=== PATIENT | female | born 1940 | race Caucasian/White ===

== ENCOUNTER → 2019-04-14 | Outpatient (CLI) | payer MEDICARE ==
[2019-04-14 11:36] LABS: African American GFR (CKD) >90 (>60 ml/min/1.73 sqM); Blood Urea Nitrogen 20 mg/dL (7-17); Non-African American GFR(CKD) 85 (>60 ml/min/1.73 sqM)
--- NOTE | 2019-04-14 13:58 | CT ---
EXAMINATION TYPE: CT ChestAbdPelvis wo/w con DATE OF EXAM: 04/14/2019 COMPARISON: Correlation to outside MRI lumbar spine report from 03/27/2019 HISTORY: 78-year-old female Splenomegaly TECHNIQUE: Contiguous axial scanning of the chest, abdomen, and pelvis performed without and with IV Contrast, patient injected with 100 mL of Isovue 300. Delayed images through the kidneys were obtaine d. Coronal/sagittal reconstructions performed. CT DLP: 1267.9 mGycm Automated exposure control for dose reduction was used. FINDINGS: CHEST: The heart normal size with trace anterior pericardial fluid. Scattered three-vessel coronary artery c alcifications are present as well as mild aortic valvular calcifications. Moderate atherosclerotic arch calcifications with conventional arch vessel branching anatomy. Heterogeneous hypodense nodule right lobe of thyroid gland measuring 2.2 cm to be further evaluated w ith thyroid ultrasound. Large caliber to the main right and left pulmonary arteries measuring up to 2.9 cm suggesting underly ing pulmonary arterial hypertension. No thoracic lymphadenopathy by CT size criteria. Calcified right hilar lymph nodes compatible with pr ior granulomatous disease. Numerous bilateral calcified granulomas within the lungs. Moderate centrilobular emphysema. Some stre aky atelectasis/scarring basilar right middle lobe and inferior lingula. Right apical pleural parench ymal scarring. A noncalcified 4 mm anterior right lower lung pulmonary nodule is noted on image 33 and should be keny ssessed at a 6 month follow-up. No consolidation or pleural effusion. ABDOMEN: Tiny hiatal hernia. Liver enlarged measuring 20.0 cm. No focal liver lesion. No biliary ductal dilatation. Portal venous system is patent. Cholecystectomy clips. Adrenal glands, kidneys, and pancreas appear within normal limits. Tiny punctate calcified granulomas within the spleen. Spleen is markedly enlarged measuring up to 20. 0 cm. No dilated small bowel, free fluid, or free air. No mesenteric or retroperitoneal lymphadenopathy. Moderate atherosclerotic calcification and plaque within the infrarenal abdominal aorta and iliac art eries without aneurysm. There is fusiform dilatation of the infrarenal abdominal aorta measuring soo uring up to 2.2 cm. No aneurysm. Scattered mild to moderate stool within the colon and left-sided colonic diverticulosis, greatest in the sigmoid colon. No pericolonic inflammatory change. PELVIS: Bladder is urine distended. Multiple pelvic phlebolith. Uterus surgically absent. Neither ovary is id entified. No abnormal fluid collection in the pelvis or pelvic lymphadenopathy. BONES: Heterogeneous sclerotic appearance throughout the osseous structures. Large heterogeneous enhancing solid mass with some cystic components within the musculature posterior to the right hip extending into the gluteal musculature and along the course of the right sciatic ne rve. This measures up to 7.6 cm craniocaudal by 7.1 cm wide by 4.1 cm AP dimension. IMPRESSION: 1. HEPATOSPLENOMEGALY (LIVER 20.0 CM AND SPLEEN ALSO 20.0 CM). 2. DIFFUSE HETEROGENEOUS SCLEROSIS THROUGHOUT THE OSSEOUS STRUCTURES. MYELOFIBROSIS, MYELOPROLIFERATI VE DISORDER, OR INFILTRATIVE PROCESS NOT EXCLUDED. FURTHER CLINICAL WORKUP RECOMMENDED. 3. LARGE HETEROGENEOUSLY ENHANCING SOFT TISSUE MASS INVOLVING THE MUSCULATURE OF THE POSTERIOR RIGHT HIP WITH SOME CYSTIC COMPONENTS. MASS MEASURES UP TO 7.6 CM. SARCOMA OR OTHER NEOPLASM ARE CONSIDERAT IONS. 4. A 2.2 CM RIGHT THYROID LOBE NODULE. DEDICATED THYROID ULTRASOUND RECOMMENDED TO FURTHER EVALUATE. 5. INCIDENTAL: COPD, PULMONARY ARTERIAL HYPERTENSION, PRIOR GRANULOMATOUS DISEASE, TINY HIATAL HERNIA , AND LEFT-SIDED COLONIC DIVERTICULOSIS.
== END | disposition home or self-care (01) ==
LOC: RADCTMAIN 10:37
PROVIDERS: ATTEND Surgery
DX: R16.2 Hepatomegaly with splenomegaly, not elsewhere classified (principal); E04.1 Nontoxic single thyroid nodule
CPT/HCPCS: 82565; 84520; 71270; 74178; 36415; Q9967 ×2

== ENCOUNTER → 2019-05-10 | Outpatient (CLI) | payer MEDICARE | END | disposition home or self-care (01) | DX: D48.1 Neoplasm of uncertain behavior of connective and other soft tissue (principal) | CPT/HCPCS: 36415; 80053; 84443; 85025; 85610; 85730 ==

== ENCOUNTER 2019-05-26 12:36 | Inpatient (IN) | payer MEDICARE ==
[~2019-05-26 12:36] MED LIST: PROPOFOL 10 MG/ML 20 ML VIAL IV ONE; SUCCINYLCHOLINE CHLORIDE VIAL 200 MG/10 ML VIAL IV ONE
[2019-05-26] MEDS ORDERED: SODIUM CHLORIDE 0.9% 1,000 ML IV STA (13:18)
--- NOTE | 2019-05-26 13:35 | ED ---
General Adult HPI - General Source: patient, RN notes reviewed Mode of arrival: ambulatory Limitations: no limitations <Cole Freedman - Last Filed: 05/26/19 15:16> <Benjie Gomez - Last Filed: 05/26/19 15:53> - General Chief complaint: Nausea/Vomiting/Diarrhea Stated complaint: aches and sweating Time Seen by Provider: 05/26/19 13:01 - History of Present Illness Initial comments: 78-year-old female with a past medical history of hypertension currently taking medications presents to the emergency department for nausea 4 days. Patient states that she has been very nauseous and unable to keep down solid foods. States she has been able to drink water and [employer]. States that when she tries to eat solid foods she "spits it up." States that she has also been sweating more than normal especially on her scalp but denies fevers. Denies cough. Patient denies any chest or abdominal pain. Denies shortness of breath. Does admit she feels somewhat weak if she has not been able to eat much. Patient was recently diagnosed with a large soft tissue mass involving the posterior right hip. She had this biopsied one week ago and is awaiting results.Patient has no other complaints at this time including shortness of breath, chest pain, abdominal pain, headache, or visual changes. (Cole Freedman) - Related Data Allergies Allergy/AdvReac Type Severity Reaction Status Date / Time No Known Allergies Allergy Verified 05/26/19 15:42 Review of Systems ROS Other: All systems not noted in ROS Statement are negative. <Cole Freedman - Last Filed: 05/26/19 15:16> ROS Other: All systems not noted in ROS Statement are negative. <Benjie Gomez - Last Filed: 05/26/19 15:53> ROS Statement: Those systems with pertinent positive or pertinent negative responses have been documented in the HPI. 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 History of Any Multi-Drug Resistant Organisms: None Reported Past Surgical History: Cholecystectomy, Hysterectomy, Orthopedic Surgery Additional Past Surgical History / Comment(s): bowel suspension,throat polyp removed,adhesions removed,lt shoulder Past Psychological History: Depression Smoking Status: Former smoker Past Alcohol Use History: Occasional Past Drug Use History: None Reported <Cole Freedman - Last Filed: 05/26/19 15:16> General Exam Limitations: no limitations General appearance: alert, in no apparent distress Head exam: Present: atraumatic, normocephalic, normal inspection Eye exam: Present: normal appearance, PERRL, EOMI. Absent: scleral icterus, conjunctival injection, periorbital swelling ENT exam: Present: normal exam, mucous membranes moist Neck exam: Present: normal inspection, full ROM. Absent: tenderness, meningismus, lymphadenopathy Respiratory exam: Present: normal lung sounds bilaterally. Absent: respiratory distress, wheezes, rales, rhonchi, stridor Cardiovascular Exam: Present: regular rate, normal rhythm, normal heart sounds. Absent: systolic murmur, diastolic murmur, rubs, gallop, clicks GI/Abdominal exam: Present: soft, normal bowel sounds. Absent: distended, tenderness, guarding, rebound, rigid Neurological exam: Present: alert <Cole Freedman - Last Filed: 05/26/19 15:16> Course Vital Signs 05/26/19 05/26/19 12:44 15:00 Temperature 98.4 F Pulse Rate 87 87 Respiratory 20 18 Rate Blood Pressure 123/72 149/71 O2 Sat by Pulse 97 95 Oximetry EKG Findings - EKG Comments: EKG Findings:: Normal sinus rhythm, ventricular rate 89, DE interval 116, QTc 467. 2nd EKG @ 1457 sinus rhythm, PVCs noted, ventricular rate 85, DE interval 122, QTc 471 <Cole Freedman - Last Filed: 05/26/19 15:16> Medical Decision Making - Lab Data Result diagrams: 05/26/19 13:29 05/26/19 13:29 <Cole Freedman - Last Filed: 05/26/19 15:16> - Lab Data Result diagrams: 05/26/19 13:29 05/26/19 13:29 <Benjie Gomez - Last Filed: 05/26/19 15:53> - Medical Decision Making Vitals are stable. Patient is a well-appearing. CBC shows chronic anemia with a hemoglobin of 10. CMP is unremarkable. Mild dehydration is noted and patient was given fluids. EKG was obtained which did show T-wave inversions. Given inversions without previous EKG to compare troponin was obtained which was found to be elevated at 0.418. Patient was given aspirin and started on low-dose heparin. EKG was repeated. Chest x-ray was obtained which showed mild peribronchial cuffing. There are subcentimeter bilateral pulmonary nodules seen on the prior CT from March. Patient did receive these results from her doctor. Dr. Gomez spoke with Dr. Huntley who does accept the admission, recommends echo. Cardiology consulted, trop trending. (Cole Freedman) Patient reevaluated and reexamined by myself, Dr. Gomez. EKGs and results reviewed. Patient updated on results and plan. Case was discussed in detail [facility] Dr. sujey reynolds, who will admit covering for hospital call. I do agree with PA findings. This includes diagnostic interpretation and treatment plan. (Benjie Gomez) - Lab Data Lab Results 05/26/19 05/26/19 05/26/19 Range/Units 13:29 13:29 13:29 WBC 5.7 (3.8-10.6) k/uL RBC 4.22 (3.80-5.40) m/uL Hgb 10.0 L (11.4-16.0) gm/dL Hct 31.8 L (34.0-46.0) % MCV 75.4 L D (80.0-100.0) fL MCH 23.7 L (25.0-35.0) pg MCHC 31.4 (31.0-37.0) g/dL RDW 18.3 H (11.5-15.5) % Plt Count 227 (150-450) k/uL Neutrophils % 83 % Lymphocytes % 9 % Monocytes % 5 % Eosinophils % 1 % Basophils % 0 % Neutrophils # 4.7 (1.3-7.7) k/uL Lymphocytes # 0.5 L (1.0-4.8) k/uL Monocytes # 0.3 (0-1.0) k/uL Eosinophils # 0.0 (0-0.7) k/uL Basophils # 0.0 (0-0.2) k/uL Hypochromasia Moderate Poikilocytosis Moderate Anisocytosis Slight Microcytosis Moderate PT 11.0 (9.0-12.0) sec INR 1.1 (<1.2) APTT 29.9 (22.0-30.0) sec Sodium 134 L (137-145) mmol/L Potassium 4.5 (3.5-5.1) mmol/L Chloride 98 (98-107) mmol/L Carbon Dioxide 26 (22-30) mmol/L Anion Gap 10 mmol/L BUN 22 H (7-17) mg/dL Creatinine 0.72 (0.52-1.04) mg/dL Est GFR (CKD-EPI)AfAm >90 (>60 ml/min/1.73 sqM) Est GFR (CKD-EPI)NonAf 82 (>60 ml/min/1.73 sqM) Glucose 118 H (74-99) mg/dL Calcium 8.7 (8.4-10.2) mg/dL Magnesium 1.8 (1.6-2.3) mg/dL Total Bilirubin 0.9 (0.2-1.3) mg/dL AST 20 (14-36) U/L ALT 11 (4-34) U/L Alkaline Phosphatase 219 H (38-126) U/L Troponin I (0.000-0.034) ng/mL Total Protein 6.4 (6.3-8.2) g/dL Albumin 3.7 (3.5-5.0) g/dL Urine Color Urine Appearance (Clear) Urine pH (5.0-8.0) Ur Specific [place] (1.001-1.035) Urine Protein (Negative) Urine Glucose (UA) (Negative) Urine Ketones (Negative) Urine Blood (Negative) Urine Nitrite (Negative) Urine Bilirubin (Negative) Urine Urobilinogen (<2.0) mg/dL Ur Leukocyte Esterase (Negative) Urine RBC (0-5) /hpf Urine WBC (0-5) /hpf Ur Squamous Epith Cells (0-4) /hpf Urine Bacteria (None) /hpf Hyaline Casts (0-2) /lpf Urine Mucus (None) /hpf 05/26/19 05/26/19 Range/Units 13:29 13:56 WBC (3.8-10.6) k/uL RBC (3.80-5.40) m/uL Hgb (11.4-16.0) gm/dL Hct (34.0-46.0) % MCV (80.0-100.0) fL MCH (25.0-35.0) pg MCHC (31.0-37.0) g/dL RDW (11.5-15.5) % Plt Count (150-450) k/uL Neutrophils % % Lymphocytes % % Monocytes % % Eosinophils % % Basophils % % Neutrophils # (1.3-7.7) k/uL Lymphocytes # (1.0-4.8) k/uL Monocytes # (0-1.0) k/uL Eosinophils # (0-0.7) k/uL Basophils # (0-0.2) k/uL Hypochromasia Poikilocytosis Anisocytosis Microcytosis PT (9.0-12.0) sec INR (<1.2) APTT (22.0-30.0) sec Sodium (137-145) mmol/L Potassium (3.5-5.1) mmol/L Chloride (98-107) mmol/L Carbon Dioxide (22-30) mmol/L Anion Gap mmol/L BUN (7-17) mg/dL Creatinine (0.52-1.04) mg/dL Est GFR (CKD-EPI)AfAm (>60 ml/min/1.73 sqM) Est GFR (CKD-EPI)NonAf (>60 ml/min/1.73 sqM) Glucose (74-99) mg/dL Calcium (8.4-10.2) mg/dL Magnesium (1.6-2.3) mg/dL Total Bilirubin (0.2-1.3) mg/dL AST (14-36) U/L ALT (4-34) U/L Alkaline Phosphatase (38-126) U/L Troponin I 0.418 H* (0.000-0.034) ng/mL Total Protein (6.3-8.2) g/dL Albumin (3.5-5.0) g/dL Urine Color Yellow Urine Appearance Turbid H (Clear) Urine pH 6.0 (5.0-8.0) Ur Specific [place] 1.028 (1.001-1.035) Urine Protein 1+ H (Negative) Urine Glucose (UA) Negative (Negative) Urine Ketones Negative (Negative) Urine Blood Negative (Negative) Urine Nitrite Negative (Negative) Urine Bilirubin Negative (Negative) Urine Urobilinogen 3.0 (<2.0) mg/dL Ur Leukocyte Esterase Moderate H (Negative) Urine RBC 2 (0-5) /hpf Urine WBC 12 H (0-5) /hpf Ur Squamous Epith Cells 1 (0-4) /hpf Urine Bacteria Rare H (None) /hpf Hyaline Casts 3 H (0-2) /lpf Urine Mucus Occasional H (None) /hpf Disposition Is patient prescribed a controlled substance at d/c from ED?: No Time of Disposition: 15:16 <Cole Freedman - Last Filed: 05/26/19 15:16> <Benjie Gomez - Last Filed: 05/26/19 15:53> Clinical Impression: Elevated troponin, NSTEMI (non-ST elevated myocardial infarction) Disposition: ADMITTED IP TO THIS HOSP
[2019-05-26 13:44] LABS: Anisocytosis Slight; Basophils % (A) 0 %; Eosinophils % (A) 1 %; HCT 31.8 % (34.0-46.0); Hypochromasia Moderate; Lymphocytes # (A) 0.5 k/uL (1.0-4.8); Lymphocytes % (A) 9 %; MCH 23.7 pg (25.0-35.0); MCHC 31.4 g/dL (31.0-37.0); Mean Platelet Volume 9.5; Microcytosis Moderate; Monocytes # (A) 0.3 k/uL (0-1.0); Monocytes % (A) 5 %; Neutrophils # (A) 4.7 k/uL (1.3-7.7); Neutrophils % (A) 83 %; Platelet Count 227 k/uL (150-450); Poikilocytosis Moderate; RBC 4.22 m/uL (3.80-5.40); RDW 18.3 % (11.5-15.5); WBC 5.7 k/uL (3.8-10.6)
[2019-05-26 13:53] LABS: MCV 75.4 fL (80.0-100.0)
[2019-05-26 13:54] LABS: INR 1.1 (<1.2); Partial Thromboplastin Time 29.9 sec (22.0-30.0)
[2019-05-26 13:58] LABS: African American GFR (CKD) >90 (>60 ml/min/1.73 sqM); Anion Gap 10 mmol/L; Blood Urea Nitrogen 22 mg/dL (7-17); Carbon Dioxide 26 mmol/L (22-30); Chloride 98 mmol/L (98-107); Glucose 118 mg/dL (74-99); Potassium 4.5 mmol/L (3.5-5.1); Sodium 134 mmol/L (137-145)
[2019-05-26 13:59] LABS: ALT 11 U/L (4-34); AST 20 U/L (14-36); Albumin 3.7 g/dL (3.5-5.0); Alkaline Phosphatase 219 U/L (38-126); Calcium 8.7 mg/dL (8.4-10.2); Magnesium 1.8 mg/dL (1.6-2.3); Non-African American GFR(CKD) 82 (>60 ml/min/1.73 sqM); Total Bilirubin 0.9 mg/dL (0.2-1.3); Total Protein 6.4 g/dL (6.3-8.2)
--- NOTE | 2019-05-26 14:09 | XR ---
EXAMINATION TYPE: XR chest 2V DATE OF EXAM: 05/26/2019 COMPARISON: CT dated 04/14/2019 HISTORY: Weakness and vomiting TECHNIQUE: Frontal and lateral views of the chest are obtained. FINDINGS: There is no focal air space opacity, pleural effusion, or pneumothorax seen. Peribronchia l cuffing is seen diffusely. Mild emphysematous changes of the lungs. The subcentimeter pulmonary nod ules are better seen on the prior CT. The cardiac silhouette size is mildly enlarged. The osseous s tructures are intact. Mild multilevel degenerative change of the spine. IMPRESSION: 1. Mild peribronchial cuffing that could be on the basis of reactive airway disease or acute infectio us etiology such as bronchitis. Mild emphysematous changes of the lungs. 2. The subcentimeter bilateral pulmonary nodules seen on the prior CT of 04/14/2019 are better visuali zed on CT than x-ray.
[2019-05-26] MEDS ORDERED: ONDANSETRON 4 MG/2 ML VIAL IVP STA (14:30)
[2019-05-26 14:39] LABS: Appearance,Urine Turbid (Clear); Bacteria,Urine Rare /hpf; Bilirubin,Urine Negative (Negative); Blood,Urine Negative (Negative); Color,Urine Yellow; Glucose,Urine (UA) Negative (Negative); Hyaline Casts,Urine 3 /lpf (0-2); Ketones,Urine Negative (Negative); Leukocyte Esterase,Urine Moderate (Negative); Mucus,Urine Occasional /hpf; Nitrite,Urine Negative (Negative); Protein,Urine 1+ (Negative); RBC,Urine 2 /hpf (0-5); Specific Gravity,Urine 1.028 (1.001-1.035); Squamous Epithelial Cell,Urine 1 /hpf (0-4); WBC,Urine 12 /hpf (0-5)
[2019-05-26] MEDS ORDERED: HEPARIN SODIUM,PORCINE 5,000 UNIT/ML 1 ML VIAL IV PRN (14:39)
[2019-05-26] MEDS ORDERED: HEPARIN SODIUM,PORCINE 5,000 UNIT/ML 1 ML VIAL IV ONE (14:39)
[2019-05-26] MEDS ORDERED: HEPARIN SOD,PORK IN 0.45% NACL 25,000 UNIT in 0.45% NACL 1 250ML.BAG IV SCH (14:45)
[2019-05-26] MEDS ORDERED: ASPIRIN 81 MG PO STA (14:50)
[2019-05-26] MEDS ORDERED: NITROGLYCERIN SL TABS 0.4 MG TAB SUBLINGUAL PRN (15:09)
[2019-05-26] MEDS ORDERED: PANTOPRAZOLE 40 MG TABLET PO STA (16:47)
--- NOTE | 2019-05-26 16:48 | P.HPIM ---
History of Present Illness H&P Date: 05/26/19 Chief Complaint: Nausea vomiting abdominal pain The patient is a 78-year-old female with a past medical history of essential hypertension That presented to the ER via private vehicle with chief complaint of epigastric abdominal pain and nausea and retching for the last 4 days. The patient reports decreased ability to keep food down, she reports the pain as moderate to severe denies any radiation, she denies diarrhea or constipation, she denies subjective fevers chills or night sweats. She is only able to keep down water and sosa drake, she reports repeated episodes of retching and denies any overt vomiting. She denies any chest pain, denies shortness of breath, denies any specific precipitating or relieving factors. The patient does follow with Dr. Flowers and is currently being worked up for right Posterior hip soft tissue mass that was apparently biopsied one week ago and she is currently waiting the results. She does report some lower extremity s welling. She denies any other complaints. The patient does report a cough but attributes to postnasal drip and ALLERGY symptoms In the ER showed her workup consisted of a chest x-ray showed mild peribronchial cuffing that could be on the basis of reactive air disease or infectious etiologies as bronchitis, with mild emphysematous changes of the long. She has bilateral pulmonary nodules that are again visualized on chest x-ray. Labs on admission include sodium of 134, troponin 0.418, EKG showed T-wave inversions. 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 History of Any Multi-Drug Resistant Organisms: None Reported Past Surgical History: Cholecystectomy, Hysterectomy, Orthopedic Surgery Additional Past Surgical History / Comment(s): bowel suspension,throat polyp removed,adhesions removed,lt shoulder Past Psychological History: Depression Smoking Status: Former smoker Past Alcohol Use History: Occasional Past Drug Use History: None Reported Medications and Allergies Home Medications Medication Instructions Recorded Confirmed Type Fosinopril [Monopril] 10 mg PO HS 05/26/19 05/26/19 History PARoxetine HCL [Paxil] 10 mg PO DAILY 05/26/19 05/26/19 History Allergies Allergy/AdvReac Type Severity Reaction Status Date / Time No Known Allergies Allergy Verified 05/26/19 15:42 Physical Exam Vitals: Vital Signs Temp Pulse Resp BP Pulse Ox 05/26/19 15:00 87 18 149/71 95 05/26/19 12:44 98.4 F 87 20 123/72 97 Intake and Output 05/26/19 05/26/19 05/26/19 06:59 14:59 22:59 Other: Weight 68.946 kg Constitutional: No acute distress, conversant, pleasant Eyes: Anicteric sclerae, moist conjunctiva, no lid-lag, PERRLA ENMT: NC/AT,Oropharynx clear, no erythema, exudates Neck:Supple, FROM, no masses, or JVD, No carotid bruits; No thyromegaly Lungs: Clear to auscultation, Clear to percussion, Normal respiratory effort, no accessory muscle use Cardiovascular: Heart regular in rate and rhythm, No murmurs, gallops, or rubs no peripheral edema Abdominal: Soft Nontender, nom distended, no guarding, no rebound or rigidity, Normoactive bowel sounds No hepatomegaly, No splenomegaly, No palpable mass No abdominal wall hernia noted Skin: Normal temperature, tone, texture, turgor, No induration No subcutaneous nodules, No rash, lesions, No ulcers Extremities:No digital cyanosis No clubbing, Pedal pulses intact and symmetrical Radial pulses intact and symmetrical Normal gait and station, No calf tenderness Psychiatric: Alert and oriented to person, place and time, Appropriate affect Intact judgement Neuro: Muscles Strength 5/5 in all 4 extremities, Sensation to light touch grossly present throughout, Cranial nerves II-XII grossly intact. No focal sensory deficits Results CBC & Chem 7: 05/26/19 13:29 05/26/19 13:29 Labs: Abnormal Lab Results - Last 24 Hours (Table) 05/26/19 05/26/19 05/26/19 Range/Units 13:29 13:29 13:29 Hgb 10.0 L (11.4-16.0) gm/dL Hct 31.8 L (34.0-46.0) % MCV 75.4 L D (80.0-100.0) fL MCH 23.7 L (25.0-35.0) pg RDW 18.3 H (11.5-15.5) % Lymphocytes # 0.5 L (1.0-4.8) k/uL Sodium 134 L (137-145) mmol/L BUN 22 H (7-17) mg/dL Glucose 118 H (74-99) mg/dL Alkaline Phosphatase 219 H (38-126) U/L Troponin I 0.418 H* (0.000-0.034) ng/mL Urine Appearance (Clear) Urine Protein (Negative) Ur Leukocyte Esterase (Negative) Urine WBC (0-5) /hpf Urine Bacteria (None) /hpf Hyaline Casts (0-2) /lpf Urine Mucus (None) /hpf 05/26/19 Range/Units 13:56 Hgb (11.4-16.0) gm/dL Hct (34.0-46.0) % MCV (80.0-100.0) fL MCH (25.0-35.0) pg RDW (11.5-15.5) % Lymphocytes # (1.0-4.8) k/uL Sodium (137-145) mmol/L BUN (7-17) mg/dL Glucose (74-99) mg/dL Alkaline Phosphatase (38-126) U/L Troponin I (0.000-0.034) ng/mL Urine Appearance Turbid H (Clear) Urine Protein 1+ H (Negative) Ur Leukocyte Esterase Moderate H (Negative) Urine WBC 12 H (0-5) /hpf Urine Bacteria Rare H (None) /hpf Hyaline Casts 3 H (0-2) /lpf Urine Mucus Occasional H (None) /hpf Assessment and Plan Assessment: Non-STEMI Intractable nausea and abdominal pain Viral bronchitis Essential hypertension Hyponatremia Hip tumor Plan: Patient is admitted anticipated in 2 midnight stay with concern for possible non-STEMI presenting with abdominal pain nausea noted to have elevated troponin of 0.418, will plan to trend her troponins, EKG showed some T-wave inversion. continue her on heparin drip and aspirin per chest pain protocol. We'll follow- up echocardiogram and cardiology recommendations, the patient is also have lymphopenia along with cough with noted peribronchial cuffing on chest x-ray, will order LDH, ferritin, Propulsid tone and Covid-19, we'll follow-up lipid panel. Noted abnormal urinalysis urine culture has been sent. The patient also has a chronic anemia , willl follow-up iron studies and continue to observe closely. The patient started on PPI and anticoagulation for GI and DVT prophylaxis respectively CODE STATUS: Full code Anticipated discharge place: Home Discussed plan of care with: Patient and nurse Greater than 60 minutes was spent in evaluation of this patient
[2019-05-26] MEDS: ONDANSETRON 4 MG/2 ML VIAL IVP PRN (21:23)
[2019-05-26] MEDS: lisinopriL 10 MG TAB PO SCH (21:23)
[2019-05-26] MEDS: HYDROcodone/APAP 10-325MG 1 EACH TAB PO PRN (23:09)
--- NOTE | 2019-05-27 00:36 | P.EN ---
I was notified by RN . patient falgged for possible sepsis I reviewed the case with SHERICE queen patient has no new complaints, she is here for R/O NSTEMI, and had GI symptoms currently with fever and tachycardia troponins trending down, no chest pain we reviewed possible sources of infection , and evaluate for need of antibiotics at this time, UA slightly abnormal but patient denies urinary symptoms no abd pain , no diarrhea at this time very mild occasional coughing, no SOB, no chest pain, no body aches (patient has chronic hip pain unchanged) patient being tested for COVID, and I highly suspect COVID-19 infection on her patient has received 1 L bolus normal saline in light of possible underlying COVID-19 most expert advise against initial IVF bolus and recommending conservative fluid resuscitation in patient with hypotension or shock currently SBP in 140s i would not give patient any further IVF at this time no identified source of infection that warrants ABx at this time no leukocytosis CXR reviewed plan close monitoring supportive care check Lactic acid
[2019-05-27] MEDS: ACETAMINOPHEN TAB 325 MG TAB PO PRN ×2 (01:27→08:30)
[2019-05-27 02:32] LABS: % Iron Saturation 3.83 (12.00-45.00)
[2019-05-27 02:38] LABS: Ferritin 524.4 ng/mL (10.0-291.0)
[2019-05-27] MEDS: PANTOPRAZOLE 40 MG TABLET PO SCH (05:17)
[2019-05-27] MEDS ORDERED: AZITHROMYCIN 500 MG TAB PO STA (07:52)
[2019-05-27 08:00] LABS: Anisocytosis Slight; Basophils % (A) 0 %; Eosinophils % (A) 0 %; HCT 29.6 % (34.0-46.0); HGB 9.1 gm/dL (11.4-16.0); Hypochromasia Moderate; Lymphocytes # (A) 0.6 k/uL (1.0-4.8); Lymphocytes % (A) 15 %; MCH 23.5 pg (25.0-35.0); MCHC 30.8 g/dL (31.0-37.0); MCV 76.3 fL (80.0-100.0); Mean Platelet Volume 9.7; Microcytosis Slight; Monocytes # (A) 0.2 k/uL (0-1.0); Monocytes % (A) 4 %; Neutrophils % (A) 78 %; Platelet Count 193 k/uL (150-450); Poikilocytosis Moderate; RBC 3.88 m/uL (3.80-5.40); RDW 18.2 % (11.5-15.5); WBC 3.8 k/uL (3.8-10.6)
[2019-05-27 08:02] LABS: Cholesterol 89 mg/dL (<200); HDL Cholesterol 26 mg/dL (40-60); LDL Cholesterol,Calculated 40 mg/dL (0-99); Triglycerides 115 mg/dL (<150)
[2019-05-27] MEDS: PARoxetine 10 MG TAB PO SCH (08:31)
[2019-05-27] MEDS: ASPIRIN 325 MG TAB PO SCH (08:31)
--- NOTE | 2019-05-27 09:26 | XR ---
EXAMINATION TYPE: XR chest 1V portable DATE OF EXAM: 05/27/2019 COMPARISON: 05/26/2019 HISTORY: Sepsis. Fever. Shortness of breath. TECHNIQUE: Single frontal view of the chest is obtained. FINDINGS: Paratracheal cuffing now appears as more prominent pulmonary vascular congestion. No new f ocal consolidation, pleural effusion or pneumothorax. Cardiomediastinal silhouette is shifted to the left secondary to patient rotation but overall stable in size. Mild degenerative change of the spine. IMPRESSION: Mild diffuse pulmonary vascular congestion that may be on the basis of cardiogenic or no ncardiogenic fluid overload.
[2019-05-27] MEDS: HYDROcodone/APAP 10-325MG 1 EACH TAB PO PRN ×3 (09:44→21:58)
[2019-05-27] MEDS: ONDANSETRON 4 MG/2 ML VIAL IVP PRN ×2 (09:45→16:03)
--- NOTE | 2019-05-27 09:50 | ECHOF ---
Referral Reason:NSTEMI MEASUREMENTS -------- HEIGHT: 160.0 cm WEIGHT: 76.2 kg BP: 120/62 RVIDd: 3.4 cm (< 3.3) IVSd: 1.1 cm (0.6 - 1.1) LVIDd: 4.5 cm (3.9 - 5.3) LVPWd: 1.1 cm (0.6 - 1.1) IVSs: 1.6 cm LVIDs: 3.3 cm LVPWs: 1.9 cm LA Diam: 3.7 cm (2.7 - 3.8) LAESV Index (A-L): 39.91 ml/m Ao Diam: 3.0 cm (2.0 - 3.7) AV Cusp: 1.7 cm (1.5 - 2.6) MV EXCURSION: 16.920 mm (> 18.000) MV EF SLOPE: 71 mm/s (70 - 150) EPSS: 0.9 cm MV E Henry: 1.25 m/s MV DecT: 147 ms MV A Henry: 1.20 m/s MV E/A Ratio: 1.04 RAP: 5.00 mmHg RVSP: 54.92 mmHg FINDINGS -------- Sinus rhythm. Resting tachycardia (HR>100bpm). This was a technically adequate study. The left ventricular size is normal. There is borderline concentric left ventricular hypertrophy. Overall left ventricular systolic function is normal with, an EF between 55 - 60 %. The right ventricle is mildly enlarged. LA is moderately dilated 34-39 ml/m2 The right atrial size is normal. Interatrial and interventricular septum intact. Can't exclude possible Bicuspid Aov. The mitral valve is normal. Phno-am-lireynng mitral regurgitation is present. Mild tricuspid regurgitation present. There is moderate to severe pulmonary hypertension. The rig ht ventricular systolic pressure, as measured by Doppler, is 54.92mmHg. Trace/mild (physiologic) pulmonic regurgitation. The aortic root size is normal. Normal inferior vena cava with normal inspiratory collapse consistent with estimated right atrial pre ssure of 5 mmHg. There is no pericardial effusion. CONCLUSIONS -------- 1. There is borderline concentric left ventricular hypertrophy. 2. Overall left ventricular systolic function is normal with, an EF between 55 - 60 %. 3. The right ventricle is mildly enlarged. 4. LA is moderately dilated 34-39 ml/m2 5. Can't exclude possible Bicuspid Aov. 6. Aghw-as-peuwojsp mitral regurgitation is present. 7. Mild tricuspid regurgitation present. 8. There is moderate to severe pulmonary hypertension. 9. The right ventricular systolic pressure, as measured by Doppler, is 54.92mmHg. 10. Trace/mild (physiologic) pulmonic regurgitation. 11. Normal inferior vena cava with normal inspiratory collapse consistent with estimated right atrial pressure of 5 mmHg. 12. There is no pericardial effusion. CHICKEN SEXER: Sabi Lo RDCS
[2019-05-27] MEDS: HYDROXYCHLOROQUINE SULFATE 200 MG TAB PO SCH ×2 (11:42→21:57)
--- NOTE | 2019-05-27 12:19 | P.PN ---
Subjective Progress Note Date: 05/27/19 Patient seen and examined at bedside apparently was febrile overnight the patient was flagged for possible sepsis, patient does complain of hip pain, the troponin went from 0.195-0.190. Inflammatory markers are elevated, Hemoglobin is 9.1 today, urinalysis also stress of infection influenza A and B were negative. Patient febrile overnight Objective - Vital Signs Vital signs: Vital Signs Temp 99.1 F 05/27/19 11:50 Pulse 72 05/27/19 11:50 Resp 18 05/27/19 11:50 BP 123/58 05/27/19 11:50 Pulse Ox 98 05/27/19 11:50 Intake & Output 05/26/19 05/27/19 05/27/19 18:59 06:59 18:59 Intake Total 240 306.468 Balance 240 306.468 Weight 68.946 kg 76.4 kg Intake: Intake, IV Titration 66.468 Amount Heparin Sod,Pork in 0.45% 66.468 NaCl 25,000 unit In 0.45 % NaCl 1 250ml.bag @ 12 UNITS/KG/HR 8.274 mls/hr IV .Q24H [facility] Rx#: [id number] Oral 240 240 Other: # Voids 2 - Exam Constitutional: No acute distress, conversant, pleasant Eyes: Anicteric sclerae, moist conjunctiva, no lid-lag, PERRLA ENMT: NC/AT,Oropharynx clear, no erythema, exudates Neck:Supple, FROM, no masses, or JVD, No carotid bruits; No thyromegaly Lungs: Scattered rhonchi, with bilateral basilar crackles, unlabored on 2 L via nasal cannula Cardiovascular: Heart regular in rate and rhythm, No murmurs, gallops, or rubs no peripheral edema Abdominal: Soft Nontender, nom distended, no guarding, no rebound or rigidity, Normoactive bowel sounds No hepatomegaly, No splenomegaly, No palpable mass No abdominal wall hernia noted Skin: Normal temperature, tone, texture, turgor, No induration No subcutaneous nodules, No rash, lesions, No ulcers Extremities:No digital cyanosis No clubbing, Pedal pulses intact and symmetrical Radial pulses intact and symmetrical Normal gait and station, No calf tenderness Psychiatric: Alert and oriented to person, place and time, Appropriate affect Intact judgement Neuro: Muscles Strength 5/5 in all 4 extremities, Sensation to light touch grossly present throughout, Cranial nerves II-XII grossly intact. No focal sensory deficits - Labs CBC & Chem 7: 05/27/19 07:21 05/26/19 13:29 Labs: Abnormal Lab Results - Last 24 Hours (Table) 05/26/19 05/26/19 05/26/19 Range/Units 13:29 13:29 13:29 Hgb 10.0 L (11.4-16.0) gm/dL Hct 31.8 L (34.0-46.0) % MCV 75.4 L D (80.0-100.0) fL MCH 23.7 L (25.0-35.0) pg MCHC (31.0-37.0) g/dL RDW 18.3 H (11.5-15.5) % Lymphocytes # 0.5 L (1.0-4.8) k/uL APTT (22.0-30.0) sec Sodium 134 L (137-145) mmol/L BUN 22 H (7-17) mg/dL Glucose 118 H (74-99) mg/dL Plasma Lactic Acid Mike (0.7-2.0) mmol/L Iron (50-170) ug/dL % Saturation (12.00-45.00) Ferritin (10.0-291.0) ng/mL Alkaline Phosphatase 219 H (38-126) U/L Lactate Dehydrogenase (313-618) U/L Troponin I 0.418 H* (0.000-0.034) ng/mL HDL Cholesterol (40-60) mg/dL Procalcitonin (0.02-0.09) ng/mL Urine Appearance (Clear) Urine Protein (Negative) Ur Leukocyte Esterase (Negative) Urine WBC (0-5) /hpf Urine Bacteria (None) /hpf Hyaline Casts (0-2) /lpf Urine Mucus (None) /hpf 05/26/19 05/26/19 05/26/19 Range/Units 13:56 20:37 20:37 Hgb (11.4-16.0) gm/dL Hct (34.0-46.0) % MCV (80.0-100.0) fL MCH (25.0-35.0) pg MCHC (31.0-37.0) g/dL RDW (11.5-15.5) % Lymphocytes # (1.0-4.8) k/uL APTT 52.7 H (22.0-30.0) sec Sodium (137-145) mmol/L BUN (7-17) mg/dL Glucose (74-99) mg/dL Plasma Lactic Acid Mike (0.7-2.0) mmol/L Iron (50-170) ug/dL % Saturation (12.00-45.00) Ferritin (10.0-291.0) ng/mL Alkaline Phosphatase (38-126) U/L Lactate Dehydrogenase (313-618) U/L Troponin I 0.195 H* (0.000-0.034) ng/mL HDL Cholesterol (40-60) mg/dL Procalcitonin (0.02-0.09) ng/mL Urine Appearance Turbid H (Clear) Urine Protein 1+ H (Negative) Ur Leukocyte Esterase Moderate H (Negative) Urine WBC 12 H (0-5) /hpf Urine Bacteria Rare H (None) /hpf Hyaline Casts 3 H (0-2) /lpf Urine Mucus Occasional H (None) /hpf 05/26/19 05/26/19 05/27/19 Range/Units 20:37 20:37 01:18 Hgb (11.4-16.0) gm/dL Hct (34.0-46.0) % MCV (80.0-100.0) fL MCH (25.0-35.0) pg MCHC (31.0-37.0) g/dL RDW (11.5-15.5) % Lymphocytes # (1.0-4.8) k/uL APTT (22.0-30.0) sec Sodium (137-145) mmol/L BUN (7-17) mg/dL Glucose (74-99) mg/dL Plasma Lactic Acid Mike (0.7-2.0) mmol/L Iron 9 L (50-170) ug/dL % Saturation 3.83 L (12.00-45.00) Ferritin 524.4 H (10.0-291.0) ng/mL Alkaline Phosphatase (38-126) U/L Lactate Dehydrogenase 1047 H (313-618) U/L Troponin I 0.190 H* (0.000-0.034) ng/mL HDL Cholesterol (40-60) mg/dL Procalcitonin 0.39 H (0.02-0.09) ng/mL Urine Appearance (Clear) Urine Protein (Negative) Ur Leukocyte Esterase (Negative) Urine WBC (0-5) /hpf Urine Bacteria (None) /hpf Hyaline Casts (0-2) /lpf Urine Mucus (None) /hpf 05/27/19 05/27/19 05/27/19 Range/Units 01:18 07:21 07:21 Hgb 9.1 L (11.4-16.0) gm/dL Hct 29.6 L (34.0-46.0) % MCV 76.3 L (80.0-100.0) fL MCH 23.5 L (25.0-35.0) pg MCHC 30.8 L (31.0-37.0) g/dL RDW 18.2 H (11.5-15.5) % Lymphocytes # 0.6 L (1.0-4.8) k/uL APTT (22.0-30.0) sec Sodium (137-145) mmol/L BUN (7-17) mg/dL Glucose (74-99) mg/dL Plasma Lactic Acid Mike <0.5 L (0.7-2.0) mmol/L Iron (50-170) ug/dL % Saturation (12.00-45.00) Ferritin (10.0-291.0) ng/mL Alkaline Phosphatase (38-126) U/L Lactate Dehydrogenase (313-618) U/L Troponin I (0.000-0.034) ng/mL HDL Cholesterol 26 L (40-60) mg/dL Procalcitonin (0.02-0.09) ng/mL Urine Appearance (Clear) Urine Protein (Negative) Ur Leukocyte Esterase (Negative) Urine WBC (0-5) /hpf Urine Bacteria (None) /hpf Hyaline Casts (0-2) /lpf Urine Mucus (None) /hpf 05/27/19 Range/Units 07:21 Hgb (11.4-16.0) gm/dL Hct (34.0-46.0) % MCV (80.0-100.0) fL MCH (25.0-35.0) pg MCHC (31.0-37.0) g/dL RDW (11.5-15.5) % Lymphocytes # (1.0-4.8) k/uL APTT 45.3 H (22.0-30.0) sec Sodium (137-145) mmol/L BUN (7-17) mg/dL Glucose (74-99) mg/dL Plasma Lactic Acid Mike (0.7-2.0) mmol/L Iron (50-170) ug/dL % Saturation (12.00-45.00) Ferritin (10.0-291.0) ng/mL Alkaline Phosphatase (38-126) U/L Lactate Dehydrogenase (313-618) U/L Troponin I (0.000-0.034) ng/mL HDL Cholesterol (40-60) mg/dL Procalcitonin (0.02-0.09) ng/mL Urine Appearance (Clear) Urine Protein (Negative) Ur Leukocyte Esterase (Negative) Urine WBC (0-5) /hpf Urine Bacteria (None) /hpf Hyaline Casts (0-2) /lpf Urine Mucus (None) /hpf Microbiology - Last 24 Hours (Table) 05/26/19 13:56 Urine Culture - Preliminary Urine,Voided Assessment and Plan Assessment: presumptive nCoV acute respiratory disease * With likely viral pneumonia, Covid 19 pending * Patient initiated on Plaquenil, azithromycin. zinc and vitamin C * Sepsis * The patient afebrile overnight no leukocytosis noted lymphopenia * Secondary to presumptive Covid 19 versus urinary tract infection (Initiated on Rocephin pending urine cultures * Urinalysis abnormal urine culture ordered, chest x-ray showing mild diffuse pulmonary vascular congestion cardiogenic versus noncardiogenic (Patient received a bolus of IV fluids due to the positive sepsis screen) recommend discontinuing all further IV fluids as to not precipitate ARDS inpatient pelvis suspicious for Covid 19 * ID consulted for further recommendations Elevated troponin * suspect secondary to Covid 19 * Echocardiogram showed a preserved LVEF of 55-60%, moderately dilated left atrium, mild to moderate MR, moderate to severe PAH Intractable nausea and abdominal pain * suspect secondary to Covid Essential hypertension * Blood pressure stable and controlled on home dose of Lisinopril Hyponatremia * We'll recheck labs tomorrow 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
[2019-05-27] MEDS: ZINC SULFATE 220 MG CAP PO SCH (14:30)
[2019-05-27 15:34] LABS: African American GFR (CKD) >90 (>60 ml/min/1.73 sqM); Anion Gap 6 mmol/L; Blood Urea Nitrogen 20 mg/dL (7-17); Calcium 8.5 mg/dL (8.4-10.2); Carbon Dioxide 24 mmol/L (22-30); Chloride 104 mmol/L (98-107); Glucose 98 mg/dL (74-99); Magnesium 1.9 mg/dL (1.6-2.3); Non-African American GFR(CKD) 87 (>60 ml/min/1.73 sqM); Phosphorus 4.1 mg/dL (2.5-4.5); Sodium 134 mmol/L (137-145)
--- NOTE | 2019-05-27 17:21 | CONS ---
CONSULTATION Tia Garcia is a 78-year-old lady with a diagnosis of hypertension and mild depression. She takes Monopril 10 mg daily and Paxil 10 mg daily. She also has past history of smoking and underlying COPD as well. She came into the hospital mainly with complaints of feeling severely nauseated and felt that she was also dehydrated, had abdominal discomfort and complained of some cough. There was also a question of fever. With these symptoms, she came into the hospital and subsequent evaluation, including troponin, revealed that there was a modest elevation of troponin but no trend. They were flat numbers, both of them, and I was asked to see her in this regard. This patient is resting comfortably at this time. Her nausea has abated. She is actually quite comfortable. She also has some other issues, including some soft tissue mass over the right posterior hip, for which she had a biopsy and is awaiting the results as well. At the time of my evaluation she is not in any distress. She is resting comfortably without symptoms. PAST MEDICAL HISTORY: 1. Hypertension. 2. Mild depression. 3. Some left hip soft tissue mass. ALLERGIES: NONE. REVIEW OF SYSTEMS: Unremarkable other than above-mentioned facts. When the patient arrived, she had a temperature of 100.1, but now she seems to be afebrile. Her troponin initially was 0.19, and a repeat one is also 0.19. Her lactic acid levels were normal. White count is also normal. Patient's prolactin level was elevated. Chest x-ray from this morning suggests diffuse pulmonary vascular congestion-type picture, but no clear-cut infiltrates. PHYSICAL EXAMINATION: Blood pressure is 128/70. Pulse rate is about 80 per minute, regular. HEENT: Unremarkable. Fundus was not examined by me. NECK: Supple. There is JVD of 1 cm. No carotid bruit. Heart exam reveals S1, S2 heard normally. There is a short systolic murmur. Lungs reveal decent air entry. Abdomen is soft, nontender. Lower extremities reveal diminished pulses. No edema. Central nervous system is normal. EKG revealed a sinus mechanism, precordial nonspecific T-wave abnormality. An echocardiogram was also performed this morning and revealed normal LV size and systolic function with severe pulmonary hypertension, right-sided pressures in the range of 50 to 55 mmHg. There is also some aortic sclerosis noted. IMPRESSION: 1. Abnormal troponin, probably unrelated to myocardial injury. 2. Nausea, fever and cough. Rule out COVID-19 infection under the circumstances. 3. Hypertension. 4. History of mild depression. RECOMMENDATIONS: I am recommending that we add a small dose of beta leandra. Keep her reasonably well hydrated. Echo revealed preserved systolic function. No aggressive workup for her troponin at this time. When she is more stable and discharged, as an outpatient we can consider stress testing. We will continue to see her as needed. Thank you very much for the consult. PRAKASH / VIVEK: [id number] /
[2019-05-27] MEDS: lisinopriL 10 MG TAB PO SCH (21:58)
[2019-05-27] MEDS: METOPROLOL TARTRATE 25 MG TAB PO SCH (21:58)
[2019-05-27] MEDS: HEPARIN SODIUM,PORCINE 5,000 UNIT/ML 1 ML VIAL SQ SCH (22:00)
[2019-05-28] MEDS: PANTOPRAZOLE 40 MG TABLET PO SCH (06:39)
[2019-05-28] MEDS: AZITHROMYCIN 250 MG TAB PO SCH (08:48)
[2019-05-28] MEDS: ASPIRIN 81 MG PO SCH (08:48)
[2019-05-28] MEDS: ONDANSETRON 4 MG/2 ML VIAL IVP PRN (08:49)
[2019-05-28] MEDS: PARoxetine 10 MG TAB PO SCH (08:49)
[2019-05-28] MEDS: HEPARIN SODIUM,PORCINE 5,000 UNIT/ML 1 ML VIAL SQ SCH ×2 (08:49→21:48)
[2019-05-28] MEDS: HYDROXYCHLOROQUINE SULFATE 200 MG TAB PO SCH ×2 (08:49→21:48)
[2019-05-28] MEDS: METOPROLOL TARTRATE 25 MG TAB PO SCH ×2 (08:49→21:47)
[2019-05-28] MEDS: ZINC SULFATE 220 MG CAP PO SCH (08:50)
[2019-05-28] MEDS: HYDROcodone/APAP 10-325MG 1 EACH TAB PO PRN ×2 (08:50→21:47)
--- NOTE | 2019-05-28 08:57 | P.CONS ---
History of Present Illness - Reason for Consult Consult date: 05/27/19 Fever--?COVID19 Requesting physician: Rajeev Watts - Chief Complaint nausea and vomiting x few days - History of Present Illness Patient is a 78-year-old female presenting to the ER at [facility] yesterday with chief complaints of nausea and vomiting for the last 4 days the patient said he was unable to keep anything solid down she has been drinking mostly water and 1 years denies having any abdominal pain had no diarrhea patient reported sweating her but no high-grade fever denies any cough chest pain shortness of breath or cough patient noticed herself to be getting weak and unable to eat much with the symptom the patient presented to [facility] ER on arrival to the ER patient was afebrile subsequently spiked a fever of 101 F patient was mildly tachycardic no significant hypoxemia on a blood work she did have a normal white count however did have lymphopenia also noticed to have elevated LDH of 1047 procalcitonin mildly elevated CRP has not been done and did have mild elevated troponin patient did have a chest x-ray mild peribronchial cuffing could be on the basis of reactive airway disease disease repeat x-ray this morning mild diffuse pulmonary vascular congestion on the basis of cardiogenic or noncardiogenic fluid overload infectious disease has been consulted for further recommendation and concern for possible COVID-19 infection. Review of Systems Positive point has been mentioned in HPI rest of the systems are negative 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 History of Any Multi-Drug Resistant Organisms: None Reported Past Surgical History: Cholecystectomy, Hysterectomy, Orthopedic Surgery Additional Past Surgical History / Comment(s): bowel suspension,throat polyp removed,adhesions removed,lt shoulder Past Anesthesia/Blood Transfusion Reactions: No Reported Reaction Past Psychological History: Depression Smoking Status: Former smoker Past Alcohol Use History: Occasional Past Drug Use History: None Reported - Past Family History Father Additional Family Medical History / Comment(s): pancreatic CA Mother Additional Family Medical History / Comment(s): Colon CA Medications and Allergies Home Medications Medication Instructions Recorded Confirmed Type Fosinopril [Monopril] 10 mg PO HS 05/26/19 05/26/19 History PARoxetine HCL [Paxil] 10 mg PO DAILY 05/26/19 05/26/19 History Allergies Allergy/AdvReac Type Severity Reaction Status Date / Time No Known Allergies Allergy Verified 05/26/19 15:42 Physical Exam Vitals: Vital Signs Temp Pulse Resp BP Pulse Ox 05/27/19 16:00 99.1 F 78 20 120/59 99 05/27/19 11:50 99.1 F 72 18 123/58 98 05/27/19 08:36 122/56 05/27/19 08:00 100.1 F H 98 24 181/81 95 05/27/19 04:00 98.1 F 78 16 120/62 99 05/27/19 00:00 105 H 16 05/26/19 23:57 101.2 F H 105 H 16 147/66 93 L Intake and Output 05/27/19 05/27/19 05/27/19 06:59 14:59 22:59 Intake Total 306.468 225.6 Balance 306.468 225.6 Intake: IV 225.6 Heparin Sod,Pork in 0.45% 65.6 NaCl 25,000 unit In 0.45 % NaCl 1 250ml.bag @ 12 UNITS/KG/HR 8.274 mls/hr IV .Q24H [facility] Rx#: [id number] Sodium Chloride 0.9% 1, 160 000 ml @ 999 mls/hr IV . Q1H1M [facility] Rx#:[id number] Intake, IV Titration 66.468 Amount Heparin Sod,Pork in 0.45% 66.468 NaCl 25,000 unit In 0.45 % NaCl 1 250ml.bag @ 12 UNITS/KG/HR 8.274 mls/hr IV .Q24H [facility] Rx#: [id number] Oral 240 Other: Voiding Method Toilet # Voids 2 1 # Bowel Movements 1 Weight 76.4 kg 76.4 kg GENERAL DESCRIPTION: Elderly female lying in bed, no distress. No tachypnea or accessory muscle of respiration use. HEENT: Shows Pallor , no scleral icterus. Oral mucous membrane is dry. NECK: Trachea central, no thyromegaly. LUNGS: Unlabored breathing. Decrease intensity of breath sounds. No wheeze or crackle. HEART: S1, S2, regular rate and rhythm. ABDOMEN: Soft, no tenderness , guarding or rigidity EXTREMITIES: No edema of feet. SKIN: No rash, no masses palpable. NEUROLOGICAL: The patient is awake, alert, oriented x3, mood and affect normal. Results CBC & Chem 7: 05/27/19 07:21 05/27/19 07:21 Labs: Abnormal Lab Results - Last 24 Hours (Table) 05/26/19 05/26/19 05/26/19 Range/Units 17:37 20:37 20:37 Hgb (11.4-16.0) gm/dL Hct (34.0-46.0) % MCV (80.0-100.0) fL MCH (25.0-35.0) pg MCHC (31.0-37.0) g/dL RDW (11.5-15.5) % Lymphocytes # (1.0-4.8) k/uL APTT (22.0-30.0) sec Sodium (137-145) mmol/L BUN (7-17) mg/dL Plasma Lactic Acid Mike (0.7-2.0) mmol/L Iron 9 L (50-170) ug/dL % Saturation 3.83 L (12.00-45.00) Ferritin 524.4 H (10.0-291.0) ng/mL Troponin I (0.000-0.034) ng/mL HDL Cholesterol (40-60) mg/dL Procalcitonin 0.39 H (0.02-0.09) ng/mL Coronavirus (PCR) Detected H (Not Detected) 05/27/19 05/27/19 05/27/19 Range/Units 01:18 01:18 07:21 Hgb 9.1 L (11.4-16.0) gm/dL Hct 29.6 L (34.0-46.0) % MCV 76.3 L (80.0-100.0) fL MCH 23.5 L (25.0-35.0) pg MCHC 30.8 L (31.0-37.0) g/dL RDW 18.2 H (11.5-15.5) % Lymphocytes # 0.6 L (1.0-4.8) k/uL APTT (22.0-30.0) sec Sodium (137-145) mmol/L BUN (7-17) mg/dL Plasma Lactic Acid Mike <0.5 L (0.7-2.0) mmol/L Iron (50-170) ug/dL % Saturation (12.00-45.00) Ferritin (10.0-291.0) ng/mL Troponin I 0.190 H* (0.000-0.034) ng/mL HDL Cholesterol (40-60) mg/dL Procalcitonin (0.02-0.09) ng/mL Coronavirus (PCR) (Not Detected) 05/27/19 05/27/19 05/27/19 Range/Units 07:21 07:21 07:21 Hgb (11.4-16.0) gm/dL Hct (34.0-46.0) % MCV (80.0-100.0) fL MCH (25.0-35.0) pg MCHC (31.0-37.0) g/dL RDW (11.5-15.5) % Lymphocytes # (1.0-4.8) k/uL APTT 45.3 H (22.0-30.0) sec Sodium 134 L (137-145) mmol/L BUN 20 H (7-17) mg/dL Plasma Lactic Acid Mike (0.7-2.0) mmol/L Iron (50-170) ug/dL % Saturation (12.00-45.00) Ferritin (10.0-291.0) ng/mL Troponin I (0.000-0.034) ng/mL HDL Cholesterol 26 L (40-60) mg/dL Procalcitonin (0.02-0.09) ng/mL Coronavirus (PCR) (Not Detected) Microbiology - Last 24 Hours (Table) 05/26/19 13:56 Urine Culture - Preliminary Urine,Voided Gram Neg Bacilli Assessment and Plan Assessment: patient presented hospital predominantly with GI symptoms however this patient did have a fever she has lymphopenia with a pulmonary infiltrate and elevated LDH high clinical suspicious for acute component infection (1) Fever Current Visit: Yes Status: Acute Code(s): R50.9 - FEVER, UNSPECIFIED SNOMED Code(s): 978855695 Plan: 1-we will start the patient on Plaquenil 400 g twice daily x1 day followed by 200 mg twice daily for 4 days 2-droplet isolation and respiratory support while waiting for the COVID-19 testing 3-symptomatic treatment of her nausea We will follow on clinical condition and cultures to further adjust medication if needed Thank you for this consultation we will follow the patient along with you Time with Patient: Greater than 30
--- NOTE | 2019-05-28 10:24 | XR ---
EXAMINATION TYPE: XR chest 1V portable DATE OF EXAM: 05/28/2019 HISTORY: Shortness of breath. COMPARISON: May 27, 2019 TECHNIQUE: Single view of the chest is submitted. FINDINGS: Demonstrated are scattered senescent parenchymal change. Again noted and without significant interval change are scattered bilateral interstitial and airspace infiltrates. Correlate for COVID 19 related pneumonia. The heart is stable. Hilar and mediastinal structures are within normal limits. Degenerative changes are seen of the dorsal spine. IMPRESSION: 1. Again noted and without significant interval change are scattered bilateral interstitial and airs pace infiltrates. Correlate for COVID 19 related pneumonia.
--- NOTE | 2019-05-28 12:08 | P.PN ---
Subjective Progress Note Date: 05/28/19 Patient seen and examined at bedside apparently had a low-grade fever 99.6 overnight the patient denies nausea Or abdominal pain, reports her breathing is improved reports she is tired secondary to having poor sleep. Reports her appetite is diminished but improving of an approximately 25% of her breakfast Objective - Vital Signs Vital signs: Vital Signs Temp 99.6 F 05/28/19 08:46 Pulse 101 H 05/28/19 08:46 Resp 16 05/28/19 08:46 BP 135/61 05/28/19 08:46 Pulse Ox 96 05/28/19 08:46 Intake & Output 05/27/19 05/28/19 05/28/19 18:59 06:59 18:59 Intake Total 225.6 480 170 Balance 225.6 480 170 Weight 76.4 kg 78 kg Intake: IV 225.6 Heparin Sod,Pork in 0.45% 65.6 NaCl 25,000 unit In 0.45 % NaCl 1 250ml.bag @ 12 UNITS/KG/HR 8.274 mls/hr IV .Q24H [facility] Rx#: [id number] Sodium Chloride 0.9% 1, 160 000 ml @ 999 mls/hr IV . Q1H1M [facility] Rx#:[id number] Intake, IV Titration 50 Amount cefTRIAXone 1 gm In 50 Sodium Chloride 0.9% 50 ml @ 100 mls/hr IVPB Q24HR [facility] Rx#:[id number] Oral 480 120 Other: Voiding Method Toilet Toilet Toilet # Voids 1 2 # Bowel Movements 1 - Exam Constitutional: No acute distress, conversant, pleasant Eyes: Anicteric sclerae, moist conjunctiva, no lid-lag, PERRLA ENMT: NC/AT,Oropharynx clear, no erythema, exudates Neck:Supple, FROM, no masses, or JVD, No carotid bruits; No thyromegaly Lungs: Scattered rhonchi, with bilateral basilar crackles, unlabored on 2 L via nasal cannula Cardiovascular: Heart regular in rate and rhythm, No murmurs, gallops, or rubs no peripheral edema Abdominal: Soft Nontender, nom distended, no guarding, no rebound or rigidity, Normoactive bowel sounds No hepatomegaly, No splenomegaly, No palpable mass No abdominal wall hernia noted Skin: Normal temperature, tone, texture, turgor, No induration No subcutaneous nodules, No rash, lesions, No ulcers Extremities:No digital cyanosis No clubbing, Pedal pulses intact and symmetrical Radial pulses intact and symmetrical Normal gait and station, No calf tenderness Psychiatric: Alert and oriented to person, place and time, Appropriate affect Intact judgement Neuro: Muscles Strength 5/5 in all 4 extremities, Sensation to light touch grossly present throughout, Cranial nerves II-XII grossly intact. No focal sensory deficits - Labs CBC & Chem 7: 05/27/19 07:21 05/27/19 07:21 Labs: Abnormal Lab Results - Last 24 Hours (Table) 05/26/19 05/27/19 Range/Units 17:37 07:21 Sodium 134 L (137-145) mmol/L BUN 20 H (7-17) mg/dL Coronavirus (PCR) Detected H (Not Detected) Microbiology - Last 24 Hours (Table) 05/26/19 13:56 Urine Culture - Preliminary Urine,Voided Gram Neg Bacilli Assessment and Plan Assessment: nCoV acute respiratory disease * With likely viral pneumonia, Covid 19 pending * Patient initiated on Plaquenil, azithromycin. zinc and vitamin C * Chest x-ray showing scattered bilateral interstitial airspace disease consistent with Covid Sepsis * The patient afebrile overnight no leukocytosis noted lymphopenia * Secondary to presumptive Covid 19 versus urinary tract infection (Initiated on Rocephin pending urine cultures * Urinalysis abnormal urine culture ordered, chest x-ray showing mild diffuse pulmonary vascular congestion cardiogenic versus noncardiogenic (Patient received a bolus of IV fluids due to the positive sepsis screen) recommend discontinuing all further IV fluids as to not precipitate ARDS inpatient pelvis suspicious for Covid 19 * Appreciate ID recommendations Elevated troponin * suspect secondary to Covid 19 * Echocardiogram showed a preserved LVEF of 55-60%, moderately dilated left atrium, mild to moderate MR, moderate to severe PAH Intractable nausea and abdominal pain * suspect secondary to Covid Essential hypertension * Blood pressure stable and controlled on home dose of Lisinopril Hyponatremia * Improved with IV fluids now discontinued 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
[2019-05-28] MEDS: ACETAMINOPHEN TAB 325 MG TAB PO PRN (15:45)
[2019-05-28] MEDS: lisinopriL 10 MG TAB PO SCH (21:48)
[2019-05-29] MEDS: HYDROcodone/APAP 10-325MG 1 EACH TAB PO PRN ×3 (06:22→22:00)
[2019-05-29] MEDS: PANTOPRAZOLE 40 MG TABLET PO SCH (06:22)
[2019-05-29 06:38] LABS: Anisocytosis Slight; HGB 9.3 gm/dL (11.4-16.0); Hypochromasia Moderate; MCH 23.4 pg (25.0-35.0); MCHC 31.1 g/dL (31.0-37.0); MCV 75.2 fL (80.0-100.0); Mean Platelet Volume 9.5; Microcytosis Moderate; Platelet Count 213 k/uL (150-450); Poikilocytosis Moderate; RBC 3.99 m/uL (3.80-5.40); RDW 18.2 % (11.5-15.5); WBC 3.6 k/uL (3.8-10.6)
[2019-05-29 08:22] LABS: Anisocytosis Slight; Hypochromasia Marked; MCH 23.5 pg (25.0-35.0); MCHC 28.6 g/dL (31.0-37.0); Mean Platelet Volume 12.1; Microcytosis Slight; Platelet Count 223 k/uL (150-450); Poikilocytosis Slight; RBC 4.25 m/uL (3.80-5.40); RDW 17.9 % (11.5-15.5)
[2019-05-29 08:27] LABS: MCV 82.2 fL (80.0-100.0)
[2019-05-29] MEDS: AZITHROMYCIN 250 MG TAB PO SCH (09:21)
[2019-05-29] MEDS: ASPIRIN 81 MG PO SCH (09:21)
[2019-05-29] MEDS: FERROUS SULFATE 325 MG TAB PO SCH ×2 (09:21→17:30)
[2019-05-29] MEDS: METOPROLOL TARTRATE 25 MG TAB PO SCH ×2 (09:22→22:00)
[2019-05-29] MEDS: HEPARIN SODIUM,PORCINE 5,000 UNIT/ML 1 ML VIAL SQ SCH ×2 (09:22→22:01)
[2019-05-29] MEDS: HYDROXYCHLOROQUINE SULFATE 200 MG TAB PO SCH ×2 (09:22→22:00)
[2019-05-29] MEDS: ZINC SULFATE 220 MG CAP PO SCH (09:22)
[2019-05-29] MEDS: PARoxetine 10 MG TAB PO SCH (09:22)
[2019-05-29 09:25] LABS: Band Neutrophils % 2 %; Eosinophils # (M) 0.04 k/uL (0-0.7); Lymphocytes # (M) 0.29 k/uL (1.0-4.8); Metamyelocytes # (M) 0.04 k/uL (0); Metamyelocytes % 1 %; Monocytes # (M) 0.11 k/uL (0-1.0); Myelocytes # (M) 0.04 k/uL (0); Myelocytes % 1 %; Neutrophils % (M) 86 %; Nucleated Red Blood Cells 0 /100 WBC (0-0); Total Cells Counted 200
[2019-05-29 09:27] LABS: Tear Drop Cells Present
[2019-05-29] MEDS: ONDANSETRON 4 MG/2 ML VIAL IVP PRN ×2 (10:54→22:00)
[2019-05-29 11:54] LABS: Band Neutrophils % 6 %; Basophils # (M) 0.05 k/uL (0-0.2); Metamyelocytes % 2 %; Monocytes # (M) 0.31 k/uL (0-1.0); Myelocytes % 2 %; Neutrophils % (M) 73 %; Nucleated Red Blood Cells 1 /100 WBC (0-0); Total Cells Counted 200
[2019-05-29 11:55] LABS: Lymphocytes # (M) 0.61 k/uL (1.0-4.8); WBC 5.1 k/uL (3.8-10.6)
[2019-05-29 11:56] LABS: Tear Drop Cells Present
[2019-05-29 11:57] LABS: Large Platelets Present
--- NOTE | 2019-05-29 15:52 | P.PN ---
Subjective Progress Note Date: 05/29/19 Patient seen and examined at bedside. Earlier today patient's oxygen desaturated to 70% because her oxygen was off. Nasal cannula was titrated to 4 L and patient has improved. Patient denies chest pain has intermittent shortness of breath. Today patient is experiencing watery diarrhea she denies abdominal pain. Overall patient feels fair. Objective - Vital Signs Vital signs: Vital Signs Temp 99.5 F 05/29/19 09:20 Pulse 85 05/29/19 09:20 Resp 18 05/29/19 09:20 BP 123/58 05/29/19 09:20 Pulse Ox 94 L 05/29/19 09:20 Intake & Output 05/28/19 05/29/19 05/29/19 18:59 06:59 18:59 Intake Total 290 240 Balance 290 240 Weight 65.771 kg Intake: Intake, IV Titration 50 Amount cefTRIAXone 1 gm In 50 Sodium Chloride 0.9% 50 ml @ 100 mls/hr IVPB Q24HR [facility] Rx#:[id number] Oral 240 240 Other: Voiding Method Toilet Toilet # Voids 2 1 1 # Bowel Movements 1 - Exam General: [non toxic], [no distress], [appears at stated age] Derm: [warm], [dry] Head: [atraumatic], [normocephalic], [symmetric] Eyes: [EOMI], [no lid lag], [anicteric sclera] Mouth: [no lip lesion], [mucus membranes moist] Cardiovascular: [S1S2 reg], [no murmur], [positive posterior tibial pulse bilateral], Lungs: [diminished breath sounds bilateral], [no rhonchi, no rales] , [no accessory muscle use] Abdominal: [soft], [ nontender to palpation], [no guarding], [no appreciable organomegaly] Ext: [no gross muscle atrophy], [no edema], [no contractures] Neuro: [ CN II-XI grossly intact], [no focal neuro deficits] Psych: [Alert], [oriented], [appropriate affect] - Labs CBC & Chem 7: 05/29/19 06:28 05/27/19 07:21 Labs: Abnormal Lab Results - Last 24 Hours (Table) 05/29/19 05/29/19 Range/Units 05:57 06:28 WBC 3.6 L (3.8-10.6) k/uL Hgb 9.3 L 10.0 L (11.4-16.0) gm/dL Hct 30.0 L (34.0-46.0) % MCV 75.2 L (80.0-100.0) fL MCH 23.4 L 23.5 L (25.0-35.0) pg MCHC 28.6 L (31.0-37.0) g/dL RDW 18.2 H 17.9 H (11.5-15.5) % Lymphocytes # (Manual) 0.29 L 0.61 L (1.0-4.8) k/uL Metamyelocytes # (Man) 0.04 H 0.10 H (0) k/uL Myelocytes # (Manual) 0.04 H 0.10 H (0) k/uL Nucleated RBCs 1 H (0-0) /100 WBC Microbiology - Last 24 Hours (Table) 05/26/19 13:56 Urine Culture - Final Urine,Voided Escherichia coli Assessment and Plan Assessment: Acute respiratory disease secondary to COVID 19 pneumonia Chest x-ray showing scattered bilateral interstitial airspace disease consis tent with Covid Sepsis Low grade fever no leukocytosis noted lymphopenia Secondary to Covid 19 and urinary tract infection Appreciate ID recommendations Abx per ID Diarrhea likely caused by IV Abx r/o c. 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
[2019-05-29] MEDS: SODIUM CHLORIDE 0.9% 1,000 ML IV SCH (17:32)
[2019-05-29] MEDS: lisinopriL 10 MG TAB PO SCH (22:00)
[2019-05-30] MEDS: SODIUM CHLORIDE 0.9% 1,000 ML IV SCH ×2 (05:46→17:00)
[2019-05-30] MEDS: HYDROcodone/APAP 10-325MG 1 EACH TAB PO PRN ×3 (05:46→19:57)
[2019-05-30] MEDS: FERROUS SULFATE 325 MG TAB PO SCH ×2 (05:47→16:57)
[2019-05-30] MEDS: PANTOPRAZOLE 40 MG TABLET PO SCH (05:47)
[2019-05-30 07:10] LABS: ALT 12 U/L (4-34); AST 21 U/L (14-36); African American GFR (CKD) >90 (>60 ml/min/1.73 sqM); Albumin 2.9 g/dL (3.5-5.0); Alkaline Phosphatase 190 U/L (38-126); Anion Gap 7 mmol/L; Blood Urea Nitrogen 27 mg/dL (7-17); Calcium 8.2 mg/dL (8.4-10.2); Carbon Dioxide 22 mmol/L (22-30); Chloride 105 mmol/L (98-107); Glucose 143 mg/dL (74-99); LDH 1363 U/L (313-618); Non-African American GFR(CKD) >90 (>60 ml/min/1.73 sqM); Potassium 4.2 mmol/L (3.5-5.1); Sodium 134 mmol/L (137-145); Total Bilirubin 0.4 mg/dL (0.2-1.3); Total Protein 5.5 g/dL (6.3-8.2)
[2019-05-30 07:26] LABS: Anisocytosis Slight; Basophils % (A) 0 %; Eosinophils % (A) 1 %; HCT 28.3 % (34.0-46.0); HGB 8.6 gm/dL (11.4-16.0); Hypochromasia Marked; Lymphocytes # (A) 0.4 k/uL (1.0-4.8); Lymphocytes % (A) 8 %; MCH 23.1 pg (25.0-35.0); MCHC 30.4 g/dL (31.0-37.0); Mean Platelet Volume 10.1; Microcytosis Slight; Monocytes # (A) 0.2 k/uL (0-1.0); Monocytes % (A) 4 %; Neutrophils # (A) 3.8 k/uL (1.3-7.7); Neutrophils % (A) 86 %; Platelet Count 246 k/uL (150-450); Poikilocytosis Moderate; RBC 3.72 m/uL (3.80-5.40); RDW 17.4 % (11.5-15.5); WBC 4.4 k/uL (3.8-10.6)
[2019-05-30 07:29] LABS: MCV 76.1 fL (80.0-100.0)
[2019-05-30] MEDS ORDERED: lisinopriL 20 MG TAB PO SCH (09:00)
[2019-05-30] MEDS: HEPARIN SODIUM,PORCINE 5,000 UNIT/ML 1 ML VIAL SQ SCH ×2 (09:12→19:57)
[2019-05-30] MEDS: AZITHROMYCIN 250 MG TAB PO SCH (09:13)
[2019-05-30] MEDS: ZINC SULFATE 220 MG CAP PO SCH (09:13)
[2019-05-30] MEDS: ASPIRIN 81 MG PO SCH (09:13)
[2019-05-30] MEDS: PARoxetine 10 MG TAB PO SCH (09:13)
[2019-05-30] MEDS: HYDROXYCHLOROQUINE SULFATE 200 MG TAB PO SCH ×2 (09:13→20:11)
[2019-05-30] MEDS: METOPROLOL TARTRATE 25 MG TAB PO SCH ×2 (09:13→19:57)
[2019-05-30] MEDS: ONDANSETRON 4 MG/2 ML VIAL IVP PRN ×2 (12:00→19:57)
[2019-05-30 12:35] LABS: Anisocytosis Slight; HCT 29.3 % (34.0-46.0); Hypochromasia Moderate; MCHC 30.5 g/dL (31.0-37.0); MCV 75.4 fL (80.0-100.0); Mean Platelet Volume 9.4; Microcytosis Moderate; Platelet Count 222 k/uL (150-450); Poikilocytosis Moderate; RBC 3.89 m/uL (3.80-5.40); RDW 18.2 % (11.5-15.5); WBC 5.2 k/uL (3.8-10.6)
--- NOTE | 2019-05-30 15:25 | P.PN ---
Subjective Progress Note Date: 05/30/19 Principal diagnosis: COVID 19 Pneumonia Patient seen and examined at bedside. Patient is positive for COV ID 19 pneumonia. Patient's blood pressure has been elevated. Earlier this morning lisinopril was increased to 20 mg. Unfortunately blood pressure continues to be elevated this afternoon. Lisinopril will be increased to 20 mg twice a day. Yesterday there was concern for C. diff. However since yesterday's episode of watery diarrhea patient has had no bowel movements. Hence no collection for C. diff was obtained. Patient denies chest pain. Shortness resting comfortably on 94 L nasal cannula. Patient was on 7 L yesterday. Objective - Vital Signs Vital signs: Vital Signs Temp 98.6 F 05/30/19 11:50 Pulse 77 05/30/19 11:50 Resp 18 05/30/19 11:50 BP 162/73 05/30/19 11:50 Pulse Ox 95 05/30/19 11:50 Intake & Output 05/29/19 05/30/19 05/30/19 18:59 06:59 18:59 Intake Total 480 Balance 480 Weight 73.936 kg Intake: Oral 480 Other: Voiding Method Toilet Toilet Toilet # Voids 2 1 1 # Bowel Movements 1 - Exam General: [non toxic], [no distress], [appears at stated age] Derm: [warm], [dry] Head: [atraumatic], [normocephalic], [symmetric] Eyes: [EOMI], [no lid lag], [anicteric sclera] Mouth: [no lip lesion], [mucus membranes moist] Cardiovascular: [S1S2 reg], [no murmur], [positive posterior tibial pulse bilateral], Lungs: [diminished bilateral], [no rhonchi, no rales] , [no accessory muscle use] Abdominal: [soft], [ nontender to palpation], [no guarding], [no appreciable o rganomegaly] Ext: [no gross muscle atrophy], [no edema], [no contractures] Neuro: [ CN II-XI grossly intact], [no focal neuro deficits] Psych: [Alert], [oriented], [appropriate affect] - Labs CBC & Chem 7: 05/30/19 11:56 05/30/19 06:30 Labs: Abnormal Lab Results - Last 24 Hours (Table) 05/30/19 05/30/19 05/30/19 Range/Units 06:30 06:30 11:56 RBC 3.72 L (3.80-5.40) m/uL Hgb 8.6 L 9.0 L (11.4-16.0) gm/dL Hct 28.3 L 29.3 L (34.0-46.0) % MCV 76.1 L D 75.4 L (80.0-100.0) fL MCH 23.1 L 23.0 L (25.0-35.0) pg MCHC 30.4 L 30.5 L (31.0-37.0) g/dL RDW 17.4 H 18.2 H (11.5-15.5) % Lymphocytes # 0.4 L (1.0-4.8) k/uL Sodium 134 L (137-145) mmol/L BUN 27 H (7-17) mg/dL Glucose 143 H (74-99) mg/dL Calcium 8.2 L (8.4-10.2) mg/dL Alkaline Phosphatase 190 H (38-126) U/L Lactate Dehydrogenase 1363 H (313-618) U/L Total Protein 5.5 L (6.3-8.2) g/dL Albumin 2.9 L (3.5-5.0) g/dL Assessment and Plan Plan: Acute respiratory disease secondary to COVID 19 pneumonia Repeat CXR in the AM Patient is now on 4 L nasal cannula Essential hypertension uncontrolled Increase lisinopril to 20mg po BID Sepsis improving Secondary to Covid 19 and urinary tract infection Appreciate ID recommendations Abx per ID Diarrhea likely caused by IV Abx resolved slow IV hydration Elevated troponin suspect secondary to Covid 19 Echocardiogram showed a preserved LVEF of 55-60%, moderately dilated left atrium, mild to moderate MR, moderate to severe PAH Intractable nausea and abdominal pain suspect secondary to Covid Hip tumor Continue [place]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
[2019-05-30] MEDS: lisinopriL 20 MG TAB PO SCH (19:58)
[2019-05-30] MEDS: methylPREDNISolone SOD SUCCI 40 MG/ML 1 ML VIAL IV SCH (23:51)
[2019-05-31] MEDS: ONDANSETRON 4 MG/2 ML VIAL IVP PRN ×2 (01:37→09:31)
[2019-05-31] MEDS: HYDROcodone/APAP 10-325MG 1 EACH TAB PO PRN (01:38)
[2019-05-31 07:06] LABS: Anisocytosis Slight; Basophils % (A) 0 %; Eosinophils % (A) 0 %; HCT 30.5 % (34.0-46.0); HGB 9.3 gm/dL (11.4-16.0); Hypochromasia Marked; Lymphocytes # (A) 0.5 k/uL (1.0-4.8); Lymphocytes % (A) 8 %; MCH 23.3 pg (25.0-35.0); MCHC 30.4 g/dL (31.0-37.0); MCV 76.5 fL (80.0-100.0); Mean Platelet Volume 9.8; Microcytosis Slight; Monocytes # (A) 0.2 k/uL (0-1.0); Monocytes % (A) 2 %; Neutrophils # (A) 5.7 k/uL (1.3-7.7); Neutrophils % (A) 88 %; Platelet Count 285 k/uL (150-450); Poikilocytosis Moderate; RBC 3.99 m/uL (3.80-5.40); RDW 17.3 % (11.5-15.5); WBC 6.5 k/uL (3.8-10.6)
[2019-05-31 07:07] LABS: ALT 12 U/L (4-34); AST 18 U/L (14-36); African American GFR (CKD) >90 (>60 ml/min/1.73 sqM); Albumin 2.8 g/dL (3.5-5.0); Alkaline Phosphatase 223 U/L (38-126); Anion Gap 6 mmol/L; Blood Urea Nitrogen 25 mg/dL (7-17); Calcium 8.5 mg/dL (8.4-10.2); Carbon Dioxide 25 mmol/L (22-30); Chloride 106 mmol/L (98-107); Glucose 147 mg/dL (74-99); LDH 1491 U/L (313-618); Non-African American GFR(CKD) 83 (>60 ml/min/1.73 sqM); Potassium 4.7 mmol/L (3.5-5.1); Sodium 137 mmol/L (137-145); Total Bilirubin 0.4 mg/dL (0.2-1.3); Total Protein 5.4 g/dL (6.3-8.2)
[2019-05-31] MEDS: ASPIRIN 81 MG PO SCH (08:00)
[2019-05-31] MEDS: FERROUS SULFATE 325 MG TAB PO SCH ×2 (08:00→17:43)
[2019-05-31] MEDS: PANTOPRAZOLE 40 MG TABLET PO SCH (08:00)
[2019-05-31] MEDS: lisinopriL 20 MG TAB PO SCH ×3 (08:02→21:06)
[2019-05-31] MEDS: HYDROXYCHLOROQUINE SULFATE 200 MG TAB PO SCH (08:02)
[2019-05-31] MEDS: methylPREDNISolone SOD SUCCI 40 MG/ML 1 ML VIAL IV SCH ×2 (08:02→20:44)
[2019-05-31] MEDS: HEPARIN SODIUM,PORCINE 5,000 UNIT/ML 1 ML VIAL SQ SCH ×2 (08:02→20:44)
[2019-05-31] MEDS: METOPROLOL TARTRATE 25 MG TAB PO SCH ×3 (08:02→21:01)
[2019-05-31] MEDS: ZINC SULFATE 220 MG CAP PO SCH (08:03)
[2019-05-31] MEDS: PARoxetine 10 MG TAB PO SCH (08:41)
[2019-05-31] MEDS: AZITHROMYCIN 250 MG TAB PO SCH (08:41)
--- NOTE | 2019-05-31 08:56 | PN ---
PROGRESS NOTE DATE OF SERVICE: 05/30/2019 REASON FOR FOLLOWUP: Acute COVID-19 pneumonia. INTERVAL HISTORY: The patient is currently afebrile. She has been breathing slightly comfortably. Denies having any chest pain or cough. No nausea, no vomiting. No abdominal pain or diarrhea. The patient is requiring high-flow oxygen this afternoon. PHYSICAL EXAMINATION: Blood pressure 172/74 with a pulse of 92, temperature 98.2. She is 93% on 8 L high- flow oxygen. General description is an elderly female, lying in bed in no distress. RESPIRATORY SYSTEM: Unlabored breathing, decreased breath sounds at bases, no wheeze. HEART: S1, S2. Regular rate and rhythm. ABDOMEN: Soft, no tenderness. LABS: Hemoglobin is 9, white count of 5.2, BUN of 27, creatinine of 0.57. DIAGNOSTIC IMPRESSION AND PLAN: Patient with acute COVID-19 infection in this patient requiring high-flow oxygen. We will add supplemental oxygen, supplemental steroids, Hep-Lock the IV fluid to keep the patient in negative fluid balance and monitor clinical course closely. KURTL / IJN: [id number] /
--- NOTE | 2019-05-31 09:28 | XR ---
EXAMINATION TYPE: XR chest 1V DATE OF EXAM: 05/31/2019 COMPARISON: 05/28/2019 HISTORY: COVID. Follow-up for pneumonia. TECHNIQUE: Single frontal view of the chest is obtained. FINDINGS: Progressive worsening of the multifocal interstitial and alveolar opacities most pronounce d in the right midlung with relative sparing of the lung apices. Cardiomediastinal silhouette is part ially obscured but appears mildly enlarged. No acute osseous process. No sizable pneumothorax or pleu ral effusion. IMPRESSION: Progressive worsening of the known multifocal COVID 19 related pneumonia/lung injury mo st confluent in the right midlung.
[2019-05-31 11:28] LABS: ABG Base Excess -1.2 mmol/L; ABG HCO3 23 mmol/L (21-25); ABG PCO2 36 mmHg (35-45); ABG PH 7.42 (7.35-7.45); ABG TCO2 24 mmol/L (19-24); Allen Test Performed? Yes
[2019-05-31 11:34] LABS: ABG PO2 57 mmHg (83-108)
--- NOTE | 2019-05-31 12:21 | P.CNPUL ---
History of Present Illness Consult date: 05/31/19 Requesting physician: Chapo Potts Reason for consult: dyspnea, pneumonia, abnormal CXR/CT Chief complaint: Dyspnea, acute hypoxemic respiratory failure, Covid 19 pneumonia History of present illness: 78-year-old white female patient with past medical history of hypertension, depression, ex-smoker, who presented to the emergency department on 05/26/2019 for evaluation of nausea for 4 days. Patient has only been able to consume liquids, and has been having vomiting with solid food. She denied fevers, denied cough, denied any chest or abdominal pain, denied any shortness of breath. She was feeling weak, fatigued. Patient was recently diagnosed with a large soft tissue mass involving the posterior right hip that was biopsied a week ago and she is awaiting results. Chest x-ray showed mild peribronchial cuffing, on the basis of possible reactive airway disease, but no focal airspace opacity, pleural effusion with pneumothorax on initial chest x-ray on 05/26/2019. White blood cell count was 5.7, hemoglobin is 10.0, lymphocyte count was 0.5, sodium is 134, potassium is 4.5, chloride is 98, CO2 is 26, B1 is 22, creatinine 0.7, plasma lactic acid was less than 0.5, ferritin was elevated at 524, LDH 1047, troponins were elevated with the first one at 0.418, and trended down to 0.19, pro-calcitonin was 0.39, patient was found to have a urinary tract infection with urine cultures positive for E. coli, she was started on, a Rocephin and Zithromax, her COVID 19 was positive. She was started on Plaquenil and IV steroids, however gradually her oxygenation continued to worsen, and today on 05/31/2019 patient is on 8 L of oxygen, with marginal O2 saturations, she feels very fatigued and weak, and dyspneic. She did have one episode of low-grade fever today, her follow-up blood work showed white blood cell count of 6.5, hemoglobin 9.3, electrolytes are within normal limits, B1 of 25, creatinine 0.71, LDH continuously trending up to 1491. Follow-up chest x-ray today shows a worsening of the known multifocal COVID 19 related pneumonia, most confluent in the right midlung. Patient is dyspnea, her O2 saturations have worsen, blood gas was obtained, showing pO2 57, pCO2 36, pH of 7.42 this was done and FiO2 of 60%. Patient is being transferred to the intensive care unit with orders for intubation and placement on mechanical ventilator by anesthesia services. Review of Systems All systems: negative Constitutional: Denies chills, Denies fever Eyes: denies blurred vision, denies pain Ears, nose, mouth and throat: Denies headache, Denies sore throat Cardiovascular: Denies chest pain, Denies shortness of breath Respiratory: Reports dyspnea, Denies cough Gastrointestinal: Reports nausea, Reports vomiting, Denies abdominal pain, Denies diarrhea Genitourinary: Denies dysuria, Denies hematuria Musculoskeletal: Denies myalgias Integumentary: Denies pruritus, Denies rash Neurological: Denies numbness, Denies weakness Psychiatric: Denies anxiety, Denies depression Endocrine: Denies fatigue, Denies weight change 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 History of Any Multi-Drug Resistant Organisms: None Reported Past Surgical History: Cholecystectomy, Hysterectomy, Orthopedic Surgery Additional Past Surgical History / Comment(s): bowel suspension,throat polyp removed,adhesions removed,lt shoulder Past Anesthesia/Blood Transfusion Reactions: No Reported Reaction Past Psychological History: Depression Smoking Status: Former smoker Past Alcohol Use History: Occasional Past Drug Use History: None Reported - Past Family History Father Additional Family Medical History / Comment(s): pancreatic CA Mother Additional Family Medical History / Comment(s): Colon CA Medications and Allergies Home Medications Medication Instructions Recorded Confirmed Type Fosinopril [Monopril] 10 mg PO HS 05/26/19 05/26/19 History PARoxetine HCL [Paxil] 10 mg PO DAILY 05/26/19 05/26/19 History Allergies Allergy/AdvReac Type Severity Reaction Status Date / Time No Known Allergies Allergy Verified 05/26/19 15:42 Physical Exam Vitals: Vital Signs Temp Pulse Pulse Resp BP Pulse Ox 05/31/19 11:10 86 L 05/31/19 11:00 97.3 F L 82 31 H 157/77 80 L 05/31/19 08:00 98.3 F 91 22 164/79 94 L 05/31/19 06:10 94 L 05/31/19 04:06 99 F 87 14 130/72 90 L 05/31/19 01:45 92 L 05/30/19 23:43 98.2 F 78 14 130/64 98 05/30/19 22:18 93 L 05/30/19 19:31 98.2 F 92 14 172/74 93 L 05/30/19 16:55 97.9 F 78 16 141/65 90 L Intake and Output 05/30/19 05/31/19 05/31/19 22:59 06:59 14:59 Intake Total 240 100 318 Output Total 400 110 Balance 240 -300 208 Intake: Oral 240 100 318 Output: Urine 400 110 Straight 400 Other: Voiding Method Toilet # Voids 1 1 # Bowel Movements 2 GENERAL EXAM: Alert, 78-year-old white female, on 8 L per high flow nasal cannula with a pulse ox of 91%, dyspneic comfortable in no apparent distress. HEAD: Normocephalic/atraumatic. EYES: Normal reaction of pupils, equal size. Conjunctiva pink, sclera white. NOSE: Clear with pink turbinates. THROAT: No erythema or exudates. NECK: No masses, no JVD, no thyroid enlargement, no adenopathy. CHEST: No chest wall deformity. Symmetrical expansion. LUNGS: Equal air entry with crackles in bilateral lungs CVS: Regular rate and rhythm, normal S1 and S2, no gallops, no murmurs, no rubs ABDOMEN: Soft, nontender. No hepatosplenomegaly, normal bowel sounds, no guarding or rigidity. EXTREMITIES: No clubbing, no edema, no cyanosis, 2+ pulses and upper and lower extremities. MUSCULOSKELETAL: Muscle strength and tone normal. SPINE: No scoliosis or deformity SKIN: No rashes CENTRAL NERVOUS SYSTEM: Alert and oriented -3. No focal deficits, tone is normal in all 4 extremities. PSYCHIATRIC: Alert and oriented -3. Appropriate affect. Intact judgment and insight. Results - Laboratory Findings CBC and BMP: 05/31/19 06:01 05/31/19 06:01 ABG ABG pH 7.42 (7.35-7.45) 05/31/19 11:18 ABG pCO2 36 mmHg (35-45) 05/31/19 11:18 ABG pO2 57 mmHg (83-108) L* 05/31/19 11:18 ABG O2 Saturation 89.0 % (94-97) L 05/31/19 11:18 PT/INR, D-dimer PT 11.0 sec (9.0-12.0) 05/26/19 13:29 INR 1.1 (<1.2) 05/26/19 13:29 Abnormal lab findings: Abnormal Labs 05/26/19 05/26/19 05/26/19 13:29 13:29 13:29 WBC RBC Hgb 10.0 L Hct 31.8 L MCV 75.4 L D MCH 23.7 L MCHC RDW 18.3 H Lymphocytes # 0.5 L Lymphocytes # (Manual) Metamyelocytes # (Man) Myelocytes # (Manual) Nucleated RBCs APTT ABG pO2 ABG O2 Saturation Sodium 134 L BUN 22 H Glucose 118 H Plasma Lactic Acid Mike Calcium Iron % Saturation Ferritin Alkaline Phosphatase 219 H Lactate Dehydrogenase Troponin I 0.418 H* Total Protein Albumin HDL Cholesterol Procalcitonin Urine Appearance Urine Protein Ur Leukocyte Esterase Urine WBC Urine Bacteria Hyaline Casts Urine Mucus Coronavirus (PCR) 05/26/19 05/26/19 05/26/19 13:56 17:37 20:37 WBC RBC Hgb Hct MCV MCH MCHC RDW Lymphocytes # Lymphocytes # (Manual) Metamyelocytes # (Man) Myelocytes # (Manual) Nucleated RBCs APTT 52.7 H ABG pO2 ABG O2 Saturation Sodium BUN Glucose Plasma Lactic Acid Mike Calcium Iron % Saturation Ferritin Alkaline Phosphatase Lactate Dehydrogenase Troponin I Total Protein Albumin HDL Cholesterol Procalcitonin Urine Appearance Turbid H Urine Protein 1+ H Ur Leukocyte Esterase Moderate H Urine WBC 12 H Urine Bacteria Rare H Hyaline Casts 3 H Urine Mucus Occasional H Coronavirus (PCR) Detected H 05/26/19 05/26/19 05/26/19 20:37 20:37 20:37 WBC RBC Hgb Hct MCV MCH MCHC RDW Lymphocytes # Lymphocytes # (Manual) Metamyelocytes # (Man) Myelocytes # (Manual) Nucleated RBCs APTT ABG pO2 ABG O2 Saturation Sodium BUN Glucose Plasma Lactic Acid Mike Calcium Iron 9 L % Saturation 3.83 L Ferritin 524.4 H Alkaline Phosphatase Lactate Dehydrogenase 1047 H Troponin I 0.195 H* Total Protein Albumin HDL Cholesterol Procalcitonin 0.39 H Urine Appearance Urine Protein Ur Leukocyte Esterase Urine WBC Urine Bacteria Hyaline Casts Urine Mucus Coronavirus (PCR) 05/27/19 05/27/19 05/27/19 01:18 01:18 07:21 WBC RBC Hgb 9.1 L Hct 29.6 L MCV 76.3 L MCH 23.5 L MCHC 30.8 L RDW 18.2 H Lymphocytes # 0.6 L Lymphocytes # (Manual) Metamyelocytes # (Man) Myelocytes # (Manual) Nucleated RBCs APTT ABG pO2 ABG O2 Saturation Sodium BUN Glucose Plasma Lactic Acid Mike <0.5 L Calcium Iron % Saturation Ferritin Alkaline Phosphatase Lactate Dehydrogenase Troponin I 0.190 H* Total Protein Albumin HDL Cholesterol Procalcitonin Urine Appearance Urine Protein Ur Leukocyte Esterase Urine WBC Urine Bacteria Hyaline Casts Urine Mucus Coronavirus (PCR) 05/27/19 05/27/19 05/27/19 07:21 07:21 07:21 WBC RBC Hgb Hct MCV MCH MCHC RDW Lymphocytes # Lymphocytes # (Manual) Metamyelocytes # (Man) Myelocytes # (Manual) Nucleated RBCs APTT 45.3 H ABG pO2 ABG O2 Saturation Sodium 134 L BUN 20 H Glucose Plasma Lactic Acid Mike Calcium Iron % Saturation Ferritin Alkaline Phosphatase Lactate Dehydrogenase Troponin I Total Protein Albumin HDL Cholesterol 26 L Procalcitonin Urine Appearance Urine Protein Ur Leukocyte Esterase Urine WBC Urine Bacteria Hyaline Casts Urine Mucus Coronavirus (PCR) 05/29/19 05/29/19 05/30/19 05:57 06:28 06:30 WBC 3.6 L RBC 3.72 L Hgb 9.3 L 10.0 L 8.6 L Hct 30.0 L 28.3 L MCV 75.2 L 76.1 L D MCH 23.4 L 23.5 L 23.1 L MCHC 28.6 L 30.4 L RDW 18.2 H 17.9 H 17.4 H Lymphocytes # 0.4 L Lymphocytes # (Manual) 0.29 L 0.61 L Metamyelocytes # (Man) 0.04 H 0.10 H Myelocytes # (Manual) 0.04 H 0.10 H Nucleated RBCs 1 H APTT ABG pO2 ABG O2 Saturation Sodium BUN Glucose Plasma Lactic Acid Mike Calcium Iron % Saturation Ferritin Alkaline Phosphatase Lactate Dehydrogenase Troponin I Total Protein Albumin HDL Cholesterol Procalcitonin Urine Appearance Urine Protein Ur Leukocyte Esterase Urine WBC Urine Bacteria Hyaline Casts Urine Mucus Coronavirus (PCR) 05/30/19 05/30/19 05/31/19 06:30 11:56 06:01 WBC RBC Hgb 9.0 L 9.3 L Hct 29.3 L 30.5 L MCV 75.4 L 76.5 L MCH 23.0 L 23.3 L MCHC 30.5 L 30.4 L RDW 18.2 H 17.3 H Lymphocytes # 0.5 L Lymphocytes # (Manual) Metamyelocytes # (Man) Myelocytes # (Manual) Nucleated RBCs APTT ABG pO2 ABG O2 Saturation Sodium 134 L BUN 27 H Glucose 143 H Plasma Lactic Acid Mike Calcium 8.2 L Iron % Saturation Ferritin Alkaline Phosphatase 190 H Lactate Dehydrogenase 1363 H Troponin I Total Protein 5.5 L Albumin 2.9 L HDL Cholesterol Procalcitonin Urine Appearance Urine Protein Ur Leukocyte Esterase Urine WBC Urine Bacteria Hyaline Casts Urine Mucus Coronavirus (PCR) 05/31/19 05/31/19 06:01 11:18 WBC RBC Hgb Hct MCV MCH MCHC RDW Lymphocytes # Lymphocytes # (Manual) Metamyelocytes # (Man) Myelocytes # (Manual) Nucleated RBCs APTT ABG pO2 57 L* ABG O2 Saturation 89.0 L Sodium BUN 25 H Glucose 147 H Plasma Lactic Acid Mike Calcium Iron % Saturation Ferritin Alkaline Phosphatase 223 H Lactate Dehydrogenase 1491 H Troponin I Total Protein 5.4 L Albumin 2.8 L HDL Cholesterol Procalcitonin Urine Appearance Urine Protein Ur Leukocyte Esterase Urine WBC Urine Bacteria Hyaline Casts Urine Mucus Coronavirus (PCR) - Diagnostic Findings Chest x-ray: report reviewed, image reviewed Additional studies: Echocardiogram reviewed Assessment and Plan Plan: Assessment: #1. Acute hypoxemic respiratory failure related to acute COVID 19 related pneumonia, today's chest x-ray on 05/31/2019 showed progressive worsening of the multifocal interstitial and alveolar opacities most pronounced in the right midlung #2. Nausea and vomiting, shortness of breath, diaphoresis and fatigue present on admission related to the above #3. Elevated LDH, ferritin related to COVID 19 infection #4. Elevated troponins #5. Acute urinary tract infection, related to E. coli #6. History of hypertension #7. Depression #8. Recent history of large soft tissue mass involving the posterior right hip status post biopsy, results are pending #9. Ex-smoker Plan: Blood gases have been reviewed, patient is having progressive dyspnea, and progressive hypoxemic respiratory failure. Today's chest x-ray shows a worsening of multifocal interstitial and alveolar opacities, we'll transfer the patient to the intensive care unit and patient will be intubated and placed on mechanical ventilator. Continue with current antibiotics including Rocephin and Zithromax, Plaquenil, and IV Solu-Medrol. Follow-up chest x-ray in the morning, follow-up labs including LDH, ferritin, CRP, and d-dimer. We'll continue to closely follow I performed a history & physical examination of the patient and discussed their management with my nurse practitioner, Hue Rodriguez. I reviewed the nurse practitioner's note and agree with the documented findings and plan of care. Lung sounds are positive for diminished breath sounds. The findings and the impression was discussed with the patient. I attest to the documentation by the nurse practitioner. Time with Patient: Greater than 30
--- NOTE | 2019-05-31 13:25 | XR ---
EXAMINATION TYPE: XR chest 1V portable DATE OF EXAM: 05/31/2019 Comparison: 05/31/2019 Clinical History: 78-year-old female tube placement Findings: ET tube tip 2.2 cm from the aung. NG tube courses below the diaphragm. Heart mildly enlarged. Multi focal patchy and confluent airspace opacity bilaterally, right greater than left. There is slight int erval worsening particularly at the left base. Calcified granuloma left upper lobe. No sizable effusi on. Impression: Continued multifocal airspace disease, right greater than left, with slight interval worsening at the left lower lobe.
--- NOTE | 2019-05-31 13:26 | XR ---
EXAMINATION TYPE: XR abdomen 1V DATE OF EXAM: 05/31/2019 Comparison: None Clinical History: 78-year-old female OG tube placement Findings: OG tube courses below the diaphragm and is looped within the stomach. Cholecystectomy clips. Nonspeci fic bowel gas pattern with some air filled, nondilated small bowel loops in the pelvis. Limited colon ic air. No significant stool burden. Impression: 1. OG tube appears in place. 2. Nonspecific, overall nonobstructive bowel gas pattern.
[2019-05-31] MEDS ORDERED: CISATRACURIUM 2 MG/ML 5 ML VIAL IV ONE (13:29)
[2019-05-31 13:36] LABS: ABG Base Excess -2.8 mmol/L; ABG HCO3 23 mmol/L (21-25); ABG Oxygen Saturation 96.3 % (94-97); ABG PCO2 45 mmHg (35-45); ABG PH 7.32 (7.35-7.45); ABG PO2 90 mmHg (83-108); ABG TCO2 25 mmol/L (19-24); Allen Test Performed? Yes
[2019-05-31] MEDS: fentaNYL (PF) 1,000 MCG in SODIUM CHLORIDE 0.9% 80 ML IV SCH ×2 (13:47→22:39)
[2019-05-31] MEDS: CISATRACURIUM 200 MG in SODIUM CHLORIDE 0.9% 180 ML IV SCH (13:53)
[2019-05-31 13:59] LABS: ALT 12 U/L (4-34); AST 18 U/L (14-36); African American GFR (CKD) >90 (>60 ml/min/1.73 sqM); Albumin 2.7 g/dL (3.5-5.0); Alkaline Phosphatase 227 U/L (38-126); Anion Gap 7 mmol/L; Blood Urea Nitrogen 25 mg/dL (7-17); Calcium 8.1 mg/dL (8.4-10.2); Carbon Dioxide 23 mmol/L (22-30); Chloride 106 mmol/L (98-107); Glucose 153 mg/dL (74-99); Magnesium 1.8 mg/dL (1.6-2.3); Non-African American GFR(CKD) 87 (>60 ml/min/1.73 sqM); Sodium 136 mmol/L (137-145); Total Bilirubin 0.3 mg/dL (0.2-1.3); Total Protein 5.2 g/dL (6.3-8.2)
[2019-05-31 14:10] LABS: Anisocytosis Slight; HCT 28.5 % (34.0-46.0); HGB 8.7 gm/dL (11.4-16.0); Hypochromasia Marked; MCH 23.3 pg (25.0-35.0); MCHC 30.4 g/dL (31.0-37.0); MCV 76.6 fL (80.0-100.0); Mean Platelet Volume 10.4; Microcytosis Slight; Platelet Count 287 k/uL (150-450); Poikilocytosis Moderate; RBC 3.72 m/uL (3.80-5.40); RDW 17.3 % (11.5-15.5); WBC 7.6 k/uL (3.8-10.6)
[2019-05-31] MEDS ORDERED: SODIUM BICARB 8.4% 50 ML SYR (1 MEQ/ML) IV STA (14:12)
[2019-05-31 14:31] LABS: Band Neutrophils % 2 %; Basophils # (M) 0.08 k/uL (0-0.2); Lymphocytes # (M) 0.46 k/uL (1.0-4.8); Metamyelocytes # (M) 0.08 k/uL (0); Metamyelocytes % 1 %; Monocytes # (M) 0.08 k/uL (0-1.0); Myelocytes # (M) 0.15 k/uL (0); Myelocytes % 2 %; Neutrophils % (M) 89 %; Nucleated Red Blood Cells 0 /100 WBC (0-0); Total Cells Counted 200
[2019-05-31 14:32] LABS: Tear Drop Cells Present
--- NOTE | 2019-05-31 16:24 | P.PN ---
Subjective Progress Note Date: 05/31/19 Principal diagnosis: COVID pneumonia Patient was seen early this morning. Reports from nursing that patient was feeling dyspneic. Went from 8 L nasal cannula to 15 L high flow. Patient complains of shortness of breath which is profound and worsening since admission. She denies any chest pain or palpitations. Initially, patient was DNR/DNI but now agreeable for intubation. I had a long conversation with her regarding the utility of chest compressions if her heart was to stop. Patient was agreeable for no chest compressions. CODE STATUS was changed and ICU pulmonology was consulted. Patient was moved to the ICU and intubated. Objective - Vital Signs Vital signs: Vital Signs Temp 97.3 F L 05/31/19 11:00 Pulse 82 05/31/19 11:00 Resp 31 H 05/31/19 11:00 BP 157/77 05/31/19 11:00 Pulse Ox 86 L 05/31/19 11:10 Intake & Output 05/30/19 05/31/19 05/31/19 18:59 06:59 18:59 Intake Total 240 100 318 Output Total 400 110 Balance 240 -300 208 Intake: Oral 240 100 318 Output: Urine 400 110 Straight 400 Other: Voiding Method Toilet # Voids 1 1 # Bowel Movements 2 - Exam General: [non toxic], [severe distress dyspneic on 8 L NC distress], [appears at stated age] Derm: [warm], [dry] Head: [atraumatic], [normocephalic], [symmetric] Eyes: [EOMI], [no lid lag], [anicteric sclera] Mouth: [no lip lesion], [mucus membranes moist] Cardiovascular: [S1S2 reg], [no murmur], [positive posterior tibial pulse bilateral], Lungs: [Decreased breath sounds bilateral with crackles at the bases], [no rhonchi, no rales] , [no accessory muscle use] Abdominal: [soft], [ nontender to palpation], [no guarding], [no appreciable organomegaly] Ext: [no gross muscle atrophy], [no edema], [no contractures] Neuro: [no focal neuro deficits] Psych: [Alert], [oriented], [appropriate affect] - Labs CBC & Chem 7: 05/31/19 13:25 05/31/19 13:25 Labs: Abnormal Lab Results - Last 24 Hours (Table) 05/31/19 05/31/19 05/31/19 Range/Units 06:01 06:01 11:18 RBC (3.80-5.40) m/uL Hgb 9.3 L (11.4-16.0) gm/dL Hct 30.5 L (34.0-46.0) % MCV 76.5 L (80.0-100.0) fL MCH 23.3 L (25.0-35.0) pg MCHC 30.4 L (31.0-37.0) g/dL RDW 17.3 H (11.5-15.5) % Lymphocytes # 0.5 L (1.0-4.8) k/uL Lymphocytes # (Manual) (1.0-4.8) k/uL Metamyelocytes # (Man) (0) k/uL Myelocytes # (Manual) (0) k/uL ABG pH (7.35-7.45) ABG pO2 57 L* (83-108) mmHg ABG Total CO2 (19-24) mmol/L ABG O2 Saturation 89.0 L (94-97) % Sodium (137-145) mmol/L BUN 25 H (7-17) mg/dL Glucose 147 H (74-99) mg/dL Calcium (8.4-10.2) mg/dL Alkaline Phosphatase 223 H (38-126) U/L Lactate Dehydrogenase 1491 H (313-618) U/L Total Protein 5.4 L (6.3-8.2) g/dL Albumin 2.8 L (3.5-5.0) g/dL 05/31/19 05/31/19 05/31/19 Range/Units 13:25 13:25 13:27 RBC 3.72 L (3.80-5.40) m/uL Hgb 8.7 L (11.4-16.0) gm/dL Hct 28.5 L (34.0-46.0) % MCV 76.6 L (80.0-100.0) fL MCH 23.3 L (25.0-35.0) pg MCHC 30.4 L (31.0-37.0) g/dL RDW 17.3 H (11.5-15.5) % Lymphocytes # (1.0-4.8) k/uL Lymphocytes # (Manual) 0.46 L (1.0-4.8) k/uL Metamyelocytes # (Man) 0.08 H (0) k/uL Myelocytes # (Manual) 0.15 H (0) k/uL ABG pH 7.32 L (7.35-7.45) ABG pO2 (83-108) mmHg ABG Total CO2 25 H (19-24) mmol/L ABG O2 Saturation (94-97) % Sodium 136 L (137-145) mmol/L BUN 25 H (7-17) mg/dL Glucose 153 H (74-99) mg/dL Calcium 8.1 L (8.4-10.2) mg/dL Alkaline Phosphatase 227 H (38-126) U/L Lactate Dehydrogenase (313-618) U/L Total Protein 5.2 L (6.3-8.2) g/dL Albumin 2.7 L (3.5-5.0) g/dL Assessment and Plan Assessment: Acute hypoxic respiratory failure secondary to COVID 19 pneumonia Sepsis likely due to Covid in 19 along with UTI Hypertension Elevated troponin likely demand ischemia Hip tumor ABG was obtained which showed hypoxia with low O2. Patient was electively intubated. Plans: She is currently continued on Rocephin and azithromycin for concerns of community-acquired pneumonia. Hydroxychloroquine has been started for Covid infection. Ventilator management by pulmonology. Plans to repeat chest x-ray tomorrow morning. Follow d-dimer, ferritin, LDH, CRP. Infectious disease following. Plans: Management as above. BP 140/55. Plans: Continue lisinopril and metoprolol. Monitor vitals, adjust medications as necessary. Her troponins are flat. Troponin 0.4.8, 0.195, 0.190. Likely demand ischemia from sepsis. Echocardiogram with no wall motion abnormalities. Plans: Cardiology evaluated, nothing further to do. Plans: Adequate pain management. [Patient admitted for hypoxic respiratory failure secondary to COVID 19. Her respiratory status has worsened and she was intubated today. CODE STATUS was discussed with the patient and she was okay with intubation but does not want any chest compressions. CODE STATUS was changed in EMR. She is pending clinical improvement. Prognosis is extremely guarded at this time.]
[2019-05-31] MEDS ORDERED: NALOXONE 0.4 MG/ML 1 ML VIAL IV PRN (16:27)
--- NOTE | 2019-05-31 16:27 | XR ---
EXAMINATION TYPE: XR chest 1V portable DATE OF EXAM: 05/31/2019 COMPARISON: May 31, 2019 HISTORY: SOB, Follow Up FINDINGS: Endotracheal and NG tubes are unchanged in position. Interval placement of left subclavian central ve nous line with its distal tip overlying the SVC. No evidence for sizable pneumothorax. Bilateral interstitial and alveolar infiltrates persist with slight improved aeration noted at the le ft lung base. Stable appearance of the cardio-mediastinal structures at this time. IMPRESSION: 1. Bilateral interstitial and alveolar infiltrates persist with slight improved aeration noted at th e left lung base. 2. Central venous line as discussed.
--- NOTE | 2019-05-31 16:56 | OP ---
OPERATIVE REPORT OPERATIVE PROCEDURE: Placement of a left subclavian triple-lumen catheter. PREOPERATIVE DIAGNOSIS: Acute hypoxic respiratory failure and pneumonitis. POSTOPERATIVE DIAGNOSIS: Acute hypoxic respiratory failure and pneumonitis. ANESTHESIA USED: 2 mL of 1% lidocaine. PROCEDURE DESCRIPTION: Patient was placed in the Trendelenburg position. The area of the left subclavian region was prepared in a sterile fashion and drapes were applied. The area in the left subclavian area was anesthetized locally with lidocaine. Then the left subclavian vein was easily cannulated, and a guidewire was placed. The area around the guidewire was dilated. Then a triple-lumen catheter was inserted over the guidewire, and the guidewire was removed. Good blood flow was noted in the 3 different ports of the triple-lumen catheter. There was no evidence of any complications. Chest x-ray showed adequate placement and no evidence of pneumothorax. MMODL / IJN: [id number] /
--- NOTE | 2019-05-31 16:56 | OP ---
OPERATIVE REPORT OPERATIVE PROCEDURE: Placement of a left radial arterial line. PREOPERATIVE DIAGNOSIS: Acute hypoxic respiratory failure. POSTOPERATIVE DIAGNOSIS: Acute hypoxic respiratory failure. ANESTHESIA USED: None deployed. PROCEDURE DESCRIPTION: The left wrist was prepared in a sterile fashion and drapes were applied. The left radial artery was palpated, cannulated, and a guidewire was placed. A Cook's catheter was inserted over the guidewire, and the guidewire was removed. Good blood flow and good waveform noted. No evidence of any immediate complication. The line was secured using 3.0 silk sutures. MMODL / IJN: [id number] /
[2019-05-31 18:35] LABS: Glucose,Whole Blood 155 mg/dL (75-99)
[2019-05-31] MEDS: INSULIN ASPART (NovoLOG) 100 UNIT/ML VIAL SQ SCH (18:39)
[2019-05-31] MEDS: CHLORHEXIDINE GLUCONATE 15 ML CUP MUCOUS MEM SCH (20:44)
[2019-05-31] MEDS ORDERED: HYDROXYCHLOROQUINE ORAL SUSP 200 MG/8 ML ORAL.SYRG PO SCH (21:00)
--- NOTE | 2019-05-31 23:22 | PN ---
PROGRESS NOTE DATE OF SERVICE: 05/31/2019 REASON FOR FOLLOWUP: Acute COVID-19 pneumonia. INTERVAL HISTORY: The patient did go into respiratory distress and ended up getting transferred to the ICU. Subsequently she has been intubated. The patient is currently sedated on the vent. FiO2 is currently stable on 40%. She is hemodynamically stable, not requiring any pressor support. No significant purulent secretion in the ET. No diarrhea has been reported. PHYSICAL EXAMINATION: Blood pressure is 121/47, pulse of 53, temperature 97.5. She is 96% on 40% FiO2. General description is an elderly female lying in bed in no distress. RESPIRATORY SYSTEM: Unlabored breathing with decreased breath sounds at the base. No wheeze. HEART: S1, S2. Regular rate and rhythm. ABDOMEN: Soft. No tenderness. LABS: Hemoglobin 8.7, white count 7.6 with a BUN of 25, creatinine 0.6. Electrolytes have been normal. DIAGNOSTIC IMPRESSION AND PLAN: 1. Patient with acute respiratory failure which is likely multifactorial in this patient who has a component of acute COVID-19 pneumonia. Patient is currently covered with Plaquenil and low-dose steroids; to continue along with respiratory support. 2. Patient with Escherichia coli urinary tract infection, covered with Rocephin. Monitor clinical course closely. MMODL / IJN: [id number] /
[2019-05-31 23:51] LABS: Glucose,Whole Blood 157 mg/dL (75-99)
[2019-06-01] MEDS: INSULIN ASPART (NovoLOG) 100 UNIT/ML VIAL SQ SCH ×4 (00:07→18:56)
[2019-06-01] MEDS ORDERED: SODIUM CHLORIDE 0.9% 500 ML 500 ML IV ONE ×2 (00:30→12:22)
[2019-06-01] MEDS ORDERED: FUROSEMIDE 10 MG/ML 4 ML VIAL IV STA (01:17)
[2019-06-01 05:46] LABS: ALT 11 U/L (4-34); AST 15 U/L (14-36); African American GFR (CKD) >90 (>60 ml/min/1.73 sqM); Albumin 2.5 g/dL (3.5-5.0); Alkaline Phosphatase 194 U/L (38-126); Anion Gap 7 mmol/L; Blood Urea Nitrogen 27 mg/dL (7-17); C Reactive Protein 79.3 mg/L (<10.0); Calcium 8.3 mg/dL (8.4-10.2); Carbon Dioxide 24 mmol/L (22-30); Chloride 107 mmol/L (98-107); Glucose 143 mg/dL (74-99); LDH 1277 U/L (313-618); Non-African American GFR(CKD) 89 (>60 ml/min/1.73 sqM); Potassium 3.5 mmol/L (3.5-5.1); Sodium 138 mmol/L (137-145); Total Bilirubin 0.3 mg/dL (0.2-1.3); Total Protein 4.9 g/dL (6.3-8.2)
[2019-06-01 05:51] LABS: Anisocytosis Slight; Basophils % (A) 0 %; Eosinophils % (A) 0 %; HCT 26.6 % (34.0-46.0); HGB 8.2 gm/dL (11.4-16.0); Hypochromasia Moderate; Lymphocytes # (A) 0.5 k/uL (1.0-4.8); Lymphocytes % (A) 10 %; MCH 23.1 pg (25.0-35.0); MCHC 30.8 g/dL (31.0-37.0); MCV 74.8 fL (80.0-100.0); Mean Platelet Volume 10.8; Microcytosis Moderate; Monocytes # (A) 0.1 k/uL (0-1.0); Monocytes % (A) 3 %; Neutrophils # (A) 3.9 k/uL (1.3-7.7); Neutrophils % (A) 86 %; Platelet Count 227 k/uL (150-450); Poikilocytosis Moderate; RBC 3.56 m/uL (3.80-5.40); RDW 17.7 % (11.5-15.5); WBC 4.6 k/uL (3.8-10.6)
[2019-06-01] MEDS ORDERED: Potassium Replacement Protocol 1 EACH MISC MISCELLANE PRN (05:51)
[2019-06-01] MEDS: FERROUS SULFATE 325 MG TAB PO SCH ×2 (05:55→18:00)
[2019-06-01 05:56] LABS: Glucose,Whole Blood 177 mg/dL (75-99)
[2019-06-01] MEDS: POTASSIUM BICARBONATE/CIT AC 20 MEQ TABLET.EFF NG-TUBE SCH ×2 (06:07→08:24)
[2019-06-01] MEDS: CISATRACURIUM 200 MG in SODIUM CHLORIDE 0.9% 180 ML IV SCH (06:12)
[2019-06-01 06:15] LABS: ABG Base Excess -0.5 mmol/L; ABG HCO3 24 mmol/L (21-25); ABG Oxygen Saturation 97.6 % (94-97); ABG PCO2 36 mmHg (35-45); ABG PH 7.43 (7.35-7.45); ABG PO2 93 mmHg (83-108); ABG TCO2 25 mmol/L (19-24)
[2019-06-01 06:16] LABS: Allen Test Performed? no
--- NOTE | 2019-06-01 08:10 | XR ---
EXAMINATION TYPE: XR chest 1V portable DATE OF EXAM: 06/01/2019 Comparison: 05/31/2019 Clinical History: 78 year-old female tube placement Findings: ET and NG tubes are satisfactory. Left subclavian CVC tip at the cavoatrial junction. Heart upper moore its of normal in size. Interstitial and patchy airspace opacities, right greater than left are overal l unchanged. No sizable effusion. Small calcified granulomas on the left. Impression: Interstitial and patchy airspace opacities, right greater than left, overall unchanged.
[2019-06-01] MEDS: lisinopriL 20 MG TAB PO SCH ×2 (08:25→20:39)
[2019-06-01] MEDS: ASPIRIN 81 MG PO SCH (08:25)
[2019-06-01] MEDS: HEPARIN SODIUM,PORCINE 5,000 UNIT/ML 1 ML VIAL SQ SCH ×2 (08:25→20:39)
[2019-06-01] MEDS: PARoxetine 10 MG TAB PO SCH (08:25)
[2019-06-01] MEDS: AZITHROMYCIN 250 MG TAB PO SCH (08:25)
[2019-06-01] MEDS: ZINC SULFATE 220 MG CAP PO SCH (08:25)
[2019-06-01] MEDS: methylPREDNISolone SOD SUCCI 40 MG/ML 1 ML VIAL IV SCH ×2 (08:26→20:39)
[2019-06-01] MEDS: CHLORHEXIDINE GLUCONATE 15 ML CUP MUCOUS MEM SCH ×2 (08:26→20:39)
[2019-06-01] MEDS: PANTOPRAZOLE 40 MG/10 ML VIAL IVP SCH (08:26)
[2019-06-01] MEDS: ARTIFICIAL TEARS-HYPROMELLOSE DROPS 15 ML BTL BOTH EYES SCH ×4 (08:27→20:56)
[2019-06-01] MEDS: METOPROLOL TARTRATE 25 MG TAB PO SCH ×2 (08:27→20:39)
[2019-06-01] MEDS: fentaNYL (PF) 1,000 MCG in SODIUM CHLORIDE 0.9% 80 ML IV SCH ×3 (08:34→20:32)
[2019-06-01 11:34] LABS: Ferritin 952.3 ng/mL (10.0-291.0)
[2019-06-01] MEDS: SODIUM CHLORIDE 0.9% 1,000 ML IV SCH (12:31)
[2019-06-01 12:51] LABS: Glucose,Whole Blood 150 mg/dL (75-99)
--- NOTE | 2019-06-01 13:16 | P.PN ---
Subjective Progress Note Date: 06/01/19 Principal diagnosis: Acute hypoxic respiratory failure secondary to covid 19 pneumonitis 78-year-old white female patient with past medical history of hypertension, depression, ex-smoker, who presented to the emergency department on 05/26/2019 for evaluation of nausea for 4 days. Patient has only been able to consume liquids, and has been having vomiting with solid food. She denied fevers, denied cough, denied any chest or abdominal pain, denied any shortness of breath. She was feeling weak, fatigued. Patient was recently diagnosed with a large soft tissue mass involving the posterior right hip that was biopsied a week ago and she is awaiting results. Chest x-ray showed mild peribronchial cuffing, on the basis of possible reactive airway disease, but no focal airspace opacity, pleural effusion with pneumothorax on initial chest x-ray on 05/26/2019. White blood cell count was 5.7, hemoglobin is 10.0, lymphocyte count was 0.5, sodium is 134, potassium is 4.5, chloride is 98, CO2 is 26, B1 is 22, creatinine 0.7, plasma lactic acid was less than 0.5, ferritin was elevated at 524, LDH 1047, troponins were elevated with the first one at 0.418, and trended down to 0.19, pro-calcitonin was 0.39, patient was found to have a urinary tract infection with urine cultures positive for E. coli, she was started on, a Rocephin and Zithromax, her COVID 19 was positive. She was started on Plaquenil and IV steroids, however gradually her oxygenation continued to worsen, and today on 05/31/2019 patient is on 8 L of oxygen, with marginal O2 saturations, she feels very fatigued and weak, and dyspneic. She did have one episode of low-grade fever today, her follow-up blood work showed white blood cell count of 6.5, hemoglobin 9.3, electrolytes are within normal limits, B1 of 25, creatinine 0.71, LDH continuously trending up to 1491. Follow-up chest x-ray today shows a worsening of the known multifocal COVID 19 related pneumonia, most confluent in the right midlung. Patient is dyspnea, her O2 saturations have worsen, blood gas was obtained, showing pO2 57, pCO2 36, pH of 7.42 this was done and FiO2 of 60%. Patient is being transferred to the intensive care unit with orders for intubation and placement on mechanical ventilator by anesthesia services. Patient was reevaluated today on 06/01/19, remains in the unit, patient was intubated and mechanically ventilated yesterday. Her present vent settings are tidal volume is 400 assist control rate is 28 FiO2 is 40% and PEEP is at 12. Her peak airway pressure is 28 and plateau pressures 24. Patient is on fentanyl at 1.5 mcg/kg/h she is also on propofol 50 mcg/kg/m, Nimbex, and IV fluid of 0.9 normal saline at 75 mL per hour. Patient is on tube feeding. Had issues with her urine output yesterday, responded to fluid bolus followed by Lasix. Urine output is about 20-30 mL/h at present. Chest x-ray showed bilateral interstitial airspace disease. Slightly better compared to the one before intubation. ABG showed a pO2 of 93 pCO2 of 36 pH of 7.43. WBC count is 4.6 hemoglobin is 8.2 platelets are 227. Basic metabolic profile is normal. Ferritin however is 952 LDH is 1277 C-reactive protein is 79 d-dimer is 1.01 patient is sedated and paralyzed on mechanical ventilation Objective - Vital Signs Vital signs: Vital Signs Temp 97.7 F 06/01/19 08:00 Pulse 49 L 06/01/19 11:00 Resp 27 H 06/01/19 11:00 BP 111/57 06/01/19 10:00 Pulse Ox 97 06/01/19 11:00 Intake & Output 05/31/19 06/01/19 06/01/19 18:59 06:59 18:59 Intake Total 772.595 6085.265 942.896 Output Total 335 1015 145 Balance 417.647 989.265 797.896 Weight 73.936 kg Intake: IV 381 1436 390 Sodium Chloride 0.9% 1, 375 525 150 000 ml @ 75 mls/hr IV . [id number] [facility] Rx#:[id number] Sodium Chloride 0.9% 500 875 ml 500 ml @ 999 mls/hr IV .Q31M [facility] Rx#:[id number] ns 225 pressure bag 6 36 15 Intake, IV Titration 43.647 338.265 422.896 Amount Cisatracurium 200 mg In 118.293 39.628 Sodium Chloride 0.9% 180 ml @ 1 MCG/KG/MIN 4.436 mls/hr IV .Q24H [facility] Rx#: [id number] Propofol 1,000 mg In 25.285 138.334 188.908 Empty Bag 1 bag @ Titrate IV .Q0M [facility] Rx#: [id number] cefTRIAXone 1 gm In 50 Sodium Chloride 0.9% 50 ml @ 100 mls/hr IVPB Q24HR [facility] Rx#:[id number] fentaNYL (PF) 1,000 mcg 18.362 81.638 144.36 In Sodium Chloride 0.9% 80 ml @ 1 MCG/KG/HR 7.394 mls/hr IV .[id number] [facility] Rx#:[id number] Oral 318 Tube Feeding 10 140 40 Other 90 90 Output: Urine 335 1015 145 Other: Voiding Method Indwelling Catheter Indwelling Catheter Indwelling Catheter # Voids 1 ABP, PAP, CO, CI - Last Documented Arterial Blood Pressure 133/54 - Exam GENERAL EXAM: Alert, 78-year-old white female, on mechanical ventilation, sedated and paralyzed. Head: Atraumatic, normocephalic. Endotracheal tube and orogastric tube are intact. HEENT: PERRLA, EOMI, no icterus. Left subclavian line is noted. Moist mucous membranes. CHEST: No chest wall deformity. Symmetrical expansion. LUNGS: Fine crackles at the bases bilaterally. No rhonchi no wheezes. CVS: Regular rate and rhythm, normal S1 and S2, no gallops, no murmurs, no rubs ABDOMEN: Soft, nontender. No hepatosplenomegaly, normal bowel sounds, no guarding or rigidity. EXTREMITIES: No clubbing, no edema, no cyanosis, 2+ pulses and upper and lower extremities. MUSCULOSKELETAL: Muscle strength and tone normal. SPINE: No scoliosis or deformity SKIN: No rashes CENTRAL NERVOUS SYSTEM: Cannot be assessed, patient is sedated and paralyzed. PSYCHIATRIC: Cannot be assessed. - Labs CBC & Chem 7: 06/01/19 05:20 06/01/19 05:20 Labs: Abnormal Lab Results - Last 24 Hours (Table) 05/31/19 05/31/19 05/31/19 Range/Units 13:25 13:25 13:27 RBC 3.72 L (3.80-5.40) m/uL Hgb 8.7 L (11.4-16.0) gm/dL Hct 28.5 L (34.0-46.0) % MCV 76.6 L (80.0-100.0) fL MCH 23.3 L (25.0-35.0) pg MCHC 30.4 L (31.0-37.0) g/dL RDW 17.3 H (11.5-15.5) % Lymphocytes # (1.0-4.8) k/uL Lymphocytes # (Manual) 0.46 L (1.0-4.8) k/uL Metamyelocytes # (Man) 0.08 H (0) k/uL Myelocytes # (Manual) 0.15 H (0) k/uL D-Dimer (<0.60) mg/L FEU ABG pH 7.32 L (7.35-7.45) ABG Total CO2 25 H (19-24) mmol/L ABG O2 Saturation (94-97) % Sodium 136 L (137-145) mmol/L BUN 25 H (7-17) mg/dL Glucose 153 H (74-99) mg/dL POC Glucose (mg/dL) (75-99) mg/dL Calcium 8.1 L (8.4-10.2) mg/dL Ferritin (10.0-291.0) ng/mL Alkaline Phosphatase 227 H (38-126) U/L Lactate Dehydrogenase (313-618) U/L C-Reactive Protein (<10.0) mg/L Total Protein 5.2 L (6.3-8.2) g/dL Albumin 2.7 L (3.5-5.0) g/dL 05/31/19 05/31/19 06/01/19 Range/Units 18:34 23:50 05:20 RBC (3.80-5.40) m/uL Hgb (11.4-16.0) gm/dL Hct (34.0-46.0) % MCV (80.0-100.0) fL MCH (25.0-35.0) pg MCHC (31.0-37.0) g/dL RDW (11.5-15.5) % Lymphocytes # (1.0-4.8) k/uL Lymphocytes # (Manual) (1.0-4.8) k/uL Metamyelocytes # (Man) (0) k/uL Myelocytes # (Manual) (0) k/uL D-Dimer 1.01 H (<0.60) mg/L FEU ABG pH (7.35-7.45) ABG Total CO2 (19-24) mmol/L ABG O2 Saturation (94-97) % Sodium (137-145) mmol/L BUN (7-17) mg/dL Glucose (74-99) mg/dL POC Glucose (mg/dL) 155 H 157 H (75-99) mg/dL Calcium (8.4-10.2) mg/dL Ferritin (10.0-291.0) ng/mL Alkaline Phosphatase (38-126) U/L Lactate Dehydrogenase (313-618) U/L C-Reactive Protein (<10.0) mg/L Total Protein (6.3-8.2) g/dL Albumin (3.5-5.0) g/dL 06/01/19 06/01/19 06/01/19 Range/Units 05:20 05:20 05:55 RBC 3.56 L (3.80-5.40) m/uL Hgb 8.2 L (11.4-16.0) gm/dL Hct 26.6 L (34.0-46.0) % MCV 74.8 L (80.0-100.0) fL MCH 23.1 L (25.0-35.0) pg MCHC 30.8 L (31.0-37.0) g/dL RDW 17.7 H (11.5-15.5) % Lymphocytes # 0.5 L (1.0-4.8) k/uL Lymphocytes # (Manual) (1.0-4.8) k/uL Metamyelocytes # (Man) (0) k/uL Myelocytes # (Manual) (0) k/uL D-Dimer (<0.60) mg/L FEU ABG pH (7.35-7.45) ABG Total CO2 (19-24) mmol/L ABG O2 Saturation (94-97) % Sodium (137-145) mmol/L BUN 27 H (7-17) mg/dL Glucose 143 H (74-99) mg/dL POC Glucose (mg/dL) 177 H (75-99) mg/dL Calcium 8.3 L (8.4-10.2) mg/dL Ferritin 952.3 H (10.0-291.0) ng/mL Alkaline Phosphatase 194 H (38-126) U/L Lactate Dehydrogenase 1277 H (313-618) U/L C-Reactive Protein 79.3 H (<10.0) mg/L Total Protein 4.9 L (6.3-8.2) g/dL Albumin 2.5 L (3.5-5.0) g/dL 06/01/19 06/01/19 Range/Units 06:09 12:49 RBC (3.80-5.40) m/uL Hgb (11.4-16.0) gm/dL Hct (34.0-46.0) % MCV (80.0-100.0) fL MCH (25.0-35.0) pg MCHC (31.0-37.0) g/dL RDW (11.5-15.5) % Lymphocytes # (1.0-4.8) k/uL Lymphocytes # (Manual) (1.0-4.8) k/uL Metamyelocytes # (Man) (0) k/uL Myelocytes # (Manual) (0) k/uL D-Dimer (<0.60) mg/L FEU ABG pH (7.35-7.45) ABG Total CO2 25 H (19-24) mmol/L ABG O2 Saturation 97.6 H (94-97) % Sodium (137-145) mmol/L BUN (7-17) mg/dL Glucose (74-99) mg/dL POC Glucose (mg/dL) 150 H (75-99) mg/dL Calcium (8.4-10.2) mg/dL Ferritin (10.0-291.0) ng/mL Alkaline Phosphatase (38-126) U/L Lactate Dehydrogenase (313-618) U/L C-Reactive Protein (<10.0) mg/L Total Protein (6.3-8.2) g/dL Albumin (3.5-5.0) g/dL Assessment and Plan Assessment: #1. Acute hypoxemic respiratory failure related to acute COVID 19 related p neumonia, requiring intubation and mechanical ventilation. #2. Nausea and vomiting, shortness of breath, diaphoresis and fatigue present on admission related to the above #3. Elevated LDH, ferritin related to COVID 19 infection #4. Elevated troponins #5. Acute urinary tract infection, related to E. coli #6. History of hypertension #7. Depression #8. Recent history of large soft tissue mass involving the posterior right hip status post biopsy, results are pending #9. Ex-smoker Recommendation: Continue ventilatory support. Continue nutritional support. Continue GI and DVT prophylaxis. Continue antibiotics and hydroxychloroquine. As well as IV Solu-Medrol. Continue to monitor inflammatory markers for covid 19 pneumonitis. Consider stopping Nimbex and continue fentanyl and propofol if tolerated. No plans for any weaning trials at this point, Prognosis is definitely guarded. Patient is critically ill. Critical care time is 30 5. Time with Patient: Greater than 30
--- NOTE | 2019-06-01 16:31 | P.PN ---
Subjective Progress Note Date: 06/01/19 Principal diagnosis: COVID pneumonia Patient was seen early this morning. Intubated yesterday for respiratory failure. Tidal volume 400. Rate of 28. FiO2 is 40%. PEEP is 12. Currently receiving tube feeds. Nursing reports no acute events. Objective - Vital Signs Vital signs: Vital Signs Temp 98.2 F 06/01/19 16:00 Pulse 54 L 06/01/19 16:00 Resp 28 H 06/01/19 16:00 BP 125/59 06/01/19 16:00 Pulse Ox 97 06/01/19 16:00 Intake & Output 05/31/19 06/01/19 06/01/19 18:59 06:59 18:59 Intake Total 482.578 9974.265 1992.896 Output Total 335 1015 260 Balance 417.647 116.669 6589.896 Weight 73.936 kg Intake: IV 381 1436 405 Sodium Chloride 0.9% 1, 375 525 150 000 ml @ 75 mls/hr IV . [id number] [facility] Rx#:[id number] Sodium Chloride 0.9% 500 875 ml 500 ml @ 999 mls/hr IV .Q31M [facility] Rx#:[id number] ns 225 pressure bag 6 36 30 Intake, IV Titration 43.647 194.213 9227.896 Amount Cisatracurium 200 mg In 118.293 39.628 Sodium Chloride 0.9% 180 ml @ 1 MCG/KG/MIN 4.436 mls/hr IV .Q24H [facility] Rx#: [id number] Propofol 1,000 mg In 25.285 138.334 188.908 Empty Bag 1 bag @ Titrate IV .Q0M [facility] Rx#: [id number] Sodium Chloride 0.9% 1, 375 000 ml @ 75 mls/hr IV . [id number] [facility] Rx#:[id number] Sodium Chloride 0.9% 500 500 ml 500 ml @ 999 mls/hr IV .Q31M [facility] Rx#:[id number] cefTRIAXone 1 gm In 50 Sodium Chloride 0.9% 50 ml @ 100 mls/hr IVPB Q24HR [facility] Rx#:[id number] fentaNYL (PF) 1,000 mcg 18.362 81.638 144.36 In Sodium Chloride 0.9% 80 ml @ 1 MCG/KG/HR 7.394 mls/hr IV .[id number] [facility] Rx#:[id number] Oral 318 Tube Feeding 10 140 140 Other 90 150 Output: Urine 335 1015 260 Other: Voiding Method Indwelling Catheter Indwelling Catheter Indwelling Catheter # Voids 1 ABP, PAP, CO, CI - Last Documented Arterial Blood Pressure 111/47 - Exam General: [non toxic], [intubated], [appears at stated age] Derm: [warm], [dry] Head: [atraumatic], [normocephalic], [symmetric] Eyes: [EOMI], [no lid lag], [anicteric sclera] Mouth: [no lip lesion], [mucus membranes moist] Cardiovascular: [S1S2 reg], [no murmur], [positive DP pulse bilateral], Lungs: [Coarse breath sounds bilaterally], [no rhonchi, no rales] , [no accessory muscle use] Abdominal: [soft], [ nontender to palpation], [no guarding], [no appreciable organomegaly] Ext: [no gross muscle atrophy], [no edema], [no contractures] Neuro: [no focal neuro deficits] Psych: [Alert], [oriented], [appropriate affect] - Labs CBC & Chem 7: 06/01/19 05:20 06/01/19 05:20 Labs: Abnormal Lab Results - Last 24 Hours (Table) 05/31/19 05/31/19 06/01/19 Range/Units 18:34 23:50 05:20 RBC (3.80-5.40) m/uL Hgb (11.4-16.0) gm/dL Hct (34.0-46.0) % MCV (80.0-100.0) fL MCH (25.0-35.0) pg MCHC (31.0-37.0) g/dL RDW (11.5-15.5) % Lymphocytes # (1.0-4.8) k/uL D-Dimer 1.01 H (<0.60) mg/L FEU ABG Total CO2 (19-24) mmol/L ABG O2 Saturation (94-97) % BUN (7-17) mg/dL Glucose (74-99) mg/dL POC Glucose (mg/dL) 155 H 157 H (75-99) mg/dL Calcium (8.4-10.2) mg/dL Ferritin (10.0-291.0) ng/mL Alkaline Phosphatase (38-126) U/L Lactate Dehydrogenase (313-618) U/L C-Reactive Protein (<10.0) mg/L Total Protein (6.3-8.2) g/dL Albumin (3.5-5.0) g/dL 06/01/19 06/01/19 06/01/19 Range/Units 05:20 05:20 05:55 RBC 3.56 L (3.80-5.40) m/uL Hgb 8.2 L (11.4-16.0) gm/dL Hct 26.6 L (34.0-46.0) % MCV 74.8 L (80.0-100.0) fL MCH 23.1 L (25.0-35.0) pg MCHC 30.8 L (31.0-37.0) g/dL RDW 17.7 H (11.5-15.5) % Lymphocytes # 0.5 L (1.0-4.8) k/uL D-Dimer (<0.60) mg/L FEU ABG Total CO2 (19-24) mmol/L ABG O2 Saturation (94-97) % BUN 27 H (7-17) mg/dL Glucose 143 H (74-99) mg/dL POC Glucose (mg/dL) 177 H (75-99) mg/dL Calcium 8.3 L (8.4-10.2) mg/dL Ferritin 952.3 H (10.0-291.0) ng/mL Alkaline Phosphatase 194 H (38-126) U/L Lactate Dehydrogenase 1277 H (313-618) U/L C-Reactive Protein 79.3 H (<10.0) mg/L Total Protein 4.9 L (6.3-8.2) g/dL Albumin 2.5 L (3.5-5.0) g/dL 06/01/19 06/01/19 Range/Units 06:09 12:49 RBC (3.80-5.40) m/uL Hgb (11.4-16.0) gm/dL Hct (34.0-46.0) % MCV (80.0-100.0) fL MCH (25.0-35.0) pg MCHC (31.0-37.0) g/dL RDW (11.5-15.5) % Lymphocytes # (1.0-4.8) k/uL D-Dimer (<0.60) mg/L FEU ABG Total CO2 25 H (19-24) mmol/L ABG O2 Saturation 97.6 H (94-97) % BUN (7-17) mg/dL Glucose (74-99) mg/dL POC Glucose (mg/dL) 150 H (75-99) mg/dL Calcium (8.4-10.2) mg/dL Ferritin (10.0-291.0) ng/mL Alkaline Phosphatase (38-126) U/L Lactate Dehydrogenase (313-618) U/L C-Reactive Protein (<10.0) mg/L Total Protein (6.3-8.2) g/dL Albumin (3.5-5.0) g/dL Assessment and Plan Assessment: Acute hypoxic respiratory failure secondary to COVID 19 pneumonia Sepsis likely due to Covid in 19 along with UTI Hypertension Elevated troponin likely demand ischemia Hip tumor Patient was electively intubated. Plans: She is currently continued on Rocephin and azithromycin for concerns of community-acquired pneumonia. Completed course of hydroxychloroquine for Covid infection. Ventilator management by pulmonology. Plans to repeat chest x-ray tomorrow morning. Follow d-dimer, ferritin, LDH, CRP. Infectious disease following. Plans: Management as above. BP 125/59. Plans: Continue lisinopril and metoprolol. Monitor vitals, adjust medications as necessary. Her troponins are flat. Troponin 0.48, 0.195, 0.190. Likely demand ischemia from sepsis. Echocardiogram with no wall motion abnormalities. Plans: Cardiology evaluated, nothing further to do. Plans: Adequate pain management. [Patient intubated. Stable. Pulmonology on board. Infectious disease foll owing. She is pending clinical improvement. Prognosis is guarded.]
[2019-06-01 18:10] LABS: Glucose,Whole Blood 154 mg/dL (75-99)
[2019-06-01] MEDS: HYDROXYCHLOROQUINE ORAL SUSP 200 MG/8 ML ORAL.SYRG PO SCH (20:39)
--- NOTE | 2019-06-01 22:11 | PN ---
PROGRESS NOTE DATE OF SERVICE: 06/01/2019 REASON FOR FOLLOWUP: Acute COVID-19 pneumonia. INTERVAL HISTORY: The patient is currently afebrile. The patient is hemodynamically stable. FiO2 is currently at 40%. She is not requiring any pressor support. No significant purulent secretion through the ET and no diarrhea has been reported by the nursing staff. PHYSICAL EXAMINATION: Blood pressure 119/50 with a pulse of 86, temperature 98.3. She is 97% on 40% FiO2. General description is an elderly female lying in bed in no distress. RESPIRATORY SYSTEM: Unlabored breathing. Clear to auscultation anteriorly. HEART: S1, S2. Regular rate and rhythm. ABDOMEN: Soft. No tenderness. LABS: Hemoglobin is 8.2, white count 4.6. BUN of 27, creatinine 0.60. DIAGNOSTIC IMPRESSION AND PLAN: Patient with acute respiratory failure which is likely multifactorial in this patient with a component of acute COVID-19 pneumonia. X-ray did not show any significant change. The patient is covered with Plaquenil, Zithromax and steroid; to continue. Monitor clinical course closely. MMODL / IJN: [id number] /
[2019-06-02] MEDS: ARTIFICIAL TEARS-HYPROMELLOSE DROPS 15 ML BTL BOTH EYES SCH ×6 (00:31→22:16)
[2019-06-02 00:37] LABS: Glucose,Whole Blood 162 mg/dL (75-99)
[2019-06-02] MEDS: INSULIN ASPART (NovoLOG) 100 UNIT/ML VIAL SQ SCH ×4 (00:40→18:28)
[2019-06-02] MEDS: SODIUM CHLORIDE 0.9% 1,000 ML IV SCH ×2 (03:22→16:23)
[2019-06-02 04:17] LABS: Anisocytosis Slight; HCT 27.6 % (34.0-46.0); HGB 8.4 gm/dL (11.4-16.0); Hypochromasia Marked; MCH 23.1 pg (25.0-35.0); MCHC 30.5 g/dL (31.0-37.0); MCV 75.6 fL (80.0-100.0); Mean Platelet Volume 10.5; Microcytosis Moderate; Platelet Count 271 k/uL (150-450); Poikilocytosis Moderate; RBC 3.64 m/uL (3.80-5.40); RDW 17.9 % (11.5-15.5); WBC 7.8 k/uL (3.8-10.6)
[2019-06-02 04:26] LABS: ALT 10 U/L (4-34); AST 12 U/L (14-36); African American GFR (CKD) >90 (>60 ml/min/1.73 sqM); Albumin 2.3 g/dL (3.5-5.0); Alkaline Phosphatase 164 U/L (38-126); Anion Gap 5 mmol/L; Blood Urea Nitrogen 32 mg/dL (7-17); Calcium 8.1 mg/dL (8.4-10.2); Carbon Dioxide 24 mmol/L (22-30); Chloride 108 mmol/L (98-107); Glucose 149 mg/dL (74-99); LDH 1079 U/L (313-618); Non-African American GFR(CKD) 88 (>60 ml/min/1.73 sqM); Sodium 137 mmol/L (137-145); Total Bilirubin 0.2 mg/dL (0.2-1.3); Total Protein 4.7 g/dL (6.3-8.2)
[2019-06-02 05:18] LABS: Lymphocytes # (M) 0.16 k/uL (1.0-4.8); Monocytes # (M) 0.31 k/uL (0-1.0); Neutrophils # (M) 7.33 k/uL (1.3-7.7); Neutrophils % (M) 94 %; Nucleated Red Blood Cells 0 /100 WBC (0-0); Total Cells Counted 100
[2019-06-02 05:19] LABS: Ovalocytes Present; Tear Drop Cells Present
[2019-06-02] MEDS: fentaNYL (PF) 1,000 MCG in SODIUM CHLORIDE 0.9% 80 ML IV SCH ×2 (05:48→14:55)
[2019-06-02 06:00] LABS: Glucose,Whole Blood 143 mg/dL (75-99)
--- NOTE | 2019-06-02 07:22 | XR ---
EXAMINATION TYPE: XR chest 1V portable DATE OF EXAM: 06/02/2019 COMPARISON: 06/01/2019 HISTORY: SOB, Follow Up FINDINGS: Indwelling tubes and catheters are unchanged. Mixed bilateral infiltrates right greater than left persist without significant change. Stable appearance of the cardio-mediastinal structures at this time. Pleural effusion unchanged. IMPRESSION: 1. Mixed bilateral infiltrates right greater than left persist without significant change.
[2019-06-02] MEDS: ALBUTEROL HFA INHALER INHALATION PRN (07:35)
[2019-06-02 07:41] LABS: ABG Base Excess -1.1 mmol/L; ABG HCO3 24 mmol/L (21-25); ABG PCO2 39 mmHg (35-45); ABG PO2 97 mmHg (83-108); ABG TCO2 25 mmol/L (19-24)
[2019-06-02 07:42] LABS: Allen Test Performed? no
[2019-06-02] MEDS ORDERED: FUROSEMIDE 10 MG/ML 2 ML VIAL IV STA (08:39)
[2019-06-02] MEDS: HYDROXYCHLOROQUINE ORAL SUSP 200 MG/8 ML ORAL.SYRG PO SCH ×2 (08:49→20:38)
[2019-06-02] MEDS: FERROUS SULFATE 325 MG TAB PO SCH ×2 (08:50→16:48)
[2019-06-02] MEDS: AZITHROMYCIN 250 MG TAB PO SCH (08:50)
[2019-06-02] MEDS: ASPIRIN 81 MG PO SCH (08:50)
[2019-06-02] MEDS: methylPREDNISolone SOD SUCCI 40 MG/ML 1 ML VIAL IV SCH ×2 (08:50→20:38)
[2019-06-02] MEDS: lisinopriL 20 MG TAB PO SCH ×2 (08:50→20:39)
[2019-06-02] MEDS: ZINC SULFATE 220 MG CAP PO SCH (08:50)
[2019-06-02] MEDS: HEPARIN SODIUM,PORCINE 5,000 UNIT/ML 1 ML VIAL SQ SCH ×2 (08:50→20:38)
[2019-06-02] MEDS: CHLORHEXIDINE GLUCONATE 15 ML CUP MUCOUS MEM SCH ×2 (08:50→20:38)
[2019-06-02] MEDS: PANTOPRAZOLE 40 MG/10 ML VIAL IVP SCH (08:50)
[2019-06-02] MEDS: PARoxetine 10 MG TAB PO SCH (08:51)
[2019-06-02] MEDS: METOPROLOL TARTRATE 25 MG TAB PO SCH ×2 (08:51→19:48)
[2019-06-02 11:10] LABS: Ferritin 766.3 ng/mL (10.0-291.0)
[2019-06-02 11:39] LABS: Glucose,Whole Blood 144 mg/dL (75-99)
[2019-06-02] MEDS: CISATRACURIUM 200 MG in SODIUM CHLORIDE 0.9% 180 ML IV SCH (12:20)
--- NOTE | 2019-06-02 13:41 | P.PN ---
Subjective Progress Note Date: 06/02/19 Principal diagnosis: Acute hypoxic respiratory failure secondary to covid 19 pneumonitis 78-year-old white female patient with past medical history of hypertension, depression, ex-smoker, who presented to the emergency department on 05/26/2019 for evaluation of nausea for 4 days. Patient has only been able to consume liquids, and has been having vomiting with solid food. She denied fevers, denied cough, denied any chest or abdominal pain, denied any shortness of breath. She was feeling weak, fatigued. Patient was recently diagnosed with a large soft tissue mass involving the posterior right hip that was biopsied a week ago and she is awaiting results. Chest x-ray showed mild peribronchial cuffing, on the basis of possible reactive airway disease, but no focal airspace opacity, pleural effusion with pneumothorax on initial chest x-ray on 05/26/2019. White blood cell count was 5.7, hemoglobin is 10.0, lymphocyte count was 0.5, sodium is 134, potassium is 4.5, chloride is 98, CO2 is 26, B1 is 22, creatinine 0.7, plasma lactic acid was less than 0.5, ferritin was elevated at 524, LDH 1047, troponins were elevated with the first one at 0.418, and trended down to 0.19, pro-calcitonin was 0.39, patient was found to have a urinary tract infection with urine cultures positive for E. coli, she was started on, a Rocephin and Zithromax, her COVID 19 was positive. She was started on Plaquenil and IV steroids, however gradually her oxygenation continued to worsen, and today on 05/31/2019 patient is on 8 L of oxygen, with marginal O2 saturations, she feels very fatigued and weak, and dyspneic. She did have one episode of low-grade fever today, her follow-up blood work showed white blood cell count of 6.5, hemoglobin 9.3, electrolytes are within normal limits, B1 of 25, creatinine 0.71, LDH continuously trending up to 1491. Follow-up chest x-ray today shows a worsening of the known multifocal COVID 19 related pneumonia, most confluent in the right midlung. Patient is dyspnea, her O2 saturations have worsen, blood gas was obtained, showing pO2 57, pCO2 36, pH of 7.42 this was done and FiO2 of 60%. Patient is being transferred to the intensive care unit with orders for intubation and placement on mechanical ventilator by anesthesia services. Patient was reevaluated today on 06/01/19, remains in the unit, patient was intubated and mechanically ventilated yesterday. Her present vent settings are tidal volume is 400 assist control rate is 28 FiO2 is 40% and PEEP is at 12. Her peak airway pressure is 28 and plateau pressures 24. Patient is on fentanyl at 1.5 mcg/kg/h she is also on propofol 50 mcg/kg/m, Nimbex, and IV fluid of 0.9 normal saline at 75 mL per hour. Patient is on tube feeding. Had issues with her urine output yesterday, responded to fluid bolus followed by Lasix. Urine output is about 20-30 mL/h at present. Chest x-ray showed bilateral interstitial airspace disease. Slightly better compared to the one before intubation. ABG showed a pO2 of 93 pCO2 of 36 pH of 7.43. WBC count is 4.6 hemoglobin is 8.2 platelets are 227. Basic metabolic profile is normal. Ferritin however is 952 LDH is 1277 C-reactive protein is 79 d-dimer is 1.01 patient is sedated and paralyzed on mechanical ventilation Reevaluated today on 06/02/19, patient remains in the ICU, intubated, mechanically ventilated. Her ventilator settings are assist control rate of 28 tidal volume of 400 FiO2 is 40% PEEP is at 12. Patient is on propofol at 50 mcg/kg/m, she is on fentanyl at 1.5 mcg/kg/m, not requiring any Nimbex, IV fluid 0.9 normal ritu ine at 75 mL per hour. Patient iscovid 19 positive. Patient is on enteral feeding at 50 mL per hour. ABG showed a pO2 of 97 pCO2 of 39 pH of 7.40. CBC is relatively normal except for hemoglobin of 8.4. D-dimer is 1.02. Electrodes are normal renal profile is normal LDH is 1079, C-reactive protein is 35 ferritin is 766. Chest x-ray showed bilateral infiltrates right more so than left, not much of significant change in the last 24 hours, but definitely not worse. It is actually improved compared to her baseline chest x-ray before intubation Objective - Vital Signs Vital signs: Vital Signs Temp 98 F 06/02/19 12:00 Pulse 57 L 06/02/19 12:00 Resp 28 H 06/02/19 12:00 BP 108/50 06/02/19 12:00 Pulse Ox 95 06/02/19 12:00 Intake & Output 06/01/19 06/02/19 06/02/19 18:59 06:59 18:59 Intake Total 2338.896 1091.35 1065.197 Output Total 320 485 585 Balance 2018.896 606.35 480.197 Weight 73.936 kg 73.936 kg Intake: IV 411 69 21 Sodium Chloride 0.9% 1, 150 000 ml @ 75 mls/hr IV . [id number] [facility] Rx#:[id number] ns 225 pressure bag 36 69 21 Intake, IV Titration 1547.896 463.35 618.197 Amount Cisatracurium 200 mg In 39.628 Sodium Chloride 0.9% 180 ml @ 1 MCG/KG/MIN 4.436 mls/hr IV .Q24H [facility] Rx#: [id number] Propofol 1,000 mg In 288.908 200.0 193.197 Empty Bag 1 bag @ Titrate IV .Q0M [facility] Rx#: [id number] Sodium Chloride 0.9% 1, 525 75 375 000 ml @ 75 mls/hr IV . [id number] [facility] Rx#:[id number] Sodium Chloride 0.9% 500 500 ml 500 ml @ 999 mls/hr IV .Q31M [facility] Rx#:[id number] cefTRIAXone 1 gm In 50 50 Sodium Chloride 0.9% 50 ml @ 100 mls/hr IVPB Q24HR [facility] Rx#:[id number] fentaNYL (PF) 1,000 mcg 144.36 188.35 In Sodium Chloride 0.9% 80 ml @ 1 MCG/KG/HR 7.394 mls/hr IV .[id number] [facility] Rx#:[id number] Tube Feeding 200 469 276 Other 180 90 150 Output: Urine 320 485 585 Other: Voiding Method Indwelling Catheter Indwelling Catheter Indwelling Catheter ABP, PAP, CO, CI - Last Documented Arterial Blood Pressure 117/47 - Exam GENERAL EXAM: Alert, 78-year-old white female, on mechanical ventilation, sedated Head: Atraumatic, normocephalic. Endotracheal tube and orogastric tube are intact. HEENT: PERRLA, EOMI, no icterus. Left subclavian line is noted. Moist mucous membranes. CHEST: No chest wall deformity. Symmetrical expansion. LUNGS: Fine crackles at the bases bilaterally. No rhonchi no wheezes. CVS: Regular rate and rhythm, normal S1 and S2, no gallops, no murmurs, no rubs ABDOMEN: Soft, nontender. No hepatosplenomegaly, normal bowel sounds, no guarding or rigidity. EXTREMITIES: No clubbing, no edema, no cyanosis, 2+ pulses and upper and lower extremities. MUSCULOSKELETAL: Muscle strength and tone normal. SPINE: No scoliosis or deformity SKIN: No rashes CENTRAL NERVOUS SYSTEM: Cannot be assessed, patient is sedated and paralyzed. PSYCHIATRIC: Cannot be assessed. - Labs CBC & Chem 7: 06/02/19 04:00 06/02/19 04:00 Labs: Abnormal Lab Results - Last 24 Hours (Table) 06/01/19 06/02/19 06/02/19 Range/Units 18:08 00:36 04:00 RBC (3.80-5.40) m/uL Hgb (11.4-16.0) gm/dL Hct (34.0-46.0) % MCV (80.0-100.0) fL MCH (25.0-35.0) pg MCHC (31.0-37.0) g/dL RDW (11.5-15.5) % Lymphocytes # (Manual) (1.0-4.8) k/uL D-Dimer 1.02 H (<0.60) mg/L FEU ABG Total CO2 (19-24) mmol/L ABG O2 Saturation (94-97) % Chloride (98-107) mmol/L BUN (7-17) mg/dL Glucose (74-99) mg/dL POC Glucose (mg/dL) 154 H 162 H (75-99) mg/dL Calcium (8.4-10.2) mg/dL Ferritin (10.0-291.0) ng/mL AST (14-36) U/L Alkaline Phosphatase (38-126) U/L Lactate Dehydrogenase (313-618) U/L C-Reactive Protein (<10.0) mg/L Total Protein (6.3-8.2) g/dL Albumin (3.5-5.0) g/dL 06/02/19 06/02/19 06/02/19 Range/Units 04:00 04:00 05:58 RBC 3.64 L (3.80-5.40) m/uL Hgb 8.4 L (11.4-16.0) gm/dL Hct 27.6 L (34.0-46.0) % MCV 75.6 L (80.0-100.0) fL MCH 23.1 L (25.0-35.0) pg MCHC 30.5 L (31.0-37.0) g/dL RDW 17.9 H (11.5-15.5) % Lymphocytes # (Manual) 0.16 L (1.0-4.8) k/uL D-Dimer (<0.60) mg/L FEU ABG Total CO2 (19-24) mmol/L ABG O2 Saturation (94-97) % Chloride 108 H (98-107) mmol/L BUN 32 H (7-17) mg/dL Glucose 149 H (74-99) mg/dL POC Glucose (mg/dL) 143 H (75-99) mg/dL Calcium 8.1 L (8.4-10.2) mg/dL Ferritin 766.3 H (10.0-291.0) ng/mL AST 12 L (14-36) U/L Alkaline Phosphatase 164 H (38-126) U/L Lactate Dehydrogenase 1079 H (313-618) U/L C-Reactive Protein 35.0 H (<10.0) mg/L Total Protein 4.7 L (6.3-8.2) g/dL Albumin 2.3 L (3.5-5.0) g/dL 06/02/19 06/02/19 Range/Units 07:35 11:37 RBC (3.80-5.40) m/uL Hgb (11.4-16.0) gm/dL Hct (34.0-46.0) % MCV (80.0-100.0) fL MCH (25.0-35.0) pg MCHC (31.0-37.0) g/dL RDW (11.5-15.5) % Lymphocytes # (Manual) (1.0-4.8) k/uL D-Dimer (<0.60) mg/L FEU ABG Total CO2 25 H (19-24) mmol/L ABG O2 Saturation 98.0 H (94-97) % Chloride (98-107) mmol/L BUN (7-17) mg/dL Glucose (74-99) mg/dL POC Glucose (mg/dL) 144 H (75-99) mg/dL Calcium (8.4-10.2) mg/dL Ferritin (10.0-291.0) ng/mL AST (14-36) U/L Alkaline Phosphatase (38-126) U/L Lactate Dehydrogenase (313-618) U/L C-Reactive Protein (<10.0) mg/L Total Protein (6.3-8.2) g/dL Albumin (3.5-5.0) g/dL Microbiology - Last 24 Hours (Table) 06/02/19 04:00 Sputum Culture - Preliminary Sputum Assessment and Plan Assessment: Acute hypoxemic respiratory failure related to acute COVID 19 related pneumonia, requiring intubation and mechanical ventilation. Acute urinary tract infection, related to E. coli History of hypertension Depression Recent history of large soft tissue mass involving the posterior right hip status post biopsy, results are pending Ex-smoker Recommendation: Continue ventilatory support. Decrease PEEP to 10. Continue FiO2 at 40%. Consider holding sedation including propofol and fentanyl and possibly assess mental status today. Continue nutritional support. Continue GI and DVT prophylaxis. Continue antibiotics and hydroxychloroquine. As well as IV Solu-Medrol. Continue to monitor inflammatory markers for covid 19 pneumonitis. No plans for any weaning trials at this point, Prognosis is definitely guarded. Patient is critically ill. Critical care time is 36 minutes. Time with Patient: Greater than 30
--- NOTE | 2019-06-02 13:45 | CDI ---
Documentation Clarification Form Date: 06/02/2019 CDS: Annette Garvin, CCS, CCDS Admit Date: 05/26/2019 Patient Name: Tia Garcia Discharge Date: ATTENTION: The Clinical Documentation Specialists (CDI) and [facility] Coding Staff appreciate your assistance in clarifying documentation. Please respond to the clarification below the line at the bottom and electronically sign. The CDI & [facility] Coding staff will review the response and follow-up if needed. Please note: Queries are made part of the Legal Health Record. If you have any questions, please contact the author of this message via ITS. Dear Dr. Devaughn Godfrey: Per the ED note on 05/25: Chronic anemia is documented. Per the 05/25 History & Physical: "The patient also has a chronic anemia, will follow-up iron studies and continue to observe closely." The cause or specificity of the patients anemia is not documented. 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 Clinical indicators: Presented to the ED on 05/25 with nausea, omitting, diarrhea x4 days, sweating more than normal, feels weak, not eating. Diagnosed with initially with a NSTEMI (ruled out) & viral bronchitis. After study, diagnosed with Acute hypoxic respiratory failure secondary to COVID 19, Pneumonia, Sepsis & UTI. Hemoglobin: 05/25 Hgb 10.0*; 05/30: 8.6*; 05/31: 8.2; 06/01: 8.4* Hematocrit: 05/25: 31.8*; 05/30: 28.5*; 05/31: 26.6*, 06/01: 27.6* Treatment: 05/25: IV fluid bolus 1,000 mls @ 999/hr, IV Zofran, IV Heparin drip, po ASA, H/H. 05/28: po Feosol 325 mg BID. On 05/29 Transferred to dedicated COVID 19 floor. IV SolumedrolOn 05/30 Transferred to ICU, intubated on vent. NGT. IV Lasix. In order to capture the severity of condition, please clarify the type of anemia and etiology if known:. Chronic blood loss anemia Iron deficiency anemia Drug induced anemia Nutritional anemia Anemia of chronic disease Unable to determine Other, please specify (Last Form Revision: April 2019) unable to determine, has not been worked up MTDD
--- NOTE | 2019-06-02 16:23 | P.PN ---
Subjective Progress Note Date: 06/02/19 Principal diagnosis: COVID pneumonia Patient was seen early this morning. Intubated and sedated on vent. PEEP at 5. Rate of 28. FiO2 40%. Tidal volume 400. Given 1 dose of Lasix today. Tube feeds are started. Sedation holiday attempted today with good results. Otherwise, no other events. Objective - Vital Signs Vital signs: Vital Signs Temp 98 F 06/02/19 12:00 Pulse 57 L 06/02/19 15:00 Resp 28 H 06/02/19 15:00 BP 115/56 06/02/19 15:00 Pulse Ox 97 06/02/19 15:00 Intake & Output 06/01/19 06/02/19 06/02/19 18:59 06:59 18:59 Intake Total 2338.896 1091.35 1498.197 Output Total 320 485 765 Balance 2018.896 606.35 733.197 Weight 73.936 kg 73.936 kg Intake: IV 411 69 30 Sodium Chloride 0.9% 1, 150 000 ml @ 75 mls/hr IV . [id number] [facility] Rx#:[id number] ns 225 pressure bag 36 69 30 Intake, IV Titration 1547.896 463.35 943.197 Amount Cisatracurium 200 mg In 39.628 Sodium Chloride 0.9% 180 ml @ 1 MCG/KG/MIN 4.436 mls/hr IV .Q24H [facility] Rx#: [id number] Propofol 1,000 mg In 288.908 200.0 193.197 Empty Bag 1 bag @ Titrate IV .Q0M [facility] Rx#: [id number] Sodium Chloride 0.9% 1, 525 75 600 000 ml @ 75 mls/hr IV . [id number] [facility] Rx#:[id number] Sodium Chloride 0.9% 500 500 ml 500 ml @ 999 mls/hr IV .Q31M [facility] Rx#:[id number] cefTRIAXone 1 gm In 50 50 Sodium Chloride 0.9% 50 ml @ 100 mls/hr IVPB Q24HR [facility] Rx#:[id number] fentaNYL (PF) 1,000 mcg 144.36 188.35 100 In Sodium Chloride 0.9% 80 ml @ 1 MCG/KG/HR 7.394 mls/hr IV .[id number] [facility] Rx#:[id number] Tube Feeding 200 469 375 Other 180 90 150 Output: Urine 320 613 765 Other: Voiding Method Indwelling Catheter Indwelling Catheter Indwelling Catheter # Bowel Movements 1 ABP, PAP, CO, CI - Last Documented Arterial Blood Pressure 129/48 - Exam General: [non toxic], [intubated], [appears at stated age] Derm: [warm], [dry] Head: [atraumatic], [normocephalic], [symmetric] Eyes: [EOMI], [no lid lag], [anicteric sclera] Mouth: [no lip lesion], [mucus membranes moist] Cardiovascular: [S1S2 reg], [no murmur], [positive DP pulse bilateral], Lungs: [Coarse breath sounds bilaterally], [no rhonchi, no rales] , [no accessory muscle use] Abdominal: [soft], [ nontender to palpation], [no guarding], [no appreciable organomegaly] Ext: [no gross muscle atrophy], [no edema], [no contractures] Neuro: [no focal neuro deficits] Psych: [Alert], [oriented], [appropriate affect] - Labs CBC & Chem 7: 06/02/19 04:00 06/02/19 04:00 Labs: Abnormal Lab Results - Last 24 Hours (Table) 06/01/19 06/02/19 06/02/19 Range/Units 18:08 00:36 04:00 RBC (3.80-5.40) m/uL Hgb (11.4-16.0) gm/dL Hct (34.0-46.0) % MCV (80.0-100.0) fL MCH (25.0-35.0) pg MCHC (31.0-37.0) g/dL RDW (11.5-15.5) % Lymphocytes # (Manual) (1.0-4.8) k/uL D-Dimer 1.02 H (<0.60) mg/L FEU ABG Total CO2 (19-24) mmol/L ABG O2 Saturation (94-97) % Chloride (98-107) mmol/L BUN (7-17) mg/dL Glucose (74-99) mg/dL POC Glucose (mg/dL) 154 H 162 H (75-99) mg/dL Calcium (8.4-10.2) mg/dL Ferritin (10.0-291.0) ng/mL AST (14-36) U/L Alkaline Phosphatase (38-126) U/L Lactate Dehydrogenase (313-618) U/L C-Reactive Protein (<10.0) mg/L Total Protein (6.3-8.2) g/dL Albumin (3.5-5.0) g/dL 06/02/19 06/02/19 06/02/19 Range/Units 04:00 04:00 05:58 RBC 3.64 L (3.80-5.40) m/uL Hgb 8.4 L (11.4-16.0) gm/dL Hct 27.6 L (34.0-46.0) % MCV 75.6 L (80.0-100.0) fL MCH 23.1 L (25.0-35.0) pg MCHC 30.5 L (31.0-37.0) g/dL RDW 17.9 H (11.5-15.5) % Lymphocytes # (Manual) 0.16 L (1.0-4.8) k/uL D-Dimer (<0.60) mg/L FEU ABG Total CO2 (19-24) mmol/L ABG O2 Saturation (94-97) % Chloride 108 H (98-107) mmol/L BUN 32 H (7-17) mg/dL Glucose 149 H (74-99) mg/dL POC Glucose (mg/dL) 143 H (75-99) mg/dL Calcium 8.1 L (8.4-10.2) mg/dL Ferritin 766.3 H (10.0-291.0) ng/mL AST 12 L (14-36) U/L Alkaline Phosphatase 164 H (38-126) U/L Lactate Dehydrogenase 1079 H (313-618) U/L C-Reactive Protein 35.0 H (<10.0) mg/L Total Protein 4.7 L (6.3-8.2) g/dL Albumin 2.3 L (3.5-5.0) g/dL 06/02/19 06/02/19 Range/Units 07:35 11:37 RBC (3.80-5.40) m/uL Hgb (11.4-16.0) gm/dL Hct (34.0-46.0) % MCV (80.0-100.0) fL MCH (25.0-35.0) pg MCHC (31.0-37.0) g/dL RDW (11.5-15.5) % Lymphocytes # (Manual) (1.0-4.8) k/uL D-Dimer (<0.60) mg/L FEU ABG Total CO2 25 H (19-24) mmol/L ABG O2 Saturation 98.0 H (94-97) % Chloride (98-107) mmol/L BUN (7-17) mg/dL Glucose (74-99) mg/dL POC Glucose (mg/dL) 144 H (75-99) mg/dL Calcium (8.4-10.2) mg/dL Ferritin (10.0-291.0) ng/mL AST (14-36) U/L Alkaline Phosphatase (38-126) U/L Lactate Dehydrogenase (313-618) U/L C-Reactive Protein (<10.0) mg/L Total Protein (6.3-8.2) g/dL Albumin (3.5-5.0) g/dL Microbiology - Last 24 Hours (Table) 06/02/19 04:00 Gram Stain - Preliminary Sputum Sputum Culture - Preliminary Assessment and Plan Assessment: Acute hypoxic respiratory failure secondary to COVID 19 pneumonia Sepsis likely due to Covid in 19 along with UTI Hypertension Elevated troponin likely demand ischemia Hip tumor Patient was electively intubated. Plans: She is currently continued on Rocephin and azithromycin for concerns of community-acquired pneumonia. Completed course of hydroxychloroquine for Covid infection. Also on zinc. Ventilator management by pulmonology. Plans to repeat chest x-ray tomorrow morning. Follow d-dimer (slightly elevated), ferritin (decreasing), LDH (decreasing), CRP (decreasing). Infectious disease following. Plans: Management as above. BP 115/56. Plans: Continue lisinopril and metoprolol. Monitor vitals, adjust medications as necessary. Her troponins are flat. Troponin 0.48, 0.195, 0.190. Likely demand ischemia from sepsis. Echocardiogram with no wall motion abnormalities. Plans: Cardiology evaluated, nothing further to do. Plans: Adequate pain management. [Patient intubated. Stable. Pulmonology on board. Infectious disease following. She is pending clinical improvement. Prognosis is guarded.]
--- NOTE | 2019-06-02 17:33 | PN ---
PROGRESS NOTE DATE OF SERVICE: 06/02/2019. REASON FOR FOLLOWUP: Acute COVID-19 pneumonia. INTERVAL HISTORY: The patient is currently afebrile. The patient is hemodynamically stable. The patient remains to be intubated on the vent. FiO2 is currently down to 40%. No significant purulent secretion through the ET and no diarrhea has been reported by the nursing staff. PHYSICAL EXAMINATION: Blood pressure 115/56, pulse of 56, temperature 97.8. She is 98% on 40% FiO2. General description is an elderly female lying in the bed on the vent. RESPIRATORY SYSTEM: Unlabored breathing. Decreased breath sounds at the bases. No wheeze. HEART: S1, S2. Regular rate and rhythm. ABDOMEN: Soft. No tenderness. EXTREMITIES: No edema of the feet. LABS: Hemoglobin 8.4, white count 7.8. BUN of 32, creatinine 0.61. DIAGNOSTIC IMPRESSION AND PLAN: Patient with acute respiratory failure, which is likely multifactorial in this patient who does have a component of acute COVID-19 pneumonia. The patient is currently on Plaquenil, Zithromax, zinc, and Solu-Medrol, to continue along with respiratory support and monitor her clinical course closely. MMODL / IJN: [id number] /
[2019-06-02 18:14] LABS: Glucose,Whole Blood 147 mg/dL (75-99)
[2019-06-03 00:13] LABS: Glucose,Whole Blood 140 mg/dL (75-99)
[2019-06-03] MEDS: INSULIN ASPART (NovoLOG) 100 UNIT/ML VIAL SQ SCH ×4 (00:20→17:11)
[2019-06-03] MEDS: ARTIFICIAL TEARS-HYPROMELLOSE DROPS 15 ML BTL BOTH EYES SCH ×2 (01:17→06:48)
[2019-06-03 05:34] LABS: Anisocytosis Slight; HCT 26.7 % (34.0-46.0); Hypochromasia Marked; MCH 22.9 pg (25.0-35.0); MCHC 30.2 g/dL (31.0-37.0); Mean Platelet Volume 10.6; Microcytosis Slight; Platelet Count 324 k/uL (150-450); Poikilocytosis Moderate; RBC 3.51 m/uL (3.80-5.40); RDW 17.6 % (11.5-15.5)
[2019-06-03 05:47] LABS: ALT 11 U/L (4-34); AST 13 U/L (14-36); African American GFR (CKD) >90 (>60 ml/min/1.73 sqM); Albumin 2.3 g/dL (3.5-5.0); Alkaline Phosphatase 157 U/L (38-126); Anion Gap 5 mmol/L; Blood Urea Nitrogen 35 mg/dL (7-17); C Reactive Protein 26.5 mg/L (<10.0); Calcium 7.8 mg/dL (8.4-10.2); Carbon Dioxide 23 mmol/L (22-30); Chloride 111 mmol/L (98-107); Glucose 143 mg/dL (74-99); LDH 1103 U/L (313-618); Non-African American GFR(CKD) >90 (>60 ml/min/1.73 sqM); Potassium 3.7 mmol/L (3.5-5.1); Sodium 139 mmol/L (137-145); Total Bilirubin 0.2 mg/dL (0.2-1.3); Total Protein 4.6 g/dL (6.3-8.2)
[2019-06-03 06:15] LABS: Glucose,Whole Blood 137 mg/dL (75-99)
[2019-06-03] MEDS: SODIUM CHLORIDE 0.9% 1,000 ML IV SCH ×2 (06:16→16:22)
[2019-06-03 06:20] LABS: Band Neutrophils % 2 %; Lymphocytes # (M) 0.44 k/uL (1.0-4.8); Myelocytes # (M) 0.07 k/uL (0); Myelocytes % 1 %; Neutrophils % (M) 88 %; Nucleated Red Blood Cells 1 /100 WBC (0-0); Total Cells Counted 200
[2019-06-03 06:21] LABS: Monocytes # (M) 0.29 k/uL (0-1.0); Tear Drop Cells Present; WBC 7.3 k/uL (3.8-10.6)
[2019-06-03] MEDS: FERROUS SULFATE 325 MG TAB PO SCH ×2 (06:34→16:22)
[2019-06-03] MEDS: fentaNYL (PF) 1,000 MCG in SODIUM CHLORIDE 0.9% 80 ML IV SCH (06:47)
[2019-06-03] MEDS ORDERED: POTASSIUM BICARBONATE/CIT AC 20 MEQ TABLET.EFF NG-TUBE SCH (07:00)
[2019-06-03 08:03] LABS: ABG Base Excess -2.6 mmol/L; ABG HCO3 22 mmol/L (21-25); ABG Oxygen Saturation 98.2 % (94-97); ABG PCO2 37 mmHg (35-45); ABG PH 7.39 (7.35-7.45); ABG PO2 100 mmHg (83-108); ABG TCO2 23 mmol/L (19-24)
[2019-06-03 08:04] LABS: Allen Test Performed? no
--- NOTE | 2019-06-03 08:08 | XR ---
EXAMINATION TYPE: XR chest 1V portable DATE OF EXAM: 06/03/2019 COMPARISON: 06/02/2019 INDICATION: Tube placement TECHNIQUE: Single frontal view of the chest is obtained. FINDINGS: The heart size is mild the prominent. The pulmonary vasculature is prominent. Diffuse increased lung markings are present greater into the right lower lobe. Small left pleural eff usion may be present. Endotracheal tube tip is above the aung. Nasogastric tube transverses the thorax. Left central veno us catheter is tip in the proximal right atrium. IMPRESSION: 1. Bibasilar infiltrates, stable from comparison. 2. Multiple lines and catheters discussed above.
--- NOTE | 2019-06-03 08:08 | CDI ---
Documentation Clarification Form Date: 06/03/2019 07:52:05 AM From: Annette Garvin CCS, CCDS Admit Date: 05/26/2019 03:33:00 PM Patient Name: Tia Garcia Visit Number: [id number] Discharge Date: ATTENTION: The Clinical Documentation Specialists (CDI) and [facility] Coding Staff appreciate your assistance in clarifying documentation. Please respond to the clarification below the line at the bottom and electronically sign. The CDI & [facility] Coding staff will review the response and follow-up if needed. Please note: Queries are made part of the Legal Health Record. If you have any questions, please contact the author of this message via ITS. Dr. Devaughn Godfrey or Dr. Rajeev Watts: Per the 05/30, 05/31 & 06/01 Attending Progress Notes: "Elevated troponin likely demand ischemia. Likely demand ischemia from sepsis." Per the 05/26 Cardiology Consults: Abnormal troponins, probably unrelated to myocardial injury. Cardiology has not documented again on this patient. Patient History/Risk Factors: Hypertension, Clinical Indicators: Patient presented to the ED on 05/25 with Epigastric abdominal, pain, cough, nausea & retching x4 days. Initially diagnosed with a possible NSTEMI. Diagnosed with COVID-19 related Sepsis, Pneumonia & UTI with Acute hypoxic respiratory failure requiring intubation.. Troponin 05/25: 0.418^^, 0.195^^; 05/26: 0.190^^ EKG Results 05/25: P 89 nsr, T wave abnormality, consider anterior ischemia. Repeat 05/30: P 80 nsr, same impression. Treatment 05/25: IV fluid bolus 1,000 mls@999/hr, IV Zofran, IV Heparin drip, po ASA, 05/26: po Zithromax, po Plaquenil, IV Rocephin, po Zithromax. 05/30: Intubated. In order to capture the severity of condition and necessary documentation specificity, please clarify: Myocardial Infarction ruled out Non-STEMI Myocardial Infarction Type II Unable to determine Other Condition, please specify Last Revision: November 2016) Unable to determine MTDD
[2019-06-03] MEDS: ASPIRIN 81 MG PO SCH (08:37)
[2019-06-03] MEDS: PARoxetine 10 MG TAB PO SCH (08:37)
[2019-06-03] MEDS: ZINC SULFATE 220 MG CAP PO SCH (08:37)
[2019-06-03] MEDS: AZITHROMYCIN 250 MG TAB PO SCH (08:37)
[2019-06-03] MEDS: HEPARIN SODIUM,PORCINE 5,000 UNIT/ML 1 ML VIAL SQ SCH ×2 (08:38→21:00)
[2019-06-03] MEDS: METOPROLOL TARTRATE 25 MG TAB PO SCH ×2 (08:38→21:00)
[2019-06-03] MEDS: HYDROXYCHLOROQUINE ORAL SUSP 200 MG/8 ML ORAL.SYRG PO SCH ×2 (08:38→21:00)
[2019-06-03] MEDS: CHLORHEXIDINE GLUCONATE 15 ML CUP MUCOUS MEM SCH ×2 (08:38→21:00)
[2019-06-03] MEDS: lisinopriL 20 MG TAB PO SCH ×2 (08:38→20:51)
[2019-06-03] MEDS: methylPREDNISolone SOD SUCCI 40 MG/ML 1 ML VIAL IV SCH ×2 (08:38→21:00)
[2019-06-03] MEDS: PANTOPRAZOLE 40 MG/10 ML VIAL IVP SCH (08:39)
[2019-06-03] MEDS ORDERED: FUROSEMIDE 10 MG/ML 2 ML VIAL IV STA (09:09)
[2019-06-03 11:21] LABS: Glucose,Whole Blood 137 mg/dL (75-99)
[2019-06-03 11:33] LABS: Ferritin 519.9 ng/mL (10.0-291.0)
--- NOTE | 2019-06-03 13:39 | P.PN ---
Subjective Progress Note Date: 06/03/19 Principal diagnosis: Acute hypoxic respiratory failure secondary to covid 19 pneumonitis 78-year-old white female patient with past medical history of hypertension, depression, ex-smoker, who presented to the emergency department on 05/26/2019 for evaluation of nausea for 4 days. Patient has only been able to consume liquids, and has been having vomiting with solid food. She denied fevers, denied cough, denied any chest or abdominal pain, denied any shortness of breath. She was feeling weak, fatigued. Patient was recently diagnosed with a large soft tissue mass involving the posterior right hip that was biopsied a week ago and she is awaiting results. Chest x-ray showed mild peribronchial cuffing, on the basis of possible reactive airway disease, but no focal airspace opacity, pleural effusion with pneumothorax on initial chest x-ray on 05/26/2019. White blood cell count was 5.7, hemoglobin is 10.0, lymphocyte count was 0.5, sodium is 134, potassium is 4.5, chloride is 98, CO2 is 26, B1 is 22, creatinine 0.7, plasma lactic acid was less than 0.5, ferritin was elevated at 524, LDH 1047, troponins were elevated with the first one at 0.418, and trended down to 0.19, pro-calcitonin was 0.39, patient was found to have a urinary tract infection with urine cultures positive for E. coli, she was started on, a Rocephin and Zithromax, her COVID 19 was positive. She was started on Plaquenil and IV steroids, however gradually her oxygenation continued to worsen, and today on 05/31/2019 patient is on 8 L of oxygen, with marginal O2 saturations, she feels very fatigued and weak, and dyspneic. She did have one episode of low-grade fever today, her follow-up blood work showed white blood cell count of 6.5, hemoglobin 9.3, electrolytes are within normal limits, B1 of 25, creatinine 0.71, LDH continuously trending up to 1491. Follow-up chest x-ray today shows a worsening of the known multifocal COVID 19 related pneumonia, most confluent in the right midlung. Patient is dyspnea, her O2 saturations have worsen, blood gas was obtained, showing pO2 57, pCO2 36, pH of 7.42 this was done and FiO2 of 60%. Patient is being transferred to the intensive care unit with orders for intubation and placement on mechanical ventilator by anesthesia services. Patient was reevaluated today on 06/01/19, remains in the unit, patient was intubated and mechanically ventilated yesterday. Her present vent settings are tidal volume is 400 assist control rate is 28 FiO2 is 40% and PEEP is at 12. Her peak airway pressure is 28 and plateau pressures 24. Patient is on fentanyl at 1.5 mcg/kg/h she is also on propofol 50 mcg/kg/m, Nimbex, and IV fluid of 0.9 normal saline at 75 mL per hour. Patient is on tube feeding. Had issues with her urine output yesterday, responded to fluid bolus followed by Lasix. Urine output is about 20-30 mL/h at present. Chest x-ray showed bilateral interstitial airspace disease. Slightly better compared to the one before intubation. ABG showed a pO2 of 93 pCO2 of 36 pH of 7.43. WBC count is 4.6 hemoglobin is 8.2 platelets are 227. Basic metabolic profile is normal. Ferritin however is 952 LDH is 1277 C-reactive protein is 79 d-dimer is 1.01 patient is sedated and paralyzed on mechanical ventilation Reevaluated today on 06/02/19, patient remains in the ICU, intubated, mechanically ventilated. Her ventilator settings are assist control rate of 28 tidal volume of 400 FiO2 is 40% PEEP is at 12. Patient is on propofol at 50 mcg/kg/m, she is on fentanyl at 1.5 mcg/kg/m, not requiring any Nimbex, IV fluid 0.9 normal ritu ine at 75 mL per hour. Patient iscovid 19 positive. Patient is on enteral feeding at 50 mL per hour. ABG showed a pO2 of 97 pCO2 of 39 pH of 7.40. CBC is relatively normal except for hemoglobin of 8.4. D-dimer is 1.02. Electrodes are normal renal profile is normal LDH is 1079, C-reactive protein is 35 ferritin is 766. Chest x-ray showed bilateral infiltrates right more so than left, not much of significant change in the last 24 hours, but definitely not worse. It is actually improved compared to her baseline chest x-ray before intubation Reevaluated today on 06/13/19, patient remains in the ICU, intubated and mechanically ventilated. Ventilator settings are assist control rate of 28, tidal volume is 400, FiO2 is 40%, PEEP is 10 and I cut it down to 8 today. Patient is on fentanyl at 0.5 mcg/kg per hour and propofol at 40 mcg/kg/minute. ABG showed a pO2 of 100 pCO2 of 37 pH of 7.39. Basic metabolic profile is normal. Renal profile is normal. CBC is relatively normal except for hemoglobin of 8. Inflammatory markers today showed C-reactive protein of 26.5 LDH is 02/24/2002 and ferritin is 520. Chest x-ray is showing slight improvement with bibasilar infiltrates compared to baseline. Objective - Vital Signs Vital signs: Vital Signs Temp 97.5 F L 06/03/19 08:00 Pulse 80 06/03/19 10:00 Resp 28 H 06/03/19 10:00 BP 101/51 06/03/19 08:00 Pulse Ox 97 06/03/19 10:00 Intake & Output 06/02/19 06/03/19 06/03/19 18:59 06:59 18:59 Intake Total 2034.197 1754.467 534.568 Output Total 860 440 455 Balance 8408.310 7871.467 79.568 Weight 73.936 kg 73.936 kg Intake: IV 39 36 312 Sodium Chloride 0.9% 1, 300 000 ml @ 75 mls/hr IV . [id number] [facility] Rx#:[id number] pressure bag 39 36 12 Intake, IV Titration 3759.486 3841.467 60.568 Amount Propofol 1,000 mg In 293.197 290.942 49.353 Empty Bag 1 bag @ Titrate IV .Q0M [facility] Rx#: [id number] Sodium Chloride 0.9% 1, 825 900 000 ml @ 75 mls/hr IV . [id number] [facility] Rx#:[id number] cefTRIAXone 1 gm In 50 Sodium Chloride 0.9% 50 ml @ 100 mls/hr IVPB Q24HR [facility] Rx#:[id number] fentaNYL (PF) 1,000 mcg 100 98.525 11.215 In Sodium Chloride 0.9% 80 ml @ 1 MCG/KG/HR 7.394 mls/hr IV .[id number] [facility] Rx#:[id number] Tube Feeding 507 429 132 Other 220 30 Output: Urine 860 440 455 Other: Voiding Method Indwelling Catheter Indwelling Catheter # Bowel Movements 1 1 ABP, PAP, CO, CI - Last Documented Arterial Blood Pressure 149/50 - Exam GENERAL EXAM: Alert, 78-year-old white female, on mechanical ventilation, sedated but arousable on lower dose of propofol and fentanyl. Head: Atraumatic, normocephalic. Endotracheal tube and orogastric tube are intact. HEENT: PERRLA, EOMI, no icterus. Left subclavian line is noted. Moist mucous membranes. CHEST: No chest wall deformity. Symmetrical expansion. LUNGS: Fine crackles at the bases bilaterally. No rhonchi no wheezes. CVS: Regular rate and rhythm, normal S1 and S2, no gallops, no murmurs, no rubs ABDOMEN: Soft, nontender. No hepatosplenomegaly, normal bowel sounds, no guar ding or rigidity. EXTREMITIES: No clubbing, no edema, no cyanosis, 2+ pulses and upper and lower extremities. MUSCULOSKELETAL: Muscle strength and tone normal. SPINE: No scoliosis or deformity SKIN: No rashes CENTRAL NERVOUS SYSTEM: Arousable in spite of sedation, follows very simple instructions. PSYCHIATRIC: Cannot be assessed. - Labs CBC & Chem 7: 06/03/19 05:02 06/03/19 05:02 Labs: Abnormal Lab Results - Last 24 Hours (Table) 06/02/19 06/03/19 06/03/19 Range/Units 18:13 00:11 05:02 RBC (3.80-5.40) m/uL Hgb (11.4-16.0) gm/dL Hct (34.0-46.0) % MCV (80.0-100.0) fL MCH (25.0-35.0) pg MCHC (31.0-37.0) g/dL RDW (11.5-15.5) % Lymphocytes # (Manual) (1.0-4.8) k/uL Myelocytes # (Manual) (0) k/uL Nucleated RBCs (0-0) /100 WBC D-Dimer 1.13 H (<0.60) mg/L FEU ABG O2 Saturation (94-97) % Chloride (98-107) mmol/L BUN (7-17) mg/dL Creatinine (0.52-1.04) mg/dL Glucose (74-99) mg/dL POC Glucose (mg/dL) 147 H 140 H (75-99) mg/dL Calcium (8.4-10.2) mg/dL Ferritin (10.0-291.0) ng/mL AST (14-36) U/L Alkaline Phosphatase (38-126) U/L Lactate Dehydrogenase (313-618) U/L C-Reactive Protein (<10.0) mg/L Total Protein (6.3-8.2) g/dL Albumin (3.5-5.0) g/dL 06/03/19 06/03/19 06/03/19 Range/Units 05:02 05:02 06:14 RBC 3.51 L (3.80-5.40) m/uL Hgb 8.0 L (11.4-16.0) gm/dL Hct 26.7 L (34.0-46.0) % MCV 76.0 L (80.0-100.0) fL MCH 22.9 L (25.0-35.0) pg MCHC 30.2 L (31.0-37.0) g/dL RDW 17.6 H (11.5-15.5) % Lymphocytes # (Manual) 0.44 L (1.0-4.8) k/uL Myelocytes # (Manual) 0.07 H (0) k/uL Nucleated RBCs 1 H (0-0) /100 WBC D-Dimer (<0.60) mg/L FEU ABG O2 Saturation (94-97) % Chloride 111 H (98-107) mmol/L BUN 35 H (7-17) mg/dL Creatinine 0.50 L (0.52-1.04) mg/dL Glucose 143 H (74-99) mg/dL POC Glucose (mg/dL) 137 H (75-99) mg/dL Calcium 7.8 L (8.4-10.2) mg/dL Ferritin 519.9 H (10.0-291.0) ng/mL AST 13 L (14-36) U/L Alkaline Phosphatase 157 H (38-126) U/L Lactate Dehydrogenase 1103 H (313-618) U/L C-Reactive Protein 26.5 H (<10.0) mg/L Total Protein 4.6 L (6.3-8.2) g/dL Albumin 2.3 L (3.5-5.0) g/dL 06/03/19 06/03/19 Range/Units 07:54 11:20 RBC (3.80-5.40) m/uL Hgb (11.4-16.0) gm/dL Hct (34.0-46.0) % MCV (80.0-100.0) fL MCH (25.0-35.0) pg MCHC (31.0-37.0) g/dL RDW (11.5-15.5) % Lymphocytes # (Manual) (1.0-4.8) k/uL Myelocytes # (Manual) (0) k/uL Nucleated RBCs (0-0) /100 WBC D-Dimer (<0.60) mg/L FEU ABG O2 Saturation 98.2 H (94-97) % Chloride (98-107) mmol/L BUN (7-17) mg/dL Creatinine (0.52-1.04) mg/dL Glucose (74-99) mg/dL POC Glucose (mg/dL) 137 H (75-99) mg/dL Calcium (8.4-10.2) mg/dL Ferritin (10.0-291.0) ng/mL AST (14-36) U/L Alkaline Phosphatase (38-126) U/L Lactate Dehydrogenase (313-618) U/L C-Reactive Protein (<10.0) mg/L Total Protein (6.3-8.2) g/dL Albumin (3.5-5.0) g/dL Microbiology - Last 24 Hours (Table) 06/02/19 04:00 Gram Stain - Preliminary Sputum Sputum Culture - Preliminary Assessment and Plan Assessment: Impression: Acute hypoxemic respiratory failure related to acute COVID 19 related pneumonia, requiring intubation and mechanical ventilation. Acute urinary tract infection, related to E. coli History of hypertension Depression Recent history of large soft tissue mass involving the posterior right hip status post biopsy, results are pending Ex-smoker Recommendation: Continue ventilatory support. Decrease PEEP to 8 and continue FiO2 at 40%. Cut down on sedation, manage patient hopefully with propofol only and discontinue fentanyl. Continue nutritional support. Continue GI and DVT prophylaxis. Continue antibiotics and hydroxychloroquine. As well as IV Solu-Medrol. Continue to monitor inflammatory markers for covid 19 pneumonitis. Consider weaning trials in the next 24 hours if the patient tolerates lower PEEP. Prognosis is definitely guarded. Patient is critically ill. Critical care time is 33 minutes. Time with Patient: Greater than 30
--- NOTE | 2019-06-03 16:38 | P.PN ---
Subjective Progress Note Date: 06/03/19 Principal diagnosis: COVID pneumonia Patient was seen early this morning. Intubated and sedated on vent. PEEP is currently at 8. Rate of 28. FiO2 40%. Tidal volume 400. Tube feeds are tolerated. Objective - Vital Signs Vital signs: Vital Signs Temp 98 F 06/03/19 12:00 Pulse 86 06/03/19 14:00 Resp 28 H 06/03/19 14:00 BP 101/51 06/03/19 08:00 Pulse Ox 97 06/03/19 14:00 Intake & Output 06/02/19 06/03/19 06/03/19 18:59 06:59 18:59 Intake Total 2034.197 1754.467 942.670 Output Total 203 321 8361 Balance 1521.804 1988.467 -312.330 Weight 73.936 kg 73.936 kg Intake: IV 39 36 546 Sodium Chloride 0.9% 1, 525 000 ml @ 75 mls/hr IV . [id number] [facility] Rx#:[id number] pressure bag 39 36 21 Intake, IV Titration 8917.371 1248.467 105.670 Amount Propofol 1,000 mg In 293.197 290.942 94.455 Empty Bag 1 bag @ Titrate IV .Q0M [facility] Rx#: [id number] Sodium Chloride 0.9% 1, 825 900 000 ml @ 75 mls/hr IV . [id number] [facility] Rx#:[id number] cefTRIAXone 1 gm In 50 Sodium Chloride 0.9% 50 ml @ 100 mls/hr IVPB Q24HR [facility] Rx#:[id number] fentaNYL (PF) 1,000 mcg 100 98.525 11.215 In Sodium Chloride 0.9% 80 ml @ 1 MCG/KG/HR 7.394 mls/hr IV .[id number] [facility] Rx#:[id number] Tube Feeding 507 429 231 Other 220 60 Output: Urine 211 289 5974 Other: Voiding Method Indwelling Catheter Indwelling Catheter Indwelling Catheter # Bowel Movements 1 1 ABP, PAP, CO, CI - Last Documented Arterial Blood Pressure 126/43 - Exam General: [non toxic], [intubated], [appears at stated age] Derm: [warm], [dry] Head: [atraumatic], [normocephalic], [symmetric] Eyes: [EOMI], [no lid lag], [anicteric sclera] Mouth: [no lip lesion], [mucus membranes moist] Cardiovascular: [S1S2 reg], [no murmur], [positive DP pulse bilateral], Lungs: [Coarse breath sounds bilaterally], [no rhonchi, no rales] , [no accessory muscle use] Abdominal: [soft], [ nontender to palpation], [no guarding], [no appreciable organomegaly] Ext: [no gross muscle atrophy], [no edema], [no contractures] Neuro: [no focal neuro deficits] Psych: [Alert], [oriented], [appropriate affect] - Labs CBC & Chem 7: 06/03/19 05:02 06/03/19 05:02 Labs: Abnormal Lab Results - Last 24 Hours (Table) 06/02/19 06/03/19 06/03/19 Range/Units 18:13 00:11 05:02 RBC (3.80-5.40) m/uL Hgb (11.4-16.0) gm/dL Hct (34.0-46.0) % MCV (80.0-100.0) fL MCH (25.0-35.0) pg MCHC (31.0-37.0) g/dL RDW (11.5-15.5) % Lymphocytes # (Manual) (1.0-4.8) k/uL Myelocytes # (Manual) (0) k/uL Nucleated RBCs (0-0) /100 WBC D-Dimer 1.13 H (<0.60) mg/L FEU ABG O2 Saturation (94-97) % Chloride (98-107) mmol/L BUN (7-17) mg/dL Creatinine (0.52-1.04) mg/dL Glucose (74-99) mg/dL POC Glucose (mg/dL) 147 H 140 H (75-99) mg/dL Calcium (8.4-10.2) mg/dL Ferritin (10.0-291.0) ng/mL AST (14-36) U/L Alkaline Phosphatase (38-126) U/L Lactate Dehydrogenase (313-618) U/L C-Reactive Protein (<10.0) mg/L Total Protein (6.3-8.2) g/dL Albumin (3.5-5.0) g/dL 06/03/19 06/03/19 06/03/19 Range/Units 05:02 05:02 06:14 RBC 3.51 L (3.80-5.40) m/uL Hgb 8.0 L (11.4-16.0) gm/dL Hct 26.7 L (34.0-46.0) % MCV 76.0 L (80.0-100.0) fL MCH 22.9 L (25.0-35.0) pg MCHC 30.2 L (31.0-37.0) g/dL RDW 17.6 H (11.5-15.5) % Lymphocytes # (Manual) 0.44 L (1.0-4.8) k/uL Myelocytes # (Manual) 0.07 H (0) k/uL Nucleated RBCs 1 H (0-0) /100 WBC D-Dimer (<0.60) mg/L FEU ABG O2 Saturation (94-97) % Chloride 111 H (98-107) mmol/L BUN 35 H (7-17) mg/dL Creatinine 0.50 L (0.52-1.04) mg/dL Glucose 143 H (74-99) mg/dL POC Glucose (mg/dL) 137 H (75-99) mg/dL Calcium 7.8 L (8.4-10.2) mg/dL Ferritin 519.9 H (10.0-291.0) ng/mL AST 13 L (14-36) U/L Alkaline Phosphatase 157 H (38-126) U/L Lactate Dehydrogenase 1103 H (313-618) U/L C-Reactive Protein 26.5 H (<10.0) mg/L Total Protein 4.6 L (6.3-8.2) g/dL Albumin 2.3 L (3.5-5.0) g/dL 06/03/19 06/03/19 Range/Units 07:54 11:20 RBC (3.80-5.40) m/uL Hgb (11.4-16.0) gm/dL Hct (34.0-46.0) % MCV (80.0-100.0) fL MCH (25.0-35.0) pg MCHC (31.0-37.0) g/dL RDW (11.5-15.5) % Lymphocytes # (Manual) (1.0-4.8) k/uL Myelocytes # (Manual) (0) k/uL Nucleated RBCs (0-0) /100 WBC D-Dimer (<0.60) mg/L FEU ABG O2 Saturation 98.2 H (94-97) % Chloride (98-107) mmol/L BUN (7-17) mg/dL Creatinine (0.52-1.04) mg/dL Glucose (74-99) mg/dL POC Glucose (mg/dL) 137 H (75-99) mg/dL Calcium (8.4-10.2) mg/dL Ferritin (10.0-291.0) ng/mL AST (14-36) U/L Alkaline Phosphatase (38-126) U/L Lactate Dehydrogenase (313-618) U/L C-Reactive Protein (<10.0) mg/L Total Protein (6.3-8.2) g/dL Albumin (3.5-5.0) g/dL Microbiology - Last 24 Hours (Table) 06/02/19 04:00 Gram Stain - Preliminary Sputum Sputum Culture - Preliminary Assessment and Plan Assessment: Acute hypoxic respiratory failure secondary to COVID 19 pneumonia Sepsis likely due to Covid in 19 along with UTI Hypertension Elevated troponin likely demand ischemia Hip tumor Patient was electively intubated. Plans: She is currently continued azithromycin for concerns of acute bronchitis. Rocephin has been discontinued. Completed course of hydroxychloroquine for Covid infection. Also on zinc. Ventilator management by pulmonology. Plans to repeat chest x-ray tomorrow morning. Follow d-dimer (slightly elevated), ferritin (decreasing), LDH (slightly increasing), CRP (decreasing). Infectious disease following. Plans: Management as above. BP 126/43. Plans: Continue lisinopril and metoprolol. Monitor vitals, adjust medications as necessary. Her troponins are flat. Troponin 0.48, 0.195, 0.190. Likely demand ischemia from sepsis. Echocardiogram with no wall motion abnormalities. Plans: Cardiology evaluated, nothing further to do. Plans: Adequate pain management. [Patient intubated. Stable. Pulmonology on board. Infectious disease following. She is pending clinical improvement. Prognosis is guarded.]
[2019-06-03 16:57] LABS: Glucose,Whole Blood 122 mg/dL (75-99)
--- NOTE | 2019-06-03 22:24 | PN ---
PROGRESS NOTE DATE OF SERVICE: 06/03/2019 REASON FOR FOLLOWUP: Acute COVID-19 pneumonia. INTERVAL HISTORY: The patient is currently afebrile. The patient is hemodynamically stable, not on any pressor support. Patient's FiO2 is currently down to 40%. No purulent secretions in the ET tube reported by the nursing staff or any diarrhea. PHYSICAL EXAMINATION: Blood pressure 114/55 with a pulse of 80, temperature 98.1. She is 97% on 40% FiO2. General description is an elderly female intubated on the vent. RESPIRATORY SYSTEM: Unlabored breathing. Lungs are clear to auscultation per the RN. HEART: Regular rhythm. EXTREMITIES: No edema of the feet. LABS: Hemoglobin 8.3, white count 7.3, BUN of 35, creatinine 0.50. DIAGNOSTIC IMPRESSION AND PLAN: 1. Patient with acute respiratory failure which is likely multifactorial in this patient who does have a component of acute COVID-19 pneumonia. The patient is currently on Plaquenil and zinc and Solu-Medrol; to continue. 2. Patient with diarrhea. Will add Questran for symptomatic relief and monitor clinical course closely. MMODL / IJN: [id number] /
[2019-06-03 23:38] LABS: Glucose,Whole Blood 118 mg/dL (75-99)
[2019-06-04] MEDS: INSULIN ASPART (NovoLOG) 100 UNIT/ML VIAL SQ SCH ×5 (00:20→23:43)
[2019-06-04 04:55] LABS: Anisocytosis Slight; Basophils # (A) 0.1 k/uL (0-0.2); Basophils % (A) 1 %; Eosinophils # (A) 0.1 k/uL (0-0.7); Eosinophils % (A) 1 %; HCT 28.6 % (34.0-46.0); HGB 8.7 gm/dL (11.4-16.0); Hypochromasia Marked; Lymphocytes # (A) 0.8 k/uL (1.0-4.8); Lymphocytes % (A) 7 %; MCHC 30.4 g/dL (31.0-37.0); MCV 75.6 fL (80.0-100.0); Mean Platelet Volume 9.8; Microcytosis Moderate; Monocytes # (A) 0.4 k/uL (0-1.0); Monocytes % (A) 4 %; Neutrophils # (A) 8.8 k/uL (1.3-7.7); Neutrophils % (A) 87 %; Platelet Count 365 k/uL (150-450); Poikilocytosis Moderate; RBC 3.78 m/uL (3.80-5.40); RDW 18.5 % (11.5-15.5); WBC 10.2 k/uL (3.8-10.6)
[2019-06-04 05:07] LABS: ALT 12 U/L (4-34); AST 13 U/L (14-36); African American GFR (CKD) >90 (>60 ml/min/1.73 sqM); Albumin 2.4 g/dL (3.5-5.0); Alkaline Phosphatase 156 U/L (38-126); Anion Gap 6 mmol/L; Blood Urea Nitrogen 36 mg/dL (7-17); C Reactive Protein 23.4 mg/L (<10.0); Calcium 8.2 mg/dL (8.4-10.2); Carbon Dioxide 21 mmol/L (22-30); Chloride 113 mmol/L (98-107); Creatine Kinase <20 U/L (30-135); Glucose 119 mg/dL (74-99); LDH 1301 U/L (313-618); Non-African American GFR(CKD) >90 (>60 ml/min/1.73 sqM); Potassium 3.3 mmol/L (3.5-5.1); Sodium 140 mmol/L (137-145); Total Bilirubin 0.2 mg/dL (0.2-1.3); Total Protein 4.8 g/dL (6.3-8.2)
[2019-06-04 05:48] LABS: Glucose,Whole Blood 116 mg/dL (75-99)
[2019-06-04] MEDS: POTASSIUM BICARBONATE/CIT AC 20 MEQ TABLET.EFF NG-TUBE SCH ×2 (05:59→08:18)
--- NOTE | 2019-06-04 06:36 | XR ---
EXAMINATION TYPE: XR chest 1V portable DATE OF EXAM: 06/04/2019 CLINICAL HISTORY: Difficulty breathing progress study. TECHNIQUE: Single AP portable upright view of the chest is obtained. COMPARISON: Chest x-ray from one day earlier and older studies. FINDINGS: Stable endotracheal and orogastric tubes. Stable left subclavian central venous catheter. C ardiac silhouette size stable and mildly enlarged with atherosclerotic aorta. Background chronic emph ysematous change with diffuse increased lung markings and increased lower lung opacities bilaterally. Silhouetting left hemidiaphragm redemonstrated. No pneumothorax seen. Osseous structures are intact. IMPRESSION: Overall stable findings from most recent x-ray, chronic emphysematous change and mild ca rdiomegaly with diffuse interstitial edema and/or infiltrates along with bilateral lower lung infiltr ates and/or atelectasis and probable small left pleural effusion are all redemonstrated.
[2019-06-04 07:53] LABS: ABG Base Excess -5.8 mmol/L; ABG HCO3 20 mmol/L (21-25); ABG Oxygen Saturation 98.4 % (94-97); ABG PCO2 36 mmHg (35-45); ABG PH 7.35 (7.35-7.45); ABG PO2 100 mmHg (83-108); ABG TCO2 21 mmol/L (19-24)
[2019-06-04 07:59] LABS: Allen Test Performed? no
[2019-06-04] MEDS: SODIUM CHLORIDE 0.9% 1,000 ML IV SCH ×2 (08:11→19:52)
[2019-06-04] MEDS: methylPREDNISolone SOD SUCCI 40 MG/ML 1 ML VIAL IV SCH ×2 (08:17→19:52)
[2019-06-04] MEDS: lisinopriL 20 MG TAB PO SCH ×2 (08:17→19:52)
[2019-06-04] MEDS: METOPROLOL TARTRATE 25 MG TAB PO SCH ×2 (08:17→19:53)
[2019-06-04] MEDS: HEPARIN SODIUM,PORCINE 5,000 UNIT/ML 1 ML VIAL SQ SCH (08:17)
[2019-06-04] MEDS: PARoxetine 10 MG TAB PO SCH (08:17)
[2019-06-04] MEDS: CHLORHEXIDINE GLUCONATE 15 ML CUP MUCOUS MEM SCH (08:17)
[2019-06-04] MEDS: ASPIRIN 81 MG PO SCH (08:17)
[2019-06-04] MEDS: ZINC SULFATE 220 MG CAP PO SCH (08:17)
[2019-06-04] MEDS: PANTOPRAZOLE 40 MG/10 ML VIAL IVP SCH (08:18)
[2019-06-04] MEDS: CHOLESTYRAMINE (WITH SUGAR) 4 GM PACKET OG-TUBE SCH ×2 (08:19→17:46)
[2019-06-04] MEDS: AZITHROMYCIN 250 MG TAB PO SCH (08:19)
[2019-06-04] MEDS: HYDROXYCHLOROQUINE ORAL SUSP 200 MG/8 ML ORAL.SYRG PO SCH ×2 (08:32→20:06)
[2019-06-04] MEDS ORDERED: FUROSEMIDE 10 MG/ML 2 ML VIAL IV STA (08:49)
[2019-06-04 09:42] LABS: ABG Base Excess -5.5 mmol/L; ABG HCO3 20 mmol/L (21-25); ABG Oxygen Saturation 98.2 % (94-97); ABG PCO2 35 mmHg (35-45); ABG PH 7.36 (7.35-7.45); ABG PO2 101 mmHg (83-108); ABG TCO2 21 mmol/L (19-24); Allen Test Performed? Yes
[2019-06-04 11:19] LABS: Ferritin 445.7 ng/mL (10.0-291.0)
[2019-06-04 11:41] LABS: Glucose,Whole Blood 117 mg/dL (75-99)
--- NOTE | 2019-06-04 13:10 | P.PN ---
Subjective Progress Note Date: 06/04/19 Principal diagnosis: Acute hypoxic respiratory failure secondary to covid 19 pneumonitis 78-year-old white female patient with past medical history of hypertension, depression, ex-smoker, who presented to the emergency department on 05/26/2019 for evaluation of nausea for 4 days. Patient has only been able to consume liquids, and has been having vomiting with solid food. She denied fevers, denied cough, denied any chest or abdominal pain, denied any shortness of breath. She was feeling weak, fatigued. Patient was recently diagnosed with a large soft tissue mass involving the posterior right hip that was biopsied a week ago and she is awaiting results. Chest x-ray showed mild peribronchial cuffing, on the basis of possible reactive airway disease, but no focal airspace opacity, pleural effusion with pneumothorax on initial chest x-ray on 05/26/2019. White blood cell count was 5.7, hemoglobin is 10.0, lymphocyte count was 0.5, sodium is 134, potassium is 4.5, chloride is 98, CO2 is 26, B1 is 22, creatinine 0.7, plasma lactic acid was less than 0.5, ferritin was elevated at 524, LDH 1047, troponins were elevated with the first one at 0.418, and trended down to 0.19, pro-calcitonin was 0.39, patient was found to have a urinary tract infection with urine cultures positive for E. coli, she was started on, a Rocephin and Zithromax, her COVID 19 was positive. She was started on Plaquenil and IV steroids, however gradually her oxygenation continued to worsen, and today on 05/31/2019 patient is on 8 L of oxygen, with marginal O2 saturations, she feels very fatigued and weak, and dyspneic. She did have one episode of low-grade fever today, her follow-up blood work showed white blood cell count of 6.5, hemoglobin 9.3, electrolytes are within normal limits, B1 of 25, creatinine 0.71, LDH continuously trending up to 1491. Follow-up chest x-ray today shows a worsening of the known multifocal COVID 19 related pneumonia, most confluent in the right midlung. Patient is dyspnea, her O2 saturations have worsen, blood gas was obtained, showing pO2 57, pCO2 36, pH of 7.42 this was done and FiO2 of 60%. Patient is being transferred to the intensive care unit with orders for intubation and placement on mechanical ventilator by anesthesia services. Patient was reevaluated today on 06/01/19, remains in the unit, patient was intubated and mechanically ventilated yesterday. Her present vent settings are tidal volume is 400 assist control rate is 28 FiO2 is 40% and PEEP is at 12. Her peak airway pressure is 28 and plateau pressures 24. Patient is on fentanyl at 1.5 mcg/kg/h she is also on propofol 50 mcg/kg/m, Nimbex, and IV fluid of 0.9 normal saline at 75 mL per hour. Patient is on tube feeding. Had issues with her urine output yesterday, responded to fluid bolus followed by Lasix. Urine output is about 20-30 mL/h at present. Chest x-ray showed bilateral interstitial airspace disease. Slightly better compared to the one before intubation. ABG showed a pO2 of 93 pCO2 of 36 pH of 7.43. WBC count is 4.6 hemoglobin is 8.2 platelets are 227. Basic metabolic profile is normal. Ferritin however is 952 LDH is 1277 C-reactive protein is 79 d-dimer is 1.01 patient is sedated and paralyzed on mechanical ventilation Reevaluated today on 06/02/19, patient remains in the ICU, intubated, mechanically ventilated. Her ventilator settings are assist control rate of 28 tidal volume of 400 FiO2 is 40% PEEP is at 12. Patient is on propofol at 50 mcg/kg/m, she is on fentanyl at 1.5 mcg/kg/m, not requiring any Nimbex, IV fluid 0.9 normal ritu ine at 75 mL per hour. Patient iscovid 19 positive. Patient is on enteral feeding at 50 mL per hour. ABG showed a pO2 of 97 pCO2 of 39 pH of 7.40. CBC is relatively normal except for hemoglobin of 8.4. D-dimer is 1.02. Electrodes are normal renal profile is normal LDH is 1079, C-reactive protein is 35 ferritin is 766. Chest x-ray showed bilateral infiltrates right more so than left, not much of significant change in the last 24 hours, but definitely not worse. It is actually improved compared to her baseline chest x-ray before intubation Reevaluated today on 06/03/19, patient remains in the ICU, intubated and mechanically ventilated. Ventilator settings are assist control rate of 28, tidal volume is 400, FiO2 is 40%, PEEP is 10 and I cut it down to 8 today. Patient is on fentanyl at 0.5 mcg/kg per hour and propofol at 40 mcg/kg/minute. ABG showed a pO2 of 100 pCO2 of 37 pH of 7.39. Basic metabolic profile is normal. Renal profile is normal. CBC is relatively normal except for hemoglobin of 8. Inflammatory markers today showed C-reactive protein of 26.5 LDH is 02/24/2002 and ferritin is 520. Chest x-ray is showing slight improvement with bibasilar infiltrates compared to baseline. Reevaluated today on 06/04/19, patient remains in the ICU, intubated and mechanically ventilated. Her ventilatory settings are assist control rate of 28 tidal volume is 400 FiO2 is 40% and PEEP is 8. Patient is in the process of having her propofol on hold, and I will most likely recommend pressure support of 8 and CPAP on this patient and repeat her ABG in half an hour or so, may consider weaning the patient and extubating her. Chest x-ray is showing slight improvement but nonetheless continues to show diffuse interstitial infiltrates. Patient was given Lasix 20 mg IV push. And she seems to be awake, she does have thick secretions during suctioning. Her labs today showed a pO2 of 100 pCO2 of 36 pH of 7.35. Her electrolytes in the upper profile are normal CBC is normal. CPAP ABG showed a pO2 of 101 pCO2 of 35 pH of 7.36. Inflammatory markers today showed improvement with her C-reactive protein, LDH, and ferritin. Objective - Vital Signs Vital signs: Vital Signs Temp 37.3 F L 06/04/19 09:00 Pulse 89 06/04/19 12:00 Resp 28 H 06/04/19 12:00 BP 142/67 06/04/19 12:00 Pulse Ox 95 06/04/19 12:00 Intake & Output 06/03/19 06/04/19 06/04/19 18:59 06:59 18:59 Intake Total 4680.653 9203.901 790 Output Total 1775 1885 1005 Balance -424.330 -254.099 -215 Weight 73.936 kg Intake: IV 858 936 558 Sodium Chloride 0.9% 1, 825 900 525 000 ml @ 75 mls/hr IV . [id number] [facility] Rx#:[id number] pressure bag 33 36 33 Intake, IV Titration 105.670 232.901 0 Amount Propofol 1,000 mg In 94.455 232.901 0 Empty Bag 1 bag @ Titrate IV .Q0M [facility] Rx#: [id number] fentaNYL (PF) 1,000 mcg 11.215 In Sodium Chloride 0.9% 80 ml @ 1 MCG/KG/HR 7.394 mls/hr IV .[id number] [facility] Rx#:[id number] Tube Feeding 297 462 132 Other 90 100 Output: Urine 9610 795 5955 Stool 400 1450 Other: Voiding Method Indwelling Catheter Indwelling Catheter Indwelling Catheter ABP, PAP, CO, CI - Last Documented Arterial Blood Pressure 160/59 - Exam GENERAL EXAM: Alert, 78-year-old white female, on mechanical ventilation, awake, and follows simple instructions. Head: Atraumatic, normocephalic. Endotracheal tube and orogastric tube are intact. HEENT: PERRLA, EOMI, no icterus. Left subclavian line is noted. Moist mucous membranes. CHEST: No chest wall deformity. Symmetrical expansion. LUNGS: Fine crackles at the bases bilaterally. CVS: Regular rate and rhythm, normal S1 and S2, no gallops, no murmurs, no rubs ABDOMEN: Soft, nontender. No hepatosplenomegaly, normal bowel sounds, no guarding or rigidity. EXTREMITIES: No clubbing, no edema, no cyanosis, 2+ pulses and upper and lower extremities. MUSCULOSKELETAL: Muscle strength and tone normal. SPINE: No scoliosis or deformity SKIN: No rashes CENTRAL NERVOUS SYSTEM: Awake, oriented 3, no gross focal neurologic deficits. PSYCHIATRIC: Normal mood affect and normal mental status examination. - Labs CBC & Chem 7: 06/04/19 04:39 06/04/19 04:39 Labs: Abnormal Lab Results - Last 24 Hours (Table) 06/03/19 06/03/19 06/04/19 Range/Units 16:56 23:36 04:39 RBC 3.78 L (3.80-5.40) m/uL Hgb 8.7 L (11.4-16.0) gm/dL Hct 28.6 L (34.0-46.0) % MCV 75.6 L (80.0-100.0) fL MCH 23.0 L (25.0-35.0) pg MCHC 30.4 L (31.0-37.0) g/dL RDW 18.5 H (11.5-15.5) % Neutrophils # 8.8 H (1.3-7.7) k/uL Lymphocytes # 0.8 L (1.0-4.8) k/uL ABG HCO3 (21-25) mmol/L ABG O2 Saturation (94-97) % Potassium (3.5-5.1) mmol/L Chloride (98-107) mmol/L Carbon Dioxide (22-30) mmol/L BUN (7-17) mg/dL Glucose (74-99) mg/dL POC Glucose (mg/dL) 122 H 118 H (75-99) mg/dL Calcium (8.4-10.2) mg/dL Ferritin (10.0-291.0) ng/mL AST (14-36) U/L Alkaline Phosphatase (38-126) U/L Lactate Dehydrogenase (313-618) U/L Creatine Kinase (30-135) U/L C-Reactive Protein (<10.0) mg/L Total Protein (6.3-8.2) g/dL Albumin (3.5-5.0) g/dL 06/04/19 06/04/19 06/04/19 Range/Units 04:39 05:47 07:48 RBC (3.80-5.40) m/uL Hgb (11.4-16.0) gm/dL Hct (34.0-46.0) % MCV (80.0-100.0) fL MCH (25.0-35.0) pg MCHC (31.0-37.0) g/dL RDW (11.5-15.5) % Neutrophils # (1.3-7.7) k/uL Lymphocytes # (1.0-4.8) k/uL ABG HCO3 20 L (21-25) mmol/L ABG O2 Saturation 98.4 H (94-97) % Potassium 3.3 L (3.5-5.1) mmol/L Chloride 113 H (98-107) mmol/L Carbon Dioxide 21 L (22-30) mmol/L BUN 36 H (7-17) mg/dL Glucose 119 H (74-99) mg/dL POC Glucose (mg/dL) 116 H (75-99) mg/dL Calcium 8.2 L (8.4-10.2) mg/dL Ferritin 445.7 H (10.0-291.0) ng/mL AST 13 L (14-36) U/L Alkaline Phosphatase 156 H (38-126) U/L Lactate Dehydrogenase 1301 H (313-618) U/L Creatine Kinase <20 L (30-135) U/L C-Reactive Protein 23.4 H (<10.0) mg/L Total Protein 4.8 L (6.3-8.2) g/dL Albumin 2.4 L (3.5-5.0) g/dL 06/04/19 06/04/19 Range/Units 09:36 11:39 RBC (3.80-5.40) m/uL Hgb (11.4-16.0) gm/dL Hct (34.0-46.0) % MCV (80.0-100.0) fL MCH (25.0-35.0) pg MCHC (31.0-37.0) g/dL RDW (11.5-15.5) % Neutrophils # (1.3-7.7) k/uL Lymphocytes # (1.0-4.8) k/uL ABG HCO3 20 L (21-25) mmol/L ABG O2 Saturation 98.2 H (94-97) % Potassium (3.5-5.1) mmol/L Chloride (98-107) mmol/L Carbon Dioxide (22-30) mmol/L BUN (7-17) mg/dL Glucose (74-99) mg/dL POC Glucose (mg/dL) 117 H (75-99) mg/dL Calcium (8.4-10.2) mg/dL Ferritin (10.0-291.0) ng/mL AST (14-36) U/L Alkaline Phosphatase (38-126) U/L Lactate Dehydrogenase (313-618) U/L Creatine Kinase (30-135) U/L C-Reactive Protein (<10.0) mg/L Total Protein (6.3-8.2) g/dL Albumin (3.5-5.0) g/dL Microbiology - Last 24 Hours (Table) 06/02/19 04:00 Gram Stain - Final Sputum Sputum Culture - Final Bernadette albicans Assessment and Plan Assessment: Impression: Acute hypoxemic respiratory failure related to acute COVID 19 related pneumonia, requiring intubation and mechanical ventilation. Acute urinary tract infection, related to E. coli History of hypertension Depression Recent history of large soft tissue mass involving the posterior right hip status post biopsy, results are pending Ex-smoker Recommendation: Patient will be trialed on pressure support and CPAP, and repeat ABG will be done in the next hour or so. Continue same ventilatory settings for the time being until patient is placed on pressure support and CPAP. Hold sedatives and narcotics. Hold enteral feeding if the patient is to be weaned and extubated. Continue GI and DVT prophylaxis. Continue antibiotics and hydroxychloroquine. As well as IV Solu-Medrol. Continue to monitor inflammatory markers for covid [address] on a trial of pressure support and CPAP, and if tolerated will extubated. Nonetheless patient remains critically ill, and even if extubated she will remain in the ICU for the next 24 hours. Critical care time is 33 minutes Time with Patient: Greater than 30
[2019-06-04] MEDS: ALBUTEROL HFA INHALER INHALATION PRN ×2 (16:16→19:46)
[2019-06-04 16:50] LABS: Glucose,Whole Blood 107 mg/dL (75-99)
--- NOTE | 2019-06-04 17:52 | P.PN ---
Subjective Progress Note Date: 06/04/19 Principal diagnosis: COVID pneumonia Patient was seen and examined. Extubated today. Patient has no complaints except for shortness of breath. As per nursing, no other events. Lactic dehydrogenase slightly elevated. CRP improving. C. diff was negative. Objective - Vital Signs Vital signs: Vital Signs Temp 98.6 F 06/04/19 16:00 Pulse 105 H 06/04/19 16:00 Resp 28 H 06/04/19 16:00 BP 148/85 06/04/19 16:00 Pulse Ox 97 06/04/19 16:00 Intake & Output 06/03/19 06/04/19 06/04/19 18:59 06:59 18:59 Intake Total 0206.565 3407.901 1030 Output Total 1775 1885 2830 Balance -424.330 -254.099 -1800 Weight 73.936 kg Intake: IV 858 936 798 Sodium Chloride 0.9% 1, 825 900 750 000 ml @ 75 mls/hr IV . [id number] WENDI Rx#:[id number] pressure bag 33 36 48 Intake, IV Titration 105.670 232.901 0 Amount Propofol 1,000 mg In 94.455 232.901 0 Empty Bag 1 bag @ Titrate IV .Q0M WENDI Rx#: [id number] fentaNYL (PF) 1,000 mcg 11.215 In Sodium Chloride 0.9% 80 ml @ 1 MCG/KG/HR 7.394 mls/hr IV .[id number] WENDI Rx#:[id number] Tube Feeding 297 462 132 Other 90 100 Output: Urine 0931 727 0246 Stool 400 1450 1000 Other: Voiding Method Indwelling Catheter Indwelling Catheter Indwelling Catheter ABP, PAP, CO, CI - Last Documented Arterial Blood Pressure 160/59 - Exam General: [non toxic], [appears dyspnea on 4 L nasal cannula], [appears at stated age] Derm: [warm], [dry] Head: [atraumatic], [normocephalic], [symmetric] Eyes: [EOMI], [no lid lag], [anicteric sclera] Mouth: [no lip lesion], [mucus membranes moist] Cardiovascular: [S1S2 reg], [tachycardia], [positive DP pulse bilateral], Lungs: [Coarse breath sounds bilaterally], [no rhonchi, no rales] , [no accessory muscle use] Abdominal: [soft], [ nontender to palpation], [no guarding], [no appreciable organomegaly] Ext: [no gross muscle atrophy], [no edema], [no contractures] Neuro: [no focal neuro deficits] Psych: [Alert], [oriented], [appropriate affect] - Labs CBC & Chem 7: 06/04/19 04:39 06/04/19 04:39 Labs: Abnormal Lab Results - Last 24 Hours (Table) 06/03/19 06/04/19 06/04/19 Range/Units 23:36 04:39 04:39 RBC 3.78 L (3.80-5.40) m/uL Hgb 8.7 L (11.4-16.0) gm/dL Hct 28.6 L (34.0-46.0) % MCV 75.6 L (80.0-100.0) fL MCH 23.0 L (25.0-35.0) pg MCHC 30.4 L (31.0-37.0) g/dL RDW 18.5 H (11.5-15.5) % Neutrophils # 8.8 H (1.3-7.7) k/uL Lymphocytes # 0.8 L (1.0-4.8) k/uL ABG HCO3 (21-25) mmol/L ABG O2 Saturation (94-97) % Potassium 3.3 L (3.5-5.1) mmol/L Chloride 113 H (98-107) mmol/L Carbon Dioxide 21 L (22-30) mmol/L BUN 36 H (7-17) mg/dL Glucose 119 H (74-99) mg/dL POC Glucose (mg/dL) 118 H (75-99) mg/dL Calcium 8.2 L (8.4-10.2) mg/dL Ferritin 445.7 H (10.0-291.0) ng/mL AST 13 L (14-36) U/L Alkaline Phosphatase 156 H (38-126) U/L Lactate Dehydrogenase 1301 H (313-618) U/L Creatine Kinase <20 L (30-135) U/L C-Reactive Protein 23.4 H (<10.0) mg/L Total Protein 4.8 L (6.3-8.2) g/dL Albumin 2.4 L (3.5-5.0) g/dL 06/04/19 06/04/19 06/04/19 Range/Units 05:47 07:48 09:36 RBC (3.80-5.40) m/uL Hgb (11.4-16.0) gm/dL Hct (34.0-46.0) % MCV (80.0-100.0) fL MCH (25.0-35.0) pg MCHC (31.0-37.0) g/dL RDW (11.5-15.5) % Neutrophils # (1.3-7.7) k/uL Lymphocytes # (1.0-4.8) k/uL ABG HCO3 20 L 20 L (21-25) mmol/L ABG O2 Saturation 98.4 H 98.2 H (94-97) % Potassium (3.5-5.1) mmol/L Chloride (98-107) mmol/L Carbon Dioxide (22-30) mmol/L BUN (7-17) mg/dL Glucose (74-99) mg/dL POC Glucose (mg/dL) 116 H (75-99) mg/dL Calcium (8.4-10.2) mg/dL Ferritin (10.0-291.0) ng/mL AST (14-36) U/L Alkaline Phosphatase (38-126) U/L Lactate Dehydrogenase (313-618) U/L Creatine Kinase (30-135) U/L C-Reactive Protein (<10.0) mg/L Total Protein (6.3-8.2) g/dL Albumin (3.5-5.0) g/dL 06/04/19 06/04/19 Range/Units 11:39 16:48 RBC (3.80-5.40) m/uL Hgb (11.4-16.0) gm/dL Hct (34.0-46.0) % MCV (80.0-100.0) fL MCH (25.0-35.0) pg MCHC (31.0-37.0) g/dL RDW (11.5-15.5) % Neutrophils # (1.3-7.7) k/uL Lymphocytes # (1.0-4.8) k/uL ABG HCO3 (21-25) mmol/L ABG O2 Saturation (94-97) % Potassium (3.5-5.1) mmol/L Chloride (98-107) mmol/L Carbon Dioxide (22-30) mmol/L BUN (7-17) mg/dL Glucose (74-99) mg/dL POC Glucose (mg/dL) 117 H 107 H (75-99) mg/dL Calcium (8.4-10.2) mg/dL Ferritin (10.0-291.0) ng/mL AST (14-36) U/L Alkaline Phosphatase (38-126) U/L Lactate Dehydrogenase (313-618) U/L Creatine Kinase (30-135) U/L C-Reactive Protein (<10.0) mg/L Total Protein (6.3-8.2) g/dL Albumin (3.5-5.0) g/dL Microbiology - Last 24 Hours (Table) 06/02/19 04:00 Gram Stain - Final Sputum Sputum Culture - Final Bernadette albicans Assessment and Plan Assessment: Acute hypoxic respiratory failure secondary to COVID 19 pneumonia Sepsis likely due to Covid in 19 along with UTI Hypertension Elevated troponin likely demand ischemia Hip tumor Patient was extubated on 06/04/2019. Plans: She is currently continued azithromycin for concerns of acute bronchitis. Rocephin has been discontinued. Completed course of hydroxychloroquine for Covid infection. Also on zinc. Plans to repeat chest x-ray tomorrow morning. Follow d-dimer (slightly elevated), ferritin (decreasing), LDH (slightly increasing), CRP (decreasing). Infectious disease following. Plans: Management as above. BP 164/77. Plans: Continue lisinopril and metoprolol. Monitor vitals, adjust medications as necessary. Her troponins are flat. Troponin 0.48, 0.195, 0.190. Likely demand ischemia from sepsis. Echocardiogram with no wall motion abnormalities. Plans: Cardiology evaluated, nothing further to do. Plans: Adequate pain management. [Patient extubated. Stable. Pulmonology on board. Infectious disease following. She is pending clinical improvement. Prognosis is guarded.]
[2019-06-04] MEDS: ENOXAPARIN 60 MG/0.6 ML SYRINGE SQ SCH (19:53)
[2019-06-04] MEDS ORDERED: ENOXAPARIN 40 MG/0.4 ML SYRINGE SQ SCH (21:00)
--- NOTE | 2019-06-04 23:02 | PN ---
PROGRESS NOTE DATE OF SERVICE: 06/04/2019 REASON FOR FOLLOWUP: Acute COVID-19 pneumonia. INTERVAL HISTORY: The patient is currently afebrile. The patient has been extubated this afternoon. She has been breathing comfortably post extubation. Denies having any chest pain. Minimal cough. No nausea, vomiting or any diarrhea. PHYSICAL EXAMINATION: Blood pressure is 145/82, pulse of 89, temperature of 98. She is 95% on 4 L nasal cannula. General description is an elderly female lying in bed in no distress. RESPIRATORY SYSTEM: Unlabored breathing with decreased intensity of breath sounds. No wheeze. HEART: S1, S2. Regular rate and rhythm. ABDOMEN: Soft. No tenderness. LABS: Hemoglobin 8.7, white count 10.2, BUN of 36, creatinine 0.57. DIAGNOSTIC IMPRESSION AND PLAN: Patient with acute COVID-19 pneumonia. The patient seems to have shown some clinical improvement. The patient has been extubated. She has completed her 5-day course of Plaquenil. Currently on a steroid; to continue and monitor her clinical course closely. MMODL / IJN: [id number] /
[2019-06-04 23:44] LABS: Glucose,Whole Blood 115 mg/dL (75-99)
[2019-06-04] MEDS: HYDROcodone/APAP 10-325MG 1 EACH TAB PO PRN (23:46)
[2019-06-05 05:25] LABS: Anisocytosis Slight; Basophils % (A) 0 %; Eosinophils # (A) 0.1 k/uL (0-0.7); Eosinophils % (A) 1 %; HGB 8.4 gm/dL (11.4-16.0); Hypochromasia Marked; Lymphocytes # (A) 1.1 k/uL (1.0-4.8); Lymphocytes % (A) 9 %; MCH 22.8 pg (25.0-35.0); MCHC 30.2 g/dL (31.0-37.0); MCV 75.5 fL (80.0-100.0); Mean Platelet Volume 9.7; Microcytosis Moderate; Monocytes # (A) 0.3 k/uL (0-1.0); Monocytes % (A) 3 %; Neutrophils # (A) 10.1 k/uL (1.3-7.7); Neutrophils % (A) 86 %; Platelet Count 416 k/uL (150-450); Poikilocytosis Moderate; RBC 3.71 m/uL (3.80-5.40); RDW 18.6 % (11.5-15.5); WBC 11.8 k/uL (3.8-10.6)
[2019-06-05 05:36] LABS: ALT 14 U/L (4-34); AST 19 U/L (14-36); African American GFR (CKD) >90 (>60 ml/min/1.73 sqM); Albumin 2.4 g/dL (3.5-5.0); Alkaline Phosphatase 154 U/L (38-126); Anion Gap 3 mmol/L; Blood Urea Nitrogen 28 mg/dL (7-17); C Reactive Protein 30.9 mg/L (<10.0); Calcium 8.2 mg/dL (8.4-10.2); Carbon Dioxide 24 mmol/L (22-30); Chloride 112 mmol/L (98-107); Creatine Kinase <20 U/L (30-135); Glucose 97 mg/dL (74-99); LDH 2046 U/L (313-618); Non-African American GFR(CKD) >90 (>60 ml/min/1.73 sqM); Potassium 3.6 mmol/L (3.5-5.1); Sodium 139 mmol/L (137-145); Total Bilirubin 0.3 mg/dL (0.2-1.3); Total Protein 4.8 g/dL (6.3-8.2)
[2019-06-05 05:51] LABS: Glucose,Whole Blood 112 mg/dL (75-99)
[2019-06-05] MEDS: INSULIN ASPART (NovoLOG) 100 UNIT/ML VIAL SQ SCH ×3 (05:57→18:37)
[2019-06-05] MEDS ORDERED: POTASSIUM CHLORIDE ER 20 MEQ TAB.ER PO SCH (06:00)
--- NOTE | 2019-06-05 06:59 | XR ---
EXAMINATION TYPE: XR chest 1V portable DATE OF EXAM: 06/05/2019 HISTORY: Tube placement. REFERENCE: Previous study dated 06/04/2019. FINDINGS: The patient has been extubated. The patient is NG tube is been removed. A left subclavian c atheter remains in place. Its tip is at the cavoatrial junction. There is worsening bibasilar airspace disease. The heart is enlarged. There is blunting of both CP an gles. I could not exclude small, bilateral effusions. IMPRESSION: 1. CARDIOMEGALY. 2. WORSENING BIBASILAR AIRSPACE DISEASE. 3. I COULD NOT EXCLUDE SMALL, BILATERAL EFFUSIONS.
[2019-06-05] MEDS: ALBUTEROL HFA INHALER INHALATION PRN ×4 (07:56→20:33)
[2019-06-05] MEDS: methylPREDNISolone SOD SUCCI 40 MG/ML 1 ML VIAL IV SCH (08:10)
[2019-06-05] MEDS: lisinopriL 20 MG TAB PO SCH ×2 (08:10→20:41)
[2019-06-05] MEDS: ZINC SULFATE 220 MG CAP PO SCH (08:11)
[2019-06-05] MEDS: PARoxetine 10 MG TAB PO SCH (08:11)
[2019-06-05] MEDS: PANTOPRAZOLE 40 MG/10 ML VIAL IVP SCH (08:11)
[2019-06-05] MEDS: ASPIRIN 81 MG PO SCH (08:11)
[2019-06-05] MEDS: METOPROLOL TARTRATE 25 MG TAB PO SCH ×2 (08:11→20:41)
[2019-06-05] MEDS: HYDROXYCHLOROQUINE ORAL SUSP 200 MG/8 ML ORAL.SYRG PO SCH ×2 (08:12→20:41)
[2019-06-05] MEDS ORDERED: FUROSEMIDE 10 MG/ML 4 ML VIAL IV STA (09:25)
[2019-06-05] MEDS: ENOXAPARIN 60 MG/0.6 ML SYRINGE SQ SCH ×2 (09:28→20:40)
[2019-06-05] MEDS: CHOLESTYRAMINE (WITH SUGAR) 4 GM PACKET OG-TUBE SCH ×2 (09:29→15:57)
[2019-06-05] MEDS: SODIUM CHLORIDE 0.9% 1,000 ML IV SCH (09:39)
[2019-06-05 11:18] LABS: Ferritin 508.3 ng/mL (10.0-291.0)
[2019-06-05 11:39] LABS: Glucose,Whole Blood 137 mg/dL (75-99)
[2019-06-05] MEDS: ONDANSETRON 4 MG/2 ML VIAL IVP PRN (11:49)
[2019-06-05] MEDS: HYDROcodone/APAP 10-325MG 1 EACH TAB PO PRN ×2 (11:54→20:41)
--- NOTE | 2019-06-05 13:33 | P.PN ---
Subjective Progress Note Date: 06/05/19 Principal diagnosis: Acute hypoxic respiratory failure secondary to covid 19 pneumonitis 78-year-old white female patient with past medical history of hypertension, depression, ex-smoker, who presented to the emergency department on 05/26/2019 for evaluation of nausea for 4 days. Patient has only been able to consume liquids, and has been having vomiting with solid food. She denied fevers, denied cough, denied any chest or abdominal pain, denied any shortness of breath. She was feeling weak, fatigued. Patient was recently diagnosed with a large soft tissue mass involving the posterior right hip that was biopsied a week ago and she is awaiting results. Chest x-ray showed mild peribronchial cuffing, on the basis of possible reactive airway disease, but no focal airspace opacity, pleural effusion with pneumothorax on initial chest x-ray on 05/26/2019. White blood cell count was 5.7, hemoglobin is 10.0, lymphocyte count was 0.5, sodium is 134, potassium is 4.5, chloride is 98, CO2 is 26, B1 is 22, creatinine 0.7, plasma lactic acid was less than 0.5, ferritin was elevated at 524, LDH 1047, troponins were elevated with the first one at 0.418, and trended down to 0.19, pro-calcitonin was 0.39, patient was found to have a urinary tract infection with urine cultures positive for E. coli, she was started on, a Rocephin and Zithromax, her COVID 19 was positive. She was started on Plaquenil and IV steroids, however gradually her oxygenation continued to worsen, and today on 05/31/2019 patient is on 8 L of oxygen, with marginal O2 saturations, she feels very fatigued and weak, and dyspneic. She did have one episode of low-grade fever today, her follow-up blood work showed white blood cell count of 6.5, hemoglobin 9.3, electrolytes are within normal limits, B1 of 25, creatinine 0.71, LDH continuously trending up to 1491. Follow-up chest x-ray today shows a worsening of the known multifocal COVID 19 related pneumonia, most confluent in the right midlung. Patient is dyspnea, her O2 saturations have worsen, blood gas was obtained, showing pO2 57, pCO2 36, pH of 7.42 this was done and FiO2 of 60%. Patient is being transferred to the intensive care unit with orders for intubation and placement on mechanical ventilator by anesthesia services. Patient was reevaluated today on 06/01/19, remains in the unit, patient was intubated and mechanically ventilated yesterday. Her present vent settings are tidal volume is 400 assist control rate is 28 FiO2 is 40% and PEEP is at 12. Her peak airway pressure is 28 and plateau pressures 24. Patient is on fentanyl at 1.5 mcg/kg/h she is also on propofol 50 mcg/kg/m, Nimbex, and IV fluid of 0.9 normal saline at 75 mL per hour. Patient is on tube feeding. Had issues with her urine output yesterday, responded to fluid bolus followed by Lasix. Urine output is about 20-30 mL/h at present. Chest x-ray showed bilateral interstitial airspace disease. Slightly better compared to the one before intubation. ABG showed a pO2 of 93 pCO2 of 36 pH of 7.43. WBC count is 4.6 hemoglobin is 8.2 platelets are 227. Basic metabolic profile is normal. Ferritin however is 952 LDH is 1277 C-reactive protein is 79 d-dimer is 1.01 patient is sedated and paralyzed on mechanical ventilation Reevaluated today on 06/02/19, patient remains in the ICU, intubated, mechanically ventilated. Her ventilator settings are assist control rate of 28 tidal volume of 400 FiO2 is 40% PEEP is at 12. Patient is on propofol at 50 mcg/kg/m, she is on fentanyl at 1.5 mcg/kg/m, not requiring any Nimbex, IV fluid 0.9 normal ritu ine at 75 mL per hour. Patient iscovid 19 positive. Patient is on enteral feeding at 50 mL per hour. ABG showed a pO2 of 97 pCO2 of 39 pH of 7.40. CBC is relatively normal except for hemoglobin of 8.4. D-dimer is 1.02. Electrodes are normal renal profile is normal LDH is 1079, C-reactive protein is 35 ferritin is 766. Chest x-ray showed bilateral infiltrates right more so than left, not much of significant change in the last 24 hours, but definitely not worse. It is actually improved compared to her baseline chest x-ray before intubation Reevaluated today on 06/03/19, patient remains in the ICU, intubated and mechanically ventilated. Ventilator settings are assist control rate of 28, tidal volume is 400, FiO2 is 40%, PEEP is 10 and I cut it down to 8 today. Patient is on fentanyl at 0.5 mcg/kg per hour and propofol at 40 mcg/kg/minute. ABG showed a pO2 of 100 pCO2 of 37 pH of 7.39. Basic metabolic profile is normal. Renal profile is normal. CBC is relatively normal except for hemoglobin of 8. Inflammatory markers today showed C-reactive protein of 26.5 LDH is 02/24/2002 and ferritin is 520. Chest x-ray is showing slight improvement with bibasilar infiltrates compared to baseline. Reevaluated today on 06/04/19, patient remains in the ICU, intubated and mechanically ventilated. Her ventilatory settings are assist control rate of 28 tidal volume is 400 FiO2 is 40% and PEEP is 8. Patient is in the process of having her propofol on hold, and I will most likely recommend pressure support of 8 and CPAP on this patient and repeat her ABG in half an hour or so, may consider weaning the patient and extubating her. Chest x-ray is showing slight improvement but nonetheless continues to show diffuse interstitial infiltrates. Patient was given Lasix 20 mg IV push. And she seems to be awake, she does have thick secretions during suctioning. Her labs today showed a pO2 of 100 pCO2 of 36 pH of 7.35. Her electrolytes in the upper profile are normal CBC is normal. CPAP ABG showed a pO2 of 101 pCO2 of 35 pH of 7.36. Inflammatory markers today showed improvement with her C-reactive protein, LDH, and ferritin. Reevaluated today on 06/05/19, patient remains in the ICU, she was extubated yesterday, continues to tolerate the extubation well, however her chest x-ray shows worsening infiltrates bilaterally. Not reflected on her actual clinical status at present.patient is on 4 L nasal cannula. And her O2 saturation is 95%.denies being short of breath. Her WBC count is 11.8 hemoglobin is 8.4. Electrodes are normal d-dimer is 1.23.markers are elevated including ferritin of 508 LDH is 2046 and C-reactive protein is 30.9. Objective - Vital Signs Vital signs: Vital Signs Temp 98.0 F 06/05/19 12:00 Pulse 78 06/05/19 13:00 Resp 18 06/05/19 13:00 BP 155/102 06/05/19 13:00 Pulse Ox 94 L 06/05/19 13:00 Intake & Output 06/04/19 06/05/19 06/05/19 18:59 06:59 18:59 Intake Total 1180 1425 175 Output Total 4130 3335 1225 Balance -2950 -1910 -1050 Intake: IV 948 975 175 Sodium Chloride 0.9% 1, 900 975 175 000 ml @ 20 mls/hr IV . Q24H [facility] Rx#:[id number] pressure bag 48 Intake, IV Titration 0 Amount Propofol 1,000 mg In 0 Empty Bag 1 bag @ Titrate IV .Q0M [facility] Rx#: [id number] Oral 450 Tube Feeding 132 Other 100 Output: Urine 9350 121 6479 Stool 2200 2550 Other: Voiding Method Indwelling Catheter Indwelling Catheter Indwelling Catheter ABP, PAP, CO, CI - Last Documented Arterial Blood Pressure 160/59 - Exam GENERAL EXAM: Alert, 78-year-old white female, on 5 L nasal cannula, in no distress. Head: Atraumatic, normocephalic. HEENT: PERRLA, EOMI, no icterus. Moist mucous membranes. CHEST: No chest wall deformity. Symmetrical expansion. LUNGS: Fine crackles at the bases bilaterally. persists. CVS: Regular rate and rhythm, normal S1 and S2, no gallops, no murmurs, no rubs ABDOMEN: Soft, nontender. No hepatosplenomegaly, normal bowel sounds, no guarding or rigidity. EXTREMITIES: No clubbing, no edema, no cyanosis, 2+ pulses and upper and lower extremities. MUSCULOSKELETAL: Muscle strength and tone normal. SPINE: No scoliosis or deformity SKIN: No rashes CENTRAL NERVOUS SYSTEM: Awake, oriented 3, no gross focal neurologic deficits. PSYCHIATRIC: Normal mood affect and normal mental status examination. - Labs CBC & Chem 7: 06/05/19 04:40 06/05/19 04:40 Labs: Abnormal Lab Results - Last 24 Hours (Table) 06/04/19 06/04/19 06/05/19 Range/Units 16:48 23:42 04:40 WBC 11.8 H (3.8-10.6) k/uL RBC 3.71 L (3.80-5.40) m/uL Hgb 8.4 L (11.4-16.0) gm/dL Hct 28.0 L (34.0-46.0) % MCV 75.5 L (80.0-100.0) fL MCH 22.8 L (25.0-35.0) pg MCHC 30.2 L (31.0-37.0) g/dL RDW 18.6 H (11.5-15.5) % Neutrophils # 10.1 H (1.3-7.7) k/uL D-Dimer (<0.60) mg/L FEU Chloride (98-107) mmol/L BUN (7-17) mg/dL Creatinine (0.52-1.04) mg/dL POC Glucose (mg/dL) 107 H 115 H (75-99) mg/dL Calcium (8.4-10.2) mg/dL Ferritin (10.0-291.0) ng/mL Alkaline Phosphatase (38-126) U/L Lactate Dehydrogenase (313-618) U/L Creatine Kinase (30-135) U/L C-Reactive Protein (<10.0) mg/L Total Protein (6.3-8.2) g/dL Albumin (3.5-5.0) g/dL 06/05/19 06/05/19 06/05/19 Range/Units 04:40 05:50 11:37 WBC (3.8-10.6) k/uL RBC (3.80-5.40) m/uL Hgb (11.4-16.0) gm/dL Hct (34.0-46.0) % MCV (80.0-100.0) fL MCH (25.0-35.0) pg MCHC (31.0-37.0) g/dL RDW (11.5-15.5) % Neutrophils # (1.3-7.7) k/uL D-Dimer (<0.60) mg/L FEU Chloride 112 H (98-107) mmol/L BUN 28 H (7-17) mg/dL Creatinine 0.42 L (0.52-1.04) mg/dL POC Glucose (mg/dL) 112 H 137 H (75-99) mg/dL Calcium 8.2 L (8.4-10.2) mg/dL Ferritin 508.3 H (10.0-291.0) ng/mL Alkaline Phosphatase 154 H (38-126) U/L Lactate Dehydrogenase 2046 H (313-618) U/L Creatine Kinase <20 L (30-135) U/L C-Reactive Protein 30.9 H (<10.0) mg/L Total Protein 4.8 L (6.3-8.2) g/dL Albumin 2.4 L (3.5-5.0) g/dL 06/05/19 Range/Units 12:20 WBC (3.8-10.6) k/uL RBC (3.80-5.40) m/uL Hgb (11.4-16.0) gm/dL Hct (34.0-46.0) % MCV (80.0-100.0) fL MCH (25.0-35.0) pg MCHC (31.0-37.0) g/dL RDW (11.5-15.5) % Neutrophils # (1.3-7.7) k/uL D-Dimer 1.23 H (<0.60) mg/L FEU Chloride (98-107) mmol/L BUN (7-17) mg/dL Creatinine (0.52-1.04) mg/dL POC Glucose (mg/dL) (75-99) mg/dL Calcium (8.4-10.2) mg/dL Ferritin (10.0-291.0) ng/mL Alkaline Phosphatase (38-126) U/L Lactate Dehydrogenase (313-618) U/L Creatine Kinase (30-135) U/L C-Reactive Protein (<10.0) mg/L Total Protein (6.3-8.2) g/dL Albumin (3.5-5.0) g/dL Microbiology - Last 24 Hours (Table) 06/02/19 04:00 Gram Stain - Final Sputum Sputum Culture - Final Bernadette albicans Assessment and Plan Assessment: Impression: Acute hypoxemic respiratory failure related to acute COVID 19 related pneumonia, requiring intubation and mechanical ventilation. extubated on 06/04/19, seems to be fairly well tolerated so far. However considering her chest x-ray appearance and her markers, I will continue to monitor the patient in the ICU. And she was made aware that she remains relatively critically ill. Acute urinary tract infection, related to E. coliremains on Rocephin. History of hypertension Depression Recent history of large soft tissue mass involving the posterior right hip status post biopsy, results are pending Ex-smoker Recommendation: continue oxygen at 5 L/m via nasal cannula. advanced diet as tolerated. Continue to monitor in the ICU. Added Zithromax 500 mg IV piggyback daily. Continue GI and DVT prophylaxis. Continue antibiotics and hydroxychloroquine. As well as IV Solu-Medrol. Continue to monitor inflammatory markers for covid 19 pneumonitis. we will continue to follow. Time with Patient: Less than 30
[2019-06-05] MEDS: AZITHROMYCIN 500 MG in SODIUM CHLORIDE 0.9% 250 ML IVPB SCH (14:13)
[2019-06-05] MEDS: amLODIPine 5 MG TAB PO SCH ×2 (14:21→20:41)
--- NOTE | 2019-06-05 15:50 | P.PN ---
Subjective Progress Note Date: 06/05/19 Principal diagnosis: COVID pneumonia 78-year-old female with PMH of hypertension presented to the ED for epigastric discomfort and intractable nausea and vomiting. In the ED, she was noted to have an elevated troponin of 0.418 with T-wave inversions on EKG. She was started on aspirin and heparin drip and was admitted for non-ST elevation [place]. On 05/27/2019 she was noted to have spiked a fever thought to be possibly related to UTI or COVID 19 infection. Troponins were trended which went from 0.195-0.190. Her troponins were related to demand ischemia probably from sepsis . Influenza A and B was negative. Urine culture did come back positive for E. coli that was sensitive to Rocephin. COVID testing was subsequently positive. She was initiated on hydroxychloroquine, azithromycin, Rocephin, zinc and vitamin C. Infectious disease was consulted and discontinued her Rocephin and azithromycin. Echocardiogram was done which showed an EF of 55-60%. Her respiratory status worsened and to 05/31/2019. Her oxygen requirements increased from 8 L nasal cannula to 15 L high flow. It was noted that she was DO NOT RESUSCITATE and DO NOT INTUBATE. I had a long conversation with the patient and she was agreeable for intubation. Pulmonology was consulted and she was moved to the ICU for elective intubation. Sedation holiday was attempted on June 01 and June 02. She did have diarrhea for which she was given cholestyramine, C. diff was negative. Patient was extubated on 06/04/2019. She did go into atrial flutter on telemetry on 06/04/2019 for which she was started on therapeutic Lovenox by cardiology. Her Rocephin was started on 06/05/2019 for total of 3 doses to treat UTI. Patient was seen and examined. No acute events overnight. She is on 4 L nasal cannula. Patient complains of some shortness of breath but no other complaints. She denies any chest pain or palpitations. No nausea or vomiting. No fever or chills. Objective - Vital Signs Vital signs: Vital Signs Temp 97.9 F 06/05/19 08:00 Pulse 82 06/05/19 09:00 Resp 33 H 06/05/19 09:00 BP 165/73 06/05/19 09:00 Pulse Ox 95 06/05/19 09:00 Intake & Output 06/04/19 06/05/19 06/05/19 18:59 06:59 18:59 Intake Total 1180 1425 95 Output Total 4130 3335 300 Balance -2949 Intake: IV 948 975 95 Sodium Chloride 0.9% 1, 900 975 95 000 ml @ 20 mls/hr IV . Q24H [facility] Rx#:[id number] pressure bag 48 Intake, IV Titration 0 Amount Propofol 1,000 mg In 0 Empty Bag 1 bag @ Titrate IV .Q0M [facility] Rx#: [id number] Oral 450 Tube Feeding 132 Other 100 Output: Urine 1930 785 300 Stool 2200 2550 Other: Voiding Method Indwelling Catheter Indwelling Catheter Indwelling Catheter ABP, PAP, CO, CI - Last Documented Arterial Blood Pressure 160/59 - Exam General: [non toxic], [appears dyspnea on 4 L nasal cannula], [appears at stated age] Derm: [warm], [dry] Head: [atraumatic], [normocephalic], [symmetric] Eyes: [EOMI], [no lid lag], [anicteric sclera] Mouth: [no lip lesion], [mucus membranes moist] Cardiovascular: [S1S2 reg], [tachycardia], [positive DP pulse bilateral], Lungs: [Coarse breath sounds bilaterally], [no rhonchi, no rales] , [no accessory muscle use] Abdominal: [soft], [ nontender to palpation], [no guarding], [no appreciable organomegaly] Ext: [no gross muscle atrophy], [no edema], [no contractures] Neuro: [no focal neuro deficits] Psych: [Alert], [oriented], [appropriate affect] - Labs CBC & Chem 7: 06/05/19 04:40 06/05/19 04:40 Labs: Abnormal Lab Results - Last 24 Hours (Table) 06/04/19 06/04/19 06/04/19 Range/Units 11:39 16:48 23:42 WBC (3.8-10.6) k/uL RBC (3.80-5.40) m/uL Hgb (11.4-16.0) gm/dL Hct (34.0-46.0) % MCV (80.0-100.0) fL MCH (25.0-35.0) pg MCHC (31.0-37.0) g/dL RDW (11.5-15.5) % Neutrophils # (1.3-7.7) k/uL Chloride (98-107) mmol/L BUN (7-17) mg/dL Creatinine (0.52-1.04) mg/dL POC Glucose (mg/dL) 117 H 107 H 115 H (75-99) mg/dL Calcium (8.4-10.2) mg/dL Ferritin (10.0-291.0) ng/mL Alkaline Phosphatase (38-126) U/L Lactate Dehydrogenase (313-618) U/L Creatine Kinase (30-135) U/L C-Reactive Protein (<10.0) mg/L Total Protein (6.3-8.2) g/dL Albumin (3.5-5.0) g/dL 06/05/19 06/05/19 06/05/19 Range/Units 04:40 04:40 05:50 WBC 11.8 H (3.8-10.6) k/uL RBC 3.71 L (3.80-5.40) m/uL Hgb 8.4 L (11.4-16.0) gm/dL Hct 28.0 L (34.0-46.0) % MCV 75.5 L (80.0-100.0) fL MCH 22.8 L (25.0-35.0) pg MCHC 30.2 L (31.0-37.0) g/dL RDW 18.6 H (11.5-15.5) % Neutrophils # 10.1 H (1.3-7.7) k/uL Chloride 112 H (98-107) mmol/L BUN 28 H (7-17) mg/dL Creatinine 0.42 L (0.52-1.04) mg/dL POC Glucose (mg/dL) 112 H (75-99) mg/dL Calcium 8.2 L (8.4-10.2) mg/dL Ferritin 508.3 H (10.0-291.0) ng/mL Alkaline Phosphatase 154 H (38-126) U/L Lactate Dehydrogenase 2046 H (313-618) U/L Creatine Kinase <20 L (30-135) U/L C-Reactive Protein 30.9 H (<10.0) mg/L Total Protein 4.8 L (6.3-8.2) g/dL Albumin 2.4 L (3.5-5.0) g/dL Microbiology - Last 24 Hours (Table) 06/02/19 04:00 Gram Stain - Final Sputum Sputum Culture - Final Bernadette albicans Assessment and Plan Assessment: Acute hypoxic respiratory failure secondary to COVID 19 pneumonia Atrial flutter Sepsis likely due to COVID 19 along with UTI Hypertension Elevated troponin likely demand ischemia Hip tumor Patient was extubated on 06/04/2019. Plans: She has completed a course of azithromycin for concerns of acute bronchitis. Completed course of hydroxychloroquine for COVID infection. Also on zinc. Plans to repeat chest x- ray tomorrow morning. Follow d-dimer (slightly elevated), ferritin (decreasing), LDH (slightly increasing), CRP (decreasing). Infectious disease following. As seen on telemetry. Plans: Started on therapeutic Lovenox. Maintain potassium greater than 4 and magnesium greater than 2. Follow cardiology recommendations. Telemetry monitoring. Continue metoprolol. Plans: Management as above. Will restart Rocephin for 3 days as it appears the patient was not treated for her UTI. BP 165/73. Plans: Continue lisinopril and metoprolol. Monitor vitals, adjust medications as necessary. Her troponins are flat. Troponin 0.48, 0.195, 0.190. Likely demand ischemia from sepsis. Echocardiogram with no wall motion abnormalities. Plans: Cardiology evaluated, nothing further to do. Plans: Adequate pain management. [Patient extubated. Stable. Progressing well. Pulmonology on board. Infectious disease following. Being treated for UTI and COVID 19 infection.]
[2019-06-05] MEDS: TRIMETHOBENZAMIDE 300 MG CAP PO SCH ×2 (16:47→20:41)
[2019-06-05 18:01] LABS: Glucose,Whole Blood 113 mg/dL (75-99)
--- NOTE | 2019-06-05 19:05 | PN ---
PROGRESS NOTE DATE OF SERVICE: 06/05/2019 REASON FOR FOLLOWUP: Acute COVID-19 infection. INTERVAL HISTORY: The patient is currently afebrile. The patient is breathing slightly comfortably. She has been complaining of significant nausea. No vomiting has been reported. Still having diarrhea but no worsening. No chest pain or shortness of breath. Occasional cough. PHYSICAL EXAMINATION: Blood pressure 137/80 with a pulse of 90, temperature 98. She is 94% on 2 L nasal cannula. General description is an elderly female lying in bed in no distress. Respiratory system: Unlabored breathing. Clear to auscultation anteriorly. Heart S1, S2. Regular rate and rhythm. ABDOMEN: Soft. No tenderness. LABS: Hemoglobin is 8.4, white count 11.8, BUN of 28, creatinine 0.42 and LDH up to 2045. DIAGNOSTIC IMPRESSION AND PLAN: Patient with acute COVID-19 pneumonia. The patient has been extubated. Some worsening of inflammatory marker, Zithromax and Plaquenil will be started with added Zofran will be switched over to Tigan to decrease the QT prolonging agent and monitor clinical course closely. MMODL / IJN: [id number] /
[2019-06-06 02:35] LABS: Glucose,Whole Blood 115 mg/dL (75-99)
[2019-06-06] MEDS: INSULIN ASPART (NovoLOG) 100 UNIT/ML VIAL SQ SCH ×5 (02:37→20:35)
[2019-06-06 05:19] LABS: ALT 12 U/L (4-34); AST 14 U/L (14-36); African American GFR (CKD) >90 (>60 ml/min/1.73 sqM); Albumin 2.4 g/dL (3.5-5.0); Alkaline Phosphatase 146 U/L (38-126); Anion Gap 3 mmol/L; Blood Urea Nitrogen 19 mg/dL (7-17); C Reactive Protein 38.9 mg/L (<10.0); Calcium 8.2 mg/dL (8.4-10.2); Carbon Dioxide 28 mmol/L (22-30); Chloride 104 mmol/L (98-107); Creatine Kinase <20 U/L (30-135); Glucose 100 mg/dL (74-99); LDH 1505 U/L (313-618); Non-African American GFR(CKD) >90 (>60 ml/min/1.73 sqM); Potassium 3.1 mmol/L (3.5-5.1); Sodium 135 mmol/L (137-145); Total Bilirubin 0.4 mg/dL (0.2-1.3); Total Protein 4.8 g/dL (6.3-8.2)
[2019-06-06 05:24] LABS: Anisocytosis Slight; Basophils # (A) 0.1 k/uL (0-0.2); Basophils % (A) 0 %; Eosinophils # (A) 0.1 k/uL (0-0.7); Eosinophils % (A) 1 %; HCT 32.2 % (34.0-46.0); HGB 9.8 gm/dL (11.4-16.0); Hypochromasia Marked; Lymphocytes % (A) 7 %; MCH 23.3 pg (25.0-35.0); MCHC 30.4 g/dL (31.0-37.0); MCV 76.7 fL (80.0-100.0); Mean Platelet Volume 9.8; Microcytosis Slight; Monocytes # (A) 0.5 k/uL (0-1.0); Monocytes % (A) 4 %; Neutrophils # (A) 12.2 k/uL (1.3-7.7); Neutrophils % (A) 87 %; Platelet Count 504 k/uL (150-450); Poikilocytosis Moderate; RDW 19.3 % (11.5-15.5)
[2019-06-06] MEDS: POTASSIUM CHLORIDE 10 MEQ in WATER FOR INJECTION 1 100ML.BAG IVPB SCH ×2 (06:08→07:16)
[2019-06-06 06:16] LABS: Glucose,Whole Blood 103 mg/dL (75-99)
--- NOTE | 2019-06-06 07:00 | XR ---
EXAMINATION TYPE: XR chest 1V portable DATE OF EXAM: 06/06/2019 HISTORY: Tube placement. REFERENCE: Previous study dated 06/05/2019. FINDINGS: Left subclavian catheter remains in place. Its tip is at the cavoatrial junction. The heart is enlarged. There is patchy, bilateral airspace disease. There may be slight improvement i n the aeration of the right lung. Both CP angles are blunted. I could not exclude small effusions. IMPRESSION: THERE MAY BE SLIGHT IMPROVEMENT IN THE DEGREE OF AERATION OF THE RIGHT LUNG.
[2019-06-06] MEDS: ENOXAPARIN 60 MG/0.6 ML SYRINGE SQ SCH ×2 (08:53→20:34)
[2019-06-06] MEDS: methylPREDNISolone SOD SUCCI 40 MG/ML 1 ML VIAL IV SCH (08:55)
[2019-06-06] MEDS: lisinopriL 20 MG TAB PO SCH ×2 (08:56→20:35)
[2019-06-06] MEDS: METOPROLOL TARTRATE 25 MG TAB PO SCH ×2 (08:56→20:35)
[2019-06-06] MEDS: ASPIRIN 81 MG PO SCH (08:56)
[2019-06-06] MEDS: PANTOPRAZOLE 40 MG/10 ML VIAL IVP SCH (08:56)
[2019-06-06] MEDS: amLODIPine 5 MG TAB PO SCH ×2 (08:56→20:35)
[2019-06-06] MEDS: AZITHROMYCIN 500 MG in SODIUM CHLORIDE 0.9% 250 ML IVPB SCH (08:57)
[2019-06-06] MEDS: CHOLESTYRAMINE (WITH SUGAR) 4 GM PACKET OG-TUBE SCH ×2 (08:59→18:17)
[2019-06-06] MEDS: TRIMETHOBENZAMIDE 300 MG CAP PO SCH ×3 (08:59→20:35)
[2019-06-06] MEDS: ZINC SULFATE 220 MG CAP PO SCH (08:59)
[2019-06-06] MEDS: PARoxetine 10 MG TAB PO SCH (09:00)
[2019-06-06] MEDS: HYDROXYCHLOROQUINE ORAL SUSP 200 MG/8 ML ORAL.SYRG PO SCH ×2 (09:01→20:35)
[2019-06-06] MEDS: SODIUM CHLORIDE 0.9% 1,000 ML IV SCH (09:02)
[2019-06-06] MEDS ORDERED: FUROSEMIDE 10 MG/ML 4 ML VIAL IV STA (09:42)
[2019-06-06 10:01] LABS: Glucose,Whole Blood 88 mg/dL (75-99)
[2019-06-06] MEDS: ALBUTEROL HFA INHALER INHALATION PRN ×3 (11:21→20:01)
[2019-06-06 11:58] LABS: Glucose,Whole Blood 117 mg/dL (75-99)
--- NOTE | 2019-06-06 12:40 | P.PN ---
Subjective Progress Note Date: 06/06/19 Principal diagnosis: Acute hypoxic respiratory failure secondary to covid 19 pneumonitis 78-year-old white female patient with past medical history of hypertension, depression, ex-smoker, who presented to the emergency department on 05/26/2019 for evaluation of nausea for 4 days. Patient has only been able to consume liquids, and has been having vomiting with solid food. She denied fevers, denied cough, denied any chest or abdominal pain, denied any shortness of breath. She was feeling weak, fatigued. Patient was recently diagnosed with a large soft tissue mass involving the posterior right hip that was biopsied a week ago and she is awaiting results. Chest x-ray showed mild peribronchial cuffing, on the basis of possible reactive airway disease, but no focal airspace opacity, pleural effusion with pneumothorax on initial chest x-ray on 05/26/2019. White blood cell count was 5.7, hemoglobin is 10.0, lymphocyte count was 0.5, sodium is 134, potassium is 4.5, chloride is 98, CO2 is 26, B1 is 22, creatinine 0.7, plasma lactic acid was less than 0.5, ferritin was elevated at 524, LDH 1047, troponins were elevated with the first one at 0.418, and trended down to 0.19, pro-calcitonin was 0.39, patient was found to have a urinary tract infection with urine cultures positive for E. coli, she was started on, a Rocephin and Zithromax, her COVID 19 was positive. She was started on Plaquenil and IV steroids, however gradually her oxygenation continued to worsen, and today on 05/31/2019 patient is on 8 L of oxygen, with marginal O2 saturations, she feels very fatigued and weak, and dyspneic. She did have one episode of low-grade fever today, her follow-up blood work showed white blood cell count of 6.5, hemoglobin 9.3, electrolytes are within normal limits, B1 of 25, creatinine 0.71, LDH continuously trending up to 1491. Follow-up chest x-ray today shows a worsening of the known multifocal COVID 19 related pneumonia, most confluent in the right midlung. Patient is dyspnea, her O2 saturations have worsen, blood gas was obtained, showing pO2 57, pCO2 36, pH of 7.42 this was done and FiO2 of 60%. Patient is being transferred to the intensive care unit with orders for intubation and placement on mechanical ventilator by anesthesia services. Patient was reevaluated today on 06/01/19, remains in the unit, patient was intubated and mechanically ventilated yesterday. Her present vent settings are tidal volume is 400 assist control rate is 28 FiO2 is 40% and PEEP is at 12. Her peak airway pressure is 28 and plateau pressures 24. Patient is on fentanyl at 1.5 mcg/kg/h she is also on propofol 50 mcg/kg/m, Nimbex, and IV fluid of 0.9 normal saline at 75 mL per hour. Patient is on tube feeding. Had issues with her urine output yesterday, responded to fluid bolus followed by Lasix. Urine output is about 20-30 mL/h at present. Chest x-ray showed bilateral interstitial airspace disease. Slightly better compared to the one before intubation. ABG showed a pO2 of 93 pCO2 of 36 pH of 7.43. WBC count is 4.6 hemoglobin is 8.2 platelets are 227. Basic metabolic profile is normal. Ferritin however is 952 LDH is 1277 C-reactive protein is 79 d-dimer is 1.01 patient is sedated and paralyzed on mechanical ventilation Reevaluated today on 06/02/19, patient remains in the ICU, intubated, mechanically ventilated. Her ventilator settings are assist control rate of 28 tidal volume of 400 FiO2 is 40% PEEP is at 12. Patient is on propofol at 50 mcg/kg/m, she is on fentanyl at 1.5 mcg/kg/m, not requiring any Nimbex, IV fluid 0.9 normal ritu ine at 75 mL per hour. Patient iscovid 19 positive. Patient is on enteral feeding at 50 mL per hour. ABG showed a pO2 of 97 pCO2 of 39 pH of 7.40. CBC is relatively normal except for hemoglobin of 8.4. D-dimer is 1.02. Electrodes are normal renal profile is normal LDH is 1079, C-reactive protein is 35 ferritin is 766. Chest x-ray showed bilateral infiltrates right more so than left, not much of significant change in the last 24 hours, but definitely not worse. It is actually improved compared to her baseline chest x-ray before intubation Reevaluated today on 06/03/19, patient remains in the ICU, intubated and mechanically ventilated. Ventilator settings are assist control rate of 28, tidal volume is 400, FiO2 is 40%, PEEP is 10 and I cut it down to 8 today. Patient is on fentanyl at 0.5 mcg/kg per hour and propofol at 40 mcg/kg/minute. ABG showed a pO2 of 100 pCO2 of 37 pH of 7.39. Basic metabolic profile is normal. Renal profile is normal. CBC is relatively normal except for hemoglobin of 8. Inflammatory markers today showed C-reactive protein of 26.5 LDH is 02/24/2002 and ferritin is 520. Chest x-ray is showing slight improvement with bibasilar infiltrates compared to baseline. Reevaluated today on 06/04/19, patient remains in the ICU, intubated and mechanically ventilated. Her ventilatory settings are assist control rate of 28 tidal volume is 400 FiO2 is 40% and PEEP is 8. Patient is in the process of having her propofol on hold, and I will most likely recommend pressure support of 8 and CPAP on this patient and repeat her ABG in half an hour or so, may consider weaning the patient and extubating her. Chest x-ray is showing slight improvement but nonetheless continues to show diffuse interstitial infiltrates. Patient was given Lasix 20 mg IV push. And she seems to be awake, she does have thick secretions during suctioning. Her labs today showed a pO2 of 100 pCO2 of 36 pH of 7.35. Her electrolytes in the upper profile are normal CBC is normal. CPAP ABG showed a pO2 of 101 pCO2 of 35 pH of 7.36. Inflammatory markers today showed improvement with her C-reactive protein, LDH, and ferritin. Reevaluated today on 06/05/19, patient remains in the ICU, she was extubated yesterday, continues to tolerate the extubation well, however her chest x-ray shows worsening infiltrates bilaterally. Not reflected on her actual clinical status at present.patient is on 4 L nasal cannula. And her O2 saturation is 95%.denies being short of breath. Her WBC count is 11.8 hemoglobin is 8.4. Electrodes are normal d-dimer is 1.23.markers are elevated including ferritin of 508 LDH is 2046 and C-reactive protein is 30.9. Patient was reevaluated today on 06/06/19, patient was extubated on 06/04/19, however her overall pulmonary status remains marginal. Patient is relatively asymptomatic, however her chest x-ray seems to be quite concerning to me. Wor sening infiltrates noted bilaterally. And her O2 saturation is 92% on 5 L. Patient is hemodynamically stable, relatively asymptomatic. Denies any cough wheezing or shortness of breath. WBC count is 14 hemoglobin is 9.8 and advised are normal except for low potassium being corrected as per protocol. Objective - Vital Signs Vital signs: Vital Signs Temp 98.1 F 06/06/19 08:00 Pulse 75 06/06/19 10:00 Resp 31 H 06/06/19 10:00 BP 156/69 06/06/19 10:00 Pulse Ox 92 L 06/06/19 10:00 Intake & Output 06/05/19 06/06/19 06/06/19 18:59 06:59 18:59 Intake Total 275 950 620 Output Total 1700 790 825 Balance -1425 160 -205 Intake: IV 275 240 80 Sodium Chloride 0.9% 1, 275 240 80 000 ml @ 20 mls/hr IV . Q24H [facility] Rx#:[id number] Intake, IV Titration 300 Amount Azithromycin 500 mg In 250 Sodium Chloride 0.9% 250 ml @ 250 mls/hr IVPB DAILY [facility] Rx#:[id number] cefTRIAXone 1 gm In 50 Sodium Chloride 0.9% 50 ml @ 100 mls/hr IVPB Q24HR [facility] Rx#:[id number] Oral 710 240 Output: Urine 1700 790 825 Other: Voiding Method Indwelling Catheter Indwelling Catheter Indwelling Catheter ABP, PAP, CO, CI - Last Documented Arterial Blood Pressure 160/59 - Exam GENERAL EXAM: Alert, 78-year-old white female, on 5 L nasal cannula, in no distress. Asymptomatic. Head: Atraumatic, normocephalic. HEENT: PERRLA, EOMI, no icterus. Moist mucous membranes. CHEST: No chest wall deformity. Symmetrical expansion. LUNGS: Fine crackles at the bases bilaterally. persists. CVS: Regular rate and rhythm, normal S1 and S2, no gallops, no murmurs, no rubs ABDOMEN: Soft, nontender. No hepatosplenomegaly, normal bowel sounds, no guarding or rigidity. EXTREMITIES: No clubbing, no edema, no cyanosis, 2+ pulses and upper and lower extremities. MUSCULOSKELETAL: Muscle strength and tone normal. SPINE: No scoliosis or deformity SKIN: No rashes CENTRAL NERVOUS SYSTEM: Awake, oriented 3, no gross focal neurologic deficits. PSYCHIATRIC: Normal mood affect and normal mental status examination. - Labs CBC & Chem 7: 06/06/19 04:30 06/06/19 04:30 Labs: Abnormal Lab Results - Last 24 Hours (Table) 06/05/19 06/05/19 06/06/19 Range/Units 12:20 18:00 02:23 WBC (3.8-10.6) k/uL Hgb (11.4-16.0) gm/dL Hct (34.0-46.0) % MCV (80.0-100.0) fL MCH (25.0-35.0) pg MCHC (31.0-37.0) g/dL RDW (11.5-15.5) % Plt Count (150-450) k/uL Neutrophils # (1.3-7.7) k/uL D-Dimer 1.23 H (<0.60) mg/L FEU Sodium (137-145) mmol/L Potassium (3.5-5.1) mmol/L BUN (7-17) mg/dL Creatinine (0.52-1.04) mg/dL Glucose (74-99) mg/dL POC Glucose (mg/dL) 113 H 115 H (75-99) mg/dL Calcium (8.4-10.2) mg/dL Alkaline Phosphatase (38-126) U/L Lactate Dehydrogenase (313-618) U/L Creatine Kinase (30-135) U/L C-Reactive Protein (<10.0) mg/L Total Protein (6.3-8.2) g/dL Albumin (3.5-5.0) g/dL 06/06/19 06/06/19 06/06/19 Range/Units 04:30 04:30 06:13 WBC 14.0 H (3.8-10.6) k/uL Hgb 9.8 L (11.4-16.0) gm/dL Hct 32.2 L (34.0-46.0) % MCV 76.7 L (80.0-100.0) fL MCH 23.3 L (25.0-35.0) pg MCHC 30.4 L (31.0-37.0) g/dL RDW 19.3 H (11.5-15.5) % Plt Count 504 H (150-450) k/uL Neutrophils # 12.2 H (1.3-7.7) k/uL D-Dimer (<0.60) mg/L FEU Sodium 135 L (137-145) mmol/L Potassium 3.1 L (3.5-5.1) mmol/L BUN 19 H (7-17) mg/dL Creatinine 0.41 L (0.52-1.04) mg/dL Glucose 100 H (74-99) mg/dL POC Glucose (mg/dL) 103 H (75-99) mg/dL Calcium 8.2 L (8.4-10.2) mg/dL Alkaline Phosphatase 146 H (38-126) U/L Lactate Dehydrogenase 1505 H (313-618) U/L Creatine Kinase <20 L (30-135) U/L C-Reactive Protein 38.9 H (<10.0) mg/L Total Protein 4.8 L (6.3-8.2) g/dL Albumin 2.4 L (3.5-5.0) g/dL 06/06/19 Range/Units 11:56 WBC (3.8-10.6) k/uL Hgb (11.4-16.0) gm/dL Hct (34.0-46.0) % MCV (80.0-100.0) fL MCH (25.0-35.0) pg MCHC (31.0-37.0) g/dL RDW (11.5-15.5) % Plt Count (150-450) k/uL Neutrophils # (1.3-7.7) k/uL D-Dimer (<0.60) mg/L FEU Sodium (137-145) mmol/L Potassium (3.5-5.1) mmol/L BUN (7-17) mg/dL Creatinine (0.52-1.04) mg/dL Glucose (74-99) mg/dL POC Glucose (mg/dL) 117 H (75-99) mg/dL Calcium (8.4-10.2) mg/dL Alkaline Phosphatase (38-126) U/L Lactate Dehydrogenase (313-618) U/L Creatine Kinase (30-135) U/L C-Reactive Protein (<10.0) mg/L Total Protein (6.3-8.2) g/dL Albumin (3.5-5.0) g/dL Assessment and Plan Assessment: Impression: Acute hypoxemic respiratory failure related to acute COVID 19 related pneumonia, requiring intubation and mechanical ventilation. extubated on 06/04/19, seems to be fairly well tolerated so far. Chest x-ray remains a bit concerning to me. Hence I would recommend that we keep her in the ICU for the next 24 hours Acute urinary tract infection, related to E. coli remains on Rocephin. History of hypertension Depression Recent history of large soft tissue mass involving the posterior right hip status post biopsy, results are pending Ex-smoker Recommendation: continue oxygen at 5 L/m via nasal cannula. Titrate accordingly. Trial of diuresis, Lasix 40 mg IV push was recommended Regular diet. Continue to monitor in the ICU. Continue Zithromax 500 mg IV piggyback daily. Continue GI and DVT prophylaxis. Continue antibiotics and hydroxychloroquine. As well as IV Solu-Medrol. Continue to monitor inflammatory markers for covid 19 pneumonitis. we will continue to follow. Time with Patient: Less than 30
--- NOTE | 2019-06-06 14:44 | P.PN ---
Subjective Progress Note Date: 06/06/19 Principal diagnosis: COVID pneumonia 78-year-old female with PMH of hypertension presented to the ED for epigastric discomfort and intractable nausea and vomiting. In the ED, she was noted to have an elevated troponin of 0.418 with T-wave inversions on EKG. She was started on aspirin and heparin drip and was admitted for non-ST elevation [place]. On 05/27/2019 she was noted to have spiked a fever thought to be possibly related to UTI or COVID 19 infection. Troponins were trended which went from 0.195-0.190. Her troponins were related to demand ischemia probably from sepsis . Influenza A and B was negative. Urine culture did come back positive for E. coli that was sensitive to Rocephin. COVID testing was subsequently positive. She was initiated on hydroxychloroquine, azithromycin, Rocephin, zinc and vitamin C. Infectious disease was consulted and discontinued her Rocephin and azithromycin. Echocardiogram was done which showed an EF of 55-60%. Her respiratory status worsened and to 05/31/2019. Her oxygen requirements increased from 8 L nasal cannula to 15 L high flow. It was noted that she was DO NOT RESUSCITATE and DO NOT INTUBATE. I had a long conversation with the patient and she was agreeable for intubation. Pulmonology was consulted and she was moved to the ICU for elective intubation. Sedation holiday was attempted on June 01 and June 02. She did have diarrhea for which she was given cholestyramine, C. diff was negative. Patient was extubated on 06/04/2019. She did go into atrial flutter on telemetry on 06/04/2019 for which she was started on therapeutic Lovenox by cardiology. Her Rocephin was started on 06/05/2019 for total of 3 doses to treat UTI. Her respiratory status continues to be borderline on 4-5L NC into 06/06/2019. Patient was seen and examined. No acute events overnight. She is on 5 L nasal cannula. Patient complains of some shortness of breath but no other complaints. She denies any chest pain or palpitations. No nausea or vomiting. No fever or chills. Potassium is 3.1 which will be replaced. Chest x-ray showing worsening infiltrates. Objective - Vital Signs Vital signs: Vital Signs Temp 97.6 F 06/06/19 12:00 Pulse 82 06/06/19 14:00 Resp 28 H 06/06/19 14:00 BP 136/65 06/06/19 14:00 Pulse Ox 93 L 06/06/19 14:00 Intake & Output 06/05/19 06/06/19 06/06/19 18:59 06:59 18:59 Intake Total 275 950 920 Output Total 9351 900 8691 Balance -1425 160 -930 Weight 73.936 kg Intake: IV 275 240 140 Sodium Chloride 0.9% 1, 275 240 140 000 ml @ 20 mls/hr IV . Q24H [facility] Rx#:[id number] Intake, IV Titration 300 Amount Azithromycin 500 mg In 250 Sodium Chloride 0.9% 250 ml @ 250 mls/hr IVPB DAILY [facility] Rx#:[id number] cefTRIAXone 1 gm In 50 Sodium Chloride 0.9% 50 ml @ 100 mls/hr IVPB Q24HR [facility] Rx#:[id number] Oral 710 480 Output: Urine 1237 450 8384 Other: Voiding Method Indwelling Catheter Indwelling Catheter Indwelling Catheter ABP, PAP, CO, CI - Last Documented Arterial Blood Pressure 160/59 - Exam General: [non toxic], [appears dyspnic on 5 L nasal cannula], [appears at stated age] Derm: [warm], [dry] Head: [atraumatic], [normocephalic], [symmetric] Eyes: [EOMI], [no lid lag], [anicteric sclera] Mouth: [no lip lesion], [mucus membranes moist] Cardiovascular: [S1S2 reg], [tachycardia], [positive DP pulse bilateral], Lungs: [Coarse breath sounds bilaterally], [no rhonchi, no rales] , [no accessory muscle use] Abdominal: [soft], [ nontender to palpation], [no guarding], [no appreciable organomegaly] Ext: [no gross muscle atrophy], [no edema], [no contractures] Neuro: [no focal neuro deficits] Psych: [Alert], [oriented], [appropriate affect] - Labs CBC & Chem 7: 06/06/19 04:30 06/06/19 04:30 Labs: Abnormal Lab Results - Last 24 Hours (Table) 06/05/19 06/06/19 06/06/19 Range/Units 18:00 02:23 04:30 WBC 14.0 H (3.8-10.6) k/uL Hgb 9.8 L (11.4-16.0) gm/dL Hct 32.2 L (34.0-46.0) % MCV 76.7 L (80.0-100.0) fL MCH 23.3 L (25.0-35.0) pg MCHC 30.4 L (31.0-37.0) g/dL RDW 19.3 H (11.5-15.5) % Plt Count 504 H (150-450) k/uL Neutrophils # 12.2 H (1.3-7.7) k/uL Sodium (137-145) mmol/L Potassium (3.5-5.1) mmol/L BUN (7-17) mg/dL Creatinine (0.52-1.04) mg/dL Glucose (74-99) mg/dL POC Glucose (mg/dL) 113 H 115 H (75-99) mg/dL Calcium (8.4-10.2) mg/dL Alkaline Phosphatase (38-126) U/L Lactate Dehydrogenase (313-618) U/L Creatine Kinase (30-135) U/L C-Reactive Protein (<10.0) mg/L Total Protein (6.3-8.2) g/dL Albumin (3.5-5.0) g/dL 06/06/19 06/06/19 06/06/19 Range/Units 04:30 06:13 11:56 WBC (3.8-10.6) k/uL Hgb (11.4-16.0) gm/dL Hct (34.0-46.0) % MCV (80.0-100.0) fL MCH (25.0-35.0) pg MCHC (31.0-37.0) g/dL RDW (11.5-15.5) % Plt Count (150-450) k/uL Neutrophils # (1.3-7.7) k/uL Sodium 135 L (137-145) mmol/L Potassium 3.1 L (3.5-5.1) mmol/L BUN 19 H (7-17) mg/dL Creatinine 0.41 L (0.52-1.04) mg/dL Glucose 100 H (74-99) mg/dL POC Glucose (mg/dL) 103 H 117 H (75-99) mg/dL Calcium 8.2 L (8.4-10.2) mg/dL Alkaline Phosphatase 146 H (38-126) U/L Lactate Dehydrogenase 1505 H (313-618) U/L Creatine Kinase <20 L (30-135) U/L C-Reactive Protein 38.9 H (<10.0) mg/L Total Protein 4.8 L (6.3-8.2) g/dL Albumin 2.4 L (3.5-5.0) g/dL Assessment and Plan Assessment: Acute hypoxic respiratory failure secondary to COVID 19 pneumonia Hypokalemia Atrial flutter Sepsis likely due to COVID 19 along with UTI Hypertension Elevated troponin likely demand ischemia Hip tumor Patient was extubated on 06/04/2019. Plans: She has completed a course of azithromycin for concerns of acute bronchitis. Completed course of hydroxychloroquine for COVID infection. Also on zinc. Plans to repeat chest x- ray tomorrow morning. Follow d-dimer (slightly elevated), ferritin (slight increase), LDH (decreasing), CRP (increasing). Infectious disease following. Potassium 3.1. Plans: Replaced via protocol. Repeat BMP tomorrow morning. As seen on telemetry. Plans: Started on therapeutic Lovenox. Maintain potassium greater than 4 and magnesium greater than 2. Follow cardiology recommendations. Telemetry monitoring. Continue metoprolol. Plans: Management as above. Will restart Rocephin for 3 days as it appears the patient was not treated for her UTI. BP 136/65. Plans: Continue lisinopril and metoprolol. Monitor vitals, adjust medications as necessary. Her troponins are flat. Troponin 0.48, 0.195, 0.190. Likely demand ischemia from sepsis. Echocardiogram with no wall motion abnormalities. Plans: Cardiology evaluated, nothing further to do. Plans: Adequate pain management. [Patient extubated. Progress is marginal on 4-5L NC. CXR worsening. Pulmonology on board. Infectious disease following. Being treated for UTI and COVID 19 infection. Low threshold for re-intubation.]
[2019-06-06] MEDS: POTASSIUM CHLORIDE 20 MEQ in WATER FOR INJECTION 1 100ML.BAG IVPB SCH ×2 (16:08→18:16)
[2019-06-06 17:12] LABS: Glucose,Whole Blood 122 mg/dL (75-99)
[2019-06-06 20:33] LABS: Glucose,Whole Blood 104 mg/dL (75-99)
[2019-06-06] MEDS: HYDROcodone/APAP 10-325MG 1 EACH TAB PO PRN (20:36)
--- NOTE | 2019-06-06 22:19 | PN ---
PROGRESS NOTE DATE OF SERVICE: 06/06/2019 REASON FOR FOLLOWUP: Acute COVID-19 pneumonia. INTERVAL HISTORY: The patient is currently afebrile. She is breathing comfortably on nasal cannula oxygen. Denies having any chest pain. Nausea has improved. No abdominal pain and no diarrhea. PHYSICAL EXAMINATION: Blood pressure 142/64 with a pulse of 79, temperature 98. She is 92% on 5 L nasal cannula. General description is an elderly female lying in bed in no distress. Respiratory system: Unlabored breathing with decreased breath sounds in the base. No wheeze. Heart: S1, S2. Regular rate and rhythm. Abdomen soft, no tenderness. LABS: Hemoglobin 9.8, white count 64177, BUN of 19, creatinine 0.41. DIAGNOSTIC IMPRESSION AND PLAN: Patient with acute COVID-19 pneumonia. The patient seems to have shown clinical improvement as well as improvement on the chest x-ray. She will continue with current therapy. Currently on Zithromax, Solu-Medrol, zinc, and has completed her Plaquenil therapy. Will monitor clinical course closely. PRAKASH / WILFREDON: [id number] /
[2019-06-07 05:22] LABS: Anisocytosis Slight; HGB 10.3 gm/dL (11.4-16.0); Hypochromasia Marked; MCH 23.3 pg (25.0-35.0); MCHC 31.3 g/dL (31.0-37.0); MCV 74.5 fL (80.0-100.0); Microcytosis Moderate; Platelet Count 601 k/uL (150-450); Poikilocytosis Moderate; RBC 4.43 m/uL (3.80-5.40); RDW 19.9 % (11.5-15.5); WBC 16.7 k/uL (3.8-10.6)
[2019-06-07 05:31] LABS: ALT 15 U/L (4-34); AST 20 U/L (14-36); African American GFR (CKD) >90 (>60 ml/min/1.73 sqM); Albumin 2.7 g/dL (3.5-5.0); Alkaline Phosphatase 162 U/L (38-126); Anion Gap 8 mmol/L; Blood Urea Nitrogen 18 mg/dL (7-17); C Reactive Protein 68.8 mg/L (<10.0); Calcium 8.4 mg/dL (8.4-10.2); Carbon Dioxide 26 mmol/L (22-30); Chloride 98 mmol/L (98-107); Creatine Kinase <20 U/L (30-135); Glucose 78 mg/dL (74-99); LDH 2141 U/L (313-618); Non-African American GFR(CKD) >90 (>60 ml/min/1.73 sqM); Potassium 3.5 mmol/L (3.5-5.1); Sodium 132 mmol/L (137-145); Total Bilirubin 0.7 mg/dL (0.2-1.3); Total Protein 5.2 g/dL (6.3-8.2)
[2019-06-07 07:20] LABS: Glucose,Whole Blood 104 mg/dL (75-99)
[2019-06-07] MEDS: INSULIN ASPART (NovoLOG) 100 UNIT/ML VIAL SQ SCH ×4 (07:20→21:18)
[2019-06-07] MEDS: lisinopriL 20 MG TAB PO SCH ×2 (08:12→20:55)
[2019-06-07] MEDS: METOPROLOL TARTRATE 25 MG TAB PO SCH ×2 (08:13→20:55)
[2019-06-07] MEDS: ASPIRIN 81 MG PO SCH (08:13)
[2019-06-07] MEDS: PANTOPRAZOLE 40 MG/10 ML VIAL IVP SCH (08:13)
[2019-06-07] MEDS: methylPREDNISolone SOD SUCCI 40 MG/ML 1 ML VIAL IV SCH (08:13)
[2019-06-07] MEDS: AZITHROMYCIN 500 MG in SODIUM CHLORIDE 0.9% 250 ML IVPB SCH (08:14)
[2019-06-07] MEDS: PARoxetine 10 MG TAB PO SCH (08:25)
[2019-06-07] MEDS: TRIMETHOBENZAMIDE 300 MG CAP PO SCH ×3 (08:25→20:55)
[2019-06-07] MEDS: ENOXAPARIN 60 MG/0.6 ML SYRINGE SQ SCH ×2 (08:25→20:55)
[2019-06-07] MEDS: ZINC SULFATE 220 MG CAP PO SCH (08:25)
[2019-06-07] MEDS: CHOLESTYRAMINE (WITH SUGAR) 4 GM PACKET OG-TUBE SCH ×2 (08:26→17:30)
[2019-06-07] MEDS: SODIUM CHLORIDE 0.9% 1,000 ML IV SCH (08:26)
[2019-06-07] MEDS: amLODIPine 5 MG TAB PO SCH ×2 (08:27→20:55)
[2019-06-07] MEDS: POTASSIUM CHLORIDE ER 20 MEQ TAB.ER PO SCH ×2 (08:35→11:10)
[2019-06-07 10:39] LABS: Ferritin 519.1 ng/mL (10.0-291.0)
--- NOTE | 2019-06-07 10:50 | XR ---
EXAMINATION TYPE: XR chest 1V portable DATE OF EXAM: 06/07/2019 HISTORY: Shortness of breath. COMPARISON: 06/06/2019 TECHNIQUE: Single view of the chest is submitted. FINDINGS: Scattered interstitial and alveolar infiltrates persist without significant interval change. Left-sided subclavian central venous line unchanged in position. The heart is stable. Hilar and mediastinal structures are within normal limits. Degenerative changes are seen of the dorsal spine. IMPRESSION: 1. Scattered interstitial and alveolar infiltrates persist without significant interval change.
[2019-06-07 11:59] LABS: Glucose,Whole Blood 165 mg/dL (75-99)
--- NOTE | 2019-06-07 12:16 | P.PN ---
Subjective Progress Note Date: 06/07/19 Principal diagnosis: 78-year-old female with PMH of hypertension presented to the ED for epigastric discomfort and intractable nausea and vomiting. In the ED, she was noted to hav e an elevated troponin of 0.418 with T-wave inversions on EKG. She was started on aspirin and heparin drip and was admitted for non-ST elevation [place]. On 05/27/2019 she was noted to have spiked a fever thought to be possibly related to UTI or COVID 19 infection. Troponins were trended which went from 0.195- 0.190. Her troponins were related to demand ischemia probably from sepsis. Influenza A and B was negative. Urine culture did come back positive for E. coli that was sensitive to Rocephin. COVID testing was subsequently positive. She was initiated on hydroxychloroquine, azithromycin, Rocephin, zinc and vitamin C. Infectious disease was consulted and discontinued her Rocephin and azithromycin. Echocardiogram was done which showed an EF of 55-60%. Her respiratory status worsened and to 05/31/2019. Her oxygen requirements increased from 8 L nasal cannula to 15 L high flow. It was noted that she was DO NOT RESUSCITATE and DO NOT INTUBATE. I had a long conversation with the ruth vasquez and she was agreeable for intubation. Pulmonology was consulted and she was moved to the ICU for elective intubation. Sedation holiday was attempted on June 01 and June 02. She did have diarrhea for which she was given cholestyramine, C. diff was negative. Patient was extubated on 06/04/2019. She did go into atrial flutter on telemetry on 06/04/2019 for which she was started on therapeutic Lovenox by cardiology. Her Rocephin was started on 06/05/2019 for total of 3 doses to treat UTI. Her respiratory status continues to be declining now on 10 L high flow via nasal cannula. Patient seen and examined at bedside, respiratory status continues to decline having increasing O2 requirements now up to 10 L via nasal cannula high flow with increased work of breathing and tachypneic. Patient mentioned that she does not want to be reintubated. Leukocytosis worsening at 16.7 and patient is afebrile. Had issues with some nausea this morning continues to have severe diarrhea rectal tube in place. Objective - Vital Signs Vital signs: Vital Signs Temp 98.0 F 06/07/19 04:00 Pulse 75 06/07/19 11:00 Resp 32 H 06/07/19 11:00 BP 137/71 06/07/19 11:00 Pulse Ox 94 L 06/07/19 11:00 Intake & Output 06/06/19 06/07/19 06/07/19 18:59 06:59 18:59 Intake Total 1460 440 250 Output Total 2495 965 1340 Balance -9980 -874 -1091 Weight 73.936 kg Intake: IV 240 240 150 Sodium Chloride 0.9% 1, 240 240 100 000 ml @ 20 mls/hr IV . Q24H [facility] Rx#:[id number] cefTRIAXone 1 gm In 50 Sodium Chloride 0.9% 50 ml @ 100 mls/hr IVPB Q24HR [facility] Rx#:[id number] Intake, IV Titration 500 Amount Azithromycin 500 mg In 250 Sodium Chloride 0.9% 250 ml @ 250 mls/hr IVPB DAILY [facility] Rx#:[id number] Potassium Chloride 20 meq 200 In Water For Injection 1 100ml.bag @ 50 mls/hr IVPB Q2H [facility] Rx#: [id number] cefTRIAXone 1 gm In 50 Sodium Chloride 0.9% 50 ml @ 100 mls/hr IVPB Q24HR [facility] Rx#:[id number] Oral 720 200 100 Output: Urine 2495 565 340 Stool 400 1000 Other: Voiding Method Indwelling Catheter Indwelling Catheter Indwelling Catheter # Voids 1 ABP, PAP, CO, CI - Last Documented Arterial Blood Pressure 160/59 - Exam Constitutional: Respiratory distress, conversant, pleasant Eyes: Anicteric sclerae, moist conjunctiva, no lid-lag, PERRLA ENMT: NC/AT,Oropharynx clear, no erythema, exudates Neck:Supple, FROM, no masses, or JVD, No carotid bruits; No thyromegaly Lungs: increased respiratory effort with accessory muscle use and tachypneic on 10 L high flow via nasal cannula Cardiovascular: Heart regular in rate and rhythm, No murmurs, gallops, or rubs no peripheral edema Abdominal: Soft Nontender, nom distended, no guarding, no rebound or rigidity, Normoactive bowel sounds No hepatomegaly, No splenomegaly, No palpable mass No abdominal wall hernia noted Skin: Normal temperature, tone, texture, turgor, No induration No subcutaneous nodules, No rash, lesions, No ulcers Extremities:No digital cyanosis No clubbing, Pedal pulses intact and symmetrical Radial pulses intact and symmetrical Normal gait and station, No calf tenderness Psychiatric: Alert and oriented to person, place and time, Appropriate affect Intact judgement Neuro: Muscles Strength 5/5 in all 4 extremities, Sensation to light touch grossly present throughout, Cranial nerves II-XII grossly intact. No focal sensory deficits - Labs CBC & Chem 7: 06/08/19 04:30 06/08/19 04:30 Labs: Abnormal Lab Results - Last 24 Hours (Table) 06/06/19 06/06/19 06/06/19 Range/Units 04:30 15:10 17:10 WBC (3.8-10.6) k/uL Hgb (11.4-16.0) gm/dL Hct (34.0-46.0) % MCV (80.0-100.0) fL MCH (25.0-35.0) pg RDW (11.5-15.5) % Plt Count (150-450) k/uL Sodium (137-145) mmol/L Potassium 3.2 L (3.5-5.1) mmol/L BUN (7-17) mg/dL Creatinine (0.52-1.04) mg/dL POC Glucose (mg/dL) 122 H (75-99) mg/dL Ferritin 519.1 H (10.0-291.0) ng/mL Alkaline Phosphatase (38-126) U/L Lactate Dehydrogenase (313-618) U/L Creatine Kinase (30-135) U/L C-Reactive Protein (<10.0) mg/L Total Protein (6.3-8.2) g/dL Albumin (3.5-5.0) g/dL 06/06/19 06/07/19 06/07/19 Range/Units 20:32 04:28 04:28 WBC 16.7 H (3.8-10.6) k/uL Hgb 10.3 L (11.4-16.0) gm/dL Hct 33.0 L (34.0-46.0) % MCV 74.5 L (80.0-100.0) fL MCH 23.3 L (25.0-35.0) pg RDW 19.9 H (11.5-15.5) % Plt Count 601 H (150-450) k/uL Sodium 132 L (137-145) mmol/L Potassium (3.5-5.1) mmol/L BUN 18 H (7-17) mg/dL Creatinine 0.40 L (0.52-1.04) mg/dL POC Glucose (mg/dL) 104 H (75-99) mg/dL Ferritin (10.0-291.0) ng/mL Alkaline Phosphatase 162 H (38-126) U/L Lactate Dehydrogenase 2141 H (313-618) U/L Creatine Kinase <20 L (30-135) U/L C-Reactive Protein 68.8 H (<10.0) mg/L Total Protein 5.2 L (6.3-8.2) g/dL Albumin 2.7 L (3.5-5.0) g/dL 06/07/19 06/07/19 Range/Units 07:19 11:58 WBC (3.8-10.6) k/uL Hgb (11.4-16.0) gm/dL Hct (34.0-46.0) % MCV (80.0-100.0) fL MCH (25.0-35.0) pg RDW (11.5-15.5) % Plt Count (150-450) k/uL Sodium (137-145) mmol/L Potassium (3.5-5.1) mmol/L BUN (7-17) mg/dL Creatinine (0.52-1.04) mg/dL POC Glucose (mg/dL) 104 H 165 H (75-99) mg/dL Ferritin (10.0-291.0) ng/mL Alkaline Phosphatase (38-126) U/L Lactate Dehydrogenase (313-618) U/L Creatine Kinase (30-135) U/L C-Reactive Protein (<10.0) mg/L Total Protein (6.3-8.2) g/dL Albumin (3.5-5.0) g/dL Assessment and Plan Assessment: Acute hypoxic respiratory failure secondary to COVID 19 pneumonia Hypokalemia Atrial flutter Sepsis likely due to COVID 19 along with UTI Hypertension Elevated troponin likely demand ischemia Hip tumor Patient was extubated on 06/04/2019. Plans: She has completed a course of azithromycin for concerns of acute bronchitis. Completed course of hydroxyc hloroquine for COVID infection. Also on zinc. Plans to repeat chest x-ray tomorrow morning. Follow d-dimer (slightly elevated), ferritin (slight increase), LDH (decreasing), CRP (increasing). Infectious disease following. Potassium 3.5. Plans: Replaced via protocol. Repeat BMP tomorrow morning. As seen on telemetry. Plans: Started on therapeutic Lovenox. Maintain potassium greater than 4 and magnesium greater than 2. Follow cardiology recommendations. Telemetry monitoring. Continue metoprolol. Plans: Management as above. Will restart Rocephin for 3 days as it appears the patient was not treated for her UTI. BP 136/65. Plans: Continue lisinopril and metoprolol. Monitor vitals, adjust medications as necessary. Her troponins are flat. Troponin 0.48, 0.195, 0.190. Likely demand ischemia from sepsis. Echocardiogram with no wall motion abnormalities. Plans: Cardiology evaluated, nothing further to do. Plans: Adequate pain management. [Patient extubated. Progress is marginal on 4-5L NC. CXR worsening. Pulmonology on board. Infectious disease following. Being treated for UTI and COVID 19 infection. Low threshold for re-intubation.]
[2019-06-07 12:34] LABS: Ferritin 606.9 ng/mL (10.0-291.0)
[2019-06-07] MEDS: ALBUTEROL HFA INHALER INHALATION PRN (12:49)
--- NOTE | 2019-06-07 13:25 | P.PN ---
Subjective Progress Note Date: 06/07/19 Principal diagnosis: Acute hypoxic respiratory failure secondary to covid 19 pneumonitis 78-year-old white female patient with past medical history of hypertension, depression, ex-smoker, who presented to the emergency department on 05/26/2019 for evaluation of nausea for 4 days. Patient has only been able to consume liquids, and has been having vomiting with solid food. She denied fevers, denied cough, denied any chest or abdominal pain, denied any shortness of breath. She was feeling weak, fatigued. Patient was recently diagnosed with a large soft tissue mass involving the posterior right hip that was biopsied a week ago and she is awaiting results. Chest x-ray showed mild peribronchial cuffing, on the basis of possible reactive airway disease, but no focal airspace opacity, pleural effusion with pneumothorax on initial chest x-ray on 05/26/2019. White blood cell count was 5.7, hemoglobin is 10.0, lymphocyte count was 0.5, sodium is 134, potassium is 4.5, chloride is 98, CO2 is 26, B1 is 22, creatinine 0.7, plasma lactic acid was less than 0.5, ferritin was elevated at 524, LDH 1047, troponins were elevated with the first one at 0.418, and trended down to 0.19, pro-calcitonin was 0.39, patient was found to have a urinary tract infection with urine cultures positive for E. coli, she was started on, a Rocephin and Zithromax, her COVID 19 was positive. She was started on Plaquenil and IV steroids, however gradually her oxygenation continued to worsen, and today on 05/31/2019 patient is on 8 L of oxygen, with marginal O2 saturations, she feels very fatigued and weak, and dyspneic. She did have one episode of low-grade fever today, her follow-up blood work showed white blood cell count of 6.5, hemoglobin 9.3, electrolytes are within normal limits, B1 of 25, creatinine 0.71, LDH continuously trending up to 1491. Follow-up chest x-ray today shows a worsening of the known multifocal COVID 19 related pneumonia, most confluent in the right midlung. Patient is dyspnea, her O2 saturations have worsen, blood gas was obtained, showing pO2 57, pCO2 36, pH of 7.42 this was done and FiO2 of 60%. Patient is being transferred to the intensive care unit with orders for intubation and placement on mechanical ventilator by anesthesia services. Patient was reevaluated today on 06/01/19, remains in the unit, patient was intubated and mechanically ventilated yesterday. Her present vent settings are tidal volume is 400 assist control rate is 28 FiO2 is 40% and PEEP is at 12. Her peak airway pressure is 28 and plateau pressures 24. Patient is on fentanyl at 1.5 mcg/kg/h she is also on propofol 50 mcg/kg/m, Nimbex, and IV fluid of 0.9 normal saline at 75 mL per hour. Patient is on tube feeding. Had issues with her urine output yesterday, responded to fluid bolus followed by Lasix. Urine output is about 20-30 mL/h at present. Chest x-ray showed bilateral interstitial airspace disease. Slightly better compared to the one before intubation. ABG showed a pO2 of 93 pCO2 of 36 pH of 7.43. WBC count is 4.6 hemoglobin is 8.2 platelets are 227. Basic metabolic profile is normal. Ferritin however is 952 LDH is 1277 C-reactive protein is 79 d-dimer is 1.01 patient is sedated and paralyzed on mechanical ventilation Reevaluated today on 06/02/19, patient remains in the ICU, intubated, mechanically ventilated. Her ventilator settings are assist control rate of 28 tidal volume of 400 FiO2 is 40% PEEP is at 12. Patient is on propofol at 50 mcg/kg/m, she is on fentanyl at 1.5 mcg/kg/m, not requiring any Nimbex, IV fluid 0.9 normal ritu ine at 75 mL per hour. Patient iscovid 19 positive. Patient is on enteral feeding at 50 mL per hour. ABG showed a pO2 of 97 pCO2 of 39 pH of 7.40. CBC is relatively normal except for hemoglobin of 8.4. D-dimer is 1.02. Electrodes are normal renal profile is normal LDH is 1079, C-reactive protein is 35 ferritin is 766. Chest x-ray showed bilateral infiltrates right more so than left, not much of significant change in the last 24 hours, but definitely not worse. It is actually improved compared to her baseline chest x-ray before intubation Reevaluated today on 06/03/19, patient remains in the ICU, intubated and mechanically ventilated. Ventilator settings are assist control rate of 28, tidal volume is 400, FiO2 is 40%, PEEP is 10 and I cut it down to 8 today. Patient is on fentanyl at 0.5 mcg/kg per hour and propofol at 40 mcg/kg/minute. ABG showed a pO2 of 100 pCO2 of 37 pH of 7.39. Basic metabolic profile is normal. Renal profile is normal. CBC is relatively normal except for hemoglobin of 8. Inflammatory markers today showed C-reactive protein of 26.5 LDH is 02/24/2002 and ferritin is 520. Chest x-ray is showing slight improvement with bibasilar infiltrates compared to baseline. Reevaluated today on 06/04/19, patient remains in the ICU, intubated and mechanically ventilated. Her ventilatory settings are assist control rate of 28 tidal volume is 400 FiO2 is 40% and PEEP is 8. Patient is in the process of having her propofol on hold, and I will most likely recommend pressure support of 8 and CPAP on this patient and repeat her ABG in half an hour or so, may consider weaning the patient and extubating her. Chest x-ray is showing slight improvement but nonetheless continues to show diffuse interstitial infiltrates. Patient was given Lasix 20 mg IV push. And she seems to be awake, she does have thick secretions during suctioning. Her labs today showed a pO2 of 100 pCO2 of 36 pH of 7.35. Her electrolytes in the upper profile are normal CBC is normal. CPAP ABG showed a pO2 of 101 pCO2 of 35 pH of 7.36. Inflammatory markers today showed improvement with her C-reactive protein, LDH, and ferritin. Reevaluated today on 06/05/19, patient remains in the ICU, she was extubated yesterday, continues to tolerate the extubation well, however her chest x-ray shows worsening infiltrates bilaterally. Not reflected on her actual clinical status at present.patient is on 4 L nasal cannula. And her O2 saturation is 95%.denies being short of breath. Her WBC count is 11.8 hemoglobin is 8.4. Electrodes are normal d-dimer is 1.23.markers are elevated including ferritin of 508 LDH is 2046 and C-reactive protein is 30.9. Patient was reevaluated today on 06/06/19, patient was extubated on 06/04/19, however her overall pulmonary status remains marginal. Patient is relatively asymptomatic, however her chest x-ray seems to be quite concerning to me. Wor sening infiltrates noted bilaterally. And her O2 saturation is 92% on 5 L. Patient is hemodynamically stable, relatively asymptomatic. Denies any cough wheezing or shortness of breath. WBC count is 14 hemoglobin is 9.8 and advised are normal except for low potassium being corrected as per protocol. The patient was reevaluated in the intensive care unit today, 06/07/2019, with Dr. Hanson. Her oxygen requirements have gradually increased, this more and she is on 10 L high flow nasal cannula with oxygen saturation 96%. She remains afebrile. Hemodynamically stable on no pressors. WBC 16.7, hemoglobin 10.3, platelet 601, BUN 18, creatinine 0.4, LDH 2141 which is increased from yesterday, CRP 68.8 which is increased from yesterday, ferritin 606.9 which is increased from yesterday. Chest x-ray this morning demonstrates scattered interstitial and alveolar infiltrates without significant change. Her fluid balance this morning is -1 L over the last 24 hours. She denies any pain or inc reased shortness of breath. Objective - Vital Signs Vital signs: Vital Signs Temp 98.0 F 06/07/19 04:00 Pulse 85 06/07/19 12:00 Resp 28 H 06/07/19 12:00 BP 146/72 06/07/19 12:00 Pulse Ox 96 06/07/19 12:00 Intake & Output 06/06/19 06/07/19 06/07/19 18:59 06:59 18:59 Intake Total 1460 440 290 Output Total 2495 965 1340 Balance -1035 -525 -1050 Weight 73.936 kg Intake: IV 240 240 150 Sodium Chloride 0.9% 1, 240 240 100 000 ml @ 20 mls/hr IV . Q24H [facility] Rx#:[id number] cefTRIAXone 1 gm In 50 Sodium Chloride 0.9% 50 ml @ 100 mls/hr IVPB Q24HR [facility] Rx#:[id number] Intake, IV Titration 500 Amount Azithromycin 500 mg In 250 Sodium Chloride 0.9% 250 ml @ 250 mls/hr IVPB DAILY [facility] Rx#:[id number] Potassium Chloride 20 meq 200 In Water For Injection 1 100ml.bag @ 50 mls/hr IVPB Q2H [facility] Rx#: [id number] cefTRIAXone 1 gm In 50 Sodium Chloride 0.9% 50 ml @ 100 mls/hr IVPB Q24HR [facility] Rx#:[id number] Oral 720 200 140 Output: Urine 2495 565 340 Stool 400 1000 Other: Voiding Method Indwelling Catheter Indwelling Catheter Indwelling Catheter # Voids 1 ABP, PAP, CO, CI - Last Documented Arterial Blood Pressure 160/59 - Constitutional Constitutional Comment(s): Sitting up in bed, appears comfortable General appearance: Present: cooperative, no acute distress - Respiratory Details: Lungs sounds diminished bilaterally with fine crackles in the bases. Respirations even but slightly taccypneic. Currently on 10 L high flow nasal cannula with oxygen saturation 96%. - Cardiovascular Details: S1, S2 present. Regular rate and rhythm, sinus rhythm on telemetry. Palpable peripheral pulses bilaterally. No edema present. No calf pain or tenderness noted. - Gastrointestinal Gastrointestinal Comment(s): Abdomen soft, nontender, nondistended. No organomegaly present. Active bowel sounds present 4 quadrants. Tolerating sips. - Integumentary Integumentary Comment(s): Skin is warm and dry with evidence of good perfusion - Neurologic Neurologic: Present: CNII-XII intact - Musculoskeletal Musculoskeletal: Present: generalized weakness, strength equal bilaterally - Psychiatric Psychiatric: Present: A&O x's 3, appropriate affect, intact judgment & insight - Allied health notes Allied health notes reviewed: nursing - Labs CBC & Chem 7: 06/07/19 04:28 06/07/19 04:28 Labs: Abnormal Lab Results - Last 24 Hours (Table) 06/06/19 06/06/19 06/06/19 Range/Units 04:30 15:10 17:10 WBC (3.8-10.6) k/uL Hgb (11.4-16.0) gm/dL Hct (34.0-46.0) % MCV (80.0-100.0) fL MCH (25.0-35.0) pg RDW (11.5-15.5) % Plt Count (150-450) k/uL Sodium (137-145) mmol/L Potassium 3.2 L (3.5-5.1) mmol/L BUN (7-17) mg/dL Creatinine (0.52-1.04) mg/dL POC Glucose (mg/dL) 122 H (75-99) mg/dL Ferritin 519.1 H (10.0-291.0) ng/mL Alkaline Phosphatase (38-126) U/L Lactate Dehydrogenase (313-618) U/L Creatine Kinase (30-135) U/L C-Reactive Protein (<10.0) mg/L Total Protein (6.3-8.2) g/dL Albumin (3.5-5.0) g/dL 06/06/19 06/07/19 06/07/19 Range/Units 20:32 04:28 04:28 WBC 16.7 H (3.8-10.6) k/uL Hgb 10.3 L (11.4-16.0) gm/dL Hct 33.0 L (34.0-46.0) % MCV 74.5 L (80.0-100.0) fL MCH 23.3 L (25.0-35.0) pg RDW 19.9 H (11.5-15.5) % Plt Count 601 H (150-450) k/uL Sodium 132 L (137-145) mmol/L Potassium (3.5-5.1) mmol/L BUN 18 H (7-17) mg/dL Creatinine 0.40 L (0.52-1.04) mg/dL POC Glucose (mg/dL) 104 H (75-99) mg/dL Ferritin 606.9 H (10.0-291.0) ng/mL Alkaline Phosphatase 162 H (38-126) U/L Lactate Dehydrogenase 2141 H (313-618) U/L Creatine Kinase <20 L (30-135) U/L C-Reactive Protein 68.8 H (<10.0) mg/L Total Protein 5.2 L (6.3-8.2) g/dL Albumin 2.7 L (3.5-5.0) g/dL 06/07/19 06/07/19 Range/Units 07:19 11:58 WBC (3.8-10.6) k/uL Hgb (11.4-16.0) gm/dL Hct (34.0-46.0) % MCV (80.0-100.0) fL MCH (25.0-35.0) pg RDW (11.5-15.5) % Plt Count (150-450) k/uL Sodium (137-145) mmol/L Potassium (3.5-5.1) mmol/L BUN (7-17) mg/dL Creatinine (0.52-1.04) mg/dL POC Glucose (mg/dL) 104 H 165 H (75-99) mg/dL Ferritin (10.0-291.0) ng/mL Alkaline Phosphatase (38-126) U/L Lactate Dehydrogenase (313-618) U/L Creatine Kinase (30-135) U/L C-Reactive Protein (<10.0) mg/L Total Protein (6.3-8.2) g/dL Albumin (3.5-5.0) g/dL - Imaging and Cardiology Chest x-ray: report reviewed, image reviewed Assessment and Plan Assessment: Acute hypoxemic respiratory failure related to acute COVID 19 related pneumonia, requiring intubation and mechanical ventilation. extubated on 06/04/19, oxygen requirements increased overnight, currently on 10 L high flow nasal cannula. Chest x-ray remains concerning, especially with increased oxygen needs. Acute urinary tract infection, related to E. coli, completed antibiotic course History of hypertension Depression Recent history of large soft tissue mass involving the posterior right hip status post biopsy, results are pending Previous tobacco dependence Plan: Wean O2 as tolerated, oxygen currently at 10 L/m via high flow nasal cannula. Regular diet. Continue to monitor in the ICU for another 24 hours. Stop Zithromax Continue GI and DVT prophylaxis. Continue to monitor inflammatory markers for covid 19 pneumonitis. we will continue to follow. Time with Patient: Greater than 30
[2019-06-07 16:32] LABS: Glucose,Whole Blood 145 mg/dL (75-99)
[2019-06-07] MEDS ORDERED: FUROSEMIDE 10 MG/ML 2 ML VIAL IV ONE (18:12)
[2019-06-07 21:09] LABS: Glucose,Whole Blood 98 mg/dL (75-99)
--- NOTE | 2019-06-07 21:59 | PN ---
PROGRESS NOTE DATE OF SERVICE: 06/07/2019 REASON FOR FOLLOWUP: Acute COVID-19 pneumonia. INTERVAL HISTORY: The patient is currently afebrile. Patient has been breathing comfortably. Still requiring high-flow oxygen. Denies having any chest pain. Occasional cough. No nausea, vomiting, abdominal pain, diarrhea has resolved. PHYSICAL EXAMINATION: Blood pressure 139/55 with a pulse of 92, temperature 98. She is 93% on 10 L high-flow oxygen. General description is an elderly female lying in bed in no distress. Respiratory system: Unlabored breathing, decreased breath sounds at the base. No wheeze. Heart S1-S2 regular rate and rhythm. Abdomen soft, no tenderness. LABS: Hemoglobin is 10.8, white count 16.7, LDH is up to 141. CRP is elevated as well. Chest x-ray scheduled, the patient infiltrate persists. IMPRESSION/PLAN: 1. Patient with acute COVID-19 infection in this patient who has completed her course of the Plaquenil and Zithromax. Even the steroids has been discontinued today per Pulmonary. The patient needs to be monitored closely for any worsening. 2. If spike in fever or any change in her clinical condition to re-culture before starting oral antibiotics. Overall prognosis remains to be guarded. MMODL / IJN: [id number] / LOGAN
[2019-06-08] MEDS: HYDROcodone/APAP 10-325MG 1 EACH TAB PO PRN ×3 (01:50→22:45)
[2019-06-08 04:45] LABS: Anisocytosis Moderate; Basophils % (A) 0 %; Eosinophils # (A) 0.2 k/uL (0-0.7); Eosinophils % (A) 1 %; HCT 31.5 % (34.0-46.0); HGB 9.7 gm/dL (11.4-16.0); Hypochromasia Marked; Lymphocytes # (A) 1.1 k/uL (1.0-4.8); Lymphocytes % (A) 7 %; MCH 22.9 pg (25.0-35.0); MCHC 30.7 g/dL (31.0-37.0); MCV 74.6 fL (80.0-100.0); Mean Platelet Volume 9.4; Microcytosis Moderate; Monocytes # (A) 0.4 k/uL (0-1.0); Monocytes % (A) 3 %; Neutrophils # (A) 14.2 k/uL (1.3-7.7); Neutrophils % (A) 89 %; Platelet Count 568 k/uL (150-450); Poikilocytosis Moderate; RBC 4.22 m/uL (3.80-5.40); RDW 20.1 % (11.5-15.5)
[2019-06-08 04:57] LABS: ALT 13 U/L (4-34); AST 13 U/L (14-36); African American GFR (CKD) >90 (>60 ml/min/1.73 sqM); Albumin 2.5 g/dL (3.5-5.0); Alkaline Phosphatase 157 U/L (38-126); Anion Gap 3 mmol/L; Blood Urea Nitrogen 19 mg/dL (7-17); C Reactive Protein 44.9 mg/L (<10.0); Calcium 8.2 mg/dL (8.4-10.2); Carbon Dioxide 29 mmol/L (22-30); Chloride 101 mmol/L (98-107); Glucose 98 mg/dL (74-99); LDH 1397 U/L (313-618); Non-African American GFR(CKD) >90 (>60 ml/min/1.73 sqM); Potassium 3.2 mmol/L (3.5-5.1); Sodium 133 mmol/L (137-145); Total Bilirubin 0.4 mg/dL (0.2-1.3)
[2019-06-08 05:21] LABS: Polychromasia Present; Tear Drop Cells Present
[2019-06-08 05:22] LABS: Large Platelets Present
[2019-06-08 06:18] LABS: Glucose,Whole Blood 106 mg/dL (75-99)
[2019-06-08] MEDS: INSULIN ASPART (NovoLOG) 100 UNIT/ML VIAL SQ SCH ×4 (06:20→20:26)
[2019-06-08 06:59] LABS: Glucose,Whole Blood 98 mg/dL (75-99)
--- NOTE | 2019-06-08 07:18 | XR ---
EXAMINATION TYPE: XR chest 1V portable DATE OF EXAM: 06/08/2019 COMPARISON: 06/07/2019 HISTORY: Shortness of breath FINDINGS: There are bilateral pleural effusions with cardiomegaly and bibasilar infiltrate. There is a diffuse interstitial pattern. Lung apices not included but no sizable pneumothorax. Central line stable. Hyp ertrophic and degenerative change of the spine with curvature the spine. Small granuloma left upper l obe stable. IMPRESSION: 1. Stable x-ray demonstrating mixed diffuse bilateral pleural-parenchymal changes. Underlying diffuse pneumonia versus pulmonary edema.
[2019-06-08] MEDS ORDERED: PANTOPRAZOLE 40 MG TABLET PO SCH (07:30)
[2019-06-08] MEDS: ALBUTEROL HFA INHALER INHALATION PRN ×3 (07:44→20:42)
[2019-06-08] MEDS: ENOXAPARIN 60 MG/0.6 ML SYRINGE SQ SCH ×2 (08:57→20:23)
[2019-06-08] MEDS: ASPIRIN 81 MG PO SCH (08:58)
[2019-06-08] MEDS: amLODIPine 5 MG TAB PO SCH ×2 (08:58→20:23)
[2019-06-08] MEDS: lisinopriL 20 MG TAB PO SCH ×2 (08:58→20:23)
[2019-06-08] MEDS: METOPROLOL TARTRATE 25 MG TAB PO SCH ×2 (08:58→20:23)
[2019-06-08] MEDS: ZINC SULFATE 220 MG CAP PO SCH (08:59)
[2019-06-08] MEDS: PANTOPRAZOLE 40 MG/10 ML VIAL IVP SCH (08:59)
[2019-06-08] MEDS: PARoxetine 10 MG TAB PO SCH (08:59)
[2019-06-08] MEDS: TRIMETHOBENZAMIDE 300 MG CAP PO SCH ×3 (08:59→20:23)
[2019-06-08] MEDS: CHOLESTYRAMINE (WITH SUGAR) 4 GM PACKET OG-TUBE SCH ×2 (09:00→18:01)
[2019-06-08 12:10] LABS: Glucose,Whole Blood 119 mg/dL (75-99)
[2019-06-08] MEDS: ASCORBIC ACID 500 MG TAB PO SCH ×2 (12:23→20:23)
[2019-06-08] MEDS: POTASSIUM CHLORIDE ER 20 MEQ TAB.ER PO SCH ×4 (12:23→18:01)
--- NOTE | 2019-06-08 13:59 | PN ---
PROGRESS NOTE PULMONARY/CRITICAL CARE PROGRESS NOTE: DATE OF SERVICE: 06/08/2019 This is a 78-year-old female who was admitted way back on May 25. I began seeing her yesterday on June 06. The patient is currently on 12 L high-flow oxygen with a saturation of 96%. She is getting saline at KVO. She is on Rocephin. She is a DNR patient. The patient does refuse to go back on mechanical life support if necessary. We asked her that yesterday. The patient was admitted with a diagnosis of acute hypoxemic respiratory failure related to underlying COVID-19 pneumonia. She was intubated and finally extubated on June 03. Currently, she also has a history of acute urinary tract infection secondary to Escherichia coli, hypertension, and depression. She also has a large soft tissue mass involving the posterior right hip with previous biopsy, results which are pending. She also has a previous tobacco dependence. Again currently, she seems to be doing better. Current vital signs are reviewed. They include a temperature which is 97.6, a heart rate which is 85, respiratory rate 27, blood pressure 159/76 mean 103, saturations are 97% on 12 L high flow. GENERAL: Appears in no acute distress. Mildly tachypneic. She does have some mild conversational dyspnea. HEENT: Examination is grossly unremarkable. High-flow nasal cannula noted. NECK: Supple. Full range of motion. No adenopathy. Neck veins are flat. CARDIOVASCULAR: Examination reveals regular rhythm and rate. S1, S2 normal. No S3, S4 or murmur. Heart rate 85. LUNGS: Reveal coarse bilateral rhonchi. No wheezes or crackles. ABDOMEN: Soft, bowel sounds are heard. EXTREMITIES: Intact. Slight edema. SKIN: Without rash. NEUROLOGIC: Examination is brief but nonfocal. LABS: Reviewed. White count 16, hemoglobin 9.7, hematocrit 31.5, platelet count 568,000. D- dimer 0.89. Sodium 133, potassium 3.2, chloride 101, CO2 is 29, anion gap is 3. BUN and creatinine were 19 and 0.45, calcium 8.2, bilirubin 0.4, AST 13, ALT 13, LDH 1397, alkaline phosphatase 157. C-reactive protein 44.9, albumin 2.5. Microbiology showing evidence of Escherichia coli in the urine. There was some Bernadette albicans in the sputum. MEDICATIONS: Reviewed. She is currently on Tylenol, albuterol inhaler, amlodipine, ascorbic acid, aspirin, Questran, Lovenox, [place], NovoLog insulin, Zestril, metoprolol, Narcan, nitroglycerin, Protonix, Paxil, potassium replacement, Tigan, and zinc. ASSESSMENT: 1. Acute hypoxemic respiratory failure, secondary to COVID-19 pneumonia, status post extubation successfully on June 04, 2019. 2. Ongoing hypoxemia and chronic chest x-ray changes, secondary to COVID-19 pneumonia. 3. Escherichia coli urinary tract infection, currently being treated. 4. History of benign essential hypertension. 5. History of depression. 6. History of large soft tissue mass involving the posterior right hip, status post biopsy, results pending. 7. Prior history of tobacco dependence. PLAN: We discussed with the patient whether not she would want to go back on life support. She was adamant about not ongoing back on life support. The patient will continue on her current medications. Will continue to follow. Prognosis is guarded. She could be transferred out to the general medical floor. Additional recommendations and suggestions are forthcoming. She is not to be intubated, mechanically ventilated again. MMODL / IJN: [id number] /
--- NOTE | 2019-06-08 14:39 | P.PN ---
Subjective Progress Note Date: 06/08/19 Principal diagnosis: 78-year-old female with PMH of hypertension presented to the ED for epigastric discomfort and intractable nausea and vomiting. In the ED, she was noted to hav e an elevated troponin of 0.418 with T-wave inversions on EKG. She was started on aspirin and heparin drip and was admitted for non-ST elevation [place]. On 05/27/2019 she was noted to have spiked a fever thought to be possibly related to UTI or COVID 19 infection. Troponins were trended which went from 0.195- 0.190. Her troponins were related to demand ischemia probably from sepsis. Influenza A and B was negative. Urine culture did come back positive for E. coli that was sensitive to Rocephin. COVID testing was subsequently positive. She was initiated on hydroxychloroquine, azithromycin, Rocephin, zinc and vitamin C. Infectious disease was consulted and discontinued her Rocephin and azithromycin. Echocardiogram was done which showed an EF of 55-60%. Her respiratory status worsened and to 05/31/2019. Her oxygen requirements increased from 8 L nasal cannula to 15 L high flow. It was noted that she was DO NOT RESUSCITATE and DO NOT INTUBATE. I had a long conversation with the ruth vasquez and she was agreeable for intubation. Pulmonology was consulted and she was moved to the ICU for elective intubation. Sedation holiday was attempted on June 01 and June 02. She did have diarrhea for which she was given cholestyramine, C. diff was negative. Patient was extubated on 06/04/2019. She did go into atrial flutter on telemetry on 06/04/2019 for which she was started on therapeutic Lovenox by cardiology. Her Rocephin was started on 06/05/2019 for total of 3 doses to treat UTI. Her respiratory status continues to be declining now on 10 L high flow via nasal cannula. Patient seen and examined at bedside, she continues on 10 L via nasal cannula high flow with increased work of breathing and tachypneic. Patient mentioned that she does not want to be reintubated ever again Leukocytosis down slightly to 16 from 16.7 and patient is afebrile. Diarrhea has improved fecal monitoring system has been removed potassium 3.2 today. LDH 1397, CRP 45. Objective - Vital Signs Vital signs: Vital Signs Temp 98.7 F 06/08/19 12:00 Pulse 85 06/08/19 08:00 Resp 20 06/08/19 12:00 BP 146/62 06/08/19 12:00 Pulse Ox 87 L 06/08/19 12:00 Intake & Output 06/07/19 06/08/19 06/08/19 18:59 06:59 18:59 Intake Total 640 370 40 Output Total 2440 1485 150 Balance -1800 -1115 -110 Intake: IV 270 220 40 Sodium Chloride 0.9% 1, 220 220 40 000 ml @ 20 mls/hr IV . Q24H [facility] Rx#:[id number] cefTRIAXone 1 gm In 50 Sodium Chloride 0.9% 50 ml @ 100 mls/hr IVPB Q24HR [facility] Rx#:[id number] Oral 370 150 Output: Urine 440 1085 150 Stool 2000 400 Other: Voiding Method Indwelling Catheter Indwelling Catheter Indwelling Catheter # Voids 1 ABP, PAP, CO, CI - Last Documented Arterial Blood Pressure 160/59 - Exam Constitutional: Respiratory distress, conversant, pleasant Eyes: Anicteric sclerae, moist conjunctiva, no lid-lag, PERRLA ENMT: NC/AT,Oropharynx clear, no erythema, exudates Neck:Supple, FROM, no masses, or JVD, No carotid bruits; No thyromegaly Lungs: increased respiratory effort with accessory muscle use and tachypneic on 10 L high flow via nasal cannula Cardiovascular: Heart regular in rate and rhythm, No murmurs, gallops, or rubs no peripheral edema Abdominal: Soft Nontender, nom distended, no guarding, no rebound or rigidity, Normoactive bowel sounds No hepatomegaly, No splenomegaly, No palpable mass No abdominal wall hernia noted Skin: Normal temperature, tone, texture, turgor, No induration No subcutaneous nodules, No rash, lesions, No ulcers Extremities:No digital cyanosis No clubbing, Pedal pulses intact and symmetrical Radial pulses intact and symmetrical Normal gait and station, No calf tenderness Psychiatric: Alert and oriented to person, place and time, Appropriate affect Intact judgement Neuro: Muscles Strength 5/5 in all 4 extremities, Sensation to light touch grossly present throughout, Cranial nerves II-XII grossly intact. No focal sensory deficits - Labs CBC & Chem 7: 06/08/19 04:30 04/14/20 04:30 Labs: Abnormal Lab Results - Last 24 Hours (Table) 06/07/19 06/08/19 06/08/19 Range/Units 16:30 04:30 04:30 WBC 16.0 H (3.8-10.6) k/uL Hgb 9.7 L (11.4-16.0) gm/dL Hct 31.5 L (34.0-46.0) % MCV 74.6 L (80.0-100.0) fL MCH 22.9 L (25.0-35.0) pg MCHC 30.7 L (31.0-37.0) g/dL RDW 20.1 H (11.5-15.5) % Plt Count 568 H (150-450) k/uL Neutrophils # 14.2 H (1.3-7.7) k/uL D-Dimer 0.89 H (<0.60) mg/L FEU Sodium (137-145) mmol/L Potassium (3.5-5.1) mmol/L BUN (7-17) mg/dL Creatinine (0.52-1.04) mg/dL POC Glucose (mg/dL) 145 H (75-99) mg/dL Calcium (8.4-10.2) mg/dL AST (14-36) U/L Alkaline Phosphatase (38-126) U/L Lactate Dehydrogenase (313-618) U/L C-Reactive Protein (<10.0) mg/L Total Protein (6.3-8.2) g/dL Albumin (3.5-5.0) g/dL 06/08/19 06/08/19 06/08/19 Range/Units 04:30 06:16 12:08 WBC (3.8-10.6) k/uL Hgb (11.4-16.0) gm/dL Hct (34.0-46.0) % MCV (80.0-100.0) fL MCH (25.0-35.0) pg MCHC (31.0-37.0) g/dL RDW (11.5-15.5) % Plt Count (150-450) k/uL Neutrophils # (1.3-7.7) k/uL D-Dimer (<0.60) mg/L FEU Sodium 133 L (137-145) mmol/L Potassium 3.2 L (3.5-5.1) mmol/L BUN 19 H (7-17) mg/dL Creatinine 0.45 L (0.52-1.04) mg/dL POC Glucose (mg/dL) 106 H 119 H (75-99) mg/dL Calcium 8.2 L (8.4-10.2) mg/dL AST 13 L (14-36) U/L Alkaline Phosphatase 157 H (38-126) U/L Lactate Dehydrogenase 1397 H (313-618) U/L C-Reactive Protein 44.9 H (<10.0) mg/L Total Protein 5.0 L (6.3-8.2) g/dL Albumin 2.5 L (3.5-5.0) g/dL Assessment and Plan Assessment: Acute hypoxic respiratory failure secondary to COVID 19 pneumonia Hypokalemia Atrial flutter Sepsis likely due to COVID 19 along with UTI Hypertension Elevated troponin likely demand ischemia Hip tumor Patient was extubated on 06/04/2019. Plans: She has completed a course of azithromycin for concerns of acute bronchitis. Completed course of hydroxychloroquine for COVID infection. Also on zinc. Plans to repeat chest x- ray tomorrow morning. Follow d-dimer (slightly elevated), ferritin (slight increase), LDH (decreasing), CRP (increasing). Infectious disease following. Potassium 3.2. Plans: Replaced via protocol. Repeat BMP tomorrow morning. As seen on telemetry. Plans: Started on therapeutic Lovenox. Maintain potassium greater than 4 and magnesium greater than 2. Follow cardiology recommendations. Telemetry monitoring. Continue metoprolol. Plans: Management as above. Will restart Rocephin for 3 days as it appears the patient was not treated for her UTI. BP elevated. Plans: Continue lisinopril and metoprolol. Monitor vitals, adjust medications as necessary. Her troponins are flat. Troponin 0.48, 0.195, 0.190. Likely demand ischemia from sepsis. Echocardiogram with no wall motion abnormalities. Plans: Cardiology evaluated, nothing further to do. Plans: Adequate pain management. [Patient extubated. Progress is marginal on 10 L NC. CXR worsening. Pulmonology on board. Infectious disease following. Being treated for UTI and COVID 19 infection. Low threshold for re-intubation.]
[2019-06-08 17:41] LABS: Glucose,Whole Blood 105 mg/dL (75-99)
[2019-06-08 20:10] LABS: Glucose,Whole Blood 105 mg/dL (75-99)
[2019-06-08] MEDS: CEFEPIME 2 GM in SODIUM CHLORIDE 0.9% 100 ML IVPB SCH (21:38)
--- NOTE | 2019-06-08 21:58 | PN ---
PROGRESS NOTE DATE OF SERVICE: 06/08/2019 REASON FOR FOLLOWUP: COVID-19 pneumonia. INTERVAL HISTORY: The patient is currently afebrile. The patient has been transferred out of the ICU. Still requiring high-flow oxygen. The patient denies having any chest pain or cough. No abdominal pain. No diarrhea. PHYSICAL EXAMINATION: Blood pressure 134/76, pulse of 100, temperature 98.3. She is 91% on 15 L high-flow oxygen. General description is an elderly female lying in bed in no distress. RESPIRATORY SYSTEM: Unlabored breathing with decreased breath sounds at the base. No wheeze. HEART: S1, S2. Regular rate and rhythm. ABDOMEN: Soft. No tenderness. LABS/IMAGING: Hemoglobin 9.7, white count 16. BUN of 19, creatinine 0.45. LDH is down. CRP is down to 44.9. Chest x-ray shows some bilateral parenchymal changes. DIAGNOSTIC IMPRESSION AND PLAN: Patient with acute COVID-19 pneumonia, for which the patient has completed her Plaquenil therapy, now with persistent respiratory distress and elevated white count, with concern for possible secondary bacterial pneumonia. We will empirically add antibiotics, obtain a sputum sample and monitor clinical course closely. MMODL / IJN: [id number] /
[2019-06-08] MEDS ORDERED: LEVOFLOXACIN 750MG-D5W PMX 750 MG in DEXTROSE/WATER 1 150ML.BAG IVPB ONE (22:00)
[2019-06-09 06:51] LABS: Glucose,Whole Blood 120 mg/dL (75-99)
[2019-06-09] MEDS: INSULIN ASPART (NovoLOG) 100 UNIT/ML VIAL SQ SCH ×4 (07:28→23:55)
[2019-06-09] MEDS: ALBUTEROL HFA INHALER INHALATION PRN ×3 (08:07→19:27)
[2019-06-09] MEDS ORDERED: SUCCINYLCHOLINE CHLORIDE VIAL 200 MG/10 ML VIAL IV ONE (08:50)
[2019-06-09] MEDS ORDERED: PROPOFOL 10 MG/ML 20 ML VIAL IV ONE (08:50)
[2019-06-09] MEDS: METOPROLOL TARTRATE 25 MG TAB PO SCH (09:42)
[2019-06-09] MEDS: lisinopriL 20 MG TAB PO SCH (09:42)
[2019-06-09] MEDS: amLODIPine 5 MG TAB PO SCH (09:42)
--- NOTE | 2019-06-09 09:58 | XR ---
EXAMINATION TYPE: XR chest 1V portable DATE OF EXAM: 06/09/2019 COMPARISON: 06/08/2019 INDICATION: Increased need for oxygen TECHNIQUE: Single frontal view of the chest is obtained. FINDINGS: The heart size is normal. The pulmonary vasculature is normal. There is diffuse increased lung markings bilaterally. Findings are worsening from comparison. IMPRESSION: 1. Worsening bilateral lung infiltrates.
[2019-06-09] MEDS: ASPIRIN 81 MG PO SCH (10:18)
[2019-06-09] MEDS: ENOXAPARIN 60 MG/0.6 ML SYRINGE SQ SCH ×2 (10:18→20:30)
[2019-06-09] MEDS: ASCORBIC ACID 500 MG TAB PO SCH ×2 (10:18→20:12)
[2019-06-09] MEDS: CEFEPIME 2 GM in SODIUM CHLORIDE 0.9% 100 ML IVPB SCH ×2 (10:18→20:12)
[2019-06-09] MEDS: TRIMETHOBENZAMIDE 300 MG CAP PO SCH (10:19)
[2019-06-09] MEDS: PARoxetine 10 MG TAB PO SCH (10:19)
[2019-06-09] MEDS: CHOLESTYRAMINE (WITH SUGAR) 4 GM PACKET OG-TUBE SCH ×2 (10:19→18:08)
[2019-06-09] MEDS: PANTOPRAZOLE 40 MG/10 ML VIAL IVP SCH (10:19)
[2019-06-09] MEDS: ZINC SULFATE 220 MG CAP PO SCH (10:19)
--- NOTE | 2019-06-09 10:22 | P.PN ---
Subjective Progress Note Date: 06/09/19 Principal diagnosis: 78-year-old female with PMH of hypertension presented to the ED for epigastric discomfort and intractable nausea and vomiting. In the ED, she was noted to hav e an elevated troponin of 0.418 with T-wave inversions on EKG. She was started on aspirin and heparin drip and was admitted for non-ST elevation [place]. On 05/27/2019 she was noted to have spiked a fever thought to be possibly related to UTI or COVID 19 infection. Troponins were trended which went from 0.195- 0.190. Her troponins were related to demand ischemia probably from sepsis. Influenza A and B was negative. Urine culture did come back positive for E. coli that was sensitive to Rocephin. COVID testing was subsequently positive. She was initiated on hydroxychloroquine, azithromycin, Rocephin, zinc and vitamin C. Infectious disease was consulted and discontinued her Rocephin and azithromycin. Echocardiogram was done which showed an EF of 55-60%. Her respiratory status worsened and to 05/31/2019. Her oxygen requirements increased from 8 L nasal cannula to 15 L high flow. It was noted that she was DO NOT RESUSCITATE and DO NOT INTUBATE. I had a long conversation with the ruth vasquez and she was agreeable for intubation. Pulmonology was consulted and she was moved to the ICU for elective intubation. Sedation holiday was attempted on June 01 and June 02. She did have diarrhea for which she was given cholestyramine, C. diff was negative. Patient was extubated on 06/04/2019. She did go into atrial flutter on telemetry on 06/04/2019 for which she was started on therapeutic Lovenox by cardiology. Her Rocephin was started on 06/05/2019 for total of 3 doses to treat UTI. Her respiratory status continues to be declining now on 10 L high flow via nasal cannula. Patient seen and examined at bedside having increasing O2 requirements up from 10 L yesterday to a nonrebreather and still having episodes of desaturation into the high 70s and mid 80s, chest x-ray confirms worsening bilateral lung infiltrates. Patient continues to be afebrile. Patient continues to be adamant about not being reintubated. Objective - Vital Signs Vital signs: Vital Signs Temp 98.4 F 06/09/19 07:00 Pulse 126 H 06/09/19 07:00 Resp 26 H 06/09/19 09:00 BP 145/69 06/09/19 07:00 Pulse Ox 95 06/09/19 09:00 Intake & Output 06/08/19 06/09/19 06/09/19 18:59 06:59 18:59 Intake Total 240 50 Output Total 350 Balance -110 50 Intake: IV 40 Sodium Chloride 0.9% 1, 40 000 ml @ 20 mls/hr IV . Q24H [facility] Rx#:[id number] Oral 200 50 Output: Urine 150 Stool 200 Other: Voiding Method Indwelling Catheter Bedside Commode Bedpan # Voids 1 1 # Bowel Movements 1 1 ABP, PAP, CO, CI - Last Documented Arterial Blood Pressure 160/59 - Exam Constitutional: Respiratory distress, conversant, pleasant Eyes: Anicteric sclerae, moist conjunctiva, no lid-lag, PERRLA ENMT: NC/AT,Oropharynx clear, no erythema, exudates Neck:Supple, FROM, no masses, or JVD, No carotid bruits; No thyromegaly Lungs: increased respiratory effort with accessory muscle use and tachypneic on nonrebreather Cardiovascular: Heart regular in rate and rhythm, No murmurs, gallops, or rubs no peripheral edema Abdominal: Soft Nontender, nom distended, no guarding, no rebound or rigidity, Normoactive bowel sounds No hepatomegaly, No splenomegaly, No palpable mass No abdominal wall hernia noted Skin: Normal temperature, tone, texture, turgor, No induration No subcutaneous nodules, No rash, lesions, No ulcers Extremities:No digital cyanosis No clubbing, Pedal pulses intact and symmetrical Radial pulses intact and symmetrical Normal gait and station, No calf tenderness Psychiatric: Alert and oriented to person, place and time, Appropriate affect Intact judgement Neuro: Muscles Strength 5/5 in all 4 extremities, Sensation to light touch grossly present throughout, Cranial nerves II-XII grossly intact. No focal sensory deficits - Labs CBC & Chem 7: 06/08/19 04:30 06/08/19 04:30 Labs: Abnormal Lab Results - Last 24 Hours (Table) 06/08/19 06/08/19 06/08/19 Range/Units 12:08 17:40 20:09 POC Glucose (mg/dL) 119 H 105 H 105 H (75-99) mg/dL 06/09/19 Range/Units 06:50 POC Glucose (mg/dL) 120 H (75-99) mg/dL Microbiology - Last 24 Hours (Table) 06/08/19 Unknown Gram Stain - Preliminary Sputum Sputum Culture - Preliminary Assessment and Plan Assessment: Acute hypoxic respiratory failure secondary to COVID 19 pneumonia Hypokalemia Atrial flutter Sepsis likely due to COVID 19 along with UTI Hypertension Elevated troponin likely demand ischemia Hip tumor Patient was extubated on 06/04/2019. Plans: She has completed a course of azithromycin for concerns of acute bronchitis. Completed course of hydroxychloroquine for COVID infection. Also on zinc. Plans to repeat chest x- ray tomorrow morning. Follow d-dimer (slightly elevated), ferritin (slight increase), LDH (decreasing), CRP (increasing). Infectious disease following. Potassium 3.2. Plans: Replaced via protocol. Repeat BMP tomorrow morning. As seen on telemetry. Plans: Started on therapeutic Lovenox. Maintain potassium greater than 4 and magnesium greater than 2. Follow cardiology recommendations. Telemetry monitoring. Continue metoprolol. Plans: Management as above. Patient continued on cefepime BP elevated. Plans: Continue lisinopril and metoprolol. Monitor vitals, adjust medications as necessary. Her troponins are flat. Troponin 0.48, 0.195, 0.190. Likely demand ischemia from sepsis. Echocardiogram with no wall motion abnormalities. Plans: Cardiology evaluated, nothing further to do. Plans: Adequate pain management. [Patient extubated. Patient is in respiratory distress and deteriorating. CXR worsening. Pulmonology on board. Infectious disease following. Being treated for UTI and COVID 19 infection. Patient adamant about not being reintubated]
[2019-06-09 10:52] LABS: Glucose,Whole Blood 122 mg/dL (75-99)
[2019-06-09] MEDS ORDERED: CISATRACURIUM 2 MG/ML 5 ML VIAL IV ONE (11:11)
[2019-06-09 11:18] LABS: Potassium 3.8 mmol/L (3.5-5.1)
[2019-06-09 11:21] LABS: ALT 15 U/L (4-34); AST 18 U/L (14-36); African American GFR (CKD) >90 (>60 ml/min/1.73 sqM); Albumin 2.6 g/dL (3.5-5.0); Alkaline Phosphatase 188 U/L (38-126); Anion Gap 6 mmol/L; Blood Urea Nitrogen 16 mg/dL (7-17); Calcium 8.3 mg/dL (8.4-10.2); Carbon Dioxide 26 mmol/L (22-30); Chloride 100 mmol/L (98-107); Glucose 117 mg/dL (74-99); LDH 1589 U/L (313-618); Magnesium 1.7 mg/dL (1.6-2.3); Non-African American GFR(CKD) >90 (>60 ml/min/1.73 sqM); Sodium 132 mmol/L (137-145); Total Bilirubin 0.7 mg/dL (0.2-1.3); Total Protein 5.2 g/dL (6.3-8.2)
--- NOTE | 2019-06-09 11:41 | PCN ---
PROCEDURE NOTE PROCEDURE: Left internal jugular triple-lumen catheter. PREOPERATIVE DIAGNOSIS: Administration of fluids and pressors. POSTOPERATIVE DIAGNOSIS: Administration of fluids and pressors. HOUSING CASE MANAGER: Dr. Hanson and Wanda Garcia. TRIPLE LUMEN CATHETER PLACEMENT: Indication: Hemodynamic monitoring/Intravenous access. A time-out was completed verifying correct patient, procedure, site, positioning, and implant(s) or special equipment if applicable. The patient was placed in a dependent position appropriate for triple lumen catheter placement based on the vein to be cannulated. The patient's left neck was prepped and draped in sterile fashion. 1% Lidocaine was used to anesthetize the surrounding skin area. A triple lumen 9F Cordis catheter was introduced into the left internal jugular vein using Seldinger technique. The catheter was threaded smoothly over the guide wire and appropriate blood return was obtained. Each lumen of the catheter was evacuated of air and flushed with sterile saline. The catheter was then sutured in place to the skin and a sterile dressing applied. Perfusion to the extremity distal to the point of catheter insertion was checked and found to be adequate. There was informed consent and universal timeout. We used the left internal jugular vein posterior approach. It was placed without complication. The tip of catheter was seen in the junction of right atrium, superior vena cava. There was good blood return from all 3 ports. The catheter was sutured in place. There was no immediate complication. Sterile dressing was applied by the nurse. The patient tolerated the procedure well. MMODL / IJN: [id number] /
[2019-06-09 11:50] LABS: ABG Base Excess -5.8 mmol/L; ABG HCO3 22 mmol/L (21-25); ABG Oxygen Saturation 87.3 % (94-97); ABG PCO2 58 mmHg (35-45); ABG PH 7.21 (7.35-7.45); ABG PO2 74 mmHg (83-108); Allen Test Performed? Yes
[2019-06-09 11:52] LABS: C Reactive Protein 173.1 mg/L (<10.0)
--- NOTE | 2019-06-09 11:59 | XR ---
EXAMINATION TYPE: XR chest 1V portable DATE OF EXAM: 06/09/2019 COMPARISON: 06/09/2019 earlier in the day INDICATION: Tube placement central line placement TECHNIQUE: Single frontal view of the chest is obtained. FINDINGS: The heart size is prominent. The pulmonary vasculature is prominent. There is diffuse increased lung markings greater in the lower lobes bilaterally. This is increasing o charlee the interval. There is placement of an endotracheal tube with the tip 3.3 cm above the aung. Nasogastric tube tra nsverses the thorax the tip in the left upper quadrant of the abdomen. Left central venous catheter i s been placed with the tip in the right atrium. No pneumothorax is evident. IMPRESSION: 1. Increasing bilateral lung infiltrates. 2. Placement of an endotracheal tube, nasogastric tube and left central venous catheter discussed abo ve. No pneumothorax is evident
--- NOTE | 2019-06-09 12:02 | PCN ---
PROCEDURE NOTE PROCEDURE: Right radial art line. OPERATORS: Dr. Hanson, Hue Rodriguez, Reece Glass and Wanda Garcia. PREOPERATIVE DIAGNOSIS: Frequent blood gases and blood gas monitoring. POSTOPERATIVE DIAGNOSIS: Frequent blood gases and blood gas monitoring. ARTERIAL LINE PLACEMENT: Indications: Hemodynamic monitoring. A time-out was completed verifying correct patient, procedure, site, positioning, and implant(s) or special equipment if applicable. Azar's test was performed to ensure adequate perfusion. The patient's right wrist was prepped and draped in sterile fashion. 1% Lidocaine was used to anesthetize the area. An 18G Arrow arterial line was introduced into the right radial artery. The catheter was threaded over the guide wire and the needle was removed with appropriate pulsatile blood return. Blood loss was minimal. The catheter was then sutured in place to the skin and a sterile dressing applied. Perfusion to the extremity distal to the point of catheter insertion was checked and found to be adequate. The patient tolerated the procedure well and there were no complications. There was informed consent and universal timeout. The site was the right radial art site. There was no immediate complication. There was good blood return and waveform. The catheter was sutured in place. Sterile dressing was applied by the nurse. There was no immediate complication. MMODL / IJN: [id number] /
[2019-06-09 12:04] LABS: Anisocytosis Moderate; Basophils # (A) 0.1 k/uL (0-0.2); Basophils % (A) 1 %; Eosinophils # (A) 0.1 k/uL (0-0.7); Eosinophils % (A) 0 %; HCT 36.9 % (34.0-46.0); Hypochromasia Marked; Lymphocytes # (A) 0.9 k/uL (1.0-4.8); Lymphocytes % (A) 4 %; MCH 23.1 pg (25.0-35.0); MCHC 29.9 g/dL (31.0-37.0); MCV 77.5 fL (80.0-100.0); Mean Platelet Volume 11.1; Microcytosis Slight; Monocytes # (A) 0.7 k/uL (0-1.0); Monocytes % (A) 3 %; Neutrophils # (A) 19.5 k/uL (1.3-7.7); Neutrophils % (A) 91 %; Platelet Count 481 k/uL (150-450); Poikilocytosis Moderate; RBC 4.76 m/uL (3.80-5.40); RDW 20.4 % (11.5-15.5); WBC 21.5 k/uL (3.8-10.6)
[2019-06-09] MEDS: SODIUM CHLORIDE 0.9% 1,000 ML IV SCH (12:13)
[2019-06-09] MEDS: SODIUM CHLORIDE 0.9% 1,000 ML IV ONE ×4 (12:15→20:15)
[2019-06-09 12:26] LABS: Tear Drop Cells Present; Toxic Granulation Present
[2019-06-09] MEDS: NOREPINEPHRINE 8 MG in SODIUM CHLORIDE 0.9% 250 ML IV SCH ×2 (12:37→22:17)
[2019-06-09] MEDS ORDERED: SODIUM CHLORIDE 0.9% 1,000 ML IV ONE ×2 (13:04→18:18)
--- NOTE | 2019-06-09 13:18 | P.PN ---
Subjective Progress Note Date: 06/09/19 On 06/09/2019 patient seen in follow-up on selective care unit, we were called to the bedside for concern of increasing toxemia, patient was placed on 15 L high flow nasal cannula and her pulse ox would drop into the 70s, she was then placed on 100% nonrebreather, and she remained quite hypoxic with a pulse oxygen is 73-84%. At first she was adamant about not going back on life-support, however after she spoke to her children and after we spoke to her shoulder on the phone, she changed her mind and she decided to be a full code and agree to transfer to the intensive care unit and intubation. We are told by one of her daughters that her 3 days ago and they have not told their mother about his passing. Patient was becoming quite dyspneic and more distressed, she was transferred to the intensive care unit and emergently intubated and placed on assist-control mode of ventilation with a rate of 20, tidal volume of 450, FiO2 100% and PEEP of 5. Repeat blood gases showed pO2 74, pCO2 58, and pH of 7.21, and based on those blood gases her rate was increased to 26, and PEEP was increased to 10 cm of water. She was sedated, she is currently on Diprivan infusion, she did become hypotensive after intubation with the systolic in the 70s, she will be given 2 L and IV fluid boluses. She has been afebrile in last 24 hours, this was chest x-ray showed worsening bilateral lung infiltrates. Her labs after intubation showed white blood cell count 21.5, hemoglobin of 11, platelet count of 481, sodium of 132, potassium is 3.8, chloride is 100, CO2 is 26, BUN of 16 creatinine 0.43, her inflammatory markers have increased, with LDH at 1589, CRP of 173. Patient was on antibiotics for E. coli urinary tract infection and she is on cefepime, she has completed her course of Plaquenil. Central line and art line has been placed by Dr. Hanson after intubation. Follow-up chest x-ray showed increasing bilateral lung infiltrates, and placement of endotracheal tube and nasogastric tube and left central venous catheter in appropriate position without evidence of pneumothorax Objective - Vital Signs Vital signs: Vital Signs Temp 98.4 F 06/09/19 07:00 Pulse 89 06/09/19 12:30 Resp 29 H 06/09/19 12:30 BP 66/41 06/09/19 12:30 Pulse Ox 93 L 06/09/19 12:30 Intake & Output 06/08/19 06/09/19 06/09/19 18:59 06:59 18:59 Intake Total 240 50 11.984 Output Total 350 200 Balance -110 50 -188.016 Intake: IV 40 Sodium Chloride 0.9% 1, 40 000 ml @ 20 mls/hr IV . Q24H WENDI Rx#:[id number] Intake, IV Titration 11.984 Amount Norepinephrine 8 mg In 2.742 Sodium Chloride 0.9% 250 ml @ 0.05 MCG/KG/MIN 7. 153 mls/hr IV .Q24H WENDI Rx#:[id number] Propofol 1,000 mg In 9.242 Empty Bag 1 bag @ Titrate IV .Q0M WENDI Rx#: [id number] Oral 200 50 Output: Urine 150 Stool 200 200 Other: Voiding Method Indwelling Catheter Bedside Commode Bedside Commode Bedpan Bedpan # Voids 1 1 # Bowel Movements 1 1 ABP, PAP, CO, CI - Last Documented Arterial Blood Pressure 53/28 - Exam GENERAL EXAM: 78-year-old white female, intubated, sedated on mechanical ventilator HEAD: Normocephalic/atraumatic. EYES: Normal reaction of pupils, equal size. Conjunctiva pink, sclera white. NOSE: Clear with pink turbinates. THROAT: No erythema or exudates. NECK: No masses, no JVD, no thyroid enlargement, no adenopathy. CHEST: No chest wall deformity. Symmetrical expansion. LUNGS: Equal air entry with no crackles, wheeze, rhonchi or dullness. CVS: Regular rate and rhythm, normal S1 and S2, no gallops, no murmurs, no rubs ABDOMEN: Soft, nontender. No hepatosplenomegaly, normal bowel sounds, no guarding or rigidity. EXTREMITIES: No clubbing, no edema, no cyanosis, 2+ pulses and upper and lower extremities. MUSCULOSKELETAL: Muscle strength and tone normal. SPINE: No scoliosis or deformity SKIN: No rashes CENTRAL NERVOUS SYSTEM: Intubated, sedated. No focal deficits, tone is normal in all 4 extremities. - Labs CBC & Chem 7: 06/09/19 10:24 06/09/19 10:24 Labs: Abnormal Lab Results - Last 24 Hours (Table) 06/08/19 06/08/19 06/09/19 Range/Units 17:40 20:09 06:50 WBC (3.8-10.6) k/uL Hgb (11.4-16.0) gm/dL MCV (80.0-100.0) fL MCH (25.0-35.0) pg MCHC (31.0-37.0) g/dL RDW (11.5-15.5) % Plt Count (150-450) k/uL Neutrophils # (1.3-7.7) k/uL Lymphocytes # (1.0-4.8) k/uL ABG pH (7.35-7.45) ABG pCO2 (35-45) mmHg ABG pO2 (83-108) mmHg ABG O2 Saturation (94-97) % Sodium (137-145) mmol/L Creatinine (0.52-1.04) mg/dL Glucose (74-99) mg/dL POC Glucose (mg/dL) 105 H 105 H 120 H (75-99) mg/dL Calcium (8.4-10.2) mg/dL Alkaline Phosphatase (38-126) U/L Lactate Dehydrogenase (313-618) U/L C-Reactive Protein (<10.0) mg/L Total Protein (6.3-8.2) g/dL Albumin (3.5-5.0) g/dL 06/09/19 06/09/19 06/09/19 Range/Units 10:24 10:24 10:51 WBC 21.5 H (3.8-10.6) k/uL Hgb 11.0 L (11.4-16.0) gm/dL MCV 77.5 L (80.0-100.0) fL MCH 23.1 L (25.0-35.0) pg MCHC 29.9 L (31.0-37.0) g/dL RDW 20.4 H (11.5-15.5) % Plt Count 481 H (150-450) k/uL Neutrophils # 19.5 H (1.3-7.7) k/uL Lymphocytes # 0.9 L (1.0-4.8) k/uL ABG pH (7.35-7.45) ABG pCO2 (35-45) mmHg ABG pO2 (83-108) mmHg ABG O2 Saturation (94-97) % Sodium 132 L (137-145) mmol/L Creatinine 0.43 L (0.52-1.04) mg/dL Glucose 117 H (74-99) mg/dL POC Glucose (mg/dL) 122 H (75-99) mg/dL Calcium 8.3 L (8.4-10.2) mg/dL Alkaline Phosphatase 188 H (38-126) U/L Lactate Dehydrogenase 1589 H (313-618) U/L C-Reactive Protein 173.1 H (<10.0) mg/L Total Protein 5.2 L (6.3-8.2) g/dL Albumin 2.6 L (3.5-5.0) g/dL 06/09/19 Range/Units 11:45 WBC (3.8-10.6) k/uL Hgb (11.4-16.0) gm/dL MCV (80.0-100.0) fL MCH (25.0-35.0) pg MCHC (31.0-37.0) g/dL RDW (11.5-15.5) % Plt Count (150-450) k/uL Neutrophils # (1.3-7.7) k/uL Lymphocytes # (1.0-4.8) k/uL ABG pH 7.21 L (7.35-7.45) ABG pCO2 58 H (35-45) mmHg ABG pO2 74 L (83-108) mmHg ABG O2 Saturation 87.3 L (94-97) % Sodium (137-145) mmol/L Creatinine (0.52-1.04) mg/dL Glucose (74-99) mg/dL POC Glucose (mg/dL) (75-99) mg/dL Calcium (8.4-10.2) mg/dL Alkaline Phosphatase (38-126) U/L Lactate Dehydrogenase (313-618) U/L C-Reactive Protein (<10.0) mg/L Total Protein (6.3-8.2) g/dL Albumin (3.5-5.0) g/dL Microbiology - Last 24 Hours (Table) 06/08/19 Unknown Gram Stain - Preliminary Sputum Sputum Culture - Preliminary Assessment and Plan Plan: Assessment: #1. Acute hypoxemic and hypercapnic respiratory failure related to acute COVID 19 related pneumonia, today's chest x-ray on 05/31/2019 showed progressive worsening of the multifocal interstitial and alveolar opacities most pronounced in the right midlung. Patient required intubation and placement on mechanical ventilator on 05/31/2019, she was successfully weaned and extubated on 0. However today on 06/09/2019 patient has developed a worsening hypoxemia, requiring transfer back to the intensive care unit and reintubation and placement on mechanical ventilator #2. Nausea and vomiting, shortness of breath, diaphoresis and fatigue present on admission likely related to Covid 19 infection resolved #3. Elevated LDH, ferritin related to COVID 19 infection #4. Elevated troponins #5. Acute urinary tract infection, related to E. coli #6. History of hypertension #7. Depression #8. Recent history of large soft tissue mass involving the posterior right hip status post biopsy, results are pending #9. Ex-smoker Plan: Vent adjustments have been made, central line catheter and underlying catheters have been placed, follow-up chest x-ray shows worsening bilateral infiltrates and invasive lines ET tube are all in appropriate positions, without evidence of pneumothorax, will add steroids, follow-up inflammatory markers are elevated, d- dimer is pending for tomorrow, we spoke to the patient's daughters today on the phone, and spoke to the patient prior to intubation, initially patient was adamant about not going back on the ventilator however she later changed her mind and want to proceed with aggressive treatment including intubation and placement on mechanical ventilator, will continue same antibiotics, ID service is following. Will give the patient 2 L and IV fluid boluses, she may need vasopressor support, we'll send a sputum culture, blood culture, urine culture. Monitor fever pattern, monitor inflammatory markers and follow-up chest x-ray, patient may need to be considered for Tocilizumab or convalescent plasma will send interleukin-6 level. We'll continue to closely follow. Initiate nutritional support today. I performed a history & physical examination of the patient and discussed their management with my nurse practitioner, Hue Rodriguez. I reviewed the nurse practitioner's note and agree with the documented findings and plan of care. Lung sounds are positive for diminished breath sounds. The findings and the impression was discussed with the patient. I attest to the documentation by the nurse practitioner. Time with Patient: Greater than 30
[2019-06-09] MEDS: methylPREDNISolone SOD SUCCI 40 MG/ML 1 ML VIAL IV SCH ×2 (14:25→20:12)
[2019-06-09] MEDS: CISATRACURIUM 200 MG in SODIUM CHLORIDE 0.9% 180 ML IV SCH (15:46)
[2019-06-09 16:02] LABS: Ferritin 791.6 ng/mL (10.0-291.0)
--- NOTE | 2019-06-09 16:47 | PN ---
PROGRESS NOTE DATE OF SERVICE: 06/09/2019 REASON FOR FOLLOWUP: Acute COVID-19 pneumonia. INTERVAL HISTORY: The patient did go into respiratory distress and ended up getting intubated, has been transferred to the ICU. Patient currently did have borderline blood pressure and received fluid boluses in addition to the pressor support. She is currently 100% FiO2, sedated on the vent and unable to provide any history. PHYSICAL EXAMINATION: Blood pressure 108/73 with a pulse of 100, temperature of 98.4. She is 93% on 100% FiO2. General description is an elderly female, intubated on the vent. RESPIRATORY SYSTEM: Unlabored breathing, coarse breath sounds bilaterally, no wheeze. HEART: S1, S2. Regular rate and rhythm. ABDOMEN: Soft, no tenderness. LABS: Hemoglobin is 11, white count 1.5, BUN of 16, creatinine 0.43. LDH and CRP elevated. DIAGNOSTIC IMPRESSION AND PLAN: Patient has acute respiratory failure which is likely multifactorial. The patient did have a confirmed case of COVID-19 and she did initially improve, but now has crashed again and has to be re-intubated. We will keep her current course of Plaquenil. She is on cefepime to cover for bacterial infection. . Overall prognosis remains to be guarded. Continue supportive care. MMODL / IJN: [id number] / LOGAN
[2019-06-09] MEDS ORDERED: fentaNYL (PF) 50 MCG/ML 2 ML AMP IVP STA (18:03)
[2019-06-09 18:04] LABS: Glucose,Whole Blood 157 mg/dL (75-99)
[2019-06-09 18:17] LABS: Appearance,Urine Clear (Clear); Bacteria,Urine Rare /hpf; Bilirubin,Urine Negative (Negative); Blood,Urine Negative (Negative); Budding Yeast,Urine Few /hpf; Color,Urine Yellow; Glucose,Urine (UA) Negative (Negative); Ketones,Urine Negative (Negative); Leukocyte Esterase,Urine Small (Negative); Mucus,Urine Many /hpf; Nitrite,Urine Negative (Negative); Protein,Urine 1+ (Negative); RBC,Urine 4 /hpf (0-5); Specific Gravity,Urine 1.023 (1.001-1.035); Squamous Epithelial Cell,Urine <1 /hpf (0-4); Urobilinogen,Urine <2.0 mg/dL (<2.0); WBC,Urine 27 /hpf (0-5)
[2019-06-09] MEDS: ARTIFICIAL TEARS-HYPROMELLOSE DROPS 15 ML BTL BOTH EYES SCH ×2 (19:43→23:54)
[2019-06-09] MEDS: CHLORHEXIDINE GLUCONATE 15 ML CUP MUCOUS MEM SCH (20:12)
[2019-06-09] MEDS: HYDROXYCHLOROQUINE ORAL SUSP 200 MG/8 ML ORAL.SYRG PO SCH (20:13)
[2019-06-09] MEDS ORDERED: HYDROXYCHLOROQUINE SULFATE 200 MG TAB PO SCH (21:00)
[2019-06-09] MEDS ORDERED: FUROSEMIDE 10 MG/ML 4 ML VIAL IV STA (21:21)
[2019-06-09 23:32] LABS: Glucose,Whole Blood 159 mg/dL (75-99)
[2019-06-10] MEDS: NOREPINEPHRINE 8 MG in SODIUM CHLORIDE 0.9% 250 ML IV SCH ×4 (02:46→23:24)
[2019-06-10] MEDS: ARTIFICIAL TEARS-HYPROMELLOSE DROPS 15 ML BTL BOTH EYES SCH ×6 (03:20→23:23)
[2019-06-10 04:22] LABS: Anisocytosis Moderate; HGB 11.5 gm/dL (11.4-16.0); Hypochromasia Marked; MCH 22.9 pg (25.0-35.0); MCHC 28.8 g/dL (31.0-37.0); MCV 79.5 fL (80.0-100.0); Mean Platelet Volume 9.1; Microcytosis Slight; Poikilocytosis Moderate; RBC 5.02 m/uL (3.80-5.40); RDW 20.1 % (11.5-15.5)
[2019-06-10 04:39] LABS: Platelet Count 1248 k/uL (150-450); WBC 90.6 k/uL (3.8-10.6)
[2019-06-10 04:41] LABS: Albumin 2.8 g/dL (3.5-5.0); Calcium 8.6 mg/dL (8.4-10.2); Potassium 5.4 mmol/L (3.5-5.1); Total Bilirubin 1.3 mg/dL (0.2-1.3); Total Protein 5.5 g/dL (6.3-8.2)
[2019-06-10 04:47] LABS: Band Neutrophils % 14 %; Eosinophils # (M) 2.72 k/uL (0-0.7); Lymphocytes # (M) 6.34 k/uL (1.0-4.8); Metamyelocytes # (M) 1.81 k/uL (0); Metamyelocytes % 2 %; Monocytes # (M) 2.72 k/uL (0-1.0); Myelocytes # (M) 0.91 k/uL (0); Myelocytes % 1 %; Neutrophils % (M) 70 %; Nucleated Red Blood Cells 0 /100 WBC (0-0); Total Cells Counted 200
[2019-06-10 04:48] LABS: Anisocytosis (M) Present; Ovalocytes Present; Poikilocytosis (M) Present; Tear Drop Cells Present
[2019-06-10 04:49] LABS: Large Platelets Present; Toxic Granulation Present
[2019-06-10 05:03] LABS: C Reactive Protein 242.9 mg/L (<10.0)
[2019-06-10 05:19] LABS: ABG Base Excess -15.7 mmol/L; ABG HCO3 15 mmol/L (21-25); ABG Oxygen Saturation 93.3 % (94-97); ABG PCO2 56 mmHg (35-45); ABG PO2 86 mmHg (83-108); ABG TCO2 17 mmol/L (19-24)
[2019-06-10 05:23] LABS: ABG PH 7.04 (7.35-7.45)
[2019-06-10 05:31] LABS: Glucose,Whole Blood 139 mg/dL (75-99)
[2019-06-10] MEDS ORDERED: SODIUM BICARB 8.4% 50 ML SYR (1 MEQ/ML) IV STA (05:51)
[2019-06-10] MEDS: INSULIN ASPART (NovoLOG) 100 UNIT/ML VIAL SQ SCH ×5 (06:05→23:30)
[2019-06-10 06:16] LABS: Magnesium 1.9 mg/dL (1.6-2.3)
[2019-06-10] MEDS: DEXTROSE 5% IN WATER 1,000 ML with SODIUM BICARB (1 MEQ/ML) 150 ML IV SCH ×2 (06:30→21:12)
[2019-06-10 06:36] LABS: Phosphorus 9.2 mg/dL (2.5-4.5)
--- NOTE | 2019-06-10 07:43 | XR ---
EXAMINATION TYPE: XR chest 1V DATE OF EXAM: 06/10/2019 COMPARISON: 06/09/2019 HISTORY: SOB, Follow Up FINDINGS: Indwelling tubes and catheters are unchanged. Persistent but improved airspace infiltrates with superimposed interstitial infiltrates noted as well . Small bilateral pleural effusions. Stable appearance of the cardio-mediastinal structures at this time. IMPRESSION: 1. Moderate interval improvement noted. Clinical correlation and follow up until resolution is recomm ended.
[2019-06-10] MEDS ORDERED: VANCOMYCIN IV PER PHARMACY 1 EACH MISC MISCELLANE PRN ×2 (08:41→14:35)
[2019-06-10] MEDS: ALBUTEROL HFA INHALER INHALATION PRN ×2 (08:47→11:36)
[2019-06-10] MEDS: CEFEPIME 2 GM in SODIUM CHLORIDE 0.9% 100 ML IVPB SCH ×2 (08:51→19:53)
[2019-06-10] MEDS: ZINC SULFATE 220 MG CAP PO SCH (08:52)
[2019-06-10] MEDS: ASCORBIC ACID 500 MG TAB PO SCH ×2 (08:52→19:53)
[2019-06-10] MEDS: CHLORHEXIDINE GLUCONATE 15 ML CUP MUCOUS MEM SCH ×2 (08:52→19:53)
[2019-06-10] MEDS: ENOXAPARIN 60 MG/0.6 ML SYRINGE SQ SCH ×2 (08:52→19:53)
[2019-06-10] MEDS: ASPIRIN 81 MG PO SCH (08:52)
[2019-06-10] MEDS: CISATRACURIUM 200 MG in SODIUM CHLORIDE 0.9% 180 ML IV SCH (08:53)
[2019-06-10] MEDS: CHOLESTYRAMINE (WITH SUGAR) 4 GM PACKET OG-TUBE SCH ×3 (08:53→19:40)
[2019-06-10] MEDS: methylPREDNISolone SOD SUCCI 40 MG/ML 1 ML VIAL IV SCH ×2 (08:53→19:53)
[2019-06-10] MEDS: PANTOPRAZOLE 40 MG/10 ML VIAL IVP SCH (08:53)
[2019-06-10] MEDS: HYDROXYCHLOROQUINE ORAL SUSP 200 MG/8 ML ORAL.SYRG PO SCH ×2 (08:54→20:06)
[2019-06-10] MEDS ORDERED: VANCOMYCIN 1,500 MG in SODIUM CHLORIDE 0.9% 250 ML IVPB ONE (09:30)
[2019-06-10] MEDS ORDERED: SODIUM CHLORIDE 0.9% 1,000 ML IV ONE (09:42)
[2019-06-10] MEDS ORDERED: FUROSEMIDE 10 MG/ML 10 ML VIAL IV STA (10:09)
--- NOTE | 2019-06-10 11:00 | P.PN ---
Subjective Progress Note Date: 06/10/19 On 06/09/2019 patient seen in follow-up on [facility] care unit, we were called to the bedside for concern of increasing toxemia, patient was placed on 15 L high flow nasal cannula and her pulse ox would drop into the 70s, she was then placed on 100% nonrebreather, and she remained quite hypoxic with a pulse oxygen is 73-84%. At first she was adamant about not going back on life-support, however after she spoke to her children and after we spoke to her shoulder on the phone, she changed her mind and she decided to be a full code and agree to transfer to the intensive care unit and intubation. We are told by one of her daughters that her 3 days ago and they have not told their mother about his passing. Patient was becoming quite dyspneic and more distressed, she was transferred to the intensive care unit and emergently intubated and placed on assist-control mode of ventilation with a rate of 20, tidal volume of 450, FiO2 100% and PEEP of 5. Repeat blood gases showed pO2 74, pCO2 58, and pH of 7.21, and based on those blood gases her rate was increased to 26, and PEEP was increased to 10 cm of water. She was sedated, she is currently on Diprivan infusion, she did become hypotensive after intubation with the systolic in the 70s, she will be given 2 L and IV fluid boluses. She has been afebrile in last 24 hours, this was chest x-ray showed worsening bilateral lung infiltrates. Her labs after intubation showed white blood cell count 21.5, hemoglobin of 11, platelet count of 481, sodium of 132, potassium is 3.8, chloride is 100, CO2 is 26, BUN of 16 creatinine 0.43, her inflammatory markers have increased, with LDH at 1589, CRP of 173. Patient was on antibiotics for E. coli urinary tract infection and she is on cefepime, she has completed her course of Plaquenil. Central line and art line has been placed by Dr. Hanson after intubation. Follow-up chest x-ray showed increasing bilateral lung infiltrates, and placement of endotracheal tube and nasogastric tube and left central venous catheter in appropriate position without evidence of pneumothorax Today on all 06/10/2019 patient seen in follow-up in the intensive care unit. She is sedated, intubated, on mechanical ventilator, current vent settings are assist-control mode of ventilation with a rate of 30, tidal volume of 350, FiO2 65% and PEEP of 10, pulse ox 96%, this morning his blood gases were reviewed showing pO2 of 86, pCO2 56, and pH of 7.04, and patient's rate had since been increased to 30 breaths per minute, and she was given 3 A of sodium bicarbonate. Patient is tachycardic on the monitor, A. fib with a rate of 103-120 BPM, sometimes the rate reaches up to 150 BPM, yesterday she was fluid resuscitated with 3 L of IV fluid boluses, her maintenance IV is 0.9 normal saline at 20, which will be switched to D5 and water with 3 A of bicarbonate at 75 ML per hour. We will set is at 21 mics per minute, Nimbex is at 2 mics per kilo per hour, Diprivan is at 70 mics per kilo per minute. Her CVP is about 12, patient has been extremely oliguric, today's labs have been reviewed doing well blood cell count critically high at 98.6, hemoglobin is 11.5, platelet count is 1248, neutrophils are 76.10, lymphocytes is 6.34, there is evidence of toxic granulation on the differential. 14% bandemia present, d-dimer is 0.83, sodium is 136, potassium is 5.4, chloride is 106, CO2 16, patient is in acute kidney injury, with B1 up to 26, creatinine is 1.15, AST is 93, ALT is 120, alkaline phosphatase 253, LDH has increased, 2 2650, CRP is 242, urinalysis is collected showing small leuks, and white blood cell count is 27, with a few yeast and rare bacteria. Urine culture, sputum culture and blood cultures have been sent and are pending at this time, patient has been on cefepime, we will add vancomycin today for empiric antibiotic coverage for possibility of hospital-acquired sep sis. Patient remains critically ill. [place] 6 level was sent yesterday, patient has been restarted on Plaquenil by ID service. Objective - Vital Signs Vital signs: Vital Signs Temp 97.0 F L 06/10/19 08:00 Pulse 151 H 06/10/19 09:45 Resp 30 H 06/10/19 09:45 BP 103/59 04/16/20 08:15 Pulse Ox 94 L 06/10/19 09:45 Intake & Output 06/09/19 06/10/19 06/10/19 18:59 06:59 18:59 Intake Total 2344.413 1590.831 504.379 Output Total 470 45 225 Balance 8544.628 5858.831 279.379 Weight 71 kg 71 kg Intake: IV 184 552 72 Normal Saline Pressure 24 72 12 Bag Sodium Chloride 0.9% 1, 160 480 60 000 ml @ 20 mls/hr IV . Q24H WENDI Rx#:[id number] Intake, IV Titration 2160.413 1038.831 432.379 Amount Cisatracurium 200 mg In 151.859 Sodium Chloride 0.9% 180 ml @ 2 MCG/KG/MIN 8.872 mls/hr IV .[id number] WENDI Rx #:[id number] Dextrose 5% in Water 1, 75 000 ml @ 75 mls/hr IV . [id number] WENDI with Sodium Bicarb (1 Meq/ml) 150 ml Rx#:[id number] Norepinephrine 8 mg In 2.742 771.258 104.485 Sodium Chloride 0.9% 250 ml @ 0.05 MCG/KG/MIN 7. 153 mls/hr IV .Q24H WENDI Rx#:[id number] Propofol 1,000 mg In 157.671 267.573 101.035 Empty Bag 1 bag @ Titrate IV .Q0M WENDI Rx#: [id number] Sodium Chloride 0.9% 1, 2000 000 ml @ 999 mls/hr IV . Q1H1M ONE Rx#:[id number] Output: Gastric Drainage 225 Urine 270 45 0 Stool 200 Other: Voiding Method Indwelling Catheter Indwelling Catheter Indwelling Catheter ABP, PAP, CO, CI - Last Documented Arterial Blood Pressure 98/50 - Exam GENERAL EXAM: 78-year-old white female, intubated, sedated on mechanical ventilator. Patient is tachycardic, and A. fib RVR with a rate of 120-150 BPM, she is paralyzed, sedated, she is hypotensive, on 21 mics per minute of Levophed, and patient is oliguric HEAD: Normocephalic/atraumatic. EYES: Normal reaction of pupils, equal size. Conjunctiva pink, sclera white. NOSE: Clear with pink turbinates. THROAT: No erythema or exudates. NECK: No masses, no JVD, no thyroid enlargement, no adenopathy. CHEST: No chest wall deformity. Symmetrical expansion. LUNGS: Equal air entry with no crackles, wheeze, rhonchi or dullness. CVS: Regular rate and rhythm, normal S1 and S2, no gallops, no murmurs, no rubs ABDOMEN: Soft, nontender. No hepatosplenomegaly, normal bowel sounds, no guard ing or rigidity. EXTREMITIES: No clubbing, no edema, no cyanosis, 2+ pulses and upper and lower extremities. MUSCULOSKELETAL: Muscle strength and tone normal. SPINE: No scoliosis or deformity SKIN: No rashes CENTRAL NERVOUS SYSTEM: Intubated, sedated. No focal deficits, tone is normal in all 4 extremities. - Labs CBC & Chem 7: 06/10/19 03:51 06/10/19 03:51 Labs: Abnormal Lab Results - Last 24 Hours (Table) 06/09/19 06/09/19 06/09/19 Range/Units 10:24 10:24 10:51 WBC 21.5 H (3.8-10.6) k/uL Hgb 11.0 L (11.4-16.0) gm/dL MCV 77.5 L (80.0-100.0) fL MCH 23.1 L (25.0-35.0) pg MCHC 29.9 L (31.0-37.0) g/dL RDW 20.4 H (11.5-15.5) % Plt Count 481 H (150-450) k/uL Neutrophils # 19.5 H (1.3-7.7) k/uL Neutrophils # (Manual) (1.3-7.7) k/uL Lymphocytes # 0.9 L (1.0-4.8) k/uL Lymphocytes # (Manual) (1.0-4.8) k/uL Monocytes # (Manual) (0-1.0) k/uL Eosinophils # (Manual) (0-0.7) k/uL Metamyelocytes # (Man) (0) k/uL Myelocytes # (Manual) (0) k/uL D-Dimer (<0.60) mg/L FEU ABG pH (7.35-7.45) ABG pCO2 (35-45) mmHg ABG pO2 (83-108) mmHg ABG HCO3 (21-25) mmol/L ABG Total CO2 (19-24) mmol/L ABG O2 Saturation (94-97) % Sodium 132 L (137-145) mmol/L Potassium (3.5-5.1) mmol/L Carbon Dioxide (22-30) mmol/L BUN (7-17) mg/dL Creatinine 0.43 L (0.52-1.04) mg/dL Glucose 117 H (74-99) mg/dL POC Glucose (mg/dL) 122 H (75-99) mg/dL Calcium 8.3 L (8.4-10.2) mg/dL Phosphorus (2.5-4.5) mg/dL Ferritin 791.6 H (10.0-291.0) ng/mL AST (14-36) U/L ALT (4-34) U/L Alkaline Phosphatase 188 H (38-126) U/L Lactate Dehydrogenase 1589 H (313-618) U/L CK-MB (CK-2) (0.0-2.4) ng/mL C-Reactive Protein 173.1 H (<10.0) mg/L Total Protein 5.2 L (6.3-8.2) g/dL Albumin 2.6 L (3.5-5.0) g/dL Urine Protein (Negative) Ur Leukocyte Esterase (Negative) Urine WBC (0-5) /hpf Urine Bacteria (None) /hpf Urine Mucus (None) /hpf Urine Yeast (Budding) (None) /hpf 06/09/19 06/09/19 06/09/19 Range/Units 11:45 18:00 18:02 WBC (3.8-10.6) k/uL Hgb (11.4-16.0) gm/dL MCV (80.0-100.0) fL MCH (25.0-35.0) pg MCHC (31.0-37.0) g/dL RDW (11.5-15.5) % Plt Count (150-450) k/uL Neutrophils # (1.3-7.7) k/uL Neutrophils # (Manual) (1.3-7.7) k/uL Lymphocytes # (1.0-4.8) k/uL Lymphocytes # (Manual) (1.0-4.8) k/uL Monocytes # (Manual) (0-1.0) k/uL Eosinophils # (Manual) (0-0.7) k/uL Metamyelocytes # (Man) (0) k/uL Myelocytes # (Manual) (0) k/uL D-Dimer (<0.60) mg/L FEU ABG pH 7.21 L (7.35-7.45) ABG pCO2 58 H (35-45) mmHg ABG pO2 74 L (83-108) mmHg ABG HCO3 (21-25) mmol/L ABG Total CO2 (19-24) mmol/L ABG O2 Saturation 87.3 L (94-97) % Sodium (137-145) mmol/L Potassium (3.5-5.1) mmol/L Carbon Dioxide (22-30) mmol/L BUN (7-17) mg/dL Creatinine (0.52-1.04) mg/dL Glucose (74-99) mg/dL POC Glucose (mg/dL) 157 H (75-99) mg/dL Calcium (8.4-10.2) mg/dL Phosphorus (2.5-4.5) mg/dL Ferritin (10.0-291.0) ng/mL AST (14-36) U/L ALT (4-34) U/L Alkaline Phosphatase (38-126) U/L Lactate Dehydrogenase (313-618) U/L CK-MB (CK-2) (0.0-2.4) ng/mL C-Reactive Protein (<10.0) mg/L Total Protein (6.3-8.2) g/dL Albumin (3.5-5.0) g/dL Urine Protein 1+ H (Negative) Ur Leukocyte Esterase Small H (Negative) Urine WBC 27 H (0-5) /hpf Urine Bacteria Rare H (None) /hpf Urine Mucus Many H (None) /hpf Urine Yeast (Budding) Few H (None) /hpf 06/09/19 06/10/19 06/10/19 Range/Units 23:30 03:50 03:50 WBC (3.8-10.6) k/uL Hgb (11.4-16.0) gm/dL MCV (80.0-100.0) fL MCH (25.0-35.0) pg MCHC (31.0-37.0) g/dL RDW (11.5-15.5) % Plt Count (150-450) k/uL Neutrophils # (1.3-7.7) k/uL Neutrophils # (Manual) (1.3-7.7) k/uL Lymphocytes # (1.0-4.8) k/uL Lymphocytes # (Manual) (1.0-4.8) k/uL Monocytes # (Manual) (0-1.0) k/uL Eosinophils # (Manual) (0-0.7) k/uL Metamyelocytes # (Man) (0) k/uL Myelocytes # (Manual) (0) k/uL D-Dimer (<0.60) mg/L FEU ABG pH (7.35-7.45) ABG pCO2 (35-45) mmHg ABG pO2 (83-108) mmHg ABG HCO3 (21-25) mmol/L ABG Total CO2 (19-24) mmol/L ABG O2 Saturation (94-97) % Sodium (137-145) mmol/L Potassium (3.5-5.1) mmol/L Carbon Dioxide (22-30) mmol/L BUN (7-17) mg/dL Creatinine (0.52-1.04) mg/dL Glucose (74-99) mg/dL POC Glucose (mg/dL) 159 H (75-99) mg/dL Calcium (8.4-10.2) mg/dL Phosphorus 9.2 H* (2.5-4.5) mg/dL Ferritin (10.0-291.0) ng/mL AST (14-36) U/L ALT (4-34) U/L Alkaline Phosphatase (38-126) U/L Lactate Dehydrogenase (313-618) U/L CK-MB (CK-2) 3.7 H (0.0-2.4) ng/mL C-Reactive Protein (<10.0) mg/L Total Protein (6.3-8.2) g/dL Albumin (3.5-5.0) g/dL Urine Protein (Negative) Ur Leukocyte Esterase (Negative) Urine WBC (0-5) /hpf Urine Bacteria (None) /hpf Urine Mucus (None) /hpf Urine Yeast (Budding) (None) /hpf 06/10/19 06/10/19 06/10/19 Range/Units 03:51 03:51 03:51 WBC 90.6 H* (3.8-10.6) k/uL Hgb (11.4-16.0) gm/dL MCV 79.5 L (80.0-100.0) fL MCH 22.9 L (25.0-35.0) pg MCHC 28.8 L (31.0-37.0) g/dL RDW 20.1 H (11.5-15.5) % Plt Count 1248 H* D (150-450) k/uL Neutrophils # (1.3-7.7) k/uL Neutrophils # (Manual) 76.10 H (1.3-7.7) k/uL Lymphocytes # (1.0-4.8) k/uL Lymphocytes # (Manual) 6.34 H (1.0-4.8) k/uL Monocytes # (Manual) 2.72 H (0-1.0) k/uL Eosinophils # (Manual) 2.72 H (0-0.7) k/uL Metamyelocytes # (Man) 1.81 H (0) k/uL Myelocytes # (Manual) 0.91 H (0) k/uL D-Dimer 0.83 H (<0.60) mg/L FEU ABG pH (7.35-7.45) ABG pCO2 (35-45) mmHg ABG pO2 (83-108) mmHg ABG HCO3 (21-25) mmol/L ABG Total CO2 (19-24) mmol/L ABG O2 Saturation (94-97) % Sodium 136 L (137-145) mmol/L Potassium 5.4 H (3.5-5.1) mmol/L Carbon Dioxide 16 L (22-30) mmol/L BUN 26 H (7-17) mg/dL Creatinine 1.15 H (0.52-1.04) mg/dL Glucose 153 H (74-99) mg/dL POC Glucose (mg/dL) (75-99) mg/dL Calcium (8.4-10.2) mg/dL Phosphorus (2.5-4.5) mg/dL Ferritin (10.0-291.0) ng/mL AST 93 H (14-36) U/L ALT 120 H (4-34) U/L Alkaline Phosphatase 253 H (38-126) U/L Lactate Dehydrogenase 2650 H (313-618) U/L CK-MB (CK-2) (0.0-2.4) ng/mL C-Reactive Protein 242.9 H (<10.0) mg/L Total Protein 5.5 L (6.3-8.2) g/dL Albumin 2.8 L (3.5-5.0) g/dL Urine Protein (Negative) Ur Leukocyte Esterase (Negative) Urine WBC (0-5) /hpf Urine Bacteria (None) /hpf Urine Mucus (None) /hpf Urine Yeast (Budding) (None) /hpf 06/10/19 06/10/19 Range/Units 05:12 05:30 WBC (3.8-10.6) k/uL Hgb (11.4-16.0) gm/dL MCV (80.0-100.0) fL MCH (25.0-35.0) pg MCHC (31.0-37.0) g/dL RDW (11.5-15.5) % Plt Count (150-450) k/uL Neutrophils # (1.3-7.7) k/uL Neutrophils # (Manual) (1.3-7.7) k/uL Lymphocytes # (1.0-4.8) k/uL Lymphocytes # (Manual) (1.0-4.8) k/uL Monocytes # (Manual) (0-1.0) k/uL Eosinophils # (Manual) (0-0.7) k/uL Metamyelocytes # (Man) (0) k/uL Myelocytes # (Manual) (0) k/uL D-Dimer (<0.60) mg/L FEU ABG pH 7.04 L* (7.35-7.45) ABG pCO2 56 H (35-45) mmHg ABG pO2 (83-108) mmHg ABG HCO3 15 L (21-25) mmol/L ABG Total CO2 17 L (19-24) mmol/L ABG O2 Saturation 93.3 L (94-97) % Sodium (137-145) mmol/L Potassium (3.5-5.1) mmol/L Carbon Dioxide (22-30) mmol/L BUN (7-17) mg/dL Creatinine (0.52-1.04) mg/dL Glucose (74-99) mg/dL POC Glucose (mg/dL) 139 H (75-99) mg/dL Calcium (8.4-10.2) mg/dL Phosphorus (2.5-4.5) mg/dL Ferritin (10.0-291.0) ng/mL AST (14-36) U/L ALT (4-34) U/L Alkaline Phosphatase (38-126) U/L Lactate Dehydrogenase (313-618) U/L CK-MB (CK-2) (0.0-2.4) ng/mL C-Reactive Protein (<10.0) mg/L Total Protein (6.3-8.2) g/dL Albumin (3.5-5.0) g/dL Urine Protein (Negative) Ur Leukocyte Esterase (Negative) Urine WBC (0-5) /hpf Urine Bacteria (None) /hpf Urine Mucus (None) /hpf Urine Yeast (Budding) (None) /hpf Microbiology - Last 24 Hours (Table) 06/09/19 18:00 Urine Culture - Preliminary Urine,Voided 06/08/19 Unknown Gram Stain - Preliminary Sputum Sputum Culture - Preliminary Assessment and Plan Plan: Assessment: #1. Septic shock with the source possibly related to urinary tract infection, and pneumonia, cultures have been sent, are pending at this time. Patient is covered with cefepime, will add vancomycin #2. Severe anion gap metabolic acidosis related to sepsis #3. Acute hypoxemic and hypercapnic respiratory failure related to acute COVID 19 related pneumonia, today's chest x-ray on 05/31/2019 showed progressive worsening of the multifocal interstitial and alveolar opacities most pronounced in the right midlung. Patient required intubation and placement on mechanical ventilator on 05/31/2019, she was successfully weaned and extubated on 06/04/2019. However today on 06/09/2019 patient has developed a worsening hypoxemia, requiring transfer back to the intensive care unit and reintubation and placement on mechanical ventilator #4. Acute kidney injury #5. A. fib with RVR related to sepsis #6. Acute leukocytosis, bandemia, likely related to acute sepsis #7. Elevated LDH, ferritin related to COVID 19 infection #8. Elevated troponins #9. Acute urinary tract infection, related to E. coli #10. History of hypertension #11. Depression #12. Recent history of large soft tissue mass involving the posterior right hip status post biopsy, results are pending #13. Ex-smoker Plan: Vent adjustments have been made, PEEP has been increased to 15, and FiO2 has been dropped down to 55, today's blood gases and chest x-rays have been reviewed, patient was seen and evaluated along with Dr. Hanson. We'll start bicarbonate infusion at 75 ML per hour we'll give the patient additional liter and IV fluid boluses, we will add vancomycin in addition to cefepime, patient has been pancultured, cultures are pending. Interleukin-6 level has been sent, and is pending, patient has been restarted on Plaquenil by ID service. We'll continue to treat supportively, prognosis is extremely guarded. I performed a history & physical examination of the patient and discussed their management with my nurse practitioner, Hue Rodriguez. I reviewed the nurse practitioner's note and agree with the documented findings and plan of care. Lung sounds are positive for diminished breath sounds. The findings and the impression was discussed with the patient. I attest to the documentation by the nurse practitioner. Time with Patient: Greater than 30
--- NOTE | 2019-06-10 11:07 | P.NPCON ---
History of Present Illness - Reason for Consult acute renal failure - History of Present Illness Reason for consultation: Acute kidney injury history of present illness: Patient is a 78-year-old female seen in renal consultation for acute kidney injury. Her baseline creatinine is 1 and is up to 1.15 today. Patient is positive for coronavirus. This is second time she has been intubated. She is on 55% FiO2. She is currently on Levophed. She is also noted to be tachycardic and has been receiving IV fluid boluses. She has received a total of 4 L in the last 2 days. Tube feeding is supposed to be started today. Her white count is up to 90.6. She received Lasix 40 mg IV once last night with no significant response in her urine output. Urine output is about 5 mL an hour. She is noted to be mildly hyperkalemic with potassium level of 5. fours morning. She is also acidotic with bicarb level of 16. Her pH this morning was 7.04. She was afebrile this morning. However heart rate is in the 140s. Blood pressure is in the systolic 90s. Vital signs : She is tachycardic. She is also on Levophed. Respiratory rate 30. General: The patient appeared well nourished and normally developed. HEENT: Intubated. HEART: Tachycardic. ABDOMEN: No distention noted. 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 History of Any Multi-Drug Resistant Organisms: None Reported Past Surgical History: Cholecystectomy, Hysterectomy, Orthopedic Surgery Additional Past Surgical History / Comment(s): bowel suspension,throat polyp removed,adhesions removed,lt shoulder Past Anesthesia/Blood Transfusion Reactions: No Reported Reaction Past Psychological History: Depression Smoking Status: Former smoker Past Alcohol Use History: Occasional Past Drug Use History: None Reported - Past Family History Father Additional Family Medical History / Comment(s): pancreatic CA Mother Additional Family Medical History / Comment(s): Colon CA Medications and Allergies Home Medications Medication Instructions Recorded Confirmed Type Fosinopril [Monopril] 10 mg PO HS 05/26/19 05/26/19 History PARoxetine HCL [Paxil] 10 mg PO DAILY 05/26/19 05/26/19 History Allergies Allergy/AdvReac Type Severity Reaction Status Date / Time No Known Allergies Allergy Verified 05/26/19 15:42 Physical Exam Vitals: Vital Signs Temp Pulse Resp BP Pulse Ox 06/10/19 09:45 151 H 30 H 94 L 06/10/19 09:30 152 H 30 H 93 L 06/10/19 09:15 141 H 30 H 92 L 06/10/19 09:00 141 H 30 H 94 L 06/10/19 08:45 138 H 30 H 95 06/10/19 08:30 141 H 30 H 95 06/10/19 08:15 115 H 30 H 103/59 96 06/10/19 08:00 97.0 F L 118 H 30 H 133/71 96 06/10/19 07:45 111 H 30 H 115/66 97 06/10/19 07:30 114 H 30 H 82/39 97 06/10/19 07:15 113 H 30 H 88/54 96 06/10/19 07:00 109 H 30 H 126/52 94 L 06/10/19 06:45 130 H 30 H 110/70 96 06/10/19 06:30 122 H 30 H 143/76 96 06/10/19 06:15 117 H 30 H 112/71 96 06/10/19 06:00 130 H 26 H 101/64 95 06/10/19 05:45 147 H 26 H 104/60 95 06/10/19 05:30 137 H 26 H 83/40 96 06/10/19 05:15 134 H 26 H 105/55 94 L 06/10/19 05:00 130 H 26 H 103/59 93 L 06/10/19 04:45 141 H 26 H 91/59 93 L 06/10/19 04:30 138 H 26 H 95/70 93 L 06/10/19 04:15 156 H 26 H 102/43 93 L 06/10/19 04:00 98.2 F 131 H 26 H 99/66 93 L 06/10/19 03:45 133 H 26 H 96/54 93 L 06/10/19 03:30 144 H 26 H 74/62 94 L 06/10/19 03:15 149 H 20 75/45 93 L 06/10/19 03:00 129 H 26 H 108/77 93 L 06/10/19 02:45 140 H 26 H 98/62 93 L 06/10/19 02:30 146 H 26 H 94/79 93 L 06/10/19 02:15 121 H 26 H 87/68 93 L 06/10/19 02:00 121 H 26 H 80/55 94 L 06/10/19 01:45 129 H 26 H 96/65 93 L 06/10/19 01:30 130 H 26 H 100/60 93 L 06/10/19 01:15 136 H 26 H 86/44 93 L 06/10/19 01:00 142 H 26 H 104/56 92 L 06/10/19 00:45 121 H 26 H 97/53 92 L 06/10/19 00:30 141 H 26 H 99/43 92 L 06/10/19 00:15 120 H 26 H 106/64 92 L 06/10/19 00:00 98.4 F 130 H 26 H 94/62 93 L 06/09/19 23:45 121 H 26 H 97/68 91 L 06/09/19 23:30 135 H 26 H 94/57 95 06/09/19 23:15 137 H 26 H 105/64 95 06/09/19 23:00 147 H 26 H 98/71 95 06/09/19 22:45 140 H 26 H 102/89 95 06/09/19 22:30 147 H 26 H 86/66 95 06/09/19 22:15 140 H 26 H 102/47 97 06/09/19 22:00 133 H 26 H 83/58 96 06/09/19 21:45 131 H 26 H 96/58 96 06/09/19 21:30 124 H 26 H 108/71 100 06/09/19 21:15 131 H 26 H 114/65 93 L 06/09/19 21:00 147 H 26 H 96/55 94 L 06/09/19 20:45 126 H 26 H 127/67 94 L 06/09/19 20:30 112 H 26 H 115/69 94 L 06/09/19 20:15 129 H 26 H 89/56 93 L 06/09/19 20:00 97.7 F 110 H 26 H 106/61 93 L 06/09/19 19:45 128 H 26 H 86/61 93 L 06/09/19 19:30 125 H 26 H 89/49 96 06/09/19 19:15 108 H 26 H 93/54 96 04/15/20 19:00 130 H 26 H 71/60 95 06/09/19 18:45 118 H 26 H 90/59 95 06/09/19 18:30 118 H 26 H 87/73 94 L 06/09/19 18:15 123 H 26 H 99/61 93 L 06/09/19 18:00 135 H 26 H 98/55 94 L 06/09/19 17:45 110 H 26 H 88/49 94 L 06/09/19 17:30 118 H 26 H 125/70 94 L 06/09/19 17:15 112 H 26 H 102/52 95 06/09/19 17:00 110 H 26 H 96/49 94 L 06/09/19 16:45 116 H 26 H 103/69 06/09/19 16:30 113 H 26 H 98/63 06/09/19 16:15 112 H 26 H 109/60 06/09/19 16:00 98 F 114 H 26 H 106/58 94 L 06/09/19 15:45 103 H 30 H 106/52 93 L 06/09/19 15:30 106 H 29 H 108/46 92 L 06/09/19 15:15 111 H 29 H 106/50 93 L 06/09/19 15:00 102 H 31 H 113/59 93 L 06/09/19 14:45 118 H 34 H 116/59 93 L 06/09/19 14:30 102 H 34 H 118/49 90 L 06/09/19 14:15 96 35 H 117/64 91 L 06/09/19 14:00 104 H 34 H 112/55 92 L 06/09/19 13:45 95 33 H 103/53 92 L 06/09/19 13:30 98 34 H 108/53 94 L 06/09/19 13:15 93 33 H 91/47 94 L 06/09/19 13:00 84 28 H 90/58 93 L 06/09/19 12:45 86 27 H 66/42 95 06/09/19 12:30 89 29 H 66/41 93 L 06/09/19 12:00 100 30 H 108/73 90 L 06/09/19 11:30 105 H 12 91/56 83 L Intake and Output 06/09/19 06/10/19 06/10/19 22:59 06:59 14:59 Intake Total 2732.677 1142.154 504.379 Output Total 298 17 225 Balance 2434.677 1125.154 279.379 Intake: IV 368 368 72 Normal Saline Pressure 48 48 12 Bag Sodium Chloride 0.9% 1, 320 320 60 000 ml @ 20 mls/hr IV . Q24H [facility] Rx#:[id number] Intake, IV Titration 2364.677 774.154 432.379 Amount Cisatracurium 200 mg In 151.859 Sodium Chloride 0.9% 180 ml @ 2 MCG/KG/MIN 8.872 mls/hr IV .[id number] [facility] Rx #:[id number] Dextrose 5% in Water 1, 75 000 ml @ 75 mls/hr IV . [id number] WEND[facility] with Sodium Bicarb (1 Meq/ml) 150 ml Rx#:[id number] Norepinephrine 8 mg In 264.677 506.581 104.485 Sodium Chloride 0.9% 250 ml @ 0.05 MCG/KG/MIN 7. 153 mls/hr IV .Q24H [facility] Rx#:[id number] Propofol 1,000 mg In 100 267.573 101.035 Empty Bag 1 bag @ Titrate IV .Q0M [facility] Rx#: [id number] Sodium Chloride 0.9% 1, 2000 000 ml @ 999 mls/hr IV . Q1H1M [facility] Rx#:[id number] Output: Gastric Drainage 225 Urine 298 17 0 Other: Voiding Method Indwelling Catheter Indwelling Catheter Indwelling Catheter Weight 71 kg 71 kg ABP, PAP, CO, CI - Last 8 Hours Arterial Blood Pressure 98/50 Arterial Blood Pressure 82/49 Arterial Blood Pressure 92/50 Arterial Blood Pressure 147/69 Arterial Blood Pressure 119/58 Arterial Blood Pressure 114/58 Arterial Blood Pressure 131/62 Arterial Blood Pressure 109/47 Arterial Blood Pressure 132/65 Arterial Blood Pressure 129/65 Arterial Blood Pressure 83/42 Arterial Blood Pressure 122/56 Arterial Blood Pressure 141/64 Arterial Blood Pressure 128/62 Arterial Blood Pressure 123/64 Arterial Blood Pressure 102/56 Arterial Blood Pressure 97/58 Arterial Blood Pressure 91/59 Arterial Blood Pressure 91/53 Arterial Blood Pressure 91/56 Arterial Blood Pressure 89/59 Arterial Blood Pressure 89/58 Arterial Blood Pressure 100/59 Arterial Blood Pressure 94/59 Arterial Blood Pressure 98/57 Arterial Blood Pressure 85/53 Results - Lab Results Most recent lab results ABG pH 7.04 (7.35-7.45) L* 06/10/19 05:12 ABG pCO2 56 mmHg (35-45) H 06/10/19 05:12 ABG pO2 86 mmHg (83-108) 06/10/19 05:12 ABG HCO3 15 mmol/L (21-25) L 06/10/19 05:12 ABG O2 Saturation 93.3 % (94-97) L 06/10/19 05:12 Calcium 8.6 mg/dL (8.4-10.2) 06/10/19 03:51 Phosphorus 9.2 mg/dL (2.5-4.5) H* 06/10/19 03:50 Magnesium 1.9 mg/dL (1.6-2.3) 06/10/19 03:50 06/10/19 03:51 06/10/19 03:51 Assessment and Plan Plan: assessment: 1. Acute kidney injury secondary to ATN secondary to septic shock. Creatinine 1.15 today. 2. Metabolic acidosis secondary to acute kidney injury. 3. Mild hyperkalemia secondary to acute kidney injury and metabolic acidosis. 4. Acute hypoxic and hypercapnic respiratory failure. Currently intubated. 5. Septic shock secondary to COVID-19 pneumonia. 6. Hyperphosphatemia secondary to acute kidney injury. Plan: Lasix 80 mg IV once today. Maintain bicarb drip at 75 mL an hour. Wean FiO2 and vasopressors. Avoid nephrotoxins. Lisinopril discontinued June 08. Tube feeds to be started today. Add PhosLo 1 tab 3 times daily. Follow-up cultures. Monitor vancomycin level closely. Continue to assess on daily basis for need for renal replacement therapy. Thank you for the consultation. I will continue to follow the patient with you during her hospital stay.
[2019-06-10 11:50] LABS: Ferritin 7243.7 ng/mL (10.0-291.0)
[2019-06-10 12:13] LABS: Glucose,Whole Blood 153 mg/dL (75-99)
[2019-06-10] MEDS: SODIUM CHLORIDE 0.9% 1,000 ML IV SCH (12:25)
[2019-06-10] MEDS: CALCIUM ACETATE 667 MG TAB PO SCH ×2 (12:25→17:33)
[2019-06-10] MEDS: PARoxetine 10 MG TAB PO SCH (12:26)
[2019-06-10] MEDS: DILTIAZEM 125 MG in SODIUM CHLORIDE 0.9% 100 ML IV SCH (14:33)
--- NOTE | 2019-06-10 15:29 | PN ---
PROGRESS NOTE DATE OF SERVICE: 06/10/2019 REASON FOR FOLLOWUP: Acute COVID-19 pneumonia. INTERVAL HISTORY: The patient is currently intubated on the vent. The patient's blood pressure has been borderline and has received multiple fluid boluses and pressure support. Patient's FiO2 is currently down to 55% , no diarrhea reported. PHYSICAL EXAMINATION: Blood pressure 102/58 with a pulse of 140, temperature 97.2. She is 96% on 55% FiO2. General description is an elderly female, lying in bed in no distress. RESPIRATORY SYSTEM: Unlabored breathing, decreased breath sounds at the base, no wheeze. HEART: S1, S2. Regular rate and rhythm. ABDOMEN: Soft, no tenderness. LABS: Hemoglobin 11.5, white count of 98,000, platelet count is 248. BUN of 26, creatinine 1.15. DIAGNOSTIC IMPRESSION AND PLAN: Patient with acute respiratory failure which is multifactorial in this patient who did have a component of pneumonia. Sputum is now showing Staph aureus. Vancomycin will be added, pharmacy to dose. Unfortunately, Zyvox could not be added because of the patient's Paxil and with drug interaction of the same. Overall prognosis remains to be guarded and will monitor clinical course closely. MMODL / IJN: [id number] / MTDD
--- NOTE | 2019-06-10 16:21 | P.PN ---
Subjective Progress Note Date: 06/10/19 Principal diagnosis: Covid pneumonia This is a 78-year-old female with history of hypertension was admitted via the ED for epigastric discomfort and nausea and vomiting. Patient was noted to have an elevated troponin of 0.418 with T-wave inversions on EKG. Patient was started on aspirin and heparin drip and was admitted for non-ST elevation NC. On May 26 patient had a initially thought secondary to urinary tract infection versus "19 infection. Patient troponin trended positive which was thought to be related to demand ischemia from sepsis. Patient influenza A and B were negative urine culture showed E. coli sensitive to Rocephin. Patient tested positive for COVID she was initiated on hydrocortisone, azithromycin, Rocephin, zinc and vitamin C. She was seen by infectious disease on her Rocephin and azithromycin were discontinued. Echocardiogram showed EF of 50-5060%. Patient respiratory status declined patient was initially a DNR/DNI patient had a discussion physician she changed to a full code patient was moved to the intensive care unit for elective intubation. Patient continued to have diarrhea C. diff was negative she was extubated on June 03 course was also complicated by atrial fibrillation which patient was started on Lovenox by cardiology. She was treated for urinary tract infection with Rocephin 3 doses patient then continued to have increasing oxygen requirements she initially wanted to be DO NOT RESUSCITATE but discussion did her family she states she'll be full code she was transferred back to the ICU on the and subsequently intubated. Objective - Vital Signs Vital signs: Vital Signs Temp 97.2 F L 06/10/19 13:00 Pulse 142 H 06/10/19 13:45 Resp 30 H 06/10/19 13:45 BP 103/59 06/10/19 08:15 Pulse Ox 96 06/10/19 13:45 Intake & Output 06/09/19 06/10/19 06/10/19 18:59 06:59 18:59 Intake Total 2344.413 2746.159 0918.969 Output Total 470 45 225 Balance 2335.727 7885.831 2487.969 Weight 71 kg 71 kg Intake: IV 184 552 176 Normal Saline Pressure 24 72 36 Bag Sodium Chloride 0.9% 1, 160 480 140 000 ml @ 20 mls/hr IV . Q24H [facility] Rx#:[id number] Intake, IV Titration 2160.413 1959.145 8145.969 Amount Cisatracurium 200 mg In 151.859 Sodium Chloride 0.9% 180 ml @ 2 MCG/KG/MIN 8.872 mls/hr IV .[id number] [facility] Rx #:[id number] Dextrose 5% in Water 1, 525 000 ml @ 75 mls/hr IV . [id number] [facility]ED[facility] with Sodium Bicarb (1 Meq/ml) 150 ml Rx#:[id number] Norepinephrine 8 mg In 2.742 771.258 185.557 Sodium Chloride 0.9% 250 ml @ 0.05 MCG/KG/MIN 7. 153 mls/hr IV .Q24H [facility] Rx#:[id number] Propofol 1,000 mg In 157.671 267.573 201.553 Empty Bag 1 bag @ Titrate IV .Q0M [facility] Rx#: [id number] Sodium Chloride 0.9% 1, 2000 000 ml @ 999 mls/hr IV . Q1H1M [facility] Rx#:[id number] Sodium Chloride 0.9% 1, 1000 000 ml @ 999 mls/hr IV . Q1H1M [facility] Rx#:[id number] Sodium Chloride 0.9% 1, 118 000 ml @ 999 mls/hr IV . Q1H1M [facility] Rx#:[id number] Vancomycin 1,250 mg In 250 Sodium Chloride 0.9% 250 ml @ 125 mls/hr IVPB Q24H [facility] Rx#:[id number] Tube Feeding 45 Other 60 Output: Gastric Drainage 225 Urine 270 45 0 Stool 200 Other: Voiding Method Indwelling Catheter Indwelling Catheter Indwelling Catheter ABP, PAP, CO, CI - Last Documented Arterial Blood Pressure 102/58 - EENT Ears: bilateral: normal - Respiratory Respiratory: bilateral: diminished - Cardiovascular Rhythm: other (tachycardic) - Gastrointestinal General gastrointestinal: Present: decreased bowel sounds - Psychiatric Psychiatric Comment(s): Limited insight - Labs CBC & Chem 7: 06/10/19 03:51 06/10/19 03:51 Labs: Abnormal Lab Results - Last 24 Hours (Table) 06/09/19 06/09/19 06/09/19 Range/Units 18:00 18:02 23:30 WBC (3.8-10.6) k/uL MCV (80.0-100.0) fL MCH (25.0-35.0) pg MCHC (31.0-37.0) g/dL RDW (11.5-15.5) % Plt Count (150-450) k/uL Neutrophils # (Manual) (1.3-7.7) k/uL Lymphocytes # (Manual) (1.0-4.8) k/uL Monocytes # (Manual) (0-1.0) k/uL Eosinophils # (Manual) (0-0.7) k/uL Metamyelocytes # (Man) (0) k/uL Myelocytes # (Manual) (0) k/uL D-Dimer (<0.60) mg/L FEU ABG pH (7.35-7.45) ABG pCO2 (35-45) mmHg ABG HCO3 (21-25) mmol/L ABG Total CO2 (19-24) mmol/L ABG O2 Saturation (94-97) % Sodium (137-145) mmol/L Potassium (3.5-5.1) mmol/L Carbon Dioxide (22-30) mmol/L BUN (7-17) mg/dL Creatinine (0.52-1.04) mg/dL Glucose (74-99) mg/dL POC Glucose (mg/dL) 157 H 159 H (75-99) mg/dL Phosphorus (2.5-4.5) mg/dL Ferritin (10.0-291.0) ng/mL AST (14-36) U/L ALT (4-34) U/L Alkaline Phosphatase (38-126) U/L Lactate Dehydrogenase (313-618) U/L CK-MB (CK-2) (0.0-2.4) ng/mL C-Reactive Protein (<10.0) mg/L Total Protein (6.3-8.2) g/dL Albumin (3.5-5.0) g/dL Urine Protein 1+ H (Negative) Ur Leukocyte Esterase Small H (Negative) Urine WBC 27 H (0-5) /hpf Urine Bacteria Rare H (None) /hpf Urine Mucus Many H (None) /hpf Urine Yeast (Budding) Few H (None) /hpf 06/10/19 06/10/19 06/10/19 Range/Units 03:50 03:50 03:51 WBC (3.8-10.6) k/uL MCV (80.0-100.0) fL MCH (25.0-35.0) pg MCHC (31.0-37.0) g/dL RDW (11.5-15.5) % Plt Count (150-450) k/uL Neutrophils # (Manual) (1.3-7.7) k/uL Lymphocytes # (Manual) (1.0-4.8) k/uL Monocytes # (Manual) (0-1.0) k/uL Eosinophils # (Manual) (0-0.7) k/uL Metamyelocytes # (Man) (0) k/uL Myelocytes # (Manual) (0) k/uL D-Dimer (<0.60) mg/L FEU ABG pH (7.35-7.45) ABG pCO2 (35-45) mmHg ABG HCO3 (21-25) mmol/L ABG Total CO2 (19-24) mmol/L ABG O2 Saturation (94-97) % Sodium 136 L (137-145) mmol/L Potassium 5.4 H (3.5-5.1) mmol/L Carbon Dioxide 16 L (22-30) mmol/L BUN 26 H (7-17) mg/dL Creatinine 1.15 H (0.52-1.04) mg/dL Glucose 153 H (74-99) mg/dL POC Glucose (mg/dL) (75-99) mg/dL Phosphorus 9.2 H* (2.5-4.5) mg/dL Ferritin 7243.7 H (10.0-291.0) ng/mL AST 93 H (14-36) U/L ALT 120 H (4-34) U/L Alkaline Phosphatase 253 H (38-126) U/L Lactate Dehydrogenase 2650 H (313-618) U/L CK-MB (CK-2) 3.7 H (0.0-2.4) ng/mL C-Reactive Protein 242.9 H (<10.0) mg/L Total Protein 5.5 L (6.3-8.2) g/dL Albumin 2.8 L (3.5-5.0) g/dL Urine Protein (Negative) Ur Leukocyte Esterase (Negative) Urine WBC (0-5) /hpf Urine Bacteria (None) /hpf Urine Mucus (None) /hpf Urine Yeast (Budding) (None) /hpf 06/10/19 06/10/19 06/10/19 Range/Units 03:51 03:51 05:12 WBC 90.6 H* (3.8-10.6) k/uL MCV 79.5 L (80.0-100.0) fL MCH 22.9 L (25.0-35.0) pg MCHC 28.8 L (31.0-37.0) g/dL RDW 20.1 H (11.5-15.5) % Plt Count 1248 H* D (150-450) k/uL Neutrophils # (Manual) 76.10 H (1.3-7.7) k/uL Lymphocytes # (Manual) 6.34 H (1.0-4.8) k/uL Monocytes # (Manual) 2.72 H (0-1.0) k/uL Eosinophils # (Manual) 2.72 H (0-0.7) k/uL Metamyelocytes # (Man) 1.81 H (0) k/uL Myelocytes # (Manual) 0.91 H (0) k/uL D-Dimer 0.83 H (<0.60) mg/L FEU ABG pH 7.04 L* (7.35-7.45) ABG pCO2 56 H (35-45) mmHg ABG HCO3 15 L (21-25) mmol/L ABG Total CO2 17 L (19-24) mmol/L ABG O2 Saturation 93.3 L (94-97) % Sodium (137-145) mmol/L Potassium (3.5-5.1) mmol/L Carbon Dioxide (22-30) mmol/L BUN (7-17) mg/dL Creatinine (0.52-1.04) mg/dL Glucose (74-99) mg/dL POC Glucose (mg/dL) (75-99) mg/dL Phosphorus (2.5-4.5) mg/dL Ferritin (10.0-291.0) ng/mL AST (14-36) U/L ALT (4-34) U/L Alkaline Phosphatase (38-126) U/L Lactate Dehydrogenase (313-618) U/L CK-MB (CK-2) (0.0-2.4) ng/mL C-Reactive Protein (<10.0) mg/L Total Protein (6.3-8.2) g/dL Albumin (3.5-5.0) g/dL Urine Protein (Negative) Ur Leukocyte Esterase (Negative) Urine WBC (0-5) /hpf Urine Bacteria (None) /hpf Urine Mucus (None) /hpf Urine Yeast (Budding) (None) /hpf 06/10/19 06/10/19 Range/Units 05:30 12:12 WBC (3.8-10.6) k/uL MCV (80.0-100.0) fL MCH (25.0-35.0) pg MCHC (31.0-37.0) g/dL RDW (11.5-15.5) % Plt Count (150-450) k/uL Neutrophils # (Manual) (1.3-7.7) k/uL Lymphocytes # (Manual) (1.0-4.8) k/uL Monocytes # (Manual) (0-1.0) k/uL Eosinophils # (Manual) (0-0.7) k/uL Metamyelocytes # (Man) (0) k/uL Myelocytes # (Manual) (0) k/uL D-Dimer (<0.60) mg/L FEU ABG pH (7.35-7.45) ABG pCO2 (35-45) mmHg ABG HCO3 (21-25) mmol/L ABG Total CO2 (19-24) mmol/L ABG O2 Saturation (94-97) % Sodium (137-145) mmol/L Potassium (3.5-5.1) mmol/L Carbon Dioxide (22-30) mmol/L BUN (7-17) mg/dL Creatinine (0.52-1.04) mg/dL Glucose (74-99) mg/dL POC Glucose (mg/dL) 139 H 153 H (75-99) mg/dL Phosphorus (2.5-4.5) mg/dL Ferritin (10.0-291.0) ng/mL AST (14-36) U/L ALT (4-34) U/L Alkaline Phosphatase (38-126) U/L Lactate Dehydrogenase (313-618) U/L CK-MB (CK-2) (0.0-2.4) ng/mL C-Reactive Protein (<10.0) mg/L Total Protein (6.3-8.2) g/dL Albumin (3.5-5.0) g/dL Urine Protein (Negative) Ur Leukocyte Esterase (Negative) Urine WBC (0-5) /hpf Urine Bacteria (None) /hpf Urine Mucus (None) /hpf Urine Yeast (Budding) (None) /hpf Microbiology - Last 24 Hours (Table) 06/08/19 Unknown Gram Stain - Preliminary Sputum Sputum Culture - Preliminary Presumptive Staph aureus Bernadette albicans 06/09/19 18:00 Urine Culture - Preliminary Urine,Voided Assessment and Plan (1) Pneumonia due to COVID-19 virus Narrative/Plan: Patient with pneumonia initially intubated and extubated now reintubated secondary positive for staph vancomycin has been added to her regimen continue management patient on Levophed Current Visit: Yes Status: Acute Code(s): U07.1 - COVID-19; J12.89 - OTHER VIRAL PNEUMONIA SNOMED Code(s): 942940915 (2) Renal failure, acute Narrative/Plan: Acute kidney injury secondary to intrinsic kidney disease ATN secondary to shock metabolic acidosis patient a bicarb drip currently anuric making only 5 ml an hour appreciated nephrology input Current Visit: Yes Status: Acute Code(s): N17.9 - ACUTE KIDNEY FAILURE, UNSPECIFIED SNOMED Code(s): 90108901 (3) NSTEMI (non-ST elevated myocardial infarction) Narrative/Plan: Secondary to demand ischemia Current Visit: Yes Status: Acute Code(s): I21.4 - NON-ST ELEVATION (NSTEMI) MYOCARDIAL INFARCTION SNOMED Code(s): 61698680 Plan: Prognosis grave
[2019-06-10 17:21] LABS: Glucose,Whole Blood 177 mg/dL (75-99)
[2019-06-10 17:45] LABS: Albumin 2.2 g/dL (3.5-5.0); Calcium 7.5 mg/dL (8.4-10.2); Potassium 4.4 mmol/L (3.5-5.1); Total Bilirubin 0.5 mg/dL (0.2-1.3); Total Protein 4.7 g/dL (6.3-8.2)
[2019-06-10] MEDS: CISATRACURIUM 200 MG in SODIUM CHLORIDE 0.9% 100 ML IV SCH (19:47)
[2019-06-10] MEDS ORDERED: HYDROXYCHLOROQUINE SULFATE 200 MG TAB PO SCH (21:00)
[2019-06-10 23:28] LABS: Glucose,Whole Blood 145 mg/dL (75-99)
[2019-06-10 23:51] LABS: Glucose,Whole Blood 176 mg/dL (75-99)
[2019-06-11] MEDS: ARTIFICIAL TEARS-HYPROMELLOSE DROPS 15 ML BTL BOTH EYES SCH ×6 (03:47→21:29)
[2019-06-11 04:37] LABS: Anisocytosis Moderate; HCT 34.7 % (34.0-46.0); HGB 10.6 gm/dL (11.4-16.0); Hypochromasia Marked; MCH 23.3 pg (25.0-35.0); MCHC 30.5 g/dL (31.0-37.0); MCV 76.5 fL (80.0-100.0); Mean Platelet Volume 7.9; Microcytosis Moderate; Platelet Count 574 k/uL (150-450); Poikilocytosis Moderate; RBC 4.54 m/uL (3.80-5.40); RDW 20.4 % (11.5-15.5); WBC 46.7 k/uL (3.8-10.6)
[2019-06-11 05:10] LABS: Albumin 2.3 g/dL (3.5-5.0); Calcium 7.4 mg/dL (8.4-10.2); Magnesium 1.7 mg/dL (1.6-2.3); Phosphorus 7.5 mg/dL (2.5-4.5); Potassium 4.3 mmol/L (3.5-5.1); Total Bilirubin 0.4 mg/dL (0.2-1.3); Total Protein 4.7 g/dL (6.3-8.2)
[2019-06-11 05:23] LABS: ABG Base Excess -5.7 mmol/L; ABG HCO3 22 mmol/L (21-25); ABG Oxygen Saturation 97.7 % (94-97); ABG PCO2 50 mmHg (35-45); ABG PH 7.24 (7.35-7.45); ABG PO2 108 mmHg (83-108); ABG TCO2 23 mmol/L (19-24); Allen Test Performed? Yes
[2019-06-11 05:26] LABS: C Reactive Protein 148.9 mg/L (<10.0)
[2019-06-11] MEDS ORDERED: Magnesium Replacement Protocol 1 EACH MISC MISCELLANE PRN (05:27)
[2019-06-11] MEDS: MAGNESIUM SULFATE-D5W PMX 1 GM in DEXTROSE/WATER 1 100ML.BAG IVPB SCH ×2 (05:42→06:47)
[2019-06-11 05:51] LABS: Band Neutrophils % 8 %; Lymphocytes # (M) 0.93 k/uL (1.0-4.8); Metamyelocytes # (M) 0.47 k/uL (0); Metamyelocytes % 1 %; Neutrophils % (M) 89 %; Nucleated Red Blood Cells 0 /100 WBC (0-0); Total Cells Counted 200
[2019-06-11 05:51] LABS: Glucose,Whole Blood 196 mg/dL (75-99)
[2019-06-11 05:52] LABS: Large Platelets Present; Polychromasia Present; Toxic Vacuolation Present
[2019-06-11 05:54] LABS: Crenated RBC Present; RBC Fragments Present
[2019-06-11] MEDS: INSULIN ASPART (NovoLOG) 100 UNIT/ML VIAL SQ SCH ×3 (05:55→17:50)
[2019-06-11] MEDS: CALCIUM ACETATE 667 MG TAB PO SCH ×3 (06:27→17:52)
[2019-06-11] MEDS: NOREPINEPHRINE 8 MG in SODIUM CHLORIDE 0.9% 250 ML IV SCH ×2 (06:31→23:19)
[2019-06-11] MEDS: ALBUTEROL HFA INHALER INHALATION PRN ×2 (07:20→11:10)
--- NOTE | 2019-06-11 07:29 | XR ---
EXAMINATION TYPE: XR chest 1V DATE OF EXAM: 06/11/2019 COMPARISON: Prior chest x-ray 06/10/2019 HISTORY: Intubated TECHNIQUE: Single frontal view of the chest is obtained. FINDINGS: Endotracheal tube, NG tube, left-sided central venous catheter are all again noted and are stable. There is prominence of interstitium as on prior exam, basilar airspace disease is again note d. No evident pneumothorax. Heart is stable. Aorta is dense. IMPRESSION: Findings are not significantly changed. Consider pulmonary edema, ARDS, congestive heart failure and pneumonia.
[2019-06-11] MEDS ORDERED: VANCOMYCIN 1,250 MG in SODIUM CHLORIDE 0.9% 250 ML IVPB SCH (08:00)
[2019-06-11] MEDS ORDERED: VANCOMYCIN IV PER PHARMACY 1 EACH MISC MISCELLANE PRN (08:00)
[2019-06-11] MEDS: ASPIRIN 81 MG PO SCH (09:29)
[2019-06-11] MEDS: PANTOPRAZOLE 40 MG/10 ML VIAL IVP SCH (09:29)
[2019-06-11] MEDS: PARoxetine 10 MG TAB PO SCH (09:29)
[2019-06-11] MEDS: ZINC SULFATE 220 MG CAP PO SCH (09:29)
[2019-06-11] MEDS: ASCORBIC ACID 500 MG TAB PO SCH ×2 (09:29→21:28)
[2019-06-11] MEDS: CEFEPIME 2 GM in SODIUM CHLORIDE 0.9% 100 ML IVPB SCH (09:30)
[2019-06-11] MEDS: ENOXAPARIN 60 MG/0.6 ML SYRINGE SQ SCH (09:30)
[2019-06-11] MEDS: CHLORHEXIDINE GLUCONATE 15 ML CUP MUCOUS MEM SCH ×2 (09:30→21:28)
[2019-06-11] MEDS: methylPREDNISolone SOD SUCCI 40 MG/ML 1 ML VIAL IV SCH ×2 (09:31→21:28)
[2019-06-11] MEDS: HYDROXYCHLOROQUINE ORAL SUSP 200 MG/8 ML ORAL.SYRG PO SCH ×2 (09:32→21:28)
[2019-06-11] MEDS: DILTIAZEM 125 MG in SODIUM CHLORIDE 0.9% 100 ML IV SCH (10:03)
[2019-06-11] MEDS ORDERED: FUROSEMIDE 10 MG/ML 10 ML VIAL IV STA (10:24)
[2019-06-11] MEDS ORDERED: SODIUM CHLORIDE 0.9% 1,000 ML IV SCH (10:24)
--- NOTE | 2019-06-11 10:55 | P.PN ---
Subjective Patient is seen in follow-up for acute kidney injury. Creatinine 1.5 today. She is maintained on 14 mics of Levophed. Acidosis has improved. She is also on Cardizem drip for A. fib with RVR. Patient is anuric. She is receiving tube feeding. Currently on 40% FiO2. Vital signs are stable. Currently on Levophed. General: The patient appeared well nourished and normally developed. HEENT: Head exam is unremarkable. Neck is without jugular venous distension. Intubated. LUNGS: Lungs are clear to auscultation and percussion. Breath sounds decreased. HEART: Irregular rate and rhythm. ABDOMEN: Soft. Nondistended. EXTREMITITES: 1+ edema. Objective - Vital Signs Vital signs: Vital Signs Temp 97.3 F L 06/11/19 08:00 Pulse 88 06/11/19 08:15 Resp 30 H 06/11/19 08:15 BP 103/59 06/10/19 08:15 Pulse Ox 100 06/11/19 08:15 Intake & Output 06/10/19 06/11/19 06/11/19 18:59 06:59 18:59 Intake Total 3358.753 1588.556 324.282 Output Total 425 6 0 Balance 2933.753 1582.556 324.282 Weight 71 kg 78.6 kg 78.6 kg Intake: IV 280 538 26 Magnesium Sulfate-D5w Pmx 200 1 gm In Dextrose/Water 1 100ml.bag @ 100 mls/hr IVPB Q1H [facility] Rx#: [id number] Normal Saline Pressure 60 78 6 Bag Sodium Chloride 0.9% 1, 220 260 20 000 ml @ 20 mls/hr IV . Q24H [facility] Rx#:[id number] Intake, IV Titration 2883.753 607.556 242.282 Amount Cisatracurium 200 mg In 151.859 Sodium Chloride 0.9% 180 ml @ 2 MCG/KG/MIN 8.872 mls/hr IV .[id number] [facility] Rx #:[id number] Dextrose 5% in Water 1, 825 75 000 ml @ 75 mls/hr IV . [id number] [facility] with Sodium Bicarb (1 Meq/ml) 150 ml Rx#:[id number] Diltiazem 125 mg In 97.5 Sodium Chloride 0.9% 100 ml @ Per Protocol IV .Q0M [facility] Rx#:[id number] Norepinephrine 8 mg In 236.823 432.038 44.232 Sodium Chloride 0.9% 250 ml @ 0.05 MCG/KG/MIN 7. 153 mls/hr IV .Q24H [facility] Rx#:[id number] Propofol 1,000 mg In 302.071 100.518 100.55 Empty Bag 1 bag @ Titrate IV .Q0M [facility] Rx#: [id number] Sodium Chloride 0.9% 1, 1000 000 ml @ 999 mls/hr IV . Q1H1M [facility] Rx#:[id number] Sodium Chloride 0.9% 1, 118 000 ml @ 999 mls/hr IV . Q1H1M [facility] Rx#:[id number] Vancomycin 1,250 mg In 250 Sodium Chloride 0.9% 250 ml @ 125 mls/hr IVPB Q24H [facility] Rx#:[id number] Tube Feeding 105 353 26 Other 90 90 30 Output: Gastric Drainage 225 Urine 0 6 0 Stool 200 Other: Voiding Method Indwelling Catheter Indwelling Catheter Indwelling Catheter ABP, PAP, CO, CI - Last Documented Arterial Blood Pressure 115/41 - Labs CBC & Chem 7: 06/11/19 04:20 06/11/19 04:20 Labs: Abnormal Lab Results - Last 24 Hours (Table) 06/10/19 06/10/19 06/10/19 Range/Units 03:51 12:12 17:19 WBC (3.8-10.6) k/uL Hgb (11.4-16.0) gm/dL MCV (80.0-100.0) fL MCH (25.0-35.0) pg MCHC (31.0-37.0) g/dL RDW (11.5-15.5) % Plt Count (150-450) k/uL Neutrophils # (Manual) (1.3-7.7) k/uL Lymphocytes # (Manual) (1.0-4.8) k/uL Metamyelocytes # (Man) (0) k/uL ABG pH (7.35-7.45) ABG pCO2 (35-45) mmHg ABG O2 Saturation (94-97) % Sodium (137-145) mmol/L Carbon Dioxide (22-30) mmol/L BUN (7-17) mg/dL Creatinine (0.52-1.04) mg/dL Glucose (74-99) mg/dL POC Glucose (mg/dL) 153 H 177 H (75-99) mg/dL Calcium (8.4-10.2) mg/dL Phosphorus (2.5-4.5) mg/dL Ferritin 7243.7 H (10.0-291.0) ng/mL AST (14-36) U/L ALT (4-34) U/L Alkaline Phosphatase (38-126) U/L Lactate Dehydrogenase (313-618) U/L CK-MB (CK-2) (0.0-2.4) ng/mL C-Reactive Protein (<10.0) mg/L Total Protein (6.3-8.2) g/dL Albumin (3.5-5.0) g/dL Triglycerides (<150) mg/dL 06/10/19 06/10/19 06/10/19 Range/Units 17:20 23:27 23:49 WBC (3.8-10.6) k/uL Hgb (11.4-16.0) gm/dL MCV (80.0-100.0) fL MCH (25.0-35.0) pg MCHC (31.0-37.0) g/dL RDW (11.5-15.5) % Plt Count (150-450) k/uL Neutrophils # (Manual) (1.3-7.7) k/uL Lymphocytes # (Manual) (1.0-4.8) k/uL Metamyelocytes # (Man) (0) k/uL ABG pH (7.35-7.45) ABG pCO2 (35-45) mmHg ABG O2 Saturation (94-97) % Sodium 136 L (137-145) mmol/L Carbon Dioxide 21 L (22-30) mmol/L BUN 32 H (7-17) mg/dL Creatinine 1.38 H (0.52-1.04) mg/dL Glucose 164 H (74-99) mg/dL POC Glucose (mg/dL) 145 H 176 H (75-99) mg/dL Calcium 7.5 L (8.4-10.2) mg/dL Phosphorus (2.5-4.5) mg/dL Ferritin (10.0-291.0) ng/mL AST 51 H (14-36) U/L ALT 106 H (4-34) U/L Alkaline Phosphatase 179 H (38-126) U/L Lactate Dehydrogenase (313-618) U/L CK-MB (CK-2) (0.0-2.4) ng/mL C-Reactive Protein (<10.0) mg/L Total Protein 4.7 L (6.3-8.2) g/dL Albumin 2.2 L (3.5-5.0) g/dL Triglycerides (<150) mg/dL 06/11/19 06/11/19 06/11/19 Range/Units 04:20 04:20 04:20 WBC 46.7 H (3.8-10.6) k/uL Hgb 10.6 L (11.4-16.0) gm/dL MCV 76.5 L (80.0-100.0) fL MCH 23.3 L (25.0-35.0) pg MCHC 30.5 L (31.0-37.0) g/dL RDW 20.4 H (11.5-15.5) % Plt Count 574 H (150-450) k/uL Neutrophils # (Manual) 45.20 H (1.3-7.7) k/uL Lymphocytes # (Manual) 0.93 L (1.0-4.8) k/uL Metamyelocytes # (Man) 0.47 H (0) k/uL ABG pH (7.35-7.45) ABG pCO2 (35-45) mmHg ABG O2 Saturation (94-97) % Sodium 135 L (137-145) mmol/L Carbon Dioxide (22-30) mmol/L BUN 37 H (7-17) mg/dL Creatinine 1.51 H (0.52-1.04) mg/dL Glucose 190 H (74-99) mg/dL POC Glucose (mg/dL) (75-99) mg/dL Calcium 7.4 L (8.4-10.2) mg/dL Phosphorus 7.5 H (2.5-4.5) mg/dL Ferritin (10.0-291.0) ng/mL AST 43 H (14-36) U/L ALT 104 H (4-34) U/L Alkaline Phosphatase 182 H (38-126) U/L Lactate Dehydrogenase 1577 H (313-618) U/L CK-MB (CK-2) 4.1 H (0.0-2.4) ng/mL C-Reactive Protein 148.9 H (<10.0) mg/L Total Protein 4.7 L (6.3-8.2) g/dL Albumin 2.3 L (3.5-5.0) g/dL Triglycerides 347 H (<150) mg/dL 06/11/19 06/11/19 Range/Units 05:20 05:50 WBC (3.8-10.6) k/uL Hgb (11.4-16.0) gm/dL MCV (80.0-100.0) fL MCH (25.0-35.0) pg MCHC (31.0-37.0) g/dL RDW (11.5-15.5) % Plt Count (150-450) k/uL Neutrophils # (Manual) (1.3-7.7) k/uL Lymphocytes # (Manual) (1.0-4.8) k/uL Metamyelocytes # (Man) (0) k/uL ABG pH 7.24 L (7.35-7.45) ABG pCO2 50 H (35-45) mmHg ABG O2 Saturation 97.7 H (94-97) % Sodium (137-145) mmol/L Carbon Dioxide (22-30) mmol/L BUN (7-17) mg/dL Creatinine (0.52-1.04) mg/dL Glucose (74-99) mg/dL POC Glucose (mg/dL) 196 H (75-99) mg/dL Calcium (8.4-10.2) mg/dL Phosphorus (2.5-4.5) mg/dL Ferritin (10.0-291.0) ng/mL AST (14-36) U/L ALT (4-34) U/L Alkaline Phosphatase (38-126) U/L Lactate Dehydrogenase (313-618) U/L CK-MB (CK-2) (0.0-2.4) ng/mL C-Reactive Protein (<10.0) mg/L Total Protein (6.3-8.2) g/dL Albumin (3.5-5.0) g/dL Triglycerides (<150) mg/dL Microbiology - Last 24 Hours (Table) 06/08/19 Unknown Gram Stain - Final Sputum Sputum Culture - Final Methicillin resist S. aureus Bernadette albicans 06/10/19 05:40 Blood Culture - Preliminary Blood No Growth after 24 hours Assessment and Plan Plan: assessment: 1. Acute kidney injury secondary to ATN secondary to septic shock. Creatinine 1.5 today. 2. Metabolic acidosis secondary to acute kidney injury. Improved. 3. Mild hyperkalemia secondary to acute kidney injury and metabolic acidosis. Improved. 4. Acute hypoxic and hypercapnic respiratory failure. Currently intubated. On 40% FiO2. 5. Septic shock secondary to COVID-19 pneumonia. Urine culture positive for E. coli. Sputum cultures positive for MRSA and Bernadette. 6. Hyperphosphatemia secondary to acute kidney injury maintained on PhosLo. 7. A. fib with RVR maintain on Cardizem drip. 8. Volume overload. Plan: Discontinue bicarbonate drip. Maintain tube feeding. Wean FiO2 and vasopressors. Avoid nephrotoxins. Lisinopril discontinued June 08. Follow-up cultures. Monitor vancomycin level closely. Lasix 80 mg IV once today. Patient is anuric and hypervolemic. Plan to start renal replacement therapy once consent obtained.
[2019-06-11 11:25] LABS: Glucose,Whole Blood 180 mg/dL (75-99)
--- NOTE | 2019-06-11 11:36 | P.PN ---
Subjective Progress Note Date: 06/11/19 On 06/09/2019 patient seen in follow-up on [facility] care unit, we were called to the bedside for concern of increasing toxemia, patient was placed on 15 L high flow nasal cannula and her pulse ox would drop into the 70s, she was then placed on 100% nonrebreather, and she remained quite hypoxic with a pulse oxygen is 73-84%. At first she was adamant about not going back on life-support, however after she spoke to her children and after we spoke to her shoulder on the phone, she changed her mind and she decided to be a full code and agree to transfer to the intensive care unit and intubation. We are told by one of her daughters that her 3 days ago and they have not told their mother about his passing. Patient was becoming quite dyspneic and more distressed, she was transferred to the intensive care unit and emergently intubated and placed on assist-control mode of ventilation with a rate of 20, tidal volume of 450, FiO2 100% and PEEP of 5. Repeat blood gases showed pO2 74, pCO2 58, and pH of 7.21, and based on those blood gases her rate was increased to 26, and PEEP was increased to 10 cm of water. She was sedated, she is currently on Diprivan infusion, she did become hypotensive after intubation with the systolic in the 70s, she will be given 2 L and IV fluid boluses. She has been afebrile in last 24 hours, this was chest x-ray showed worsening bilateral lung infiltrates. Her labs after intubation showed white blood cell count 21.5, hemoglobin of 11, platelet count of 481, sodium of 132, potassium is 3.8, chloride is 100, CO2 is 26, BUN of 16 creatinine 0.43, her inflammatory markers have increased, with LDH at 1589, CRP of 173. Patient was on antibiotics for E. coli urinary tract infection and she is on cefepime, she has completed her course of Plaquenil. Central line and art line has been placed by Dr. Hanson after intubation. Follow-up chest x-ray showed increasing bilateral lung infiltrates, and placement of endotracheal tube and nasogastric tube and left central venous catheter in appropriate position without evidence of pneumothorax Today on all 06/10/2019 patient seen in follow-up in the intensive care unit. She is sedated, intubated, on mechanical ventilator, current vent settings are assist-control mode of ventilation with a rate of 30, tidal volume of 350, FiO2 65% and PEEP of 10, pulse ox 96%, this morning his blood gases were reviewed showing pO2 of 86, pCO2 56, and pH of 7.04, and patient's rate had since been increased to 30 breaths per minute, and she was given 3 A of sodium bicarbonate. Patient is tachycardic on the monitor, A. fib with a rate of 103-120 BPM, sometimes the rate reaches up to 150 BPM, yesterday she was fluid resuscitated with 3 L of IV fluid boluses, her maintenance IV is 0.9 normal saline at 20, which will be switched to D5 and water with 3 A of bicarbonate at 75 ML per hour. We will set is at 21 mics per minute, Nimbex is at 2 mics per kilo per hour, Diprivan is at 70 mics per kilo per minute. Her CVP is about 12, patient has been extremely oliguric, today's labs have been reviewed doing well blood cell count critically high at 98.6, hemoglobin is 11.5, platelet count is 1248, neutrophils are 76.10, lymphocytes is 6.34, there is evidence of toxic granulation on the differential. 14% bandemia present, d-dimer is 0.83, sodium is 136, potassium is 5.4, chloride is 106, CO2 16, patient is in acute kidney injury, with B1 up to 26, creatinine is 1.15, AST is 93, ALT is 120, alkaline phosphatase 253, LDH has increased, 2 2650, CRP is 242, urinalysis is collected showing small leuks, and white blood cell count is 27, with a few yeast and rare bacteria. Urine culture, sputum culture and blood cultures have been sent and are pending at this time, patient has been on cefepime, we will add vancomycin today for empiric antibiotic coverage for possibility of hospital-acquired sep sis. Patient remains critically ill. [place] 6 level was sent yesterday, patient has been restarted on Plaquenil by ID service. On 06/11/2019 patient seen in follow-up in the intensive care unit, she is sedated, intubated on mechanical ventilator, current settings are assist control with a rate of 30, tidal volume 350, FiO2 is 50% and PEEP of 15, this morning blood gases showed pO2 of 108, pCO2 is 50, and pH of 7.20. IV normal saline at a rate of 20, Levophed is at 7.8 mics per minute, Diprivan is a 70 mics per kilo per minute, Cardizem at 5 mg per hour, Nimbex is at 2 mics per kilo per minute, and D5 W with 3 A of bicarb at a rate of 75 ML per hour. tube feedings of vital 1.2 at 26 mL, with a goal of 26 mL per hour, today's chest x-ray has been reviewed showing prominence of interstitium, with basilar airspace disease . On today's labs, white blood cell count has decreased down to 46.7, hemoglobin is 10.6, platelet count is 574, bandemia is 8%, sodium is 135, the rest of the aster ctrolytes were within normal limits, renal profile continues to worsen, B1 is 37 creatinine is 1.51, patient is a near, she has failed to respond to challenge dose of Lasix 80 mg. On yesterday's labs patient's ferritin jumped to 7243, today's level is pending, LDH is 1570, CRP is 148. Glycerin level is 347. Ultra data has been reviewed, and sputum culture was positive for MRSA, urine culture was positive for E. coli. Patient is on combination of cefepime and vancomycin. Objective - Vital Signs Vital signs: Vital Signs Temp 97.3 F L 06/11/19 08:00 Pulse 88 06/11/19 08:15 Resp 30 H 06/11/19 08:15 BP 103/59 06/10/19 08:15 Pulse Ox 100 06/11/19 08:15 Intake & Output 06/10/19 06/11/19 06/11/19 18:59 06:59 18:59 Intake Total 3358.753 1588.556 324.282 Output Total 425 6 0 Balance 2933.753 1582.556 324.282 Weight 71 kg 78.6 kg 78.6 kg Intake: IV 280 538 26 Magnesium Sulfate-D5w Pmx 200 1 gm In Dextrose/Water 1 100ml.bag @ 100 mls/hr IVPB Q1H [facility] Rx#: [id number] Normal Saline Pressure 60 78 6 Bag Sodium Chloride 0.9% 1, 220 260 20 000 ml @ 20 mls/hr IV . Q24H [facility] Rx#:[id number] Intake, IV Titration 2883.753 607.556 242.282 Amount Cisatracurium 200 mg In 151.859 Sodium Chloride 0.9% 180 ml @ 2 MCG/KG/MIN 8.872 mls/hr IV .[id number] [facility] Rx #:[id number] Dextrose 5% in Water 1, 825 75 000 ml @ 75 mls/hr IV . [id number] [facility] with Sodium Bicarb (1 Meq/ml) 150 ml Rx#:[id number] Diltiazem 125 mg In 97.5 Sodium Chloride 0.9% 100 ml @ Per Protocol IV .Q0M [facility] Rx#:[id number] Norepinephrine 8 mg In 236.823 432.038 44.232 Sodium Chloride 0.9% 250 ml @ 0.05 MCG/KG/MIN 7. 153 mls/hr IV .Q24H [facility] Rx#:[id number] Propofol 1,000 mg In 302.071 100.518 100.55 Empty Bag 1 bag @ Titrate IV .Q0M [facility] Rx#: [id number] Sodium Chloride 0.9% 1, 1000 000 ml @ 999 mls/hr IV . Q1H1M [facility] Rx#:[id number] Sodium Chloride 0.9% 1, 118 000 ml @ 999 mls/hr IV . Q1H1M [facility] Rx#:[id number] Vancomycin 1,250 mg In 250 Sodium Chloride 0.9% 250 ml @ 125 mls/hr IVPB Q24H [facility] Rx#:[id number] Tube Feeding 105 353 26 Other 90 90 30 Output: Gastric Drainage 225 Urine 0 6 0 Stool 200 Other: Voiding Method Indwelling Catheter Indwelling Catheter Indwelling Catheter ABP, PAP, CO, CI - Last Documented Arterial Blood Pressure 115/41 - Exam GENERAL EXAM: 78-year-old white female, intubated, sedated on mechanical ventilator. Patient is paralyzed, sedated, she is hypotensive, on 7.8 mics per minute of Levophed, and patient is anuric HEAD: Normocephalic/atraumatic. EYES: Normal reaction of pupils, equal size. Conjunctiva pink, sclera white. NOSE: Clear with pink turbinates. THROAT: No erythema or exudates. NECK: No masses, no JVD, no thyroid enlargement, no adenopathy. CHEST: No chest wall deformity. Symmetrical expansion. LUNGS: Equal air entry with no crackles, wheeze, rhonchi or dullness. CVS: Regular rate and rhythm, normal S1 and S2, no gallops, no murmurs, no rubs ABDOMEN: Soft, nontender. No hepatosplenomegaly, normal bowel sounds, no guarding or rigidity. EXTREMITIES: No clubbing, no edema, no cyanosis, 2+ pulses and upper and lower extremities. MUSCULOSKELETAL: Muscle strength and tone normal. SPINE: No scoliosis or deformity SKIN: No rashes CENTRAL NERVOUS SYSTEM: Intubated, sedated. No focal deficits, tone is normal in all 4 extremities. - Labs CBC & Chem 7: 06/11/19 04:06/11/19 04:20 Labs: Abnormal Lab Results - Last 24 Hours (Table) 06/10/19 06/10/19 06/10/19 Range/Units 03:51 12:12 17:19 WBC (3.8-10.6) k/uL Hgb (11.4-16.0) gm/dL MCV (80.0-100.0) fL MCH (25.0-35.0) pg MCHC (31.0-37.0) g/dL RDW (11.5-15.5) % Plt Count (150-450) k/uL Neutrophils # (Manual) (1.3-7.7) k/uL Lymphocytes # (Manual) (1.0-4.8) k/uL Metamyelocytes # (Man) (0) k/uL ABG pH (7.35-7.45) ABG pCO2 (35-45) mmHg ABG O2 Saturation (94-97) % Sodium (137-145) mmol/L Carbon Dioxide (22-30) mmol/L BUN (7-17) mg/dL Creatinine (0.52-1.04) mg/dL Glucose (74-99) mg/dL POC Glucose (mg/dL) 153 H 177 H (75-99) mg/dL Calcium (8.4-10.2) mg/dL Phosphorus (2.5-4.5) mg/dL Ferritin 7243.7 H (10.0-291.0) ng/mL AST (14-36) U/L ALT (4-34) U/L Alkaline Phosphatase (38-126) U/L Lactate Dehydrogenase (313-618) U/L CK-MB (CK-2) (0.0-2.4) ng/mL C-Reactive Protein (<10.0) mg/L Total Protein (6.3-8.2) g/dL Albumin (3.5-5.0) g/dL Triglycerides (<150) mg/dL 06/10/19 06/10/19 06/10/19 Range/Units 17:20 23:27 23:49 WBC (3.8-10.6) k/uL Hgb (11.4-16.0) gm/dL MCV (80.0-100.0) fL MCH (25.0-35.0) pg MCHC (31.0-37.0) g/dL RDW (11.5-15.5) % Plt Count (150-450) k/uL Neutrophils # (Manual) (1.3-7.7) k/uL Lymphocytes # (Manual) (1.0-4.8) k/uL Metamyelocytes # (Man) (0) k/uL ABG pH (7.35-7.45) ABG pCO2 (35-45) mmHg ABG O2 Saturation (94-97) % Sodium 136 L (137-145) mmol/L Carbon Dioxide 21 L (22-30) mmol/L BUN 32 H (7-17) mg/dL Creatinine 1.38 H (0.52-1.04) mg/dL Glucose 164 H (74-99) mg/dL POC Glucose (mg/dL) 145 H 176 H (75-99) mg/dL Calcium 7.5 L (8.4-10.2) mg/dL Phosphorus (2.5-4.5) mg/dL Ferritin (10.0-291.0) ng/mL AST 51 H (14-36) U/L ALT 106 H (4-34) U/L Alkaline Phosphatase 179 H (38-126) U/L Lactate Dehydrogenase (313-618) U/L CK-MB (CK-2) (0.0-2.4) ng/mL C-Reactive Protein (<10.0) mg/L Total Protein 4.7 L (6.3-8.2) g/dL Albumin 2.2 L (3.5-5.0) g/dL Triglycerides (<150) mg/dL 06/11/19 06/11/19 06/11/19 Range/Units 04:20 04:20 04:20 WBC 46.7 H (3.8-10.6) k/uL Hgb 10.6 L (11.4-16.0) gm/dL MCV 76.5 L (80.0-100.0) fL MCH 23.3 L (25.0-35.0) pg MCHC 30.5 L (31.0-37.0) g/dL RDW 20.4 H (11.5-15.5) % Plt Count 574 H (150-450) k/uL Neutrophils # (Manual) 45.20 H (1.3-7.7) k/uL Lymphocytes # (Manual) 0.93 L (1.0-4.8) k/uL Metamyelocytes # (Man) 0.47 H (0) k/uL ABG pH (7.35-7.45) ABG pCO2 (35-45) mmHg ABG O2 Saturation (94-97) % Sodium 135 L (137-145) mmol/L Carbon Dioxide (22-30) mmol/L BUN 37 H (7-17) mg/dL Creatinine 1.51 H (0.52-1.04) mg/dL Glucose 190 H (74-99) mg/dL POC Glucose (mg/dL) (75-99) mg/dL Calcium 7.4 L (8.4-10.2) mg/dL Phosphorus 7.5 H (2.5-4.5) mg/dL Ferritin (10.0-291.0) ng/mL AST 43 H (14-36) U/L ALT 104 H (4-34) U/L Alkaline Phosphatase 182 H (38-126) U/L Lactate Dehydrogenase 1577 H (313-618) U/L CK-MB (CK-2) 4.1 H (0.0-2.4) ng/mL C-Reactive Protein 148.9 H (<10.0) mg/L Total Protein 4.7 L (6.3-8.2) g/dL Albumin 2.3 L (3.5-5.0) g/dL Triglycerides 347 H (<150) mg/dL 06/11/19 06/11/19 06/11/19 Range/Units 05:20 05:50 11:24 WBC (3.8-10.6) k/uL Hgb (11.4-16.0) gm/dL MCV (80.0-100.0) fL MCH (25.0-35.0) pg MCHC (31.0-37.0) g/dL RDW (11.5-15.5) % Plt Count (150-450) k/uL Neutrophils # (Manual) (1.3-7.7) k/uL Lymphocytes # (Manual) (1.0-4.8) k/uL Metamyelocytes # (Man) (0) k/uL ABG pH 7.24 L (7.35-7.45) ABG pCO2 50 H (35-45) mmHg ABG O2 Saturation 97.7 H (94-97) % Sodium (137-145) mmol/L Carbon Dioxide (22-30) mmol/L BUN (7-17) mg/dL Creatinine (0.52-1.04) mg/dL Glucose (74-99) mg/dL POC Glucose (mg/dL) 196 H 180 H (75-99) mg/dL Calcium (8.4-10.2) mg/dL Phosphorus (2.5-4.5) mg/dL Ferritin (10.0-291.0) ng/mL AST (14-36) U/L ALT (4-34) U/L Alkaline Phosphatase (38-126) U/L Lactate Dehydrogenase (313-618) U/L CK-MB (CK-2) (0.0-2.4) ng/mL C-Reactive Protein (<10.0) mg/L Total Protein (6.3-8.2) g/dL Albumin (3.5-5.0) g/dL Triglycerides (<150) mg/dL Microbiology - Last 24 Hours (Table) 06/08/19 Unknown Gram Stain - Final Sputum Sputum Culture - Final Methicillin resist S. aureus Bernadette albicans 06/10/19 05:40 Blood Culture - Preliminary Blood No Growth after 24 hours Assessment and Plan Plan: Assessment: #1. Septic shock related to MRSA pneumonia. Current coverage includes cefepime, and vancomycin. Patient required reintubation and placement on mechanical ventilation on 06/09/2019. #2. Non-anion gap metabolic acidosis related to acute kidney injury secondary to sepsis #3. Acute hypoxemic and hypercapnic respiratory failure related to acute COVID 19 related pneumonia, today's chest x-ray on 05/31/2019 showed progressive worsening of the multifocal interstitial and alveolar opacities most pronounced in the right midlung. Patient required intubation and placement on mechanical ventilator on 05/31/2019, she was successfully weaned and extubated on 06/04/2019. However today on 06/09/2019 patient has developed a worsening hypoxemia, requiring transfer back to the intensive care unit and reintubation and placement on mechanical ventilator #4. Acute kidney injury, worsened on today's labs, and patient is anuric #5. A. fib with RVR related to sepsis, the rate is better controlled on Cardizem drip #6. Acute leukocytosis, bandemia, likely related to acute sepsis #7. Elevated LDH, ferritin related to COVID 19 infection #8. Elevated troponins #9. Acute urinary tract infection, related to E. coli #10. History of hypertension #11. Depression #12. Recent history of large soft tissue mass involving the posterior right hip status post biopsy, results are pending #13. Ex-smoker Plan: Continue with current antibiotic coverage, sputum culture was positive for MRSA, and coverage includes cefepime and vancomycin, ID service is following, patient has been restarted on Plaquenil, interleukin-6 level is still pending, today's chest x-ray has been reviewed showing interstitial prominence, bilateral infiltrates. Today's blood gases have been reviewed, we will drop down the FiO2 to 40%. We will send support has been decreased down to 7 mics per minute, pat ient was adequately fluid resuscitated yesterday, continue to wean the levo fed, nephrology is following, and discussing possibility of initiation of hemodialysis. Patient's daughter was updated about patient's condition, and her CODE STATUS was changed to DO NOT RESUSCITATE, will continue supportive care, however overall prognosis is poor. Continue GI and DVT prophylaxis, nutritional support, antibiotics. Repeat chest x-ray, daily labs. We'll follow I performed a history & physical examination of the patient and discussed their management with my nurse practitioner, Hue Michael. I reviewed the nurse practitioner's note and agree with the documented findings and plan of care. Lung sounds are positive for diminished breath sounds. The findings and the impression was discussed with the patient. I attest to the documentation by the nurse practitioner. Time with Patient: Greater than 30
[2019-06-11 12:21] LABS: Ferritin 5409.7 ng/mL (10.0-291.0)
[2019-06-11 14:06] LABS: Partial Thromboplastin Time 28.4 sec (22.0-30.0); Prothrombin Time 10.6 sec (9.0-12.0)
[2019-06-11] MEDS ORDERED: HEPARIN SODIUM 1,000 UN/ML (10ML VL) ONE (14:30)
--- NOTE | 2019-06-11 16:04 | P.PN ---
Subjective Progress Note Date: 06/11/19 Principal diagnosis: Covid -19 pneumonia Patient is a 78-year-old female with history of hypertension was initially admitted to the emergency room for elevated troponin of 0.418 with T-wave inversions. Patient was started on aspirin heparin drip and was admitted for non-ST elevation RI. Patient on the second was noted to have an infection urinary tract infection versus Covid -19. Patient elevated troponin was due to determined to be secondary to demand ischemia her influenza A and B were negative and urine culture showed E. coli sensitive to Rocephin. Patient was found to be positive for Covid19 she required intubation after she declined from Rister standpoint. Patient was extubated on June 03 was optimized and then transferred to general medical floor she then declined and was subsequently reintubated on June 09. Patient was initially admitted to DO NOT RESUSCITATE however she was declining family opted for patient to be a full code Objective - Vital Signs Vital signs: Vital Signs Temp 97.0 F L 06/11/19 12:00 Pulse 85 06/11/19 15:00 Resp 30 H 06/11/19 15:00 BP 103/59 06/10/19 08:15 Pulse Ox 94 L 06/11/19 15:00 Intake & Output 06/10/19 06/11/19 06/11/19 18:59 06:59 18:59 Intake Total 3358.753 2069.798 1289.701 Output Total 425 6 0 Balance 2933.753 1398.352 1569.701 Weight 71 kg 78.6 kg 78.6 kg Intake: IV 280 538 188 Magnesium Sulfate-D5w Pmx 200 1 gm In Dextrose/Water 1 100ml.bag @ 100 mls/hr IVPB Q1H [facility] Rx#: [id number] Normal Saline Pressure 60 78 48 Bag Sodium Chloride 0.9% 1, 220 260 140 000 ml @ 20 mls/hr IV . Q24H [facility] Rx#:[id number] Intake, IV Titration 2883.753 597.827 9198.701 Amount Cefepime 2 gm In Sodium 100 Chloride 0.9% 100 ml @ 200 mls/hr IVPB Q12HR [facility] Rx#:[id number] Cisatracurium 200 mg In 151.859 Sodium Chloride 0.9% 180 ml @ 2 MCG/KG/MIN 8.872 mls/hr IV .[id number] [facility] Rx #:[id number] Dextrose 5% in Water 1, 825 75 75 000 ml @ 75 mls/hr IV . [id number] [facility] with Sodium Bicarb (1 Meq/ml) 150 ml Rx#:[id number] Diltiazem 125 mg In 97.5 Sodium Chloride 0.9% 100 ml @ Per Protocol IV .Q0M [facility] Rx#:[id number] Norepinephrine 8 mg In 236.823 432.038 130.551 Sodium Chloride 0.9% 250 ml @ 0.05 MCG/KG/MIN 7. 153 mls/hr IV .Q24H [facility] Rx#:[id number] Propofol 1,000 mg In 302.071 100.518 201.65 Empty Bag 1 bag @ Titrate IV .Q0M [facility] Rx#: [id number] Sodium Chloride 0.9% 1, 200 000 ml @ 50 mls/hr IV . Q20H [facility] Rx#:[id number] Sodium Chloride 0.9% 1, 1000 000 ml @ 999 mls/hr IV . Q1H1M [facility] Rx#:[id number] Sodium Chloride 0.9% 1, 118 000 ml @ 999 mls/hr IV . Q1H1M [facility] Rx#:[id number] Vancomycin 1,250 mg In 250 250 Sodium Chloride 0.9% 250 ml @ 125 mls/hr IVPB Q24H [facility] Rx#:[id number] Tube Feeding 105 353 208 Other 90 90 30 Output: Gastric Drainage 225 Urine 0 6 0 Stool 200 Other: Voiding Method Indwelling Catheter Indwelling Catheter Indwelling Catheter ABP, PAP, CO, CI - Last Documented Arterial Blood Pressure 132/46 - Constitutional Constitutional Comment(s): Ill appearing - Respiratory Respiratory: bilateral: diminished - Gastrointestinal General gastrointestinal: Present: decreased bowel sounds - Neurologic Neurologic Comment(s): not following commands - Psychiatric Psychiatric Comment(s): limited insight - Labs CBC & Chem 7: 06/11/19 04:20 06/11/19 04:20 Labs: Abnormal Lab Results - Last 24 Hours (Table) 06/10/19 06/10/19 06/10/19 Range/Units 17:19 17:20 23:27 WBC (3.8-10.6) k/uL Hgb (11.4-16.0) gm/dL MCV (80.0-100.0) fL MCH (25.0-35.0) pg MCHC (31.0-37.0) g/dL RDW (11.5-15.5) % Plt Count (150-450) k/uL Neutrophils # (Manual) (1.3-7.7) k/uL Lymphocytes # (Manual) (1.0-4.8) k/uL Metamyelocytes # (Man) (0) k/uL ABG pH (7.35-7.45) ABG pCO2 (35-45) mmHg ABG O2 Saturation (94-97) % Sodium 136 L (137-145) mmol/L Carbon Dioxide 21 L (22-30) mmol/L BUN 32 H (7-17) mg/dL Creatinine 1.38 H (0.52-1.04) mg/dL Glucose 164 H (74-99) mg/dL POC Glucose (mg/dL) 177 H 145 H (75-99) mg/dL Calcium 7.5 L (8.4-10.2) mg/dL Phosphorus (2.5-4.5) mg/dL Ferritin (10.0-291.0) ng/mL AST 51 H (14-36) U/L ALT 106 H (4-34) U/L Alkaline Phosphatase 179 H (38-126) U/L Lactate Dehydrogenase (313-618) U/L CK-MB (CK-2) (0.0-2.4) ng/mL C-Reactive Protein (<10.0) mg/L Total Protein 4.7 L (6.3-8.2) g/dL Albumin 2.2 L (3.5-5.0) g/dL Triglycerides (<150) mg/dL 06/10/19 06/11/19 06/11/19 Range/Units 23:49 04:20 04:20 WBC 46.7 H (3.8-10.6) k/uL Hgb 10.6 L (11.4-16.0) gm/dL MCV 76.5 L (80.0-100.0) fL MCH 23.3 L (25.0-35.0) pg MCHC 30.5 L (31.0-37.0) g/dL RDW 20.4 H (11.5-15.5) % Plt Count 574 H (150-450) k/uL Neutrophils # (Manual) 45.20 H (1.3-7.7) k/uL Lymphocytes # (Manual) 0.93 L (1.0-4.8) k/uL Metamyelocytes # (Man) 0.47 H (0) k/uL ABG pH (7.35-7.45) ABG pCO2 (35-45) mmHg ABG O2 Saturation (94-97) % Sodium 135 L (137-145) mmol/L Carbon Dioxide (22-30) mmol/L BUN 37 H (7-17) mg/dL Creatinine 1.51 H (0.52-1.04) mg/dL Glucose 190 H (74-99) mg/dL POC Glucose (mg/dL) 176 H (75-99) mg/dL Calcium 7.4 L (8.4-10.2) mg/dL Phosphorus 7.5 H (2.5-4.5) mg/dL Ferritin 5409.7 H (10.0-291.0) ng/mL AST 43 H (14-36) U/L ALT 104 H (4-34) U/L Alkaline Phosphatase 182 H (38-126) U/L Lactate Dehydrogenase 1577 H (313-618) U/L CK-MB (CK-2) (0.0-2.4) ng/mL C-Reactive Protein 148.9 H (<10.0) mg/L Total Protein 4.7 L (6.3-8.2) g/dL Albumin 2.3 L (3.5-5.0) g/dL Triglycerides 347 H (<150) mg/dL 06/11/19 06/11/19 06/11/19 Range/Units 04:20 05:20 05:50 WBC (3.8-10.6) k/uL Hgb (11.4-16.0) gm/dL MCV (80.0-100.0) fL MCH (25.0-35.0) pg MCHC (31.0-37.0) g/dL RDW (11.5-15.5) % Plt Count (150-450) k/uL Neutrophils # (Manual) (1.3-7.7) k/uL Lymphocytes # (Manual) (1.0-4.8) k/uL Metamyelocytes # (Man) (0) k/uL ABG pH 7.24 L (7.35-7.45) ABG pCO2 50 H (35-45) mmHg ABG O2 Saturation 97.7 H (94-97) % Sodium (137-145) mmol/L Carbon Dioxide (22-30) mmol/L BUN (7-17) mg/dL Creatinine (0.52-1.04) mg/dL Glucose (74-99) mg/dL POC Glucose (mg/dL) 196 H (75-99) mg/dL Calcium (8.4-10.2) mg/dL Phosphorus (2.5-4.5) mg/dL Ferritin (10.0-291.0) ng/mL AST (14-36) U/L ALT (4-34) U/L Alkaline Phosphatase (38-126) U/L Lactate Dehydrogenase (313-618) U/L CK-MB (CK-2) 4.1 H (0.0-2.4) ng/mL C-Reactive Protein (<10.0) mg/L Total Protein (6.3-8.2) g/dL Albumin (3.5-5.0) g/dL Triglycerides (<150) mg/dL 06/11/19 Range/Units 11:24 WBC (3.8-10.6) k/uL Hgb (11.4-16.0) gm/dL MCV (80.0-100.0) fL MCH (25.0-35.0) pg MCHC (31.0-37.0) g/dL RDW (11.5-15.5) % Plt Count (150-450) k/uL Neutrophils # (Manual) (1.3-7.7) k/uL Lymphocytes # (Manual) (1.0-4.8) k/uL Metamyelocytes # (Man) (0) k/uL ABG pH (7.35-7.45) ABG pCO2 (35-45) mmHg ABG O2 Saturation (94-97) % Sodium (137-145) mmol/L Carbon Dioxide (22-30) mmol/L BUN (7-17) mg/dL Creatinine (0.52-1.04) mg/dL Glucose (74-99) mg/dL POC Glucose (mg/dL) 180 H (75-99) mg/dL Calcium (8.4-10.2) mg/dL Phosphorus (2.5-4.5) mg/dL Ferritin (10.0-291.0) ng/mL AST (14-36) U/L ALT (4-34) U/L Alkaline Phosphatase (38-126) U/L Lactate Dehydrogenase (313-618) U/L CK-MB (CK-2) (0.0-2.4) ng/mL C-Reactive Protein (<10.0) mg/L Total Protein (6.3-8.2) g/dL Albumin (3.5-5.0) g/dL Triglycerides (<150) mg/dL Microbiology - Last 24 Hours (Table) 06/08/19 Unknown Gram Stain - Final Sputum Sputum Culture - Final Methicillin resist S. aureus Bernadette albicans 06/10/19 05:40 Blood Culture - Preliminary Blood No Growth after 24 hours Assessment and Plan (1) Pneumonia due to COVID-19 virus Narrative/Plan: Patient has been febrile, chest x-ray with bilateral lung infiltrates sputum cu lture positive for MRSA patient on cefepime and vancomycin. Appreciate pulmonary and ID input Current Visit: Yes Status: Acute Code(s): U07.1 - COVID-19; J12.89 - OTHER VIRAL PNEUMONIA SNOMED Code(s): 820928252 (2) Renal failure, acute Narrative/Plan: Appreciate nephrology input, bicarb drip to be discontinued patient continues to be anuric and hypervolemic. Nephrology plans renal replacement therapy once consent is obtained Current Visit: Yes Status: Acute Code(s): N17.9 - ACUTE KIDNEY FAILURE, UNSPECIFIED SNOMED Code(s): 23441955 (3) NSTEMI (non-ST elevated myocardial infarction) Narrative/Plan: Secondary to demand ischemia Current Visit: Yes Status: Acute Code(s): I21.4 - NON-ST ELEVATION (NSTEMI) MYOCARDIAL INFARCTION SNOMED Code(s): 96874130 Plan: Patient continues to have coronary prognosis she is now DO NOT RESUSCITATE continue care as detailed above
[2019-06-11 17:21] LABS: Glucose,Whole Blood 150 mg/dL (75-99)
--- NOTE | 2019-06-11 17:27 | CONS ---
DATE OF CONSULTATION: 06/11/2019 A 78-year-old female with a history of acute chronic renal failure. I was consulted for placement of urgent dialysis catheter. The patient has COVID-19. She has been intubated. PHYSICAL EXAMINATION: Patient was seen in the intensive care unit. Patient has been intubated. Chest has crackles. Abdomen is soft. Femorals are not palpable. Patient has some swelling of both lower extremities. PLAN: Placement of the dialysis catheter. Risks and complications discussed. MMTRACYL / WILFREDON: [id number] / MTDD
--- NOTE | 2019-06-11 18:00 | PCN ---
PROCEDURE NOTE PREOPERATIVE DIAGNOSIS: Acute Covid-19 with a history of renal failure. PROCEDURE PERFORMED: Ultrasound-guided dialysis catheter placed right femoral approach. DESCRIPTION OF PROCEDURE: The patient was seen in the room. Right groin was prepped and draped in a sterile manner. Ultrasound-guided micropuncture into the right common femoral vein and micropuncture guidewire was passed and 4-Uzbek dilator advanced on top of the guidewire. After that, we passed a regular guidewire. Then we advanced the dilator on the top of the guidewire without any resistance and after that we placed a triple-lumen dialysis catheter on the top of the guidewire. There was a free flow noted, flushed with heparin saline and hep-locked and secured with 3-0 nylon. Dressing applied. Patient tolerated the procedure well. MMODL / IJN: [id number] /
[2019-06-11 20:36] LABS: Hepatitis B Surface AB- Quant 3.5 mIU/mL; Hepatitis B Surface Antibody Non-Reactive (Non-Reactive); Hepatitis B Surface Antigen Non-Reactive (Non-Reactive)
--- NOTE | 2019-06-11 23:52 | PN ---
PROGRESS NOTE DATE OF SERVICE: 06/11/2019 REASON FOR FOLLOWUP: Pneumonia. INTERVAL HISTORY: The patient is currently afebrile. The patient is hemodynamically stable. Has been taken off the pressor support. FiO2 is down to 14%. No significant purulent secretion through the ET or any diarrhea reported by the nursing staff. PHYSICAL EXAMINATION: Blood pressure 116/48 with a pulse of 103, temperature 97.7. She is 99% on 40% FiO2. General description is an elderly female intubated on the vent. Respiratory system: Unlabored breathing, clear to auscultation anteriorly. Heart S1, S2. Regular rate and rhythm. Abdomen soft. No distention. LABS: Hemoglobin is 10.6, white count 46.7, down from yesterday of 19,000. Sputum is MRSA, urine with Bernadette albicans. DIAGNOSTIC IMPRESSION AND PLAN: Patient with acute respiratory failure which is multifactorial in this patient who did have a component of pneumonia. Sputum has been MRSA with evidence of Bernadette likely indication of oropharyngeal candidiasis. The patient is covered with vancomycin. We will add Diflucan and monitor her clinical course closely. MMODL / IJN: [id number] /
[2019-06-11 23:58] LABS: Glucose,Whole Blood 124 mg/dL (75-99)
[2019-06-12] MEDS: ARTIFICIAL TEARS-HYPROMELLOSE DROPS 15 ML BTL BOTH EYES SCH ×6 (00:13→21:02)
[2019-06-12] MEDS: INSULIN ASPART (NovoLOG) 100 UNIT/ML VIAL SQ SCH ×4 (00:54→17:19)
[2019-06-12] MEDS: CISATRACURIUM 200 MG in SODIUM CHLORIDE 0.9% 100 ML IV SCH ×2 (01:32→22:14)
[2019-06-12] MEDS: DILTIAZEM 125 MG in SODIUM CHLORIDE 0.9% 100 ML IV SCH ×3 (04:21→22:13)
[2019-06-12 04:37] LABS: Anisocytosis Moderate; HCT 34.8 % (34.0-46.0); HGB 10.3 gm/dL (11.4-16.0); Hypochromasia Marked; MCH 23.1 pg (25.0-35.0); MCHC 29.6 g/dL (31.0-37.0); MCV 77.9 fL (80.0-100.0); Microcytosis Slight; Platelet Count 681 k/uL (150-450); Poikilocytosis Moderate; RBC 4.47 m/uL (3.80-5.40); RDW 20.2 % (11.5-15.5)
[2019-06-12 04:48] LABS: WBC 50.6 k/uL (3.8-10.6)
[2019-06-12 05:10] LABS: ALT 95 U/L (4-34); AST 27 U/L (14-36); African American GFR (CKD) 39 (>60 ml/min/1.73 sqM); Albumin 2.4 g/dL (3.5-5.0); Alkaline Phosphatase 188 U/L (38-126); Anion Gap 13 mmol/L; Blood Urea Nitrogen 35 mg/dL (7-17); C Reactive Protein 63.2 mg/L (<10.0); Calcium 7.7 mg/dL (8.4-10.2); Carbon Dioxide 20 mmol/L (22-30); Chloride 100 mmol/L (98-107); Creatine Kinase <20 U/L (30-135); Glucose 159 mg/dL (74-99); LDH 1377 U/L (313-618); Non-African American GFR(CKD) 34 (>60 ml/min/1.73 sqM); Potassium 4.4 mmol/L (3.5-5.1); Sodium 133 mmol/L (137-145); Total Bilirubin 0.3 mg/dL (0.2-1.3); Total Protein 4.8 g/dL (6.3-8.2)
[2019-06-12 05:34] LABS: ABG Base Excess -6.8 mmol/L; ABG HCO3 21 mmol/L (21-25); ABG Oxygen Saturation 93.2 % (94-97); ABG PCO2 53 mmHg (35-45); ABG PH 7.21 (7.35-7.45); ABG PO2 77 mmHg (83-108); ABG TCO2 23 mmol/L (19-24); Allen Test Performed? Yes
[2019-06-12 06:03] LABS: Glucose,Whole Blood 158 mg/dL (75-99)
--- NOTE | 2019-06-12 07:00 | XR ---
EXAMINATION TYPE: XR chest 1V DATE OF EXAM: 06/12/2019 HISTORY: intubated. REFERENCE: Previous study dated 06/11/2019. FINDINGS: The patient is ET tube, NG tube and left internal jugular catheter remain in place, unchang ed in appearance. There is continuing left basilar airspace disease which may have worsened slightly. There is also alejandra ateral peripheral airspace disease. There is blunting of both CP angles and I cannot exclude small ef fusions. IMPRESSION: OVERALL APPEARS TO BE SLIGHT WORSENING IN THE APPEARANCE OF THE CHEST.
[2019-06-12] MEDS: ALBUTEROL HFA INHALER INHALATION PRN ×2 (08:03→20:02)
--- NOTE | 2019-06-12 08:20 | P.PN ---
Subjective Progress Note Date: 06/12/19 Principal diagnosis: This is 78-year old female followed up with: Pneumonia, acute kidney injury requiring dialysis started yesterday with a temporary dialysis catheter dated 06/11/2019 As per the nursing staff patient is stable on small doses of levo fed currently is on 40% FiO2. She was dialyzed yesterday without any problems. She is normal sinus rhythm, anuric. Other than that, with pneumonia she has E. coli UTI and sputum is growing Bernadette had MSSA Objective - Vital Signs Vital signs: Vital Signs Temp 98.8 F 06/12/19 04:00 Pulse 113 H 06/12/19 07:30 Resp 30 H 06/12/19 07:30 BP 108/44 06/11/19 19:46 Pulse Ox 96 06/12/19 07:30 Intake & Output 06/11/19 06/12/19 06/12/19 18:59 06:59 18:59 Intake Total 2282.181 9029.692 52 Output Total 0 40 0 Balance 6624.403 9805.692 52 Weight 78.6 kg 83.9 kg Intake: IV 266 312 26 Normal Saline Pressure 66 72 6 Bag Sodium Chloride 0.9% 1, 200 240 20 000 ml @ 20 mls/hr IV . Q24H [facility] Rx#:[id number] Intake, IV Titration 1354.701 496.692 Amount Cefepime 2 gm In Sodium 100 Chloride 0.9% 100 ml @ 200 mls/hr IVPB Q12HR [facility] Rx#:[id number] Cisatracurium 200 mg In 200 Sodium Chloride 0.9% 100 ml @ 2 MCG/KG/MIN 8.872 mls/hr IV .[id number] [facility] Rx #:[id number] Dextrose 5% in Water 1, 75 000 ml @ 75 mls/hr IV . [id number] [facility] with Sodium Bicarb (1 Meq/ml) 150 ml Rx#:[id number] Diltiazem 125 mg In 97.5 114.708 Sodium Chloride 0.9% 100 ml @ Per Protocol IV .Q0M [facility] Rx#:[id number] Norepinephrine 8 mg In 130.551 115.41 Sodium Chloride 0.9% 250 ml @ 0.05 MCG/KG/MIN 7. 153 mls/hr IV .Q24H [facility] Rx#:[id number] Propofol 1,000 mg In 301.65 266.574 Empty Bag 1 bag @ Titrate IV .Q0M [facility] Rx#: [id number] Sodium Chloride 0.9% 1, 200 000 ml @ 50 mls/hr IV . Q20H [facility] Rx#:[id number] Vancomycin 1,250 mg In 250 Sodium Chloride 0.9% 250 ml @ 125 mls/hr IVPB Q24H [facility] Rx#:[id number] Tube Feeding 286 312 26 Other 60 90 Output: Urine 0 40 0 Hemodialysis 0 Other: Voiding Method Indwelling Catheter Indwelling Catheter ABP, PAP, CO, CI - Last Documented Arterial Blood Pressure 106/47 On examination patient was.physical exam. Per the nursing staff there is no edema Lungs are clear on the vent. Patient is sedated - Labs CBC & Chem 7: 06/12/19 04:10 06/12/19 04:10 Labs: Abnormal Lab Results - Last 24 Hours (Table) 06/11/19 06/11/19 06/11/19 Range/Units 04:20 11:24 17:19 WBC (3.8-10.6) k/uL Hgb (11.4-16.0) gm/dL MCV (80.0-100.0) fL MCH (25.0-35.0) pg MCHC (31.0-37.0) g/dL RDW (11.5-15.5) % Plt Count (150-450) k/uL D-Dimer (<0.60) mg/L FEU ABG pH (7.35-7.45) ABG pCO2 (35-45) mmHg ABG pO2 (83-108) mmHg ABG O2 Saturation (94-97) % Sodium (137-145) mmol/L Carbon Dioxide (22-30) mmol/L BUN (7-17) mg/dL Creatinine (0.52-1.04) mg/dL Glucose (74-99) mg/dL POC Glucose (mg/dL) 180 H 150 H (75-99) mg/dL Calcium (8.4-10.2) mg/dL Ferritin 5409.7 H (10.0-291.0) ng/mL ALT (4-34) U/L Alkaline Phosphatase (38-126) U/L Lactate Dehydrogenase (313-618) U/L Creatine Kinase (30-135) U/L C-Reactive Protein (<10.0) mg/L Total Protein (6.3-8.2) g/dL Albumin (3.5-5.0) g/dL 06/11/19 06/12/19 06/12/19 Range/Units 23:57 04:10 04:10 WBC 50.6 H* (3.8-10.6) k/uL Hgb 10.3 L (11.4-16.0) gm/dL MCV 77.9 L (80.0-100.0) fL MCH 23.1 L (25.0-35.0) pg MCHC 29.6 L (31.0-37.0) g/dL RDW 20.2 H (11.5-15.5) % Plt Count 681 H (150-450) k/uL D-Dimer 1.18 H (<0.60) mg/L FEU ABG pH (7.35-7.45) ABG pCO2 (35-45) mmHg ABG pO2 (83-108) mmHg ABG O2 Saturation (94-97) % Sodium (137-145) mmol/L Carbon Dioxide (22-30) mmol/L BUN (7-17) mg/dL Creatinine (0.52-1.04) mg/dL Glucose (74-99) mg/dL POC Glucose (mg/dL) 124 H (75-99) mg/dL Calcium (8.4-10.2) mg/dL Ferritin (10.0-291.0) ng/mL ALT (4-34) U/L Alkaline Phosphatase (38-126) U/L Lactate Dehydrogenase (313-618) U/L Creatine Kinase (30-135) U/L C-Reactive Protein (<10.0) mg/L Total Protein (6.3-8.2) g/dL Albumin (3.5-5.0) g/dL 06/12/19 06/12/19 06/12/19 Range/Units 04:10 05:32 06:01 WBC (3.8-10.6) k/uL Hgb (11.4-16.0) gm/dL MCV (80.0-100.0) fL MCH (25.0-35.0) pg MCHC (31.0-37.0) g/dL RDW (11.5-15.5) % Plt Count (150-450) k/uL D-Dimer (<0.60) mg/L FEU ABG pH 7.21 L (7.35-7.45) ABG pCO2 53 H (35-45) mmHg ABG pO2 77 L (83-108) mmHg ABG O2 Saturation 93.2 L (94-97) % Sodium 133 L (137-145) mmol/L Carbon Dioxide 20 L (22-30) mmol/L BUN 35 H (7-17) mg/dL Creatinine 1.50 H (0.52-1.04) mg/dL Glucose 159 H (74-99) mg/dL POC Glucose (mg/dL) 158 H (75-99) mg/dL Calcium 7.7 L (8.4-10.2) mg/dL Ferritin (10.0-291.0) ng/mL ALT 95 H (4-34) U/L Alkaline Phosphatase 188 H (38-126) U/L Lactate Dehydrogenase 1377 H (313-618) U/L Creatine Kinase <20 L (30-135) U/L C-Reactive Protein 63.2 H (<10.0) mg/L Total Protein 4.8 L (6.3-8.2) g/dL Albumin 2.4 L (3.5-5.0) g/dL Microbiology - Last 24 Hours (Table) 06/10/19 05:40 Blood Culture - Preliminary Blood No Growth after 48 hours 06/09/19 18:00 Urine Culture - Final Urine,Voided Bernadette albicans 06/08/19 Unknown Gram Stain - Final Sputum Sputum Culture - Final Methicillin resist S. aureus Bernadette albicans Assessment and Plan Assessment: Impression 1. Acute kidney injury from sepsis secondary to call with pneumonia at the [facility] and started on dialysis yesterday for 2019 tolerated 2. Remains and anuric, 3. Bilateral pneumonia 4. E. coli UTI 5. Respiratory acidosis with a pH of 7.2 and pCO2 of 53. 6. Mild hyponatremia secondary to acute kidney injury 7. Mild non-gap acidosis with bicarb of 20 and a gap of 13, etiology is Acute kidney injury. 8. Hypotensive on levo fed. 9. Hyperphosphatemia on binders Recommendation 1. They did blood pressure with Venofer 2. We will continue dialysis today. We'll ultrafiltrate on a 1 L if she tolerates it with's sodium modeling and cold dialysate. Her blood pressure goes down we will stop her dialysis as her labs are fairly satisfactory 3. Watch electrolytes and acid-base
[2019-06-12] MEDS: ASCORBIC ACID 500 MG TAB PO SCH ×2 (09:10→21:00)
[2019-06-12] MEDS: HYDROXYCHLOROQUINE ORAL SUSP 200 MG/8 ML ORAL.SYRG PO SCH ×2 (09:10→21:00)
[2019-06-12] MEDS: CALCIUM ACETATE 667 MG TAB PO SCH ×3 (09:10→16:44)
[2019-06-12] MEDS: ENOXAPARIN 60 MG/0.6 ML SYRINGE SQ SCH (09:10)
[2019-06-12] MEDS: CHLORHEXIDINE GLUCONATE 15 ML CUP MUCOUS MEM SCH ×2 (09:10→21:00)
[2019-06-12] MEDS: PARoxetine 10 MG TAB PO SCH (09:11)
[2019-06-12] MEDS: ZINC SULFATE 220 MG CAP PO SCH (09:11)
[2019-06-12] MEDS: CEFEPIME 2 GM in SODIUM CHLORIDE 0.9% 100 ML IVPB SCH (09:11)
[2019-06-12] MEDS: ASPIRIN 81 MG PO SCH (09:11)
[2019-06-12] MEDS: methylPREDNISolone SOD SUCCI 40 MG/ML 1 ML VIAL IV SCH ×2 (09:11→21:00)
[2019-06-12] MEDS: FLUCONAZOLE IN NACL,ISO-OSM 100 MG in SALINE 1 50ML.BAG IVPB SCH (09:41)
[2019-06-12] MEDS: PANTOPRAZOLE 40 MG/10 ML VIAL IVP SCH (09:41)
--- NOTE | 2019-06-12 10:54 | P.PN ---
Subjective Progress Note Date: 06/12/19 Principal diagnosis: Acute hypoxemic and hypercapnic respiratory failure secondary to acute covert 19 pneumonia. Septic shock related to MRSA pneumonia. The patient is seen today 06/12/2019 in follow-up in the intensive care unit. She remains intubated and sedated. Current vent settings are assist control rate 30, tidal volume 350, FiO2 40% and a PEEP of 15. Morning blood gases revealed a PaO2 of 77, pCO2 53, pH 7.21. She remains sedated on propofol at 70 mg/kg/m. Nimbex at 2 mcg/kg/m. Norepinephrine at 0.15 mcg/kg/m. Cardizem at 7.5 mg per hour. She is currently on vancomycin and cefepime. Sputum is positive for MRSA. Blood culture reveals no growth. White count 50.6. Hemoglobin 10.3. Platelet count 681. D-dimer 1.18. Sodium 133. Potassium 4.4. Creatinine 1.50. AST 27, ALT 95. Lactic dehydrogenase 1377, creatinine kinase less than 20, C-reactive protein 63.2. All are trending down. She is being nourished with vital AF at 26 ML's per hour which is goal. Chest x-ray continues to show left basilar airspace disease slightly worse compared to pre vious. Bilateral peripheral airspace disease. Blunting the costophrenic angles. She is due for hemodialysis today. Objective - Vital Signs Vital signs: Vital Signs Temp 98.8 F 06/12/19 04:00 Pulse 113 H 06/12/19 07:30 Resp 30 H 06/12/19 07:30 BP 108/44 06/11/19 19:46 Pulse Ox 96 06/12/19 07:30 Intake & Output 06/11/19 06/12/19 06/12/19 18:59 06:59 18:59 Intake Total 2665.404 1981.692 318.243 Output Total 0 40 0 Balance 9375.710 4607.692 318.243 Weight 78.6 kg 83.9 kg Intake: IV 266 312 26 Normal Saline Pressure 66 72 6 Bag Sodium Chloride 0.9% 1, 200 240 20 000 ml @ 20 mls/hr IV . Q24H [facility] Rx#:[id number] Intake, IV Titration 1354.701 496.692 266.243 Amount Cefepime 2 gm In Sodium 100 Chloride 0.9% 100 ml @ 200 mls/hr IVPB Q12HR [facility] Rx#:[id number] Cisatracurium 200 mg In 200 Sodium Chloride 0.9% 100 ml @ 2 MCG/KG/MIN 8.872 mls/hr IV .[id number] [facility] Rx #:[id number] Dextrose 5% in Water 1, 75 000 ml @ 75 mls/hr IV . [id number] [facility] with Sodium Bicarb (1 Meq/ml) 150 ml Rx#:[id number] Diltiazem 125 mg In 97.5 114.708 Sodium Chloride 0.9% 100 ml @ Per Protocol IV .Q0M [facility] Rx#:[id number] Norepinephrine 8 mg In 130.551 115.41 166.243 Sodium Chloride 0.9% 250 ml @ 0.05 MCG/KG/MIN 7. 153 mls/hr IV .Q24H [facility] Rx#:[id number] Propofol 1,000 mg In 301.65 266.574 100 Empty Bag 1 bag @ Titrate IV .Q0M [facility] Rx#: [id number] Sodium Chloride 0.9% 1, 200 000 ml @ 50 mls/hr IV . Q20H [facility] Rx#:[id number] Vancomycin 1,250 mg In 250 Sodium Chloride 0.9% 250 ml @ 125 mls/hr IVPB Q24H [facility] Rx#:[id number] Tube Feeding 286 312 26 Other 60 90 Output: Urine 0 40 0 Hemodialysis 0 Other: Voiding Method Indwelling Catheter Indwelling Catheter ABP, PAP, CO, CI - Last Documented Arterial Blood Pressure 106/47 - Exam GENERAL EXAM: 78-year-old white female, intubated, sedated on mechanical ventilator. Patient is paralyzed, sedated. HEAD: Normocephalic/atraumatic. EYES: Normal reaction of pupils, equal size. Conjunctiva pink, sclera white. NOSE: Clear with pink turbinates. THROAT: No erythema or exudates. NECK: No masses, no JVD, no thyroid enlargement, no adenopathy. CHEST: No chest wall deformity. Symmetrical expansion. LUNGS: Equal air entry with crackles in the bilateral posterior bases. CVS: Regular rate and rhythm, normal S1 and S2, no gallops, no murmurs, no rubs ABDOMEN: Soft, nontender. No hepatosplenomegaly, normal bowel sounds, no guarding or rigidity. EXTREMITIES: No clubbing, no edema, no cyanosis, 2+ pulses and upper and lower extremities. MUSCULOSKELETAL: Muscle strength and tone normal. SPINE: No scoliosis or deformity SKIN: No rashes CENTRAL NERVOUS SYSTEM: Intubated, sedated. No focal deficits, tone is normal in all 4 extremities. - Labs CBC & Chem 7: 06/12/19 04:10 06/12/19 04:10 Labs: Abnormal Lab Results - Last 24 Hours (Table) 06/11/19 06/11/19 06/11/19 Range/Units 04:20 11:24 17:19 WBC (3.8-10.6) k/uL Hgb (11.4-16.0) gm/dL MCV (80.0-100.0) fL MCH (25.0-35.0) pg MCHC (31.0-37.0) g/dL RDW (11.5-15.5) % Plt Count (150-450) k/uL D-Dimer (<0.60) mg/L FEU ABG pH (7.35-7.45) ABG pCO2 (35-45) mmHg ABG pO2 (83-108) mmHg ABG O2 Saturation (94-97) % Sodium (137-145) mmol/L Carbon Dioxide (22-30) mmol/L BUN (7-17) mg/dL Creatinine (0.52-1.04) mg/dL Glucose (74-99) mg/dL POC Glucose (mg/dL) 180 H 150 H (75-99) mg/dL Calcium (8.4-10.2) mg/dL Ferritin 5409.7 H (10.0-291.0) ng/mL ALT (4-34) U/L Alkaline Phosphatase (38-126) U/L Lactate Dehydrogenase (313-618) U/L Creatine Kinase (30-135) U/L C-Reactive Protein (<10.0) mg/L Total Protein (6.3-8.2) g/dL Albumin (3.5-5.0) g/dL 06/11/19 06/12/19 06/12/19 Range/Units 23:57 04:10 04:10 WBC 50.6 H* (3.8-10.6) k/uL Hgb 10.3 L (11.4-16.0) gm/dL MCV 77.9 L (80.0-100.0) fL MCH 23.1 L (25.0-35.0) pg MCHC 29.6 L (31.0-37.0) g/dL RDW 20.2 H (11.5-15.5) % Plt Count 681 H (150-450) k/uL D-Dimer 1.18 H (<0.60) mg/L FEU ABG pH (7.35-7.45) ABG pCO2 (35-45) mmHg ABG pO2 (83-108) mmHg ABG O2 Saturation (94-97) % Sodium (137-145) mmol/L Carbon Dioxide (22-30) mmol/L BUN (7-17) mg/dL Creatinine (0.52-1.04) mg/dL Glucose (74-99) mg/dL POC Glucose (mg/dL) 124 H (75-99) mg/dL Calcium (8.4-10.2) mg/dL Ferritin (10.0-291.0) ng/mL ALT (4-34) U/L Alkaline Phosphatase (38-126) U/L Lactate Dehydrogenase (313-618) U/L Creatine Kinase (30-135) U/L C-Reactive Protein (<10.0) mg/L Total Protein (6.3-8.2) g/dL Albumin (3.5-5.0) g/dL 06/12/19 06/12/19 06/12/19 Range/Units 04:10 05:32 06:01 WBC (3.8-10.6) k/uL Hgb (11.4-16.0) gm/dL MCV (80.0-100.0) fL MCH (25.0-35.0) pg MCHC (31.0-37.0) g/dL RDW (11.5-15.5) % Plt Count (150-450) k/uL D-Dimer (<0.60) mg/L FEU ABG pH 7.21 L (7.35-7.45) ABG pCO2 53 H (35-45) mmHg ABG pO2 77 L (83-108) mmHg ABG O2 Saturation 93.2 L (94-97) % Sodium 133 L (137-145) mmol/L Carbon Dioxide 20 L (22-30) mmol/L BUN 35 H (7-17) mg/dL Creatinine 1.50 H (0.52-1.04) mg/dL Glucose 159 H (74-99) mg/dL POC Glucose (mg/dL) 158 H (75-99) mg/dL Calcium 7.7 L (8.4-10.2) mg/dL Ferritin (10.0-291.0) ng/mL ALT 95 H (4-34) U/L Alkaline Phosphatase 188 H (38-126) U/L Lactate Dehydrogenase 1377 H (313-618) U/L Creatine Kinase <20 L (30-135) U/L C-Reactive Protein 63.2 H (<10.0) mg/L Total Protein 4.8 L (6.3-8.2) g/dL Albumin 2.4 L (3.5-5.0) g/dL Microbiology - Last 24 Hours (Table) 06/10/19 05:40 Blood Culture - Preliminary Blood No Growth after 48 hours 06/09/19 18:00 Urine Culture - Final Urine,Voided Bernadette albicans 06/08/19 Unknown Gram Stain - Final Sputum Sputum Culture - Final Methicillin resist S. aureus Bernadette albicans Assessment and Plan Assessment: #1. Septic shock related to MRSA pneumonia. Current coverage includes cefepime, and vancomycin. Patient required re-intubation and placement on mechanical ventilation on 06/09/2019. #2. Non-anion gap metabolic acidosis related to acute kidney injury secondary to sepsis #3. Acute hypoxemic and hypercapnic respiratory failure related to acute COVID 19 related pneumonia, chest x-ray on 05/31/2019 showed progressive worsening of the multifocal interstitial and alveolar opacities most pronounced in the right midlung. Patient required intubation and placement on mechanical ventilator on 05/31/2019, she was successfully weaned and extubated on 06/04/2019. However today on 06/09/2019 patient has developed a worsening hypoxemia, requiring transfer back to the intensive care unit and reintubation and placement on mechanical ventilator #4. Acute kidney injury, worsened on today's labs, and patient is anuric, receiving hemodialysis #5. A. fib with RVR related to sepsis, the rate is better controlled on Cardizem drip #6. Acute leukocytosis, bandemia, likely related to acute sepsis #7. Elevated LDH, ferritin related to COVID 19 infection #8. Elevated troponins #9. Acute urinary tract infection, related to E. coli #10. History of hypertension #11. Depression #12. Recent history of large soft tissue mass involving the posterior right hip status post biopsy, results are pending #13. Ex-smoker Plan: The patient was seen and evaluated by Dr. Hanson Chest x-ray, ABGs and labs all reviewed No changes planned for today Daily interruption of sedation Titrate down the FiO2 as tolerated Continue Plaquenil IL- 6 still pending Overall prognosis remains poor The patient is a DO NOT RESUSCITATE/DO NOT INTUBATE CODE STATUS We'll continue to follow and make further recommendations based on her clinical status. Critical care time 38 minutes I, the cosigning physician, performed a history & physical examination of the patient. Lungs sounds crackles in the bilateral posterior bases. Maintaining good O2 saturations in the 90s on 40% FiO2 on mechanical ventilator. I discussed the assessment and plan of care with my nurse practitioner, Zohra Casarez. I attest to the above note as dictated by her.
[2019-06-12 11:29] LABS: Glucose,Whole Blood 176 mg/dL (75-99)
--- NOTE | 2019-06-12 14:07 | P.PN ---
Subjective Progress Note Date: 06/12/19 Principal diagnosis: COVID pneumonia Patient is a 78-year-old female who was initially admitted to the emergency room for elevated troponin of 0.4182 T-wave inversions. Patient was started on aspirin, heparin drip and was admitted for non-ST elevation OK. Patient was admitted on the first and May 26 she was noted to have a urinary tract infection, Covid 19 infection. Her elevated troponin was determined to be secondary to demand ischemia, urine cultures showed E. coli sensitive to Rocephin. Initially, on hospitalization patient was a DO NOT RESUSCITATE however when she was declining her family changed her to a full code. Patient required intubation for respiratory failure she was subsequently extubated and June 03 was then transferred to the general medical floor. Patient subsequently declined and was reintubated on June 09. She also developed renal failure and was dialyzed on June 10. Objective - Vital Signs Vital signs: Vital Signs Temp 98.0 F 06/12/19 13:28 Pulse 126 H 06/12/19 13:28 Resp 30 H 06/12/19 13:28 BP 107/51 06/12/19 13:28 Pulse Ox 93 L 06/12/19 13:00 Intake & Output 06/11/19 06/12/19 06/12/19 18:59 06:59 18:59 Intake Total 8037.890 7596.692 907.655 Output Total 0 40 1005 Balance 9512.927 1683.692 -97.345 Weight 78.6 kg 83.9 kg Intake: IV 266 312 442 Cefepime 2 gm In Sodium 100 Chloride 0.9% 100 ml @ 200 mls/hr IVPB Q24HR [facility] Rx#:[id number] Fluconazole in NaCl,Iso- 100 Osm 100 mg In Saline 1 50ml.bag @ 50 mls/hr IVPB DAILY [facility] Rx#:[id number] Normal Saline Pressure 66 72 102 Bag Sodium Chloride 0.9% 1, 200 240 140 000 ml @ 20 mls/hr IV . Q24H [facility] Rx#:[id number] Intake, IV Titration 1354.701 496.692 439.655 Amount Cefepime 2 gm In Sodium 100 Chloride 0.9% 100 ml @ 200 mls/hr IVPB Q12HR [facility] Rx#:[id number] Cisatracurium 200 mg In 200 Sodium Chloride 0.9% 100 ml @ 2 MCG/KG/MIN 8.872 mls/hr IV .[id number] [facility] Rx #:[id number] Dextrose 5% in Water 1, 75 000 ml @ 75 mls/hr IV . [id number] [facility] with Sodium Bicarb (1 Meq/ml) 150 ml Rx#:[id number] Diltiazem 125 mg In 97.5 114.708 Sodium Chloride 0.9% 100 ml @ Per Protocol IV .Q0M [facility] Rx#:[id number] Norepinephrine 8 mg In 130.551 115.41 166.243 Sodium Chloride 0.9% 250 ml @ 0.05 MCG/KG/MIN 7. 153 mls/hr IV .Q24H [facility] Rx#:[id number] Propofol 1,000 mg In 301.65 266.574 273.412 Empty Bag 1 bag @ Titrate IV .Q0M [facility] Rx#: [id number] Sodium Chloride 0.9% 1, 200 000 ml @ 50 mls/hr IV . Q20H [facility] Rx#:[id number] Vancomycin 1,250 mg In 250 Sodium Chloride 0.9% 250 ml @ 125 mls/hr IVPB Q24H [facility] Rx#:[id number] Tube Feeding 286 312 26 Other 60 90 Output: Urine 0 40 5 Hemodialysis 0 1000 Other: Voiding Method Indwelling Catheter Indwelling Catheter Indwelling Catheter # Voids 1 ABP, PAP, CO, CI - Last Documented Arterial Blood Pressure 88/44 - Constitutional Constitutional Comment(s): Intubated, sedated - Respiratory Respiratory: bilateral: diminished - Cardiovascular Rhythm: regular - Gastrointestinal General gastrointestinal: Present: decreased bowel sounds - Integumentary Integumentary Comment(s): no Sacral skin breakdown - Psychiatric Psychiatric Comment(s): Limited - Labs CBC & Chem 7: 06/12/19 04:10 06/12/19 04:10 Labs: Abnormal Lab Results - Last 24 Hours (Table) 06/11/19 06/11/19 06/12/19 Range/Units 17:19 23:57 04:10 WBC 50.6 H* (3.8-10.6) k/uL Hgb 10.3 L (11.4-16.0) gm/dL MCV 77.9 L (80.0-100.0) fL MCH 23.1 L (25.0-35.0) pg MCHC 29.6 L (31.0-37.0) g/dL RDW 20.2 H (11.5-15.5) % Plt Count 681 H (150-450) k/uL D-Dimer (<0.60) mg/L FEU ABG pH (7.35-7.45) ABG pCO2 (35-45) mmHg ABG pO2 (83-108) mmHg ABG O2 Saturation (94-97) % Sodium (137-145) mmol/L Carbon Dioxide (22-30) mmol/L BUN (7-17) mg/dL Creatinine (0.52-1.04) mg/dL Glucose (74-99) mg/dL POC Glucose (mg/dL) 150 H 124 H (75-99) mg/dL Calcium (8.4-10.2) mg/dL ALT (4-34) U/L Alkaline Phosphatase (38-126) U/L Lactate Dehydrogenase (313-618) U/L Creatine Kinase (30-135) U/L C-Reactive Protein (<10.0) mg/L Total Protein (6.3-8.2) g/dL Albumin (3.5-5.0) g/dL 06/12/19 06/12/19 06/12/19 Range/Units 04:10 04:10 05:32 WBC (3.8-10.6) k/uL Hgb (11.4-16.0) gm/dL MCV (80.0-100.0) fL MCH (25.0-35.0) pg MCHC (31.0-37.0) g/dL RDW (11.5-15.5) % Plt Count (150-450) k/uL D-Dimer 1.18 H (<0.60) mg/L FEU ABG pH 7.21 L (7.35-7.45) ABG pCO2 53 H (35-45) mmHg ABG pO2 77 L (83-108) mmHg ABG O2 Saturation 93.2 L (94-97) % Sodium 133 L (137-145) mmol/L Carbon Dioxide 20 L (22-30) mmol/L BUN 35 H (7-17) mg/dL Creatinine 1.50 H (0.52-1.04) mg/dL Glucose 159 H (74-99) mg/dL POC Glucose (mg/dL) (75-99) mg/dL Calcium 7.7 L (8.4-10.2) mg/dL ALT 95 H (4-34) U/L Alkaline Phosphatase 188 H (38-126) U/L Lactate Dehydrogenase 1377 H (313-618) U/L Creatine Kinase <20 L (30-135) U/L C-Reactive Protein 63.2 H (<10.0) mg/L Total Protein 4.8 L (6.3-8.2) g/dL Albumin 2.4 L (3.5-5.0) g/dL 06/12/19 06/12/19 Range/Units 06:01 11:27 WBC (3.8-10.6) k/uL Hgb (11.4-16.0) gm/dL MCV (80.0-100.0) fL MCH (25.0-35.0) pg MCHC (31.0-37.0) g/dL RDW (11.5-15.5) % Plt Count (150-450) k/uL D-Dimer (<0.60) mg/L FEU ABG pH (7.35-7.45) ABG pCO2 (35-45) mmHg ABG pO2 (83-108) mmHg ABG O2 Saturation (94-97) % Sodium (137-145) mmol/L Carbon Dioxide (22-30) mmol/L BUN (7-17) mg/dL Creatinine (0.52-1.04) mg/dL Glucose (74-99) mg/dL POC Glucose (mg/dL) 158 H 176 H (75-99) mg/dL Calcium (8.4-10.2) mg/dL ALT (4-34) U/L Alkaline Phosphatase (38-126) U/L Lactate Dehydrogenase (313-618) U/L Creatine Kinase (30-135) U/L C-Reactive Protein (<10.0) mg/L Total Protein (6.3-8.2) g/dL Albumin (3.5-5.0) g/dL Microbiology - Last 24 Hours (Table) 06/10/19 05:40 Blood Culture - Preliminary Blood No Growth after 48 hours 06/09/19 18:00 Urine Culture - Final Urine,Voided Bernadette albicans 06/08/19 Unknown Gram Stain - Final Sputum Sputum Culture - Final Methicillin resist S. aureus Bernadette albicans Assessment and Plan (1) Pneumonia due to COVID-19 virus Narrative/Plan: Patient currently receiving cefepime, IV vancomycin Plaquenil, steroids Current Visit: Yes Status: Acute Code(s): U07.1 - COVID-19; J12.89 - OTHER VIRAL PNEUMONIA SNOMED Code(s): 792598165 (2) Renal failure, acute Narrative/Plan: Patient had her initial dialysis on June 10 with temporary dialysis catheter continue per nephrology Current Visit: Yes Status: Acute Code(s): N17.9 - ACUTE KIDNEY FAILURE, UNSPECIFIED SNOMED Code(s): 57534794 (3) Septic shock due to methicillin resistant Staphylococcus aureus Narrative/Plan: Continue current treatment, critical care and infectious disease following appreciated their input. Patient is on cefepime and vancomycin also started on flu, resolved secondary to presence of Bernadette in the sputum Current Visit: Yes Status: Acute Code(s): A41.02 - SEPSIS DUE TO METHICILLIN RESISTANT STAPHYLOCOCCUS AUREUS; R65.21 - SEVERE SEPSIS WITH SEPTIC SHOCK SNOMED Code(s): 59158264 (4) NSTEMI (non-ST elevated myocardial infarction) Narrative/Plan: Secondary to demand ischemia, Current Visit: Yes Status: Acute Code(s): I21.4 - NON-ST ELEVATION (NSTEMI) MYOCARDIAL INFARCTION SNOMED Code(s): 61922101 (5) Atrial fibrillation Narrative/Plan: Secondary to sepsis on Cardizem drip Current Visit: Yes Status: Acute Code(s): I48.91 - UNSPECIFIED ATRIAL FIBRILLATION SNOMED Code(s): 18709117 Plan: Disposition: Continue as above patient continues to be critically ill and her prognosis remains poor she has a DO NOT RESUSCITATE
[2019-06-12 14:28] LABS: Ferritin 2671.6 ng/mL (10.0-291.0)
[2019-06-12 17:15] LABS: Glucose,Whole Blood 156 mg/dL (75-99)
[2019-06-12] MEDS: NOREPINEPHRINE 8 MG in SODIUM CHLORIDE 0.9% 250 ML IV SCH ×2 (19:11→22:13)
[2019-06-12] MEDS ORDERED: VANCOMYCIN 1,250 MG in SODIUM CHLORIDE 0.9% 250 ML IVPB ONE (21:00)
--- NOTE | 2019-06-12 22:11 | PN ---
PROGRESS NOTE DATE OF SERVICE: 06/12/2019 REASON FOR FOLLOWUP: Pneumonia. INTERVAL HISTORY: The patient is currently afebrile and hemodynamically stable, off pressor support. FiO2 is currently 40%. No significant purulent secretion through the ET or any diarrhea reported. PHYSICAL EXAMINATION: Blood pressure is 135/56, pulse of 108. Temperature 97.9. She is 96% on 40% FiO2. General description is an elderly female lying in bed in no distress. Respiratory system: Unlabored breathing. Clear to auscultation anteriorly. Heart S1, S2. Regular rate and rhythm. Abdomen soft, no tenderness. LABS: Hemoglobin is 10, white count 15.7, BUN of 35, creatinine is 1.50. DIAGNOSTIC IMPRESSION AND PLAN: 1. Patient with acute respiratory failure which is likely multifactorial in this patient who did have a component of acute COVID-19 pneumonia and secondary bacterial pneumonia with sputum showing MRSA. The patient is covered with vancomycin, Plaquenil, steroids and vent support to continue. 2. Patient with possible pharyngeal candidiasis. Diflucan has been added and see clinical response. 3. Continue supportive care. MMODL / IJN: [id number] / LOGAN
[2019-06-13 00:07] LABS: Glucose,Whole Blood 133 mg/dL (75-99)
[2019-06-13] MEDS: INSULIN ASPART (NovoLOG) 100 UNIT/ML VIAL SQ SCH ×4 (00:14→18:21)
[2019-06-13] MEDS: ARTIFICIAL TEARS-HYPROMELLOSE DROPS 15 ML BTL BOTH EYES SCH ×6 (00:15→20:18)
[2019-06-13 04:28] LABS: Anisocytosis Moderate; Basophils # (A) 0.1 k/uL (0-0.2); Basophils % (A) 0 %; Eosinophils # (A) 0.1 k/uL (0-0.7); Eosinophils % (A) 0 %; HCT 34.7 % (34.0-46.0); HGB 10.1 gm/dL (11.4-16.0); Hypochromasia Marked; Lymphocytes # (A) 1.1 k/uL (1.0-4.8); Lymphocytes % (A) 3 %; MCH 22.5 pg (25.0-35.0); MCHC 29.1 g/dL (31.0-37.0); MCV 77.3 fL (80.0-100.0); Microcytosis Moderate; Monocytes # (A) 0.6 k/uL (0-1.0); Monocytes % (A) 2 %; Neutrophils # (A) 32.9 k/uL (1.3-7.7); Neutrophils % (A) 94 %; Platelet Count 436 k/uL (150-450); Poikilocytosis Moderate; RBC 4.48 m/uL (3.80-5.40); RDW 20.7 % (11.5-15.5); WBC 34.9 k/uL (3.8-10.6)
[2019-06-13 04:42] LABS: C Reactive Protein 42.9 mg/L (<10.0); Potassium 4.6 mmol/L (3.5-5.1)
[2019-06-13 05:11] LABS: ABG Base Excess -7.7 mmol/L; ABG HCO3 20 mmol/L (21-25); ABG Oxygen Saturation 96.5 % (94-97); ABG PCO2 50 mmHg (35-45); ABG PH 7.22 (7.35-7.45); ABG PO2 97 mmHg (83-108); ABG TCO2 22 mmol/L (19-24); Allen Test Performed? Yes
[2019-06-13 05:48] LABS: Glucose,Whole Blood 171 mg/dL (75-99)
--- NOTE | 2019-06-13 06:51 | XR ---
EXAMINATION TYPE: XR chest 1V portable DATE OF EXAM: 06/13/2019 HISTORY: Tube placement. REFERENCE: Previous study dated 06/12/2019. FINDINGS: The patient's ET tube, NG tube and left internal jugular catheter remain in place, unchange d in appearance. Heart size upper limits of normal. There continues to be patchy bilateral airspace disease. Optimisti c leak, this may have improved on the right. There is more confluent left basilar airspace disease wh ich is also improved from previous. There is blunting of the left CP angle and I cannot exclude a sma ll left effusion. IMPRESSION: IMPROVED AERATION, BOTH LUNGS.
[2019-06-13] MEDS: ALBUTEROL HFA INHALER INHALATION PRN ×2 (07:39→11:11)
[2019-06-13] MEDS: PANTOPRAZOLE 40 MG/10 ML VIAL IVP SCH (08:01)
[2019-06-13] MEDS: CEFEPIME 2 GM in SODIUM CHLORIDE 0.9% 100 ML IVPB SCH (08:01)
[2019-06-13] MEDS: ENOXAPARIN 60 MG/0.6 ML SYRINGE SQ SCH (08:01)
[2019-06-13] MEDS: ASPIRIN 81 MG PO SCH (08:01)
[2019-06-13] MEDS: ASCORBIC ACID 500 MG TAB PO SCH ×2 (08:01→20:22)
[2019-06-13] MEDS: ZINC SULFATE 220 MG CAP PO SCH (08:01)
[2019-06-13] MEDS: CHLORHEXIDINE GLUCONATE 15 ML CUP MUCOUS MEM SCH ×2 (08:01→20:22)
[2019-06-13] MEDS: CALCIUM ACETATE 667 MG TAB PO SCH ×3 (08:01→18:21)
[2019-06-13] MEDS: HYDROXYCHLOROQUINE ORAL SUSP 200 MG/8 ML ORAL.SYRG PO SCH ×2 (08:01→20:22)
[2019-06-13] MEDS: methylPREDNISolone SOD SUCCI 40 MG/ML 1 ML VIAL IV SCH ×2 (08:01→20:22)
[2019-06-13] MEDS: PARoxetine 10 MG TAB PO SCH (08:01)
--- NOTE | 2019-06-13 08:16 | P.PN ---
Subjective Principal diagnosis: This is 78-year old female followed up with: Covid Pneumonia, acute kidney injury requiring dialysis started 06/11/2019 day before yesterday with a temporary dialysis catheter dated 06/11/2019 She was on small dose of levo fed yesterday and she had her second dialysis yesterday. This morning she is stable on 40% FiO2 and PEEP requirement is less her x-ray looks somewhat better with bilateral infiltrates. He remains in anuric. Other than Covid pneumonia she has E. coli UTI and sputum is growing Bernadette had MSSA Objective - Vital Signs Vital signs: Vital Signs Temp 98.4 F 06/13/19 04:00 Pulse 120 H 06/13/19 07:00 Resp 30 H 06/13/19 07:00 BP 107/51 06/12/19 13:28 Pulse Ox 96 06/13/19 07:00 Intake & Output 06/12/19 06/13/19 06/13/19 18:59 06:59 18:59 Intake Total 4491.252 5439.372 152 Output Total 1005 20 0 Balance 034.073 9943.372 152 Weight 84.5 kg Intake: IV 572 312 26 Cefepime 2 gm In Sodium 100 Chloride 0.9% 100 ml @ 200 mls/hr IVPB Q24HR [facility] Rx#:[id number] Fluconazole in NaCl,Iso- 100 Osm 100 mg In Saline 1 50ml.bag @ 50 mls/hr IVPB DAILY [facility] Rx#:[id number] Normal Saline Pressure 132 72 6 Bag Sodium Chloride 0.9% 1, 240 240 20 000 ml @ 20 mls/hr IV . Q24H [facility] Rx#:[id number] Intake, IV Titration 631.412 969.372 100 Amount Cisatracurium 200 mg In 183.65 Sodium Chloride 0.9% 100 ml @ 2 MCG/KG/MIN 8.872 mls/hr IV .[id number] [facility] Rx #:[id number] Diltiazem 125 mg In 134 Sodium Chloride 0.9% 100 ml @ Per Protocol IV .Q0M [facility] Rx#:[id number] Norepinephrine 8 mg In 258.000 105.992 Sodium Chloride 0.9% 250 ml @ 0.05 MCG/KG/MIN 7. 153 mls/hr IV .Q24H [facility] Rx#:[id number] Propofol 1,000 mg In 373.412 295.73 100 Empty Bag 1 bag @ Titrate IV .Q0M [facility] Rx#: [id number] Vancomycin 1,250 mg In 250 Sodium Chloride 0.9% 250 ml @ 125 mls/hr IVPB ONCE ONE Rx#:[id number] Tube Feeding 26 286 26 Other 90 Output: Urine 5 20 0 Hemodialysis 1000 Other: Voiding Method Indwelling Catheter Indwelling Catheter # Voids 1 # Bowel Movements 1 ABP, PAP, CO, CI - Last Documented Arterial Blood Pressure 122/55 Patient was not examined because of the Covid status According to nursing staff she has mild edema Lungs are significant for diminished breath sounds She remains intubated and sedated - Labs CBC & Chem 7: 06/13/19 04:10 06/13/19 04:10 Labs: Abnormal Lab Results - Last 24 Hours (Table) 06/09/19 06/12/19 06/12/19 Range/Units 14:15 04:10 11:27 WBC (3.8-10.6) k/uL Hgb (11.4-16.0) gm/dL MCV (80.0-100.0) fL MCH (25.0-35.0) pg MCHC (31.0-37.0) g/dL RDW (11.5-15.5) % Neutrophils # (1.3-7.7) k/uL ABG pH (7.35-7.45) ABG pCO2 (35-45) mmHg ABG HCO3 (21-25) mmol/L Sodium (137-145) mmol/L Carbon Dioxide (22-30) mmol/L BUN (7-17) mg/dL Creatinine (0.52-1.04) mg/dL Glucose (74-99) mg/dL POC Glucose (mg/dL) 176 H (75-99) mg/dL Calcium (8.4-10.2) mg/dL Ferritin 2671.6 H (10.0-291.0) ng/mL Lactate Dehydrogenase (313-618) U/L Creatine Kinase (30-135) U/L C-Reactive Protein (<10.0) mg/L Interleukin 6 56 H (<=5) pg/mL 06/12/19 06/13/19 06/13/19 Range/Units 17:14 00:04 04:10 WBC 34.9 H (3.8-10.6) k/uL Hgb 10.1 L (11.4-16.0) gm/dL MCV 77.3 L (80.0-100.0) fL MCH 22.5 L (25.0-35.0) pg MCHC 29.1 L (31.0-37.0) g/dL RDW 20.7 H (11.5-15.5) % Neutrophils # 32.9 H (1.3-7.7) k/uL ABG pH (7.35-7.45) ABG pCO2 (35-45) mmHg ABG HCO3 (21-25) mmol/L Sodium (137-145) mmol/L Carbon Dioxide (22-30) mmol/L BUN (7-17) mg/dL Creatinine (0.52-1.04) mg/dL Glucose (74-99) mg/dL POC Glucose (mg/dL) 156 H 133 H (75-99) mg/dL Calcium (8.4-10.2) mg/dL Ferritin (10.0-291.0) ng/mL Lactate Dehydrogenase (313-618) U/L Creatine Kinase (30-135) U/L C-Reactive Protein (<10.0) mg/L Interleukin 6 (<=5) pg/mL 06/13/19 06/13/19 06/13/19 Range/Units 04:10 05:08 05:46 WBC (3.8-10.6) k/uL Hgb (11.4-16.0) gm/dL MCV (80.0-100.0) fL MCH (25.0-35.0) pg MCHC (31.0-37.0) g/dL RDW (11.5-15.5) % Neutrophils # (1.3-7.7) k/uL ABG pH 7.22 L (7.35-7.45) ABG pCO2 50 H (35-45) mmHg ABG HCO3 20 L (21-25) mmol/L Sodium 132 L (137-145) mmol/L Carbon Dioxide 19 L (22-30) mmol/L BUN 41 H (7-17) mg/dL Creatinine 1.55 H (0.52-1.04) mg/dL Glucose 150 H (74-99) mg/dL POC Glucose (mg/dL) 171 H (75-99) mg/dL Calcium 8.0 L (8.4-10.2) mg/dL Ferritin (10.0-291.0) ng/mL Lactate Dehydrogenase 1025 H (313-618) U/L Creatine Kinase 26 L (30-135) U/L C-Reactive Protein 42.9 H (<10.0) mg/L Interleukin 6 (<=5) pg/mL Microbiology - Last 24 Hours (Table) 06/10/19 05:40 Blood Culture - Preliminary Blood No Growth after 72 hours Assessment and Plan Assessment: Impression 1. Dialysis dependent Acute kidney injury from sepsis secondary to Covid pneumonia, vent dependent respiratory failure, and started on dialysis on 417 and dialyze on 06/12/2019. Remains in anuric 2. Remains and anuric, 3. Bilateral Covid pneumonia 4. E. coli UTI 5. Respiratory acidosis with a pH of 7.2 and pCO2 of 50 6. Mild hyponatremia secondary to acute kidney injury 7. Mild non-gap acidosis with bicarb of 19 and a gap of 12, etiology is Acute kidney injury. 8. Blood pressure improved and is off of levofed . 9. Hyperphosphatemia on binders Recommendation 1. No indication for dialysis today. 2. Will dialyze her tomorrow for 3 hours and take off 2 L 3. Watch electrolytes and acid-base. 4. Continue nutritional support with NG tube feeding, currently on 30 mL water flushes every hour. If sodium continues to deteriorate and we will reduce this
[2019-06-13] MEDS: FLUCONAZOLE IN NACL,ISO-OSM 100 MG in SALINE 1 50ML.BAG IVPB SCH (08:48)
--- NOTE | 2019-06-13 10:39 | P.PN ---
Subjective Progress Note Date: 06/13/19 Principal diagnosis: Acute hypoxemic and hypercapnic respiratory failure secondary to acute covert 19 pneumonia. Septic shock related to MRSA pneumonia. The patient is seen today 06/13/2019 in follow-up in the intensive care unit. She remains intubated on mechanical ventilator. Current settings are assist control at a rate of 30, tidal volume 350, FiO2 40% and a PEEP of 15. Morning blood gases reveal a P O2 of 97, pCO2 50, pH 7.22. Chest x-ray is showing improved aeration in both lungs. She remains sedated on propofol at 70 mcg/kg/m. Nimbex at 2 mcg/kg/min. Norepinephrine at 8 mcg/m. She remains on Cardizem drip at 7.5 mg per hour. 0.9 normal sitting at 20 ML's per hour. Being nourished with Vital AF 26 ML's per hour which is goal. Urine culture was positive for E. coli. Sputum culture positive for Bernadette and to MRSA. Blood cultures reveal no growth. White count 34.9. Hemoglobin 10.1. Platelets 436. D-dimer 0.88. Sodium 132. Potassium 4.6. Creatinine 1.55. LDH 1025. C- reactive protein 42.9. Trending down. Objective - Vital Signs Vital signs: Vital Signs Temp 97.2 F L 06/13/19 08:00 Pulse 110 H 06/13/19 10:00 Resp 30 H 06/13/19 10:00 BP 107/51 06/12/19 13:28 Pulse Ox 95 06/13/19 10:00 Intake & Output 06/12/19 06/13/19 06/13/19 18:59 06:59 18:59 Intake Total 8033.388 0924.372 490.121 Output Total 1005 20 0 Balance 266.533 6238.372 490.121 Weight 84.5 kg Intake: IV 572 312 254 Cefepime 2 gm In Sodium 100 100 Chloride 0.9% 100 ml @ 200 mls/hr IVPB Q24HR [facility] Rx#:[id number] Fluconazole in NaCl,Iso- 100 50 Osm 100 mg In Saline 1 50ml.bag @ 50 mls/hr IVPB DAILY [facility] Rx#:[id number] Normal Saline Pressure 132 72 24 Bag Sodium Chloride 0.9% 1, 240 240 80 000 ml @ 20 mls/hr IV . Q24H [facility] Rx#:[id number] Intake, IV Titration 631.412 969.372 184.121 Amount Cisatracurium 200 mg In 183.65 Sodium Chloride 0.9% 100 ml @ 2 MCG/KG/MIN 8.872 mls/hr IV .[id number] [facility] Rx #:[id number] Diltiazem 125 mg In 134 Sodium Chloride 0.9% 100 ml @ Per Protocol IV .Q0M [facility] Rx#:[id number] Norepinephrine 8 mg In 258.000 105.992 84.121 Sodium Chloride 0.9% 250 ml @ 0.05 MCG/KG/MIN 7. 153 mls/hr IV .Q24H [facility] Rx#:[id number] Propofol 1,000 mg In 373.412 295.73 100 Empty Bag 1 bag @ Titrate IV .Q0M [facility] Rx#: [id number] Vancomycin 1,250 mg In 250 Sodium Chloride 0.9% 250 ml @ 125 mls/hr IVPB ONCE ONE Rx#:[id number] Tube Feeding 26 286 52 Other 90 Output: Urine 5 20 0 Hemodialysis 1000 Other: Voiding Method Indwelling Catheter Indwelling Catheter Indwelling Catheter # Voids 1 # Bowel Movements 1 ABP, PAP, CO, CI - Last Documented Arterial Blood Pressure 120/54 - Exam GENERAL EXAM: 78-year-old female patient, intubated, sedated on mechanical ventilator. On 40% FiO2 via the mechanical ventilator HEAD: Normocephalic/atraumatic. EYES: Normal reaction of pupils, equal size. Conjunctiva pink, sclera white. NOSE: Clear with pink turbinates. THROAT: No erythema or exudates. NECK: No masses, no JVD, no thyroid enlargement, no adenopathy. CHEST: No chest wall deformity. Symmetrical expansion. LUNGS: Equal air entry with crackles in the bilateral posterior bases. CVS: Regular rate and rhythm, normal S1 and S2, no gallops, no murmurs, no rubs ABDOMEN: Soft, nontender. No hepatosplenomegaly, normal bowel sounds, no guarding or rigidity. EXTREMITIES: No clubbing, no edema, no cyanosis, 2+ pulses and upper and lower extremities. MUSCULOSKELETAL: Muscle strength and tone normal. SPINE: No scoliosis or deformity SKIN: No rashes CENTRAL NERVOUS SYSTEM: Intubated, sedated. No focal deficits, tone is normal in all 4 extremities. - Labs CBC & Chem 7: 06/13/19 04:10 06/13/19 04:10 Labs: Abnormal Lab Results - Last 24 Hours (Table) 06/09/19 06/12/19 06/12/19 Range/Units 14:15 04:10 11:27 WBC (3.8-10.6) k/uL Hgb (11.4-16.0) gm/dL MCV (80.0-100.0) fL MCH (25.0-35.0) pg MCHC (31.0-37.0) g/dL RDW (11.5-15.5) % Neutrophils # (1.3-7.7) k/uL D-Dimer (<0.60) mg/L FEU ABG pH (7.35-7.45) ABG pCO2 (35-45) mmHg ABG HCO3 (21-25) mmol/L Sodium (137-145) mmol/L Carbon Dioxide (22-30) mmol/L BUN (7-17) mg/dL Creatinine (0.52-1.04) mg/dL Glucose (74-99) mg/dL POC Glucose (mg/dL) 176 H (75-99) mg/dL Calcium (8.4-10.2) mg/dL Ferritin 2671.6 H (10.0-291.0) ng/mL Lactate Dehydrogenase (313-618) U/L Creatine Kinase (30-135) U/L C-Reactive Protein (<10.0) mg/L Interleukin 6 56 H (<=5) pg/mL 06/12/19 06/13/19 06/13/19 Range/Units 17:14 00:04 04:10 WBC 34.9 H (3.8-10.6) k/uL Hgb 10.1 L (11.4-16.0) gm/dL MCV 77.3 L (80.0-100.0) fL MCH 22.5 L (25.0-35.0) pg MCHC 29.1 L (31.0-37.0) g/dL RDW 20.7 H (11.5-15.5) % Neutrophils # 32.9 H (1.3-7.7) k/uL D-Dimer (<0.60) mg/L FEU ABG pH (7.35-7.45) ABG pCO2 (35-45) mmHg ABG HCO3 (21-25) mmol/L Sodium (137-145) mmol/L Carbon Dioxide (22-30) mmol/L BUN (7-17) mg/dL Creatinine (0.52-1.04) mg/dL Glucose (74-99) mg/dL POC Glucose (mg/dL) 156 H 133 H (75-99) mg/dL Calcium (8.4-10.2) mg/dL Ferritin (10.0-291.0) ng/mL Lactate Dehydrogenase (313-618) U/L Creatine Kinase (30-135) U/L C-Reactive Protein (<10.0) mg/L Interleukin 6 (<=5) pg/mL 06/13/19 06/13/19 06/13/19 Range/Units 04:10 04:10 05:08 WBC (3.8-10.6) k/uL Hgb (11.4-16.0) gm/dL MCV (80.0-100.0) fL MCH (25.0-35.0) pg MCHC (31.0-37.0) g/dL RDW (11.5-15.5) % Neutrophils # (1.3-7.7) k/uL D-Dimer 0.88 H (<0.60) mg/L FEU ABG pH 7.22 L (7.35-7.45) ABG pCO2 50 H (35-45) mmHg ABG HCO3 20 L (21-25) mmol/L Sodium 132 L (137-145) mmol/L Carbon Dioxide 19 L (22-30) mmol/L BUN 41 H (7-17) mg/dL Creatinine 1.55 H (0.52-1.04) mg/dL Glucose 150 H (74-99) mg/dL POC Glucose (mg/dL) (75-99) mg/dL Calcium 8.0 L (8.4-10.2) mg/dL Ferritin (10.0-291.0) ng/mL Lactate Dehydrogenase 1025 H (313-618) U/L Creatine Kinase 26 L (30-135) U/L C-Reactive Protein 42.9 H (<10.0) mg/L Interleukin 6 (<=5) pg/mL 06/13/19 Range/Units 05:46 WBC (3.8-10.6) k/uL Hgb (11.4-16.0) gm/dL MCV (80.0-100.0) fL MCH (25.0-35.0) pg MCHC (31.0-37.0) g/dL RDW (11.5-15.5) % Neutrophils # (1.3-7.7) k/uL D-Dimer (<0.60) mg/L FEU ABG pH (7.35-7.45) ABG pCO2 (35-45) mmHg ABG HCO3 (21-25) mmol/L Sodium (137-145) mmol/L Carbon Dioxide (22-30) mmol/L BUN (7-17) mg/dL Creatinine (0.52-1.04) mg/dL Glucose (74-99) mg/dL POC Glucose (mg/dL) 171 H (75-99) mg/dL Calcium (8.4-10.2) mg/dL Ferritin (10.0-291.0) ng/mL Lactate Dehydrogenase (313-618) U/L Creatine Kinase (30-135) U/L C-Reactive Protein (<10.0) mg/L Interleukin 6 (<=5) pg/mL Microbiology - Last 24 Hours (Table) 06/10/19 05:40 Blood Culture - Preliminary Blood No Growth after 72 hours Assessment and Plan Assessment: 1 Acute hypoxemic and hypercapnic respiratory failure related to acute COVID 19 related pneumonia, chest x-ray on 05/31/2019 showed progressive worsening of the multifocal interstitial and alveolar opacities most pronounced in the right midlung. Patient required intubation and placement on mechanical ventilator on 05/31/2019, she was successfully weaned and extubated on 06/04/2019. However today on 06/09/2019 patient has developed a worsening hypoxemia, requiring transfer back to the intensive care unit and reintubation and placement on mechanical ventilator 2 Septic shock related to MRSA pneumonia. Current coverage includes cefepime, and vancomycin. Patient required re-intubation and placement on mechanical ventilation on 06/09/2019. 3 Non-anion gap metabolic acidosis related to acute kidney injury secondary to sepsis 4 Acute kidney injury, worsened on today's labs, and patient is anuric, receiving hemodialysis 5 A. fib with RVR related to sepsis, the rate is better controlled on Cardizem drip 6 Acute leukocytosis, bandemia, likely related to acute sepsis 7 Elevated LDH, ferritin related to COVID 19 infection 8 Elevated troponins 9 Acute urinary tract infection, related to E. coli 10 History of hypertension 11 Depression 12 Recent history of large soft tissue mass involving the posterior right hip status post biopsy, results are pending 13 Previous history of chronic tobacco dependence Plan: The patient was seen and evaluated by Dr. Hanson Chest x-ray, ABGs and labs all reviewed PEEP is decreased to 10 Daily interruption of sedation Titrate down the FiO2 as tolerated Continued on vancomycin, cefepime Continued on Lovenox Continue Plaquenil through 8 doses IL- 6 still pending Overall prognosis remains poor The patient is a DO NOT RESUSCITATE/DO NOT INTUBATE CODE STATUS We'll continue to follow and make further recommendations based on her clinical status. Critical care time 38 minutes I, the cosigning physician, performed a history & physical examination of the patient. Lungs sounds crackles in the bilateral posterior bases. Maintaining good O2 saturations in the 90s on 40% FiO2 on mechanical ventilator. I discussed the assessment and plan of care with my nurse practitioner, Zohra Casarez. I attest to the above note as dictated by her.
[2019-06-13 11:44] LABS: Glucose,Whole Blood 150 mg/dL (75-99)
--- NOTE | 2019-06-13 13:30 | P.PN ---
Subjective Progress Note Date: 06/13/19 Principal diagnosis: COVID pneumonia Patient is a 78 her female who was initially admitted for elevated troponin of 0.412 with associated T-wave inversions. Patient was started on aspirin, heparin drip was admitted for non-ST elevation AK. Patient was admitted on May 25 and was found to have a Covid- 19 infection and urinary tract infection. Patient elevated troponin was determined to be secondary to demand ischemia culture showed E. coli sensitive to Rocephin. Patient was initially Do NOot Resuscitate howevere when she was declining her family changed her to full code. Patient required intubation for respiratory failure she was subsequently extubated on June 03 transferred to general medical floor. Patient was subsequently declined and was transferred back to the intensive care unit intubated on June 09. The patient had inflammatory markers have improved h owever she developed anuric renal failure and dialysis was initiated on June 10. Objective - Vital Signs Vital signs: Vital Signs Temp 97.0 F L 06/13/19 12:00 Pulse 104 H 06/13/19 12:00 Resp 30 H 06/13/19 12:00 BP 107/51 06/12/19 13:28 Pulse Ox 94 L 06/13/19 12:00 Intake & Output 06/12/19 06/13/19 06/13/19 18:59 06:59 18:59 Intake Total 9338.110 6383.372 659.476 Output Total 1005 20 0 Balance 645.456 7551.372 659.476 Weight 84.5 kg Intake: IV 572 312 306 Cefepime 2 gm In Sodium 100 100 Chloride 0.9% 100 ml @ 200 mls/hr IVPB Q24HR [facility] Rx#:[id number] Fluconazole in NaCl,Iso- 100 50 Osm 100 mg In Saline 1 50ml.bag @ 50 mls/hr IVPB DAILY [facility] Rx#:[id number] Normal Saline Pressure 132 72 36 Bag Sodium Chloride 0.9% 1, 240 240 120 000 ml @ 20 mls/hr IV . Q24H [facility] Rx#:[id number] Intake, IV Titration 631.412 969.372 301.476 Amount Cisatracurium 200 mg In 183.65 Sodium Chloride 0.9% 100 ml @ 2 MCG/KG/MIN 8.872 mls/hr IV .[id number] [facility] Rx #:[id number] Diltiazem 125 mg In 134 Sodium Chloride 0.9% 100 ml @ Per Protocol IV .Q0M [facility] Rx#:[id number] Norepinephrine 8 mg In 258.000 105.992 103.984 Sodium Chloride 0.9% 250 ml @ 0.05 MCG/KG/MIN 7. 153 mls/hr IV .Q24H [facility] Rx#:[id number] Propofol 1,000 mg In 373.412 295.73 197.492 Empty Bag 1 bag @ Titrate IV .Q0M [facility] Rx#: [id number] Vancomycin 1,250 mg In 250 Sodium Chloride 0.9% 250 ml @ 125 mls/hr IVPB ONCE ONE Rx#:[id number] Tube Feeding 26 286 52 Other 90 Output: Urine 5 20 0 Hemodialysis 1000 Other: Voiding Method Indwelling Catheter Indwelling Catheter Indwelling Catheter # Voids 1 # Bowel Movements 1 ABP, PAP, CO, CI - Last Documented Arterial Blood Pressure 106/48 - Constitutional Constitutional Comment(s): chronically ill appearing, sedated - Respiratory Respiratory: bilateral: diminished - Cardiovascular Rhythm: regular - Gastrointestinal General gastrointestinal: Present: decreased bowel sounds - Psychiatric Psychiatric Comment(s): limited - Labs CBC & Chem 7: 06/13/19 04:10 06/13/19 04:10 Labs: Abnormal Lab Results - Last 24 Hours (Table) 06/09/19 06/12/19 06/12/19 Range/Units 14:15 04:10 17:14 WBC (3.8-10.6) k/uL Hgb (11.4-16.0) gm/dL MCV (80.0-100.0) fL MCH (25.0-35.0) pg MCHC (31.0-37.0) g/dL RDW (11.5-15.5) % Neutrophils # (1.3-7.7) k/uL D-Dimer (<0.60) mg/L FEU ABG pH (7.35-7.45) ABG pCO2 (35-45) mmHg ABG HCO3 (21-25) mmol/L Sodium (137-145) mmol/L Carbon Dioxide (22-30) mmol/L BUN (7-17) mg/dL Creatinine (0.52-1.04) mg/dL Glucose (74-99) mg/dL POC Glucose (mg/dL) 156 H (75-99) mg/dL Calcium (8.4-10.2) mg/dL Ferritin 2671.6 H (10.0-291.0) ng/mL Lactate Dehydrogenase (313-618) U/L Creatine Kinase (30-135) U/L C-Reactive Protein (<10.0) mg/L Interleukin 6 56 H (<=5) pg/mL 06/13/19 06/13/19 06/13/19 Range/Units 00:04 04:10 04:10 WBC 34.9 H (3.8-10.6) k/uL Hgb 10.1 L (11.4-16.0) gm/dL MCV 77.3 L (80.0-100.0) fL MCH 22.5 L (25.0-35.0) pg MCHC 29.1 L (31.0-37.0) g/dL RDW 20.7 H (11.5-15.5) % Neutrophils # 32.9 H (1.3-7.7) k/uL D-Dimer (<0.60) mg/L FEU ABG pH (7.35-7.45) ABG pCO2 (35-45) mmHg ABG HCO3 (21-25) mmol/L Sodium 132 L (137-145) mmol/L Carbon Dioxide 19 L (22-30) mmol/L BUN 41 H (7-17) mg/dL Creatinine 1.55 H (0.52-1.04) mg/dL Glucose 150 H (74-99) mg/dL POC Glucose (mg/dL) 133 H (75-99) mg/dL Calcium 8.0 L (8.4-10.2) mg/dL Ferritin (10.0-291.0) ng/mL Lactate Dehydrogenase 1025 H (313-618) U/L Creatine Kinase 26 L (30-135) U/L C-Reactive Protein 42.9 H (<10.0) mg/L Interleukin 6 (<=5) pg/mL 06/13/19 06/13/19 06/13/19 Range/Units 04:10 05:08 05:46 WBC (3.8-10.6) k/uL Hgb (11.4-16.0) gm/dL MCV (80.0-100.0) fL MCH (25.0-35.0) pg MCHC (31.0-37.0) g/dL RDW (11.5-15.5) % Neutrophils # (1.3-7.7) k/uL D-Dimer 0.88 H (<0.60) mg/L FEU ABG pH 7.22 L (7.35-7.45) ABG pCO2 50 H (35-45) mmHg ABG HCO3 20 L (21-25) mmol/L Sodium (137-145) mmol/L Carbon Dioxide (22-30) mmol/L BUN (7-17) mg/dL Creatinine (0.52-1.04) mg/dL Glucose (74-99) mg/dL POC Glucose (mg/dL) 171 H (75-99) mg/dL Calcium (8.4-10.2) mg/dL Ferritin (10.0-291.0) ng/mL Lactate Dehydrogenase (313-618) U/L Creatine Kinase (30-135) U/L C-Reactive Protein (<10.0) mg/L Interleukin 6 (<=5) pg/mL 06/13/19 Range/Units 11:42 WBC (3.8-10.6) k/uL Hgb (11.4-16.0) gm/dL MCV (80.0-100.0) fL MCH (25.0-35.0) pg MCHC (31.0-37.0) g/dL RDW (11.5-15.5) % Neutrophils # (1.3-7.7) k/uL D-Dimer (<0.60) mg/L FEU ABG pH (7.35-7.45) ABG pCO2 (35-45) mmHg ABG HCO3 (21-25) mmol/L Sodium (137-145) mmol/L Carbon Dioxide (22-30) mmol/L BUN (7-17) mg/dL Creatinine (0.52-1.04) mg/dL Glucose (74-99) mg/dL POC Glucose (mg/dL) 150 H (75-99) mg/dL Calcium (8.4-10.2) mg/dL Ferritin (10.0-291.0) ng/mL Lactate Dehydrogenase (313-618) U/L Creatine Kinase (30-135) U/L C-Reactive Protein (<10.0) mg/L Interleukin 6 (<=5) pg/mL Microbiology - Last 24 Hours (Table) 06/10/19 05:40 Blood Culture - Preliminary Blood No Growth after 72 hours Assessment and Plan (1) Pneumonia due to COVID-19 virus Narrative/Plan: Patient currently receiving cefepime, Plaquenil, dose #6 of 8, IV steroids, zinc Current Visit: Yes Status: Acute Code(s): U07.1 - COVID-19; J12.89 - OTHER VIRAL PNEUMONIA SNOMED Code(s): 327445468 (2) Renal failure, acute Narrative/Plan: Patient with anuric renal failure, status post dialysis on June 10 and . Plan for dialysis tomorrow. Current Visit: Yes Status: Acute Code(s): N17.9 - ACUTE KIDNEY FAILURE, UNSPECIFIED SNOMED Code(s): 54062932 (3) Septic shock due to methicillin resistant Staphylococcus aureus Narrative/Plan: Appreciate the critical care and infectious disease input. Patient is currently on Levophed, cefepime and vancomycin for MRSA sepsis. Also Diflucan for presence of Bernadette in the sputum Current Visit: Yes Status: Acute Code(s): A41.02 - SEPSIS DUE TO METHICILLIN RESISTANT STAPHYLOCOCCUS AUREUS; R65.21 - SEVERE SEPSIS WITH SEPTIC SHOCK SNOMED Code(s): 20647151 (4) NSTEMI (non-ST elevated myocardial infarction) Narrative/Plan: Secondary to demand ischemia present on admission Current Visit: Yes Status: Acute Code(s): I21.4 - NON-ST ELEVATION (NSTEMI) MYOCARDIAL INFARCTION SNOMED Code(s): 54371069 (5) Atrial fibrillation Narrative/Plan: Secondary to septic shock on a Cardizem drip Current Visit: Yes Status: Acute Code(s): I48.91 - UNSPECIFIED ATRIAL FIBRILLATION SNOMED Code(s): 84187304 Plan: Patient is currently a DO NOT RESUSCITATE and her prognosis remains poor
[2019-06-13] MEDS: DILTIAZEM 125 MG in SODIUM CHLORIDE 0.9% 100 ML IV SCH (14:06)
[2019-06-13] MEDS: NOREPINEPHRINE 8 MG in SODIUM CHLORIDE 0.9% 250 ML IV SCH (15:57)
[2019-06-13] MEDS: CISATRACURIUM 200 MG in SODIUM CHLORIDE 0.9% 100 ML IV SCH (18:03)
[2019-06-13 18:07] LABS: Glucose,Whole Blood 162 mg/dL (75-99)
[2019-06-13 23:53] LABS: Glucose,Whole Blood 146 mg/dL (75-99)
[2019-06-14] MEDS: ARTIFICIAL TEARS-HYPROMELLOSE DROPS 15 ML BTL BOTH EYES SCH ×5 (00:09→17:11)
[2019-06-14] MEDS: INSULIN ASPART (NovoLOG) 100 UNIT/ML VIAL SQ SCH ×5 (00:09→23:59)
--- NOTE | 2019-06-14 00:28 | PN ---
PROGRESS NOTE DATE OF SERVICE: 06/13/2019 REASON FOR FOLLOWUP: Pneumonia. INTERVAL HISTORY: The patient is currently afebrile. The patient is off pressor support. FiO2 is currently 40%. No significant purulent secretion through ET or any diarrhea reported. PHYSICAL EXAMINATION: Blood pressure 107/45 with a pulse of 105, temperature of 98. She is 95% on 40% FiO2. General description is an elderly female lying in bed in no distress. RESPIRATORY SYSTEM: Unlabored breathing, decreased breath sounds in the base, no wheeze. HEART: S1, S2. Regular rate and rhythm. ABDOMEN: Soft, no tenderness. LABS: Hemoglobin is 10.1, white count 34.9, BUN of 41, creatinine 1.55. DIAGNOSTIC IMPRESSION AND PLAN: 1. Patient with acute respiratory failure which is likely multifactorial. The patient did have a component of pneumonia, sputum has been methicillin-resistant Staphylococcus aureus. The patient is covered with vancomycin to continue while watching the kidney function closely with no gram-negative. Cefepime will be discontinued. 2. The patient with Bernadette albicans urinary tract infection. The patient is currently covered with Diflucan. White count showing a downward trend and continue supportive care. MMODL / IJN: [id number] / [email or web address]
[2019-06-14] MEDS: DILTIAZEM 125 MG in SODIUM CHLORIDE 0.9% 100 ML IV SCH ×2 (03:50→18:36)
[2019-06-14 04:50] LABS: Anisocytosis Moderate; Basophils # (A) 0.1 k/uL (0-0.2); Basophils % (A) 0 %; Eosinophils # (A) 0.1 k/uL (0-0.7); Eosinophils % (A) 0 %; HCT 30.9 % (34.0-46.0); HGB 9.1 gm/dL (11.4-16.0); Hypochromasia Marked; Lymphocytes # (A) 0.8 k/uL (1.0-4.8); Lymphocytes % (A) 3 %; MCH 22.7 pg (25.0-35.0); MCHC 29.4 g/dL (31.0-37.0); MCV 77.2 fL (80.0-100.0); Mean Platelet Volume 10.1; Microcytosis Moderate; Monocytes # (A) 0.4 k/uL (0-1.0); Monocytes % (A) 2 %; Neutrophils # (A) 22.8 k/uL (1.3-7.7); Neutrophils % (A) 94 %; Platelet Count 361 k/uL (150-450); Poikilocytosis Moderate; RDW 20.8 % (11.5-15.5); WBC 24.3 k/uL (3.8-10.6)
[2019-06-14 05:15] LABS: ABG Base Excess -10.7 mmol/L; ABG HCO3 17 mmol/L (21-25); ABG Oxygen Saturation 94.2 % (94-97); ABG PCO2 46 mmHg (35-45); ABG PO2 83 mmHg (83-108); ABG TCO2 19 mmol/L (19-24); Allen Test Performed? Yes
[2019-06-14 05:17] LABS: ABG PH 7.19 (7.35-7.45)
[2019-06-14 05:17] LABS: C Reactive Protein 26.9 mg/L (<10.0)
[2019-06-14 05:20] LABS: Vancomycin,Random 23.7 ug/mL
[2019-06-14 05:39] LABS: Glucose,Whole Blood 154 mg/dL (75-99)
[2019-06-14] MEDS: CALCIUM ACETATE 667 MG TAB PO SCH ×3 (06:39→17:11)
--- NOTE | 2019-06-14 07:33 | XR ---
EXAMINATION TYPE: XR chest 1V portable DATE OF EXAM: 06/14/2019 COMPARISON: 06/13/2019 HISTORY: SOB, Follow Up FINDINGS: Indwelling tubes and catheters are unchanged. No change in scattered interstitial and alveolar infiltrates. Increased opacification at the lung bas es. Stable appearance of the cardio-mediastinal structures at this time. Increasing basilar pleural effusions. IMPRESSION: 1. Increased opacity at the lung bases may reflect a combination of atelectasis infiltrate and/or ple ural effusion. Clinical correlation and follow up until resolution is recommended.
[2019-06-14] MEDS: methylPREDNISolone SOD SUCCI 40 MG/ML 1 ML VIAL IV SCH ×2 (07:57→20:21)
[2019-06-14] MEDS: CEFEPIME 2 GM in SODIUM CHLORIDE 0.9% 100 ML IVPB SCH (07:57)
[2019-06-14] MEDS: SODIUM BICARBONATE TAB 650 MG TAB PO SCH ×3 (07:58→20:21)
[2019-06-14] MEDS: ASCORBIC ACID 500 MG TAB PO SCH ×2 (07:58→20:21)
[2019-06-14] MEDS: ASPIRIN 81 MG PO SCH (07:58)
[2019-06-14] MEDS: PANTOPRAZOLE 40 MG/10 ML VIAL IVP SCH (07:58)
[2019-06-14] MEDS: CHLORHEXIDINE GLUCONATE 15 ML CUP MUCOUS MEM SCH ×2 (08:00→20:21)
[2019-06-14] MEDS: ZINC SULFATE 220 MG CAP PO SCH (08:00)
[2019-06-14] MEDS: PARoxetine 10 MG TAB PO SCH (08:00)
[2019-06-14] MEDS: ENOXAPARIN 60 MG/0.6 ML SYRINGE SQ SCH (08:01)
[2019-06-14] MEDS: HYDROXYCHLOROQUINE ORAL SUSP 200 MG/8 ML ORAL.SYRG PO SCH (08:03)
[2019-06-14] MEDS: FLUCONAZOLE IN NACL,ISO-OSM 100 MG in SALINE 1 50ML.BAG IVPB SCH (08:03)
[2019-06-14 08:43] LABS: Calcium 7.8 mg/dL (8.4-10.2); Potassium 4.8 mmol/L (3.5-5.1)
--- NOTE | 2019-06-14 10:05 | P.PN ---
Subjective Progress Note Date: 06/14/19 This is a 78-year-old female patient with respiratory failure secondary to Coumadin 19 related pneumonia. A short initially admitted on 05/26/2019 for a UTI and Covid pneumonia. Her initial urine cultures came back positive for E. coli. At the later stage, she was found to have a Covid 19 pneumonia with pulmonary complications. The patient remains in the intensive care unit intubated on a mechanical ventilator. Note that the patient was intubated on 05/31/2019. She was extubated on 06/04/2019. However on 06/09/2019 the patient worsening hypoxemia and she had to be reintubated and placed on mechanical ventilator. She also developed a septic shock related to an MRSA pneumonia. His sputum culture from 06/08/2019 was positive for MRSA. She has other ongoing issues for now including acute kidney injury and the patient remains anuric receiving hemodialysis. The patient also developed an acute non-STEMI with a troponin maxed at 0.4 started on a combination of aspirin and heparin treating an acute non-ST segment elevation myocardial infarction. The patient remains sedated and paralyzed. She is on propofol and Pneumovax. She remains on a mechanical ventilator with assist control mode with a rate of 30, tidal volume 350 and FiO2 40% with a PEEP of 15. She remains on broad-spectrum antibiotics and current antibiotic coverage includes IV cefepime and vancomycin. Diflucan was also added at the sputum was positive for Bernadette multiple occasions. She is also receiving hydroxychloroquine regarding the Covid 19 pneumonia. She is on IV Solu-Medrol 40 mg every 12 hours. She is still hypotensive requiring norepinephrine infusion for blood pressure support and he was being titrated according to the patient's BP response. Note that the patient was started on dialysis for acute kidney injury on 06/11/2019. She has a temporary dialysis catheter inserted. She 2 sessions of hemodialysis since yesterday. She is not producing any urine for now. Note that along with a septic shock, the patient developed severe leukocytosis. White cell count was high as 90.6. It has gradually improved over the past few days. On today's evaluation of 06/14/2019, the patient remains on propofol at 75 g and the patient was taken off the Nimbex. The patient remains on essentially the same ventilator settings which include a tidal volume of 350 with a PEEP of 10 and FiO2 of 40% with a tidal volume of 350 and the respiratory rate of 30. The morning blood gases showed a pH of 7.19 with a pCO2 of 46 and pO2 of 83. The patient seems to have compliant lungs and the patient was requesting higher volumes. For that reason, I increased the tidal volume of 03/30/1947. I do not to be down to 8. I started the patient was also riding the mechanical ventilator at the rate of 30 and I dropped a respiratory rate down to 22. Her chest x-ray was showing some improvement in the pneumonia. There is still feasible breast in the lung bases consistent with infiltration. The patient is still receiving enteral feeding for nutritional support. The patient as mentioned has Covid 19 infection and a bacterial pneumonia in the form of MRSA. We are somewhat inclined not to give Actemra. The interleukin level from few days ago was 56. The patient has developed an acute kidney injury. The patient is producing minimal amount of urine output and she is going to undergo dialysis today. The net fluid balance is +1.8 and 2.7 L over the past 24 hours. . Objective - Vital Signs Vital signs: Vital Signs Temp 96.1 F L 06/14/19 04:00 Pulse 92 06/14/19 06:00 Resp 30 H 06/14/19 06:00 BP 107/51 06/12/19 13:28 Pulse Ox 95 06/14/19 06:00 Intake & Output 06/13/19 06/13/19 06/14/19 06:59 18:59 06:59 Intake Total 0750.371 0534.205 1309.066 Output Total 20 0 0 Balance 3462.931 8377.205 1309.066 Weight 84.5 kg 86.9 kg Intake: IV 312 456 312 Cefepime 2 gm In Sodium 100 Chloride 0.9% 100 ml @ 200 mls/hr IVPB Q24HR [facility] Rx#:[id number] Fluconazole in NaCl,Iso- 50 Osm 100 mg In Saline 1 50ml.bag @ 50 mls/hr IVPB DAILY [facility] Rx#:[id number] Normal Saline Pressure 72 66 72 Bag Sodium Chloride 0.9% 1, 240 240 240 000 ml @ 20 mls/hr IV . Q24H [facility] Rx#:[id number] Intake, IV Titration 969.372 813.205 595.066 Amount Cisatracurium 200 mg In 183.65 175.813 Sodium Chloride 0.9% 100 ml @ 2 MCG/KG/MIN 8.872 mls/hr IV .[id number] [facility] Rx #:[id number] Diltiazem 125 mg In 134 119.125 103 Sodium Chloride 0.9% 100 ml @ Per Protocol IV .Q0M [facility] Rx#:[id number] Norepinephrine 8 mg In 105.992 135.029 110.590 Sodium Chloride 0.9% 250 ml @ 0.05 MCG/KG/MIN 7. 153 mls/hr IV .Q24H [facility] Rx#:[id number] Propofol 1,000 mg In 295.73 383.238 381.476 Empty Bag 1 bag @ Titrate IV .Q0M [facility] Rx#: [id number] Vancomycin 1,250 mg In 250 Sodium Chloride 0.9% 250 ml @ 125 mls/hr IVPB ONCE ONE Rx#:[id number] Tube Feeding 286 78 312 Other 90 90 Output: Urine 20 0 0 Other: Voiding Method Indwelling Catheter Indwelling Catheter Indwelling Catheter ABP, PAP, CO, CI - Last Documented Arterial Blood Pressure 160/57 - Exam GENERAL EXAM: 78-year-old female patient, intubated, sedated on mechanical ventilator. The patient is off paralytics for now. HEAD: Normocephalic/atraumatic. EYES: Normal reaction of pupils, equal size. Conjunctiva pink, sclera white. NOSE: Clear with pink turbinates. THROAT: No erythema or exudates. NECK: No masses, no JVD, no thyroid enlargement, no adenopathy. CHEST: No chest wall deformity. Symmetrical expansion. LUNGS: Equal air entry with crackles in the bilateral posterior bases. CVS: Regular rate and rhythm, normal S1 and S2, no gallops, no murmurs, no rubs ABDOMEN: Soft, nontender. No hepatosplenomegaly, normal bowel sounds, no guarding or rigidity. EXTREMITIES: No clubbing, no edema, no cyanosis, 2+ pulses and upper and lower extremities. The patient is dialysis catheter in the right groin area. MUSCULOSKELETAL: Muscle strength and tone normal. SPINE: No scoliosis or deformity SKIN: No rashes CENTRAL NERVOUS SYSTEM: Intubated, sedated. No focal deficits, tone is normal in all 4 extremities. - Labs CBC & Chem 7: 06/14/19 04:35 06/14/19 08:17 Labs: Abnormal Lab Results - Last 24 Hours (Table) 06/13/19 06/13/19 06/13/19 Range/Units 04:10 11:42 18:06 WBC (3.8-10.6) k/uL Hgb (11.4-16.0) gm/dL Hct (34.0-46.0) % MCV (80.0-100.0) fL MCH (25.0-35.0) pg MCHC (31.0-37.0) g/dL RDW (11.5-15.5) % Neutrophils # (1.3-7.7) k/uL Lymphocytes # (1.0-4.8) k/uL D-Dimer 0.88 H (<0.60) mg/L FEU ABG pH (7.35-7.45) ABG pCO2 (35-45) mmHg ABG HCO3 (21-25) mmol/L POC Glucose (mg/dL) 150 H 162 H (75-99) mg/dL Lactate Dehydrogenase (313-618) U/L C-Reactive Protein (<10.0) mg/L 06/13/19 06/14/19 06/14/19 Range/Units 23:51 04:35 04:35 WBC 24.3 H (3.8-10.6) k/uL Hgb 9.1 L (11.4-16.0) gm/dL Hct 30.9 L (34.0-46.0) % MCV 77.2 L (80.0-100.0) fL MCH 22.7 L (25.0-35.0) pg MCHC 29.4 L (31.0-37.0) g/dL RDW 20.8 H (11.5-15.5) % Neutrophils # 22.8 H (1.3-7.7) k/uL Lymphocytes # 0.8 L (1.0-4.8) k/uL D-Dimer (<0.60) mg/L FEU ABG pH (7.35-7.45) ABG pCO2 (35-45) mmHg ABG HCO3 (21-25) mmol/L POC Glucose (mg/dL) 146 H (75-99) mg/dL Lactate Dehydrogenase 678 H (313-618) U/L C-Reactive Protein 26.9 H (<10.0) mg/L 06/14/19 06/14/19 06/14/19 Range/Units 05:10 05:30 05:38 WBC (3.8-10.6) k/uL Hgb (11.4-16.0) gm/dL Hct (34.0-46.0) % MCV (80.0-100.0) fL MCH (25.0-35.0) pg MCHC (31.0-37.0) g/dL RDW (11.5-15.5) % Neutrophils # (1.3-7.7) k/uL Lymphocytes # (1.0-4.8) k/uL D-Dimer 0.98 H (<0.60) mg/L FEU ABG pH 7.19 L* (7.35-7.45) ABG pCO2 46 H (35-45) mmHg ABG HCO3 17 L (21-25) mmol/L POC Glucose (mg/dL) 154 H (75-99) mg/dL Lactate Dehydrogenase (313-618) U/L C-Reactive Protein (<10.0) mg/L Microbiology - Last 24 Hours (Table) 06/10/19 05:40 Blood Culture - Preliminary Blood No Growth after 72 hours Assessment and Plan Plan: 1 Acute hypoxemic and hypercapnic respiratory failure related to acute COVID 19 related pneumonia, chest x-ray on 05/31/2019 showed progressive worsening of the multifocal interstitial and alveolar opacities most pronounced in the right midlung. Patient required intubation and placement on mechanical ventilator on 05/31/2019, she was successfully weaned and extubated on 06/04/2019. However today on 06/09/2019 patient has developed a worsening hypoxemia, and she developed bilateral pneumonia with septic shock. Note that x-ray at that time showed extensive bilateral pulmonary infiltrates which has been progressively improving over the past few days. Nevertheless, the patient remains sedated and paralyzedand she is still requiring mechanical ventilation. She is on broad- spectrum antibiotics utilizing a combination of cefepime and vancomycin and Diflucan. She remains pressor dependent. Also, the patient developed acute kidney injury and currently she is dialysis dependent. On today's evaluation of 06/14/2019, the patient is still on a mechanical ventilator. The patient is off paralytics. The chest x-ray still showing beta pulmonary infiltrates. The patient is on broad-spectrum antibiotics and the necessity ventilator changes were done. The patient remains on IV Solu-Medrol. She does of fluid overload based on his underlying acute kidney injury the patient is going to need dialysis today. 2 Septic shock related to MRSA pneumonia. Current coverage includes cefepime, and vancomycin. Patient required re-intubation and placement on mechanical ventilation on 06/09/2019. 3 acute kidney injury secondary to sepsis and septic shock. the patient is not producing any urine output and she is dialysis dependent. The nephrology is on the case. She has a temporary dialysis catheter in the patient is requiring daily hemodialysis. 4 severe leukocytosis secondary to septic shock, improving, white cell count is on the decline 5 A. fib with RVR related to sepsis, the rate is better controlled on Cardizem drip 6 acute non-STEMI with elevation of troponins, remains on aspirin 81 mg 7 acute bilateral Covid 19 pneumonia with secondary elevation of the LDH, ferritin related to COVID 19 infectionmy treated with Plaquenil and zinc sulfate 8 hypertensive heart disease with a concentric LVH and an ejection fraction of 55-60% with secondary pulmonary hypertension with a PA pressure of 54 based on echocardiogram from early May 2019 9 Acute urinary tract infection, related to E. coli, This was diagnosed at time of admission and his been well treated 10 History of hypertension 11 Depression 12 Recent history of large soft tissue mass involving the posterior right hip status post biopsy, results are pending 13 Previous history of chronic tobacco dependence Plan Condition remains critical. Proceed with hemodialysis on a daily basis Monitor urine output Increase tidal volume to 450 and PEEP down to 8 and dropped a respiratory rate down to 22 Keep the patient on propofol for sedation Discontinue the back Continue Vital for enteral nutrition Repeat blood gases in few hours We'll consider a sedation holiday ventilator stage following dialysis We'll continue to follow. Condition is critical and the this evaluation was done and more than 30 minutes. Time with Patient: Greater than 30
[2019-06-14 10:10] LABS: ABG Base Excess -10.6 mmol/L; ABG HCO3 16 mmol/L (21-25); ABG Oxygen Saturation 96.8 % (94-97); ABG PCO2 32 mmHg (35-45); ABG PH 7.31 (7.35-7.45); ABG PO2 92 mmHg (83-108); ABG TCO2 17 mmol/L (19-24); Allen Test Performed? Yes
[2019-06-14] MEDS: ALBUTEROL HFA INHALER INHALATION PRN ×2 (11:05→15:23)
[2019-06-14 11:25] LABS: Ferritin 1225.7 ng/mL (10.0-291.0)
[2019-06-14 11:27] LABS: Ferritin 774.2 ng/mL (10.0-291.0)
[2019-06-14] MEDS ORDERED: PROMETHAZINE HCL 6.25 MG/5 ML CUP PO PRN (12:55)
[2019-06-14 13:37] LABS: Glucose,Whole Blood 135 mg/dL (75-99)
[2019-06-14] MEDS: CISATRACURIUM 200 MG in SODIUM CHLORIDE 0.9% 100 ML IV SCH (13:37)
--- NOTE | 2019-06-14 13:45 | P.PN ---
Subjective Progress Note Date: 06/14/19 Principal diagnosis: COVID pneumonia 78-year-old female with PMH of hypertension presented to the ED for epigastric discomfort and intractable nausea and vomiting. In the ED, she was noted to have an elevated troponin of 0.418 with T-wave inversions on EKG. She was started on aspirin and heparin drip and was admitted for non-ST elevation [place]. On 05/27/2019 she was noted to have spiked a fever thought to be possibly related to UTI or COVID 19 infection. Troponins were trended which went from 0.195-0.190. Her troponins were related to demand ischemia probably from sepsis . Influenza A and B was negative. Urine culture did come back positive for E. coli that was sensitive to Rocephin. COVID testing was subsequently positive. She was initiated on hydroxychloroquine, azithromycin, Rocephin, zinc and vitamin C. Infectious disease was consulted and discontinued her Rocephin and azithromycin. Echocardiogram was done which showed an EF of 55-60%. Her respiratory status worsened and to 05/31/2019. Her oxygen requirements increased from 8 L nasal cannula to 15 L high flow. It was noted that she was DO NOT RESUSCITATE and DO NOT INTUBATE. I had a long conversation with the patient and she was agreeable for intubation. Pulmonology was consulted and she was moved to the ICU for elective intubation. Sedation holiday was attempted on June 01 and June 02. She did have diarrhea for which she was given cholestyramine, C. diff was negative. Patient was extubated on 06/04/2019. She did go into atrial flutter on telemetry on 06/04/2019 for which she was started on therapeutic Lovenox by cardiology. Her Rocephin was started on 06/05/2019 for total of 3 doses to treat UTI. Her respiratory status continued to worsen after extubation patient was reintubated on 06/09/2019. On June 09 patient was noted to be in A. fib with rate of 103-120 bpm for which she was started on Cardizem drip. Patient required pressors to maintain BP and was started on norepinephrine IV. Vancomycin was added to her medication regimen of cefepime and hydroxychloroquine was restarted for worsening leukocytosis and inflammatory markers. Urine, blood and sputum cultures were collected. Sputum culture grew MRSA and Bernadette albicans. Her urine culture grew bernadette albicans and she was started on Fluconazole IV. Her renal function and urine production continued to worsen and nephrology was consulted. Dialysis catheter was placed on 06/11/2019 and dialysis was initiated. Patient was seen and examined. Currently receiving dialysis. Case was discussed with RN. Patient had 2 bowel movements overnight. PEEP has been decreased from 10-8 with plans of decreasing further to 6. Nimbex has been discontinued. CBC shows leukocytosis of 24.3 and hemoglobin of 9.1. ABG shows pH 7.31, pCO2 32, pO2 92, bicarbonate 16. CMP shows sodium of 1:30, BUN 59, creatinine 2.16, calcium 7.8. Ferritin, lactate dehydrogenase and CRP improving. Pro-calcitonin decreasing from 19-12.7. Objective - Vital Signs Vital signs: Vital Signs Temp 96.6 F L 06/14/19 12:00 Pulse 79 06/14/19 12:00 Resp 21 06/14/19 12:00 BP 119/54 06/14/19 09:00 Pulse Ox 97 06/14/19 12:00 Intake & Output 06/13/19 06/14/19 06/14/19 18:59 06:59 18:59 Intake Total 2338.330 1335.671 572.722 Output Total 0 0 0 Balance 0086.363 0503.671 572.722 Weight 86.9 kg 86.9 kg Intake: IV 456 312 286 Cefepime 2 gm In Sodium 100 100 Chloride 0.9% 100 ml @ 200 mls/hr IVPB Q24HR [facility] Rx#:[id number] Fluconazole in NaCl,Iso- 50 50 Osm 100 mg In Saline 1 50ml.bag @ 50 mls/hr IVPB DAILY [facility] Rx#:[id number] Normal Saline Pressure 66 72 36 Bag Sodium Chloride 0.9% 1, 240 240 100 000 ml @ 20 mls/hr IV . Q24H [facility] Rx#:[id number] Intake, IV Titration 813.205 718.671 126.722 Amount Cisatracurium 200 mg In 175.813 126.722 Sodium Chloride 0.9% 100 ml @ 2 MCG/KG/MIN 8.872 mls/hr IV .[id number] [facility] Rx #:[id number] Diltiazem 125 mg In 119.125 103 Sodium Chloride 0.9% 100 ml @ Per Protocol IV .Q0M [facility] Rx#:[id number] Norepinephrine 8 mg In 135.029 134.195 Sodium Chloride 0.9% 250 ml @ 0.05 MCG/KG/MIN 7. 153 mls/hr IV .Q24H [facility] Rx#:[id number] Propofol 1,000 mg In 383.238 481.476 Empty Bag 1 bag @ Titrate IV .Q0M [facility] Rx#: [id number] Tube Feeding 78 312 130 Other 90 30 Output: Urine 0 0 0 Other: Voiding Method Indwelling Catheter Indwelling Catheter # Bowel Movements 1 ABP, PAP, CO, CI - Last Documented Arterial Blood Pressure 134/42 - Exam General: [non toxic], [intubated], [appears at stated age] Derm: [warm], [dry] Head: [atraumatic], [normocephalic], [symmetric] Eyes: [EOMI], [no lid lag], [anicteric sclera] Mouth: [no lip lesion], [mucus membranes moist] Cardiovascular: [S1S2 reg], [tachycardia], [positive DP pulse bilateral], Lungs: [Coarse breath sounds bilaterally], [no rhonchi, no rales] , [no accessory muscle use] Abdominal: [soft], [ nontender to palpation], [no guarding], [no appreciable organomegaly] Ext: [no gross muscle atrophy], [no edema], [no contractures], [right groin dialysis catheter] Neuro: [Unable to determine] Psych: [Unable to determine] - Labs CBC & Chem 7: 06/14/19 04:35 06/14/19 08:17 Labs: Abnormal Lab Results - Last 24 Hours (Table) 06/13/19 06/13/19 06/13/19 Range/Units 04:10 04:10 18:06 WBC (3.8-10.6) k/uL Hgb (11.4-16.0) gm/dL Hct (34.0-46.0) % MCV (80.0-100.0) fL MCH (25.0-35.0) pg MCHC (31.0-37.0) g/dL RDW (11.5-15.5) % Neutrophils # (1.3-7.7) k/uL Lymphocytes # (1.0-4.8) k/uL D-Dimer (<0.60) mg/L FEU ABG pH (7.35-7.45) ABG pCO2 (35-45) mmHg ABG HCO3 (21-25) mmol/L ABG Total CO2 (19-24) mmol/L Sodium (137-145) mmol/L Carbon Dioxide (22-30) mmol/L BUN (7-17) mg/dL Creatinine (0.52-1.04) mg/dL Glucose (74-99) mg/dL POC Glucose (mg/dL) 162 H (75-99) mg/dL Calcium (8.4-10.2) mg/dL Ferritin 1225.7 H (10.0-291.0) ng/mL Lactate Dehydrogenase (313-618) U/L C-Reactive Protein (<10.0) mg/L Procalcitonin 19.00 H (0.02-0.09) ng/mL 06/13/19 06/14/19 06/14/19 Range/Units 23:51 04:35 04:35 WBC 24.3 H (3.8-10.6) k/uL Hgb 9.1 L (11.4-16.0) gm/dL Hct 30.9 L (34.0-46.0) % MCV 77.2 L (80.0-100.0) fL MCH 22.7 L (25.0-35.0) pg MCHC 29.4 L (31.0-37.0) g/dL RDW 20.8 H (11.5-15.5) % Neutrophils # 22.8 H (1.3-7.7) k/uL Lymphocytes # 0.8 L (1.0-4.8) k/uL D-Dimer (<0.60) mg/L FEU ABG pH (7.35-7.45) ABG pCO2 (35-45) mmHg ABG HCO3 (21-25) mmol/L ABG Total CO2 (19-24) mmol/L Sodium (137-145) mmol/L Carbon Dioxide (22-30) mmol/L BUN (7-17) mg/dL Creatinine (0.52-1.04) mg/dL Glucose (74-99) mg/dL POC Glucose (mg/dL) 146 H (75-99) mg/dL Calcium (8.4-10.2) mg/dL Ferritin 774.2 H (10.0-291.0) ng/mL Lactate Dehydrogenase 678 H (313-618) U/L C-Reactive Protein 26.9 H (<10.0) mg/L Procalcitonin (0.02-0.09) ng/mL 06/14/19 06/14/19 06/14/19 Range/Units 04:35 05:10 05:30 WBC (3.8-10.6) k/uL Hgb (11.4-16.0) gm/dL Hct (34.0-46.0) % MCV (80.0-100.0) fL MCH (25.0-35.0) pg MCHC (31.0-37.0) g/dL RDW (11.5-15.5) % Neutrophils # (1.3-7.7) k/uL Lymphocytes # (1.0-4.8) k/uL D-Dimer 0.98 H (<0.60) mg/L FEU ABG pH 7.19 L* (7.35-7.45) ABG pCO2 46 H (35-45) mmHg ABG HCO3 17 L (21-25) mmol/L ABG Total CO2 (19-24) mmol/L Sodium (137-145) mmol/L Carbon Dioxide (22-30) mmol/L BUN (7-17) mg/dL Creatinine (0.52-1.04) mg/dL Glucose (74-99) mg/dL POC Glucose (mg/dL) (75-99) mg/dL Calcium (8.4-10.2) mg/dL Ferritin (10.0-291.0) ng/mL Lactate Dehydrogenase (313-618) U/L C-Reactive Protein (<10.0) mg/L Procalcitonin 12.27 H (0.02-0.09) ng/mL 06/14/19 06/14/19 06/14/19 Range/Units 05:38 08:17 10:08 WBC (3.8-10.6) k/uL Hgb (11.4-16.0) gm/dL Hct (34.0-46.0) % MCV (80.0-100.0) fL MCH (25.0-35.0) pg MCHC (31.0-37.0) g/dL RDW (11.5-15.5) % Neutrophils # (1.3-7.7) k/uL Lymphocytes # (1.0-4.8) k/uL D-Dimer (<0.60) mg/L FEU ABG pH 7.31 L (7.35-7.45) ABG pCO2 32 L (35-45) mmHg ABG HCO3 16 L (21-25) mmol/L ABG Total CO2 17 L (19-24) mmol/L Sodium 130 L (137-145) mmol/L Carbon Dioxide 16 L (22-30) mmol/L BUN 59 H (7-17) mg/dL Creatinine 2.16 H (0.52-1.04) mg/dL Glucose 135 H (74-99) mg/dL POC Glucose (mg/dL) 154 H (75-99) mg/dL Calcium 7.8 L (8.4-10.2) mg/dL Ferritin (10.0-291.0) ng/mL Lactate Dehydrogenase (313-618) U/L C-Reactive Protein (<10.0) mg/L Procalcitonin (0.02-0.09) ng/mL Microbiology - Last 24 Hours (Table) 06/10/19 05:40 Blood Culture - Preliminary Blood No Growth after 96 hours Assessment and Plan Assessment: Acute hypoxic respiratory failure with Septic shock secondary to COVID 19 and MRSA pneumonia Acute kidney injury with metabolic acidosis from septic shock requiring dialysis Hyponatremia AFib with RVR UTI Hypertension Elevated troponin likely demand ischemia Hip tumor Patient was reintubated on 06/08/2018. Chest x-ray shows increased opacity in the lung bases. Leukocytosis of 24.3 with neutrophilia and lymphopenia pointing towards bacterial infection. Sputum culture positive MRSA and Bernadette albicans. Urine culture positive Bernadette albicans. Previous urine culture positive for E. coli. Pro-calcitonin, LDH, ferritin and CRP decreasing. Plans: Norepinephrine drip maintained by preventive medicine officer to maintain MAP > 65. Continue cefepime. Continue fluconazole. Continue vancomycin. Infectious disease following. Continue trending inflammatory markers. Vent management as per pulmonology. BUN 59, creatinine 2.16. Likely prerenal from septic shock. Plans: Continue calcium acetate. Continue sodium bicarb supplementation. Nephrology following. Dialysis today. Sodium 130. Plans: Follow urine and sodium osmolality. Follow urine sodium. Daily BMP. Plans: Started on therapeutic Lovenox, renally dosed. Continue Cardizem drip. Maintain potassium greater than 4 and magnesium greater than 2. Follow cardiol ogy recommendations. Telemetry monitoring. Plans: Completed treatment for UTI. BP 134/42. Plans: Lisinopril discontinued for acute kidney injury. Metoprolol discontinued for hypotension. Currently on pressors. Monitor vitals, adjust medications as necessary. Her troponins are flat. Troponin 0.48, 0.195, 0.190. Likely demand ischemia from sepsis. Echocardiogram with no wall motion abnormalities. Plans: Cardiology evaluated, nothing further to do. Plans: Adequate pain management. [Patient continues to be intubated. Vent management per pulmonology. Receiving dialysis. Pulmonology, infectious disease, nephrology, cardiology following. Her prognosis is poor.]
--- NOTE | 2019-06-14 15:13 | PN ---
PROGRESS NOTE Patient is seen for followup for acute kidney injury. She was started on dialysis. She will have her second treatment today. She remains aneuric, patient remains on the vent also. She is currently sedated, Nimbex has just been turned off this morning. Levophed is at about 3 mcg. PHYSICAL EXAMINATION: On examination today, blood pressure was 109/42, heart rate 60 per minute. Patient is afebrile. Rest of the exam is discussed with the nurse. Discussed with nursing staff she has some edema. The patient remains stable on the vent. She is tolerating her tube feeds. 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 LABS: Show sodium of 130, potassium 4.8, chloride 101, CO2 is 16, BUN 59, creatinine 2.16. ASSESSMENT: 1. Acute kidney injury, ATN currently oliguric, associated with COVID-19 infection, currently started on dialysis. Patient will have her third treatment today. We will try for goal UF of about 1 L. 2. Bilateral COVID-19 pneumonia. 3. Escherichia coli urinary tract infection. 4. Hypoxic acute hypoxic respiratory failure, currently on the vent. 5. Hypotension secondary to sepsis. 6. Hyperphosphatemia, maintained on PhosLo. 7. Atrial fibrillation, currently on IV Cardizem. 8. Metabolic acidosis. Expect improvement with ongoing dialysis. Continue with oral sodium bicarb as well. PLAN: 1. Repeat hemodialysis in a.m. 2. Increase UF as tolerated tomorrow. Chest x-ray from today does show bilateral infiltrates/pleural effusions. MMODL / IJN: [id number] /
--- NOTE | 2019-06-14 17:33 | PN ---
PROGRESS NOTE DATE OF SERVICE: 06/14/2019 REASON FOR FOLLOWUP: Pneumonia. INTERVAL HISTORY: The patient remains to be afebrile. The patient is hemodynamically stable, not on any pressor support. FiO2 is currently at 40%. No significant purulent secretion through ET. Did have 2 loose stools today and is undergoing dialysis. PHYSICAL EXAMINATION: Blood pressure 134/54 with a pulse of 84, temperature is 97.7. She is 96% on 40% FiO2. General description is an elderly female, intubated on the vent. RESPIRATORY SYSTEM: Unlabored breathing, decreased breath sounds in the base, with no wheeze. HEART: S1, S2. Regular rate and rhythm. ABDOMEN: Soft, no tenderness. LABS: Hemoglobin 9.8, white count down to 4.3, creatinine is up to 2.16 Vanco random is 23.7. IMPRESSION/PLAN: 1. Patient acute respiratory failure which is likely multifactorial. 2. MRSA pneumonia. The patient is currently on vancomycin as we are not able to use the Zyvox because of the medication patient was already on that is Paxil. The Vanco level will need to monitored very closely to prevent any worsening of kidney function. 3. Patient with Bernadette albicans UTI. Patient is covered with Diflucan. Her white count is currently coming down. Overall prognosis remains to be guarded. MMODL / IJN: [id number] / LOGAN
[2019-06-14 18:41] LABS: Glucose,Whole Blood 137 mg/dL (75-99)
[2019-06-14] MEDS: hydrALAZINE HCL 20 MG/ML 1 ML VIAL IVP PRN (23:20)
[2019-06-14 23:30] LABS: Glucose,Whole Blood 153 mg/dL (75-99)
[2019-06-15 04:45] LABS: C Reactive Protein 15.2 mg/L (<10.0); Calcium 7.4 mg/dL (8.4-10.2)
[2019-06-15 05:02] LABS: ABG Base Excess -6.1 mmol/L; ABG HCO3 18 mmol/L (21-25); ABG Oxygen Saturation 95.4 % (94-97); ABG PCO2 28 mmHg (35-45); ABG PH 7.43 (7.35-7.45); ABG PO2 76 mmHg (83-108); ABG TCO2 19 mmol/L (19-24)
[2019-06-15 05:27] LABS: Prothrombin Time 10.6 sec (9.0-12.0)
[2019-06-15] MEDS: DILTIAZEM 125 MG in SODIUM CHLORIDE 0.9% 100 ML IV SCH (05:36)
[2019-06-15] MEDS: INSULIN ASPART (NovoLOG) 100 UNIT/ML VIAL SQ SCH ×4 (05:37→23:55)
[2019-06-15 05:51] LABS: Anisocytosis Moderate; Basophils % (A) 0 %; Eosinophils % (A) 0 %; HCT 22.7 % (34.0-46.0); Hypochromasia Slight; Lymphocytes # (A) 0.6 k/uL (1.0-4.8); Lymphocytes % (A) 5 %; MCH 24.5 pg (25.0-35.0); MCHC 32.5 g/dL (31.0-37.0); MCV 75.4 fL (80.0-100.0); Mean Platelet Volume 9.6; Microcytosis Moderate; Monocytes # (A) 0.3 k/uL (0-1.0); Monocytes % (A) 3 %; Neutrophils # (A) 10.4 k/uL (1.3-7.7); Neutrophils % (A) 91 %; Platelet Count 213 k/uL (150-450); Poikilocytosis Moderate; RBC 3.01 m/uL (3.80-5.40); RDW 21.4 % (11.5-15.5); WBC 11.4 k/uL (3.8-10.6)
[2019-06-15 06:15] LABS: Allen Test Performed? no
[2019-06-15 06:18] LABS: HGB 7.4 gm/dL (11.4-16.0)
[2019-06-15] MEDS: CALCIUM ACETATE 667 MG TAB PO SCH ×3 (06:55→16:00)
[2019-06-15] MEDS ORDERED: VANCOMYCIN 1,250 MG in SODIUM CHLORIDE 0.9% 250 ML IVPB ONE (07:00)
--- NOTE | 2019-06-15 07:15 | XR ---
EXAMINATION TYPE: XR chest 1V portable DATE OF EXAM: 06/15/2019 COMPARISON: 06/14/2019 INDICATION: Tube placement, difficulty breathing TECHNIQUE: Single frontal view of the chest is obtained. FINDINGS: The heart size is mildly prominent. The pulmonary vasculature is prominent. There is diffuse patchy infiltrate throughout the bilateral lung coleman. Endotracheal tube has been advanced and has the tip 1.5 cm above aung. This should be pulled back a pproximately 2.5 cm. Nasogastric tube transverses the thorax the tip within the abdomen. Left central venous catheter is present with the tip within the right atrium. IMPRESSION: 1. Diffuse patchy infiltrate present bilaterally, stable from comparison. 2. Endotracheal tube tip is 1.5 cm above the aung. This should be pulled back 2.5 cm. 3. Additional lines and catheters discussed above.
[2019-06-15] MEDS: ALBUTEROL HFA INHALER INHALATION PRN ×3 (07:24→15:38)
[2019-06-15] MEDS: CEFEPIME 2 GM in SODIUM CHLORIDE 0.9% 100 ML IVPB SCH (08:47)
[2019-06-15] MEDS: PARoxetine 10 MG TAB PO SCH (08:47)
[2019-06-15] MEDS: methylPREDNISolone SOD SUCCI 40 MG/ML 1 ML VIAL IV SCH ×2 (08:47→21:13)
[2019-06-15] MEDS: ZINC SULFATE 220 MG CAP PO SCH (08:47)
[2019-06-15] MEDS: ASCORBIC ACID 500 MG TAB PO SCH ×2 (08:47→21:13)
[2019-06-15] MEDS: CHLORHEXIDINE GLUCONATE 15 ML CUP MUCOUS MEM SCH ×2 (08:47→21:13)
[2019-06-15] MEDS: FLUCONAZOLE IN NACL,ISO-OSM 100 MG in SALINE 1 50ML.BAG IVPB SCH (08:48)
[2019-06-15] MEDS: ASPIRIN 81 MG PO SCH (08:48)
[2019-06-15] MEDS: ENOXAPARIN 60 MG/0.6 ML SYRINGE SQ SCH (08:48)
[2019-06-15] MEDS: PANTOPRAZOLE 40 MG/10 ML VIAL IVP SCH (08:48)
[2019-06-15] MEDS: SODIUM BICARBONATE TAB 650 MG TAB PO SCH ×3 (08:53→21:13)
--- NOTE | 2019-06-15 11:15 | P.PN ---
Subjective Progress Note Date: 06/15/19 This is a 78-year-old female patient with respiratory failure secondary to Coumadin 19 related pneumonia. A short initially admitted on 05/26/2019 for a UTI and Covid pneumonia. Her initial urine cultures came back positive for E. coli. At the later stage, she was found to have a Covid 19 pneumonia with pulmonary complications. The patient remains in the intensive care unit intubated on a mechanical ventilator. Note that the patient was intubated on 05/31/2019. She was extubated on 06/04/2019. However on 06/09/2019 the patient worsening hypoxemia and she had to be reintubated and placed on mechanical ventilator. She also developed a septic shock related to an MRSA pneumonia. His sputum culture from 06/08/2019 was positive for MRSA. She has other ongoing issues for now including acute kidney injury and the patient remains anuric receiving hemodialysis. The patient also developed an acute non-STEMI with a troponin maxed at 0.4 started on a combination of aspirin and heparin treating an acute non-ST segment elevation myocardial infarction. The patient remains sedated and paralyzed. She is on propofol and Pneumovax. She remains on a mechanical ventilator with assist control mode with a rate of 30, tidal volume 350 and FiO2 40% with a PEEP of 15. She remains on broad-spectrum antibiotics and current antibiotic coverage includes IV cefepime and vancomycin. Diflucan was also added at the sputum was positive for Bernadette multiple occasions. She is also receiving hydroxychloroquine regarding the Covid 19 pneumonia. She is on IV Solu-Medrol 40 mg every 12 hours. She is still hypotensive requiring norepinephrine infusion for blood pressure support and he was being titrated according to the patient's BP response. Note that the patient was started on dialysis for acute kidney injury on 06/11/2019. She has a temporary dialysis catheter inserted. She 2 sessions of hemodialysis since yesterday. She is not producing any urine for now. Note that along with a septic shock, the patient developed severe leukocytosis. White cell count was high as 90.6. It has gradually improved over the past few days. On today's evaluation of 06/14/2019, the patient remains on propofol at 75 g and the patient was taken off the Nimbex. The patient remains on essentially the same ventilator settings which include a tidal volume of 350 with a PEEP of 10 and FiO2 of 40% with a tidal volume of 350 and the respiratory rate of 30. The morning blood gases showed a pH of 7.19 with a pCO2 of 46 and pO2 of 83. The patient seems to have compliant lungs and the patient was requesting higher volumes. For that reason, I increased the tidal volume of 03/30/1947. I do not to be down to 8. I started the patient was also riding the mechanical ventilator at the rate of 30 and I dropped a respiratory rate down to 22. Her chest x-ray was showing some improvement in the pneumonia. There is still feasible breast in the lung bases consistent with infiltration. The patient is still receiving enteral feeding for nutritional support. The patient as mentioned has Covid 19 infection and a bacterial pneumonia in the form of MRSA. We are somewhat inclined not to give Actemra. The interleukin level from few days ago was 56. The patient has developed an acute kidney injury. The patient is producing minimal amount of urine output and she is going to undergo dialysis today. The net fluid balance is +1.8 and 2.7 L over the past 24 hours. . On today's evaluation of 06/15/2019, the patient is being seen in follow-up in the intensive care unit. This morning, the patient remains of Nimbex. The patient is sedated with propofol running at 65 g per KG per minute. The patient is also on Cardizem at 7.5 mg an hour. The patient remains on assist control mode of ventilation. She is at the rate of 22 with a tidal volume of 500 and FiO2 of 40% with a PEEP of 5. The peak pressures 22. The static airway pressure is 11. The patient's blood gas showed a pH of 7.43 with a pCO2 of 28 and pO2 of 76. The patient a follow-up chest x-ray that showed diffuse patchy breath and pulmonary infiltrates, essentially stable compared to yesterday. Endotracheal tube was seen around 1.5 cm above the aung. The plan is to undergo another session of hemodialysis today. The patient has diffuse edema and third spacing all 4 extremities specially in the legs and the patient has been in a significant amount of fluid balance positivity. The patient underwent hemodialysis yesterday. The white cell count is at 11.4. Hemoglobin is at 7.4. The patient's sodium level is at 129. BUN is 56 with a creatinine of 1.9. The LDH level has declined down to 564. The CRP level is down to 15.2. The white cell count is also improved down to 11.4 and the patient's pro-calcitonin level is also improving. As such, the septic bacterial pneumonia has been improving with improvement in hemodynamics and improvement in the pro-calcitonin level and white count. Objective - Vital Signs Vital signs: Vital Signs Temp 98.1 F 06/15/19 08:00 Pulse 121 H 06/15/19 11:00 Resp 25 H 06/15/19 11:00 BP 131/62 06/15/19 11:00 Pulse Ox 92 L 06/15/19 11:00 Intake & Output 06/14/19 06/15/19 06/15/19 18:59 06:59 18:59 Intake Total 1274.031 6800.419 864.785 Output Total 2165 16 0 Balance -691.983 2680.419 864.785 Weight 86.9 kg 87.2 kg 87.2 kg Intake: IV 442 202 550 Cefepime 2 gm In Sodium 100 100 Chloride 0.9% 100 ml @ 200 mls/hr IVPB Q24HR [facility] Rx#:[id number] Fluconazole in NaCl,Iso- 50 150 Osm 100 mg In Saline 1 50ml.bag @ 50 mls/hr IVPB DAILY [facility] Rx#:[id number] Normal Saline Pressure 72 72 30 Bag Sodium Chloride 0.9% 1, 220 130 20 000 ml @ 20 mls/hr IV . Q24H [facility] Rx#:[id number] Vancomycin 1,250 mg In 250 Sodium Chloride 0.9% 250 ml @ 125 mls/hr IVPB ONCE ONE Rx#:[id number] Intake, IV Titration 408.457 473.419 128.785 Amount Cisatracurium 200 mg In 126.722 Sodium Chloride 0.9% 100 ml @ 2 MCG/KG/MIN 8.872 mls/hr IV .[id number] [facility] Rx #:[id number] Diltiazem 125 mg In 110.75 82.5 Sodium Chloride 0.9% 100 ml @ Per Protocol IV .Q0M [facility] Rx#:[id number] Norepinephrine 8 mg In 70.985 0 Sodium Chloride 0.9% 250 ml @ 0.05 MCG/KG/MIN 7. 153 mls/hr IV .Q24H [facility] Rx#:[id number] Propofol 1,000 mg In 100 390.919 128.785 Empty Bag 1 bag @ Titrate IV .Q0M [facility] Rx#: [id number] Tube Feeding 286 312 156 Other 90 90 30 Output: Urine 15 16 0 Stool 200 Hemodialysis 1950 Other: Voiding Method Indwelling Catheter Indwelling Catheter Indwelling Catheter # Bowel Movements 1 ABP, PAP, CO, CI - Last Documented Arterial Blood Pressure 147/58 - Exam GENERAL EXAM: 78-year-old female patient, intubated, sedated on mechanical ventilator. The patient is off paralytics for now. HEAD: Normocephalic/atraumatic. EYES: Normal reaction of pupils, equal size. Conjunctiva pink, sclera white. NOSE: Clear with pink turbinates. THROAT: No erythema or exudates. NECK: No masses, no JVD, no thyroid enlargement, no adenopathy. CHEST: No chest wall deformity. Symmetrical expansion. LUNGS: Equal air entry with crackles in the bilateral posterior bases. CVS: Regular rate and rhythm, normal S1 and S2, no gallops, no murmurs, no rubs ABDOMEN: Soft, nontender. No hepatosplenomegaly, normal bowel sounds, no guarding or rigidity. EXTREMITIES: No clubbing, significant edema in all 4 extremities, no cyanosis, 2+ pulses and upper and lower extremities. The patient is dialysis catheter in the right groin area. MUSCULOSKELETAL: Muscle strength and tone normal. SPINE: No scoliosis or deformity SKIN: No rashes CENTRAL NERVOUS SYSTEM: Intubated, sedated. No focal deficits, tone is normal in all 4 extremities. - Labs CBC & Chem 7: 06/15/19 04:25 06/15/19 04:25 Labs: Abnormal Lab Results - Last 24 Hours (Table) 06/13/19 06/13/19 06/14/19 Range/Units 04:10 04:10 04:35 WBC (3.8-10.6) k/uL RBC (3.80-5.40) m/uL Hgb (11.4-16.0) gm/dL Hct (34.0-46.0) % MCV (80.0-100.0) fL MCH (25.0-35.0) pg RDW (11.5-15.5) % Neutrophils # (1.3-7.7) k/uL Lymphocytes # (1.0-4.8) k/uL ABG pCO2 (35-45) mmHg ABG pO2 (83-108) mmHg ABG HCO3 (21-25) mmol/L Sodium (137-145) mmol/L Carbon Dioxide (22-30) mmol/L BUN (7-17) mg/dL Creatinine (0.52-1.04) mg/dL Glucose (74-99) mg/dL POC Glucose (mg/dL) (75-99) mg/dL Calcium (8.4-10.2) mg/dL Ferritin 1225.7 H 774.2 H (10.0-291.0) ng/mL C-Reactive Protein (<10.0) mg/L Procalcitonin 19.00 H (0.02-0.09) ng/mL 06/14/19 06/14/19 06/14/19 Range/Units 04:35 13:34 18:40 WBC (3.8-10.6) k/uL RBC (3.80-5.40) m/uL Hgb (11.4-16.0) gm/dL Hct (34.0-46.0) % MCV (80.0-100.0) fL MCH (25.0-35.0) pg RDW (11.5-15.5) % Neutrophils # (1.3-7.7) k/uL Lymphocytes # (1.0-4.8) k/uL ABG pCO2 (35-45) mmHg ABG pO2 (83-108) mmHg ABG HCO3 (21-25) mmol/L Sodium (137-145) mmol/L Carbon Dioxide (22-30) mmol/L BUN (7-17) mg/dL Creatinine (0.52-1.04) mg/dL Glucose (74-99) mg/dL POC Glucose (mg/dL) 135 H 137 H (75-99) mg/dL Calcium (8.4-10.2) mg/dL Ferritin (10.0-291.0) ng/mL C-Reactive Protein (<10.0) mg/L Procalcitonin 12.27 H (0.02-0.09) ng/mL 06/14/19 06/15/19 06/15/19 Range/Units 23:27 04:25 04:25 WBC 11.4 H (3.8-10.6) k/uL RBC 3.01 L (3.80-5.40) m/uL Hgb 7.4 L D (11.4-16.0) gm/dL Hct 22.7 L (34.0-46.0) % MCV 75.4 L (80.0-100.0) fL MCH 24.5 L (25.0-35.0) pg RDW 21.4 H (11.5-15.5) % Neutrophils # 10.4 H (1.3-7.7) k/uL Lymphocytes # 0.6 L (1.0-4.8) k/uL ABG pCO2 (35-45) mmHg ABG pO2 (83-108) mmHg ABG HCO3 (21-25) mmol/L Sodium 129 L (137-145) mmol/L Carbon Dioxide 18 L (22-30) mmol/L BUN 56 H (7-17) mg/dL Creatinine 1.95 H (0.52-1.04) mg/dL Glucose 136 H (74-99) mg/dL POC Glucose (mg/dL) 153 H (75-99) mg/dL Calcium 7.4 L (8.4-10.2) mg/dL Ferritin (10.0-291.0) ng/mL C-Reactive Protein 15.2 H (<10.0) mg/L Procalcitonin (0.02-0.09) ng/mL 06/15/19 Range/Units 05:02 WBC (3.8-10.6) k/uL RBC (3.80-5.40) m/uL Hgb (11.4-16.0) gm/dL Hct (34.0-46.0) % MCV (80.0-100.0) fL MCH (25.0-35.0) pg RDW (11.5-15.5) % Neutrophils # (1.3-7.7) k/uL Lymphocytes # (1.0-4.8) k/uL ABG pCO2 28 L (35-45) mmHg ABG pO2 76 L (83-108) mmHg ABG HCO3 18 L (21-25) mmol/L Sodium (137-145) mmol/L Carbon Dioxide (22-30) mmol/L BUN (7-17) mg/dL Creatinine (0.52-1.04) mg/dL Glucose (74-99) mg/dL POC Glucose (mg/dL) (75-99) mg/dL Calcium (8.4-10.2) mg/dL Ferritin (10.0-291.0) ng/mL C-Reactive Protein (<10.0) mg/L Procalcitonin (0.02-0.09) ng/mL Microbiology - Last 24 Hours (Table) 06/10/19 05:40 Blood Culture - Preliminary Blood No Growth after 120 hours Assessment and Plan Plan: 1 Acute hypoxemic and hypercapnic respiratory failure related to acute COVID 19 related pneumonia, chest x-ray on 05/31/2019 showed progressive worsening of the multifocal interstitial and alveolar opacities most pronounced in the right midl adryan. Patient required intubation and placement on mechanical ventilator on 05/31/2019, she was successfully weaned and extubated on 06/04/2019. However today on 06/09/2019 patient has developed a worsening hypoxemia, and she developed bilateral pneumonia with septic shock. On today's evaluation of 06/15/2019, the patient remains intubated on a mechanical ventilator. The bacterial MRSA pneumonia is improving. The white cell count is improved. Pro-calcitonin level has been dropping. The patient has stable interstitial by the pulmonary infiltrates on today's chest x-ray. The oxygenation is improved. The airway pressures are nonelevated. She has developed significant amount of third spacing of fluid overload. She remains in renal failure. 2 Septic shock related to MRSA pneumonia. Current coverage includes cefepime, and vancomycin. Patient required re-intubation and placement on mechanical ventilation on 06/09/2019. The septic shock is improved and the patient is currently hemodynamically stable 3 acute kidney injury secondary to sepsis and septic shock. the patient is not producing any urine output and she is dialysis dependent. The nephrology is on the case. She has a temporary dialysis catheter in the patient is requiring daily hemodialysis. 4 severe leukocytosis secondary to septic shock, improved 5 A. fib with RVR related to sepsis, the rate is better controlled on Cardizem drip at 7.5 mg an hour 6 acute non-STEMI with elevation of troponins, remains on aspirin 81 mg 7 acute bilateral Covid 19 pneumonia with secondary elevation of the LDH, ferritin related to COVID 19 infectionmy treated with Plaquenil and zinc sulfate 8 hypertensive heart disease with a concentric LVH and an ejection fraction of 55-60% with secondary pulmonary hypertension with a PA pressure of 54 based on echocardiogram from early May 2019 9 Acute urinary tract infection, related to E. coli, This was diagnosed at time of admission and his been well treated 10 History of hypertension 11 Depression 12 Recent history of large soft tissue mass involving the posterior right hip status post biopsy, results are pending 13 Previous history of chronic tobacco dependence Plan Condition remains critical Proceed with hemodialysis today Keep the same ventilator setting The blood gas and oxygenation is stable for now Continue vital for enteral nutrition Give the patient sedation holiday Check weaning parameters Assess candidacy for any further weaning keep the cefepime and vancomycin Continued IV Solu Medrol 40 mg every 12 hours Stop the Lovenox and switch this patient to subcu heparin every 8 hours, the d- dimer is down to 0.98 We'll continue to follow we'll continue the supportive care for now. Condition is critical.This evaluation was done and more than 30 minutes Time with Patient: Greater than 30
[2019-06-15 11:25] LABS: Ferritin 618.8 ng/mL (10.0-291.0)
[2019-06-15 12:12] LABS: Glucose,Whole Blood 154 mg/dL (75-99)
[2019-06-15] MEDS ORDERED: HEPARIN SODIUM,PORCINE 5,000 UNIT/ML 1 ML VIAL ONE (12:15)
--- NOTE | 2019-06-15 14:56 | PN ---
PROGRESS NOTE Patient is seen for followup for acute kidney injury. She remains pretty much aneuric with no significant urine output. Patient was dialyzed, yesterday we had about 1.9 L of fluid removed. She will be dialyzed again today. She remains on the vent. Case is discussed with nursing staff. Levophed has been off. Patient is maintained on Cardizem drip as well. PHYSICAL EXAMINATION: This morning blood pressure was 135/68, heart rate staying about 120-116 per minute, she is afebrile. No major changes in physical exam according to nursing staff. Trace edema bilateral lower extremities. The patient is tolerating tube feeds. She is maintained on FiO2 of 40% with O2 sats 94%-92%. LABS: Show hemoglobin 7.4 g/dL, sodium 129, potassium 4.0, chloride 100, CO2 is 18, BUN 56, creatinine 1.95. ASSESSMENT: 1. Acute kidney injury associated with COVID-19 infection, currently aneuric, dialysis dependent. Patient will be dialyzed again today and given her chest x-ray findings and volume overload. We will try for another 2 L today. However, blood pressure is on the lower side. We can restart the Levophed if the blood pressure drops. Patient's catheter has also not been working well when her systolic blood pressure drops. We will plan for possibly another treatment tomorrow depending on her volume status and chest x-ray findings. 2. Anemia, most likely associated with underlying bleeding. No active gastrointestinal bleed noted at this time. 3. COVID-19 pneumonia, status post treatment with hydroxychloroquine, Zithromax and zinc. 4. Metabolic acidosis maintained on sodium bicarb. We will hopefully discontinue the sodium bicarb tomorrow, based on the labs. 5. Hyponatremia associated with renal failure and volume overload. 6. Atrial fibrillation with RVR, maintained on Cardizem drip. PLAN: Hemodialysis today, goal UF close to 2 L. Possible dialysis again in a.m. depending on the volume status. MMODL / IJN: [id number] /
--- NOTE | 2019-06-15 15:35 | PN ---
PROGRESS NOTE DATE OF SERVICE: 06/15/2019 REASON FOR FOLLOWUP: Pneumonia. INTERVAL HISTORY: The patient is currently afebrile. The patient is currently on low-dose pressor support for the dialysis. FiO2 is currently at 40%. No significant purulent secretion or any worsening diarrhea reported. PHYSICAL EXAMINATION: Blood pressure is 121/60 with a pulse of 103, temperature 98.4. She is 92% on 40% FiO2. General description is an elderly female intubated on the vent. RESPIRATORY SYSTEM: Unlabored breathing. Decreased breath sounds. No wheeze. HEART: S1, S2. Regular rate and rhythm. ABDOMEN: Soft, no distention. LABS: Hemoglobin 7.4, white count 11.4, BUN of 56, creatinine 1.95. DIAGNOSTIC IMPRESSION AND PLAN: 1. Patient with acute respiratory failure which is likely multifactorial. This patient did have a component of pneumonia, sputum has MRSA. Patient is covered with vancomycin to continue. Will monitor the kidney function closely. 2. The urinary tract infection covered with Diflucan, white count almost down to normal. Continue supportive care. MMODL / IJN: [id number] /
[2019-06-15] MEDS: HEPARIN SODIUM,PORCINE 5,000 UNIT/ML 1 ML VIAL SQ SCH ×2 (16:00→23:57)
[2019-06-15 17:56] LABS: Glucose,Whole Blood 127 mg/dL (75-99)
--- NOTE | 2019-06-15 19:52 | P.PN ---
Subjective Progress Note Date: 06/15/19 Principal diagnosis: COVID pneumonia 78-year-old female with PMH of hypertension presented to the ED for epigastric discomfort and intractable nausea and vomiting. In the ED, she was noted to have an elevated troponin of 0.418 with T-wave inversions on EKG. She was started on aspirin and heparin drip and was admitted for non-ST elevation CT. On 05/27/2019 she was noted to have spiked a fever thought to be possibly related to UTI or COVID 19 infection. Troponins were trended which went from 0.195-0.190. Her troponins were related to demand ischemia probably from sepsis . Influenza A and B was negative. Urine culture did come back positive for E. coli that was sensitive to Rocephin. COVID testing was subsequently positive. She was initiated on hydroxychloroquine, azithromycin, Rocephin, zinc and vitamin C. Infectious disease was consulted and discontinued her Rocephin and azithromycin. Echocardiogram was done which showed an EF of 55-60%. Her respiratory status worsened and to 05/31/2019. Her oxygen requirements increased from 8 L nasal cannula to 15 L high flow. It was noted that she was DO NOT RESUSCITATE and DO NOT INTUBATE. I had a long conversation with the patient and she was agreeable for intubation. Pulmonology was consulted and she was moved to the ICU for elective intubation. Sedation holiday was attempted on June 01 and June 02. She did have diarrhea for which she was given cholestyramine, C. diff was negative. Patient was extubated on 06/04/2019. She did go into atrial flutter on telemetry on 06/04/2019 for which she was started on therapeutic Lovenox by cardiology. Her Rocephin was started on 06/05/2019 for total of 3 doses to treat UTI. Her respiratory status continued to worsen after extubation patient was reintubated on 06/09/2019. On June 09 patient was noted to be in A. fib with rate of 103-120 bpm for which she was started on Cardizem drip. Patient required pressors to maintain BP and was started on norepinephrine IV. Vancomycin was added to her medication regimen of cefepime and hydroxychloroquine was restarted for worsening leukocytosis and inflammatory markers. Urine, blood and sputum cultures were collected. Sputum culture grew MRSA and Bernadette albicans. Her urine culture grew bernadette albicans and she was started on Fluconazole IV. Her renal function and urine production continued to worsen and nephrology was consulted. Dialysis catheter was placed on 06/11/2019 and dialysis was initiated. Patient was seen and examined. Going to get dialysis today. Plans to wean sedation. Rate of 22. Tiral volume 500. FiO2 40%. PEEP of 5. Chest x-ray shows no improvement from yesterday. Hemoglobin is 7.4 this morning. Sodium is 129. Leukocytosis, CRP and LDH improving. Objective - Vital Signs Vital signs: Vital Signs Temp 97.7 F 06/15/19 16:00 Pulse 108 H 06/15/19 19:00 Resp 29 H 06/15/19 19:00 BP 119/62 06/15/19 15:41 Pulse Ox 96 06/15/19 19:00 Intake & Output 06/15/19 06/15/19 06/16/19 06:59 18:59 06:59 Intake Total 8702.053 5352.831 Output Total 16 3010 Balance 1061.419 -1735.169 Weight 87.2 kg 87.2 kg Intake: IV 202 586 Cefepime 2 gm In Sodium 100 Chloride 0.9% 100 ml @ 200 mls/hr IVPB Q24HR [facility] Rx#:[id number] Fluconazole in NaCl,Iso- 50 Osm 100 mg In Saline 1 50ml.bag @ 50 mls/hr IVPB DAILY [facility] Rx#:[id number] Normal Saline Pressure 72 66 Bag Sodium Chloride 0.9% 1, 130 120 000 ml @ 20 mls/hr IV . Q24H [facility] Rx#:[id number] Vancomycin 1,250 mg In 250 Sodium Chloride 0.9% 250 ml @ 125 mls/hr IVPB ONCE ONE Rx#:[id number] Intake, IV Titration 473.419 234.831 Amount Diltiazem 125 mg In 82.5 Sodium Chloride 0.9% 100 ml @ Per Protocol IV .Q0M [facility] Rx#:[id number] Norepinephrine 8 mg In 0 0 Sodium Chloride 0.9% 250 ml @ 0.05 MCG/KG/MIN 7. 153 mls/hr IV .Q24H [facility] Rx#:[id number] Propofol 1,000 mg In 390.919 234.831 Empty Bag 1 bag @ Titrate IV .Q0M [facility] Rx#: [id number] Tube Feeding 312 364 Other 90 90 Output: Urine 16 10 Hemodialysis 3000 Other: Voiding Method Indwelling Catheter Indwelling Catheter ABP, PAP, CO, CI - Last Documented Arterial Blood Pressure 127/53 - Exam General: [non toxic], [intubated], [appears at stated age] Derm: [warm], [dry] Head: [atraumatic], [normocephalic], [symmetric] Eyes: [EOMI], [no lid lag], [anicteric sclera] Mouth: [no lip lesion], [mucus membranes moist] Cardiovascular: [S1S2 reg], [tachycardia], [positive DP pulse bilateral], Lungs: [Coarse breath sounds bilaterally], [no rhonchi, no rales] , [no a ccessory muscle use] Abdominal: [soft], [ nontender to palpation], [no guarding], [no appreciable or ganomegaly] Ext: [no gross muscle atrophy], [no edema], [no contractures], [right groin dialysis catheter] Neuro: [Unable to determine] Psych: [Unable to determine] - Labs CBC & Chem 7: 06/15/19 04:25 06/15/19 04:25 Labs: Abnormal Lab Results - Last 24 Hours (Table) 06/14/19 06/15/19 06/15/19 Range/Units 23:27 04:25 04:25 WBC 11.4 H (3.8-10.6) k/uL RBC 3.01 L (3.80-5.40) m/uL Hgb 7.4 L D (11.4-16.0) gm/dL Hct 22.7 L (34.0-46.0) % MCV 75.4 L (80.0-100.0) fL MCH 24.5 L (25.0-35.0) pg RDW 21.4 H (11.5-15.5) % Neutrophils # 10.4 H (1.3-7.7) k/uL Lymphocytes # 0.6 L (1.0-4.8) k/uL ABG pCO2 (35-45) mmHg ABG pO2 (83-108) mmHg ABG HCO3 (21-25) mmol/L Sodium 129 L (137-145) mmol/L Carbon Dioxide 18 L (22-30) mmol/L BUN 56 H (7-17) mg/dL Creatinine 1.95 H (0.52-1.04) mg/dL Glucose 136 H (74-99) mg/dL POC Glucose (mg/dL) 153 H (75-99) mg/dL Calcium 7.4 L (8.4-10.2) mg/dL Ferritin 618.8 H (10.0-291.0) ng/mL C-Reactive Protein 15.2 H (<10.0) mg/L 06/15/19 06/15/19 06/15/19 Range/Units 05:02 12:10 17:55 WBC (3.8-10.6) k/uL RBC (3.80-5.40) m/uL Hgb (11.4-16.0) gm/dL Hct (34.0-46.0) % MCV (80.0-100.0) fL MCH (25.0-35.0) pg RDW (11.5-15.5) % Neutrophils # (1.3-7.7) k/uL Lymphocytes # (1.0-4.8) k/uL ABG pCO2 28 L (35-45) mmHg ABG pO2 76 L (83-108) mmHg ABG HCO3 18 L (21-25) mmol/L Sodium (137-145) mmol/L Carbon Dioxide (22-30) mmol/L BUN (7-17) mg/dL Creatinine (0.52-1.04) mg/dL Glucose (74-99) mg/dL POC Glucose (mg/dL) 154 H 127 H (75-99) mg/dL Calcium (8.4-10.2) mg/dL Ferritin (10.0-291.0) ng/mL C-Reactive Protein (<10.0) mg/L Microbiology - Last 24 Hours (Table) 06/10/19 05:40 Blood Culture - Preliminary Blood No Growth after 120 hours Assessment and Plan Assessment: Acute hypoxic respiratory failure with Septic shock secondary to COVID 19 and MRSA pneumonia Acute kidney injury with metabolic acidosis from septic shock requiring dialysis Anemia Hyponatremia AFib with RVR UTI Hypertension Elevated troponin likely demand ischemia Hip tumor Patient was reintubated on 06/08/2018. Chest x-ray shows stable changes. Leukocytosis of 24.3-11.4 with neutrophilia and lymphopenia pointing towards bacterial infection. Sputum culture positive MRSA and Bernadette albicans. Urine culture positive Bernadette albicans. Previous urine culture positive for E. coli. Pro-calcitonin, LDH, ferritin and CRP decreasing. Plans: Norepinephrine drip maintained by fur dry cleaner to maintain MAP > 65. Continue cefepime. Continue fluconazole. Continue vancomycin. Infectious disease following. Continue trending inflammatory markers. Vent management as per pulmonology. BUN 59-56, creatinine 2.16-1.95. Likely prerenal from septic shock. Plans: Continue calcium acetate. Continue sodium bicarb supplementation. Nephrology following. Dialysis today. Hemoglobin dropped from 9.1-7.4. No obvious source of bleed. Plans: DC Lovenox and start subcut Heparin. Follow repeat CBC. Sodium 129. Plans: Follow urine and sodium osmolality. Follow urine sodium. Daily BMP. Plans: Lovenox discontinued due to drop in hemoglobin, continue subcutaneous heparin. Continue Cardizem drip. Maintain potassium greater than 4 and magnesium greater than 2. Follow cardiology recommendations. Telemetry monitoring. Plans: Completed treatment for UTI. BP 127/53. Plans: Lisinopril discontinued for acute kidney injury. Metoprolol discontinued for hypotension. Currently on pressors. Monitor vitals, adjust medications as necessary. Her troponins are flat. Troponin 0.48, 0.195, 0.190. Likely demand ischemia from sepsis. Echocardiogram with no wall motion abnormalities. Plans: Cardiology evaluated, nothing further to do. Plans: Adequate pain management. [Patient continues to be intubated. Vent management per pulmonology. Receiving dialysis. Pulmonology, infectious disease, nephrology, cardiology following. Her prognosis is poor. Plans have goals of care discussion with family tomorrow.]
[2019-06-15 21:14] LABS: Anisocytosis Moderate; HCT 23.2 % (34.0-46.0); HGB 7.2 gm/dL (11.4-16.0); Hypochromasia Moderate; MCHC 30.8 g/dL (31.0-37.0); MCV 74.4 fL (80.0-100.0); Mean Platelet Volume 8.1; Microcytosis Moderate; Platelet Count 233 k/uL (150-450); Poikilocytosis Moderate; RBC 3.12 m/uL (3.80-5.40); RDW 21.1 % (11.5-15.5); WBC 15.8 k/uL (3.8-10.6)
[2019-06-15] MEDS: hydrALAZINE HCL 20 MG/ML 1 ML VIAL IVP PRN (22:40)
[2019-06-15 23:54] LABS: Glucose,Whole Blood 123 mg/dL (75-99)
[2019-06-16 05:26] LABS: ABG Base Excess -2.4 mmol/L; ABG HCO3 21 mmol/L (21-25); ABG Oxygen Saturation 96.4 % (94-97); ABG PCO2 29 mmHg (35-45); ABG PH 7.48 (7.35-7.45); ABG PO2 81 mmHg (83-108); ABG TCO2 22 mmol/L (19-24)
[2019-06-16 05:31] LABS: Calcium 7.6 mg/dL (8.4-10.2); Potassium 4.1 mmol/L (3.5-5.1)
[2019-06-16 05:36] LABS: Vancomycin,Random 27.4 ug/mL
[2019-06-16 05:40] LABS: Allen Test Performed? no
[2019-06-16] MEDS: INSULIN ASPART (NovoLOG) 100 UNIT/ML VIAL SQ SCH ×4 (05:53→23:53)
[2019-06-16 05:55] LABS: Anisocytosis Moderate; HCT 22.6 % (34.0-46.0); HGB 7.3 gm/dL (11.4-16.0); Hypochromasia Moderate; MCH 23.9 pg (25.0-35.0); MCHC 32.1 g/dL (31.0-37.0); MCV 74.6 fL (80.0-100.0); Mean Platelet Volume 10.1; Microcytosis Moderate; Platelet Count 277 k/uL (150-450); Poikilocytosis Moderate; RBC 3.03 m/uL (3.80-5.40); RDW 21.9 % (11.5-15.5); WBC 19.2 k/uL (3.8-10.6)
[2019-06-16 06:21] LABS: Lymphocytes # (M) 1.92 k/uL (1.0-4.8); Neutrophils # (M) 17.28 k/uL (1.3-7.7); Neutrophils % (M) 90 %; Nucleated Red Blood Cells 0 /100 WBC (0-0); Total Cells Counted 100
[2019-06-16 06:46] LABS: Glucose,Whole Blood 159 mg/dL (75-99)
[2019-06-16] MEDS: ALBUTEROL HFA INHALER INHALATION PRN ×4 (07:22→23:26)
--- NOTE | 2019-06-16 07:36 | XR ---
EXAMINATION TYPE: XR chest 1V portable DATE OF EXAM: 06/16/2019 COMPARISON: 06/15/2019 HISTORY: Ventilatory dependent respiratory failure. TECHNIQUE: Single frontal view of the chest is obtained. FINDINGS: Enteric, endotracheal, and left internal jugular central venous catheter are appropriately positioned. Endotracheal tube has been retracted now terminating 3.4 cm from the aung, previously 1.5 cm. There is improved aeration of the lung bases with at least mild pulmonary vascular congestion remaini ng and bibasilar reticular interstitial airspace disease. 2 subcentimeter nodular densities on the le ft could represent pulmonary vessels en face. Attention on follow-up exam. Very trace pleural effusio ns have improved. Lung apices are not imaged and therefore evaluation for pneumothorax is suboptimal. Stable cardiomediastinal silhouette. IMPRESSION: 1. Improved bibasilar reticular interstitial airspace disease after retraction of the endotracheal tu be, now appropriately placed. Improved trace bilateral pleural effusions. 2. Possible subcentimeter left pulmonary nodules versus vessels en face. Attention on follow-up exam.
[2019-06-16] MEDS: CHLORHEXIDINE GLUCONATE 15 ML CUP MUCOUS MEM SCH ×2 (08:41→20:35)
[2019-06-16] MEDS: CEFEPIME 2 GM in SODIUM CHLORIDE 0.9% 100 ML IVPB SCH (08:41)
[2019-06-16] MEDS: HEPARIN SODIUM,PORCINE 5,000 UNIT/ML 1 ML VIAL SQ SCH ×3 (08:42→23:55)
[2019-06-16] MEDS: CALCIUM ACETATE 667 MG TAB PO SCH ×3 (08:42→17:42)
[2019-06-16] MEDS: ASCORBIC ACID 500 MG TAB PO SCH ×2 (08:42→20:34)
[2019-06-16] MEDS: ASPIRIN 81 MG PO SCH (08:42)
[2019-06-16] MEDS: ZINC SULFATE 220 MG CAP PO SCH (08:42)
[2019-06-16] MEDS: SODIUM BICARBONATE TAB 650 MG TAB PO SCH ×3 (08:42→20:35)
[2019-06-16] MEDS: PANTOPRAZOLE 40 MG/10 ML VIAL IVP SCH (08:43)
[2019-06-16] MEDS: PARoxetine 10 MG TAB PO SCH (08:44)
[2019-06-16] MEDS: methylPREDNISolone SOD SUCCI 40 MG/ML 1 ML VIAL IV SCH (08:44)
[2019-06-16] MEDS: FLUCONAZOLE IN NACL,ISO-OSM 100 MG in SALINE 1 50ML.BAG IVPB SCH (08:47)
[2019-06-16] MEDS ORDERED: HEPARIN SODIUM,PORCINE 5,000 UNIT/ML 1 ML VIAL ONE (08:50)
--- NOTE | 2019-06-16 12:52 | P.PN ---
Subjective Progress Note Date: 06/16/19 This is a 78-year-old female patient with respiratory failure secondary to Coumadin 19 related pneumonia. A short initially admitted on 05/26/2019 for a UTI and Covid pneumonia. Her initial urine cultures came back positive for E. coli. At the later stage, she was found to have a Covid 19 pneumonia with pulmonary complications. The patient remains in the intensive care unit intubated on a mechanical ventilator. Note that the patient was intubated on 05/31/2019. She was extubated on 06/04/2019. However on 06/09/2019 the patient worsening hypoxemia and she had to be reintubated and placed on mechanical ventilator. She also developed a septic shock related to an MRSA pneumonia. His sputum culture from 06/08/2019 was positive for MRSA. She has other ongoing issues for now including acute kidney injury and the patient remains anuric receiving hemodialysis. The patient also developed an acute non-STEMI with a troponin maxed at 0.4 started on a combination of aspirin and heparin treating an acute non-ST segment elevation myocardial infarction. The patient remains sedated and paralyzed. She is on propofol and Pneumovax. She remains on a mechanical ventilator with assist control mode with a rate of 30, tidal volume 350 and FiO2 40% with a PEEP of 15. She remains on broad-spectrum antibiotics and current antibiotic coverage includes IV cefepime and vancomycin. Diflucan was also added at the sputum was positive for Bernadette multiple occasions. She is also receiving hydroxychloroquine regarding the Covid 19 pneumonia. She is on IV Solu-Medrol 40 mg every 12 hours. She is still hypotensive requiring norepinephrine infusion for blood pressure support and he was being titrated according to the patient's BP response. Note that the patient was started on dialysis for acute kidney injury on 06/11/2019. She has a temporary dialysis catheter inserted. She 2 sessions of hemodialysis since yesterday. She is not producing any urine for now. Note that along with a septic shock, the patient developed severe leukocytosis. White cell count was high as 90.6. It has gradually improved over the past few days. On today's evaluation of 06/14/2019, the patient remains on propofol at 75 g and the patient was taken off the Nimbex. The patient remains on essentially the same ventilator settings which include a tidal volume of 350 with a PEEP of 10 and FiO2 of 40% with a tidal volume of 350 and the respiratory rate of 30. The morning blood gases showed a pH of 7.19 with a pCO2 of 46 and pO2 of 83. The patient seems to have compliant lungs and the patient was requesting higher volumes. For that reason, I increased the tidal volume of 03/30/1947. I do not to be down to 8. I started the patient was also riding the mechanical ventilator at the rate of 30 and I dropped a respiratory rate down to 22. Her chest x-ray was showing some improvement in the pneumonia. There is still feasible breast in the lung bases consistent with infiltration. The patient is still receiving enteral feeding for nutritional support. The patient as mentioned has Covid 19 infection and a bacterial pneumonia in the form of MRSA. We are somewhat inclined not to give Actemra. The interleukin level from few days ago was 56. The patient has developed an acute kidney injury. The patient is producing minimal amount of urine output and she is going to undergo dialysis today. The net fluid balance is +1.8 and 2.7 L over the past 24 hours. . On today's evaluation of 06/15/2019, the patient is being seen in follow-up in the intensive care unit. This morning, the patient remains of Nimbex. The patient is sedated with propofol running at 65 g per KG per minute. The patient is also on Cardizem at 7.5 mg an hour. The patient remains on assist control mode of ventilation. She is at the rate of 22 with a tidal volume of 500 and FiO2 of 40% with a PEEP of 5. The peak pressures 22. The static airway pressure is 11. The patient's blood gas showed a pH of 7.43 with a pCO2 of 28 and pO2 of 76. The patient a follow-up chest x-ray that showed diffuse patchy breath and pulmonary infiltrates, essentially stable compared to yesterday. Endotracheal tube was seen around 1.5 cm above the aung. The plan is to undergo another session of hemodialysis today. The patient has diffuse edema and third spacing all 4 extremities specially in the legs and the patient has been in a significant amount of fluid balance positivity. The patient underwent hemodialysis yesterday. The white cell count is at 11.4. Hemoglobin is at 7.4. The patient's sodium level is at 129. BUN is 56 with a creatinine of 1.9. The LDH level has declined down to 564. The CRP level is down to 15.2. The white cell count is also improved down to 11.4 and the patient's pro-calcitonin level is also improving. As such, the septic bacterial pneumonia has been improving with improvement in hemodynamics and improvement in the pro-calcitonin level and white count. On 06/16/2019, the patient is being seen in follow-up in the intensive care unit. This morning, the patient is been taken off sedation and the patient is being given a sedation holiday. At the time of my evaluation, she was still very much some limited and sleepy and sedated and the patient was not following any commands nor she wasn't withdrawing to any painful stimulation. I requested to keep the patient off propofol for now. She remains on Cardizem at 7.5 mg an hour to control her atrial fibrillation. She remains on a mechanical ventilator with essentially the same ventilator settings which included control of 22, tidal volume of 350, FiO2 of 40% and a PEEP of 5. Peak and static airway pressures are not elevated PA chest x-ray shows stable about pulmonary infiltrates dated to Covid 19 related pneumonia in addition to a superimposed bacterial pneumonia which improved clinically. Mother the patient is afebrile. The patient's white cell count is improved. The patient's pro-calcitonin level is declining is down to 12.2. Also, the patient's blood. Showed a pH of 7.48 with a pCO2 of 29 and pO2 of 81 is with an FiO2 of 40%. The patient is still on examination antibiotics patient is receiving cefepime and vancomycin and Diflucan. She remains on vitamin AF which is running at 26 an hour for enteral feeding and nutritional support. She is undergoing daily dialysis. Her fluid balance is been negative as the patient has been essentially undergoing daily dialysis with ultrafiltration. The plan is to proceed another session of dialysis today. Her current weight is 86 kg which is 1 kg less compared to yesterday. Had extremity edema is also improving. She is afebrile for now. Objective - Vital Signs Vital signs: Vital Signs Temp 97.9 F 06/16/19 08:00 Pulse 102 H 06/16/19 11:00 Resp 24 06/16/19 11:00 BP 119/62 06/15/19 15:41 Pulse Ox 96 06/16/19 11:00 Intake & Output 06/15/19 06/16/1906/15/20 18:59 06:59 18:59 Intake Total 1274.831 672.604 242 Output Total 3010 8 18 Balance -1735.169 664.604 224 Weight 87.2 kg 86.1 kg 86.1 kg Intake: IV 586 176 60 Cefepime 2 gm In Sodium 100 Chloride 0.9% 100 ml @ 200 mls/hr IVPB Q24HR [facility] Rx#:[id number] Fluconazole in NaCl,Iso- 50 Osm 100 mg In Saline 1 50ml.bag @ 50 mls/hr IVPB DAILY [facility] Rx#:[id number] Normal Saline Pressure 66 66 30 Bag Sodium Chloride 0.9% 1, 120 110 30 000 ml @ 20 mls/hr IV . Q24H [facility] Rx#:[id number] Vancomycin 1,250 mg In 250 Sodium Chloride 0.9% 250 ml @ 125 mls/hr IVPB ONCE ONE Rx#:[id number] Intake, IV Titration 234.831 60.604 Amount Norepinephrine 8 mg In 0 Sodium Chloride 0.9% 250 ml @ 0.05 MCG/KG/MIN 7. 153 mls/hr IV .Q24H [facility] Rx#:[id number] Propofol 1,000 mg In 234.831 60.604 Empty Bag 1 bag @ Titrate IV .Q0M [facility] Rx#: [id number] Tube Feeding 364 286 182 Other 90 150 Output: Urine 10 8 18 Hemodialysis 3000 Other: Voiding Method Indwelling Catheter Indwelling Catheter Indwelling Catheter ABP, PAP, CO, CI - Last Documented Arterial Blood Pressure 141/44 - Exam GENERAL EXAM: 78-year-old female patient, intubated, sedated on mechanical ventilator. The patient is off sedation the patient is being given a sedation holiday for the time being. HEAD: Normocephalic/atraumatic. EYES: Normal reaction of pupils, equal size. Conjunctiva pink, sclera white. NOSE: Clear with pink turbinates. THROAT: No erythema or exudates. NECK: No masses, no JVD, no thyroid enlargement, no adenopathy. CHEST: No chest wall deformity. Symmetrical expansion. LUNGS: Equal air entry with crackles in the bilateral posterior bases. CVS: Regular rate and rhythm, normal S1 and S2, no gallops, no murmurs, no rubs ABDOMEN: Soft, nontender. No hepatosplenomegaly, normal bowel sounds, no guarding or rigidity. EXTREMITIES: No clubbing, significant edema in all 4 extremities, no cyanosis, 2+ pulses and upper and lower extremities. The patient is dialysis catheter in the right groin area. MUSCULOSKELETAL: Muscle strength and tone normal. SPINE: No scoliosis or deformity SKIN: No rashes CENTRAL NERVOUS SYSTEM: Intubated, sedated. No focal deficits, tone is normal in all 4 extremities. - Labs CBC & Chem 7: 06/16/19 05:05 06/16/19 05:05 Labs: Abnormal Lab Results - Last 24 Hours (Table) 06/15/19 06/15/19 06/15/19 Range/Units 17:55 20:30 23:52 WBC 15.8 H (3.8-10.6) k/uL RBC 3.12 L (3.80-5.40) m/uL Hgb 7.2 L (11.4-16.0) gm/dL Hct 23.2 L (34.0-46.0) % MCV 74.4 L (80.0-100.0) fL MCH 23.0 L (25.0-35.0) pg MCHC 30.8 L (31.0-37.0) g/dL RDW 21.1 H (11.5-15.5) % Neutrophils # (Manual) (1.3-7.7) k/uL ABG pH (7.35-7.45) ABG pCO2 (35-45) mmHg ABG pO2 (83-108) mmHg Sodium (137-145) mmol/L Carbon Dioxide (22-30) mmol/L BUN (7-17) mg/dL Creatinine (0.52-1.04) mg/dL Glucose (74-99) mg/dL POC Glucose (mg/dL) 127 H 123 H (75-99) mg/dL Calcium (8.4-10.2) mg/dL 06/16/19 06/16/19 06/16/19 Range/Units 05:05 05:05 05:25 WBC 19.2 H (3.8-10.6) k/uL RBC 3.03 L (3.80-5.40) m/uL Hgb 7.3 L (11.4-16.0) gm/dL Hct 22.6 L (34.0-46.0) % MCV 74.6 L (80.0-100.0) fL MCH 23.9 L (25.0-35.0) pg MCHC (31.0-37.0) g/dL RDW 21.9 H (11.5-15.5) % Neutrophils # (Manual) 17.28 H (1.3-7.7) k/uL ABG pH 7.48 H (7.35-7.45) ABG pCO2 29 L (35-45) mmHg ABG pO2 81 L (83-108) mmHg Sodium 131 L (137-145) mmol/L Carbon Dioxide 21 L (22-30) mmol/L BUN 52 H (7-17) mg/dL Creatinine 2.32 H (0.52-1.04) mg/dL Glucose 119 H (74-99) mg/dL POC Glucose (mg/dL) (75-99) mg/dL Calcium 7.6 L (8.4-10.2) mg/dL 06/16/19 Range/Units 06:44 WBC (3.8-10.6) k/uL RBC (3.80-5.40) m/uL Hgb (11.4-16.0) gm/dL Hct (34.0-46.0) % MCV (80.0-100.0) fL MCH (25.0-35.0) pg MCHC (31.0-37.0) g/dL RDW (11.5-15.5) % Neutrophils # (Manual) (1.3-7.7) k/uL ABG pH (7.35-7.45) ABG pCO2 (35-45) mmHg ABG pO2 (83-108) mmHg Sodium (137-145) mmol/L Carbon Dioxide (22-30) mmol/L BUN (7-17) mg/dL Creatinine (0.52-1.04) mg/dL Glucose (74-99) mg/dL POC Glucose (mg/dL) 159 H (75-99) mg/dL Calcium (8.4-10.2) mg/dL Microbiology - Last 24 Hours (Table) 06/10/19 05:40 Blood Culture - Final Blood No Growth after 144 hours Assessment and Plan Plan: 1 Acute hypoxemic and hypercapnic respiratory failure related to acute COVID 19 related pneumonia, chest x-ray on 05/31/2019 showed progressive worsening of the multifocal interstitial and alveolar opacities most pronounced in the right midlung. Patient required intubation and placement on mechanical ventilator on 05/31/2019, she was successfully weaned and extubated on 06/04/2019. However today on 06/09/2019 patient has developed a worsening hypoxemia, and she developed bilateral pneumonia with septic shock. On today's evaluation of 06/16/2019, will be that the patient's pneumonia which wasn't MRSA pneumonia has improved with the current antibiotic coverage. She does have an underlying Covid 19 related pneumonia for which she was also treated. The chest x-ray was noted. The blood gas was noted. Ventilator was checked. Peak and static pressure were checked. The patient currently is off sedation and hopefully we should be able to get her back awake today or tomorrow and assess his readiness to wean. In terms of her septic shock, the patient has recovered and the patient is hemodynamically stable. The patient is still dialysis dependent undergoing daily dialysis with ultrafiltration. 2 Septic shock related to MRSA pneumonia. Current coverage includes cefepime, and vancomycin. Patient required re-intubation and placement on mechanical ventilation on 06/09/2019. The septic shock is improved and the patient is currently hemodynamically stable 3 acute kidney injury secondary to sepsis and septic shock. the patient is not producing any urine output and she is dialysis dependent. The nephrology is on the case. She has a temporary dialysis catheter in the patient is requiring daily hemodialysis. 4 severe leukocytosis secondary to septic shock, improved 5 A. fib with RVR related to sepsis, the rate is better controlled on Cardizem drip at 7.5 mg an hour 6 acute non-STEMI with elevation of troponins, remains on aspirin 81 mg 7 acute bilateral Covid 19 pneumonia with secondary elevation of the LDH, ferritin related to COVID 19 infectionmy treated with Plaquenil and zinc sulfate, and inflammatory markers including the LDH and the ferritin the CRP levels improved/improving 8 hypertensive heart disease with a concentric LVH and an ejection fraction of 55-60% with secondary pulmonary hypertension with a PA pressure of 54 based on echocardiogram from early May 2019 9 Acute urinary tract infection, related to E. coli, This was diagnosed at time of admission and his been well treated 10 History of hypertension 11 Depression 12 Recent history of large soft tissue mass involving the posterior right hip status post biopsy, results are pending 13 Previous history of chronic tobacco dependence Plan Proceed with dialysis today Continue vent support Continue vital AF for enteral nutrition Give the patient sedation holiday Check weaning parameters the patient is currently off sedation and would awaiting some degree of recovery of neurologic function is with subsequent assessment for her candidacy for any further weaning keep the cefepime and vancomycin and the patient is also on Diflucan. Discontinued IV Solu Medrol and start the patient prednisone burst taper Stop the Lovenox and switch this patient to subcu heparin every 8 hours, the d- dimer is down to 0.98 We'll continue to follow we'll continue the supportive care for now. Condition is critical.This evaluation was done and more than 30 minutes Time with Patient: Greater than 30
[2019-06-16 13:09] LABS: Glucose,Whole Blood 134 mg/dL (75-99)
--- NOTE | 2019-06-16 13:49 | PN ---
PROGRESS NOTE Patient is seen for followup for acute kidney injury, currently hemodialysis dependent. She continues to have no significant urine output. She was dialyzed yesterday and we had about 3 L of fluid removed and she is scheduled for hemodialysis again today. Patient remains on the vent. It appears that there may be some improvement in her chest x-ray findings. Her sedation has been decreased; however, patient does not have any significant improvement in mentation or any purposeful movements. PHYSICAL EXAMINATION: Patient is sedated. Discussed with nursing staff. FiO2 is at 40%. She is not on any Levophed. No urine output, tolerating tube feeds. No significant edema noted. LABS: Show sodium 131, potassium 4.1, chloride 101, BUN 52, creatinine 2.32, hemoglobin 7.3 g/dL. ASSESSMENT: 1. Acute kidney injury ATN, hemodialysis dependent. We will arrange for hemodialysis again today and possibly in a.m. as well as long as we can get fluid off. 2. Hypoxic respiratory failure, currently on the vent. 3. COVID pneumonia. 4. Anemia, no active bleeding. There is continues oozing from all the lines. 5. Candiduria. 6. MRSA in the sputum. 7. Escherichia coli urinary tract infection. 8. Atrial fibrillation, currently on Cardizem. PLAN: Hemodialysis today with UF about 2-3 L as tolerated. Continue with the PhosLo. Check phosphorus levels since last level was checked on 06/11/2019. MMODL / IJN: [id number] /
--- NOTE | 2019-06-16 16:28 | P.PN ---
Subjective Progress Note Date: 06/16/19 Principal diagnosis: COVID pneumonia 78-year-old female with PMH of hypertension presented to the ED for epigastric discomfort and intractable nausea and vomiting. In the ED, she was noted to have an elevated troponin of 0.418 with T-wave inversions on EKG. She was started on aspirin and heparin drip and was admitted for non-ST elevation WI. On 05/27/2019 she was noted to have spiked a fever thought to be possibly related to UTI or COVID 19 infection. Troponins were trended which went from 0.195-0.190. Her troponins were related to demand ischemia probably from sepsis . Influenza A and B was negative. Urine culture did come back positive for E. coli that was sensitive to Rocephin. COVID testing was subsequently positive. She was initiated on hydroxychloroquine, azithromycin, Rocephin, zinc and vitamin C. Infectious disease was consulted and discontinued her Rocephin and azithromycin. Echocardiogram was done which showed an EF of 55-60%. Her respiratory status worsened and to 05/31/2019. Her oxygen requirements increased from 8 L nasal cannula to 15 L high flow. It was noted that she was DO NOT RESUSCITATE and DO NOT INTUBATE. I had a long conversation with the patient and she was agreeable for intubation. Pulmonology was consulted and she was moved to the ICU for elective intubation. Sedation holiday was attempted on June 01 and June 02. She did have diarrhea for which she was given cholestyramine, C. diff was negative. Patient was extubated on 06/04/2019. She did go into atrial flutter on telemetry on 06/04/2019 for which she was started on therapeutic Lovenox by cardiology. Her Rocephin was started on 06/05/2019 for total of 3 doses to treat UTI. Her respiratory status continued to worsen after extubation patient was reintubated on 06/09/2019. On June 09 patient was noted to be in A. fib with rate of 103-120 bpm for which she was started on Cardizem drip. Patient required pressors to maintain BP and was started on norepinephrine IV. Vancomycin was added to her medication regimen of cefepime and hydroxychloroquine was restarted for worsening leukocytosis and inflammatory markers. Urine, blood and sputum cultures were collected. Sputum culture grew MRSA and Bernadette albicans. Her urine culture grew bernadette albicans and she was started on Fluconazole IV. Her renal function and urine production continued to worsen and nephrology was consulted. Dialysis catheter was placed on 06/11/2019 and dialysis was initiated. Patient underwent sedation holiday on June 14 and , she has been minimally responsive and unable to follow commands up until this time. Her condition continues to remain critical. Patient was seen and examined. Patient minimally responsive and not following commands off sedation. Rate of 22. Tidal volume 350. FiO2 40%. PEEP of 5. Chest x-ray shows improved bibasilar reticular interstitial airspace disease. Hemoglobin remaining stable at 7.3. Sodium improving to 131. Leukocytosis, CRP and LDH improving. Attempted to call daughter Dorene, went to voicemail. Objective - Vital Signs Vital signs: Vital Signs Temp 97.4 F L 06/16/19 15:10 Pulse 131 H 06/16/19 15:10 Resp 30 H 06/16/19 15:10 BP 109/55 06/16/19 15:10 Pulse Ox 94 L 06/16/19 15:00 Intake & Output 06/15/19 06/16/19 06/16/19 18:59 06:59 18:59 Intake Total 1274.831 672.604 450 Output Total 3010 8 2521 Balance -1735.169 664.604 -2071 Weight 87.2 kg 86.1 kg 86.1 kg Intake: IV 586 176 112 Cefepime 2 gm In Sodium 100 Chloride 0.9% 100 ml @ 200 mls/hr IVPB Q24HR [facility] Rx#:[id number] Fluconazole in NaCl,Iso- 50 Osm 100 mg In Saline 1 50ml.bag @ 50 mls/hr IVPB DAILY [facility] Rx#:[id number] Normal Saline Pressure 66 66 42 Bag Sodium Chloride 0.9% 1, 120 110 70 000 ml @ 20 mls/hr IV . Q24H [facility] Rx#:[id number] Vancomycin 1,250 mg In 250 Sodium Chloride 0.9% 250 ml @ 125 mls/hr IVPB ONCE ONE Rx#:[id number] Intake, IV Titration 234.831 60.604 Amount Norepinephrine 8 mg In 0 Sodium Chloride 0.9% 250 ml @ 0.05 MCG/KG/MIN 7. 153 mls/hr IV .Q24H [facility] Rx#:[id number] Propofol 1,000 mg In 234.831 60.604 Empty Bag 1 bag @ Titrate IV .Q0M [facility] Rx#: [id number] Tube Feeding 364 286 308 Other 90 150 30 Output: Urine 10 8 21 Hemodialysis 3000 2500 Other: Voiding Method Indwelling Catheter Indwelling Catheter Indwelling Catheter # Voids 1 ABP, PAP, CO, CI - Last Documented Arterial Blood Pressure 115/54 - Exam General: [non toxic], [intubated], [appears at stated age] Derm: [warm], [dry] Head: [atraumatic], [normocephalic], [symmetric] Eyes: [EOMI], [no lid lag], [anicteric sclera] Mouth: [no lip lesion], [mucus membranes moist] Cardiovascular: [S1S2 ireg], [tachycardia], [positive DP pulse bilateral], Lungs: [Coarse breath sounds bilaterally], [no rhonchi, no rales] , [no accessory muscle use] Abdominal: [soft], [ nontender to palpation], [no guarding], [no appreciable organomegaly] Ext: [no gross muscle atrophy], [no edema], [no contractures], [right groin dialysis catheter] Neuro: [Unable to determine] Psych: [Unable to determine] - Labs CBC & Chem 7: 06/16/19 05:05 06/16/19 05:05 Labs: Abnormal Lab Results - Last 24 Hours (Table) 06/15/19 06/15/19 06/15/19 Range/Units 17:55 20:30 23:52 WBC 15.8 H (3.8-10.6) k/uL RBC 3.12 L (3.80-5.40) m/uL Hgb 7.2 L (11.4-16.0) gm/dL Hct 23.2 L (34.0-46.0) % MCV 74.4 L (80.0-100.0) fL MCH 23.0 L (25.0-35.0) pg MCHC 30.8 L (31.0-37.0) g/dL RDW 21.1 H (11.5-15.5) % Neutrophils # (Manual) (1.3-7.7) k/uL ABG pH (7.35-7.45) ABG pCO2 (35-45) mmHg ABG pO2 (83-108) mmHg Sodium (137-145) mmol/L Carbon Dioxide (22-30) mmol/L BUN (7-17) mg/dL Creatinine (0.52-1.04) mg/dL Glucose (74-99) mg/dL POC Glucose (mg/dL) 127 H 123 H (75-99) mg/dL Calcium (8.4-10.2) mg/dL 06/16/19 06/16/19 06/16/19 Range/Units 05:05 05:05 05:25 WBC 19.2 H (3.8-10.6) k/uL RBC 3.03 L (3.80-5.40) m/uL Hgb 7.3 L (11.4-16.0) gm/dL Hct 22.6 L (34.0-46.0) % MCV 74.6 L (80.0-100.0) fL MCH 23.9 L (25.0-35.0) pg MCHC (31.0-37.0) g/dL RDW 21.9 H (11.5-15.5) % Neutrophils # (Manual) 17.28 H (1.3-7.7) k/uL ABG pH 7.48 H (7.35-7.45) ABG pCO2 29 L (35-45) mmHg ABG pO2 81 L (83-108) mmHg Sodium 131 L (137-145) mmol/L Carbon Dioxide 21 L (22-30) mmol/L BUN 52 H (7-17) mg/dL Creatinine 2.32 H (0.52-1.04) mg/dL Glucose 119 H (74-99) mg/dL POC Glucose (mg/dL) (75-99) mg/dL Calcium 7.6 L (8.4-10.2) mg/dL 06/16/19 06/16/19 Range/Units 06:44 13:05 WBC (3.8-10.6) k/uL RBC (3.80-5.40) m/uL Hgb (11.4-16.0) gm/dL Hct (34.0-46.0) % MCV (80.0-100.0) fL MCH (25.0-35.0) pg MCHC (31.0-37.0) g/dL RDW (11.5-15.5) % Neutrophils # (Manual) (1.3-7.7) k/uL ABG pH (7.35-7.45) ABG pCO2 (35-45) mmHg ABG pO2 (83-108) mmHg Sodium (137-145) mmol/L Carbon Dioxide (22-30) mmol/L BUN (7-17) mg/dL Creatinine (0.52-1.04) mg/dL Glucose (74-99) mg/dL POC Glucose (mg/dL) 159 H 134 H (75-99) mg/dL Calcium (8.4-10.2) mg/dL Microbiology - Last 24 Hours (Table) 06/10/19 05:40 Blood Culture - Final Blood No Growth after 144 hours Assessment and Plan Assessment: Acute hypoxic respiratory failure with Septic shock secondary to COVID 19 and MRSA pneumonia Acute kidney injury with metabolic acidosis from septic shock requiring dialysis Anemia Hyponatremia AFib with RVR UTI Hypertension Elevated troponin likely demand ischemia Hip tumor Patient was reintubated on 06/08/2018. Chest x-ray shows minimal improvement. Leukocytosis of 24.3-11.4-19.2 with neutrophilia and lymphopenia pointing towards bacterial infection. Sputum culture positive MRSA and Bernadette albicans. Urine culture positive Bernadette albicans. Previous urine culture positive for E. coli. Pro-calcitonin, LDH, ferritin and CRP decreasing. Plans: Continue cefepime. Continue fluconazole. Continue vancomycin. Infectious disease following. Continue trending inflammatory markers. Vent management as per pulmonology. BUN 59-56-52, creatinine 2.16-1.95-2.32. Likely prerenal from septic shock. Plans: Continue calcium acetate. Continue sodium bicarb supplementation. Nephrology following. Dialysis today. Hemoglobin dropped from 9.1-7.4-7.3. No obvious source of bleed. Plans: DC L ovenox and start subcut Heparin. Follow repeat CBC. Sodium 129-131. Likely SIADH. Plans: Fluid restriction. Daily BMP. Plans: Lovenox discontinued due to drop in hemoglobin, continue subcutaneous heparin. Continue Cardizem drip. Maintain potassium greater than 4 and magnesium greater than 2. Follow cardiology recommendations. Telemetry monitoring. Plans: Completed treatment for UTI. BP 109/55. Plans: Lisinopril discontinued for acute kidney injury. Metoprolol discontinued for hypotension. Currently on pressors. Monitor vitals, adjust medications as necessary. Her troponins are flat. Troponin 0.48, 0.195, 0.190. Likely demand ischemia from sepsis. Echocardiogram with no wall motion abnormalities. Plans: Cardiology evaluated, nothing further to do. Plans: Adequate pain management. [Patient continues to be intubated. Vent management per pulmonology. Receiving dialysis. Pulmonology, infectious disease, nephrology, cardiology following. Her prognosis is poor. Attempted to call daughter Dorene for goals of care discussion, went to voicemail.]
--- NOTE | 2019-06-16 17:22 | PN ---
PROGRESS NOTE DATE OF SERVICE: 06/16/2019 REASON FOR FOLLOWUP: Pneumonia. INTERVAL HISTORY: The patient is currently afebrile, the patient is sedated, intubated on the vent. FiO2 is currently 40%, was undergoing dialysis and the patient did not have any good urine output. No worsening diarrhea or any other changes reported by THE nursing staff. PHYSICAL EXAMINATION: Blood pressure is 113/49, pulse of 97, temperature is 97.9, she is 96% on 40% FiO2. General description is an elderly female, lying in bed in no distress. RESPIRATORY SYSTEM: Unlabored breathing, decreased breath sounds at the base. No wheeze. HEART: S1, S2. Regular rate and rhythm. ABDOMEN: Soft. LABS: Hemoglobin is 7.3, white count 19.2, creatinine of 2.32 and the vancomycin is 27. DIAGNOSTIC IMPRESSION/PLAN: Patient with acute respiratory failure which is likely a component of pneumonia, sputum has been MRSA. The patient is covered with vancomycin because of Bactrim and Zyvox cannot be used. Pt with UTI which has been currently covered with Diflucan. Overall prognosis remains to be guarded. Will monitor clinical course closely. MMODL / IJN: [id number] / LOGAN
[2019-06-16] MEDS: NOREPINEPHRINE 8 MG in SODIUM CHLORIDE 0.9% 250 ML IV SCH (17:56)
[2019-06-16 18:02] LABS: Glucose,Whole Blood 129 mg/dL (75-99)
[2019-06-17 00:02] LABS: Glucose,Whole Blood 130 mg/dL (75-99)
[2019-06-17] MEDS: DILTIAZEM 125 MG in SODIUM CHLORIDE 0.9% 100 ML IV SCH ×2 (02:31→23:25)
[2019-06-17 04:50] LABS: Anisocytosis Moderate; HCT 20.6 % (34.0-46.0); Hypochromasia Marked; MCH 23.5 pg (25.0-35.0); MCHC 30.7 g/dL (31.0-37.0); MCV 76.4 fL (80.0-100.0); Mean Platelet Volume 10.5; Microcytosis Moderate; Platelet Count 243 k/uL (150-450); Poikilocytosis Slight; RBC 2.69 m/uL (3.80-5.40); RDW 23.2 % (11.5-15.5)
[2019-06-17 05:07] LABS: Albumin 2.1 g/dL (3.5-5.0); Calcium 7.9 mg/dL (8.4-10.2); Phosphorus 4.8 mg/dL (2.5-4.5); Total Bilirubin 0.3 mg/dL (0.2-1.3); Total Protein 4.1 g/dL (6.3-8.2)
[2019-06-17 05:08] LABS: Potassium 3.5 mmol/L (3.5-5.1)
[2019-06-17 05:16] LABS: HGB 6.3 gm/dL (11.4-16.0)
[2019-06-17 05:18] LABS: ABG Base Excess -0.9 mmol/L; ABG HCO3 23 mmol/L (21-25); ABG Oxygen Saturation 98.2 % (94-97); ABG PCO2 30 mmHg (35-45); ABG PH 7.48 (7.35-7.45); ABG PO2 101 mmHg (83-108); ABG TCO2 24 mmol/L (19-24); Allen Test Performed? Yes
[2019-06-17 05:40] LABS: Large Platelets Present; Lymphocytes # (M) 0.94 k/uL (1.0-4.8); Monocytes # (M) 0.62 k/uL (0-1.0); Neutrophils # (M) 14.04 k/uL (1.3-7.7); Neutrophils % (M) 90 %; Nucleated Red Blood Cells 7 /100 WBC (0-0); Total Cells Counted 200; WBC 15.6 k/uL (3.8-10.6)
[2019-06-17 05:42] LABS: Ovalocytes Present; Tear Drop Cells Present
[2019-06-17] MEDS: INSULIN ASPART (NovoLOG) 100 UNIT/ML VIAL SQ SCH ×3 (06:38→18:37)
[2019-06-17 06:44] LABS: Glucose,Whole Blood 128 mg/dL (75-99)
[2019-06-17] MEDS: CALCIUM ACETATE 667 MG TAB PO SCH ×3 (06:46→16:44)
--- NOTE | 2019-06-17 07:15 | XR ---
EXAMINATION TYPE: XR chest 1V portable DATE OF EXAM: 06/17/2019 COMPARISON: 06/16/2019 INDICATION: Previous abnormal chest TECHNIQUE: Single frontal view of the chest is obtained. FINDINGS: The heart size is normal. The pulmonary vasculature is normal. There is patchy infiltrate diffusely throughout the bilateral lung [place]. This may be more focal in the left lower lobe. Small nodular densities in the left apex. Left basilar nodule is not identified at this time. Endotracheal tube tip is above the aung. Left central venous catheter tip is in the proximal right atrium. Nasogastric tube tip is within the left upper quadrant of the abdomen. IMPRESSION: 1. Stable to slight improvement of a diffuse lung infiltrate. 2. Lines and catheters discussed above
[2019-06-17] MEDS: ALBUTEROL HFA INHALER INHALATION PRN ×4 (07:24→20:02)
[2019-06-17] MEDS: PANTOPRAZOLE 40 MG/10 ML VIAL IVP SCH (08:37)
[2019-06-17] MEDS: SODIUM BICARBONATE TAB 650 MG TAB PO SCH (08:37)
[2019-06-17] MEDS: ASPIRIN 81 MG PO SCH (08:37)
[2019-06-17] MEDS: CHLORHEXIDINE GLUCONATE 15 ML CUP MUCOUS MEM SCH ×2 (08:37→20:13)
[2019-06-17] MEDS: FLUCONAZOLE IN NACL,ISO-OSM 100 MG in SALINE 1 50ML.BAG IVPB SCH (08:37)
[2019-06-17] MEDS: predniSONE 20 MG TAB PO SCH (08:38)
[2019-06-17] MEDS: PARoxetine 10 MG TAB PO SCH (08:38)
[2019-06-17] MEDS: ZINC SULFATE 220 MG CAP PO SCH (08:38)
[2019-06-17] MEDS: ASCORBIC ACID 500 MG TAB PO SCH ×2 (08:38→20:13)
[2019-06-17] MEDS: HEPARIN SODIUM,PORCINE 5,000 UNIT/ML 1 ML VIAL SQ SCH ×3 (08:38→23:15)
[2019-06-17] MEDS: CEFEPIME 2 GM in SODIUM CHLORIDE 0.9% 100 ML IVPB SCH (09:47)
[2019-06-17 11:38] LABS: Glucose,Whole Blood 172 mg/dL (75-99)
--- NOTE | 2019-06-17 12:59 | P.PN ---
Subjective Progress Note Date: 06/17/19 This is a 78-year-old female patient with respiratory failure secondary to Coumadin 19 related pneumonia. A short initially admitted on 05/26/2019 for a UTI and Covid pneumonia. Her initial urine cultures came back positive for E. coli. At the later stage, she was found to have a Covid 19 pneumonia with pulmonary complications. The patient remains in the intensive care unit intubated on a mechanical ventilator. Note that the patient was intubated on 05/31/2019. She was extubated on 06/04/2019. However on 06/09/2019 the patient worsening hypoxemia and she had to be reintubated and placed on mechanical ventilator. She also developed a septic shock related to an MRSA pneumonia. His sputum culture from 06/08/2019 was positive for MRSA. She has other ongoing issues for now including acute kidney injury and the patient remains anuric receiving hemodialysis. The patient also developed an acute non-STEMI with a troponin maxed at 0.4 started on a combination of aspirin and heparin treating an acute non-ST segment elevation myocardial infarction. The patient remains sedated and paralyzed. She is on propofol and Pneumovax. She remains on a mechanical ventilator with assist control mode with a rate of 30, tidal volume 350 and FiO2 40% with a PEEP of 15. She remains on broad-spectrum antibiotics and current antibiotic coverage includes IV cefepime and vancomycin. Diflucan was also added at the sputum was positive for Bernadette multiple occasions. She is also receiving hydroxychloroquine regarding the Covid 19 pneumonia. She is on IV Solu-Medrol 40 mg every 12 hours. She is still hypotensive requiring norepinephrine infusion for blood pressure support and he was being titrated according to the patient's BP response. Note that the patient was started on dialysis for acute kidney injury on 06/11/2019. She has a temporary dialysis catheter inserted. She 2 sessions of hemodialysis since yesterday. She is not producing any urine for now. Note that along with a septic shock, the patient developed severe leukocytosis. White cell count was high as 90.6. It has gradually improved over the past few days. On today's evaluation of 06/14/2019, the patient remains on propofol at 75 g and the patient was taken off the Nimbex. The patient remains on essentially the same ventilator settings which include a tidal volume of 350 with a PEEP of 10 and FiO2 of 40% with a tidal volume of 350 and the respiratory rate of 30. The morning blood gases showed a pH of 7.19 with a pCO2 of 46 and pO2 of 83. The patient seems to have compliant lungs and the patient was requesting higher volumes. For that reason, I increased the tidal volume of 03/30/1947. I do not to be down to 8. I started the patient was also riding the mechanical ventilator at the rate of 30 and I dropped a respiratory rate down to 22. Her chest x-ray was showing some improvement in the pneumonia. There is still feasible breast in the lung bases consistent with infiltration. The patient is still receiving enteral feeding for nutritional support. The patient as mentioned has Covid 19 infection and a bacterial pneumonia in the form of MRSA. We are somewhat inclined not to give Actemra. The interleukin level from few days ago was 56. The patient has developed an acute kidney injury. The patient is producing minimal amount of urine output and she is going to undergo dialysis today. The net fluid balance is +1.8 and 2.7 L over the past 24 hours. . On today's evaluation of 06/15/2019, the patient is being seen in follow-up in the intensive care unit. This morning, the patient remains of Nimbex. The patient is sedated with propofol running at 65 g per KG per minute. The patient is also on Cardizem at 7.5 mg an hour. The patient remains on assist control mode of ventilation. She is at the rate of 22 with a tidal volume of 500 and FiO2 of 40% with a PEEP of 5. The peak pressures 22. The static airway pressure is 11. The patient's blood gas showed a pH of 7.43 with a pCO2 of 28 and pO2 of 76. The patient a follow-up chest x-ray that showed diffuse patchy breath and pulmonary infiltrates, essentially stable compared to yesterday. Endotracheal tube was seen around 1.5 cm above the aung. The plan is to undergo another session of hemodialysis today. The patient has diffuse edema and third spacing all 4 extremities specially in the legs and the patient has been in a significant amount of fluid balance positivity. The patient underwent hemodialysis yesterday. The white cell count is at 11.4. Hemoglobin is at 7.4. The patient's sodium level is at 129. BUN is 56 with a creatinine of 1.9. The LDH level has declined down to 564. The CRP level is down to 15.2. The white cell count is also improved down to 11.4 and the patient's pro-calcitonin level is also improving. As such, the septic bacterial pneumonia has been improving with improvement in hemodynamics and improvement in the pro-calcitonin level and white count. On 06/16/2019, the patient is being seen in follow-up in the intensive care unit. This morning, the patient is been taken off sedation and the patient is being given a sedation holiday. At the time of my evaluation, she was still very much some limited and sleepy and sedated and the patient was not following any commands nor she wasn't withdrawing to any painful stimulation. I requested to keep the patient off propofol for now. She remains on Cardizem at 7.5 mg an hour to control her atrial fibrillation. She remains on a mechanical ventilator with essentially the same ventilator settings which included control of 22, tidal volume of 350, FiO2 of 40% and a PEEP of 5. Peak and static airway pressures are not elevated PA chest x-ray shows stable about pulmonary infiltrates dated to Covid 19 related pneumonia in addition to a superimposed bacterial pneumonia which improved clinically. Mother the patient is afebrile. The patient's white cell count is improved. The patient's pro-calcitonin level is declining is down to 12.2. Also, the patient's blood. Showed a pH of 7.48 with a pCO2 of 29 and pO2 of 81 is with an FiO2 of 40%. The patient is still on examination antibiotics patient is receiving cefepime and vancomycin and Diflucan. She remains on vitamin AF which is running at 26 an hour for enteral feeding and nutritional support. She is undergoing daily dialysis. Her fluid balance is been negative as the patient has been essentially undergoing daily dialysis with ultrafiltration. The plan is to proceed another session of dialysis today. Her current weight is 86 kg which is 1 kg less compared to yesterday. Had extremity edema is also improving. She is afebrile for now. On 06/17/2019 and seeing the patient in follow-up. The patient was taken off sedation since yesterday and the patient of sedation this morning also. As such the patient has been off sedation for around 24 hours. She is able to respond to some simple commands and she is able to nod her head and regular still wasn't fingers to request. Nevertheless, she is unable to raise her arms or legs or raise head of the bed. We have decided to keep it off sedation for now. She is undergoing hemodialysis this morning. She remains on a mechanical ventilator. She is an assist-control mode at the rate of 22 with a tidal volume of 500 and FiO2 of 40% with a PEEP of 5. The left ear showed a pH of 7.48 with a pCO2 of 30 and pO2 of 11. She is on a Cardizem drip at 7.5 mg an hour. She is levo fed for now. She remains on cefepime and Diflucan and vancomycin. As stated earlier the patient was treated for a MRSA pneumonia that complicated Covid 19 related pneumonia. The most recent random vancomycin level from yesterday was 27.4. The patient otherwise is doing well. The morning hemoglobin was at 6.3 and the patient received a unit of packed RBC. Morning blood gases in the above-mentioned vent setting showed a pH of 7.48 with a pCO2 of 30 and pO2 of 11. The chest x-ray from this morning showed a stable bilateral pulmonary infiltrates although slightly improved compared to yesterday's chest x-ray and t he tubes and lines were all in place. The patient is afebrile. The goal is to do some further ultrafiltration as the patient is still significant signs of fluid overload. Furthermore, will communicate with the family and according to them the patient did not want any long-term ventilator support such as tracheostomy and if she fails extubation the plan is not to reintubate based on the patient's and the family's wishes. Objective - Vital Signs Vital signs: Vital Signs Temp 97.8 F 06/17/19 11:42 Pulse 117 H 06/17/19 11:42 Resp 32 H 06/17/19 11:42 BP 103/57 06/17/19 11:42 Pulse Ox 98 06/17/19 10:20 Intake & Output 06/16/19 06/17/19 06/17/19 18:59 06:59 18:59 Intake Total 734.82 623 342 Output Total 2521 10 2200 Balance -1786.18 643 -9360 Weight 86.1 kg 85.8 kg 85.8 kg Intake: IV 160 137 11 Normal Saline Pressure 60 72 6 Bag Sodium Chloride 0.9% 1, 100 65 5 000 ml @ 20 mls/hr IV . Q24H [facility]ENDI Rx#:[id number] Intake, IV Titration 52.82 0 Amount Norepinephrine 8 mg In 52.82 0 Sodium Chloride 0.9% 250 ml @ 0.05 MCG/KG/MIN 7. 153 mls/hr IV .Q24H [facility]ENDI Rx#:[id number] Tube Feeding 392 336 21 Blood Product 310 Rc As-1 Unit 310 [id number] Other 130 150 Output: Urine 21 10 0 Hemodialysis 2500 2200 Other: Voiding Method Indwelling Catheter Indwelling Catheter # Voids 1 ABP, PAP, CO, CI - Last Documented Arterial Blood Pressure 150/46 - Exam GENERAL EXAM: 78-year-old female patient, intubated, sedated on mechanical ventilator. The patient is off sedation the patient is opening her eyes and some response to simple commands also noted on today's evaluation . HEAD: Normocephalic/atraumatic. EYES: Normal reaction of pupils, equal size. Conjunctiva pink, sclera white. NOSE: Clear with pink turbinates. THROAT: No erythema or exudates. NECK: No masses, no JVD, no thyroid enlargement, no adenopathy. CHEST: No chest wall deformity. Symmetrical expansion. LUNGS: Equal air entry with crackles in the bilateral posterior bases. CVS: Regular rate and rhythm, normal S1 and S2, no gallops, no murmurs, no rubs ABDOMEN: Soft, nontender. No hepatosplenomegaly, normal bowel sounds, no guarding or rigidity. EXTREMITIES: No clubbing, significant edema in all 4 extremities, no cyanosis, 2+ pulses and upper and lower extremities. The patient is dialysis catheter in the right groin area. MUSCULOSKELETAL: Muscle strength and tone normal. SPINE: No scoliosis or deformity SKIN: No rashes CENTRAL NERVOUS SYSTEM: Intubated, opening up her eyes and following some simple commands as stated. She has significant motor weakness in all 4 extremities. Unable to raise her arms and legs against gravity. - Labs CBC & Chem 7: 06/17/19 04:30 06/17/19 04:30 Labs: Abnormal Lab Results - Last 24 Hours (Table) 06/16/19 06/16/19 06/16/19 Range/Units 13:05 18:01 23:50 WBC (3.8-10.6) k/uL RBC (3.80-5.40) m/uL Hgb (11.4-16.0) gm/dL Hct (34.0-46.0) % MCV (80.0-100.0) fL MCH (25.0-35.0) pg MCHC (31.0-37.0) g/dL RDW (11.5-15.5) % Neutrophils # (Manual) (1.3-7.7) k/uL Lymphocytes # (Manual) (1.0-4.8) k/uL Nucleated RBCs (0-0) /100 WBC ABG pH (7.35-7.45) ABG pCO2 (35-45) mmHg ABG O2 Saturation (94-97) % Sodium (137-145) mmol/L BUN (7-17) mg/dL Creatinine (0.52-1.04) mg/dL Glucose (74-99) mg/dL POC Glucose (mg/dL) 134 H 129 H 130 H (75-99) mg/dL Calcium (8.4-10.2) mg/dL Phosphorus (2.5-4.5) mg/dL Total Protein (6.3-8.2) g/dL Albumin (3.5-5.0) g/dL Crossmatch 06/17/19 06/17/19 06/17/19 Range/Units 04:30 04:30 05:15 WBC 15.6 H (3.8-10.6) k/uL RBC 2.69 L (3.80-5.40) m/uL Hgb 6.3 L* (11.4-16.0) gm/dL Hct 20.6 L (34.0-46.0) % MCV 76.4 L (80.0-100.0) fL MCH 23.5 L (25.0-35.0) pg MCHC 30.7 L (31.0-37.0) g/dL RDW 23.2 H (11.5-15.5) % Neutrophils # (Manual) 14.04 H (1.3-7.7) k/uL Lymphocytes # (Manual) 0.94 L (1.0-4.8) k/uL Nucleated RBCs 7 H (0-0) /100 WBC ABG pH 7.48 H (7.35-7.45) ABG pCO2 30 L (35-45) mmHg ABG O2 Saturation 98.2 H (94-97) % Sodium 135 L (137-145) mmol/L BUN 49 H (7-17) mg/dL Creatinine 2.28 H (0.52-1.04) mg/dL Glucose 119 H (74-99) mg/dL POC Glucose (mg/dL) (75-99) mg/dL Calcium 7.9 L (8.4-10.2) mg/dL Phosphorus 4.8 H (2.5-4.5) mg/dL Total Protein 4.1 L (6.3-8.2) g/dL Albumin 2.1 L (3.5-5.0) g/dL Crossmatch 06/17/19 06/17/19 06/17/19 Range/Units 05:40 06:32 11:36 WBC (3.8-10.6) k/uL RBC (3.80-5.40) m/uL Hgb (11.4-16.0) gm/dL Hct (34.0-46.0) % MCV (80.0-100.0) fL MCH (25.0-35.0) pg MCHC (31.0-37.0) g/dL RDW (11.5-15.5) % Neutrophils # (Manual) (1.3-7.7) k/uL Lymphocytes # (Manual) (1.0-4.8) k/uL Nucleated RBCs (0-0) /100 WBC ABG pH (7.35-7.45) ABG pCO2 (35-45) mmHg ABG O2 Saturation (94-97) % Sodium (137-145) mmol/L BUN (7-17) mg/dL Creatinine (0.52-1.04) mg/dL Glucose (74-99) mg/dL POC Glucose (mg/dL) 128 H 172 H (75-99) mg/dL Calcium (8.4-10.2) mg/dL Phosphorus (2.5-4.5) mg/dL Total Protein (6.3-8.2) g/dL Albumin (3.5-5.0) g/dL Crossmatch See Detail Assessment and Plan Plan: 1 Acute hypoxemic and hypercapnic respiratory failure related to acute COVID 19 related pneumonia, chest x-ray on 05/31/2019 showed progressive worsening of the multifocal interstitial and alveolar opacities most pronounced in the right midlung. Patient required intubation and placement on mechanical ventilator on 05/31/2019, she was successfully weaned and extubated on 06/04/2019. However today on 06/09/2019 patient has developed a worsening hypoxemia, and she developed bilateral pneumonia with septic shock. On 06/17/2019, the patient remains on a mechanical ventilator. She was extubated following a Covid 19 related pneumonia and subsequent she developed an MRSA pneumonia for which she was treated. During the course of her treatment s he was treated for septic shock. She also became dialysis dependent. Currently, she is been off sedation for the past 24 hours. She is extremely weak. Weaning parameters are poor. There is going to monitored regularly and will decide at a later stage she is a candidate for any further weaning or weaning trials. For now, the patient is undergoing hemodialysis and the plan is to proceed with ultrafiltration. Continue same antibiotic coverage and IDs on the case. She is hemodynamically stable for now. I think overall generalized weakness and debility may be effective in preventing this patient from weaning off the mechanical ventilator. Her chest x-ray shows some slight improvement. The patient is receiving supportive. She is receiving enteral feeding for nutritional support. 2 Septic shock related to MRSA pneumonia. Current coverage includes cefepime, and vancomycin. Patient required re-intubation and placement on mechanical ventilation on 06/09/2019. The septic shock is improved and the patient is currently hemodynamically stable 3 acute kidney injury secondary to sepsis and septic shock. the patient is not producing any urine output and she is dialysis dependent. The nephrology is on the case. She has a temporary dialysis catheter in the patient is requiring daily hemodialysis. Dialysis session of dialysis was done today in the intensive care unit. 4 severe leukocytosis secondary to septic shock, improved, the patient is currently hemodynamically stable 5 A. fib with RVR related to sepsis, the rate is better controlled on Cardizem drip at 7.5 mg an hour 6 acute non-STEMI with elevation of troponins, remains on aspirin 81 mg 7 acute bilateral Covid 19 pneumonia with secondary elevation of the LDH, ferritin related to COVID 19 infectionmy treated with Plaquenil and zinc sulfate, and inflammatory markers including the LDH and the ferritin the CRP levels improved/improving 8 hypertensive heart disease with a concentric LVH and an ejection fraction of 55-60% with secondary pulmonary hypertension with a PA pressure of 54 based on echocardiogram from early May 2019 9 Acute urinary tract infection, related to E. coli, This was diagnosed at time of admission and his been well treated 10 History of hypertension 11 Depression 12 Recent history of large soft tissue mass involving the posterior right hip status post biopsy, results are pending 13 Previous history of chronic tobacco dependence Plan Proceed with dialysis today and the goal is to do adequate ultrafiltration. Continue vent support, no vent changes on today's evaluation. We'll check weaning parameters as the patient arouses further and decided the patient is a candidate for any further weaning a spontaneous breathing trials. On today's evaluation, she looks quite weak and not ready for any further weaning trials. Continue vital AF for enteral nutrition We'll keep the patient off sedation keep the cefepime and vancomycin and the patient is also on Diflucan. Prednisone burst taper starting with 20 mg by mouth daily Lovenox for DVT prophylaxis Had a lengthy discussion with the patient's family. No plans for long-term mechanical ventilation. No plans for intubation if the patient failed an extubation trial. As such her CODE STATUS is DO NOT RESUSCITATE. We'll continue to follow we'll continue the supportive care for now. Condition is critical.This evaluation was done and more than 30 minutes Time with Patient: Greater than 30
--- NOTE | 2019-06-17 15:18 | PN ---
PROGRESS NOTE Patient is seen for followup for acute kidney injury. Patient is maintained on daily dialysis, mainly for ultrafiltration. She continues to have no urine output. We were able to get about 2.5 L yesterday and about 2.2 L today. Her catheter has had issues with decreased flows, particularly when the blood pressure drops. Patient remains on the vent. FiO2 is at 40%. This morning blood pressure was 101/51, heart rate 117 per minute. Patient is off the sedation. She remains on the vent. Minimal movements. It appears that patient does comprehend, but she appears to be quite weak, per nursing staff. Patient is tolerating tube feedings. No significant edema noted in her lower extremities. Labs show hemoglobin 6.3, sodium 135, potassium 3.5, BUN 49, creatinine 2.28. ASSESSMENT: 1. Acute kidney injury, acute tubular necrosis, associated with COVID-19 infection, currently dialysis-dependent, mainly for fluid overload. Patient has no urine output. Her creatinine, however, is not significantly elevated. Today she had only ultrafiltration and no dialysis. If family would like to proceed with aggressive medical treatment and if plans are to continue with dialysis, we should obtain an IJ PermCath for dialysis. Patient has had significant oozing and bleeding from her lines. 2. Anemia. No GI bleed noted. Continuous oozing from all IVs. 3. Hypoxic respiratory failure. Patient remains on the vent. 4. Volume overload, receiving daily dialysis. Today we only did ultrafiltration of about 2.2 L. 5. COVID-19 pneumonia. PLAN: Repeat dialysis/ultrafiltration tomorrow. Obtain IJ catheter if there are plans to continue with renal replacement therapy. Discontinue the oral sodium bicarb. MMODL / IJN: [id number] /
[2019-06-17] MEDS: NOREPINEPHRINE 8 MG in SODIUM CHLORIDE 0.9% 250 ML IV SCH (15:42)
--- NOTE | 2019-06-17 16:54 | P.PN ---
Subjective Progress Note Date: 06/17/19 Principal diagnosis: COVID pneumonia 78-year-old female with PMH of hypertension presented to the ED for epigastric discomfort and intractable nausea and vomiting. In the ED, she was noted to have an elevated troponin of 0.418 with T-wave inversions on EKG. She was started on aspirin and heparin drip and was admitted for non-ST elevation NV. On 05/27/2019 she was noted to have spiked a fever thought to be possibly related to UTI or COVID 19 infection. Troponins were trended which went from 0.195-0.190. Her troponins were related to demand ischemia probably from sepsis . Influenza A and B was negative. Urine culture did come back positive for E. coli that was sensitive to Rocephin. COVID testing was subsequently positive. She was initiated on hydroxychloroquine, azithromycin, Rocephin, zinc and vitamin C. Infectious disease was consulted and discontinued her Rocephin and azithromycin. Echocardiogram was done which showed an EF of 55-60%. Her respiratory status worsened and to 05/31/2019. Her oxygen requirements increased from 8 L nasal cannula to 15 L high flow. It was noted that she was DO NOT RESUSCITATE and DO NOT INTUBATE. I had a long conversation with the patient and she was agreeable for intubation. Pulmonology was consulted and she was moved to the ICU for elective intubation. Sedation holiday was attempted on June 01 and June 02. She did have diarrhea for which she was given cholestyramine, C. diff was negative. Patient was extubated on 06/04/2019. She did go into atrial flutter on telemetry on 06/04/2019 for which she was started on therapeutic Lovenox by cardiology. Her Rocephin was started on 06/05/2019 for total of 3 doses to treat UTI. Her respiratory status continued to worsen after extubation patient was reintubated on 06/09/2019. On June 09 patient was noted to be in A. fib with rate of 103-120 bpm for which she was started on Cardizem drip. Patient required pressors to maintain BP and was started on norepinephrine IV. Vancomycin was added to her medication regimen of cefepime and hydroxychloroquine was restarted for worsening leukocytosis and inflammatory markers. Urine, blood and sputum cultures were collected. Sputum culture grew MRSA and Bernadette albicans. Her urine culture grew bernadette albicans and she was started on Fluconazole IV. Her renal function and urine production continued to worsen and nephrology was consulted. Dialysis catheter was placed on 06/11/2019 and dialysis was initiated. Patient underwent sedation holiday on June 14 and , she has been minimally responsive and unable to follow commands up until this time. Her condition continues to remain critical. Patient was seen and examined. Patient minimally responsive and following simple commands off sedation. Appears to be considerably weak. Rate of 22. Tidal volume 500. FiO2 40%. PEEP of 5. Chest x-ray shows improved bibasilar reticular interstitial airspace disease. Hemoglobin dropped to 6.3, 1 unit PRBC ordered. Sodium improving to 135. Leukocytosis, CRP and LDH improving. Objective - Vital Signs Vital signs: Vital Signs Temp 98.2 F 06/17/19 12:00 Pulse 98 06/17/19 15:00 Resp 22 06/17/19 15:00 BP 103/57 06/17/19 11:42 Pulse Ox 96 06/17/19 15:00 Intake & Output 06/16/19 06/17/19 06/17/19 18:59 06:59 18:59 Intake Total 734.82 623 936.041 Output Total 2521 10 2200 Balance -1786.18 613 -1263.959 Weight 86.1 kg 85.8 kg 85.8 kg Intake: IV 160 137 349 Cefepime 2 gm In Sodium 100 Chloride 0.9% 100 ml @ 200 mls/hr IVPB Q24HR [facility] Rx#:[id number] Fluconazole in NaCl,Iso- 50 Osm 100 mg In Saline 1 50ml.bag @ 50 mls/hr IVPB DAILY [facility] Rx#:[id number] Normal Saline Pressure 60 72 54 Bag Sodium Chloride 0.9% 1, 100 65 145 000 ml @ 20 mls/hr IV . Q24H [facility] Rx#:[id number] Intake, IV Titration 52.82 28.041 Amount Norepinephrine 8 mg In 52.82 28.041 Sodium Chloride 0.9% 250 ml @ 0.05 MCG/KG/MIN 7. 153 mls/hr IV .Q24H [facility] Rx#:[id number] Tube Feeding 392 336 189 Blood Product 310 Rc As-1 Unit 310 [id number] Other 130 150 60 Output: Urine 21 10 0 Hemodialysis 2500 2200 Other: Voiding Method Indwelling Catheter Indwelling Catheter # Voids 1 ABP, PAP, CO, CI - Last Documented Arterial Blood Pressure 118/46 - Exam General: [non toxic], [intubated], [appears at stated age] Derm: [warm], [dry] Head: [atraumatic], [normocephalic], [symmetric] Eyes: [EOMI], [no lid lag], [anicteric sclera] Mouth: [no lip lesion], [mucus membranes moist] Cardiovascular: [S1S2 ireg], [tachycardia], [positive DP pulse bilateral], Lungs: [Coarse breath sounds bilaterally], [no rhonchi, no rales] , [no accessory muscle use] Abdominal: [soft], [ nontender to palpation], [no guarding], [no appreciable organomegaly] Ext: [no gross muscle atrophy], [no edema], [no contractures], [right groin dialysis catheter] Neuro: [Unable to determine] Psych: [Unable to determine] Patient is minimally responsive when calling her name. Unable to follow com mands. Appears extremely weak - Labs CBC & Chem 7: 06/17/19 04:30 06/17/19 04:30 Labs: Abnormal Lab Results - Last 24 Hours (Table) 06/16/19 06/16/19 06/17/19 Range/Units 18:01 23:50 04:30 WBC 15.6 H (3.8-10.6) k/uL RBC 2.69 L (3.80-5.40) m/uL Hgb 6.3 L* (11.4-16.0) gm/dL Hct 20.6 L (34.0-46.0) % MCV 76.4 L (80.0-100.0) fL MCH 23.5 L (25.0-35.0) pg MCHC 30.7 L (31.0-37.0) g/dL RDW 23.2 H (11.5-15.5) % Neutrophils # (Manual) 14.04 H (1.3-7.7) k/uL Lymphocytes # (Manual) 0.94 L (1.0-4.8) k/uL Nucleated RBCs 7 H (0-0) /100 WBC ABG pH (7.35-7.45) ABG pCO2 (35-45) mmHg ABG O2 Saturation (94-97) % Sodium (137-145) mmol/L BUN (7-17) mg/dL Creatinine (0.52-1.04) mg/dL Glucose (74-99) mg/dL POC Glucose (mg/dL) 129 H 130 H (75-99) mg/dL Calcium (8.4-10.2) mg/dL Phosphorus (2.5-4.5) mg/dL Total Protein (6.3-8.2) g/dL Albumin (3.5-5.0) g/dL Crossmatch 06/17/19 06/17/19 06/17/19 Range/Units 04:30 05:15 05:40 WBC (3.8-10.6) k/uL RBC (3.80-5.40) m/uL Hgb (11.4-16.0) gm/dL Hct (34.0-46.0) % MCV (80.0-100.0) fL MCH (25.0-35.0) pg MCHC (31.0-37.0) g/dL RDW (11.5-15.5) % Neutrophils # (Manual) (1.3-7.7) k/uL Lymphocytes # (Manual) (1.0-4.8) k/uL Nucleated RBCs (0-0) /100 WBC ABG pH 7.48 H (7.35-7.45) ABG pCO2 30 L (35-45) mmHg ABG O2 Saturation 98.2 H (94-97) % Sodium 135 L (137-145) mmol/L BUN 49 H (7-17) mg/dL Creatinine 2.28 H (0.52-1.04) mg/dL Glucose 119 H (74-99) mg/dL POC Glucose (mg/dL) (75-99) mg/dL Calcium 7.9 L (8.4-10.2) mg/dL Phosphorus 4.8 H (2.5-4.5) mg/dL Total Protein 4.1 L (6.3-8.2) g/dL Albumin 2.1 L (3.5-5.0) g/dL Crossmatch See Detail 04/23/20 04/23/20 Range/Units 06:32 11:36 WBC (3.8-10.6) k/uL RBC (3.80-5.40) m/uL Hgb (11.4-16.0) gm/dL Hct (34.0-46.0) % MCV (80.0-100.0) fL MCH (25.0-35.0) pg MCHC (31.0-37.0) g/dL RDW (11.5-15.5) % Neutrophils # (Manual) (1.3-7.7) k/uL Lymphocytes # (Manual) (1.0-4.8) k/uL Nucleated RBCs (0-0) /100 WBC ABG pH (7.35-7.45) ABG pCO2 (35-45) mmHg ABG O2 Saturation (94-97) % Sodium (137-145) mmol/L BUN (7-17) mg/dL Creatinine (0.52-1.04) mg/dL Glucose (74-99) mg/dL POC Glucose (mg/dL) 128 H 172 H (75-99) mg/dL Calcium (8.4-10.2) mg/dL Phosphorus (2.5-4.5) mg/dL Total Protein (6.3-8.2) g/dL Albumin (3.5-5.0) g/dL Crossmatch Assessment and Plan Assessment: Acute hypoxic respiratory failure with Septic shock secondary to COVID 19 and MRSA pneumonia Acute kidney injury with metabolic acidosis from septic shock requiring dialysis Anemia Hyponatremia AFib with RVR UTI Hypertension Elevated troponin likely demand ischemia Hip tumor Patient was reintubated on 06/08/2018. Chest x-ray shows minimal improvement. Leukocytosis of 24.3-11.4-19.2- with neutrophilia and lymphopenia pointing towards bacterial infection. Sputum culture positive MRSA and Bernadette albicans. Urine culture positive Bernadette albicans. Previous urine culture positive for E. coli. Pro-calcitonin, LDH, ferritin and CRP decreasing. Plans: Continue cefepime. Continue fluconazole. Continue vancomycin. Infectious disease fo llowing. Continue trending inflammatory markers. Vent management as per pulmonology. BUN 59-49, creatinine 2.16-1.95-2.32-2.28. Likely prerenal from septic shock. Plans: Continue calcium acetate. Continue sodium bicarb supplementation. Nephrology following. Dialysis today. Hemoglobin dropped from 9.1-7.4-7.3-6.3. No obvious source of bleed. Plans: 1 PRBC today. DC Lovenox and start subcut Heparin. Follow repeat CBC. Sodium 129-131-135. Likely SIADH. Plans: Fluid restriction. Daily BMP. Improving Plans: Lovenox discontinued due to drop in hemoglobin, continue subcutaneous heparin. Continue Cardizem drip. Maintain potassium greater than 4 and magnesium greater than 2. Follow cardiology recommendations. Telemetry monitoring. Plans: Completed treatment for UTI. BP 129/45. Plans: Lisinopril discontinued for acute kidney injury. Metoprolol discontinued for hypotension. Currently on pressors. Monitor vitals, adjust medications as necessary. Her troponins are flat. Troponin 0.48, 0.195, 0.190. Likely demand ischemia from sepsis. Echocardiogram with no wall motion abnormalities. Plans: Cardiology evaluated, nothing further to do. Plans: Adequate pain management. [Patient continues to be intubated. Vent management per pulmonology. Receiving dialysis. Pulmonology, infectious disease, nephrology, cardiology following. Her prognosis is poor. Case discussed with Dr. Neal.]
[2019-06-17 17:39] LABS: Glucose,Whole Blood 105 mg/dL (75-99)
--- NOTE | 2019-06-17 18:14 | PN ---
PROGRESS NOTE DATE OF SERVICE: 06/17/2019 REASON FOR FOLLOWUP: Pneumonia. INTERVAL HISTORY: The patient is currently afebrile. The patient remains intubated on the vent. FiO2 is currently at 40%. No significant purulent secretion or any diarrhea reported by the nursing staff. PHYSICAL EXAMINATION: Blood pressure 129/45 with a pulse of 104, temperature 98.2. She is 98% on 40% FiO2. General description is an elderly female intubated on the vent. RESPIRATORY SYSTEM: Unlabored breathing with decreased breath sounds at the base. No wheeze. HEART: S1, S2. Regular rate and rhythm. ABDOMEN: Soft. No tenderness. LABS: Hemoglobin 6.3, white count 15.7, BUN of 49, creatinine 2.28. DIAGNOSTIC IMPRESSION AND PLAN: 1. Patient with acute respiratory failure which is multifactorial in this patient who did have a component of pneumonia. Sputum has been finalized with MRSA. Patient is covered with vancomycin, Pharmacy to dose; to continue while watching her kidney function closely. 2. Positive urine culture. Covered with Diflucan. Will monitor her clinical course closely. Overall prognosis remains guarded. MMODL / IJN: [id number] /
[2019-06-17 20:48] LABS: Anisocytosis Moderate; HCT 26.4 % (34.0-46.0); Hypochromasia Moderate; MCH 25.4 pg (25.0-35.0); MCHC 31.5 g/dL (31.0-37.0); MCV 80.7 fL (80.0-100.0); Mean Platelet Volume 10.4; Microcytosis Slight; Platelet Count 245 k/uL (150-450); Poikilocytosis Moderate; RBC 3.28 m/uL (3.80-5.40); RDW 22.6 % (11.5-15.5)
[2019-06-17 20:53] LABS: HGB 8.3 gm/dL (11.4-16.0)
[2019-06-17 21:19] LABS: Band Neutrophils % 3 %; Neutrophils % (M) 87 %; Nucleated Red Blood Cells 6 /100 WBC (0-0); Total Cells Counted 200
[2019-06-17 21:20] LABS: Eosinophils # (M) 0.63 k/uL (0-0.7); Lymphocytes # (M) 1.05 k/uL (1.0-4.8); Monocytes # (M) 0.63 k/uL (0-1.0); WBC 20.9 k/uL (3.8-10.6)
[2019-06-17 21:21] LABS: Polychromasia Present
[2019-06-17 21:22] LABS: Ovalocytes Present; Poikilocytosis (M) Present; Tear Drop Cells Present
[2019-06-17 23:49] LABS: Glucose,Whole Blood 106 mg/dL (75-99)
[2019-06-18] MEDS: INSULIN ASPART (NovoLOG) 100 UNIT/ML VIAL SQ SCH ×4 (00:22→19:04)
[2019-06-18] MEDS: hydrALAZINE HCL 20 MG/ML 1 ML VIAL IVP PRN (02:01)
[2019-06-18 05:04] LABS: Anisocytosis Moderate; HCT 23.7 % (34.0-46.0); HGB 7.6 gm/dL (11.4-16.0); Hypochromasia Marked; MCH 26.3 pg (25.0-35.0); MCHC 32.2 g/dL (31.0-37.0); MCV 81.7 fL (80.0-100.0); Mean Platelet Volume 10.7; Microcytosis Slight; Platelet Count 203 k/uL (150-450); Poikilocytosis Moderate; WBC 17.4 k/uL (3.8-10.6)
[2019-06-18 05:16] LABS: Calcium 7.9 mg/dL (8.4-10.2); Magnesium 2.1 mg/dL (1.6-2.3); Phosphorus 4.9 mg/dL (2.5-4.5); Potassium 3.3 mmol/L (3.5-5.1)
[2019-06-18 05:32] LABS: Lymphocytes # (M) 1.74 k/uL (1.0-4.8); Neutrophils # (M) 14.96 k/uL (1.3-7.7); Neutrophils % (M) 86 %
[2019-06-18 05:33] LABS: Eosinophils # (M) 0.17 k/uL (0-0.7); Monocytes # (M) 0.52 k/uL (0-1.0); Nucleated Red Blood Cells 0 /100 WBC (0-0); Polychromasia Present; Tear Drop Cells Present; Total Cells Counted 100
[2019-06-18 05:36] LABS: ABG Base Excess -2.7 mmol/L; ABG HCO3 21 mmol/L (21-25); ABG Oxygen Saturation 98.6 % (94-97); ABG PCO2 27 mmHg (35-45); ABG PH 7.49 (7.35-7.45); ABG PO2 101 mmHg (83-108); ABG TCO2 21 mmol/L (19-24); Allen Test Performed? Yes
[2019-06-18 05:48] LABS: Glucose,Whole Blood 115 mg/dL (75-99)
[2019-06-18] MEDS ORDERED: POTASSIUM BICARBONATE/CIT AC 20 MEQ TABLET.EFF PO ONE (06:54)
--- NOTE | 2019-06-18 07:08 | XR ---
EXAMINATION TYPE: XR chest 1V portable DATE OF EXAM: 06/18/2019 Comparison: 06/17/2019 Clinical History: 78 year-old female shortness of breath, Compare with prior Findings: ET tube is satisfactory. NG tube courses below the diaphragm. Left CVC tip in the upper right atrium. Heart remains borderline enlarged. Interstitial and patchy opacities persist throughout the lungs, m ost confluent in the lower lungs. Trace left effusion difficult to exclude. Impression: Overall stable diffuse interstitial and patchy airspace disease, greatest at the lung bases.
[2019-06-18] MEDS: ALBUTEROL HFA INHALER INHALATION PRN (07:43)
[2019-06-18] MEDS: CALCIUM ACETATE 667 MG TAB PO SCH ×4 (07:46→19:03)
[2019-06-18] MEDS: HEPARIN SODIUM,PORCINE 5,000 UNIT/ML 1 ML VIAL SQ SCH ×2 (07:46→19:04)
[2019-06-18] MEDS: CEFEPIME 2 GM in SODIUM CHLORIDE 0.9% 100 ML IVPB SCH (08:01)
[2019-06-18] MEDS: PANTOPRAZOLE 40 MG/10 ML VIAL IVP SCH (08:01)
[2019-06-18] MEDS: CHLORHEXIDINE GLUCONATE 15 ML CUP MUCOUS MEM SCH ×2 (08:01→22:19)
[2019-06-18] MEDS: FLUCONAZOLE IN NACL,ISO-OSM 100 MG in SALINE 1 50ML.BAG IVPB SCH (08:04)
[2019-06-18] MEDS: PARoxetine 10 MG TAB PO SCH (08:04)
[2019-06-18] MEDS: predniSONE 20 MG TAB PO SCH (08:05)
[2019-06-18] MEDS: ASCORBIC ACID 500 MG TAB PO SCH ×2 (08:05→22:19)
[2019-06-18] MEDS: ASPIRIN 81 MG PO SCH (08:05)
[2019-06-18] MEDS: ZINC SULFATE 220 MG CAP PO SCH (08:05)
[2019-06-18] MEDS ORDERED: FUROSEMIDE 10 MG/ML 10 ML VIAL IV STA (08:08)
--- NOTE | 2019-06-18 11:06 | PN ---
PROGRESS NOTE Patient is seen for followup for acute kidney injury. Patient remains aneuric. She has been responding to commands and following commands. However, she is very weak. Patient is currently on CPAP. We had about 2.2 L taken off yesterday with ultrafiltration. Patient's weight is down by about 2 kg. On examination today as discussed with nursing staff, blood pressure is 127/38, heart rate 103 per minute. Patient remains on the vent. She has been following commands. She has edema upper and lower extremities. She is tolerating tube feeds. LABS: Show sodium of 134, potassium 3.3, chloride 106, CO2 is 20, BUN 51, creatinine 2.4, hemoglobin 7.6 g/dL. ASSESSMENT: 1. Acute kidney injury, acute tubular necrosis currently aneuric and hemodialysis dependent, being dialyzed on a daily basis. Yesterday, patient had only ultrafiltration, today we will dialyze her as well and plan for removal of about 3 L as tolerated. 2. Hypoxic respiratory failure, currently on the vent, maintained on CPAP. 3. Hypokalemia, maintained on supplementation. 4. COVID-19 pneumonia, status post treatment. 5. Anemia with significant oozing and bleeding from all the lines, status post packed RBCs transfusion yesterday for hemoglobin of 6.3. No active gastrointestinal bleed noted at this time. PLAN: Hemodialysis today, goal UF 2-3 L as tolerated. Try IV push Lasix x1. MMODL / IJN: [id number] /
[2019-06-18] MEDS ORDERED: VANCOMYCIN 1,250 MG in SODIUM CHLORIDE 0.9% 250 ML IVPB ONE (12:00)
[2019-06-18 13:09] LABS: Glucose,Whole Blood 125 mg/dL (75-99)
--- NOTE | 2019-06-18 13:12 | P.PN ---
Subjective Progress Note Date: 06/18/19 This is a 78-year-old female patient with respiratory failure secondary to Coumadin 19 related pneumonia. A short initially admitted on 05/26/2019 for a UTI and Covid pneumonia. Her initial urine cultures came back positive for E. coli. At the later stage, she was found to have a Covid 19 pneumonia with pulmonary complications. The patient remains in the intensive care unit intubated on a mechanical ventilator. Note that the patient was intubated on 05/31/2019. She was extubated on 06/04/2019. However on 06/09/2019 the patient worsening hypoxemia and she had to be reintubated and placed on mechanical ventilator. She also developed a septic shock related to an MRSA pneumonia. His sputum culture from 06/08/2019 was positive for MRSA. She has other ongoing issues for now including acute kidney injury and the patient remains anuric receiving hemodialysis. The patient also developed an acute non-STEMI with a troponin maxed at 0.4 started on a combination of aspirin and heparin treating an acute non-ST segment elevation myocardial infarction. The patient remains sedated and paralyzed. She is on propofol and Pneumovax. She remains on a mechanical ventilator with assist control mode with a rate of 30, tidal volume 350 and FiO2 40% with a PEEP of 15. She remains on broad-spectrum antibiotics and current antibiotic coverage includes IV cefepime and vancomycin. Diflucan was also added at the sputum was positive for Bernadette multiple occasions. She is also receiving hydroxychloroquine regarding the Covid 19 pneumonia. She is on IV Solu-Medrol 40 mg every 12 hours. She is still hypotensive requiring norepinephrine infusion for blood pressure support and he was being titrated according to the patient's BP response. Note that the patient was started on dialysis for acute kidney injury on 06/11/2019. She has a temporary dialysis catheter inserted. She 2 sessions of hemodialysis since yesterday. She is not producing any urine for now. Note that along with a septic shock, the patient developed severe leukocytosis. White cell count was high as 90.6. It has gradually improved over the past few days. On today's evaluation of 06/14/2019, the patient remains on propofol at 75 g and the patient was taken off the Nimbex. The patient remains on essentially the same ventilator settings which include a tidal volume of 350 with a PEEP of 10 and FiO2 of 40% with a tidal volume of 350 and the respiratory rate of 30. The morning blood gases showed a pH of 7.19 with a pCO2 of 46 and pO2 of 83. The patient seems to have compliant lungs and the patient was requesting higher volumes. For that reason, I increased the tidal volume of 03/30/1947. I do not to be down to 8. I started the patient was also riding the mechanical ventilator at the rate of 30 and I dropped a respiratory rate down to 22. Her chest x-ray was showing some improvement in the pneumonia. There is still feasible breast in the lung bases consistent with infiltration. The patient is still receiving enteral feeding for nutritional support. The patient as mentioned has Covid 19 infection and a bacterial pneumonia in the form of MRSA. We are somewhat inclined not to give Actemra. The interleukin level from few days ago was 56. The patient has developed an acute kidney injury. The patient is producing minimal amount of urine output and she is going to undergo dialysis today. The net fluid balance is +1.8 and 2.7 L over the past 24 hours. . On today's evaluation of 06/15/2019, the patient is being seen in follow-up in the intensive care unit. This morning, the patient remains of Nimbex. The patient is sedated with propofol running at 65 g per KG per minute. The patient is also on Cardizem at 7.5 mg an hour. The patient remains on assist control mode of ventilation. She is at the rate of 22 with a tidal volume of 500 and FiO2 of 40% with a PEEP of 5. The peak pressures 22. The static airway pressure is 11. The patient's blood gas showed a pH of 7.43 with a pCO2 of 28 and pO2 of 76. The patient a follow-up chest x-ray that showed diffuse patchy breath and pulmonary infiltrates, essentially stable compared to yesterday. Endotracheal tube was seen around 1.5 cm above the aung. The plan is to undergo another session of hemodialysis today. The patient has diffuse edema and third spacing all 4 extremities specially in the legs and the patient has been in a significant amount of fluid balance positivity. The patient underwent hemodialysis yesterday. The white cell count is at 11.4. Hemoglobin is at 7.4. The patient's sodium level is at 129. BUN is 56 with a creatinine of 1.9. The LDH level has declined down to 564. The CRP level is down to 15.2. The white cell count is also improved down to 11.4 and the patient's pro-calcitonin level is also improving. As such, the septic bacterial pneumonia has been improving with improvement in hemodynamics and improvement in the pro-calcitonin level and white count. On 06/16/2019, the patient is being seen in follow-up in the intensive care unit. This morning, the patient is been taken off sedation and the patient is being given a sedation holiday. At the time of my evaluation, she was still very much some limited and sleepy and sedated and the patient was not following any commands nor she wasn't withdrawing to any painful stimulation. I requested to keep the patient off propofol for now. She remains on Cardizem at 7.5 mg an hour to control her atrial fibrillation. She remains on a mechanical ventilator with essentially the same ventilator settings which included control of 22, tidal volume of 350, FiO2 of 40% and a PEEP of 5. Peak and static airway pressures are not elevated PA chest x-ray shows stable about pulmonary infiltrates dated to Covid 19 related pneumonia in addition to a superimposed bacterial pneumonia which improved clinically. Mother the patient is afebrile. The patient's white cell count is improved. The patient's pro-calcitonin level is declining is down to 12.2. Also, the patient's blood. Showed a pH of 7.48 with a pCO2 of 29 and pO2 of 81 is with an FiO2 of 40%. The patient is still on examination antibiotics patient is receiving cefepime and vancomycin and Diflucan. She remains on vitamin AF which is running at 26 an hour for enteral feeding and nutritional support. She is undergoing daily dialysis. Her fluid balance is been negative as the patient has been essentially undergoing daily dialysis with ultrafiltration. The plan is to proceed another session of dialysis today. Her current weight is 86 kg which is 1 kg less compared to yesterday. Had extremity edema is also improving. She is afebrile for now. On 06/17/2019 and seeing the patient in follow-up. The patient was taken off sedation since yesterday and the patient of sedation this morning also. As such the patient has been off sedation for around 24 hours. She is able to respond to some simple commands and she is able to nod her head and regular still wasn't fingers to request. Nevertheless, she is unable to raise her arms or legs or raise head of the bed. We have decided to keep it off sedation for now. She is undergoing hemodialysis this morning. She remains on a mechanical ventilator. She is an assist-control mode at the rate of 22 with a tidal volume of 500 and FiO2 of 40% with a PEEP of 5. The left ear showed a pH of 7.48 with a pCO2 of 30 and pO2 of 11. She is on a Cardizem drip at 7.5 mg an hour. She is levo fed for now. She remains on cefepime and Diflucan and vancomycin. As stated earlier the patient was treated for a MRSA pneumonia that complicated Covid 19 related pneumonia. The most recent random vancomycin level from yesterday was 27.4. The patient otherwise is doing well. The morning hemoglobin was at 6.3 and the patient received a unit of packed RBC. Morning blood gases in the above-mentioned vent setting showed a pH of 7.48 with a pCO2 of 30 and pO2 of 11. The chest x-ray from this morning showed a stable bilateral pulmonary infiltrates although slightly improved compared to yesterday's chest x-ray and t he tubes and lines were all in place. The patient is afebrile. The goal is to do some further ultrafiltration as the patient is still significant signs of fluid overload. Furthermore, will communicate with the family and according to them the patient did not want any long-term ventilator support such as tracheostomy and if she fails extubation the plan is not to reintubate based on the patient's and the family's wishes. On 06/18/2019 on seeing the patient for a follow-up. The patient has been off sedation for the past 48 hours. She is moving her arms and she is directing towards to tube asking him to be removed. She is extremely weak. Her weaning parameters remain borderline. I'm not SURE THAT SHE IS GOING TO TOLERATE EXTUBATION.. Based on all this, I contacted the family and I told him that we are considering extubating this patient or BiPAP with the possibility of her not tolerating this wean and going into respiratory failure again. Based on my conversation with the daughter, she was very much agreeable to the affected the patient did not want long-term support being and ventilation or any form of ventilators or dialysis and he was very reasonable for her not to reintubate should the patient failed extubation to BiPAP. For now, the plan is to extubate the patient failed BiPAP. Her current ventilator settings are as follows. She is on assist control mode at the rate of 22 FiO2 of 500 mg of 40% with a PEEP of 5. Her blood gases showed a pH of 7.49 with a pCO2 of 29 and pO2 of 11. She is on IV fluids with normal saline at the rate of 10 mL an hour. She remains on Cardizem drip for rate control regarding her atrial fibrillation at 7.5 mg an hour. She is on no other pressors for now. She's been off sedation for more than 48 hours. She started tolerating her enteral feeding for nutritional support with vital high protein. I gave her a brief spontaneous breathing trial with a pressure support of 10 and a PEEP of 5 and she did well and she was able to generate tidal volumes of more than 400. Based on that, I made the plan to extubate this patient to a BiPAP at a pressure 15/5 cm of water with an FiO2 of 50% and proceed accordingly. She remains on cefepime. She remains on vancomycin. She remains on Diflucan. The chest x-ray shows diffuse in terstitial and patchy airspace disease most on the lung bases. The patient is afebrile. The white cell count is down to 17.4. The patient has hemoglobin of 7.6. The patient is undergoing daily dialysis. The last dialysis session was yesterday and a creatinine from this morning is down to 2.4. Other Arthritis are all well maintained with a potassium level of 3.3 which needs to be replaced. Vancomycin level from today's at 20.7. Objective - Vital Signs Vital signs: Vital Signs Temp 98.2 F 06/18/19 12:00 Pulse 91 06/18/19 12:00 Resp 19 06/18/19 12:00 BP 119/67 06/17/19 19:14 Pulse Ox 98 06/18/19 12:00 Intake & Output 06/17/19 06/18/19 06/18/19 18:59 06:59 18:59 Intake Total 1145.041 789 573 Output Total 2200 5 20 Balance -1054.959 784 553 Weight 85.8 kg 83.1 kg 83.1 kg Intake: IV 444 160 278 Cefepime 2 gm In Sodium 100 100 Chloride 0.9% 100 ml @ 200 mls/hr IVPB Q24HR [facility] Rx#:[id number] Fluconazole in NaCl,Iso- 50 100 Osm 100 mg In Saline 1 50ml.bag @ 50 mls/hr IVPB DAILY [facility] Rx#:[id number] Normal Saline Pressure 69 60 33 Bag Sodium Chloride 0.9% 1, 225 100 45 000 ml @ 20 mls/hr IV . Q24H [facility] Rx#:[id number] Intake, IV Titration 28.041 125 Amount Diltiazem 125 mg In 125 Sodium Chloride 0.9% 100 ml @ Per Protocol IV .Q0M [facility] Rx#:[id number] Norepinephrine 8 mg In 28.041 Sodium Chloride 0.9% 250 ml @ 0.05 MCG/KG/MIN 7. 153 mls/hr IV .Q24H [facility] Rx#:[id number] Oral 60 Tube Feeding 273 444 205 Blood Product 310 Rc As-1 Unit 310 [id number] Other 90 60 30 Output: Urine 0 5 20 Hemodialysis 2200 Other: Voiding Method Indwelling Catheter Indwelling Catheter Indwelling Catheter # Voids 1 1 1 ABP, PAP, CO, CI - Last Documented Arterial Blood Pressure 153/52 - Exam GENERAL EXAM: 78-year-old female patient, intubated, sedated on mechanical ventilator. The patient is off sedation the patient is opening her eyes and some response to simple commands also noted on today's evaluation . HEAD: Normocephalic/atraumatic. EYES: Normal reaction of pupils, equal size. Conjunctiva pink, sclera white. NOSE: Clear with pink turbinates. THROAT: No erythema or exudates. NECK: No masses, no JVD, no thyroid enlargement, no adenopathy. CHEST: No chest wall deformity. Symmetrical expansion. LUNGS: Equal air entry with crackles in the bilateral posterior bases. CVS: Regular rate and rhythm, normal S1 and S2, no gallops, no murmurs, no rubs ABDOMEN: Soft, nontender. No hepatosplenomegaly, normal bowel sounds, no guarding or rigidity. EXTREMITIES: No clubbing, significant edema in all 4 extremities, no cyanosis, 2+ pulses and upper and lower extremities. The patient is dialysis catheter in the right groin area. MUSCULOSKELETAL: Muscle strength and tone normal. SPINE: No scoliosis or deformity SKIN: No rashes CENTRAL NERVOUS SYSTEM: Intubated, opening up her eyes and following some simple commands as stated. She has significant motor weakness in all 4 extremities. Unable to raise her arms and legs against gravity. - Labs CBC & Chem 7: 06/18/19 04:46 06/18/19 04:46 Labs: Abnormal Lab Results - Last 24 Hours (Table) 06/17/19 06/17/19 06/17/19 Range/Units 17:38 20:30 23:47 WBC 20.9 H (3.8-10.6) k/uL RBC 3.28 L (3.80-5.40) m/uL Hgb 8.3 L D (11.4-16.0) gm/dL Hct 26.4 L (34.0-46.0) % RDW 22.6 H (11.5-15.5) % Neutrophils # (Manual) 18.80 H (1.3-7.7) k/uL Nucleated RBCs 6 H (0-0) /100 WBC ABG pH (7.35-7.45) ABG pCO2 (35-45) mmHg ABG O2 Saturation (94-97) % Sodium (137-145) mmol/L Potassium (3.5-5.1) mmol/L Carbon Dioxide (22-30) mmol/L BUN (7-17) mg/dL Creatinine (0.52-1.04) mg/dL Glucose (74-99) mg/dL POC Glucose (mg/dL) 105 H 106 H (75-99) mg/dL Calcium (8.4-10.2) mg/dL Phosphorus (2.5-4.5) mg/dL 06/18/19 06/18/19 06/18/19 Range/Units 04:46 04:46 05:33 WBC 17.4 H (3.8-10.6) k/uL RBC 2.90 L (3.80-5.40) m/uL Hgb 7.6 L (11.4-16.0) gm/dL Hct 23.7 L (34.0-46.0) % RDW 23.0 H (11.5-15.5) % Neutrophils # (Manual) 14.96 H (1.3-7.7) k/uL Nucleated RBCs (0-0) /100 WBC ABG pH 7.49 H (7.35-7.45) ABG pCO2 27 L (35-45) mmHg ABG O2 Saturation 98.6 H (94-97) % Sodium 134 L (137-145) mmol/L Potassium 3.3 L (3.5-5.1) mmol/L Carbon Dioxide 20 L (22-30) mmol/L BUN 51 H (7-17) mg/dL Creatinine 2.44 H (0.52-1.04) mg/dL Glucose 102 H (74-99) mg/dL POC Glucose (mg/dL) (75-99) mg/dL Calcium 7.9 L (8.4-10.2) mg/dL Phosphorus 4.9 H (2.5-4.5) mg/dL 06/18/19 Range/Units 05:46 WBC (3.8-10.6) k/uL RBC (3.80-5.40) m/uL Hgb (11.4-16.0) gm/dL Hct (34.0-46.0) % RDW (11.5-15.5) % Neutrophils # (Manual) (1.3-7.7) k/uL Nucleated RBCs (0-0) /100 WBC ABG pH (7.35-7.45) ABG pCO2 (35-45) mmHg ABG O2 Saturation (94-97) % Sodium (137-145) mmol/L Potassium (3.5-5.1) mmol/L Carbon Dioxide (22-30) mmol/L BUN (7-17) mg/dL Creatinine (0.52-1.04) mg/dL Glucose (74-99) mg/dL POC Glucose (mg/dL) 115 H (75-99) mg/dL Calcium (8.4-10.2) mg/dL Phosphorus (2.5-4.5) mg/dL Assessment and Plan Plan: 1 Acute hypoxemic and hypercapnic respiratory failure related to acute COVID 19 related pneumonia, chest x-ray on 05/31/2019 showed progressive worsening of the multifocal interstitial and alveolar opacities most pronounced in the right midlung. Patient required intubation and placement on mechanical ventilator on 05/31/2019, she was successfully weaned and extubated on 06/04/2019. However today on 06/09/2019 patient has developed a worsening hypoxemia, and she developed bilateral pneumonia with septic shock. On 06/18/2019, the patient is off sedation for around 48 hours. She has borderline weaning parameters. She is quite weak. Her chest exit showed stable bilateral pulmonary infiltrates as the patient was treated for a Covid 19 related pneumonia and MRSA. The patient is on the appropriate antibiotic coverage and the patient continues to be on accommodation cefepime and vancomycin. The chest x-ray was reviewed. Blood gases was reviewed. The family has been contacted. The patient will be extubated today. The patient be extubated to BiPAP at a pressure 15/5 cm of water and will going to monitor progress accordingly. The chances of full recovery from this is quite low and the family understands. They have made a decision not to reintubate if she fails extubation. This was discussed with the daughter on the phone. Based on this, the patient will be extubated. NG tube will be removed. May proceed with dialysis later on today if she is able to tolerate extubation. 2 Septic shock related to MRSA pneumonia. Current coverage includes cefepime, and vancomycin. Patient required re-intubation and placement on mechanical ventilation on 06/09/2019. The septic shock is improved and the patient is currently hemodynamically stable 3 acute kidney injury secondary to sepsis and septic shock. the patient is not producing any urine output and she is dialysis dependent. The nephrology is on the case. She has a temporary dialysis catheter in the patient is requiring daily hemodialysis. Dialysis session of dialysis was done today in the intensive care unit. 4 severe leukocytosis secondary to septic shock, improved, the patient is currently hemodynamically stable, and the leukocytosis has premature covered at this point in time 5 A. fib with RVR related to sepsis, the rate is better controlled on Cardizem drip at 7.5 mg an hour 6 acute non-STEMI with elevation of troponins, remains on aspirin 81 mg 7 acute bilateral Covid 19 pneumonia with secondary elevation of the LDH, ferritin related to COVID 19 infectionmy treated with Plaquenil and zinc sulfate, and inflammatory markers including the LDH and the ferritin the CRP levels improved/improving 8 hypertensive heart disease with a concentric LVH and an ejection fraction of 55-60% with secondary pulmonary hypertension with a PA pressure of 54 based on echocardiogram from early May 2019 9 Acute urinary tract infection, related to E. coli, This was diagnosed at time of admission and his been well treated 10 History of hypertension 11 Depression 12 Recent history of large soft tissue mass involving the posterior right hip status post biopsy, results are pending 13 Previous history of chronic tobacco dependence Plan Reviewed the chest x-ray Reviewed the blood gases Extubated the patient or BiPAP at a pressure 15/5 cm of water and FiO2 of 50% Remove NG tube Continue other current antibiotic coverage included a combination of cefepime and vancomycin and Diflucan No plans for reintubation should the patient failed this extubation trial. She is being monitored very closely. I her chance of recovery is low however it was worthwhile extubating her to a BiPAP for the above-mentioned reasons. She remains quite weak and debilitated. The patient herself never wanted long-term mechanical ventilation or any other form of support such as dialysis. This was confirmed upon my discussion with the family. Had a lengthy discussion with the patient's family. No plans for long-term me chanical ventilation. No plans for intubation if the patient failed the extubation trial. As such her CODE STATUS is DO NOT RESUSCITATE. We'll continue to follow we'll continue the supportive care for now. Condition is critical.This evaluation was done and more than 30 minutes Time with Patient: Greater than 30
[2019-06-18] MEDS: NOREPINEPHRINE 8 MG in SODIUM CHLORIDE 0.9% 250 ML IV SCH (13:16)
[2019-06-18] MEDS: DILTIAZEM 125 MG in SODIUM CHLORIDE 0.9% 100 ML IV SCH (13:19)
--- NOTE | 2019-06-18 14:13 | P.PN ---
Subjective Progress Note Date: 06/18/19 Principal diagnosis: COVID pneumonia 78-year-old female with PMH of hypertension presented to the ED for epigastric discomfort and intractable nausea and vomiting. In the ED, she was noted to have an elevated troponin of 0.418 with T-wave inversions on EKG. She was started on aspirin and heparin drip and was admitted for non-ST elevation OK. On 05/27/2019 she was noted to have spiked a fever thought to be possibly related to UTI or COVID 19 infection. Troponins were trended which went from 0.195-0.190. Her troponins were related to demand ischemia probably from sepsis . Influenza A and B was negative. Urine culture did come back positive for E. coli that was sensitive to Rocephin. COVID testing was subsequently positive. She was initiated on hydroxychloroquine, azithromycin, Rocephin, zinc and vitamin C. Infectious disease was consulted and discontinued her Rocephin and azithromycin. Echocardiogram was done which showed an EF of 55-60%. Her respiratory status worsened and to 05/31/2019. Her oxygen requirements increased from 8 L nasal cannula to 15 L high flow. It was noted that she was DO NOT RESUSCITATE and DO NOT INTUBATE. I had a long conversation with the patient and she was agreeable for intubation. Pulmonology was consulted and she was moved to the ICU for elective intubation. Sedation holiday was attempted on June 01 and June 02. She did have diarrhea for which she was given cholestyramine, C. diff was negative. Patient was extubated on 06/04/2019. She did go into atrial flutter on telemetry on 06/04/2019 for which she was started on therapeutic Lovenox by cardiology. Her Rocephin was started on 06/05/2019 for total of 3 doses to treat UTI. Her respiratory status continued to worsen after extubation patient was reintubated on 06/09/2019. On June 09 patient was noted to be in A. fib with rate of 103-120 bpm for which she was started on Cardizem drip. Patient required pressors to maintain BP and was started on norepinephrine IV. Vancomycin was added to her medication regimen of cefepime and hydroxychloroquine was restarted for worsening leukocytosis and inflammatory markers. Urine, blood and sputum cultures were collected. Sputum culture grew MRSA and Bernadette albicans. Her urine culture grew bernadette albicans and she was started on Fluconazole IV. Her renal function and urine production continued to worsen and nephrology was consulted. Dialysis catheter was placed on 06/11/2019 and dialysis was initiated. Patient underwent sedation holiday on June 14 and , she has been minimally responsive and unable to follow commands up until this time. Her condition continues to remain critical. Patient was seen and examined. Patient is more responsive today and following simple commands off sedation. Appears to be considerably weak. Extubated today currently on BiPAP. Chest x-ray shows improved bibasilar reticular interstitial airspace disease. Hemoglobin improved to 7.6 after 1 unit PRBC. Sodium improving to 134. According to RN, discussed with family, plans to not reintubate if fails BiPAP. Plans for comfort care if patient fails BiPAP. Objective - Vital Signs Vital signs: Vital Signs Temp 98.2 F 06/18/19 12:00 Pulse 91 06/18/19 12:00 Resp 19 06/18/19 12:00 BP 119/67 06/17/19 19:14 Pulse Ox 98 06/18/19 12:00 Intake & Output 06/17/19 06/18/19 06/18/19 18:59 06:59 18:59 Intake Total 1145.041 789 677.25 Output Total 2200 5 20 Balance -1054.959 784 657.25 Weight 85.8 kg 83.1 kg 83.1 kg Intake: IV 444 160 278 Cefepime 2 gm In Sodium 100 100 Chloride 0.9% 100 ml @ 200 mls/hr IVPB Q24HR [facility] Rx#:[id number] Fluconazole in NaCl,Iso- 50 100 Osm 100 mg In Saline 1 50ml.bag @ 50 mls/hr IVPB DAILY [facility] Rx#:[id number] Normal Saline Pressure 69 60 33 Bag Sodium Chloride 0.9% 1, 225 100 45 000 ml @ 20 mls/hr IV . Q24H [facility] Rx#:[id number] Intake, IV Titration 28.041 125 104.25 Amount Diltiazem 125 mg In 125 104.25 Sodium Chloride 0.9% 100 ml @ Per Protocol IV .Q0M [facility] Rx#:[id number] Norepinephrine 8 mg In 28.041 Sodium Chloride 0.9% 250 ml @ 0.05 MCG/KG/MIN 7. 153 mls/hr IV .Q24H [facility] Rx#:[id number] Oral 60 Tube Feeding 273 444 205 Blood Product 310 Rc As-1 Unit 310 [id number] Other 90 60 30 Output: Urine 0 5 20 Hemodialysis 2200 Other: Voiding Method Indwelling Catheter Indwelling Catheter Indwelling Catheter # Voids 1 1 1 ABP, PAP, CO, CI - Last Documented Arterial Blood Pressure 153/52 - Exam General: [non toxic], [dyspnea on BiPAP], [appears at stated age] Derm: [warm], [dry] Head: [atraumatic], [normocephalic], [symmetric] Eyes: [EOMI], [no lid lag], [anicteric sclera] Mouth: [no lip lesion], [mucus membranes moist] Cardiovascular: [S1S2 ireg], [tachycardia], [positive DP pulse bilateral], Lungs: [Coarse breath sounds bilaterally], [no rhonchi, no rales] , [accessory muscle use] Abdominal: [soft], [ nontender to palpation], [no guarding], [no appreciable organomegaly] Ext: [no gross muscle atrophy], [no edema], [no contractures], [right groin dialysis catheter] Neuro: [Unable to determine] Psych: [Unable to determine] - Labs CBC & Chem 7: 06/18/19 04:46 06/18/19 04:46 Labs: Abnormal Lab Results - Last 24 Hours (Table) 06/17/19 06/17/19 06/17/19 Range/Units 17:38 20:30 23:47 WBC 20.9 H (3.8-10.6) k/uL RBC 3.28 L (3.80-5.40) m/uL Hgb 8.3 L D (11.4-16.0) gm/dL Hct 26.4 L (34.0-46.0) % RDW 22.6 H (11.5-15.5) % Neutrophils # (Manual) 18.80 H (1.3-7.7) k/uL Nucleated RBCs 6 H (0-0) /100 WBC ABG pH (7.35-7.45) ABG pCO2 (35-45) mmHg ABG O2 Saturation (94-97) % Sodium (137-145) mmol/L Potassium (3.5-5.1) mmol/L Carbon Dioxide (22-30) mmol/L BUN (7-17) mg/dL Creatinine (0.52-1.04) mg/dL Glucose (74-99) mg/dL POC Glucose (mg/dL) 105 H 106 H (75-99) mg/dL Calcium (8.4-10.2) mg/dL Phosphorus (2.5-4.5) mg/dL 06/18/19 06/18/19 06/18/19 Range/Units 04:46 04:46 05:33 WBC 17.4 H (3.8-10.6) k/uL RBC 2.90 L (3.80-5.40) m/uL Hgb 7.6 L (11.4-16.0) gm/dL Hct 23.7 L (34.0-46.0) % RDW 23.0 H (11.5-15.5) % Neutrophils # (Manual) 14.96 H (1.3-7.7) k/uL Nucleated RBCs (0-0) /100 WBC ABG pH 7.49 H (7.35-7.45) ABG pCO2 27 L (35-45) mmHg ABG O2 Saturation 98.6 H (94-97) % Sodium 134 L (137-145) mmol/L Potassium 3.3 L (3.5-5.1) mmol/L Carbon Dioxide 20 L (22-30) mmol/L BUN 51 H (7-17) mg/dL Creatinine 2.44 H (0.52-1.04) mg/dL Glucose 102 H (74-99) mg/dL POC Glucose (mg/dL) (75-99) mg/dL Calcium 7.9 L (8.4-10.2) mg/dL Phosphorus 4.9 H (2.5-4.5) mg/dL 06/18/19 06/18/19 Range/Units 05:46 13:07 WBC (3.8-10.6) k/uL RBC (3.80-5.40) m/uL Hgb (11.4-16.0) gm/dL Hct (34.0-46.0) % RDW (11.5-15.5) % Neutrophils # (Manual) (1.3-7.7) k/uL Nucleated RBCs (0-0) /100 WBC ABG pH (7.35-7.45) ABG pCO2 (35-45) mmHg ABG O2 Saturation (94-97) % Sodium (137-145) mmol/L Potassium (3.5-5.1) mmol/L Carbon Dioxide (22-30) mmol/L BUN (7-17) mg/dL Creatinine (0.52-1.04) mg/dL Glucose (74-99) mg/dL POC Glucose (mg/dL) 115 H 125 H (75-99) mg/dL Calcium (8.4-10.2) mg/dL Phosphorus (2.5-4.5) mg/dL Assessment and Plan Assessment: Acute hypoxic respiratory failure with Septic shock secondary to COVID 19 and MRSA pneumonia Acute kidney injury with metabolic acidosis from septic shock requiring dialysis Anemia Hyponatremia Hypokalemia AFib with RVR UTI Hypertension Elevated troponin likely demand ischemia Hip tumor Patient was reintubated on 06/08/2018. Chest x-ray shows minimal improvement. Leukocytosis of 24.3-11.4-19.2-17.4 with neutrophilia and lymphopenia pointing towards bacterial infection. Sputum culture positive MRSA and Bernadette albicans. Urine culture positive Bernadette albicans. Previous urine culture positive for E. coli. Pro-calcitonin, LDH, ferritin and CRP decreasing. Plans: Continue cefepime. Continue fluconazole. Continue vancomycin. Infectious disease following. Continue trending inflammatory markers. No plans to reintubated if fails extubation. BUN 59-49-51, creatinine 2.16-1.95-2.32-2.28-2.44. Likely prerenal from septic shock. Plans: Continue calcium acetate. Continue sodium bicarb supplementation. Nephrology following. Dialysis today. Hemoglobin dropped from 9.1-7.4-7.3-6.3-7.6. No obvious source of bleed. Plans: DC Lovenox and start subcut Heparin. Follow repeat CBC. Sodium [phone]. Likely SIADH. Plans: Fluid restriction. Daily BMP. Improving K 3.3. Plans: Replace via protocol. Daily BMP. Plans: Lovenox discontinued due to drop in hemoglobin, continue subcutaneous heparin. Continue Cardizem drip. Maintain potassium greater than 4 and magnesium greater than 2. Follow cardiology recommendations. Telemetry monitoring. Plans: Completed treatment for UTI. BP 153/52. Plans: Lisinopril discontinued for acute kidney injury. Metoprolol discontinued for hypotension. Currently on pressors. Monitor vitals, adjust medications as necessary. Her troponins are flat. Troponin 0.48, 0.195, 0.190. Likely demand ischemia from sepsis. Echocardiogram with no wall motion abnormalities. Plans: Cardiology evaluated, nothing further to do. Plans: Adequate pain management. [Patient extubated to BiPAP. Plans on no reintubation if fails BiPAP, family agreeable and aware. Getting dialysis today. Pulmonology, infectious disease, nephrology, cardiology following. Her prognosis is poor. Case discussed with Dr. Neal.]
--- NOTE | 2019-06-18 17:03 | PN ---
PROGRESS NOTE DATE OF SERVICE: 06/18/2019 REASON FOR FOLLOWUP: Pneumonia. INTERVAL HISTORY: The patient has been extubated this morning. Patient is currently on a BiPAP, remains to be lethargic. She is requiring pressor off and on. This patient's time of dialysis did have diarrhea but no worsening per the RN. The patient was not able to provide reliable history. PHYSICAL EXAMINATION: Blood pressure 153/52 with a pulse of 91, temperature 98.2, she is 98% BiPAP. General description is an elderly female, lying in bed in no distress. RESPIRATORY SYSTEM:: Unlabored breathing, decreased breath sounds in the base, no wheeze. HEART: S1, S2. Regular rate and rhythm. ABDOMEN: Soft, no distention was noted. LABS: Hemoglobin 7.4, white count 8.4, BUN of 51, creatinine is 2.44, Vanco random is 20. DIAGNOSTIC IMPRESSION/PLAN: 1. Patient with acute respiratory failure which is multifactorial in this patient who did have a component of pneumonia. Sputum has been finalized with MRSA. Patient is covered with vancomycin. Zyvox could not be used because of the other medication the patient is on. The patient at this time to continue vancomycin and monitor clinical course closely. Overall prognosis remains to be guarded. 2. Patient with UTI, covered with Diflucan. MMODL / IJN: [id number] /
[2019-06-18 18:38] LABS: Glucose,Whole Blood 150 mg/dL (75-99)
[2019-06-18] MEDS: MORPHINE SULFATE 2 MG/ML SYRINGE IVP PRN (22:20)
[2019-06-18 23:59] LABS: Glucose,Whole Blood 93 mg/dL (75-99)
[2019-06-19] MEDS: HEPARIN SODIUM,PORCINE 5,000 UNIT/ML 1 ML VIAL SQ SCH ×3 (00:30→15:58)
[2019-06-19] MEDS: INSULIN ASPART (NovoLOG) 100 UNIT/ML VIAL SQ SCH ×4 (00:49→18:38)
[2019-06-19] MEDS: DILTIAZEM 125 MG in SODIUM CHLORIDE 0.9% 100 ML IV SCH ×2 (04:49→21:30)
[2019-06-19 05:23] LABS: Anisocytosis Marked; Basophils % (A) 0 %; Eosinophils # (A) 0.2 k/uL (0-0.7); Eosinophils % (A) 2 %; HCT 22.2 % (34.0-46.0); Hypochromasia Marked; Lymphocytes % (A) 7 %; MCH 26.2 pg (25.0-35.0); MCHC 30.9 g/dL (31.0-37.0); MCV 84.9 fL (80.0-100.0); Mean Platelet Volume 11.7; Microcytosis Slight; Monocytes # (A) 0.3 k/uL (0-1.0); Monocytes % (A) 3 %; Neutrophils # (A) 11.3 k/uL (1.3-7.7); Neutrophils % (A) 87 %; Platelet Count 161 k/uL (150-450); Poikilocytosis Moderate; RBC 2.61 m/uL (3.80-5.40); RDW 24.1 % (11.5-15.5)
[2019-06-19 05:35] LABS: HGB 6.8 gm/dL (11.4-16.0)
[2019-06-19 05:36] LABS: Calcium 8.5 mg/dL (8.4-10.2); Magnesium 2.3 mg/dL (1.6-2.3); Potassium 3.8 mmol/L (3.5-5.1)
[2019-06-19 05:54] LABS: Glucose,Whole Blood 82 mg/dL (75-99)
[2019-06-19 05:56] LABS: Ovalocytes Present; Polychromasia Present; Tear Drop Cells Present
[2019-06-19] MEDS: CALCIUM ACETATE 667 MG TAB PO SCH ×3 (06:47→14:36)
--- NOTE | 2019-06-19 06:51 | XR ---
EXAMINATION TYPE: XR chest 1V portable DATE OF EXAM: 06/19/2019 HISTORY: Pneumonia. REFERENCE: Previous study dated 06/18/2019. FINDINGS: The patient has been extubated. The patient's NG tube is been removed. A left internal jugu lar catheter remains in place. Its tip is in the SVC. There continues be patchy, bilateral airspace disease. The heart is not enlarged. I suspect tiny, alejandra ateral effusions. IMPRESSION: NO SIGNIFICANT INTERVAL CHANGE IN THE APPEARANCE OF THE CHEST.
[2019-06-19] MEDS: PANTOPRAZOLE 40 MG/10 ML VIAL IVP SCH (08:30)
[2019-06-19] MEDS: CEFEPIME 2 GM in SODIUM CHLORIDE 0.9% 100 ML IVPB SCH (08:30)
[2019-06-19] MEDS: ASCORBIC ACID 500 MG TAB PO SCH ×2 (08:31→20:34)
[2019-06-19] MEDS: ZINC SULFATE 220 MG CAP PO SCH (08:31)
[2019-06-19] MEDS: ASPIRIN 81 MG PO SCH (08:53)
[2019-06-19] MEDS: PARoxetine 10 MG TAB PO SCH (08:53)
[2019-06-19] MEDS: predniSONE 20 MG TAB PO SCH (08:54)
[2019-06-19] MEDS: FLUCONAZOLE IN NACL,ISO-OSM 100 MG in SALINE 1 50ML.BAG IVPB SCH (10:15)
--- NOTE | 2019-06-19 11:43 | P.PN ---
Subjective Progress Note Date: 06/19/19 This is a 78-year-old female patient with respiratory failure secondary to Coumadin 19 related pneumonia. A short initially admitted on 05/26/2019 for a UTI and Covid pneumonia. Her initial urine cultures came back positive for E. coli. At the later stage, she was found to have a Covid 19 pneumonia with pulmonary complications. The patient remains in the intensive care unit intubated on a mechanical ventilator. Note that the patient was intubated on 05/31/2019. She was extubated on 06/04/2019. However on 06/09/2019 the patient worsening hypoxemia and she had to be reintubated and placed on mechanical ventilator. She also developed a septic shock related to an MRSA pneumonia. His sputum culture from 06/08/2019 was positive for MRSA. She has other ongoing issues for now including acute kidney injury and the patient remains anuric receiving hemodialysis. The patient also developed an acute non-STEMI with a troponin maxed at 0.4 started on a combination of aspirin and heparin treating an acute non-ST segment elevation myocardial infarction. The patient remains sedated and paralyzed. She is on propofol and Pneumovax. She remains on a mechanical ventilator with assist control mode with a rate of 30, tidal volume 350 and FiO2 40% with a PEEP of 15. She remains on broad-spectrum antibiotics and current antibiotic coverage includes IV cefepime and vancomycin. Diflucan was also added at the sputum was positive for Bernadette multiple occasions. She is also receiving hydroxychloroquine regarding the Covid 19 pneumonia. She is on IV Solu-Medrol 40 mg every 12 hours. She is still hypotensive requiring norepinephrine infusion for blood pressure support and he was being titrated according to the patient's BP response. Note that the patient was started on dialysis for acute kidney injury on 06/11/2019. She has a temporary dialysis catheter inserted. She 2 sessions of hemodialysis since yesterday. She is not producing any urine for now. Note that along with a septic shock, the patient developed severe leukocytosis. White cell count was high as 90.6. It has gradually improved over the past few days. On today's evaluation of 06/14/2019, the patient remains on propofol at 75 g and the patient was taken off the Nimbex. The patient remains on essentially the same ventilator settings which include a tidal volume of 350 with a PEEP of 10 and FiO2 of 40% with a tidal volume of 350 and the respiratory rate of 30. The morning blood gases showed a pH of 7.19 with a pCO2 of 46 and pO2 of 83. The patient seems to have compliant lungs and the patient was requesting higher volumes. For that reason, I increased the tidal volume of 03/30/1947. I do not to be down to 8. I started the patient was also riding the mechanical ventilator at the rate of 30 and I dropped a respiratory rate down to 22. Her chest x-ray was showing some improvement in the pneumonia. There is still feasible breast in the lung bases consistent with infiltration. The patient is still receiving enteral feeding for nutritional support. The patient as mentioned has Covid 19 infection and a bacterial pneumonia in the form of MRSA. We are somewhat inclined not to give Actemra. The interleukin level from few days ago was 56. The patient has developed an acute kidney injury. The patient is producing minimal amount of urine output and she is going to undergo dialysis today. The net fluid balance is +1.8 and 2.7 L over the past 24 hours. . On today's evaluation of 06/15/2019, the patient is being seen in follow-up in the intensive care unit. This morning, the patient remains of Nimbex. The patient is sedated with propofol running at 65 g per KG per minute. The patient is also on Cardizem at 7.5 mg an hour. The patient remains on assist control mode of ventilation. She is at the rate of 22 with a tidal volume of 500 and FiO2 of 40% with a PEEP of 5. The peak pressures 22. The static airway pressure is 11. The patient's blood gas showed a pH of 7.43 with a pCO2 of 28 and pO2 of 76. The patient a follow-up chest x-ray that showed diffuse patchy breath and pulmonary infiltrates, essentially stable compared to yesterday. Endotracheal tube was seen around 1.5 cm above the aung. The plan is to undergo another session of hemodialysis today. The patient has diffuse edema and third spacing all 4 extremities specially in the legs and the patient has been in a significant amount of fluid balance positivity. The patient underwent hemodialysis yesterday. The white cell count is at 11.4. Hemoglobin is at 7.4. The patient's sodium level is at 129. BUN is 56 with a creatinine of 1.9. The LDH level has declined down to 564. The CRP level is down to 15.2. The white cell count is also improved down to 11.4 and the patient's pro-calcitonin level is also improving. As such, the septic bacterial pneumonia has been improving with improvement in hemodynamics and improvement in the pro-calcitonin level and white count. On 06/16/2019, the patient is being seen in follow-up in the intensive care unit. This morning, the patient is been taken off sedation and the patient is being given a sedation holiday. At the time of my evaluation, she was still very much some limited and sleepy and sedated and the patient was not following any commands nor she wasn't withdrawing to any painful stimulation. I requested to keep the patient off propofol for now. She remains on Cardizem at 7.5 mg an hour to control her atrial fibrillation. She remains on a mechanical ventilator with essentially the same ventilator settings which included control of 22, tidal volume of 350, FiO2 of 40% and a PEEP of 5. Peak and static airway pressures are not elevated PA chest x-ray shows stable about pulmonary infiltrates dated to Covid 19 related pneumonia in addition to a superimposed bacterial pneumonia which improved clinically. Mother the patient is afebrile. The patient's white cell count is improved. The patient's pro-calcitonin level is declining is down to 12.2. Also, the patient's blood. Showed a pH of 7.48 with a pCO2 of 29 and pO2 of 81 is with an FiO2 of 40%. The patient is still on examination antibiotics patient is receiving cefepime and vancomycin and Diflucan. She remains on vitamin AF which is running at 26 an hour for enteral feeding and nutritional support. She is undergoing daily dialysis. Her fluid balance is been negative as the patient has been essentially undergoing daily dialysis with ultrafiltration. The plan is to proceed another session of dialysis today. Her current weight is 86 kg which is 1 kg less compared to yesterday. Had extremity edema is also improving. She is afebrile for now. On 06/17/2019 and seeing the patient in follow-up. The patient was taken off sedation since yesterday and the patient of sedation this morning also. As such the patient has been off sedation for around 24 hours. She is able to respond to some simple commands and she is able to nod her head and regular still wasn't fingers to request. Nevertheless, she is unable to raise her arms or legs or raise head of the bed. We have decided to keep it off sedation for now. She is undergoing hemodialysis this morning. She remains on a mechanical ventilator. She is an assist-control mode at the rate of 22 with a tidal volume of 500 and FiO2 of 40% with a PEEP of 5. The left ear showed a pH of 7.48 with a pCO2 of 30 and pO2 of 11. She is on a Cardizem drip at 7.5 mg an hour. She is levo fed for now. She remains on cefepime and Diflucan and vancomycin. As stated earlier the patient was treated for a MRSA pneumonia that complicated Covid 19 related pneumonia. The most recent random vancomycin level from yesterday was 27.4. The patient otherwise is doing well. The morning hemoglobin was at 6.3 and the patient received a unit of packed RBC. Morning blood gases in the above-mentioned vent setting showed a pH of 7.48 with a pCO2 of 30 and pO2 of 11. The chest x-ray from this morning showed a stable bilateral pulmonary infiltrates although slightly improved compared to yesterday's chest x-ray and t he tubes and lines were all in place. The patient is afebrile. The goal is to do some further ultrafiltration as the patient is still significant signs of fluid overload. Furthermore, will communicate with the family and according to them the patient did not want any long-term ventilator support such as tracheostomy and if she fails extubation the plan is not to reintubate based on the patient's and the family's wishes. On 06/18/2019 on seeing the patient for a follow-up. The patient has been off sedation for the past 48 hours. She is moving her arms and she is directing towards to tube asking him to be removed. She is extremely weak. Her weaning parameters remain borderline. I'm not SURE THAT SHE IS GOING TO TOLERATE EXTUBATION.. Based on all this, I contacted the family and I told him that we are considering extubating this patient or BiPAP with the possibility of her not tolerating this wean and going into respiratory failure again. Based on my conversation with the daughter, she was very much agreeable to the affected the patient did not want long-term support being and ventilation or any form of ventilators or dialysis and he was very reasonable for her not to reintubate should the patient failed extubation to BiPAP. For now, the plan is to extubate the patient failed BiPAP. Her current ventilator settings are as follows. She is on assist control mode at the rate of 22 FiO2 of 500 mg of 40% with a PEEP of 5. Her blood gases showed a pH of 7.49 with a pCO2 of 29 and pO2 of 11. She is on IV fluids with normal saline at the rate of 10 mL an hour. She remains on Cardizem drip for rate control regarding her atrial fibrillation at 7.5 mg an hour. She is on no other pressors for now. She's been off sedation for more than 48 hours. She started tolerating her enteral feeding for nutritional support with vital high protein. I gave her a brief spontaneous breathing trial with a pressure support of 10 and a PEEP of 5 and she did well and she was able to generate tidal volumes of more than 400. Based on that, I made the plan to extubate this patient to a BiPAP at a pressure 15/5 cm of water with an FiO2 of 50% and proceed accordingly. She remains on cefepime. She remains on vancomycin. She remains on Diflucan. The chest x-ray shows diffuse in terstitial and patchy airspace disease most on the lung bases. The patient is afebrile. The white cell count is down to 17.4. The patient has hemoglobin of 7.6. The patient is undergoing daily dialysis. The last dialysis session was yesterday and a creatinine from this morning is down to 2.4. Other Arthritis are all well maintained with a potassium level of 3.3 which needs to be replaced. Vancomycin level from today's at 20.7. On 06/19/2019, the patient remains in intensive care unit. She's been off sedation for the past 72 hours and the patient has been extubated and currently is on a BiPAP pressure of 15/5 cm of water and FiO2 of 40%. The plan is to proceed with another session of dialysis this afternoon. The patient is profoundly weak. She is able to respond to questions and she seems to be appropriate. She is wiggling her toes and fingers. Nevertheless she is unable to raise it up against gravity. She is able to move her head and say yes or no. She has no significant cough or sputum production. She is generating tidal volumes of about 400 while being on mechanical noninvasive partial pressure ventilation. Her respiratory rate remains less than 30. Overnight, she required medication for pain and she was given morphine. She is nothing by mouth for now. Unable to come off the BiPAP as the patient was taken off the BiPAP for a few minutes yesterday to a nasal cannula and she failed and she had to be placed back on the BiPAP. She remains on cefepime. She remains on vancomycin. She remains on Diflucan. She is on no pressors. She is on Cardizem drip for rate control regarding her chronic atrial fibrillation. She has significant amount of swelling in all 4 extremities pH is going to undergo another session of dialysis today. She is afebrile. Urine output is diminished and the patient is receiving daily hemodialysis. The morning hemoglobin was at 6.8. She showed no signs of any acute GI bleed. She'll be given units of packed RBC today. I contacted the daughter and I informed her of these changes. We'll keep the patient on the BiPAP for another 24 hours and monitor progress. Objective - Vital Signs Vital signs: Vital Signs Temp 97.6 F 06/19/19 10:34 Pulse 89 06/19/19 10:34 Resp 22 06/19/19 10:34 BP 113/60 06/19/19 10:34 Pulse Ox 99 06/19/19 10:34 Intake & Output 06/18/19 06/19/19 06/19/19 18:59 06:59 18:59 Intake Total 876.418 325.881 534 Output Total 3020 20 5 Balance -2143.582 305.881 529 Weight 83.1 kg 81.8 kg Intake: IV 460 202 224 Cefepime 2 gm In Sodium 100 100 Chloride 0.9% 100 ml @ 200 mls/hr IVPB Q24HR [facility] Rx#:[id number] Fluconazole in NaCl,Iso- 100 50 Osm 100 mg In Saline 1 50ml.bag @ 50 mls/hr IVPB DAILY [facility] Rx#:[id number] Normal Saline Pressure 75 72 24 Bag Sodium Chloride 0.9% 1, 185 130 50 000 ml @ 20 mls/hr IV . Q24H [facility] Rx#:[id number] Intake, IV Titration 121.418 123.881 Amount Diltiazem 125 mg In 104.25 116.25 Sodium Chloride 0.9% 100 ml @ Per Protocol IV .Q0M [facility] Rx#:[id number] Norepinephrine 8 mg In 17.168 7.631 Sodium Chloride 0.9% 250 ml @ 0.05 MCG/KG/MIN 7. 153 mls/hr IV .Q24H [facility] Rx#:[id number] Oral 60 Tube Feeding 205 Blood Product 310 Rc As-1 Unit 310 [id number] Other 30 Output: Urine 20 20 5 Hemodialysis 3000 Other: Voiding Method Indwelling Catheter Indwelling Catheter # Voids 1 ABP, PAP, CO, CI - Last Documented Arterial Blood Pressure 149/54 - Exam GENERAL EXAM: 78-year-old female patient, extubated on a BiPAP and she seems to be quite comfortable. She is able to communicate with us by moving her head and saying yes or no. 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 HEAD: Normocephalic/atraumatic. EYES: Normal reaction of pupils, equal size. Conjunctiva pink, sclera white. NOSE: Clear with pink turbinates. THROAT: No erythema or exudates. NECK: No masses, no JVD, no thyroid enlargement, no adenopathy. CHEST: No chest wall deformity. Symmetrical expansion. LUNGS: Equal air entry with crackles in the bilateral posterior bases. CVS: Regular rate and rhythm, normal S1 and S2, no gallops, no murmurs, no rubs ABDOMEN: Soft, nontender. No hepatosplenomegaly, normal bowel sounds, no guarding or rigidity. EXTREMITIES: No clubbing, significant edema in all 4 extremities, no cyanosis, 2+ pulses and upper and lower extremities. The patient is dialysis catheter in the right groin area. MUSCULOSKELETAL: Muscle strength and tone normal. SPINE: No scoliosis or deformity SKIN: No rashes CENTRAL NERVOUS SYSTEM: Intubated, opening up her eyes and following some simple commands as stated. She has significant motor weakness in all 4 extremities. Unable to raise her arms and legs against gravity. - Labs CBC & Chem 7: 06/19/19 05:15 06/19/19 05:15 Labs: Abnormal Lab Results - Last 24 Hours (Table) 06/17/19 06/18/19 06/18/19 Range/Units 05:40 13:07 18:37 WBC (3.8-10.6) k/uL RBC (3.80-5.40) m/uL Hgb (11.4-16.0) gm/dL Hct (34.0-46.0) % MCHC (31.0-37.0) g/dL RDW (11.5-15.5) % Neutrophils # (1.3-7.7) k/uL Chloride (98-107) mmol/L BUN (7-17) mg/dL Creatinine (0.52-1.04) mg/dL POC Glucose (mg/dL) 125 H 150 H (75-99) mg/dL Phosphorus (2.5-4.5) mg/dL Crossmatch See Detail 06/19/19 06/19/19 Range/Units 05:15 05:15 WBC 13.0 H (3.8-10.6) k/uL RBC 2.61 L (3.80-5.40) m/uL Hgb 6.8 L* (11.4-16.0) gm/dL Hct 22.2 L (34.0-46.0) % MCHC 30.9 L (31.0-37.0) g/dL RDW 24.1 H (11.5-15.5) % Neutrophils # 11.3 H (1.3-7.7) k/uL Chloride 109 H (98-107) mmol/L BUN 43 H (7-17) mg/dL Creatinine 2.39 H (0.52-1.04) mg/dL POC Glucose (mg/dL) (75-99) mg/dL Phosphorus 6.0 H (2.5-4.5) mg/dL Crossmatch Assessment and Plan Plan: 1 Acute hypoxemic and hypercapnic respiratory failure related to acute COVID 19 related pneumonia, chest x-ray on 05/31/2019 showed progressive worsening of the multifocal interstitial and alveolar opacities most pronounced in the right midlung. Patient required intubation and placement on mechanical ventilator on 05/31/2019, she was successfully weaned and extubated on 06/04/2019. However today on 06/09/2019 patient has developed a worsening hypoxemia, and she developed bilateral pneumonia with septic shock. On 06/19/2019, the patient is extubated. The patient is currently on a BiPAP at a pressure 15/5 with an FiO2 of 40%. She is able to urinate adequate minute ventilation tidal volumes well on the BiPAP pH is unable to wean herself off the BiPAP. She remains profoundly weak. I think this can be a major problem which would prevent any further weaning on this patient. Note that the patient is still receiving daily dialysis. Her chest x-ray from today is showing no significant interval change in the patient continues to have patchy bilateral pulmonary infiltrates. This is related to Covid 19 pneumonia and MRSA pneumonia. The patient is on the appropriate antibiotic coverage and the patient continues to be on accommodation cefepime and vancomycin. The chest x-ray was reviewed. Blood gases was reviewed. The family has been contacted. I informed the daughter of the changes and worsening a DNR/DNI CODE STATUS with the patient is not being considered for intubation should she fail this BiPAP trial. 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 2 Septic shock related to MRSA pneumonia. Current coverage includes cefepime, and vancomycin. Patient required re-intubation and placement on mechanical ventilation on 06/09/2019. The septic shock is improved and the patient is currently hemodynamically stable 3 acute kidney injury secondary to sepsis and septic shock. the patient is not producing any urine output and she is dialysis dependent. The nephrology is on the case. She has a temporary dialysis catheter in the patient is requiring daily hemodialysis. Dialysis session of dialysis was done today in the intensive care unit. 4 severe leukocytosis secondary to septic shock, improved, the patient is currently hemodynamically stable, and the leukocytosis has premature covered at this point in time 5 A. fib with RVR related to sepsis, the rate is better controlled on Cardizem drip at 7.5 mg an hour 6 acute non-STEMI with elevation of troponins, remains on aspirin 81 mg 7 acute bilateral Covid 19 pneumonia with secondary elevation of the LDH, ferritin related to COVID 19 infectionmy treated with Plaquenil and zinc sulfate, and inflammatory markers including the LDH and the ferritin the CRP levels improved/improving 8 hypertensive heart disease with a concentric LVH and an ejection fraction of 55-60% with secondary pulmonary hypertension with a PA pressure of 54 based on echocardiogram from early May 2019 9 Acute urinary tract infection, related to E. 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 13 Previous history of chronic tobacco dependence Plan Reviewed the chest x-ray Reviewed the blood gases BiPAP at a pressure 15/5 cm of water and FiO2 of 40% Continue other current antibiotic coverage included a combination of cefepime and vancomycin and Diflucan No plans for reintubation should the patient failed this extubation trial. Patient's CODE STATUS is DNR/DNI. Proceed with another session of dialysis today Keep the patient on BiPAP throughout the day and will not utilize any form of nasal cannula for another 24 hours. 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 Condition is critical.This evaluation was done and more than 30 minutes Time with Patient: Greater than 30
--- NOTE | 2019-06-19 12:19 | PN ---
PROGRESS NOTE Patient is seen for followup for acute kidney injury. She was extubated yesterday. She is sitting up in bed. She is quite weak, but following commands. The patient is a DNR code status. She continues to have no significant urine output. She is currently off Levophed. We will arrange for hemodialysis today. We had about 3 L of ultrafiltration yesterday. PHYSICAL EXAMINATION: On examination, blood pressure is 104/58, heart rate 95 per minute, patient is afebrile. She answers simple questions. Examination of lower extremities shows edema 2+ bilaterally. Abdomen is soft, nontender. 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 LABS: Show sodium 140, potassium 3.8, chloride 109, CO2 is 24, BUN 43, creatinine 2.39. ASSESSMENT: 1. Acute kidney injury, acute tubular necrosis, oliguric and hemodialysis dependent, maintained on daily dialysis mainly for ultrafiltration. We will plan for a treatment again today. 2. COVID pneumonia. 3. Hypoxic respiratory failure secondary to pneumonia, currently extubated. 4. Hyperphosphatemia secondary to renal failure, maintained on PhosLo. 5. Generalized debility. 6. Hypokalemia, status post replacement. 7. Sputum culture growing MRSA and Bernadette. 8. Escherichia coli urinary tract infection. 9. Atrial fibrillation, maintained on Cardizem drip. 10.Candiduria, maintained on IV fluconazole. PLAN: Repeat hemodialysis today with UF of about 3 L as tolerated. Next dialysis will be on Friday. MMODL / IJN: [id number] /
[2019-06-19] MEDS: NOREPINEPHRINE 8 MG in SODIUM CHLORIDE 0.9% 250 ML IV SCH (13:03)
[2019-06-19 13:14] LABS: Glucose,Whole Blood 85 mg/dL (75-99)
[2019-06-19 13:50] LABS: Anisocytosis Moderate; Basophils % (A) 0 %; Eosinophils # (A) 0.3 k/uL (0-0.7); Eosinophils % (A) 2 %; HCT 29.1 % (34.0-46.0); Hypochromasia Marked; Lymphocytes # (A) 1.1 k/uL (1.0-4.8); Lymphocytes % (A) 7 %; MCH 26.3 pg (25.0-35.0); MCHC 30.9 g/dL (31.0-37.0); MCV 85.2 fL (80.0-100.0); Mean Platelet Volume 10.7; Microcytosis Slight; Monocytes # (A) 0.4 k/uL (0-1.0); Monocytes % (A) 3 %; Neutrophils # (A) 13.7 k/uL (1.3-7.7); Neutrophils % (A) 87 %; Platelet Count 180 k/uL (150-450); Poikilocytosis Moderate; RBC 3.42 m/uL (3.80-5.40); RDW 22.9 % (11.5-15.5); WBC 15.7 k/uL (3.8-10.6)
[2019-06-19] MEDS: MORPHINE SULFATE 2 MG/ML SYRINGE IVP PRN (14:38)
--- NOTE | 2019-06-19 16:37 | P.PN ---
Subjective Progress Note Date: 06/19/19 Principal diagnosis: COVID pneumonia 78-year-old female with PMH of hypertension presented to the ED for epigastric discomfort and intractable nausea and vomiting. In the ED, she was noted to have an elevated troponin of 0.418 with T-wave inversions on EKG. She was started on aspirin and heparin drip and was admitted for non-ST elevation NM. On 05/27/2019 she was noted to have spiked a fever thought to be possibly related to UTI or COVID 19 infection. Troponins were trended which went from 0.195-0.190. Her troponins were related to demand ischemia probably from sepsis . Influenza A and B was negative. Urine culture did come back positive for E. coli that was sensitive to Rocephin. COVID testing was subsequently positive. She was initiated on hydroxychloroquine, azithromycin, Rocephin, zinc and vitamin C. Infectious disease was consulted and discontinued her Rocephin and azithromycin. Echocardiogram was done which showed an EF of 55-60%. Her respiratory status worsened and to 05/31/2019. Her oxygen requirements increased from 8 L nasal cannula to 15 L high flow. It was noted that she was DO NOT RESUSCITATE and DO NOT INTUBATE. I had a long conversation with the patient and she was agreeable for intubation. Pulmonology was consulted and she was moved to the ICU for elective intubation. Sedation holiday was attempted on June 01 and June 02. She did have diarrhea for which she was given cholestyramine, C. diff was negative. Patient was extubated on 06/04/2019. She did go into atrial flutter on telemetry on 06/04/2019 for which she was started on therapeutic Lovenox by cardiology. Her Rocephin was started on 06/05/2019 for total of 3 doses to treat UTI. Her respiratory status continued to worsen after extubation patient was reintubated on 06/09/2019. On June 09 patient was noted to be in A. fib with rate of 103-120 bpm for which she was started on Cardizem drip. Patient required pressors to maintain BP and was started on norepinephrine IV. Vancomycin was added to her medication regimen of cefepime and hydroxychloroquine was restarted for worsening leukocytosis and inflammatory markers. Urine, blood and sputum cultures were collected. Sputum culture grew MRSA and Berandette albicans. Her urine culture grew bernadette albicans and she was started on Fluconazole IV. Her renal function and urine production continued to worsen and nephrology was consulted. Dialysis catheter was placed on 06/11/2019 and dialysis was initiated. Patient underwent sedation holiday on June 14 and , she has been minimally responsive and unable to follow commands up until this time. Her condition continues to remain critical. She was extubated on 06/18/2019 and has been on BiPAP since. There are plans to not reintubate her if she fails BiPAP. Patient was seen and examined. Patient is more responsive today and following simple commands off sedation. Appears to be considerably weak. Extubated yesterday currently on BiPAP. Chest x-ray shows no changes in bibasilar reticular interstitial airspace disease. Hemoglobin 6.8 today, one PRBC ordered. According to RN, discussed with family, plans to not reintubate if fails BiPAP. Plans for comfort care if patient fails BiPAP. Objective - Vital Signs Vital signs: Vital Signs Temp 97.6 F 06/19/19 13:00 Pulse 98 06/19/19 15:00 Resp 23 06/19/19 15:00 BP 118/59 06/19/19 15:00 Pulse Ox 91 L 06/19/19 15:00 Intake & Output 06/18/19 06/19/19 06/19/19 18:59 06:59 18:59 Intake Total 876.418 325.881 614 Output Total 3020 20 10 Balance -2143.582 305.881 604 Weight 83.1 kg 81.8 kg Intake: IV 460 202 304 Cefepime 2 gm In Sodium 100 100 Chloride 0.9% 100 ml @ 200 mls/hr IVPB Q24HR [facility] Rx#:[id number] Fluconazole in NaCl,Iso- 100 50 Osm 100 mg In Saline 1 50ml.bag @ 50 mls/hr IVPB DAILY [facility] Rx#:[id number] Normal Saline Pressure 75 72 54 Bag Sodium Chloride 0.9% 1, 185 130 100 000 ml @ 20 mls/hr IV . Q24H [facility] Rx#:[id number] Intake, IV Titration 121.418 123.881 Amount Diltiazem 125 mg In 104.25 116.25 Sodium Chloride 0.9% 100 ml @ Per Protocol IV .Q0M [facility] Rx#:[id number] Norepinephrine 8 mg In 17.168 7.631 Sodium Chloride 0.9% 250 ml @ 0.05 MCG/KG/MIN 7. 153 mls/hr IV .Q24H [facility] Rx#:[id number] Oral 60 Tube Feeding 205 Blood Product 310 Rc As-1 Unit 310 [id number] Other 30 Output: Urine 20 20 10 Hemodialysis 3000 Other: Voiding Method Indwelling Catheter Indwelling Catheter Indwelling Catheter # Voids 1 ABP, PAP, CO, CI - Last Documented Arterial Blood Pressure 153/47 - Exam General: [non toxic], [dyspnea on BiPAP], [appears at stated age] Derm: [warm], [dry] Head: [atraumatic], [normocephalic], [symmetric] Eyes: [EOMI], [no lid lag], [anicteric sclera] Mouth: [no lip lesion], [mucus membranes moist] Cardiovascular: [S1S2 ireg], [tachycardia], [positive DP pulse bilateral], Lungs: [Coarse breath sounds bilaterally], [no rhonchi, no rales] , [accessory muscle use] Abdominal: [soft], [ nontender to palpation], [no guarding], [no appreciable organomegaly] Ext: [no gross muscle atrophy], [2 + pitting edema in all 4 extremities], [no contractures], [right groin dialysis catheter] Neuro: [Unable to determine] Psych: [Unable to determine] - Labs CBC & Chem 7: 06/19/19 13:10 06/19/19 05:15 Labs: Abnormal Lab Results - Last 24 Hours (Table) 06/17/19 06/18/19 06/19/19 Range/Units 05:40 18:37 05:15 WBC 13.0 H (3.8-10.6) k/uL RBC 2.61 L (3.80-5.40) m/uL Hgb 6.8 L* (11.4-16.0) gm/dL Hct 22.2 L (34.0-46.0) % MCHC 30.9 L (31.0-37.0) g/dL RDW 24.1 H (11.5-15.5) % Neutrophils # 11.3 H (1.3-7.7) k/uL Chloride (98-107) mmol/L BUN (7-17) mg/dL Creatinine (0.52-1.04) mg/dL POC Glucose (mg/dL) 150 H (75-99) mg/dL Phosphorus (2.5-4.5) mg/dL Crossmatch See Detail 06/19/19 06/19/19 Range/Units 05:15 13:10 WBC 15.7 H (3.8-10.6) k/uL RBC 3.42 L (3.80-5.40) m/uL Hgb 9.0 L D (11.4-16.0) gm/dL Hct 29.1 L (34.0-46.0) % MCHC 30.9 L (31.0-37.0) g/dL RDW 22.9 H (11.5-15.5) % Neutrophils # 13.7 H (1.3-7.7) k/uL Chloride 109 H (98-107) mmol/L BUN 43 H (7-17) mg/dL Creatinine 2.39 H (0.52-1.04) mg/dL POC Glucose (mg/dL) (75-99) mg/dL Phosphorus 6.0 H (2.5-4.5) mg/dL Crossmatch Assessment and Plan Assessment: Acute hypoxic respiratory failure with Septic shock secondary to COVID 19 and MRSA pneumonia Acute kidney injury with metabolic acidosis from septic shock requiring dialysis Anemia AFib with RVR UTI Hypertension Elevated troponin likely demand ischemia Hip tumor Patient was extubated on 06/18/2019. Chest x-ray shows minimal improvement. Leukocytosis of 24.3-11.4-19.2-17.4-15.7 with neutrophilia and lymphopenia pointing towards bacterial infection. Sputum culture positive MRSA and Bernadette albicans. Urine culture positive Bernadette albicans. Previous urine culture positive for E. coli. Pro-calcitonin, LDH, ferritin and CRP decreasing. Plans: Continue cefepime. Continue fluconazole. Continue vancomycin. Infectious disease following. Continue trending inflammatory markers. No plans to reintubated if fails extubation. BUN 59-49-51, creatinine 2.16-1.95-2.32-2.28-2.44. Likely prerenal from septic shock. Plans: Continue calcium acetate. Continue sodium bicarb supplementation. Nephrology following. Dialysis today. Hemoglobin dropped from 6.8-9.0 post 1 PRBC today. No obvious source of bleed. Plans: DC Lovenox and start subcut Heparin. Follow repeat CBC. Plans: Lovenox discontinued due to drop in hemoglobin, continue subcutaneous heparin. Continue Cardizem drip. Maintain potassium greater than 4 and magnesium greater than 2. Follow cardiology recommendations. Telemetry monitoring. Plans: Completed treatment for UTI. BP 136/40. Plans: Lisinopril discontinued for acute kidney injury. Metoprolol discontinued for hypotension. Currently on pressors. Monitor vitals, adjust medications as necessary. Her troponins are flat. Troponin 0.48, 0.195, 0.190. Likely demand ischemia f rom sepsis. Echocardiogram with no wall motion abnormalities. Plans: Cardiology evaluated, nothing further to do. Plans: Adequate pain management. [Patient extubated to BiPAP. Plans on no reintubation if fails BiPAP, family agreeable and aware. Getting dialysis today. Pulmonology, infectious disease, nephrology, cardiology following. Her prognosis is poor. Case discussed with Dr. Neal.]
--- NOTE | 2019-06-19 16:55 | PN ---
PROGRESS NOTE DATE OF SERVICE: 06/19/2019 REASON FOR FOLLOWUP: Pneumonia. INTERVAL HISTORY: The patient is currently afebrile. She is hemodynamically stable. Not on any pressor support. The patient remains to be on BiPAP. Slightly lethargic and unable to provide any history. No significant changes reported by nursing staff. PHYSICAL EXAMINATION: Blood pressure is 153/47, pulse of 90, temperature 97.6. She is 99% on BiPAP. General description is an elderly female lying in bed in no distress. Respiratory system: Unlabored breathing, decreased breath sounds on the bases. No wheeze. Heart: S1, S2. Regular rate and rhythm. ABDOMEN: Soft. No tenderness. There is distention. LABS: Hemoglobin 9, white count 15.7, BUN of 46, creatinine is 2.39. DIAGNOSTIC IMPRESSION AND PLAN: 1. Patient with acute respiratory failure, multifactorial with a component of pneumonia. Sputum has been MRSA. Patient is covered with vancomycin. To continue to finish a course of therapy. 2. Patient with urinary tract infection, urine with yeast, covered with Diflucan, continue. 3. Overall prognosis remains to be guarded. MMODL / IJN: [id number] /
[2019-06-19 18:33] LABS: Glucose,Whole Blood 75 mg/dL (75-99)
[2019-06-20 00:09] LABS: Glucose,Whole Blood 72 mg/dL (75-99)
[2019-06-20] MEDS: INSULIN ASPART (NovoLOG) 100 UNIT/ML VIAL SQ SCH ×4 (00:21→18:17)
[2019-06-20] MEDS: HEPARIN SODIUM,PORCINE 5,000 UNIT/ML 1 ML VIAL SQ SCH ×3 (00:25→15:41)
[2019-06-20 05:07] LABS: Glucose,Whole Blood 79 mg/dL (75-99)
[2019-06-20] MEDS: MORPHINE SULFATE 2 MG/ML SYRINGE IVP PRN ×2 (05:10→11:59)
[2019-06-20 05:13] LABS: Anisocytosis Moderate; HCT 27.8 % (34.0-46.0); HGB 9.1 gm/dL (11.4-16.0); Hypochromasia Marked; MCH 27.3 pg (25.0-35.0); MCHC 32.7 g/dL (31.0-37.0); MCV 83.6 fL (80.0-100.0); Mean Platelet Volume 11.6; Microcytosis Slight; Platelet Count 179 k/uL (150-450); Poikilocytosis Moderate; RBC 3.33 m/uL (3.80-5.40); RDW 22.9 % (11.5-15.5); WBC 20.8 k/uL (3.8-10.6)
[2019-06-20 05:24] LABS: Calcium 8.4 mg/dL (8.4-10.2); Magnesium 2.2 mg/dL (1.6-2.3); Potassium 3.7 mmol/L (3.5-5.1)
[2019-06-20 05:30] LABS: Vancomycin,Random 21.2 ug/mL
[2019-06-20 05:43] LABS: Band Neutrophils % 2 %; Lymphocytes # (M) 1.25 k/uL (1.0-4.8); Metamyelocytes # (M) 0.62 k/uL (0); Metamyelocytes % 3 %; Monocytes # (M) 0.62 k/uL (0-1.0); Neutrophils % (M) 87 %; Nucleated Red Blood Cells 0 /100 WBC (0-0); Total Cells Counted 200
--- NOTE | 2019-06-20 06:40 | XR ---
EXAMINATION TYPE: XR chest 1V portable DATE OF EXAM: 06/20/2019 HISTORY: Pneumonia. REFERENCE: Previous study dated 06/19/2019. FINDINGS: The patient's left internal jugular catheter remains in place. Its tip is within the right atrium. There continues to be bilateral areas of patchy infiltrate. The heart is mildly prominent. I suspect tiny effusions. IMPRESSION: NO SIGNIFICANT INTERVAL CHANGE IN THE APPEARANCE OF THE CHEST.
[2019-06-20] MEDS: CALCIUM ACETATE 667 MG TAB PO SCH ×3 (07:20→15:15)
[2019-06-20] MEDS ORDERED: DEXTROSE 5% IN WATER 1,000 ML IV ONE (08:11)
[2019-06-20] MEDS: ASPIRIN 81 MG PO SCH (08:29)
[2019-06-20] MEDS: ASCORBIC ACID 500 MG TAB PO SCH ×2 (08:29→20:46)
[2019-06-20] MEDS: PARoxetine 10 MG TAB PO SCH (08:30)
[2019-06-20] MEDS: ZINC SULFATE 220 MG CAP PO SCH (08:30)
[2019-06-20] MEDS: CEFEPIME 2 GM in SODIUM CHLORIDE 0.9% 100 ML IVPB SCH (08:37)
[2019-06-20] MEDS: methylPREDNISolone SOD SUCCI 40 MG/ML 1 ML VIAL IV SCH (08:37)
[2019-06-20] MEDS: PANTOPRAZOLE 40 MG/10 ML VIAL IVP SCH (08:38)
[2019-06-20] MEDS: FLUCONAZOLE IN NACL,ISO-OSM 100 MG in SALINE 1 50ML.BAG IVPB SCH (09:59)
[2019-06-20 10:16] VITALS: BMI 31.1
[2019-06-20] MEDS ORDERED: MVI, ADULT NO.4 WITH VIT K 10 ML, TRACE (CONC-1ML/DOSE) 1 ML, PARENTERAL ELECTROLYTES 2... IV ONE ×4 (11:00)
--- NOTE | 2019-06-20 11:13 | PN ---
PROGRESS NOTE Patient is seen for followup for acute kidney injury associated with underlying Covid infection. Patient remains anuric and is dialysis dependent. She has been getting dialysis on a daily basis, mainly for ultrafiltration currently. She has been extubated. However, patient is quite weak. She follows commands. We had about 1.5 L of fluid taken off yesterday. On examination today, discussed with nursing staff. Patient is comfortable. Vital signs show blood pressure 124/71, heart rate 99 per minute, she has been afebrile. The patient has been quite weak, but follows commands. She is not eating much at this time. Patient remains with significant edema and weeping from upper and lower extremities, although this has improved over the past week. LABS: Show sodium 140, potassium 3.7, chloride 111, CO2 is 19, BUN 38, creatinine 2.54 and hemoglobin 9.1 g/dL. ASSESSMENT: 1. Acute kidney injury, acute tubular necrosis with underlying COVID infection, currently hemodialysis dependent, getting dialysis on a daily basis mainly for significant 3rd spacing and volume overload. We will plan for a treatment tomorrow goal UF of 2-2.5 L as tolerated. 2. Covid pneumonia status post treatment, currently extubated. 3. Hypoxic respiratory failure secondary to pneumonia, status post extubation about 3 days ago. 4. Escherichia coli urinary tract infection. 5. Sputum culture also growing MRSA and Bernadette maintained on antibiotics. 6. Hypokalemia, status post replacement. 7. Hyperphosphatemia associated with renal failure, maintained on phosphate binders. 8. Generalized debility versus ICU neuropathy or critical care neuropathy to be evaluated by Neurology. 9. Candiduria, maintained on IV fluconazole. PLAN: Hemodialysis in a.m., goal UF about 2.5 L as tolerated. The patient usually requires Levophed during treatment and then we were able to get Levophed off. MMODL / IJN: [id number] /
--- NOTE | 2019-06-20 11:54 | P.PN ---
Subjective Progress Note Date: 06/20/19 This is a 78-year-old female patient with respiratory failure secondary to Coumadin 19 related pneumonia. A short initially admitted on 05/26/2019 for a UTI and Covid pneumonia. Her initial urine cultures came back positive for E. coli. At the later stage, she was found to have a Covid 19 pneumonia with pulmonary complications. The patient remains in the intensive care unit intubated on a mechanical ventilator. Note that the patient was intubated on 05/31/2019. She was extubated on 06/04/2019. However on 06/09/2019 the patient worsening hypoxemia and she had to be reintubated and placed on mechanical ventilator. She also developed a septic shock related to an MRSA pneumonia. His sputum culture from 06/08/2019 was positive for MRSA. She has other ongoing issues for now including acute kidney injury and the patient remains anuric receiving hemodialysis. The patient also developed an acute non-STEMI with a troponin maxed at 0.4 started on a combination of aspirin and heparin treating an acute non-ST segment elevation myocardial infarction. The patient remains sedated and paralyzed. She is on propofol and Pneumovax. She remains on a mechanical ventilator with assist control mode with a rate of 30, tidal volume 350 and FiO2 40% with a PEEP of 15. She remains on broad-spectrum antibiotics and current antibiotic coverage includes IV cefepime and vancomycin. Diflucan was also added at the sputum was positive for Bernadette multiple occasions. She is also receiving hydroxychloroquine regarding the Covid 19 pneumonia. She is on IV Solu-Medrol 40 mg every 12 hours. She is still hypotensive requiring norepinephrine infusion for blood pressure support and he was being titrated according to the patient's BP response. Note that the patient was started on dialysis for acute kidney injury on 06/11/2019. She has a temporary dialysis catheter inserted. She 2 sessions of hemodialysis since yesterday. She is not producing any urine for now. Note that along with a septic shock, the patient developed severe leukocytosis. White cell count was high as 90.6. It has gradually improved over the past few days. On today's evaluation of 06/14/2019, the patient remains on propofol at 75 g and the patient was taken off the Nimbex. The patient remains on essentially the same ventilator settings which include a tidal volume of 350 with a PEEP of 10 and FiO2 of 40% with a tidal volume of 350 and the respiratory rate of 30. The morning blood gases showed a pH of 7.19 with a pCO2 of 46 and pO2 of 83. The patient seems to have compliant lungs and the patient was requesting higher volumes. For that reason, I increased the tidal volume of 03/30/1947. I do not to be down to 8. I started the patient was also riding the mechanical ventilator at the rate of 30 and I dropped a respiratory rate down to 22. Her chest x-ray was showing some improvement in the pneumonia. There is still feasible breast in the lung bases consistent with infiltration. The patient is still receiving enteral feeding for nutritional support. The patient as mentioned has Covid 19 infection and a bacterial pneumonia in the form of MRSA. We are somewhat inclined not to give Actemra. The interleukin level from few days ago was 56. The patient has developed an acute kidney injury. The patient is producing minimal amount of urine output and she is going to undergo dialysis today. The net fluid balance is +1.8 and 2.7 L over the past 24 hours. . On today's evaluation of 06/15/2019, the patient is being seen in follow-up in the intensive care unit. This morning, the patient remains of Nimbex. The patient is sedated with propofol running at 65 g per KG per minute. The patient is also on Cardizem at 7.5 mg an hour. The patient remains on assist control mode of ventilation. She is at the rate of 22 with a tidal volume of 500 and FiO2 of 40% with a PEEP of 5. The peak pressures 22. The static airway pressure is 11. The patient's blood gas showed a pH of 7.43 with a pCO2 of 28 and pO2 of 76. The patient a follow-up chest x-ray that showed diffuse patchy breath and pulmonary infiltrates, essentially stable compared to yesterday. Endotracheal tube was seen around 1.5 cm above the aung. The plan is to undergo another session of hemodialysis today. The patient has diffuse edema and third spacing all 4 extremities specially in the legs and the patient has been in a significant amount of fluid balance positivity. The patient underwent hemodialysis yesterday. The white cell count is at 11.4. Hemoglobin is at 7.4. The patient's sodium level is at 129. BUN is 56 with a creatinine of 1.9. The LDH level has declined down to 564. The CRP level is down to 15.2. The white cell count is also improved down to 11.4 and the patient's pro-calcitonin level is also improving. As such, the septic bacterial pneumonia has been improving with improvement in hemodynamics and improvement in the pro-calcitonin level and white count. On 06/16/2019, the patient is being seen in follow-up in the intensive care unit. This morning, the patient is been taken off sedation and the patient is being given a sedation holiday. At the time of my evaluation, she was still very much some limited and sleepy and sedated and the patient was not following any commands nor she wasn't withdrawing to any painful stimulation. I requested to keep the patient off propofol for now. She remains on Cardizem at 7.5 mg an hour to control her atrial fibrillation. She remains on a mechanical ventilator with essentially the same ventilator settings which included control of 22, tidal volume of 350, FiO2 of 40% and a PEEP of 5. Peak and static airway pressures are not elevated PA chest x-ray shows stable about pulmonary infiltrates dated to Covid 19 related pneumonia in addition to a superimposed bacterial pneumonia which improved clinically. Mother the patient is afebrile. The patient's white cell count is improved. The patient's pro-calcitonin level is declining is down to 12.2. Also, the patient's blood. Showed a pH of 7.48 with a pCO2 of 29 and pO2 of 81 is with an FiO2 of 40%. The patient is still on examination antibiotics patient is receiving cefepime and vancomycin and Diflucan. She remains on vitamin AF which is running at 26 an hour for enteral feeding and nutritional support. She is undergoing daily dialysis. Her fluid balance is been negative as the patient has been essentially undergoing daily dialysis with ultrafiltration. The plan is to proceed another session of dialysis today. Her current weight is 86 kg which is 1 kg less compared to yesterday. Had extremity edema is also improving. She is afebrile for now. On 06/17/2019 and seeing the patient in follow-up. The patient was taken off sedation since yesterday and the patient of sedation this morning also. As such the patient has been off sedation for around 24 hours. She is able to respond to some simple commands and she is able to nod her head and regular still wasn't fingers to request. Nevertheless, she is unable to raise her arms or legs or raise head of the bed. We have decided to keep it off sedation for now. She is undergoing hemodialysis this morning. She remains on a mechanical ventilator. She is an assist-control mode at the rate of 22 with a tidal volume of 500 and FiO2 of 40% with a PEEP of 5. The left ear showed a pH of 7.48 with a pCO2 of 30 and pO2 of 11. She is on a Cardizem drip at 7.5 mg an hour. She is levo fed for now. She remains on cefepime and Diflucan and vancomycin. As stated earlier the patient was treated for a MRSA pneumonia that complicated Covid 19 related pneumonia. The most recent random vancomycin level from yesterday was 27.4. The patient otherwise is doing well. The morning hemoglobin was at 6.3 and the patient received a unit of packed RBC. Morning blood gases in the above-mentioned vent setting showed a pH of 7.48 with a pCO2 of 30 and pO2 of 11. The chest x-ray from this morning showed a stable bilateral pulmonary infiltrates although slightly improved compared to yesterday's chest x-ray and t he tubes and lines were all in place. The patient is afebrile. The goal is to do some further ultrafiltration as the patient is still significant signs of fluid overload. Furthermore, will communicate with the family and according to them the patient did not want any long-term ventilator support such as tracheostomy and if she fails extubation the plan is not to reintubate based on the patient's and the family's wishes. On 06/18/2019 on seeing the patient for a follow-up. The patient has been off sedation for the past 48 hours. She is moving her arms and she is directing towards to tube asking him to be removed. She is extremely weak. Her weaning parameters remain borderline. I'm not SURE THAT SHE IS GOING TO TOLERATE EXTUBATION.. Based on all this, I contacted the family and I told him that we are considering extubating this patient or BiPAP with the possibility of her not tolerating this wean and going into respiratory failure again. Based on my conversation with the daughter, she was very much agreeable to the affected the patient did not want long-term support being and ventilation or any form of ventilators or dialysis and he was very reasonable for her not to reintubate should the patient failed extubation to BiPAP. For now, the plan is to extubate the patient failed BiPAP. Her current ventilator settings are as follows. She is on assist control mode at the rate of 22 FiO2 of 500 mg of 40% with a PEEP of 5. Her blood gases showed a pH of 7.49 with a pCO2 of 29 and pO2 of 11. She is on IV fluids with normal saline at the rate of 10 mL an hour. She remains on Cardizem drip for rate control regarding her atrial fibrillation at 7.5 mg an hour. She is on no other pressors for now. She's been off sedation for more than 48 hours. She started tolerating her enteral feeding for nutritional support with vital high protein. I gave her a brief spontaneous breathing trial with a pressure support of 10 and a PEEP of 5 and she did well and she was able to generate tidal volumes of more than 400. Based on that, I made the plan to extubate this patient to a BiPAP at a pressure 15/5 cm of water with an FiO2 of 50% and proceed accordingly. She remains on cefepime. She remains on vancomycin. She remains on Diflucan. The chest x-ray shows diffuse in terstitial and patchy airspace disease most on the lung bases. The patient is afebrile. The white cell count is down to 17.4. The patient has hemoglobin of 7.6. The patient is undergoing daily dialysis. The last dialysis session was yesterday and a creatinine from this morning is down to 2.4. Other Arthritis are all well maintained with a potassium level of 3.3 which needs to be replaced. Vancomycin level from today's at 20.7. On 06/19/2019, the patient remains in intensive care unit. She's been off sedation for the past 72 hours and the patient has been extubated and currently is on a BiPAP pressure of 15/5 cm of water and FiO2 of 40%. The plan is to proceed with another session of dialysis this afternoon. The patient is profoundly weak. She is able to respond to questions and she seems to be appropriate. She is wiggling her toes and fingers. Nevertheless she is unable to raise it up against gravity. She is able to move her head and say yes or no. She has no significant cough or sputum production. She is generating tidal volumes of about 400 while being on mechanical noninvasive partial pressure ventilation. Her respiratory rate remains less than 30. Overnight, she required medication for pain and she was given morphine. She is nothing by mouth for now. Unable to come off the BiPAP as the patient was taken off the BiPAP for a few minutes yesterday to a nasal cannula and she failed and she had to be placed back on the BiPAP. She remains on cefepime. She remains on vancomycin. She remains on Diflucan. She is on no pressors. She is on Cardizem drip for rate control regarding her chronic atrial fibrillation. She has significant amount of swelling in all 4 extremities pH is going to undergo another session of dialysis today. She is afebrile. Urine output is diminished and the patient is receiving daily hemodialysis. The morning hemoglobin was at 6.8. She showed no signs of any acute GI bleed. She'll be given units of packed RBC today. I contacted the daughter and I informed her of these changes. We'll keep the patient on the BiPAP for another 24 hours and monitor progress. On 06/20/2019, the patient remains on a BiPAP at a pressure 15/5 cm of water and FiO2 of 40%. She is awake. She is communicating. She remains profoundly weak. I'm not seeing much improvement in her motor functions and his physical power. She is able to communicate. She is sluggish. She is however able to tolerate the BiPAP without any major difficulties and she is on a full face mask for now. Note that she has been able to eat based on the fact that she's been BiPAP dependent. I'm considering to start her on low-dose TPN for nutritional supp ort. The patient underwent hemodialysis yesterday. No plans for hemodialysis today. She is still able to generate a tidal volume of 400 and her respiratory rate is in the low 20s. She remains on the same antibiotic coverage which includes vancomycin and Diflucan. She is also on cefepime. She is afebrile. Chest x-ray findings are stable, probably there is some improved infiltration of the lung base on the right. For the most part, there is no significant interval change in the appearance of the chest x-ray. The white cell count is up to 20. Hemoglobin stable at 9.1. She is producing minimal amount of urine output in order of 5-10 mL per shift. Creatinine is at 2.5 with a BUN of 38. The serum bicarbs at 19. She remains in atrial fibrillation. She is on a Cardizem drip at the rate of 7.5 mg an hour for rate control. She received 2 units of packed RBC yesterday and she is not showing any signs of bleeding. Objective - Vital Signs Vital signs: Vital Signs Temp 97.6 F 06/20/19 08:00 Pulse 101 H 06/20/19 10:00 Resp 26 H 06/20/19 10:00 BP 121/58 06/20/19 10:00 Pulse Ox 98 06/20/19 09:00 Intake & Output 06/19/19 06/20/19 06/20/19 18:59 06:59 18:59 Intake Total 711.000 397 74 Output Total 615 1505 10 Balance 96.000 -1108 64 Weight 79.7 kg 79.7 kg Intake: IV 352 192 74 Cefepime 2 gm In Sodium 100 Chloride 0.9% 100 ml @ 200 mls/hr IVPB Q24HR [facility] Rx#:[id number] Dextrose 5% in Water 1, 30 000 ml @ 20 mls/hr IV . Q24H ONE Rx#:[id number] Fluconazole in NaCl,Iso- 50 Osm 100 mg In Saline 1 50ml.bag @ 50 mls/hr IVPB DAILY [facility] Rx#:[id number] Normal Saline Pressure 72 72 24 Bag Sodium Chloride 0.9% 1, 130 120 20 000 ml @ 20 mls/hr IV . Q24H [facility] Rx#:[id number] Intake, IV Titration 49.000 205 Amount Diltiazem 125 mg In 205 Sodium Chloride 0.9% 100 ml @ Per Protocol IV .Q0M [facility] Rx#:[id number] Norepinephrine 8 mg In 49.000 Sodium Chloride 0.9% 250 ml @ 0.05 MCG/KG/MIN 7. 153 mls/hr IV .Q24H [facility] Rx#:[id number] Blood Product 310 Rc As-1 Unit 310 [id number] Output: Urine 15 5 10 Stool 600 Hemodialysis 1500 Other: Voiding Method Indwelling Catheter Indwelling Catheter ABP, PAP, CO, CI - Last Documented Arterial Blood Pressure 126/48 - Exam GENERAL EXAM: 78-year-old female patient, extubated on a BiPAP and she seems to be quite comfortable. She is able to communicate with us by moving her head and saying yes or no. Otherwise, motor function is extremely weak and she is unable to move her arms or legs against gravity patient continues to be able to wiggle her fingers and have a very weak manager creative with her hand. HEAD: Normocephalic/atraumatic. EYES: Normal reaction of pupils, equal size. Conjunctiva pink, sclera white. NOSE: Clear with pink turbinates. THROAT: No erythema or exudates. NECK: No masses, no JVD, no thyroid enlargement, no adenopathy. CHEST: No chest wall deformity. Symmetrical expansion. LUNGS: Equal air entry with crackles in the bilateral posterior bases. CVS: Regular rate and rhythm, normal S1 and S2, no gallops, no murmurs, no rubs ABDOMEN: Soft, nontender. No hepatosplenomegaly, normal bowel sounds, no guarding or rigidity. EXTREMITIES: No clubbing, significant edema in all 4 extremities, no cyanosis, 2+ pulses and upper and lower extremities. The patient is dialysis catheter in the right groin area. MUSCULOSKELETAL: Muscle strength and tone normal. SPINE: No scoliosis or deformity SKIN: No rashes CENTRAL NERVOUS SYSTEM: Intubated, opening up her eyes and following some simple commands as stated. She has significant motor weakness in all 4 extremities. Unable to raise her arms and legs against gravity. - Labs CBC & Chem 7: 06/20/19 05:06 06/20/19 05:06 Labs: Abnormal Lab Results - Last 24 Hours (Table) 06/19/19 06/20/19 06/20/19 Range/Units 13:10 00:08 05:06 WBC 15.7 H (3.8-10.6) k/uL RBC 3.42 L (3.80-5.40) m/uL Hgb 9.0 L D (11.4-16.0) gm/dL Hct 29.1 L (34.0-46.0) % MCHC 30.9 L (31.0-37.0) g/dL RDW 22.9 H (11.5-15.5) % Neutrophils # 13.7 H (1.3-7.7) k/uL Neutrophils # (Manual) (1.3-7.7) k/uL Metamyelocytes # (Man) (0) k/uL Chloride 111 H (98-107) mmol/L Carbon Dioxide 19 L (22-30) mmol/L BUN 38 H (7-17) mg/dL Creatinine 2.54 H (0.52-1.04) mg/dL Glucose 72 L (74-99) mg/dL POC Glucose (mg/dL) 72 L (75-99) mg/dL Phosphorus 6.0 H (2.5-4.5) mg/dL 06/20/19 Range/Units 05:06 WBC 20.8 H (3.8-10.6) k/uL RBC 3.33 L (3.80-5.40) m/uL Hgb 9.1 L (11.4-16.0) gm/dL Hct 27.8 L (34.0-46.0) % MCHC (31.0-37.0) g/dL RDW 22.9 H (11.5-15.5) % Neutrophils # (1.3-7.7) k/uL Neutrophils # (Manual) 18.50 H (1.3-7.7) k/uL Metamyelocytes # (Man) 0.62 H (0) k/uL Chloride (98-107) mmol/L Carbon Dioxide (22-30) mmol/L BUN (7-17) mg/dL Creatinine (0.52-1.04) mg/dL Glucose (74-99) mg/dL POC Glucose (mg/dL) (75-99) mg/dL Phosphorus (2.5-4.5) mg/dL Assessment and Plan Plan: 1 Acute hypoxemic and hypercapnic respiratory failure related to acute COVID 19 related pneumonia, chest x-ray on 05/31/2019 showed progressive worsening of the multifocal interstitial and alveolar opacities most pronounced in the right midlung. Patient required intubation and placement on mechanical ventilator on 05/31/2019, she was successfully weaned and extubated on 06/04/2019. On 06/20/2019, the patient remains extubated. The patient is currently on a BiPAP at a pressure 15/5 with an FiO2 of 40%. She was extubated approximately 72 to hours ago. She was able to tolerate extubation. Nevertheless, she remained BiPAP dependent at a pressure 15/5 cm of water. Chest x-ray findings remain essentially unchanged. The patient is not receiving any sedation. The patient is profoundly weak and she has significant critical illness polyneuropathy and myopathy. She is able to communicate with us. She is able to wiggle her fingers and she is unable to raise them against gravity. This is obviously an ongoing concern for this patient and she is not ready for any further weaning off the BiPAP as the patient is still very weak and obviously she would not be able to generate enough cough and swallow. I am still very much concerned about her outcome. Note that she has a DNR/DNI CODE STATUS and the patient will not be reintubated should she fail BiPAP treatment for now. This is discussed with the patient and her family. 2 Septic shock related to MRSA pneumonia. Current coverage includes cefepime, and vancomycin. Patient required re-intubation and placement on mechanical ventilation on 06/09/2019. The septic shock is improved and the patient is currently hemodynamically stable 3 acute kidney injury secondary to sepsis and septic shock. the patient is not producing any urine output and she is dialysis dependent. The nephrology is on the case. She has a temporary dialysis catheter in the patient is requiring daily hemodialysis. The patient's last hemodialysis session was yesterday. She was very much undergoing daily dialysis. No dialysis will be done today. Case was discussed with nephrology. 4 severe leukocytosis secondary to septic shock, improved, and the white cell count is at 20.8 for now 5 A. fib with RVR related to sepsis, the rate is better controlled on Cardizem drip at 7.5 mg an hour 6 acute non-STEMI with elevation of troponins, remains on aspirin 81 mg 7 acute bilateral Covid 19 pneumonia with secondary elevation of the LDH, ferritin related to COVID 19 infectionmy treated with Plaquenil and zinc sulfate, and inflammatory markers including the LDH and the ferritin the CRP levels improved/improving 8 hypertensive heart disease with a concentric LVH and an ejection fraction of 55-60% with secondary pulmonary hypertension with a PA pressure of 54 based on echocardiogram from early May 2019 9 Acute urinary tract infection, related to E. 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 13 Previous history of chronic tobacco dependence 14 anemia with a stable hemoglobin of 9.1 15 NPO status 16 profound motor weakness likely due to a combination of critical illness polyneuropathy and myopathy Plan We'll start the patient on some low-dose TPN, provide somewhat between 50-70% of the caloric requirements not to introduce significant amount of volume BiPAP at a pressure 15/5 cm of water and FiO2 of 40% Continue other current antibiotic coverage included a combination of cefepime and vancomycin and Diflucan No plans for reintubation should the patient failed this extubation trial. Patient's CODE STATUS is DNR/DNI. No dialysis for today Keep the patient on BiPAP throughout the day and will not utilize any form of nasal cannula for another 24 hours. The patient is not ready for any oral intake or swallow Keep the Cardizem drip at 7.5 mg an hour Chest x-ray was reviewed and there is no major interval change Consultants neurology in a.m. and consider IVIG regarding the possibility of cardiac illness polyneuropathy The diagnosis from the soft tissue mass biopsy barrel turner to be sarcoma which adds another bad prognostic sign the patient's case Case was discussed with the daughter over the phone We'll continue to follow we'll continue the supportive care for now. Condition is critical.This evaluation was done and more than 30 minutes Time with Patient: Greater than 30
[2019-06-20] MEDS: NOREPINEPHRINE 8 MG in SODIUM CHLORIDE 0.9% 250 ML IV SCH (11:55)
[2019-06-20 12:07] LABS: Glucose,Whole Blood 85 mg/dL (75-99)
[2019-06-20] MEDS: DILTIAZEM 125 MG in SODIUM CHLORIDE 0.9% 100 ML IV SCH (12:11)
[2019-06-20 12:28] LABS: Ionized Calcium 5.1 mg/dL (4.5-5.3)
--- NOTE | 2019-06-20 17:58 | P.PN ---
Subjective Progress Note Date: 06/20/19 Principal diagnosis: COVID pneumonia 78-year-old female with PMH of hypertension presented to the ED for epigastric discomfort and intractable nausea and vomiting. In the ED, she was noted to have an elevated troponin of 0.418 with T-wave inversions on EKG. She was started on aspirin and heparin drip and was admitted for non-ST elevation VT. On 05/27/2019 she was noted to have spiked a fever thought to be possibly related to UTI or COVID 19 infection. Troponins were trended which went from 0.195-0.190. Her troponins were related to demand ischemia probably from sepsis . Influenza A and B was negative. Urine culture did come back positive for E. coli that was sensitive to Rocephin. COVID testing was subsequently positive. She was initiated on hydroxychloroquine, azithromycin, Rocephin, zinc and vitamin C. Infectious disease was consulted and discontinued her Rocephin and azithromycin. Echocardiogram was done which showed an EF of 55-60%. Her respiratory status worsened and to 05/31/2019. Her oxygen requirements increased from 8 L nasal cannula to 15 L high flow. It was noted that she was DO NOT RESUSCITATE and DO NOT INTUBATE. I had a long conversation with the patient and she was agreeable for intubation. Pulmonology was consulted and she was moved to the ICU for elective intubation. Sedation holiday was attempted on June 01 and June 02. She did have diarrhea for which she was given cholestyramine, C. diff was negative. Patient was extubated on 06/04/2019. She did go into atrial flutter on telemetry on 06/04/2019 for which she was started on therapeutic Lovenox by cardiology. Her Rocephin was started on 06/05/2019 for total of 3 doses to treat UTI. Her respiratory status continued to worsen after extubation patient was reintubated on 06/09/2019. On June 09 patient was noted to be in A. fib with rate of 103-120 bpm for which she was started on Cardizem drip. Patient required pressors to maintain BP and was started on norepinephrine IV. Vancomycin was added to her medication regimen of cefepime and hydroxychloroquine was restarted for worsening leukocytosis and inflammatory markers. Urine, blood and sputum cultures were collected. Sputum culture grew MRSA and Bernadette albicans. Her urine culture grew bernadette albicans and she was started on Fluconazole IV. Her renal function and urine production continued to worsen and nephrology was consulted. Dialysis catheter was placed on 06/11/2019 and dialysis was initiated. Patient underwent sedation holiday on June 14 and , she has been minimally responsive and unable to follow commands up until this time. Her condition continues to remain critical. She was extubated on 06/18/2019 and has been on BiPAP since. There are plans to not reintubate her if she fails BiPAP. Patient was seen and examined. Patient is more responsive today and following simple commands off sedation. Appears to be considerably weak. Currently tolerating BiPAP. Chest x-ray shows no changes in bibasilar reticular interstitial airspace disease. Hemoglobin improved to 9.1 after 1 unit PRBC. Plans for comfort care if patient fails BiPAP. Plans to start TPN for nutritional support. Plans for dialysis today. Objective - Vital Signs Vital signs: Vital Signs Temp 97.6 F 06/20/19 17:00 Pulse 98 06/20/19 17:00 Resp 19 06/20/19 17:00 BP 132/63 06/20/19 17:00 Pulse Ox 98 06/20/19 17:00 Intake & Output 06/19/19 06/20/19 06/20/19 18:59 06:59 18:59 Intake Total 711.000 397 546 Output Total 615 1505 15 Balance 96.000 -1108 531 Weight 79.7 kg 79.7 kg Intake: IV 352 192 501 Cefepime 2 gm In Sodium 100 100 Chloride 0.9% 100 ml @ 200 mls/hr IVPB Q24HR [facility] Rx#:[id number] Dextrose 5% in Water 1, 115 000 ml @ 20 mls/hr IV . Q24H [facility] Rx#:[id number] Fluconazole in NaCl,Iso- 50 50 Osm 100 mg In Saline 1 50ml.bag @ 50 mls/hr IVPB DAILY [facility] Rx#:[id number] Mvi, Adult No.4 with Vit 150 K 10 ml Trace (Conc-1Ml/ Dose) 1 ml Parenteral Electrolytes 20 ml In Amino Acid 5%-D15w 1,000 ml @ 30 mls/hr IV .Q24H [facility] Rx#:[id number] Normal Saline Pressure 72 72 66 Bag Sodium Chloride 0.9% 1, 130 120 20 000 ml @ 20 mls/hr IV . Q24H [facility] Rx#:[id number] Intake, IV Titration 49.000 205 45 Amount Diltiazem 125 mg In 205 45 Sodium Chloride 0.9% 100 ml @ Per Protocol IV .Q0M [facility] Rx#:[id number] Norepinephrine 8 mg In 49.000 Sodium Chloride 0.9% 250 ml @ 0.05 MCG/KG/MIN 7. 153 mls/hr IV .Q24H [facility] Rx#:[id number] Blood Product 310 Rc As-1 Unit 310 [id number] Output: Urine 15 5 15 Stool 600 Hemodialysis 1500 Other: Voiding Method Indwelling Catheter Indwelling Catheter Indwelling Catheter ABP, PAP, CO, CI - Last Documented Arterial Blood Pressure 177/64 - Exam General: [non toxic], [dyspnea on BiPAP], [appears at stated age] Derm: [warm], [dry] Head: [atraumatic], [normocephalic], [symmetric] Eyes: [EOMI], [no lid lag], [anicteric sclera] Mouth: [no lip lesion], [mucus membranes moist] Cardiovascular: [S1S2 ireg], [tachycardia], [positive DP pulse bilateral], Lungs: [Coarse breath sounds bilaterally], [no rhonchi, no rales] , [accessory muscle use] Abdominal: [soft], [ nontender to palpation], [no guarding], [no appreciable organomegaly] Ext: [no gross muscle atrophy], [2 + pitting edema in all 4 extremities], [no contractures], [right groin dialysis catheter] Neuro: [Unable to determine] Psych: [Unable to determine] - Labs CBC & Chem 7: 06/20/19 05:06 06/20/19 05:06 Labs: Abnormal Lab Results - Last 24 Hours (Table) 06/20/19 06/20/19 06/20/19 Range/Units 00:08 05:06 05:06 WBC 20.8 H (3.8-10.6) k/uL RBC 3.33 L (3.80-5.40) m/uL Hgb 9.1 L (11.4-16.0) gm/dL Hct 27.8 L (34.0-46.0) % RDW 22.9 H (11.5-15.5) % Neutrophils # (Manual) 18.50 H (1.3-7.7) k/uL Metamyelocytes # (Man) 0.62 H (0) k/uL Chloride 111 H (98-107) mmol/L Carbon Dioxide 19 L (22-30) mmol/L BUN 38 H (7-17) mg/dL Creatinine 2.54 H (0.52-1.04) mg/dL Glucose 72 L (74-99) mg/dL POC Glucose (mg/dL) 72 L (75-99) mg/dL Phosphorus 6.0 H (2.5-4.5) mg/dL Triglycerides (<150) mg/dL 06/20/19 Range/Units 12:00 WBC (3.8-10.6) k/uL RBC (3.80-5.40) m/uL Hgb (11.4-16.0) gm/dL Hct (34.0-46.0) % RDW (11.5-15.5) % Neutrophils # (Manual) (1.3-7.7) k/uL Metamyelocytes # (Man) (0) k/uL Chloride (98-107) mmol/L Carbon Dioxide (22-30) mmol/L BUN (7-17) mg/dL Creatinine (0.52-1.04) mg/dL Glucose (74-99) mg/dL POC Glucose (mg/dL) (75-99) mg/dL Phosphorus (2.5-4.5) mg/dL Triglycerides 313 H (<150) mg/dL Assessment and Plan Assessment: Acute hypoxic respiratory failure with Septic shock secondary to COVID 19 and MRSA pneumonia Acute kidney injury with metabolic acidosis from septic shock requiring dialysis Anemia AFib with RVR UTI Hypertension Elevated troponin likely demand ischemia Hip tumor Patient was extubated on 06/18/2019. Chest x-ray shows minimal improvement. Leukocytosis of 24.3-11.4-19.2-17.4-15.7-20.8 with neutrophilia and lymphopenia pointing towards bacterial infection. Sputum culture positive MRSA and Bernadette albicans. Urine culture positive Bernadette albicans. Previous urine culture positive for E. coli. Pro-calcitonin, LDH, ferritin and CRP decreasing. Plans: Continue cefepime. Continue fluconazole. Vancomycin discontinued by ID. Infectious disease following. Continue trending inflammatory markers. No plans to reintubated if fails extubation. BUN 59-49-51-38, creatinine 2.16-1.95-2.32-2.28-2.44-2.54. Likely prerenal from septic shock. Plans: Continue calcium acetate. Continue sodium bicarb supplementation. Nephrology following. Dialysis today. Hemoglobin dropped from 6.8-9.0 post 1 PRBC today, repeat hemoglobin 9.1. No obvious source of bleed. Plans: DC Lovenox and start subcut Heparin. Follow repeat CBC. Plans: Lovenox discontinued due to drop in hemoglobin, continue subcutaneous heparin. Continue Cardizem drip. Maintain potassium greater than 4 and magnesium greater than 2. Follow cardiology recommendations. Telemetry monitoring. Plans: Completed treatment for UTI. BP 132/63. Plans: Lisinopril discontinued for acute kidney injury. Metoprolol discontinued for hypotension. Currently on pressors. Monitor vitals, adjust medications as necessary. Her troponins are flat. Troponin 0.48, 0.195, 0.190. Likely demand ischemia from sepsis. Echocardiogram with no wall motion abnormalities. Plans: Cardiolo gy evaluated, nothing further to do. Plans: Adequate pain management. [Patient extubated to BiPAP. Plans on no reintubation if fails BiPAP, family agreeable and aware. Getting dialysis today. Pulmonology, infectious disease, nephrology, cardiology following. Her prognosis is poor. Case discussed with Dr. Neal.]
[2019-06-20 18:14] LABS: Glucose,Whole Blood 152 mg/dL (75-99)
--- NOTE | 2019-06-20 23:15 | PN ---
PROGRESS NOTE DATE OF SERVICE: 06/20/2019 REASON FOR FOLLOWUP: Pneumonia. INTERVAL HISTORY: The patient is currently afebrile. Patient is hemodynamically stable. Not on pressor support. No dialysis today. Urine output remains to be low. Diarrhea resolved. Fecal management system was discontinued. She remains to be on BiPAP. Was unable to provide any history. PHYSICAL EXAMINATION: Blood pressure 132/63 with a pulse of 98, temperature 97.6. She is 98% on 40% FiO2. General description is an elderly female lying in bed in no distress. RESPIRATORY SYSTEM: Unlabored breathing coarse breath sounds bilaterally. HEART: S1, S2. Regular rate and rhythm. ABDOMEN: Soft, no tenderness. LABS: Hemoglobin 9.1, white count 20,000, BUN of 38, creatinine is 2.54. Vancomycin random was 21.2. DIAGNOSTIC IMPRESSION AND PLAN: 1. Patient with acute respiratory failure which is multifactorial in this patient who did have a component of pneumonia. She did have an methicillin-resistant Staphylococcus aureus on vancomycin. Zyvox could not be used because the patient was on Paxil. 2. Yeast urinary tract infection, currently covered with Diflucan. She did have worsening of the white count could be related to the steroid the patient is on, hence will monitor patient closely and adjust antibiotic further if needed. Continue with supportive care negative. MMODL / IJN: [id number] /
[2019-06-20 23:58] LABS: Glucose,Whole Blood 146 mg/dL (75-99)
[2019-06-21] MEDS: HEPARIN SODIUM,PORCINE 5,000 UNIT/ML 1 ML VIAL SQ SCH ×3 (00:09→15:54)
[2019-06-21] MEDS: INSULIN ASPART (NovoLOG) 100 UNIT/ML VIAL SQ SCH ×4 (00:09→17:49)
[2019-06-21 04:53] LABS: Anisocytosis Moderate; Basophils % (A) 0 %; Eosinophils # (A) 0.1 k/uL (0-0.7); Eosinophils % (A) 1 %; HGB 9.2 gm/dL (11.4-16.0); Hypochromasia Marked; Lymphocytes % (A) 4 %; MCH 28.2 pg (25.0-35.0); MCHC 32.7 g/dL (31.0-37.0); MCV 86.1 fL (80.0-100.0); Mean Platelet Volume 10.7; Microcytosis Slight; Monocytes # (A) 0.4 k/uL (0-1.0); Monocytes % (A) 2 %; Neutrophils # (A) 23.8 k/uL (1.3-7.7); Neutrophils % (A) 94 %; Platelet Count 192 k/uL (150-450); Poikilocytosis Moderate; RBC 3.26 m/uL (3.80-5.40); RDW 23.1 % (11.5-15.5); WBC 25.4 k/uL (3.8-10.6)
[2019-06-21 04:57] LABS: Ionized Calcium 5.2 mg/dL (4.5-5.3)
[2019-06-21] MEDS: DILTIAZEM 125 MG in SODIUM CHLORIDE 0.9% 100 ML IV SCH (05:03)
[2019-06-21 05:11] LABS: Albumin 2.5 g/dL (3.5-5.0); Calcium 8.8 mg/dL (8.4-10.2); Magnesium 2.4 mg/dL (1.6-2.3); Phosphorus 7.3 mg/dL (2.5-4.5); Potassium 4.1 mmol/L (3.5-5.1)
[2019-06-21 05:16] LABS: Vancomycin,Random 19.5 ug/mL
[2019-06-21 05:53] LABS: Glucose,Whole Blood 158 mg/dL (75-99)
[2019-06-21] MEDS: CALCIUM ACETATE 667 MG TAB PO SCH ×3 (06:41→15:51)
--- NOTE | 2019-06-21 07:41 | XR ---
EXAMINATION TYPE: XR chest 1V portable DATE OF EXAM: 06/21/2019 COMPARISON: 06/20/2019 HISTORY: Pneumonia. Follow-up exam. TECHNIQUE: Single frontal view of the chest is obtained. FINDINGS: Left subclavian approach central venous catheter is similar in position within upper limit s of normal sized cardiomediastinal silhouette. Trace left pleural effusion blunts the costophrenic a ngle. Multifocal opacities most confluent in the left peripheral midlung and right lung base along th e hemidiaphragm as well as retrocardiac airspace are unchanged in degree from 06/20/2019. Diffuse inte rstitial prominence background. Sclerosis of the right acromion or glenoid physician, patient is rota tiffani to the left. IMPRESSION: Diffuse mild interstitial prominence and multifocal reticular bilateral opacities are si milar to the prior and likely on the basis of multifocal pneumonia as provided in the history. Backgr ound overall appears mild with pulmonary vascular congestion and trace left pleural effusion.
[2019-06-21] MEDS: ASPIRIN 81 MG PO SCH (08:15)
[2019-06-21] MEDS: ASCORBIC ACID 500 MG TAB PO SCH ×2 (08:15→22:04)
[2019-06-21] MEDS: PARoxetine 10 MG TAB PO SCH (08:16)
[2019-06-21] MEDS: ZINC SULFATE 220 MG CAP PO SCH (08:16)
[2019-06-21] MEDS: methylPREDNISolone SOD SUCCI 40 MG/ML 1 ML VIAL IV SCH (08:37)
[2019-06-21] MEDS: CEFEPIME 2 GM in SODIUM CHLORIDE 0.9% 100 ML IVPB SCH (08:37)
[2019-06-21] MEDS: PANTOPRAZOLE 40 MG/10 ML VIAL IVP SCH (08:37)
[2019-06-21] MEDS: FLUCONAZOLE IN NACL,ISO-OSM 100 MG in SALINE 1 50ML.BAG IVPB SCH (08:38)
[2019-06-21] MEDS ORDERED: FAT EMULSION 20% 250 ML in EMPTY BAG 1 BAG IV SCH (09:00)
[2019-06-21] MEDS ORDERED: MIDODRINE 5 MG TAB PO PRN (09:02)
--- NOTE | 2019-06-21 09:04 | P.PN ---
Subjective Patient is seen in follow-up for acute kidney injury. She is currently hemodialysis dependent. She is maintained on Cardizem drip for A. fib. She is receiving TPN. Remains oliguric. Vital signs are stable. General: The patient appeared well nourished and normally developed. HEENT: Head exam is unremarkable. Neck is without jugular venous distension. LUNGS: Breath sounds decreased. HEART: Irregular rate and rhythm. EXTREMITITES: 1+ edema. Objective - Vital Signs Vital signs: Vital Signs Temp 97.0 F L 06/21/19 04:00 Pulse 97 06/21/19 07:00 Resp 22 06/21/19 07:00 BP 116/54 06/21/19 07:00 Pulse Ox 97 06/21/19 07:00 Intake & Output 06/20/19 06/21/19 06/21/19 18:59 06:59 18:59 Intake Total 592 677 46 Output Total 15 5 0 Balance 577 672 46 Weight 79.7 kg 79 kg Intake: IV 547 552 46 Cefepime 2 gm In Sodium 100 Chloride 0.9% 100 ml @ 200 mls/hr IVPB Q24HR [facility] Rx#:[id number] Dextrose 5% in Water 1, 125 120 10 000 ml @ 20 mls/hr IV . Q24H [facility] Rx#:[id number] Fluconazole in NaCl,Iso- 50 Osm 100 mg In Saline 1 50ml.bag @ 50 mls/hr IVPB DAILY [facility] Rx#:[id number] Mvi, Adult No.4 with Vit 180 360 30 K 10 ml Trace (Conc-1Ml/ Dose) 1 ml Parenteral Electrolytes 20 ml In Amino Acid 5%-D15w 1,000 ml @ 30 mls/hr IV .Q24H [facility] Rx#:[id number] Normal Saline Pressure 72 72 6 Bag Sodium Chloride 0.9% 1, 20 000 ml @ 20 mls/hr IV . Q24H [facility] Rx#:[id number] Intake, IV Titration 45 125 Amount Diltiazem 125 mg In 45 125 Sodium Chloride 0.9% 100 ml @ Per Protocol IV .Q0M [facility] Rx#:[id number] Output: Urine 15 5 0 Other: Voiding Method Indwelling Catheter Indwelling Catheter ABP, PAP, CO, CI - Last Documented Arterial Blood Pressure 181/59 - Labs CBC & Chem 7: 06/21/19 04:38 06/21/19 04:38 Labs: Abnormal Lab Results - Last 24 Hours (Table) 06/20/19 06/20/19 06/20/19 Range/Units 12:00 18:12 23:56 WBC (3.8-10.6) k/uL RBC (3.80-5.40) m/uL Hgb (11.4-16.0) gm/dL Hct (34.0-46.0) % RDW (11.5-15.5) % Neutrophils # (1.3-7.7) k/uL Chloride (98-107) mmol/L Carbon Dioxide (22-30) mmol/L BUN (7-17) mg/dL Creatinine (0.52-1.04) mg/dL Glucose (74-99) mg/dL POC Glucose (mg/dL) 152 H 146 H (75-99) mg/dL Phosphorus (2.5-4.5) mg/dL Magnesium (1.6-2.3) mg/dL Albumin (3.5-5.0) g/dL Triglycerides 313 H (<150) mg/dL 06/21/19 06/21/19 06/21/19 Range/Units 04:38 04:38 05:51 WBC 25.4 H (3.8-10.6) k/uL RBC 3.26 L (3.80-5.40) m/uL Hgb 9.2 L (11.4-16.0) gm/dL Hct 28.0 L (34.0-46.0) % RDW 23.1 H (11.5-15.5) % Neutrophils # 23.8 H (1.3-7.7) k/uL Chloride 109 H (98-107) mmol/L Carbon Dioxide 19 L (22-30) mmol/L BUN 53 H (7-17) mg/dL Creatinine 3.12 H (0.52-1.04) mg/dL Glucose 144 H (74-99) mg/dL POC Glucose (mg/dL) 158 H (75-99) mg/dL Phosphorus 7.3 H (2.5-4.5) mg/dL Magnesium 2.4 H (1.6-2.3) mg/dL Albumin 2.5 L (3.5-5.0) g/dL Triglycerides (<150) mg/dL Assessment and Plan Plan: assessment: 1. Acute kidney injury secondary to ATN secondary to septic shock. Hemod ialysis dependent. 2. Metabolic acidosis secondary to acute kidney injury. 3. Mild hyperkalemia secondary to acute kidney injury and metabolic acidosis. Improved postdialysis. 4. Acute hypoxic and hypercapnic respiratory failure. Now extubated. On 40% FiO2. 5. Septic shock secondary to COVID-19 and MRSA pneumonia. Urine culture positive for E. coli and mariah. Maintained on antibiotics/anti-fungal. 6. Hyperphosphatemia secondary to acute kidney injury maintained on PhosLo. 7. A. fib with RVR maintained on Cardizem drip. 8. Volume overload. Improving with daily ultrafiltration. Plan: Hemodialysis today with goal 2-3 L ultrafiltration. Maintain TPN. Monitor vancomycin levels. Dose to be adjusted for renal function. I will add midodrine 10 mg to be given during dialysis if needed.
[2019-06-21 09:34] LABS: ABG Base Excess -6.5 mmol/L; ABG HCO3 19 mmol/L (21-25); ABG Oxygen Saturation 96.9 % (94-97); ABG PCO2 37 mmHg (35-45); ABG PH 7.33 (7.35-7.45); ABG PO2 92 mmHg (83-108); ABG TCO2 21 mmol/L (19-24)
[2019-06-21] MEDS ORDERED: SODIUM BICARB 8.4% 50 ML SYR (1 MEQ/ML) IV STA (09:35)
[2019-06-21 09:37] LABS: Allen Test Performed? no
[2019-06-21] MEDS ORDERED: MVI, ADULT NO.4 WITH VIT K 10 ML, TRACE (CONC-1ML/DOSE) 1 ML, PARENTERAL ELECTROLYTES 2... IV SCH ×4 (11:00)
[2019-06-21 11:18] LABS: Glucose,Whole Blood 160 mg/dL (75-99)
[2019-06-21] MEDS: NOREPINEPHRINE 8 MG in SODIUM CHLORIDE 0.9% 250 ML IV SCH (11:20)
--- NOTE | 2019-06-21 11:50 | P.PN ---
Subjective Progress Note Date: 06/21/19 Principal diagnosis: Acute hypoxic respiratory failure secondary to covid 19 pneumonitis This is a 78-year-old female patient with respiratory failure secondary to Coumadin 19 related pneumonia. A short initially admitted on 05/26/2019 for a UTI and Covid pneumonia. Her initial urine cultures came back positive for E. coli. At the later stage, she was found to have a Covid 19 pneumonia with pulmonary complications. The patient remains in the intensive care unit intubated on a mechanical ventilator. Note that the patient was intubated on 05/31/2019. She was extubated on 06/04/2019. However on 06/09/2019 the patient worsening hypoxemia and she had to be reintubated and placed on mechanical ventilator. She also developed a septic shock related to an MRSA pneumonia. His sputum culture from 06/08/2019 was positive for MRSA. She has other ongoing issues for now including acute kidney injury and the patient remains anuric receiving hemodialysis. The patient also developed an acute non-STEMI with a troponin maxed at 0.4 started on a combination of aspirin and heparin treating an acute non-ST segment elevation myocardial infarction. The patient remains sedated and paralyzed. She is on propofol and Pneumovax. She remains on a mechanical ventilator with assist control mode with a rate of 30, tidal volume 350 and FiO2 40% with a PEEP of 15. She remains on broad-spectrum antibiotics and current antibiotic coverage includes IV cefepime and vancomycin. Diflucan was also added at the sputum was positive for Bernadette multiple occasions. She is also receiving hydroxychloroquine regarding the Covid 19 pneumonia. She is on IV Solu-Medrol 40 mg every 12 hours. She is still hypotensive requiring norepinephrine infusion for blood pressure support and he was being titrated according to the patient's BP response. Note that the patient was started on dialysis for acute kidney injury on 06/11/2019. She has a temporary dialysis catheter inserted. She 2 sessions of hemodialysis since yesterday. She is not producing any urine for now. Note that along with a septic shock, the patient developed severe leukocytosis. White cell count was high as 90.6. It has gradually improved over the past few days. On today's evaluation of 06/14/2019, the patient remains on propofol at 75 g and the patient was taken off the Nimbex. The patient remains on essentially the same ventilator settings which include a tidal volume of 350 with a PEEP of 10 and FiO2 of 40% with a tidal volume of 350 and the respiratory rate of 30. The morning blood gases showed a pH of 7.19 with a pCO2 of 46 and pO2 of 83. The patient seems to have compliant lungs and the patient was requesting higher volumes. For that reason, I increased the tidal volume of 03/30/1947. I do not to be down to 8. I started the patient was also riding the mechanical ventilator at the rate of 30 and I dropped a respiratory rate down to 22. Her chest x-ray was showing some improvement in the pneumonia. There is still feasible breast in the lung bases consistent with infiltration. The patient is still receiving enteral feeding for nutritional support. The patient as mentioned has Covid 19 infection and a bacterial pneumonia in the form of MRSA. We are somewhat inclined not to give Actemra. The interleukin level from few days ago was 56. The patient has developed an acute kidney injury. The patient is producing minimal amount of urine output and she is going to undergo dialysis today. The net fluid balance is +1.8 and 2.7 L over the past 24 hours. . On today's evaluation of 06/15/2019, the patient is being seen in follow-up in the intensive care unit. This morning, the patient remains of Nimbex. The patient is sedated with propofol running at 65 g per KG per minute. The patient is also on Cardizem at 7.5 mg an hour. The patient remains on assist control mode of ventilation. She is at the rate of 22 with a tidal volume of 500 and FiO2 of 40% with a PEEP of 5. The peak pressures 22. The static airway pressure is 11. The patient's blood gas showed a pH of 7.43 with a pCO2 of 28 and pO2 of 76. The patient a follow-up chest x-ray that showed diffuse patchy breath and pulmonary infiltrates, essentially stable compared to yesterday. Endotracheal tube was seen around 1.5 cm above the aung. The plan is to undergo another session of hemodialysis today. The patient has diffuse edema and third spacing all 4 extremities specially in the legs and the patient has been in a significant amount of fluid balance positivity. The patient underwent hemodialysis yesterday. The white cell count is at 11.4. Hemoglobin is at 7.4. The patient's sodium level is at 129. BUN is 56 with a creatinine of 1.9. The LDH level has declined down to 564. The CRP level is down to 15.2. The white cell count is also improved down to 11.4 and the patient's pro-calcitonin level is also improving. As such, the septic bacterial pneumonia has been improving with improvement in hemodynamics and improvement in the pro-calcitonin level and white count. On 06/16/2019, the patient is being seen in follow-up in the intensive care unit. This morning, the patient is been taken off sedation and the patient is being given a sedation holiday. At the time of my evaluation, she was still very much some limited and sleepy and sedated and the patient was not following any commands nor she wasn't withdrawing to any painful stimulation. I requested to keep the patient off propofol for now. She remains on Cardizem at 7.5 mg an hour to control her atrial fibrillation. She remains on a mechanical ventilator with essentially the same ventilator settings which included control of 22, tidal volume of 350, FiO2 of 40% and a PEEP of 5. Peak and static airway pressures are not elevated PA chest x-ray shows stable about pulmonary infiltrates dated to Covid 19 related pneumonia in addition to a superimposed bacterial pneumonia which improved clinically. Mother the patient is afebrile. The patient's white cell count is improved. The patient's pro-calcitonin level is declining is down to 12.2. Also, the patient's blood. Showed a pH of 7.48 with a pCO2 of 29 and pO2 of 81 is with an FiO2 of 40%. The patient is still on examination antibiotics patient is receiving cefepime and vancomycin and Diflucan. She remains on vitamin AF which is running at 26 an hour for enteral feeding and nutritional support. She is undergoing daily dialysis. Her fluid balance is been negative as the patient has been essentially undergoing daily dialysis with ultrafiltration. The plan is to proceed another session of dialysis today. Her current weight is 86 kg which is 1 kg less compared to yesterday. Had extremity edema is also improving. She is afebrile for now. On 06/17/2019 and seeing the patient in follow-up. The patient was taken off sedation since yesterday and the patient of sedation this morning also. As such the patient has been off sedation for around 24 hours. She is able to respond to some simple commands and she is able to nod her head and regular still wasn't fingers to request. Nevertheless, she is unable to raise her arms or legs or raise head of the bed. We have decided to keep it off sedation for now. She is undergoing hemodialysis this morning. She remains on a mechanical ventilator. She is an assist-control mode at the rate of 22 with a tidal volume of 500 and FiO2 of 40% with a PEEP of 5. The left ear showed a pH of 7.48 with a pCO2 of 30 and pO2 of 11. She is on a Cardizem drip at 7.5 mg an hour. She is levo fed for now. She remains on cefepime and Diflucan and vancomycin. As stated earlier the patient was treated for a MRSA pneumonia that complicated Covid 19 related pneumonia. The most recent random vancomycin level from yesterday was 27.4. The patient otherwise is doing well. The morning hemoglobin was at 6.3 and the patient received a unit of packed RBC. Morning blood gases in the above-mentioned vent setting showed a pH of 7.48 with a pCO2 of 30 and pO2 of 11. The chest x-ray from this morning showed a stable bilateral pulmonary infiltrates although slightly improved compared to yesterday's chest x-ray and the tubes and lines were all in place. The patient is afebrile. The goal is to do some further ultrafiltration as the patient is still significant signs of fluid overload. Furthermore, will communicate with the family and according to them the patient did not want any long-term ventilator support such as tracheostomy and if she fails extubation the plan is not to reintubate based on the patient's and the family's wishes. On 06/18/2019 on seeing the patient for a follow-up. The patient has been off sedation for the past 48 hours. She is moving her arms and she is directing t owards to tube asking him to be removed. She is extremely weak. Her weaning parameters remain borderline. I'm not SURE THAT SHE IS GOING TO TOLERATE EXTUBATION.. Based on all this, I contacted the family and I told him that we are considering extubating this patient or BiPAP with the possibility of her not tolerating this wean and going into respiratory failure again. Based on my conversation with the daughter, she was very much agreeable to the affected the patient did not want long-term support being and ventilation or any form of ventilators or dialysis and he was very reasonable for her not to reintubate should the patient failed extubation to BiPAP. For now, the plan is to extubate the patient failed BiPAP. Her current ventilator settings are as follows. She is on assist control mode at the rate of 22 FiO2 of 500 mg of 40% with a PEEP of 5. Her blood gases showed a pH of 7.49 with a pCO2 of 29 and pO2 of 11. She is on IV fluids with normal saline at the rate of 10 mL an hour. She remains on Cardizem drip for rate control regarding her atrial fibrillation at 7.5 mg an hour. She is on no other pressors for now. She's been off sedation for more than 48 hours. She started tolerating her enteral feeding for nutritional support with vital high protein. I gave her a brief spontaneous breathing trial with a pressure support of 10 and a PEEP of 5 and she did well and she was able to generate tidal volumes of more than 400. Based on that, I made the plan to extubate this patient to a BiPAP at a pressure 15/5 cm of water with an FiO2 of 50% and proceed accordingly. She remains on cefepime. She remains on vancomycin. She remains on Diflucan. The chest x-ray shows diffuse interstitial and patchy airspace disease most on the lung bases. The patient is afebrile. The white cell count is down to 17.4. The patient has hemoglobin of 7.6. The patient is undergoing daily dialysis. The last dialysis session was yesterday and a creatinine from this morning is down to 2.4. Other Arthritis are all well maintained with a potassium level of 3.3 which needs to be replaced. Vancomycin level from today's at 20.7. On 06/19/2019, the patient remains in intensive care unit. She's been off sedation for the past 72 hours and the patient has been extubated and currently is on a BiPAP pressure of 15/5 cm of water and FiO2 of 40%. The plan is to proceed with another session of dialysis this afternoon. The patient is profoundly weak. She is able to respond to questions and she seems to be appropriate. She is wiggling her toes and fingers. Nevertheless she is unable to raise it up against gravity. She is able to move her head and say yes or no. She has no significant cough or sputum production. She is generating tidal volumes of about 400 while being on mechanical noninvasive partial pressure ventilation. Her respiratory rate remains less than 30. Overnight, she required medication for pain and she was given morphine. She is nothing by [facility] for now. Unable to come off the BiPAP as the patient was taken off the BiPAP for a few minutes yesterday to a nasal cannula and she failed and she had to be placed back on the BiPAP. She remains on cefepime. She remains on vancomycin. She remains on Diflucan. She is on no pressors. She is on Cardizem drip for rate control regarding her chronic atrial fibrillation. She has significant amount of swelling in all 4 extremities pH is going to undergo another session of dialysis today. She is afebrile. Urine output is diminished and the patient is receiving daily hemodialysis. The morning hemoglobin was at 6.8. She showed no signs of any acute GI bleed. She'll be given units of pac ked RBC today. I contacted the daughter and I informed her of these changes. We'll keep the patient on the BiPAP for another 24 hours and monitor progress. On 06/20/2019, the patient remains on a BiPAP at a pressure 15/5 cm of water and FiO2 of 40%. She is awake. She is communicating. She remains profoundly weak. I'm not seeing much improvement in her motor functions and his physical power. She is able to communicate. She is sluggish. She is however able to tolerate the BiPAP without any major difficulties and she is on a full face mask for now. Note that she has been able to eat based on the fact that she's been BiPAP dependent. I'm considering to start her on low-dose TPN for nutritional support. The patient underwent hemodialysis yesterday. No plans for hemodialysis today. She is still able to generate a tidal volume of 400 and her respiratory rate is in the low 20s. She remains on the same antibiotic coverage which includes vancomycin and Diflucan. She is also on cefepime. She is afebrile. Chest x-ray findings are stable, probably there is some improved infiltration of the lung base on the right. For the most part, there is no significant interval change in the appearance of the chest x-ray. The white cell count is up to 20. Hemoglobin stable at 9.1. She is producing minimal amount of urine output in order of 5-10 mL per shift. Creatinine is at 2.5 with a BUN of 38. The serum bicarbs at 19. She remains in atrial fibrillation. She is on a Cardizem drip at the rate of 7.5 mg an hour for rate control. She received 2 units of packed RBC yesterday and she is not showing any signs of bleeding. Reevaluated today on 06/21/19, patient remains on BiPAP, with IPAP of 15, EPAP of 5 and FiO2 is 40%. Patient remains in the ICU, and her overall pulmonary status is marginal at best. ABG on BiPAP today showed a pO2 of 92 pCO2 of 37 pH of 7.33 reflecting a component of metabolic acidosis secondary to her underlying renal failure. Patient may be dialyzed today. In the meantime I have recommended trying the patient on high flow oxygen utilizing airvo, hopefully can transition the patient from BiPAP to a high flow cannula. Patient remains on antibiotics in the form of cefepime and vancomycin. Remains on IV fluid at D5W 20 mL per hour, remains on TPN, and she was intubated initially on 05/30 extubated on 06/03 reintubated on 06/08 and extubated on 06/17. Overall clinical status remains marginal. Chest x-ray continues to show diffuse bilateral i nfiltrates. Basic metabolic profile is normal except for low bicarb of 19. Her BUN is 53 creatinine 3.12. Objective - Vital Signs Vital signs: Vital Signs Temp 96.8 F L 06/21/19 08:00 Pulse 96 06/21/19 09:00 Resp 18 06/21/19 09:00 BP 122/68 06/21/19 09:00 Pulse Ox 97 06/21/19 09:00 Intake & Output 06/20/19 06/21/19 06/21/19 18:59 06:59 18:59 Intake Total 592 677 373 Output Total 15 5 0 Balance 577 672 373 Weight 79.7 kg 79 kg Intake: IV 547 552 373 Cefepime 2 gm In Sodium 100 100 Chloride 0.9% 100 ml @ 200 mls/hr IVPB Q24HR [facility] Rx#:[id number] Dextrose 5% in Water 1, 125 120 70 000 ml @ 20 mls/hr IV . Q24H [facility] Rx#:[id number] Fluconazole in NaCl,Iso- 50 50 Osm 100 mg In Saline 1 50ml.bag @ 50 mls/hr IVPB DAILY [facility] Rx#:[id number] Mvi, Adult No.4 with Vit 180 360 120 K 10 ml Trace (Conc-1Ml/ Dose) 1 ml Parenteral Electrolytes 20 ml In Amino Acid 5%-D15w 1,000 ml @ 30 mls/hr IV .Q24H [facility] Rx#:[id number] Normal Saline Pressure 72 72 33 Bag Sodium Chloride 0.9% 1, 20 000 ml @ 20 mls/hr IV . Q24H [facility] Rx#:[id number] Intake, IV Titration 45 125 Amount Diltiazem 125 mg In 45 125 Sodium Chloride 0.9% 100 ml @ Per Protocol IV .Q0M [facility] Rx#:[id number] Output: Urine 15 5 0 Other: Voiding Method Indwelling Catheter Indwelling Catheter ABP, PAP, CO, CI - Last Documented Arterial Blood Pressure 181/59 - Exam GENERAL EXAM: Alert, 78-year-old white female, on BiPAP, arousable, seems to be frail and generally weak. Unable to move arms against gravity. Head: Atraumatic, normocephalic. HEENT: PERRLA, EOMI, no icterus. Moist mucous membranes. CHEST: No chest wall deformity. Symmetrical expansion. LUNGS: Diffuse crackles bilaterally especially at the bases. CVS: Regular rate and rhythm, normal S1 and S2, no gallops, no murmurs, no rubs ABDOMEN: Soft, nontender. No hepatosplenomegaly, normal bowel sounds, no guarding or rigidity. EXTREMITIES: No clubbing, no edema, no cyanosis, 2+ pulses and upper and lower extremities. Dialysis catheter is noted in the right groin pain MUSCULOSKELETAL: Muscle strength is showing extreme weakness, unable to move against gravity. SPINE: No scoliosis or deformity SKIN: Superficial areas of ecchymosis noted on the chest. CENTRAL NERVOUS SYSTEM: Opens eyes, follows simple instructions. Again feels generally weak. PSYCHIATRIC: Cannot be assessed. - Labs CBC & Chem 7: 06/21/19 04:38 06/21/19 04:38 Labs: Abnormal Lab Results - Last 24 Hours (Table) 06/20/19 06/20/19 06/20/19 Range/Units 12:00 18:12 23:56 WBC (3.8-10.6) k/uL RBC (3.80-5.40) m/uL Hgb (11.4-16.0) gm/dL Hct (34.0-46.0) % RDW (11.5-15.5) % Neutrophils # (1.3-7.7) k/uL ABG pH (7.35-7.45) ABG HCO3 (21-25) mmol/L Chloride (98-107) mmol/L Carbon Dioxide (22-30) mmol/L BUN (7-17) mg/dL Creatinine (0.52-1.04) mg/dL Glucose (74-99) mg/dL POC Glucose (mg/dL) 152 H 146 H (75-99) mg/dL Phosphorus (2.5-4.5) mg/dL Magnesium (1.6-2.3) mg/dL Albumin (3.5-5.0) g/dL Triglycerides 313 H (<150) mg/dL 06/21/19 06/21/19 06/21/19 Range/Units 04:38 04:38 05:51 WBC 25.4 H (3.8-10.6) k/uL RBC 3.26 L (3.80-5.40) m/uL Hgb 9.2 L (11.4-16.0) gm/dL Hct 28.0 L (34.0-46.0) % RDW 23.1 H (11.5-15.5) % Neutrophils # 23.8 H (1.3-7.7) k/uL ABG pH (7.35-7.45) ABG HCO3 (21-25) mmol/L Chloride 109 H (98-107) mmol/L Carbon Dioxide 19 L (22-30) mmol/L BUN 53 H (7-17) mg/dL Creatinine 3.12 H (0.52-1.04) mg/dL Glucose 144 H (74-99) mg/dL POC Glucose (mg/dL) 158 H (75-99) mg/dL Phosphorus 7.3 H (2.5-4.5) mg/dL Magnesium 2.4 H (1.6-2.3) mg/dL Albumin 2.5 L (3.5-5.0) g/dL Triglycerides (<150) mg/dL 06/21/19 06/21/19 Range/Units 09:32 11:16 WBC (3.8-10.6) k/uL RBC (3.80-5.40) m/uL Hgb (11.4-16.0) gm/dL Hct (34.0-46.0) % RDW (11.5-15.5) % Neutrophils # (1.3-7.7) k/uL ABG pH 7.33 L (7.35-7.45) ABG HCO3 19 L (21-25) mmol/L Chloride (98-107) mmol/L Carbon Dioxide (22-30) mmol/L BUN (7-17) mg/dL Creatinine (0.52-1.04) mg/dL Glucose (74-99) mg/dL POC Glucose (mg/dL) 160 H (75-99) mg/dL Phosphorus (2.5-4.5) mg/dL Magnesium (1.6-2.3) mg/dL Albumin (3.5-5.0) g/dL Triglycerides (<150) mg/dL Assessment and Plan Assessment: Impression: Acute hypoxic and hypercapnic respiratory failure secondary to acute covered 19 pneumonia. Patient was admitted on 05/25 intubated on 05/30 extubated on 06/03 reintubated on 06/08 extubated on 06/17 and presently remains on BiPAP. Septic shock secondary to MRSA pneumonia, presently on vancomycin and cefepime. Acute kidney injury, patient is on hemodialysis hopefully this will be a temporary hemodialysis. She was dialyzed 2 days ago. Being followed by nephrology. Atrial fibrillation with RVR secondary to sepsis requiring Cardizem drip. Acute non-ST elevation myocardial infarction is suspected. Benign essential hypertension Acute urinary tract infection secondary to E. coli treated already. 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 History of chronic tobacco dependence. Chronic anemia Critical illness polyneuropathy and myopathy nP0, however the patient is on TPN. Recommendation: Continue TPN. Continue BiPAP and will try the patient on high flow O2 via airvo Otherwise patient will be kept on BiPAP. Continue antibiotics coverage including Diflucan and vancomycin and cefepime Agree with CODE STATUS/DO NOT RESUSCITATE. Decision regarding dialysis will be made today by nephrology. Neurology to see her regarding her critical illness polyneuropathy Continue otherwise supportive care measures. Prognosis remains extremely poor and guarded. We'll continue to follow. Critical care time is 32 minutes. Time with Patient: Greater than 30
[2019-06-21] MEDS ORDERED: ANIDULAFUNGIN 200 MG in SODIUM CHLORIDE 0.9% 200 ML IVPB ONE (17:30)
[2019-06-21] MEDS ORDERED: LORazepam 2 MG/ML INJ IV PRN (17:44)
[2019-06-21] MEDS ORDERED: MORPHINE SULFATE 4 MG/ML SYRINGE IV PRN (17:44)
[2019-06-21] MEDS ORDERED: MORPHINE SULFATE (100 MG/2 ML) 100 MG in SODIUM CHLORIDE 0.9% 100 ML IV SCH (17:45)
[2019-06-21 17:50] VITALS: TEMP 97.5
--- NOTE | 2019-06-21 17:58 | P.PN ---
Subjective Progress Note Date: 06/21/19 Principal diagnosis: COVID pneumonia 78-year-old female with PMH of hypertension presented to the ED for epigastric discomfort and intractable nausea and vomiting. In the ED, she was noted to have an elevated troponin of 0.418 with T-wave inversions on EKG. She was started on aspirin and heparin drip and was admitted for non-ST elevation ME. On 05/27/2019 she was noted to have spiked a fever thought to be possibly related to UTI or COVID 19 infection. Troponins were trended which went from 0.195-0.190. Her troponins were related to demand ischemia probably from sepsis . Influenza A and B was negative. Urine culture did come back positive for E. coli that was sensitive to Rocephin. COVID testing was subsequently positive. She was initiated on hydroxychloroquine, azithromycin, Rocephin, zinc and vitamin C. Infectious disease was consulted and discontinued her Rocephin and azithromycin. Echocardiogram was done which showed an EF of 55-60%. Her respiratory status worsened and to 05/31/2019. Her oxygen requirements increased from 8 L nasal cannula to 15 L high flow. It was noted that she was DO NOT RESUSCITATE and DO NOT INTUBATE. I had a long conversation with the patient and she was agreeable for intubation. Pulmonology was consulted and she was moved to the ICU for elective intubation. Sedation holiday was attempted on June 01 and June 02. She did have diarrhea for which she was given cholestyramine, C. diff was negative. Patient was extubated on 06/04/2019. She did go into atrial flutter on telemetry on 06/04/2019 for which she was started on therapeutic Lovenox by cardiology. Her Rocephin was started on 06/05/2019 for total of 3 doses to treat UTI. Her respiratory status continued to worsen after extubation patient was reintubated on 06/09/2019. On June 09 patient was noted to be in A. fib with rate of 103-120 bpm for which she was started on Cardizem drip. Patient required pressors to maintain BP and was started on norepinephrine IV. Vancomycin was added to her medication regimen of cefepime and hydroxychloroquine was restarted for worsening leukocytosis and inflammatory markers. Urine, blood and sputum cultures were collected. Sputum culture grew MRSA and Bernadette albicans. Her urine culture grew bernadette albicans and she was started on Fluconazole IV. Her renal function and urine production continued to worsen and nephrology was consulted. Dialysis catheter was placed on 06/11/2019 and dialysis was initiated. Patient underwent sedation holiday on June 14 and , she has been minimally responsive and unable to follow commands up until this time. Her condition continues to remain critical. She was extubated on 06/18/2019 and has been on BiPAP since. There are plans to not reintubate her if she fails BiPAP. On 06/21/2019 she was transitioned to Airvo. She did get 2 units of PRBC on 06/16 and 06/18 and her hemoglobin has remained stable since. Patient was seen and examined. Patient is more responsive today and following simple commands off sedation. Appears to be considerably weak. Currently tolerating Airvo, transitioned off BiPAP today. Chest x-ray shows no changes in bibasilar reticular interstitial airspace disease. Hemoglobin improved to 9.2. Plans for comfort care if patient fails BiPAP. TPN started for nutritional support. Plans for dialysis today. Objective - Vital Signs Vital signs: Vital Signs Temp 98.2 F 06/21/19 16:00 Pulse 97 06/21/19 17:00 Resp 25 H 06/21/19 17:00 BP 124/66 06/21/19 17:00 Pulse Ox 90 L 06/21/19 17:00 Intake & Output 06/20/19 06/21/19 06/21/19 18:59 06:59 18:59 Intake Total 592 677 547 Output Total 15 5 0 Balance 577 672 547 Weight 79.7 kg 79 kg Intake: IV 547 552 547 Cefepime 2 gm In Sodium 100 100 Chloride 0.9% 100 ml @ 200 mls/hr IVPB Q24HR [facility] Rx#:[id number] Dextrose 5% in Water 1, 125 120 130 000 ml @ 20 mls/hr IV . Q24H [facility] Rx#:[id number] Fluconazole in NaCl,Iso- 50 50 Osm 100 mg In Saline 1 50ml.bag @ 50 mls/hr IVPB DAILY [facility] Rx#:[id number] Mvi, Adult No.4 with Vit 180 360 216 K 10 ml Trace (Conc-1Ml/ Dose) 1 ml Parenteral Electrolytes 20 ml In Amino Acid 5%-D15w 1,000 ml @ 30 mls/hr IV .Q24H [facility] Rx#:[id number] Normal Saline Pressure 72 72 51 Bag Sodium Chloride 0.9% 1, 20 000 ml @ 20 mls/hr IV . Q24H [facility] Rx#:[id number] Intake, IV Titration 45 125 Amount Diltiazem 125 mg In 45 125 Sodium Chloride 0.9% 100 ml @ Per Protocol IV .Q0M [facility] Rx#:[id number] Output: Urine 15 5 0 Other: Voiding Method Indwelling Catheter Indwelling Catheter Indwelling Catheter # Voids 1 ABP, PAP, CO, CI - Last Documented Arterial Blood Pressure 123/59 - Exam General: [non toxic], [dyspneic unable to speak, on Airvo], [appears at stated age] Derm: [warm], [dry] Head: [atraumatic], [normocephalic], [symmetric] Eyes: [EOMI], [no lid lag], [anicteric sclera] Mouth: [no lip lesion], [mucus membranes moist] Cardiovascular: [S1S2 ireg], [tachycardia], [positive DP pulse bilateral], Lungs: [Coarse breath sounds bilaterally], [no rhonchi, no rales] , [accessory muscle use] Abdominal: [soft], [ nontender to palpation], [no guarding], [no appreciable organomegaly] Ext: [no gross muscle atrophy], [2 + pitting edema in all 4 extremities], [no contractures] Neuro: [Unable to determine] Psych: [Unable to determine] - Labs CBC & Chem 7: 06/21/19 04:38 06/21/19 04:38 Labs: Abnormal Lab Results - Last 24 Hours (Table) 06/20/19 06/20/19 06/21/19 Range/Units 18:12 23:56 04:38 WBC (3.8-10.6) k/uL RBC (3.80-5.40) m/uL Hgb (11.4-16.0) gm/dL Hct (34.0-46.0) % RDW (11.5-15.5) % Neutrophils # (1.3-7.7) k/uL ABG pH (7.35-7.45) ABG HCO3 (21-25) mmol/L Chloride 109 H (98-107) mmol/L Carbon Dioxide 19 L (22-30) mmol/L BUN 53 H (7-17) mg/dL Creatinine 3.12 H (0.52-1.04) mg/dL Glucose 144 H (74-99) mg/dL POC Glucose (mg/dL) 152 H 146 H (75-99) mg/dL Phosphorus 7.3 H (2.5-4.5) mg/dL Magnesium 2.4 H (1.6-2.3) mg/dL Albumin 2.5 L (3.5-5.0) g/dL 06/21/19 06/21/19 06/21/19 Range/Units 04:38 05:51 09:32 WBC 25.4 H (3.8-10.6) k/uL RBC 3.26 L (3.80-5.40) m/uL Hgb 9.2 L (11.4-16.0) gm/dL Hct 28.0 L (34.0-46.0) % RDW 23.1 H (11.5-15.5) % Neutrophils # 23.8 H (1.3-7.7) k/uL ABG pH 7.33 L (7.35-7.45) ABG HCO3 19 L (21-25) mmol/L Chloride (98-107) mmol/L Carbon Dioxide (22-30) mmol/L BUN (7-17) mg/dL Creatinine (0.52-1.04) mg/dL Glucose (74-99) mg/dL POC Glucose (mg/dL) 158 H (75-99) mg/dL Phosphorus (2.5-4.5) mg/dL Magnesium (1.6-2.3) mg/dL Albumin (3.5-5.0) g/dL 06/21/19 Range/Units 11:16 WBC (3.8-10.6) k/uL RBC (3.80-5.40) m/uL Hgb (11.4-16.0) gm/dL Hct (34.0-46.0) % RDW (11.5-15.5) % Neutrophils # (1.3-7.7) k/uL ABG pH (7.35-7.45) ABG HCO3 (21-25) mmol/L Chloride (98-107) mmol/L Carbon Dioxide (22-30) mmol/L BUN (7-17) mg/dL Creatinine (0.52-1.04) mg/dL Glucose (74-99) mg/dL POC Glucose (mg/dL) 160 H (75-99) mg/dL Phosphorus (2.5-4.5) mg/dL Magnesium (1.6-2.3) mg/dL Albumin (3.5-5.0) g/dL Assessment and Plan Assessment: Acute hypoxic respiratory failure with Septic shock secondary to COVID 19 and MRSA pneumonia Acute kidney injury with metabolic acidosis from septic shock requiring dialysis Anemia AFib with RVR Hypertension Elevated troponin likely demand ischemia Hip tumor Patient was extubated on 06/18/2019. Chest x-ray shows minimal improvement. Leukocytosis of 24.3-11.4-19.2-17.4-15.7-20.8 with neutrophilia and lymphopenia pointing towards bacterial infection. Sputum culture positive MRSA and Bernadette albicans. Urine culture positive Bernadette albicans. Previous urine culture positive for E. coli. Pro-calcitonin, LDH, ferritin and CRP decreasing. Plans: Continue cefepime and Vancomycin. Fluconazole changed to Anidulafungin. Infectious disease following. Continue trending inflammatory markers. No plans to reintubated if fails extubation. BUN 53, creatinine 3.12. Likely prerenal from septic shock. Plans: Continue calcium acetate. Continue sodium bicarb supplementation. Nephrology following. Dialysis today. Levophed used for bouts of hypotension during dialysis. Hemoglobin 9.2 today. Given 2 units of PRBC while in ICU. No obvious source of bleed. Plans: DC Lovenox and start subcut Heparin. Follow repeat CBC. Plans: Lovenox discontinued due to drop in hemoglobin, continue subcutaneous heparin. Continue Cardizem drip. Maintain potassium greater than 4 and magnesium greater than 2. Follow cardiology recommendations. Telemetry monitoring. BP 167/90. Plans: Lisinopril discontinued for acute kidney injury. Metoprolol discontinued for hypotension. On Cardizem IV for A-Fib with RVR. Monitor vitals, adjust medications as necessary. Her troponins are flat. Troponin 0.48, 0.195, 0.190. Likely demand ischemia from sepsis. Echocardiogram with no wall motion abnormalities. Plans: Cardiology evaluated, nothing further to do. Plans: Adequate pain management. [Patient extubated to BiPAP, now on Airvo. Plans on no reintubation if fails BiPAP, family agreeable and aware. Getting dialysis today. Pulmonology, infectious disease, nephrology, cardiology following. Her prognosis is poor.]
--- NOTE | 2019-06-21 18:49 | PN ---
PROGRESS NOTE DATE OF SERVICE: 06/21/2019 REASON FOR FOLLOWUP: Pneumonia. INTERVAL HISTORY: The patient is currently afebrile. The patient is hemodynamically stable; still requiring high-flow nasal cannula oxygen. Remains slightly lethargic and unable to provide any history. No vomiting or diarrhea reported. PHYSICAL EXAMINATION: Blood pressure 114/65, pulse of 99, temperature 98.2. She is 97% on high-flow oxygen nasal cannula. General description is an elderly female lying in bed in no distress. RESPIRATORY SYSTEM: Unlabored breathing. Clear to auscultation anteriorly. HEART: S1, S2. Regular rate and rhythm. ABDOMEN: Soft. No tenderness. LABS: Hemoglobin 9.2, white count up to 25.4 with a BUN of 53, creatinine 3.12. DIAGNOSTIC IMPRESSION AND PLAN: Patient with pneumonia. Sputum has been MRSA. Patient is covered with vancomycin. Zyvox could not be used, as the patient is on Paxil, now with worsening of the white count in this patient who has been on TPN and high risk of fungal infection despite being on Diflucan. We will discontinue the Diflucan. Will start the patient on Eraxis and monitor her clinical course closely. Continue with supportive care. MMODL / IJN: [id number] /
[2019-06-21 20:56] VITALS: BP 109/41; PULSE 97
[2019-06-21] MEDS ORDERED: VANCOMYCIN 1,250 MG in SODIUM CHLORIDE 0.9% 250 ML IVPB ONE (21:00)
[2019-06-22] MEDS: INSULIN ASPART (NovoLOG) 100 UNIT/ML VIAL SQ SCH (00:40)
[2019-06-22] MEDS: HEPARIN SODIUM,PORCINE 5,000 UNIT/ML 1 ML VIAL SQ SCH (00:40)
[2019-06-22 03:33] VITALS: RESP 21
[2019-06-22] MEDS ORDERED: ANIDULAFUNGIN 100 MG in SODIUM CHLORIDE 0.9% 100 ML IVPB SCH (09:00)
--- NOTE | 2019-06-24 06:34 | CDI ---
Documentation Clarification Form Date: 06/24/2019 05:25:00 AM From: Jasmine Evans Phone: If you have a question about this query, please contact Laura Lainez Hotel Housekeeper at [phone] between 8am and 5pm. Admit Date: 05/26/2019 03:33:00 PM Patient Name: Tia Garcia Visit Number: [id number] Discharge Date: 06/22/2019 03:00:00 AM ATTENTION: The Clinical Documentation Specialists (CDI) and [facility] Coding Staff appreciate your assistance in clarifying documentation. Please respond to the clarification below the line at the bottom and electronically sign. The CDI & [facility] Coding staff will review the response and follow-up if needed. Please note: Queries are made part of the Legal Health Record. If you have any questions, please contact the author of this message via ITS. Dr. Staci Hooker [CKD is defined as GFR<=60 for >= 3 months. Before placing query, please validate historical GFR labs] Acute and chronic renal failure is documented in Dr. Varela's consult prior to dialysis catheter insertion. Please clarify the stage of patient's chronic renal failure History/Risk Factors: Clinical Indicators: Current BUN/CR/GFR Creat. 3.12 BUN 53 GFR > 90 Treatment: dialysis In order to capture the severity of condition, please clarify the stage of the CKD, if known: CKD Stage 1 (GFR > 90) CKD Stage 2 (GFR 60-89) CKD Stage 3 (GFR 30-59) CKD Stage 4 (GFR 15-29) CKD Stage 5 (GFR <15) ESRD Other, please specify Unable to determine unable to determine MTDD
--- NOTE | 2019-06-24 06:56 | CDI ---
Documentation Clarification Form Date: 06/24/2019 06:39:05 AM From: Jasmine Evans Phone: If you have a question about this query, please contact Lauar Lainez Field Services Analyst at [phone] between 8am and 5pm. Admit Date: 05/26/2019 03:33:00 PM Patient Name: Tia Garcia Visit Number: [id number] Discharge Date: 06/22/2019 03:00:00 AM ATTENTION: The Clinical Documentation Specialists (CDI) and [facility] Coding Staff appreciate your assistance in clarifying documentation. Please respond to the clarification below the line at the bottom and electronically sign. The CDI & [facility] Coding staff will review the response and follow-up if needed. Please note: Queries are made part of the Legal Health Record. If you have any questions, please contact the author of this message via ITS. Dr. Laisha Bliss Patient has documented fluid overload. Early May echo stated hypertensive HD with EF of 55-60%. Patient received IV Lasix 40 mg. Please clarify if patient's fluid overload is associated with CHF. Is fluid overload cardiogenic or non-cardiogenic? History/Risk Factors: Patient with fluid overload HTN HD per echo. patient on [facility] vent Clinical Indicators: VS/Pulse OX: 98.4 F, 87 bpm, 20 151/67, 97% RA - 92 % 2L on 05/25 BNP: Echocardiogram Results: HTN HD Chest X Ray: tiny pleural effusions Treatment: 40 MG IV Lasix In your professional opinion, can you please clarify if fluid overload is associated with CHF. Is fluid overload cardiogenic or non cardiogenic? Systolic Heart Failure: Acute Chronic Acute on Chronic Diastolic Heart Failure: Acute Chronic Acute on Chronic Systolic & Diastolic Heart Failure: Acute Chronic Acute on Chronic Heart Failure Unable to Determine Other, please specify MTDD
--- NOTE | 2019-06-30 08:56 | P.DS ---
Providers Date of admission: 05/26/19 15:33 Expected date of discharge: 06/21/19 Attending physician: Laisha Bliss DO Consults: 05/27/19 07:53 Consult Physician Routine Consulting Provider: Samira Billings Consult Reason/Comments: fever possible covid Do you want consulting provider notified?: Yes 05/31/19 09:42 Consult Physician Stat Consulting Provider: Shanelle Cooper Consult Reason/Comments: respiratory failure, COVID Do you want consulting provider notified?: Yes 06/10/19 08:44 Consult Physician Routine Consulting Provider: Kenney Maki Consult Reason/Comments: acute kidney injury Do you want consulting provider notified?: Yes 06/11/19 13:38 Consult Physician Stat Consulting Provider: Ashkan Varela Consult Reason/Comments: TEmporary dialysis catheter placement Do you want consulting provider notified?: Already Contacted Primary care physician: Physician Nonstaff Hospital Course: 78-year-old female with PMH of hypertension presented to the ED for epigastric discomfort and intractable nausea and vomiting. In the ED, she was noted to have an elevated troponin of 0.418 with T-wave inversions on EKG. She was started on aspirin and heparin drip and was admitted for non-ST elevation PA. On 05/27/2019 she was noted to have spiked a fever thought to be possibly related to UTI or COVID 19 infection. Troponins were trended which went from 0.195-0.190. Her troponins were related to demand ischemia probably from sepsis. Influenza A and B was negative. Urine culture did come back positive for E. coli that was sensitive to Rocephin. COVID testing was subsequently positive. She was initiated on hydroxychloroquine, azithromycin, Rocephin, zinc and vitamin C. Infectious disease was consulted and discontinued her Rocephin and azithromycin. Echocardiogram was done which showed an EF of 55-60%. Her respiratory status worsened and to 05/31/2019. Her oxygen requirements increased from 8 L nasal cannula to 15 L high flow. It was noted that she was DO NOT RESUSCITATE and DO NOT INTUBATE. I had a long conversation with the patient and she was agreeable for intubation. Pulmonology was consulted and she was moved to the ICU for elective intubation. Sedation holiday was attempted on June 01 and June 02. She did have diarrhea for which she was given cholestyramine, C. diff was negative. Patient was extubated on 06/04/2019. She did go into atrial flutter on telemetry on 06/04/2019 for which she was started on therapeutic Lovenox by cardiology. Her Rocephin was started on 06/05/2019 for total of 3 doses to treat UTI. Her respiratory status continued to worsen after extubation patient was reintubated on 06/09/2019. On June 09 patient was noted to be in A. fib with rate of 103-120 bpm for which she was started on Cardizem drip. Patient required pressors to maintain BP and was started on norepinephrine IV. Vancomycin was added to her medication regimen of cefepime and hydroxychloroquine was restarted for worsening leukocytosis and inflammatory markers. Urine, blood and sputum cultures were collected. Sputum culture grew MRSA and Mariah albicans. Her urine culture grew mariah albicans and she was started on Fluconazole IV. Her renal function and urine production continued to worsen and nephrology was consulted. Dialysis catheter was placed on 06/11/2019 and dialysis was initiated. Patient underwent sedation holiday on June 14 and , she has been minimally responsive and unable to follow commands up until this time. Her condition continues to remain critical. She was extubated on 06/18/2019 and has been on BiPAP since. There are plans to not reintubate her if she fails BiPAP. On 06/21/2019 she was transitioned to Airvo. She did get 2 units of PRBC on 06/16 and 06/18 and her hemoglobin has remained stable since. She was started on TPN for nutritional support. She was receiving dialysis on a daily basis. On 06/22/2019, patient deteriorated decision was made to make the patient comfort care. Patient at 1:20 AM on 06/22/2019. Family was notified. Discharge diagnosis: Acute hypoxic respiratory failure with Septic shock secondary to COVID 19 and MRSA pneumonia Acute kidney injury with metabolic acidosis from septic shock requiring dialysis Anemia AFib with RVR Hypertension Elevated troponin likely demand ischemia Hip tumor Pertinent Studies: Chest x-ray, echocardiogram, KUB Procedures: Catheter for dialysis insertion Patient Condition at Discharge: Critical Plan - Discharge Summary Discharge Rx Participant: No New Discharge Prescriptions: No Action PARoxetine HCL [Paxil] 10 mg PO DAILY Fosinopril [Monopril] 10 mg PO HS Discharge Medication List Fosinopril [Monopril] 10 mg PO HS 05/26/19 [History] PARoxetine HCL [Paxil] 10 mg PO DAILY 05/26/19 [History] Follow up Appointment(s)/Referral(s): Nonstaff,Physician [Primary Care Provider] - 1-2 days Discharge Disposition: - Preliminary Cause of Preliminary Cause of : Acute hypoxic respiratory failure from coronavirus pneumonia
--- NOTE | 2019-06-30 11:05 | CDI ---
documentation Clarification Form Date: 06/24/2019 05:39:00 AM From: Jasmine Evans Phone: If you have a question about this query, please contact Laura Lainez Process Control Tech at [phone] between 8am and 5pm. Admit Date: 05/26/2019 03:33:00 PM Patient Name: Tia Garcia Visit Number: [id number] Discharge Date: 06/22/2019 03:00:00 AM ATTENTION: The Clinical Documentation Specialists (CDI) and [facility] Coding Staff appreciate your assistance in clarifying documentation. Please respond to the clarification below the line at the bottom and electronically sign. The CDI & [facility] Coding staff will review the response and follow-up if needed. Please note: Queries are made part of the Legal Health Record. If you have any questions, please contact the author of this message via ITS. Dr. Laisha Bliss Patient has documented fluid overload. Early May echo stated hypertensive HD with EF of 55-60%. Patient received IV Lasix 40 mg. Please clarify if patient's fluid overload is associated with CHF. Is fluid overload cardiogenic or non-cardiogenic? History/Risk Factors: Patient with fluid overload HTN HD per echo. patient on [facility] vent Clinical Indicators: VS/Pulse OX: 98.4 F, 87 bpm, 20 151/67, 97% RA - 92 % 2L on 05/25 BNP: Echocardiogram Results: HTN HD Chest X Ray: tiny pleural effusions Treatment: 40 MG IV Lasix In your professional opinion, can you please clarify if fluid overload is associated with CHF. Is fluid overload cardiogenic or non cardiogenic? Systolic Heart Failure: Acute Chronic Acute on Chronic Diastolic Heart Failure: Acute Chronic Acute on Chronic Systolic & Diastolic Heart Failure: Acute Chronic Acute on Chronic Heart Failure Unable to Determine Other, please specify MTDD
--- NOTE | 2019-07-01 06:10 | CDI ---
Documentation Clarification Form Date: 06/24/2019 05:39:00 AM From: Jasmine Evans Phone: If you have a question about this query, please contact Laura Lainez Manager Product Design at [phone] between 8am and 5pm. Admit Date: 05/26/2019 03:33:00 PM Patient Name: Tia Garcia Visit Number: [id number] Discharge Date: 06/22/2019 03:00:00 AM ATTENTION: The Clinical Documentation Specialists (CDI) and [facility] Coding Staff appreciate your assistance in clarifying documentation. Please respond to the clarification below the line at the bottom and electronically sign. The CDI & [facility] Coding staff will review the response and follow-up if needed. Please note: Queries are made part of the Legal Health Record. If you have any questions, please contact the author of this message via ITS. Dr. Devaughn Godfrey Patient has documented fluid overload. Early May echo stated hypertensive HD with EF of 55-60%. Patient received IV Lasix 40 mg. Please clarify if patient's fluid overload is associated with CHF. Is fluid overload cardiogenic or non-cardiogenic? History/Risk Factors: Patient with fluid overload HTN HD per echo. patient on [facility] vent Clinical Indicators: VS/Pulse OX: 98.4 F, 87 bpm, 20 151/67, 97% RA - 92 % 2L on 05/25 BNP: Echocardiogram Results: HTN HD Chest X Ray: tiny pleural effusions Treatment: 40 MG IV Lasix In your professional opinion, can you please clarify if fluid overload is associated with CHF. Is fluid overload cardiogenic or non cardiogenic? Systolic Heart Failure: Acute Chronic Acute on Chronic Diastolic Heart Failure: Acute Chronic Acute on Chronic Systolic & Diastolic Heart Failure: Acute Chronic Acute on Chronic Heart Failure Unable to Determine Other, please specify fluid overload is likely non cardiogenic MTDD
--- NOTE | 2019-07-08 09:44 | CDI ---
Documentation Clarification Form Date: 06/24/2019 05:25:00 AM From: Jasmine Evans Phone: If you have a question about this query, please contact Laura Lainez Flight Operations Inspector at [phone] between 8am and 5pm. Admit Date: 05/26/2019 03:33:00 PM Patient Name: Tia Garcia Visit Number: [id number] Discharge Date: 06/22/2019 03:00:00 AM ATTENTION: The Clinical Documentation Specialists (CDI) and [facility] Coding Staff appreciate your assistance in clarifying documentation. Please respond to the clarification below the line at the bottom and electronically sign. The CDI & [facility] Coding staff will review the response and follow-up if needed. Please note: Queries are made part of the Legal Health Record. If you have any questions, please contact the author of this message via ITS. Dr. Staci Hooker CKD is defined as GFR<=60 for >= 3 months. Before placing query, please validate historical GFR labs] Acute and chronic renal failure is documented in Dr. Varela's consult prior to dialysis catheter insertion. Please clarify the stage of patient's chronic renal failure History/Risk Factors: Clinical Indicators: Current BUN/CR/GFR Creat. 3.12 BUN 53 Treatment: dialysis In order to capture the severity of condition, please clarify the stage of the CKD, if known: CKD Stage 1 (GFR > 90) CKD Stage 2 (GFR 60-89) CKD Stage 3 (GFR 30-59) CKD Stage 4 (GFR 15-29) CKD Stage 5 (GFR <15) ESRD Other, please specify stage 4 Unable to determine MTDD
== END 2019-06-22 03:00 | disposition expired | DRG 870 ==
LOC: EC 12:36 → 3SCARD 15:33 → 4SSUR 05-30 18:37 → 2SICU 05-31 12:55 → 4SSUR 06-08 14:24 → 2SICU 06-09 10:50
PROVIDERS: ADMIT Internal Medicine; ATTEND Internal Medicine
PROC: 5A1945Z Respiratory Ventilation, 24-96 Consecutive Hours (ICD-10-PCS; principal; 2019-05-31)
PROC: 0BH17EZ Insertion of Endotracheal Airway into Trachea, Via Natural or Artificial Opening (ICD-10-PCS; 2019-05-31)
PROC: 03HY32Z Insertion of Monitoring Device into Upper Artery, Percutaneous Approach (ICD-10-PCS; 2019-05-31)
PROC: 4A133B1 Monitoring of Arterial Pressure, Peripheral, Percutaneous Approach (ICD-10-PCS; 2019-05-31)
PROC: 4A133J1 Monitoring of Arterial Pulse, Peripheral, Percutaneous Approach (ICD-10-PCS; 2019-05-31)
PROC: 02HV33Z Insertion of Infusion Device into Superior Vena Cava, Percutaneous Approach (ICD-10-PCS; 2019-05-31)
PROC: 5A1955Z Respiratory Ventilation, Greater than 96 Consecutive Hours (ICD-10-PCS; 2019-06-09)
PROC: 0BH17EZ Insertion of Endotracheal Airway into Trachea, Via Natural or Artificial Opening (ICD-10-PCS; 2019-06-09)
PROC: 03HY32Z Insertion of Monitoring Device into Upper Artery, Percutaneous Approach (ICD-10-PCS; 2019-06-09)
PROC: 4A133B1 Monitoring of Arterial Pressure, Peripheral, Percutaneous Approach (ICD-10-PCS; 2019-06-09)
PROC: 4A133J1 Monitoring of Arterial Pulse, Peripheral, Percutaneous Approach (ICD-10-PCS; 2019-06-09)
PROC: 02HV33Z Insertion of Infusion Device into Superior Vena Cava, Percutaneous Approach (ICD-10-PCS; 2019-06-09)
PROC: 3E033XZ Introduction of Vasopressor into Peripheral Vein, Percutaneous Approach (ICD-10-PCS; 2019-06-09)
PROC: 0YH733Z Insertion of Infusion Device into Right Femoral Region, Percutaneous Approach (ICD-10-PCS; 2019-06-11)
PROC: 5A1D70Z Performance of Urinary Filtration, Intermittent, Less than 6 Hours Per Day (ICD-10-PCS; 2019-06-15)
PROC: 30233N1 Transfusion of Nonautologous Red Blood Cells into Peripheral Vein, Percutaneous Approach (ICD-10-PCS; 2019-06-17)
PROC: 5A09457 Assistance with Respiratory Ventilation, 24-96 Consecutive Hours, Continuous Positive Airway Pressure (ICD-10-PCS; 2019-06-18)
PROC: 0BH17EZ Insertion of Endotracheal Airway into Trachea, Via Natural or Artificial Opening (ICD-10-PCS; 2019-06-20)
PROC: 3E0436Z Introduction of Nutritional Substance into Central Vein, Percutaneous Approach (ICD-10-PCS; 2019-06-21)
DX: A41.89 Other specified sepsis (principal); B37.1 Pulmonary candidiasis; J12.89 Other viral pneumonia; J15.212 Pneumonia due to Methicillin resistant Staphylococcus aureus; J96.01 Acute respiratory failure with hypoxia; J96.02 Acute respiratory failure with hypercapnia; N17.0 Acute kidney failure with tubular necrosis; R65.21 Severe sepsis with septic shock; U07.1 COVID-19; R40.2314 Coma scale, best motor response, none, 24 hours or more after hospital admission; R40.2114 Coma scale, eyes open, never, 24 hours or more after hospital admission; R40.2214 Coma scale, best verbal response, none, 24 hours or more after hospital admission; B37.0 Candidal stomatitis; B37.49 Other urogenital candidiasis; E22.2 Syndrome of inappropriate secretion of antidiuretic hormone; E87.2 Acidosis; G62.81 Critical illness polyneuropathy; I24.8 Other forms of acute ischemic heart disease; I48.20 Chronic atrial fibrillation, unspecified; J44.0 Chronic obstructive pulmonary disease with (acute) lower respiratory infection; I48.92 Unspecified atrial flutter; N18.4 Chronic kidney disease, stage 4 (severe); C49.21 Malignant neoplasm of connective and soft tissue of right lower limb, including hip; D63.1 Anemia in chronic kidney disease; Z66 Do not resuscitate; Z51.5 Encounter for palliative care; A41.02 Sepsis due to Methicillin resistant Staphylococcus aureus; E83.39 Other disorders of phosphorus metabolism; F32.9 Major depressive disorder, single episode, unspecified; B96.20 Unspecified Escherichia coli [E. coli] as the cause of diseases classified elsewhere; Z90.49 Acquired absence of other specified parts of digestive tract; D64.9 Anemia, unspecified; D72.810 Lymphocytopenia; E86.0 Dehydration; E87.5 Hyperkalemia; E87.6 Hypokalemia; R19.7 Diarrhea, unspecified; R11.2 Nausea with vomiting, unspecified; E87.70 Fluid overload, unspecified; I12.9 Hypertensive chronic kidney disease with stage 1 through stage 4 chronic kidney disease, or unspecified chronic kidney disease; M19.90 Unspecified osteoarthritis, unspecified site; R91.8 Other nonspecific abnormal finding of lung field; R74.0 Nonspecific elevation of levels of transaminase and lactic acid dehydrogenase [LDH]; J20.8 Acute bronchitis due to other specified organisms; I25.2 Old myocardial infarction; Z79.899 Other long term (current) drug therapy; Z80.0 Family history of malignant neoplasm of digestive organs; Z87.891 Personal history of nicotine dependence; Z90.710 Acquired absence of both cervix and uterus
CPT/HCPCS: 36415; 36600; 71045; 71046; 74018; 80048; 80053; 80061; 80202; 81001; 82040; 82330; 82550; 82553; 82728; 82805; 83520; 83540; 83550; 83605; 83615; 83735; 83930; 83935; 84100; 84132; 84145; 84300; 84478; 84484; 85025; 85027; 85379; 85610; 85730; 86140; 86704; 86706; 86850; 86900; 86901; 86920; 87040; 87070; 87077; 87086; 87186; 87205; 87324; 87340; 87502; 90935; 93005; 93306; 94002; 94003; 94640; 94660; 96361; 96365; 96375; 96376; 99285